=== PATIENT | male | born 1940 | race Caucasian/White ===

== ENCOUNTER 2016-11-08 16:38 | Observation (INO) | payer OTHER ==
[~2016-11-08] VITALS: Ht 157.5 cm; Wt 89.0 kg
[~2016-11-08 16:38] MED LIST: ALBUAER2 INH; ANT25 PO; NVLGI SC; POTA10TA32 PO; SRVDIN60 INH; VST25HP PO; ZOLP5TAB PO
--- NOTE | 2016-11-08 17:10 | DIAGNOSTIC IMAGING REPORT ---
CHEST ONE VIEW PORTABLE CLINICAL HISTORY: Chest Pain dyspnea COMPARISON STUDY: 09/10/2016 FINDINGS: The bones soft tissues and hemidiaphragms are normal. The cardiomediastinal silhouette is normal. The lungs are clear. The pulmonary vasculature is normal. IMPRESSION: Negative chest. Electronically signed by: Hayden Gonzalez M.D. 11/08/2016 5:09 PM Dictated Date/Time: 11/08/2016 5:09 PM
[2016-11-08 17:19] LABS: BASO % 0.7 %; BASO ABS # 0.06 K/uL (0-0.2); COMPLETE YES; EOS % 2.4 %; HEMATOCRIT 40.8 % (42-52); IG% 0.2 %; LYMPH % 19.8 %; MEAN CELL VOLUME 87.7 fL (80-100); MEAN CORPUSCULAR HEMOGLOBIN 30.3 pg (25-34); MEAN CORPUSCULAR HGB CONC 34.6 g/dl (32-36); MEAN PLATELET VOLUME 10.8 fL (7.4-10.4); MONO % 11.9 %; PLATELET COUNT 132 K/uL (130-400); RED BLOOD COUNT 4.65 M/uL (4.7-6.1); WHITE BLOOD COUNT 8.07 K/uL (4.8-10.8)
[2016-11-08] MEDS ORDERED: NVLGIPEN SC (17:22)
[2016-11-08] MEDS ORDERED: PRVHFAIN INH (17:26)
--- NOTE | 2016-11-08 17:27 | EMERGENCY ROOM VISIT NOTE ---
History Report prepared by Pranav: Darya Rahman Under the Supervision of: Dr. Dharmesh Neumann M.D. First contact with patient: 16:39 Stated Complaint: CHEST PAIN History of Present Illness The patient is a 76 year old male who presents to the Emergency Room with complaints of an episode of chest pain occurring [employer]. He was sitting in his chair when his chest pain began. The patient's [id number] called an ambulance. When EMS arrived the patient was hypotensive. He was given 1 nitro, aspirin, and fluids en route to the ED. He states that his pain has improved. The patient states that he has had chest pain intermittently for some time that resolves with nitro. He also reports shortness of breath with exertion that has been going on for a while as well. He has a history of [place] but denies any history of cardiac stents. Source of History: patient, EMS Onset: [employer]TER[employer] Position: chest Timing: other (episode) Modifying Factors (Worsening): exertion Modifying Factors (Relieving): other (nitro) Associated Symptoms: + SOB Review of Systems See HPI for pertinent positives & negatives. A total of 10 systems reviewed and were otherwise negative. 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 (5) Diabetes mellitus type 2 in obese (6) Diverticulosis (7) Dyslipidemia (8) GERD (gastroesophageal reflux disease) (9) GI bleed (10) Hiatal hernia (11) HTN (hypertension) (12) Kidney stone (13) Portal hypertensive gastropathy (14) Transaminitis Surgical Problems: (1) H/O hemorrhoidectomy (2) History of cardiac catheterization (3) History of colonoscopy (4) History of lumbar laminectomy Family History FHx: heart disease FATHER ( from [place] age 65) BROTHER (CABG in his 40s) Social History Smoking Status: Former Smoker Alcohol Use: none Housing Status: lives alone Current/Historical Medications Scheduled Empagliflozin (Jardiance), 10 MG PO DAILY Ferrous Gluconate (Ferrous Gluconate), 1 TAB PO BID Furosemide (Furosemide), 40 MG PO DAILY Insulin Aspart (Novolog Flexpen), 38 SC UD Insulin Glargine (Lantus Solostar), 45 UNITS SC BID Isosorbide Mononitrate Ext Rel (Imdur Ext Rel), 30 MG PO QAM Lactulose (Chronulac), 30 ML PO TID Losartan Potassium (Losartan Potassium), 25 MG PO DAILY Magnesium Oxide (Mag-Ox), 400 MG PO BID Metoprolol Tartrate (Lopressor), 25 MG PO BID Pantoprazole (Pantoprazole Sodium), 40 MG PO BID Potassium Chloride Microencaps (Potassium Chloride Er), 20 MEQ PO DAILY Rifaximin (Xifaxan), 550 MG PO BID Rosuvastatin Calcium (Rosuvastatin Calcium), 40 MG PO DAILY Tamsulosin HCl (Tamsulosin HCl), 0.4 MG PO DAILY Scheduled PRN Albuterol (Ventolin Hfa), 2 PUFFS INH Q4H PRN for Shortness of Breath Hydroxyzine HCl (Hydroxyzine Pamoate), 25 MG PO HS PRN for Anxiety Nitroglycerin (Nitrostat), 0.4 MG UT UD PRN for Chest Pain Zolpidem Tartrate (Ambien), 10 MG PO HS PRN for Sleep Allergies Coded Allergies: PRASHANT Inhibitors (Unverified Allergy, Severe, ANGIOEDEMA from 10/10/11 ED adm , 11/08/16) Simvastatin (Unverified Allergy, Unknown, RASH, SORE ALL OVER. 2013: Uses Crestor, 11/08/16) Physical Exam Vital Signs Date Time Temp Pulse Resp B/P Pulse Ox O2 Delivery O2 Flow Rate FiO2 11/08/16 17:30 64 9 92 11/08/16 17:28 94/52 11/08/16 17:15 61 19 92 11/08/16 17:02 62 11/08/16 17:00 62 15 94 11/08/16 16:58 96/48 11/08/16 16:48 94 Room Air 11/08/16 16:48 94 Room Air 11/08/16 16:48 36.5 65 20 112/52 94 Room Air Physical Exam GENERAL: Patient is well appearing and in no acute distress. HEENT: No acute trauma, normocephalic atraumatic, mucous membranes moist, no nasal congestion, no scleral icterus. NECK: No stridor, no adenopathy, no meningismus, trachea is midline. LUNGS: No dyspnea. Clear to auscultation and equal bilaterally. No wheeze, no rhonchi. HEART: Regular rate and rhythm. No murmurs, rubs, gallops appreciated. ABDOMEN: Soft, nontender, bowel sounds positive, no masses appreciated, no peritonitis. BACK: No midline tenderness, no CVA tenderness EXTREMITIES: Normal motion all extremities, no cyanosis, trace edema bilaterally. NEUROLOGIC: Alert and oriented, no acute motor or sensory deficits, no focal weakness, cranial nerves grossly intact. SKIN: No rash, no jaundice, no diaphoresis. Medical Decision & Procedures ER Provider Diagnostic Interpretation: Radiology results and stated below per my review and radiologist interpretation: CHEST ONE VIEW PORTABLE CLINICAL HISTORY: Chest Pain dyspnea COMPARISON STUDY: 09/10/2016 FINDINGS: The bones soft tissues and hemidiaphragms are normal. The cardiomediastinal silhouette is normal. The lungs are clear. The pulmonary vasculature is normal. IMPRESSION: Negative chest. Electronically signed by: Hayden Gonzalez M.D. 11/08/2016 5:09 PM Dictated Date/Time: 11/08/2016 5:09 PM Laboratory Results 11/08/16 16:14 Red Blood Count 4.65, Mean Corpuscular Volume 87.7, Mean Corpuscular Hemoglobin 30.3, Mean Corpuscular Hemoglobin Concent 34.6, Mean Platelet Volume 10.8, Neutrophils (%) (Auto) 65.0, Lymphocytes (%) (Auto) 19.8, Monocytes (%) (Auto) 11.9, Eosinophils (%) (Auto) 2.4, Basophils (%) (Auto) 0.7, Neutrophils # (Auto ) 5.24, Lymphocytes # (Auto) 1.60, Monocytes # (Auto) 0.96, Eosinophils # (Auto ) 0.19, Basophils # (Auto) 0.06 11/08/16 16:14 Test 11/08/16 16:14 White Blood Count 8.07 K/uL (4.8-10.8) Red Blood Count 4.65 M/uL (4.7-6.1) Hemoglobin 14.1 g/dL (14.0-18.0) Hematocrit 40.8 % (42-52) Mean Corpuscular Volume 87.7 fL (80-100) Mean Corpuscular Hemoglobin 30.3 pg (25-34) Mean Corpuscular Hemoglobin Concent 34.6 g/dl (32-36) Platelet Count 132 K/uL (130-400) Mean Platelet Volume 10.8 fL (7.4-10.4) Neutrophils (%) (Auto) 65.0 % Lymphocytes (%) (Auto) 19.8 % Monocytes (%) (Auto) 11.9 % Eosinophils (%) (Auto) 2.4 % Basophils (%) (Auto) 0.7 % Neutrophils # (Auto) 5.24 K/uL (1.4-6.5) Lymphocytes # (Auto) 1.60 K/uL (1.2-3.4) Monocytes # (Auto) 0.96 K/uL (0.11-0.59) Eosinophils # (Auto) 0.19 K/uL (0-0.5) Basophils # (Auto) 0.06 K/uL (0-0.2) RDW Standard Deviation 54.0 fL (36.4-46.3) RDW Coefficient of Variation 16.9 % (11.5-14.5) Immature Granulocyte % (Auto) 0.2 % Immature Granulocyte # (Auto) 0.02 K/uL (0.00-0.02) Anion Gap 11.0 mmol/L (3-11) Est Creatinine Clear Calc Drug Dose 34.6 ml/min Estimated GFR () 43.8 Estimated GFR (Non- 37.8 BUN/Creatinine Ratio 14.5 (10-20) Calcium Level 9.4 mg/dl (8.5-10.1) Laboratory results as reviewed by me. Medications Administered Medications (Trade) Dose Ordered Sig/Suman Route Start Time Stop Time Status Last Admin Dose Admin Sodium Chloride (Nss 1000ml) 1,000 ml @ 125 mls/hr Q8H STAT IV 11/08/16 17:42 11/08/16 20:43 DC 11/08/16 17:42 125 MLS/HR ECG Indication: chest pain Rate (beats per minute): 62 Rhythm: normal sinus Findings: no acute ischemic change, no ectopy Comparison ECG Date: 09/10/16 Change: no significant change ED Course 1639: The patient was evaluated in room C9. A complete history and physical exam was performed. 1741: NSS 1000 ml @ 125 mls/hr IV 1746: I reassessed the patient 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. He is feeling better and resting comfortably. I discussed the results and treatment plan with the patient. I answered all pertaining questions that he had. He expressed understanding and verbalized agreement. 1757: I spoke with Mariana Noland PA-C. We discussed the patients results and treatment plan. The patient will be evaluated by the [facility] for further management. 1810: I reassessed the patient and he is doing well. Medical Decision Differential: Cardiac Ischemia (STEMI, NSTEMI, Unstable Angina, etc), Aortic Dissection, Arrhythmia, Pulmonary Embolism, Pneumonia, Pneumothorax, MSK, Infectious, Pericarditis/Myocarditis, Esophageal Rupture, Gastrointestinal, amongst other pathologies entertained. 76 yr old male with reported history of CAD notes onset substernal chest pain this afternoon which resolved after SLNTG. Notes shob with exertion over last few days. Reportedly had hypotension on EMS arrival which resolved after NSS bolus, which I suspect was secondary to taking SLNTG prior to EMS arrival. No further symptoms. EKG unchanged from previous. With his age/history and this acute episode he will need to have further cardiac rule out. Stable throughout ED stay. Trop negative as are other labs. No evidence that this is PE, dissection, infectious in nature. Consults Time Called: 1749 Consulting Physician: Mariana Noland PA-C Returned Call: 1757 I spoke with Mariana Noland PA-C. We discussed the patients results and treatment plan. The patient will be evaluated by the [facility] for further management. Impression Primary Impression: Substernal precordial chest pain Scribe Attestation The scribe's documentation has been prepared under my direction and personally reviewed by me in its entirety. I confirm that the note above accurately reflects all work, treatment, procedures, and medical decision making performed by me. Departure Information Dispostion Being Evaluated By Hospitalist Referrals Atiya Baltazar D.O. (PCP)
[2016-11-08 17:36] LABS: BLOOD UREA NITROGEN 25 mg/dl (7-18); BUN/CREATININE RATIO 14.5 (10-20); CALCIUM 9.4 mg/dl (8.5-10.1); CARBON DIOXIDE 24 mmol/L (21-32); CHLORIDE 107 mmol/L (98-107); GLUCOSE 85 mg/dl (70-99); POTASSIUM 4.6 mmol/L (3.5-5.1); SODIUM 142 mmol/L (136-145)
[2016-11-08 17:40] LABS: CKMB/CK RATIO 2.2 (0-3.0)
[2016-11-08] MEDS ORDERED: SODIUM CHLORIDE 0.9% 1000ML 1,000 ML IV STA (17:42)
[2016-11-08] MEDS ORDERED: ONDANSETRON INJ 2 MG/ML 2 ML VIAL IV PRN (18:30)
[2016-11-08] MEDS ORDERED: ACETAMINOPHEN 325 MG TAB PO PRN (18:30)
[2016-11-08] MEDS ORDERED: NITROGLYCERIN 0.4 MG SL PER TAB CHARGE SL PRN (18:30)
[2016-11-08] MEDS ORDERED: GLUCAGON FOR INJ 1 MG VIAL SQ PRN (18:45)
[2016-11-08] MEDS ORDERED: ALBUTEROL HFA 8 GM INHALER INH PRN (18:45)
[2016-11-08] MEDS ORDERED: DEXTROSE 50% 50 ML SYR IV PRN (18:45)
[2016-11-08] MEDS ORDERED: ZOLPIDEM TARTRATE 5 MG TAB PO PRN (18:45)
[2016-11-08] MEDS ORDERED: hydrOXYzine HCL 25 MG TAB PO PRN (18:45)
[2016-11-08] MEDS ORDERED: MoRPHine SULFATE 2 MG/ML CARP IV PRN (18:45)
[2016-11-08] MEDS ORDERED: GLUCOSE 10 TABS/TUBE PO PRN (18:45)
[2016-11-08] MEDS ORDERED: GLUCOSE 40% GEL 15 GM TUBE PO PRN (18:45)
--- NOTE | 2016-11-08 18:58 | History and Physical ---
History & Physical Date & Time of Service: Nov 08, 2016 at 18:40 Chief Complaint: Chest Pain Primary Care Physician: Atiya Baltazar D.O. History of Present Illness Source: patient, family, clinic records, hospital records Patient seen and examined. 76 year old male with PMHx of CAD s/p stent, Severe Aortic Stenosis, HTN, HLD, KLEIN cirrhosis, CKD stage 3, and other problems listed below presents to the ED complaining of chest pain prior to arrival. Patient reports he was sitting relaxing when he developed substernal chest tightness that he rates as a 5/10. It was associated with SOB and diaphoresis. He took a nitro SL which helped alleviate the pain. EMS was called and he received Aspirin. By the time he got to the ED he was pain free. Patient reports he has had episodes like this in the past but they have never been bad enough to take nitro. Patient reports he had a URI last week and was on a Zpak. He reports he is feeling better. He denies fevers, chills, URI symptoms, radiation of chest pain, palpitations, nausea, vomiting ,diarrhea, dysuria, calf pain and edema. Patient had a LHC in 08/04 with mild CAD. Per patient he was told to stop Aspirin and Plavix at that time. When EMS arrived patient's BP was slightly low, it continues to be soft in the ED he is receiving gentle IVF hydration, Ivan are negative x 1, EKG is nonischemic, CXR is negative for acute changes. Patient is resting comfortably. He will be observed for further workup and treatment. 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 (5) Diabetes mellitus type 2 in obese Status: Chronic (6) Diverticulosis Status: Chronic (7) Dyslipidemia Status: Chronic (8) GERD (gastroesophageal reflux disease) Status: Chronic (9) GI bleed Status: Chronic (10) Hiatal hernia Status: Chronic (11) HTN (hypertension) Status: Chronic (12) Kidney stone Status: Resolved (13) Portal hypertensive gastropathy Status: Chronic (14) Transaminitis Status: Chronic Surgical Problems: (1) H/O hemorrhoidectomy Status: Resolved (2) History of cardiac catheterization Status: Resolved (3) History of colonoscopy Status: Resolved (4) History of lumbar laminectomy Status: Resolved Family History FHx: heart disease FATHER ( from [place] age 65) BROTHER (CABG in his 40s) Social History Smoking Status: Former Smoker Alcohol Use: none Housing status: lives alone Occupational Status: retired Immunizations History of Influenza Vaccine: Yes Influenza Vaccine Date: Jun 08, 2016 History of Tetanus Vaccine?: Yes Tetanus Immunization Date: Nov 30, 2007 History of Pneumococcal: Yes Pneumococcal Date: Mar 19, 2015 Allergies Coded Allergies: PRASHANT Inhibitors (Unverified Allergy, Severe, ANGIOEDEMA from 10/10/11 ED adm , 11/08/16) Simvastatin (Unverified Allergy, Unknown, RASH, SORE ALL OVER. 2013: Uses Crestor, 11/08/16) Home Medications Scheduled Empagliflozin (Jardiance), 10 MG PO DAILY Ferrous Gluconate (Ferrous Gluconate), 1 TAB PO BID Furosemide (Furosemide), 40 MG PO DAILY Insulin Aspart (Novolog Flexpen), 38 SC UD Insulin Glargine (Lantus Solostar), 45 UNITS SC BID Isosorbide Mononitrate Ext Rel (Imdur Ext Rel), 30 MG PO QAM Lactulose (Chronulac), 30 ML PO TID Losartan Potassium (Losartan Potassium), 25 MG PO DAILY Magnesium Oxide (Mag-Ox), 400 MG PO BID Metoprolol Tartrate (Lopressor), 25 MG PO BID Pantoprazole (Pantoprazole Sodium), 40 MG PO BID Potassium Chloride Microencaps (Potassium Chloride Er), 20 MEQ PO DAILY Rifaximin (Xifaxan), 550 MG PO BID Rosuvastatin Calcium (Rosuvastatin Calcium), 40 MG PO DAILY Tamsulosin HCl (Tamsulosin HCl), 0.4 MG PO DAILY Scheduled PRN Albuterol (Ventolin Hfa), 2 PUFFS INH Q4H PRN for Shortness of Breath Hydroxyzine HCl (Hydroxyzine Pamoate), 25 MG PO HS PRN for Anxiety Nitroglycerin (Nitrostat), 0.4 MG UT UD PRN for Chest Pain Zolpidem Tartrate (Ambien), 10 MG PO HS PRN for Sleep Review of Systems See above for pertinent positives & negatives. A total of 10 systems reviewed and were otherwise negative. Physical Exam Vital Signs Date Time Temp Pulse Resp B/P Pulse Ox O2 Delivery O2 Flow Rate FiO2 11/08/16 17:30 64 9 92 11/08/16 17:28 94/52 11/08/16 17:15 61 19 92 11/08/16 17:02 62 11/08/16 17:00 62 15 94 11/08/16 16:58 96/48 11/08/16 16:48 94 Room Air 11/08/16 16:48 94 Room Air 11/08/16 16:48 36.5 65 20 112/52 94 Room Air General Appearance: + pertinent finding (WD/WN 76 year old male lying in bed in NAD with family at bedside ) Head: normocephalic, atraumatic Eyes: PERRL, EOMI, sclerae normal ENT: hearing grossly normal, pharynx normal Neck: supple, no JVD Respiratory/Chest: chest non-tender, lungs clear, normal breath sounds, no respiratory distress, no accessory muscle use Cardiovascular: regular rate, rhythm, no edema, no gallop, no JVD, normal peripheral pulses, + systolic murmur (+3) Abdomen/GI: normal bowel sounds, non tender, soft Back: normal inspection, no muscle spasm Extremities/Musculoskelatal: no calf tenderness, normal capillary refill, no pedal edema Neurologic/Psych: alert, oriented x 3, + pertinent finding (no focal deficits noted on gross exam ) Skin: normal color, warm/dry, no rash Lymphatic: no adenopathy Diagnostics Laboratory Results Results Past 24 Hours Test 11/08/16 16:14 Range/Units White Blood Count 8.07 4.8-10.8 K/uL Red Blood Count 4.65 4.7-6.1 M/uL Hemoglobin 14.1 14.0-18.0 g/dL Hematocrit 40.8 42-52 % Mean Corpuscular Volume 87.7 80-100 fL Mean Corpuscular Hemoglobin 30.3 25-34 pg Mean Corpuscular Hemoglobin Concent 34.6 32-36 g/dl Platelet Count 132 130-400 K/uL Mean Platelet Volume 10.8 7.4-10.4 fL Neutrophils (%) (Auto) 65.0 % Lymphocytes (%) (Auto) 19.8 % Monocytes (%) (Auto) 11.9 % Eosinophils (%) (Auto) 2.4 % Basophils (%) (Auto) 0.7 % Neutrophils # (Auto) 5.24 1.4-6.5 K/uL Lymphocytes # (Auto) 1.60 1.2-3.4 K/uL Monocytes # (Auto) 0.96 0.11-0.59 K/uL Eosinophils # (Auto) 0.19 0-0.5 K/uL Basophils # (Auto) 0.06 0-0.2 K/uL RDW Standard Deviation 54.0 36.4-46.3 fL RDW Coefficient of Variation 16.9 11.5-14.5 % Immature Granulocyte % (Auto) 0.2 % Immature Granulocyte # (Auto) 0.02 0.00-0.02 K/uL Sodium Level 142 136-145 mmol/L Potassium Level 4.6 3.5-5.1 mmol/L Chloride Level 107 98-107 mmol/L Carbon Dioxide Level 24 21-32 mmol/L Anion Gap 11.0 3-11 mmol/L Blood Urea Nitrogen 25 7-18 mg/dl Creatinine 1.70 0.60-1.40 mg/dl Est Creatinine Clear Calc Drug Dose 34.6 ml/min Estimated GFR () 43.8 Estimated GFR (Non- 37.8 BUN/Creatinine Ratio 14.5 10-20 Random Glucose 85 70-99 mg/dl Calcium Level 9.4 8.5-10.1 mg/dl Total Creatine Kinase 67 39-308 U/L Creatine Kinase MB 1.5 0.5-3.6 ng/ml Creatine Kinase MB Ratio 2.2 0-3.0 Troponin I < 0.015 0-0.045 ng/ml Diagnostic Radiology CXR Per radiologist read: IMPRESSION: Negative chest. EKG NSR 62 BPM, LAD, QTc 450 Impression Assessment and Plan 76 year old male presents to the ED with chest pain that improved following nitro CHEST PAIN R/O ACS -Observation in tele -First set of CE negative in ED, EKG nonischemic -Risk factors:Known CAD s/p stent, HTN, HLD, h/o tobacco abuse, age -[facility] 08/04 with mild CAD -Serial Ivan and EKGs -Fasting lipid panel in AM -Echo pending to r/o heart wall abnormality -last echo with severe aortic stenosis -continue BB, Statin, Imdur -ASA daily -Nitro, morphine prn chest pain -Cardiology consult for further management input appreciated -AHA diet -CBC, PRP, Mg daily -VSS stable, monitor in tele GLENYS ON CKD STAGE 3 -crea 1.7 baseline 1.3 -BPs also soft ? dehydration -gentle IVF hydration -hold diuretic -repeat PRP in AM SEVERE AORTIC STENOSIS - per echo -lasix on hold for GLENYS -gentle IVF hydration -monitor volume status closely IDDM -BSG 85 -update A1c -SSI coverage -Pharmacy consulted for dosing - may need to decrease outpatient regimen prior to discharge -BSG AC HS -consistent carb diet IRON DEFICIENCY ANEMIA Hx of GI bleeds -hgb stable -continue Iron supplementation -follow H&H HTN -running slightly low secondary to nitro use or dehydration -gentle IVF hydration -hold Lasix, and losartan -continue BB with hold parameters -monitor in tele HLD -check lipid panel -continue Statin KLEIN CIRRHOSIS -continue Rifaximin, and Lactulose GERD -continue PPI BPH -continue Flomax DVT PROPHYLAXIS: Sq heparin CODE STATUS: FULL CODE DISPO:observation pending further workup Patient seen in collaboration with Dr. Prieto Agree with above H and P.[id number] presents with hx of Severe , KLEIN cirrhosis, Hx of anemia and G bleeds presents with chest pain. Patient was sitting and resting when he suddenly had chest pain 5/10 in severity and he took nitro which relived his pain and came to ER. currently chest pain free. Initially BP was on lower side. Denies any sob . Recently treated for URI and his cough is much better now. Afebrile. 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 a/p Chest pain rule out ACS initial workup negative recent cardiac cath mild CAD Hx of cad s/p stent to continue b wesly, Imdur and statin started on aspirin echo cardiology consult Severe Lasix on hold for arf monitor for volume overload VTE Prophylaxis VTE Risk Assessment Done? Y/N: Yes Risk Level: Moderate
[2016-11-08] MEDS ORDERED: PHARMACY GLYCEMIC MGMT CONSULT PRN (19:33)
[2016-11-08] MEDS ORDERED: SODIUM CHLORIDE 0.9% 1000ML 1,000 ML IV ONE (21:00)
[2016-11-08] MEDS: FERROUS GLUCONATE 324 MG TAB PO SCH (21:52)
[2016-11-08] MEDS: METOPROLOL TARTRATE 25 MG TAB PO SCH (21:52)
[2016-11-08] MEDS: LACTULOSE SYRUP 20 GM/30 ML UDC PO SCH (21:52)
[2016-11-08] MEDS: RIFAXIMIN TAB 550 MG TAB PO SCH (21:53)
[2016-11-08] MEDS: PANTOprazole SOD 40 MG TAB PO SCH (21:53)
[2016-11-08] MEDS: MAGNESIUM OXIDE 400 MG TAB PO SCH (21:53)
[2016-11-08] MEDS: INSULIN GLARGINE SOLOSTAR 100 UNITS/ML 3 ML PEN SC SCH (21:59)
[2016-11-08] MEDS: INSULIN ASPART 100 UNITS/ML 3 ML PEN SC SCH (21:59)
[2016-11-08] MEDS ORDERED: IV FLUIDS COMPLETED PRN (22:00)
[2016-11-08 22:05] VITALS: BP 138/56; PULSE 72; O2SAT 93
[2016-11-08 22:13] LABS: CKMB/CK RATIO 2.4 (0-3.0)
[2016-11-08 22:27] LABS: INR 1.1 (0.9-1.1); PARTIAL THROMBOPLASTIN RATIO 1.1; PROTHROMBIN TIME (PATIENT) 12.2 SECONDS (9.0-12.0)
[2016-11-08 22:32] VITALS: BP 138/56; PULSE 72; O2SAT 93; BMI 35.9
[2016-11-09] VITALS (8 sets, daily range): BP systolic 114–151; BP diastolic 61–83; PULSE 66–86; TEMP 36.4–36.9; O2SAT 93–95; Ht 157.5 cm; Wt 89.0 kg
[2016-11-09 04:07] LABS: HEMATOCRIT 38.2 % (42-52); MEAN CELL VOLUME 87.6 fL (80-100); MEAN CORPUSCULAR HEMOGLOBIN 30.3 pg (25-34); MEAN CORPUSCULAR HGB CONC 34.6 g/dl (32-36); RED BLOOD COUNT 4.36 M/uL (4.7-6.1)
[2016-11-09 04:15] LABS: MEAN PLATELET VOLUME 11.1 fL (7.4-10.4); PLATELET COUNT 91 K/uL (130-400)
[2016-11-09 04:24] LABS: BLOOD UREA NITROGEN 25 mg/dl (7-18); BUN/CREATININE RATIO 18.9 (10-20); CALCIUM 8.8 mg/dl (8.5-10.1); CARBON DIOXIDE 23 mmol/L (21-32); CHLORIDE 110 mmol/L (98-107); GLUCOSE 104 mg/dl (70-99); MAGNESIUM 2.3 mg/dl (1.8-2.4); POTASSIUM 4.4 mmol/L (3.5-5.1); SODIUM 143 mmol/L (136-145)
[2016-11-09 04:39] LABS: CHOLESTEROL 142 mg/dl (0-200); CKMB/CK RATIO 2.3 (0-3.0); HDL CHOLESTEROL 48 mg/dl; LDL CHOLESTEROL CALCULATED 67 mg/dl; TRIGLYCERIDES 137 mg/dl (0-150); VERY LOW DENSITY LIPOPROT CALC 27 mg/dl
[2016-11-09] MEDS: HEPARIN SOD 5000 UNIT/0.5 ML CARP SQ SCH ×3 (06:15→21:12)
[2016-11-09 06:26] LABS: ESTIMATED AVERAGE GLUCOSE 203 mg/dl; HA1C FLAG Normal (Normal)
--- NOTE | 2016-11-09 07:53 | Pharmacy Progress Note ---
Glycemic Control Intl Consult Date of Service Nov 09, 2016. Scope Glycemic Pharmacist consulted by MICHAEL Poon on 11/08/16 for glycemic control and to write orders per formerly [facility] inpatient glycemic control protocol Objective Weight (Kilograms): 89.000 Accuchecks BSG (last 24hrs): Test 11/08/16 16:14 11/08/16 21:58 11/09/16 03:57 Random Glucose 85 mg/dl (70-99) 104 mg/dl (70-99) Bedside Glucose 151 mg/dl (70-99) Laboratory Data (last 24hrs) Test 11/08/16 16:14 11/09/16 03:57 Anion Gap 11.0 mmol/L 10.0 mmol/L BUN/Creatinine Ratio 14.5 18.9 Blood Urea Nitrogen 25 mg/dl 25 mg/dl Creatinine 1.70 mg/dl 1.30 mg/dl Potassium Level 4.6 mmol/L 4.4 mmol/L Sodium Level 142 mmol/L 143 mmol/L White Blood Count 8.07 K/uL 6.60 K/uL Red Blood Count 4.65 M/uL Hemoglobin 14.1 g/dL Hematocrit 40.8 % Mean Corpuscular Volume 87.7 fL Mean Corpuscular Hemoglobin 30.3 pg Mean Corpuscular Hemoglobin Concent 34.6 g/dl Platelet Count 132 K/uL Mean Platelet Volume 10.8 fL Neutrophils (%) (Auto) 65.0 % Lymphocytes (%) (Auto) 19.8 % Monocytes (%) (Auto) 11.9 % Eosinophils (%) (Auto) 2.4 % Basophils (%) (Auto) 0.7 % Neutrophils # (Auto) 5.24 K/uL Lymphocytes # (Auto) 1.60 K/uL Monocytes # (Auto) 0.96 K/uL Eosinophils # (Auto) 0.19 K/uL Basophils # (Auto) 0.06 K/uL Hemoglobin A1c 8.7 % HbA1c Test 11/09/16 03:57 Hemoglobin A1c 8.7 % (4.5-5.6) H Recent Pertinent Medications Outpatient Anti-diabetic Regimen: * reported Lantus 45 units bid, Novolog 38 units tidm, Jardiance 10 mg daily * A1c = 8.7% 11/09/16 The patient is currently receiving: * Basal insulin: Lantus bid per protocol if BSG is less than 180, hold Lantus if BSG 181-220, give 8 units if BSG 221 or more, give 15 units * Correctional Insulin: Novolog Correction per scale ACHS Goal Range: Low 140 mg/dL - High 180 mg/dL Correction Factor: 25 mg/dL/unit * Prandial insulin: Per carb ratio of 1 unit per 9 grams CHO consumed * Oral Agents: none Risk Factors for Insulin Resistance: * Steroids: no * Infection: no * Pressors: no * IVF: NS @ 75 ml/hr * Recent Surgery: no * Diet: type 2 diabetic AHA renal * Mechanical Ventilation: no Assessment & Plan ASSESSMENT: * ADA & AACE recommend a goal blood sugar range 140-180 mg/dl for the majority of critically ill & non-critically ill patients. However, more stringent targets may be selected in individual cases. * 76 yo type 2 diabetic known to us from previous admissions. He typically uses much lower doses of insulin in hospital than reported as outpatient, so will start with conservative weight-based dosing and reassess in am. PLAN FOR INPATIENT GLYCEMIC CONTROL Holding outpatient oral diabetes medications * Basal insulin with LANTUS 0-15 units SQ BID per protocol above * Correctional Insulin with NOVOLOG per scale ACHS or Q6hrs while NPO * Goal Range: Low 140 mg/dL - High 180 mg/dL * Correction Factor: 25 mg/dL/unit * Nutritional / Prandial insulin per carb ratio of 1 unit per 9 grams CHO consumed * Please note that the plan above was derived based on current level of insulin resistance and hospital stress. These recommendations are appropriate for inpatient admission only. Plan of care upon discharge will need to be reassessed to avoid potential outpatient hypo/hyperglycemia. Thank you.
[2016-11-09] MEDS: INSULIN GLARGINE SOLOSTAR 100 UNITS/ML 3 ML PEN SC SCH ×2 (08:45→21:12)
[2016-11-09] MEDS: LACTULOSE SYRUP 20 GM/30 ML UDC PO SCH ×3 (08:45→21:00)
[2016-11-09] MEDS: FERROUS GLUCONATE 324 MG TAB PO SCH ×2 (08:45→21:06)
[2016-11-09] MEDS: METOPROLOL TARTRATE 25 MG TAB PO SCH ×2 (08:46→21:08)
[2016-11-09] MEDS: MAGNESIUM OXIDE 400 MG TAB PO SCH ×2 (08:46→21:07)
[2016-11-09] MEDS: PANTOprazole SOD 40 MG TAB PO SCH ×2 (08:46→21:07)
[2016-11-09] MEDS: ISOSORBIDE MONONITRATE 30 MG TABCR PO SCH (08:46)
[2016-11-09] MEDS: ASPIRIN 81 MG ECTAB PO SCH (08:46)
[2016-11-09] MEDS: RIFAXIMIN TAB 550 MG TAB PO SCH ×2 (08:46→21:07)
[2016-11-09] MEDS: ROSUVASTATIN CALCIUM 20 MG TAB PO SCH (08:47)
[2016-11-09] MEDS: TAMSULOSIN HCL 0.4 MG CAP PO SCH (08:47)
[2016-11-09] MEDS: INSULIN ASPART 100 UNITS/ML 3 ML PEN SC SCH ×4 (08:51→21:11)
[2016-11-09] MEDS ORDERED: ROSUVASTATIN CALCIUM 20 MG TAB PO SCH (09:00)
--- NOTE | 2016-11-09 09:41 | ECHOCARDIOGRAM REPORT ---
*NOTICE TO RECEIVING LIBERTARIAN AGENCY This information is strictly Confidential and protected under [place] law. [place] law prohibits you from making any further disclosure of this information unless further disclosure is expressly permitted by the written consent of the person to whom it pertains or is authorized by law. A general authorization for the release of medical or other information is not sufficient for this purpose. Hospital accepts no responsibility if the information is made available to any other person, INCLUDING THE PATIENT. Interpretation Summary * Name: RADHA ENRIQUEZ Study Date: 11/09/2016 07:22 AM BP: 149/83 mmHg * Patient Location: C.EDINP\S\EDINP 1\S\7 HR: 69 * : 1940 (M/d/yyyy) Gender: Male Height: 62 in * Age: 76 yrs Ethnicity: CA Weight: 196 lb * Ordering Physician: Mariana Noland * Referring Physician: Self, Referred * Performed By: Halie Trejo RCS * * Reason For Study: Chest Pain * BSA: 1.9 m2 * -- Conclusions -- * The left ventricular wall motion is normal. * Ejection Fraction = 60-65%. * The aortic valve is severely calcified. * The aortic valve is calcified to a moderate to severe degree. * Borderline severe aortic stenosis is present with peak transvalvular velocities of 3.8-4 m/s. * There is mild mitral regurgitation. * There is mild tricuspid regurgitation. * Mild to moderate pulmonary hypertension is present. * The pulmonary artery systolic pressure is calculated to be 49 mm Hg. Procedure Details * A complete two-dimensional transthoracic echocardiogram was performed (2D, M-mode, Doppler and color flow Doppler). Left Ventricle * The left ventricle is normal in size. * There is normal left ventricular wall thickness. * Left ventricular systolic function is normal. * Ejection Fraction = 60-65%. * The left ventricular wall motion is normal. Right Ventricle * The right ventricle is normal size. * The right ventricular systolic function is normal as assessed by tricuspid annular plane systolic excursion (TAPSE) (normal >1.5 cm). Atria * The left atrial size is normal. * Right atrial size is normal. * There is no evidence of atrial septal defect, but resolution does not allow assessment for a patent foramen ovale. Mitral Valve * The mitral valve is normal. * There is no mitral valve stenosis. * There is mild mitral regurgitation. Tricuspid Valve * The tricuspid valve is normal. * There is no tricuspid stenosis. * There is mild tricuspid regurgitation. Aortic Valve * The aortic valve is severely calcified. The aortic valve is calcified to a moderate to severe degree. * Borderline severe aortic stenosis is present with peak transvalvular velocities of 3.8-4 m/s. * There is no significant aortic regurgitation. Pulmonic Valve * The pulmonary valve is not well seen, but the Doppler examination is normal without significant regurgitation or stenosis. Great Vessels * The aortic root and proximal ascending aorta are normal sized. Pericardium/Pleural * There is no pericardial effusion. Great Vessels * Normal inferior vena cava diameter and respiratory variation suggests normal central venous pressure. Left Ventricular Diastolic Function * Grade I diastolic dysfunction, (abnormal relaxation pattern). MMode 2D Measurements and Calculations IVSd 0.96 cm IVSs 1.2 cm LVIDd 5.0 cm LVIDs 2.9 cm LVPWd 0.89 cm LVPWs 1.2 cm IVS/LVPW 1.1 FS 40.9 % EDV(Teich) 116.7 ml ESV(Teich) 33.3 ml EF(Teich) 71.5 % EDV(cubed) 123.0 ml ESV(cubed) 25.4 ml EF(cubed) 79.4 % % IVS thick 22.7 % % LVPW thick 34.0 % LV mass(C)d 162.6 grams LV mass(C)dI 85.8 grams/m\S\2 LV mass(C)s 104.0 grams LV mass(C)sI 54.9 grams/m\S\2 CO(Teich) 5.3 l/min CI(Teich) 2.8 l/min/m\S\2 SV(Teich) 83.5 ml SI(Teich) 44.1 ml/m\S\2 CO(cubed) 6.2 l/min CI(cubed) 3.3 l/min/m\S\2 SV(cubed) 97.6 ml SI(cubed) 51.5 ml/m\S\2 Ao root diam 3.1 cm Ao root area 7.6 cm\S\2 LA dimension 4.0 cm LA/Ao 1.3 LVOT diam 1.9 cm LVOT area 2.9 cm\S\2 LVAd ap4 35.3 cm\S\2 LVLd ap4 8.5 cm EDV(MOD-sp4) 117.0 ml LVAs ap4 16.8 cm\S\2 LVLs ap4 6.8 cm ESV(MOD-sp4) 34.0 ml EF(MOD-sp4) 70.9 % LVAd ap2 33.5 cm\S\2 LVLd ap2 8.8 cm EDV(MOD-sp2) 107.0 ml LVAs ap2 18.5 cm\S\2 LVLs ap2 7.1 cm ESV(MOD-sp2) 41.0 ml EF(MOD-sp2) 61.7 % CO(MOD-sp4) 5.3 l/min CI(MOD-sp4) 2.8 l/min/m\S\2 SV(MOD-sp4) 83.0 ml SI(MOD-sp4) 43.8 ml/m\S\2 CO(MOD-sp2) 4.2 l/min CI(MOD-sp2) 2.2 l/min/m\S\2 SV(MOD-sp2) 66.0 ml SI(MOD-sp2) 34.8 ml/m\S\2 Doppler Measurements and Calculations MV E max foster 115.7 cm/sec MV A max foster 110.2 cm/sec MV E/A 1.0 MV P1/2t max foster 121.3 cm/sec MV P1/2t 87.3 msec MVA(P1/2t) 2.5 cm\S\2 MV dec slope 406.7 cm/sec\S\2 MV dec time 0.30 sec Ao V2 max 406.4 cm/sec Ao max PG 66.2 mmHg Ao max PG (full) 61.9 mmHg Ao V2 mean 283.7 cm/sec Ao mean PG 36.7 mmHg Ao mean PG (full) 34.3 mmHg Ao V2 VTI 95.8 cm MARLEE(I,A) 0.81 cm\S\2 MARLEE(I,D) 0.81 cm\S\2 MARLEE(V,A) 0.73 cm\S\2 MARLEE(V,D) 0.73 cm\S\2 AI max foster 455.6 cm/sec AI max PG 83.8 mmHg AI dec slope 275.9 cm/sec\S\2 AI P1/2t 483.6 msec LV V1 max PG 4.3 mmHg LV V1 mean PG 2.4 mmHg LV V1 max 103.6 cm/sec LV V1 mean 72.8 cm/sec LV V1 VTI 27.2 cm SV(Ao) 725.5 ml SI(Ao) 382.8 ml/m\S\2 SV(LVOT) 77.6 ml SI(LVOT) 41.0 ml/m\S\2 PA V2 max 124.9 cm/sec PA max PG 6.2 mmHg TR max foster 297.7 cm/sec
--- NOTE | 2016-11-09 18:14 | Progress Note ---
Internal Med Progress Note Date of Service: Nov 09, 2016. Provider Documentation: SUBJECTIVE: The patient was seen and examined Denies any more Chest pain,palpitation,SOB No abdominal pain,nausea and or vomiting OBJECTIVE: Vital Signs-as noted below Exam: General-No distress Eyes-normal ENT-normal Neck-supple Lungs-clear to auscultate bilaterally Heart-Regular,no murmur Abdomen-Benign,no masses,bowel sound present Extremities-Trace edema bilaterally Neuro-AAOx3 Lab data as noted below. ASSESSMENT & PLAN: CHEST PAIN R/O ACS -Risk factors:Known CAD s/p stent, HTN, HLD, h/o tobacco abuse, age -[facility] 08/04 with mild CAD -Serial Ivan and EKGs-negative ,No ACS -Fasting lipid panel-noted -Echo:: * The left ventricular wall motion is normal. * Ejection Fraction = 60-65%. * The aortic valve is severely calcified. * The aortic valve is calcified to a moderate to severe degree. * Borderline severe aortic stenosis is present with peak transvalvular velocities of 3.8-4 m/s. * There is mild mitral regurgitation. * There is mild tricuspid regurgitation. * Mild to moderate pulmonary hypertension is present. * The pulmonary artery systolic pressure is calculated to be 49 mm Hg. -continue BB, Statin, Imdur and Aspirin -Nitro, morphine prn chest pain -Cardiology consult for further management input appreciated SEVERE AORTIC STENOSIS -may be the cause of Chest pain -Lasix on hold for GLENYS -gentle IVF hydration -Repeat ECHO supportive fo -patient remains free of symptoms GLENYS ON CKD STAGE 3 -crea 1.7 baseline 1.3 -gentle IVF hydration -hold diuretic -creatinine at baseline IDDM -update A1c-8.7 High -SSI coverage -Pharmacy consulted for dosing - may need to decrease outpatient regimen prior to discharge IRON DEFICIENCY ANEMIA Hx of GI bleeds Hb Stable Continue Iron HTN -running slightly low secondary to nitro use or dehydration -gentle IVF hydration -hold Lasix, and losartan -continue BB with hold parameters -will restart ACEI from tomorrow HLD -check lipid panel-noted -continue Statin KLEIN CIRRHOSIS -continue Rifaximin, and Lactulose GERD -continue PPI BPH -continue Flomax -no symptoms DVT PROPHYLAXIS: Sq heparin CODE STATUS: FULL CODE DISPO: Likely discharge tomorrow Vital Signs: Date Time Temp Pulse Resp B/P Pulse Ox O2 Delivery O2 Flow Rate FiO2 11/09/16 16:00 94 Room Air 11/09/16 15:43 36.4 73 20 114/67 94 Room Air 11/09/16 12:00 Room Air 11/09/16 10:57 36.7 86 18 114/63 Room Air 11/09/16 08:28 36.6 68 18 151/63 93 Room Air 11/09/16 08:20 Room Air 11/09/16 07:53 68 11/09/16 06:15 64 11/09/16 04:45 36.7 66 20 149/83 94 Room Air 11/09/16 04:45 Room Air 11/08/16 22:32 72 138/56 93 Room Air 11/08/16 22:05 72 138/56 93 Room Air 11/08/16 18:58 65 18 130/61 94 Room Air Lab Results: Results Past 24 Hours Test 11/08/16 21:37 11/08/16 21:58 11/08/16 22:05 11/09/16 03:57 Range/Units Total Creatine Kinase 54 65 39-308 U/L Creatine Kinase MB 1.3 1.5 0.5-3.6 ng/ml Creatine Kinase MB Ratio 2.4 2.3 0-3.0 Troponin I < 0.015 < 0.015 0-0.045 ng/ml Bedside Glucose 151 70-99 mg/dl Prothrombin Time 12.2 9.0-12.0 SECONDS Prothromb Time International Ratio 1.1 0.9-1.1 Activated Partial Thromboplast Time 29.5 21.0-31.0 SECONDS Partial Thromboplastin Ratio 1.1 White Blood Count 6.60 4.8-10.8 K/uL Red Blood Count 4.36 4.7-6.1 M/uL Hemoglobin 13.2 14.0-18.0 g/dL Hematocrit 38.2 42-52 % Mean Corpuscular Volume 87.6 80-100 fL Mean Corpuscular Hemoglobin 30.3 25-34 pg Mean Corpuscular Hemoglobin Concent 34.6 32-36 g/dl RDW Standard Deviation 54.7 36.4-46.3 fL RDW Coefficient of Variation 17.0 11.5-14.5 % Platelet Count 91 130-400 K/uL Mean Platelet Volume 11.1 7.4-10.4 fL Sodium Level 143 136-145 mmol/L Potassium Level 4.4 3.5-5.1 mmol/L Chloride Level 110 98-107 mmol/L Carbon Dioxide Level 23 21-32 mmol/L Anion Gap 10.0 3-11 mmol/L Blood Urea Nitrogen 25 7-18 mg/dl Creatinine 1.30 0.60-1.40 mg/dl Est Creatinine Clear Calc Drug Dose 45.3 ml/min Estimated GFR () 60.6 Estimated GFR (Non- 52.3 BUN/Creatinine Ratio 18.9 10-20 Random Glucose 104 70-99 mg/dl Estimated Average Glucose 203 mg/dl Hemoglobin A1c 8.7 4.5-5.6 % Calcium Level 8.8 8.5-10.1 mg/dl Magnesium Level 2.3 1.8-2.4 mg/dl Triglycerides Level 137 0-150 mg/dl Cholesterol Level 142 0-200 mg/dl HDL Cholesterol 48 mg/dl LDL Cholesterol, Calculated 67 mg/dl VLDL Cholesterol, Calculated 27 mg/dl Cholesterol/HDL Ratio 3.0 Test 11/09/16 08:13 11/09/16 11:05 11/09/16 16:22 Range/Units Bedside Glucose 136 254 171 70-99 mg/dl
--- NOTE | 2016-11-09 21:42 | CARDIOLOGY CONSULTATION ---
DATE OF CONSULTATION: 11/09/2016 HISTORY OF PRESENT ILLNESS: Bryan Quintero is a 76-year-old male seen in cardiology consultation per the request of Mariana Noland PA-C for the evaluation of chest discomfort. The patient is well known to our cardiology practice, having been followed by Dr. Hemphill and Carolin Silver. He is also followed at the valve clinic at [facility] [place] for progressive aortic stenosis. He had undergone cardiac catheterization on 07/20/2016 and was found to have patent coronary arteries with mild nonobstructive disease. Hemodynamic assessment included a calculated aortic valve area of 0.91 and a mean gradient across the aortic valve was 42 in the hoisting laborer at that time. The patient was therefore referred for an evaluation with the valve clinic. After that visit, a repeat echocardiogram was performed on 08/31/2016, and it was recommended by the valve clinic that per Dr. Corley's last note, that a repeat echocardiogram should be performed at a 6-month interval, doing February 2017, for further assessment and that the aortic valve replacement was not necessary at the present time in August. The patient had since been feeling relatively well. On the day of admission yesterday, he was sitting in a recliner and had midline chest discomfort. He took a nitroglycerin with subsequent relief. An EKG performed on arrival to the hospital revealed normal sinus rhythm with possible age undetermined septal infarction pattern, no significant ST changes. Repeat EKG performed this morning was normal. Cardiac enzymes have been normal. A repeat echocardiogram was performed today, revealing borderline severe aortic stenosis with peak valvular velocities of 3.8-4 m/sec, similar to his prior studies. PAST MEDICAL HISTORY: 1. Coronary artery disease with stent to the right coronary artery in 2009 and 2012, in-stent restenosis was noted, for which he underwent repeat drug-eluting stent, most recently had cardiac catheterization 07/20/2016 and revealed patent coronary arteries. 2. Cirrhosis due to nonalcoholic steatohepatitis. 3. Type 2 diabetes mellitus. 4. Diverticulosis. 5. Dyslipidemia. 6. GERD. 7. History of gastrointestinal bleeding, for which he was hospitalized in June 2016 with hemoglobin of 7.1 and required transfusion of 2 units of packed red blood cells. He has a past evidence of portal hypertensive gastropathy. PAST SURGICAL HISTORY: 1. Cardiac catheterization x3 as noted above. 2. Hemorrhoid surgery. 3. Colonoscopy. 4. Lumbar laminectomy. FAMILY HISTORY: Father of an PR at age 65. Brother had CABG in his 40s. SOCIAL HISTORY: The patient is a former smoker, his family helps support him at home. ALLERGIES: PRASHANT INHIBITORS AND SIMVASTATIN. MEDICATIONS: Reviewed and are available in the electronic medical record. COMPREHENSIVE REVIEW OF SYSTEMS: A 10-point review of systems was reviewed and is negative with the exception of that above. PHYSICAL EXAMINATION: VITAL SIGNS: Temperature 36.4, heart rate 73, blood pressure 114/67, pulse oximetry 94% on room air. GENERAL APPEARANCE: Awake, alert and oriented x3, no acute distress. HEENT: Extraocular muscles were intact. Pupils equal and reactive to light. NECK: No bruits or cervical lymphadenopathy. CARDIOVASCULAR: Regular rate. No murmurs, rubs or gallops. ABDOMEN: Positive bowel sounds. Soft, nontender, nondistended. EXTREMITIES: No edema. NEUROLOGIC: No focal deficits. DIAGNOSTIC DATA: Cardiac catheterization performed in July as noted above. Echocardiogram as noted above. Cardiac enzymes negative this admission. FINAL IMPRESSION: A 76-year-old male. 1. Transient chest discomfort, relieved, negative cardiac enzymes x3. 2. Borderline severe to severe aortic stenosis, for which he has been followed closely as an outpatient. RECOMMENDATIONS: Given his negative cardiac enzymes and recent cardiac catheterization results, I am doubtful that this is due to an acute coronary syndrome. His symptoms did occur at rest. I think we should continue to monitor the patient. If he rests well tonight and is able to get up tomorrow and to ambulate without any significant symptoms, I think we could continue close outpatient followup of his valvular heart disease. Based on his echocardiogram, he certainly has aortic valve stenosis and typically the question is whether or not the patient is asymptomatic as symptoms would determine the timing of a valve procedure. He is being considered for transcatheter aortic valve replacement as he has some degree of surgical risk of course because of his underlying comorbidities including his liver disease. Further recommendations will be forthcoming tomorrow. If he feels well, we will likely have him reassessed as an outpatient and will recommend closer outpatient followup with the valve clinic, perhaps prior to the 6-month evaluation that had been planned otherwise. By his invasive hemodynamics, he certainly has severe aortic stenosis. He does have some degree of difficulty expressing himself and therefore to some degree, it is difficult to assess his symptoms. Based on his blood work, he did appear to have some degree of dehydration on admission, which could be something that would provoke worsening bowel symptoms if he was dehydrated. This seems to have improved in the interim. MTDD
[2016-11-10 03:34] VITALS: BP 93/53; PULSE 68; TEMP 37.1; O2SAT 94
[2016-11-10 04:39] VITALS: BP 93/52
[2016-11-10] MEDS: HEPARIN SOD 5000 UNIT/0.5 ML CARP SQ SCH (06:16)
[2016-11-10 07:26] VITALS: BP 135/82; PULSE 82; TEMP 36.3; O2SAT 100
[2016-11-10 07:37] VITALS: BP 112/73; PULSE 67; TEMP 36.9; O2SAT 94
[2016-11-10] MEDS: LACTULOSE SYRUP 20 GM/30 ML UDC PO SCH (07:54)
[2016-11-10] MEDS: ASPIRIN 81 MG ECTAB PO SCH (07:55)
[2016-11-10] MEDS: METOPROLOL TARTRATE 25 MG TAB PO SCH (07:55)
[2016-11-10] MEDS: TAMSULOSIN HCL 0.4 MG CAP PO SCH (07:55)
[2016-11-10] MEDS: PANTOprazole SOD 40 MG TAB PO SCH (07:55)
[2016-11-10] MEDS: ISOSORBIDE MONONITRATE 30 MG TABCR PO SCH (07:55)
[2016-11-10] MEDS: FERROUS GLUCONATE 324 MG TAB PO SCH (07:55)
[2016-11-10] MEDS: ROSUVASTATIN CALCIUM 20 MG TAB PO SCH (07:56)
[2016-11-10] MEDS: RIFAXIMIN TAB 550 MG TAB PO SCH (07:56)
[2016-11-10] MEDS: MAGNESIUM OXIDE 400 MG TAB PO SCH (07:56)
[2016-11-10] MEDS: INSULIN GLARGINE SOLOSTAR 100 UNITS/ML 3 ML PEN SC SCH (07:57)
[2016-11-10] MEDS: INSULIN ASPART 100 UNITS/ML 3 ML PEN SC SCH ×2 (07:57→12:30)
--- NOTE | 2016-11-10 08:36 | Clinical Documentation Query ---
CLINICAL DOCUMENTATION QUERY 76 year old male who presents to the Emergency Room with complaints of an episode of chest pain In your clinical opinion is this patient being managed for: ( + ) Chronic diastolic (preserved EF) CHF monitored with daily weights and I/O's. ( ) Other explanation of clinical findings (Please Explain) ( ) Unable to determine (Please Define) ( ) Need to Discuss ( ) Not Agree The medical record reflects the following clinical findings, treatment, and risk factors. Clinical Indicators: Normally take PO Lasix at home. Echo showed normal EF with severe aortic stensos, pulmonary htn, and mitral and tricuspid regurgitation. Treatment: telemetry, I/O's, daily weights, cardiology consult, Lasix held for GLENYS Risk Factors: Age, HTN, CKD, valvular HD. Please clarify and document your clinical opinion in the progress notes and discharge summary. Terms such as "probable", "suspected", "likely", "questionable", "possible", or "still to be ruled out" are acceptable. IF IN AGREEMENT, YOU MUST DOCUMENT ABOVE DIAGNOSTIC STATEMENT IN DAILY PROGRESS NOTES AND DISCHARGE SUMMARY. This document is not part of the patient's record. Thank You, Feliberto Choudhury, RN [phone]
[2016-11-10 11:27] VITALS: BP 101/62; PULSE 69; TEMP 36.6; O2SAT 95
[2016-11-10 11:31] VITALS: BP 101/62; PULSE 69; TEMP 36.6; O2SAT 95
--- NOTE | 2016-11-10 12:31 | Progress Note ---
Internal Med Progress Note Date of Service: Nov 10, 2016. Provider Documentation: SUBJECTIVE: The patient was seen and examined Denies any more Chest pain,palpitation,SOB No abdominal pain,nausea and or vomiting Remains stable No more CP,no arrhythmia OBJECTIVE: Vital Signs-as noted below Exam: General-No distress Eyes-normal ENT-normal Neck-supple Lungs-clear to auscultate bilaterally Heart-Regular,no murmur Abdomen-Benign,no masses,bowel sound present Extremities-Trace edema bilaterally Neuro-AAOx3 Lab data as noted below. ASSESSMENT & PLAN: CHEST PAIN R/O ACS -Risk factors:Known CAD s/p stent, HTN, HLD, h/o tobacco abuse, age -[facility] 08/04 with mild CAD -Serial Ivan and EKGs-negative ,No ACS -Fasting lipid panel-noted -Echo:: * The left ventricular wall motion is normal. * Ejection Fraction = 60-65%. * The aortic valve is severely calcified. * The aortic valve is calcified to a moderate to severe degree. * Borderline severe aortic stenosis is present with peak transvalvular velocities of 3.8-4 m/s. * There is mild mitral regurgitation. * There is mild tricuspid regurgitation. * Mild to moderate pulmonary hypertension is present. * The pulmonary artery systolic pressure is calculated to be 49 mm Hg. -continue BB, Statin, Imdur and Aspirin -Nitro, morphine prn chest pain -Cardiology consult for further management input appreciated -increase ambulation -if remains asymptomatic-may be discharged Chronic diastolic (preserved EF) CHF monitored with daily weights and I/O's. Will restart Lasix on discharge SEVERE AORTIC STENOSIS -may be the cause of Chest pain -Lasix on hold for GLENYS -gentle IVF hydration -Repeat ECHO supportive fo -patient remains free of symptoms -Frequent OP follow up for Aortic Valve surgery down the line GLENYS ON CKD STAGE 3 -crea 1.7 baseline 1.3 -gentle IVF hydration -hold diuretic -creatinine at baseline IDDM -update A1c-8.7 High -SSI coverage -Pharmacy consulted for dosing - may need to decrease outpatient regimen prior to discharge IRON DEFICIENCY ANEMIA Hx of GI bleeds Hb Stable Continue Iron HTN -running slightly low secondary to nitro use or dehydration -gentle IVF hydration -hold Lasix, and losartan -continue BB with hold parameters -Blood pressure remains lower side -will restart Furosemide and hold Losartan for now HLD -check lipid panel-noted -continue Statin KLEIN CIRRHOSIS -continue Rifaximin, and Lactulose GERD -continue PPI BPH -continue Flomax -no symptoms DVT PROPHYLAXIS: Sq heparin CODE STATUS: FULL CODE DISPO: Likely discharge today if OK with cardiology Vital Signs: Date Time Temp Pulse Resp B/P Pulse Ox O2 Delivery O2 Flow Rate FiO2 11/10/16 12:00 Room Air 11/10/16 11:31 36.6 69 18 95 Room Air 11/10/16 11:27 36.6 69 18 101/62 95 Room Air 11/10/16 08:00 Room Air 11/10/16 07:37 36.9 67 18 112/73 94 Room Air 11/10/16 07:26 36.3 82 18 135/82 100 Room Air 11/10/16 04:39 93/52 11/10/16 04:00 Room Air 11/10/16 03:34 37.1 68 21 93/53 94 Room Air 11/09/16 23:59 Room Air 11/09/16 23:12 36.9 76 20 118/61 93 Room Air 11/09/16 20:13 36.8 67 18 127/65 95 Room Air 11/09/16 20:00 94 Room Air 11/09/16 16:00 94 Room Air 11/09/16 15:43 36.4 73 20 114/67 94 Room Air Lab Results: Results Past 24 Hours Test 11/09/16 16:22 11/09/16 20:53 11/10/16 06:37 11/10/16 11:26 Range/Units Bedside Glucose 171 206 164 250 70-99 mg/dl
--- NOTE | 2016-11-10 14:46 | Cardiology Follow-Up ---
Subjective General Date of Service: Nov 10, 2016. Chief Complaint: follow up chest pain , Pt evaluation today including: conversation w/ patient, physical exam History of Present Illness The patient is a 76 year old male seen in follow up. Patient feels well. No chest pain yesterday , overnight, or today. Telemetry reveals stable SR. Allergies Coded Allergies: PRASHANT Inhibitors (Verified Allergy, Severe, ANGIOEDEMA from 10/10/11 ED adm, 11/09/16) Simvastatin (Verified Allergy, Unknown, RASH, SORE ALL OVER. 2013: Uses Crestor, 11/09/16) Social History Smoking Status: Unknown if Ever Smoked Hx Tobacco Use In Past Year?: No Hx Alcohol Use - Type And Amou: No Hx Substance Use - Type And Am: No Problem List Medical Problems: (1) CHF (congestive heart failure) Status: Acute (2) GI bleed Status: Chronic (3) Hyperammonemia Status: Acute (4) Left sided chest pain Status: Acute (5) Renal insufficiency Status: Acute (6) Substernal precordial chest pain Status: Acute Physical Exam Vital Signs Last Vital Signs Documentation Date Time Temp Pulse Resp B/P Pulse Ox O2 Delivery O2 Flow Rate FiO2 11/10/16 12:00 Room Air 11/10/16 11:31 36.6 69 18 95 11/10/16 11:27 101/62 Physical Exam Constitutional: Level of Distress: NAD Neck: supple Lungs: Auscultation: no wheezing, no rales/crackles, no rhonchi Cardiovascular: Heart Auscultation: RRR, II/ JACK Extremities: no edema Neurologic: Gait & Station: pertinent finding (no focal deficit ) Assessment and Plan Assessment and Plan Impression: 1. Chest pain , at rest, transient, with negative EKG, negative troponin 2. , Severe by cath fall 2015, borderline severe on recent echo as outpt 2015 and again this admission, Perhaps echo Doppler is underestimating severity of the . Pt had been seen [place] [facility], plan was to hold off on TAVR and reassess with echo in 02/2017. Plan: Pt stable at present. I am not certain if the transient symptoms are suggestive of worsening . Pt is a poor historian. Doubt this was due to progressive CAD. Stable for DC today. Pt missed visit with Dr Hemphill yesterday because pt was admitted. I have requested an outpt visit with his primary electromechanical technician, Dr Hemphill , in 1- 2 weeks for close follow up and determine if follow up visit with valve clinic should be moved up for re-consideration of timing of TAVR. Case discussed with pt's daughter in law, Irena , by phone, and with Dr Ragland. Laboratory Results Last 24 Hours Test 11/09/16 16:22 11/09/16 20:53 11/10/16 06:37 11/10/16 11:26 Bedside Glucose 171 mg/dl 206 mg/dl 164 mg/dl 250 mg/dl
--- NOTE | 2016-11-10 14:57 | Discharge Instructions ---
Discharge Instructions Admission Reason for Admission: Substernal Precordial Chest Pain Discharge Discharge Diagnosis / Problem: Chest Pain-No ACS,Aortic Stenosis Discharge Goals Goal(s): Prevent Disease Progression Activity Recommendations Activity Limitations: resume your previous activity (As Tolerated) . Instructions / Follow-Up Instructions / Follow-Up Dr Leiva on 11/15/16 at 10:50 AM,Cardiology will call with appointment Current Hospital Diet Patient's current hospital diet: AHA Diet (Heart Healthy), Diabetes Type 2 Diet , Renal Diet Discharge Diet Recommended Diet: Diabetes Type 2 Diet Pending Studies Studies pending at discharge: no Laboratory Results Hemoglobin A1c Test 11/09/16 03:57 Range/Units Estimated Average Glucose 203 mg/dl Hemoglobin A1c 8.7 H 4.5-5.6 % Lipid Panel Test 11/09/16 03:57 Range/Units Triglycerides Level 137 0-150 mg/dl Cholesterol Level 142 0-200 mg/dl HDL Cholesterol 48 mg/dl Cholesterol/HDL Ratio 3.0 LDL Cholesterol, Calculated 67 mg/dl Medical Emergencies . Who to Call and When: Medical Emergencies: If at any time you feel your situation is an emergency, please call 911 immediately. . Non-Emergent Contact Non-Emergency issues call your: Primary Care Provider . . "Provider Documentation" section prepared by Precious Ragland. VTE Core Measure Inpt VTE Proph given/why not?: Unfractionated heparin SQ
--- NOTE | 2016-11-10 19:01 | Discharge Summary ---
Discharge Summary Date of Service Nov 10, 2016. Discharge Summary Admission Date: Nov 09, 2016 at 09:41 Discharge Date: Nov 10, 2016 Discharge Disposition: Home Principal Diagnosis: Chest Pain-No ACS,Aortic Stenosis Secondary Diagnoses/Problems: Please see H&P Consultations: Cardiology Medication Reconciliation Continued Medications: Albuterol (Ventolin Hfa) 60 Puffs/5400 Mcg Aers 2 PUFFS INH Q4H PRN for Shortness of Breath Empagliflozin (Jardiance) 10 Mg Tab 10 MG PO DAILY Ferrous Gluconate (Ferrous Gluconate) 324 Mg Tab 1 TAB PO BID Furosemide (Furosemide) 40 Mg Tab 40 MG PO DAILY Hydroxyzine HCl (Hydroxyzine Pamoate) 25 Mg Tab 25 MG PO HS PRN for Anxiety Insulin Aspart (Novolog Flexpen) 100 Units/Ml Inj 38 SC UD TAKE 38 UNITS BEFORE BREAKFAST,LUNCH, AND EVENING MEAL OR DIRECTED Insulin Glargine (Lantus Solostar) 100 Unit/Ml Inj 45 UNITS SC BID, #30 Isosorbide Mononitrate Ext Rel (Imdur Ext Rel) 30 Mg Tabcr 30 MG PO QAM Lactulose (Chronulac) 10 Gm/15 Ml Syrp 30 ML PO TID TAKE 30ML BY MOUTH 3 TIMES A DAY. HOLD ADDITIONAL DOSE FOR THAT DAY IF ALREADY HAD 3 BOWEL MOVEMENTS Losartan Potassium (Losartan Potassium) 25 Mg Tab 25 MG PO DAILY Magnesium Oxide (Mag-Ox) 400 Mg Tab 400 MG PO BID, TAB Metoprolol Tartrate (Lopressor) 25 Mg Tab 25 MG PO BID Nitroglycerin (Nitrostat) 0.4 Mg Tab 0.4 MG UT UD PRN for Chest Pain PLACE ONE TABLET UNDER THE TONGUE EVERY 5 MINUTES FOR UP TO 3 DOSES IF NEEDED FOR CHEST PAIN Pantoprazole (Pantoprazole Sodium) 40 Mg Tab 40 MG PO BID Potassium Chloride Microencaps (Potassium Chloride Er) 10 Meq Tab 20 MEQ PO DAILY Rifaximin (Xifaxan) 550 Mg Tab 550 MG PO BID, TAB Rosuvastatin Calcium (Rosuvastatin Calcium) 40 Mg Tab 40 MG PO DAILY Tamsulosin HCl (Tamsulosin HCl) 0.4 Mg Cap 0.4 MG PO DAILY Zolpidem Tartrate (Ambien) 5 Mg Tab 10 MG PO HS PRN for Sleep, TAB Admission Information HPI (per Admitting provider): Patient seen and examined. 76 year old male with PMHx of CAD s/p stent, Severe Aortic Stenosis, HTN, HLD, KLEIN cirrhosis, CKD stage 3, and other problems listed below presents to the ED complaining of chest pain prior to arrival. Patient reports he was sitting relaxing when he developed substernal chest tightness that he rates as a 5/10. It was associated with SOB and diaphoresis. He took a nitro SL which helped alleviate the pain. EMS was called and he received Aspirin. By the time he got to the ED he was pain free. Patient reports he has had episodes like this in the past but they have never been bad enough to take nitro. Patient reports he had a URI last week and was on a Zpak. He reports he is feeling better. He denies fevers, chills, URI symptoms, radiation of chest pain, palpitations, nausea, vomiting ,diarrhea, dysuria, calf pain and edema. Patient had a LHC in 08/04 with mild CAD. Per patient he was told to stop Aspirin and Plavix at that time. When EMS arrived patient's BP was slightly low, it continues to be soft in the ED he is receiving gentle IVF hydration, Ivan are negative x 1, EKG is nonischemic, CXR is negative for acute changes. Patient is resting comfortably. He will be observed for further workup and treatment. 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 (5) Diabetes mellitus type 2 in obese Status: Chronic (6) Diverticulosis Status: Chronic (7) Dyslipidemia Status: Chronic (8) GERD (gastroesophageal reflux disease) Status: Chronic (9) GI bleed Status: Chronic (10) Hiatal hernia Status: Chronic (11) HTN (hypertension) Status: Chronic (12) Kidney stone Status: Resolved (13) Portal hypertensive gastropathy Status: Chronic (14) Transaminitis Status: Chronic Surgical Problems: (1) H/O hemorrhoidectomy Status: Resolved (2) History of cardiac catheterization Status: Resolved (3) History of colonoscopy Status: Resolved (4) History of lumbar laminectomy Status: Resolved Family History FHx: heart disease FATHER ( from [place] age 65) BROTHER ([place] in his 40s) Social History Smoking Status: Former Smoker Alcohol Use: none Housing status: lives alone Occupational Status: retired Immunizations History of Influenza Vaccine: Yes Influenza Vaccine Date: Jun 08, 2016 History of Tetanus Vaccine?: Yes Tetanus Immunization Date: Nov 30, 2007 History of Pneumococcal: Yes Pneumococcal Date: Mar 19, 2015 Allergies Coded Allergies: PRASHANT Inhibitors (Unverified Allergy, Severe, ANGIOEDEMA from 10/10/11 ED adm , 11/08/16) Simvastatin (Unverified Allergy, Unknown, RASH, SORE ALL OVER. 2013: Uses Crestor, 11/08/16) Home Medications Scheduled Empagliflozin (Jardiance), 10 MG PO DAILY Ferrous Gluconate (Ferrous Gluconate), 1 TAB PO BID Furosemide (Furosemide), 40 MG PO DAILY Insulin Aspart (Novolog Flexpen), 38 SC UD Insulin Glargine (Lantus Solostar), 45 UNITS SC BID Isosorbide Mononitrate Ext Rel (Imdur Ext Rel), 30 MG PO QAM Lactulose (Chronulac), 30 ML PO TID Losartan Potassium (Losartan Potassium), 25 MG PO DAILY Magnesium Oxide (Mag-Ox), 400 MG PO BID Metoprolol Tartrate (Lopressor), 25 MG PO BID Pantoprazole (Pantoprazole Sodium), 40 MG PO BID Potassium Chloride Microencaps (Potassium Chloride Er), 20 MEQ PO DAILY Rifaximin (Xifaxan), 550 MG PO BID Rosuvastatin Calcium (Rosuvastatin Calcium), 40 MG PO DAILY Tamsulosin HCl (Tamsulosin HCl), 0.4 MG PO DAILY Scheduled PRN Albuterol (Ventolin Hfa), 2 PUFFS INH Q4H PRN for Shortness of Breath Hydroxyzine HCl (Hydroxyzine Pamoate), 25 MG PO HS PRN for Anxiety Nitroglycerin (Nitrostat), 0.4 MG UT UD PRN for Chest Pain Zolpidem Tartrate (Ambien), 10 MG PO HS PRN for Sleep Review of Systems See above for pertinent positives & negatives. A total of 10 systems reviewed and were otherwise negative. Physical Ex - H&P Physical Exam Vital Signs Date Time Temp Pulse Resp B/P Pulse Ox O2 Delivery O2 Flow Rate FiO2 11/08/16 17:30 64 9 92 11/08/16 17:28 94/52 11/08/16 17:15 61 19 92 11/08/16 17:02 62 11/08/16 17:00 62 15 94 11/08/16 16:58 96/48 11/08/16 16:48 94 Room Air 11/08/16 16:48 94 Room Air 11/08/16 16:48 36.5 65 20 112/52 94 Room Air General Appearance: + pertinent finding (WD/WN 76 year old male lying in bed in NAD with family at bedside ) Head: normocephalic, atraumatic Eyes: PERRL, EOMI, sclerae normal ENT: hearing grossly normal, pharynx normal Neck: supple, no JVD Respiratory/Chest: chest non-tender, lungs clear, normal breath sounds, no respiratory distress, no accessory muscle use Cardiovascular: regular rate, rhythm, no edema, no gallop, no JVD, normal peripheral pulses, + systolic murmur (+3) Abdomen/GI: normal bowel sounds, non tender, soft Back: normal inspection, no muscle spasm Extremities/Musculoskelatal: no calf tenderness, normal capillary refill, no pedal edema Neurologic/Psych: alert, oriented x 3, + pertinent finding (no focal deficits noted on gross exam ) Skin: normal color, warm/dry, no rash Lymphatic: no adenopathy Diagnostics - H&P Diagnostics Laboratory Results Results Past 24 Hours Test 11/08/16 16:14 Range/Units White Blood Count 8.07 4.8-10.8 K/uL Red Blood Count 4.65 4.7-6.1 M/uL Hemoglobin 14.1 14.0-18.0 g/dL Hematocrit 40.8 42-52 % Mean Corpuscular Volume 87.7 80-100 fL Mean Corpuscular Hemoglobin 30.3 25-34 pg Mean Corpuscular Hemoglobin Concent 34.6 32-36 g/dl Platelet Count 132 130-400 K/uL Mean Platelet Volume 10.8 7.4-10.4 fL Neutrophils (%) (Auto) 65.0 % Lymphocytes (%) (Auto) 19.8 % Monocytes (%) (Auto) 11.9 % Eosinophils (%) (Auto) 2.4 % Basophils (%) (Auto) 0.7 % Neutrophils # (Auto) 5.24 1.4-6.5 K/uL Lymphocytes # (Auto) 1.60 1.2-3.4 K/uL Monocytes # (Auto) 0.96 0.11-0.59 K/uL Eosinophils # (Auto) 0.19 0-0.5 K/uL Basophils # (Auto) 0.06 0-0.2 K/uL RDW Standard Deviation 54.0 36.4-46.3 fL RDW Coefficient of Variation 16.9 11.5-14.5 % Immature Granulocyte % (Auto) 0.2 % Immature Granulocyte # (Auto) 0.02 0.00-0.02 K/uL Sodium Level 142 136-145 mmol/L Potassium Level 4.6 3.5-5.1 mmol/L Chloride Level 107 98-107 mmol/L Carbon Dioxide Level 24 21-32 mmol/L Anion Gap 11.0 3-11 mmol/L Blood Urea Nitrogen 25 7-18 mg/dl Creatinine 1.70 0.60-1.40 mg/dl Est Creatinine Clear Calc Drug Dose 34.6 ml/min Estimated GFR () 43.8 Estimated GFR (Non- 37.8 BUN/Creatinine Ratio 14.5 10-20 Random Glucose 85 70-99 mg/dl Calcium Level 9.4 8.5-10.1 mg/dl Total Creatine Kinase 67 39-308 U/L Creatine Kinase MB 1.5 0.5-3.6 ng/ml Creatine Kinase MB Ratio 2.2 0-3.0 Troponin I < 0.015 0-0.045 ng/ml Diagnostic Radiology CXR Per radiologist read: IMPRESSION: Negative chest. EKG NSR 62 BPM, LAD, QTc 450 Impression - H&P Impression Assessment and Plan 76 year old male presents to the ED with chest pain that improved following nitro CHEST PAIN R/O ACS -Observation in tele -First set of CE negative in ED, EKG nonischemic -Risk factors:Known CAD s/p stent, HTN, HLD, h/o tobacco abuse, age -[facility] 08/04 with mild CAD -Serial Iavn and EKGs -Fasting lipid panel in AM -Echo pending to r/o heart wall abnormality -last echo with severe aortic stenosis -continue BB, Statin, Imdur -ASA daily -Nitro, morphine prn chest pain -Cardiology consult for further management input appreciated -AHA diet -CBC, PRP, Mg daily -VSS stable, monitor in tele GLENYS ON CKD STAGE 3 -crea 1.7 baseline 1.3 -BPs also soft ? dehydration -gentle IVF hydration -hold diuretic -repeat PRP in AM SEVERE AORTIC STENOSIS - per echo -lasix on hold for GLENYS -gentle IVF hydration -monitor volume status closely IDDM -BSG 85 -update A1c -SSI coverage -Pharmacy consulted for dosing - may need to decrease outpatient regimen prior to discharge -BSG AC HS -consistent carb diet IRON DEFICIENCY ANEMIA Hx of GI bleeds -hgb stable -continue Iron supplementation -follow H&H HTN -running slightly low secondary to nitro use or dehydration -gentle IVF hydration -hold Lasix, and losartan -continue BB with hold parameters -monitor in tele HLD -check lipid panel -continue Statin KLEIN CIRRHOSIS -continue Rifaximin, and Lactulose GERD -continue PPI BPH -continue Flomax DVT PROPHYLAXIS: Sq heparin CODE STATUS: FULL CODE DISPO:observation pending further workup Patient seen in collaboration with Dr. Prieto Agree with above H and P.[id number] presents with hx of Severe , KLEIN cirrhosis, Hx of anemia and G bleeds presents with chest pain. Patient was sitting and resting when he suddenly had chest pain 5/10 in severity and he took nitro which relived his pain and came to ER. currently chest pain free. Initially BP was on lower side. Denies any sob . Recently treated for URI and his cough is much better now. Afebrile. p/e Ge not in distress Cvs s1 and s2 heard no murmurs Rs cta b/l no wheezing no crackles Abd benign Shrimp Header non focal Ext no erythema. a/p Chest pain rule out ACS initial workup negative recent cardiac cath mild CAD Hx of cad s/p stent to continue b wesly, Imdur and statin started on aspirin echo cardiology consult Severe Lasix on hold for arf monitor for volume overload VTE Prophylaxis VTE Risk Assessment Done? Y/N: Yes Risk Level: Moderate Physical Exam (per Admitting): General Appearance: + pertinent finding (WD/WN 76 year old male lying in bed in NAD with family at bedside ) Head: normocephalic, atraumatic Eyes: PERRL, EOMI, sclerae normal ENT: hearing grossly normal, pharynx normal Neck: supple, no JVD Respiratory/Chest: chest non-tender, lungs clear, normal breath sounds, no respiratory distress, no accessory muscle use Cardiovascular: regular rate, rhythm, no edema, no gallop, no JVD, normal peripheral pulses, + systolic murmur (+3) Abdomen/GI: normal bowel sounds, non tender, soft Back: normal inspection, no muscle spasm Extremities/Musculoskelatal: no calf tenderness, normal capillary refill, no pedal edema Neurologic/Psych: alert, oriented x 3, + pertinent finding (no focal deficits noted on gross exam ) Skin: normal color, warm/dry, no rash Lymphatic: no adenopathy Hospital Course CHEST PAIN R/O ACS -Risk factors:Known CAD s/p stent, HTN, HLD, h/o tobacco abuse, age -[facility] 08/04 with mild CAD -Serial Ivan and EKGs-negative ,No ACS -Fasting lipid panel-noted -Echo:: * The left ventricular wall motion is normal. * Ejection Fraction = 60-65%. * The aortic valve is severely calcified. * The aortic valve is calcified to a moderate to severe degree. * Borderline severe aortic stenosis is present with peak transvalvular velocities of 3.8-4 m/s. * There is mild mitral regurgitation. * There is mild tricuspid regurgitation. * Mild to moderate pulmonary hypertension is present. * The pulmonary artery systolic pressure is calculated to be 49 mm Hg. -continue BB, Statin, Imdur and Aspirin -Nitro, morphine prn chest pain -Cardiology consult for further management input appreciated -increase ambulation -if remains asymptomatic-may be discharged Chronic diastolic (preserved EF) CHF monitored with daily weights and I/O's. Will restart Lasix on discharge SEVERE AORTIC STENOSIS -may be the cause of Chest pain -Lasix on hold for GLENYS -gentle IVF hydration -Repeat ECHO supportive fo -patient remains free of symptoms -Frequent OP follow up for Aortic Valve surgery down the line GLENYS ON CKD STAGE 3 -crea 1.7 baseline 1.3 -gentle IVF hydration -hold diuretic -creatinine at baseline IDDM -update A1c-8.7 High -SSI coverage -Pharmacy consulted for dosing - may need to decrease outpatient regimen prior to discharge IRON DEFICIENCY ANEMIA Hx of GI bleeds Hb Stable Continue Iron HTN -running slightly low secondary to nitro use or dehydration -gentle IVF hydration -hold Lasix, and losartan -continue BB with hold parameters -Blood pressure remains lower side -will restart Furosemide and hold Losartan for now HLD -check lipid panel-noted -continue Statin KLEIN CIRRHOSIS -continue Rifaximin, and Lactulose GERD -continue PPI BPH -continue Flomax -no symptoms DVT PROPHYLAXIS: Sq heparin CODE STATUS: FULL CODE DISPO: Likely discharge today if OK with cardiology Total time spent on discharge = This includes examination of the patient, discharge planning, medication reconciliation, and communication with other providers. Discharge Instructions Admission Reason for Admission: Substernal Precordial Chest Pain Discharge Discharge Diagnosis / Problem: Chest Pain-No ACS,Aortic Stenosis Discharge Goals Goal(s): Prevent Disease Progression Activity Recommendations Activity Limitations: resume your previous activity (As Tolerated) . Instructions / Follow-Up Instructions / Follow-Up Dr Leiva on 11/15/16 at 10:50 AM,Cardiology will call with appointment Current Hospital Diet Patient's current hospital diet: AHA Diet (Heart Healthy), Diabetes Type 2 Diet , Renal Diet Discharge Diet Recommended Diet: Diabetes Type 2 Diet Pending Studies Studies pending at discharge: no Laboratory Results Hemoglobin A1c Test 11/09/16 03:57 Range/Units Estimated Average Glucose 203 mg/dl Hemoglobin A1c 8.7 H 4.5-5.6 % Lipid Panel Test 11/09/16 03:57 Range/Units Triglycerides Level 137 0-150 mg/dl Cholesterol Level 142 0-200 mg/dl HDL Cholesterol 48 mg/dl Cholesterol/HDL Ratio 3.0 LDL Cholesterol, Calculated 67 mg/dl Medical Emergencies . Who to Call and When: Medical Emergencies: If at any time you feel your situation is an emergency, please call 911 immediately. . Non-Emergent Contact Non-Emergency issues call your: Primary Care Provider . . "Provider Documentation" section prepared by Precious Ragland. VTE Core Measure Inpt VTE Proph given/why not?: Unfractionated heparin SQ <Electronically signed by Precious Ragland M.D.> Additional Copies To Atiya Baltazar D.O.
[2016-11-11] MEDS ORDERED: FUROSEMIDE 40 MG TAB PO SCH (09:00)
[2016-11-11] MEDS ORDERED: POTASSIUM CHLORIDE 10 MEQ TABCR PO SCH (09:00)
[2016-11-11] MEDS ORDERED: LOSARTAN POTASSIUM 25 MG TAB PO SCH (09:00)
[2017-03-03] MEDS ORDERED: NTRGSL/4 UT (00:45)
[2017-03-03] MEDS ORDERED: RIFA550T2 PO (14:57)
[2017-03-03] MEDS ORDERED: MAGN400T6 PO (14:57)
[2017-03-03] MEDS ORDERED: EMPA1TAB PO (16:06)
[2017-03-03] MEDS ORDERED: FERR325T18 PO (16:06)
[2017-03-03] MEDS ORDERED: PRT/40 PO (18:58)
[2017-04-28] MEDS ORDERED: LCTL45 PO (15:54)
[2017-06-10] MEDS ORDERED: DXY100 PO (18:01)
[2017-06-10] MEDS ORDERED: DLCS PR (18:01)
[2017-06-10] MEDS ORDERED: ASPEC81 PO (18:01)
[2017-06-10] MEDS ORDERED: SENN8.6T7 PO (18:01)
== END 2016-11-10 15:40 | disposition home or self-care (01) ==
LOC: ENRESERVDT → ENRESERVTM → EDBD 16:38 → C.EDC 16:39 → C.EDINP 18:29 → INTOOBSV 11-09 09:41 → OBSVTOIN 11-09 09:41 → C.2T 11-09 10:46
PROVIDERS: ADMIT Internal Medicine; ATTEND Internal Medicine
DX: R07.9 Chest pain, unspecified (principal); I35.0 Nonrheumatic aortic (valve) stenosis; I25.10 Atherosclerotic heart disease of native coronary artery without angina pectoris; E78.5 Hyperlipidemia, unspecified; N18.3 Chronic kidney disease, stage 3 (moderate); E11.22 Type 2 diabetes mellitus with diabetic chronic kidney disease; I12.9 Hypertensive chronic kidney disease with stage 1 through stage 4 chronic kidney disease, or unspecified chronic kidney disease; K21.9 Gastro-esophageal reflux disease without esophagitis; Z98.890 Other specified postprocedural states; Z79.4 Long term (current) use of insulin; Z87.891 Personal history of nicotine dependence; Z82.49 Family history of ischemic heart disease and other diseases of the circulatory system

== ENCOUNTER 2016-12-30 13:48 | Observation (INO) | payer OTHER ==
[~2016-12-30] VITALS: Ht 157.5 cm; Wt 87.6 kg
[~2016-12-30 13:48] MED LIST changes: -ALBUAER2 INH; -ANT25 PO; -NVLGI SC; +NVLGIPEN SC; +PRVHFAIN INH; -SRVDIN60 INH
[2016-12-30] MEDS ORDERED: LACTULOSE SYRUP 20 GM/30 ML UDC PO STA (14:00)
--- NOTE | 2016-12-30 14:25 | DIAGNOSTIC IMAGING REPORT ---
CHEST ONE VIEW PORTABLE CLINICAL HISTORY: confusion dyspnea COMPARISON STUDY: 11/08/2016 FINDINGS: Mild stable cardiomegaly. Diaphragms are smooth. Lungs are clear. IMPRESSION: No acute process. Mild stable cardiomegaly. Electronically signed by: Hayden Gonzalez M.D. 12/30/2016 2:23 PM Dictated Date/Time: 12/30/2016 2:22 PM
[2016-12-30 14:48] LABS: MEAN CORPUSCULAR HEMOGLOBIN 32.1 pg (25-34); MEAN CORPUSCULAR HGB CONC 34.9 g/dl (32-36); RED BLOOD COUNT 4.24 M/uL (4.7-6.1); WHITE BLOOD COUNT 6.07 K/uL (4.8-10.8)
[2016-12-30 14:53] LABS: BASO % 0.8 %; BASO ABS # 0.05 K/uL (0-0.2); COMPLETE YES; LYMPH % 12.7 %; LYMPH ABS # 0.77 K/uL (1.2-3.4); MEAN PLATELET VOLUME 11.5 fL (7.4-10.4); MONO % 13.3 %; NEUT % 69.2 %; PLATELET COUNT 92 K/uL (130-400)
[2016-12-30 15:41] LABS: AST/SGOT 151 U/L (15-37); POTASSIUM 4.3 mmol/L (3.5-5.1)
[2016-12-30 15:43] LABS: ALKALINE PHOSPHATASE 418 U/L (45-117); ALT/SGPT 109 U/L (12-78); BLOOD UREA NITROGEN 11 mg/dl (7-18); BUN/CREATININE RATIO 8.3 (10-20); CALCIUM 8.8 mg/dl (8.5-10.1); CARBON DIOXIDE 29 mmol/L (21-32); CHLORIDE 104 mmol/L (98-107); GLUCOSE 338 mg/dl (70-99); MAGNESIUM 2.2 mg/dl (1.8-2.4); SODIUM 137 mmol/L (136-145)
[2016-12-30 15:54] LABS: BETA-HYDROXYBUTYRATE 1.48 mg/dL (0.2-2.81)
[2016-12-30] MEDS ORDERED: SODIUM CHLORIDE 0.9% 1000ML 1,000 ML IV STA (16:09)
[2016-12-30] MEDS ORDERED: SODIUM CHLORIDE 0.9% 250ML 250 ML IV STA (16:09)
[2016-12-30] MEDS ORDERED: NovoLIN-R INSULIN PER UNIT CHARGE IV STA (16:09)
[2016-12-30 16:22] LABS: INR 1.1 (0.9-1.1); PARTIAL THROMBOPLASTIN RATIO 1.1; PROTHROMBIN TIME (PATIENT) 11.9 SECONDS (9.0-12.0)
[2016-12-30] MEDS ORDERED: PHARMACY GLYCEMIC MGMT CONSULT SCH (16:43)
[2016-12-30] MEDS ORDERED: GLUCAGON FOR INJ 1 MG VIAL SQ PRN (16:45)
[2016-12-30] MEDS ORDERED: ONDANSETRON INJ 2 MG/ML 2 ML VIAL IV PRN (16:45)
[2016-12-30] MEDS ORDERED: GLUCOSE 40% GEL 15 GM TUBE PO PRN (16:45)
[2016-12-30] MEDS ORDERED: GLUCOSE 10 TABS/TUBE PO PRN (16:45)
[2016-12-30] MEDS ORDERED: ALBUTEROL HFA 8 GM INHALER INH PRN (16:45)
[2016-12-30] MEDS ORDERED: NITROGLYCERIN 0.4 MG SL PER TAB CHARGE UT PRN (16:45)
[2016-12-30] MEDS ORDERED: DEXTROSE 50% 50 ML SYR IV PRN (16:45)
[2016-12-30 16:53] LABS: URINE APPEARANCE CLEAR (CLEAR); URINE BILIRUBIN NEG (NEG); URINE COLOR YELLOW; URINE NITRITE NEG (NEG); URINE SPECIFIC GRAVITY 1.038 (1.000-1.030); UROBILINOGEN NEG (NEG); ZZUR CULT IF INDIC CLEAN CATCH NO
--- NOTE | 2016-12-30 17:11 | EMERGENCY ROOM VISIT NOTE ---
History First contact with patient: 13:55 Chief Complaint: ABNORMAL LABS Stated Complaint: LABWORK ISSUES-DOCTOR SENT TO ER History of Present Illness The patient is a 76 year old male who presents to the Emergency Room with complaints of increasing confusion for the past few days that is brought in by family who was sent over by the family care doctor's office for increasing ammonia. Patient states he's been nauseous and not taking his medicines for the past 3 days. No vomiting. Patient denies chest pain, dyspnea, fever, chills, cough, congestion, abdominal pain, vomiting, diarrhea, lightheadedness or dizziness. 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 Review of Systems See HPI for pertinent positives & negatives. A total of 10 systems reviewed and were otherwise negative. 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 (5) Diabetes mellitus type 2 in obese (6) Diverticulosis (7) Dyslipidemia (8) GERD (gastroesophageal reflux disease) (9) GI bleed (10) Hepatic encephalopathy (11) Hiatal hernia (12) HTN (hypertension) (13) Kidney stone (14) Noncompliance (15) Portal hypertensive gastropathy (16) Transaminitis Surgical Problems: (1) H/O hemorrhoidectomy (2) History of cardiac catheterization (3) History of colonoscopy (4) History of lumbar laminectomy Family History FHx: heart disease FATHER ( from [place] age 65) BROTHER ([place] in his 40s) Social History Smoking Status: Former Smoker Alcohol Use: none Housing Status: lives alone Occupation Status: retired Current/Historical Medications Scheduled Empagliflozin (Jardiance), 10 MG PO DAILY Ferrous Gluconate (Ferrous Gluconate), 1 TAB PO BID Furosemide (Furosemide), 40 MG PO DAILY Insulin Aspart (Novolog Flexpen), 38 SC UD Insulin Glargine (Lantus Solostar), 45 UNITS SC BID Isosorbide Mononitrate Ext Rel (Imdur Ext Rel), 30 MG PO QAM Lactulose (Chronulac), 30 ML PO TID Losartan Potassium (Losartan Potassium), 25 MG PO DAILY Magnesium Oxide (Mag-Ox), 400 MG PO BID Metoprolol Tartrate (Lopressor), 25 MG PO BID Pantoprazole (Pantoprazole Sodium), 40 MG PO BID Potassium Chloride Microencaps (Potassium Chloride Er), 20 MEQ PO DAILY Rifaximin (Xifaxan), 550 MG PO BID Rosuvastatin Calcium (Rosuvastatin Calcium), 40 MG PO DAILY Tamsulosin HCl (Tamsulosin HCl), 0.4 MG PO DAILY Scheduled PRN Albuterol (Ventolin Hfa), 2 PUFFS INH Q4H PRN for Shortness of Breath Hydroxyzine HCl (Hydroxyzine Pamoate), 25 MG PO HS PRN for Anxiety Nitroglycerin (Nitrostat), 0.4 MG UT UD PRN for Chest Pain Zolpidem Tartrate (Ambien), 10 MG PO HS PRN for Sleep Allergies Coded Allergies: PRASHANT Inhibitors (Verified Allergy, Severe, ANGIOEDEMA from 10/10/11 ED adm, 12/30/16) Simvastatin (Verified Allergy, Unknown, RASH, SORE ALL OVER. 2013: Uses Crestor, 12/30/16) Physical Exam Vital Signs Date Time Temp Pulse Resp B/P Pulse Ox O2 Delivery O2 Flow Rate FiO2 12/30/16 15:44 77 18 132/70 92 Room Air 12/30/16 14:53 72 12/30/16 14:05 96 Room Air 12/30/16 13:51 36.8 82 18 160/72 96 Room Air Physical Exam VITALS: Vitals are noted on the nurse's note and reviewed by myself. Vital signs stable. GENERAL: Pleasant male mildly confused, in no acute distress, nondiaphoretic, well-developed well-nourished. SKIN: The skin was without rashes, erythema, edema, or bruising. There is no tenting of the skin. Capillary reflex less than 2 seconds. HEAD: Normocephalic atraumatic. EARS: External auditory canals clear, tympanic membranes pearly olmstead without erythema or effusion bilaterally. EYES: Pupils equal round and reactive to light and accommodation. Conjunctivae without injection, sclerae without icterus. Extraocular movements intact. NOSE: Patent, turbinates without inflammation or discharge. MOUTH: Mucous membranes mildly dry. Pharynx without erythema or exudate. Uvula midline. Airway patent. Tongue does not deviate. NECK: Supple without nuchal rigidity. No lymphadenopathy. No thyromegaly. Cervical spine is nontender. No JVD. HEART: Regular rate and rhythm LUNGS: Clear to auscultation bilaterally without wheezes, rales or rhonchi. No dullness to percussion. No retractions or accessory muscle use. ABDOMEN: Positive bowel sounds x 4. Normal tympanic percussion. Soft, minimally tender to palpation right quadrant, no CVA tenderness, without masses or organomegaly. Powell sign negative. No guarding or rebound tenderness. MUSCULOSKELETAL: No muscle atrophy, erythema, or edema noted. NEURO: Patient was alert and oriented to person place and time. Normal sensation to light and sharp touch. No focal neurological deficits. Medical Decision & Procedures Laboratory Results 12/30/16 14:34 Red Blood Count 4.24, Mean Corpuscular Volume 92.0, Mean Corpuscular Hemoglobin 32.1, Mean Corpuscular Hemoglobin Concent 34.9, Mean Platelet Volume 11.5, Neutrophils (%) (Auto) 69.2, Lymphocytes (%) (Auto) 12.7, Monocytes (%) (Auto) 13.3, Eosinophils (%) (Auto) 4.0, Basophils (%) (Auto) 0.8, Neutrophils # (Auto ) 4.20, Lymphocytes # (Auto) 0.77, Monocytes # (Auto) 0.81, Eosinophils # (Auto ) 0.24, Basophils # (Auto) 0.05 12/30/16 14:34 Test 12/30/16 14:34 12/30/16 14:55 12/30/16 16:35 White Blood Count 6.07 K/uL (4.8-10.8) Red Blood Count 4.24 M/uL (4.7-6.1) Hemoglobin 13.6 g/dL (14.0-18.0) Hematocrit 39.0 % (42-52) Mean Corpuscular Volume 92.0 fL (80-100) Mean Corpuscular Hemoglobin 32.1 pg (25-34) Mean Corpuscular Hemoglobin Concent 34.9 g/dl (32-36) Platelet Count 92 K/uL (130-400) Mean Platelet Volume 11.5 fL (7.4-10.4) Neutrophils (%) (Auto) 69.2 % Lymphocytes (%) (Auto) 12.7 % Monocytes (%) (Auto) 13.3 % Eosinophils (%) (Auto) 4.0 % Basophils (%) (Auto) 0.8 % Neutrophils # (Auto) 4.20 K/uL (1.4-6.5) Lymphocytes # (Auto) 0.77 K/uL (1.2-3.4) Monocytes # (Auto) 0.81 K/uL (0.11-0.59) Eosinophils # (Auto) 0.24 K/uL (0-0.5) Basophils # (Auto) 0.05 K/uL (0-0.2) RDW Standard Deviation 53.5 fL (36.4-46.3) RDW Coefficient of Variation 15.9 % (11.5-14.5) Immature Granulocyte % (Auto) 0.0 % Immature Granulocyte # (Auto) 0.00 K/uL (0.00-0.02) Prothrombin Time 11.9 SECONDS (9.0-12.0) Prothromb Time International Ratio 1.1 (0.9-1.1) Activated Partial Thromboplast Time 28.6 SECONDS (21.0-31.0) Partial Thromboplastin Ratio 1.1 Anion Gap 4.0 mmol/L (3-11) Est Creatinine Clear Calc Drug Dose 44.9 ml/min Estimated GFR () 60.6 Estimated GFR (Non- 52.3 BUN/Creatinine Ratio 8.3 (10-20) Bedside Glucose 355 mg/dl (70-99) Calcium Level 8.8 mg/dl (8.5-10.1) Magnesium Level 2.2 mg/dl (1.8-2.4) Total Bilirubin 1.1 mg/dl (0.2-1) Direct Bilirubin 0.3 mg/dl (0-0.2) Aspartate Amino Transf (AST/SGOT) 151 U/L (15-37) Alanine Aminotransferase (ALT/SGPT) 109 U/L (12-78) Alkaline Phosphatase 418 U/L (45-117) Troponin I < 0.015 ng/ml (0-0.045) Total Protein 7.1 gm/dl (6.4-8.2) Albumin 3.0 gm/dl (3.4-5.0) Lipase 339 U/L (73-393) Beta-Hydroxybutyric Acid 1.48 mg/dL (0.2-2.81) Thyroid Stimulating Hormone (TSH) 3.000 uIu/ml (0.300-4.500) Ammonia 74.0 umol/L (11-32) Medications Administered Medications (Trade) Dose Ordered Sig/Suman Route Start Time Stop Time Status Last Admin Dose Admin Lactulose (Chronulac Syrup) 30 gm NOW STAT PO 12/30/16 14:00 12/30/16 14:05 DC 12/30/16 14:00 30 GM ED Course Prior records/ancillary studies reviewed and summarized above. Nursing notes reviewed. Additional history obtained from family. The patient's history was concerning for increased confusion. Differential diagnosis: Etiologies such as metabolic, infection, hypo/hyperglycemia, electrolyte abnormalities, cardiac sources, intracerebral event, toxicologic, neurologic, as well as others were entertained. Physical examination: As above. ER treatment provided: IV Lock IV fluids, lactulose On reassessment the patient felt better. Diagnostics interpretation by me: ECG: Normal sinus, normal intervals, no acute ST-T wave changes. Impression normal sinus rhythm interpreted by myself The labs revealed elevated LFTs and ammonia level. Normal coags Imaging studies: CHEST ONE VIEW PORTABLE CLINICAL HISTORY: confusion dyspnea COMPARISON STUDY: 11/08/2016 FINDINGS: Mild stable cardiomegaly. Diaphragms are smooth. Lungs are clear. IMPRESSION: No acute process. Mild stable cardiomegaly. Electronically signed by: Hayden Gonzalez M.D. 12/30/2016 2:23 PM Dictated Date/Time: 12/30/2016 2:22 PM Consultation: A consultation was placed with the hospitalist, ANTONIETA Whitley. The case was discussed and diagnostics were reviewed. The patient was evaluated in the ER for further treatment. Exam and history seem consistent with hepatic encephalopathy. Patient has not been able to take his lactulose due to his nausea. Patient lives alone. He will be evaluated by medicine for possible admission. Patient did have elevation in his LFTs and some mild tenderness on clinical exam of his abdomen so ultrasound was ordered. This is pending at time of admission.By the evaluation outlined above emergent etiologies such as infection, cardiac sources, intracerebral event, toxologic, abnormalities blood glucose, metabolic , as well as others were deemed relatively unlikely. The pt informed about the findings as listed above. All questions were answered and pleased with the treatment. Case reviewed with my attending Medical Decision As above Impression Primary Impression: Hepatic encephalopathy Departure Information Dispostion Being Evaluated By Hospitalist Condition FAIR Referrals Atiya Baltazar D.O. (PCP) Patient Instructions My [facility]
--- NOTE | 2016-12-30 17:12 | History and Physical ---
History & Physical Date & Time of Service: Dec 30, 2016 at 16:42 Chief Complaint: Labwork Issues-Doctor Sent To Er Primary Care Physician: Atiya Baltazar D.O. History of Present Illness Source: patient, caregiver, clinic records, hospital records Patient seen and examined. 76 year old male with PMHx of KLEIN cirrhosis, IDDM, CAD s/p stent, CKd stage 3, Severe , BPH, GERD, and CLAUDIO presents to the ED at the request of his PCP for abnormal lab work. Patient has had some nausea for the last several days. He reports when he gets nauseated he does not take any of his medications. He saw his PCP yesterday who thought the patient seemed more confused than normal and moving and speaking slower. She ordered blood work which showed an Ammonia level of 106 and glucose >300. She referred him to the ED for further evaluation. Patient reports currently he feels well. He denies fevers, chills, URI symptoms, chest pain, SOB, nausea, vomiting, diarrhea , dysuria, calf pain and edema. He reports urinary frequency. In the ED VS are stable, Ammonia level is 74, BSG is 355. He received Lactulose and Insulin. He is resting comfortably. He will be admitted for further workup and treatment. 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 (5) Diabetes mellitus type 2 in obese Status: Chronic (6) Diverticulosis Status: Chronic (7) Dyslipidemia Status: Chronic (8) GERD (gastroesophageal reflux disease) Status: Chronic (9) GI bleed Status: Chronic (10) Hiatal hernia Status: Chronic (11) HTN (hypertension) Status: Chronic (12) Kidney stone Status: Resolved (13) Portal hypertensive gastropathy Status: Chronic (14) Transaminitis Status: Chronic Surgical Problems: (1) H/O hemorrhoidectomy Status: Resolved (2) History of cardiac catheterization Status: Resolved (3) History of colonoscopy Status: Resolved (4) History of lumbar laminectomy Status: Resolved Family History FHx: heart disease FATHER ( from [place] age 65) BROTHER (CAB[place] in his 40s) Social History Smoking Status: Former Smoker Alcohol Use: none Housing status: lives alone Occupational Status: retired Immunizations History of Influenza Vaccine: Yes Influenza Vaccine Date: Jun 08, 2016 History of Tetanus Vaccine?: Yes Tetanus Immunization Date: Nov 30, 2007 History of Pneumococcal: Yes Pneumococcal Date: Mar 19, 2015 Allergies Coded Allergies: PRASHANT Inhibitors (Verified Allergy, Severe, ANGIOEDEMA from 10/10/11 ED adm, 12/30/16) Simvastatin (Verified Allergy, Unknown, RASH, SORE ALL OVER. 2013: Uses Crestor, 12/30/16) Home Medications Scheduled Empagliflozin (Jardiance), 10 MG PO DAILY Ferrous Gluconate (Ferrous Gluconate), 1 TAB PO BID Furosemide (Furosemide), 40 MG PO DAILY Insulin Aspart (Novolog Flexpen), 38 SC UD Insulin Glargine (Lantus Solostar), 45 UNITS SC BID Isosorbide Mononitrate Ext Rel (Imdur Ext Rel), 30 MG PO QAM Lactulose (Chronulac), 30 ML PO TID Losartan Potassium (Losartan Potassium), 25 MG PO DAILY Magnesium Oxide (Mag-Ox), 400 MG PO BID Metoprolol Tartrate (Lopressor), 25 MG PO BID Pantoprazole (Pantoprazole Sodium), 40 MG PO BID Potassium Chloride Microencaps (Potassium Chloride Er), 20 MEQ PO DAILY Rifaximin (Xifaxan), 550 MG PO BID Rosuvastatin Calcium (Rosuvastatin Calcium), 40 MG PO DAILY Tamsulosin HCl (Tamsulosin HCl), 0.4 MG PO DAILY Scheduled PRN Albuterol (Ventolin Hfa), 2 PUFFS INH Q4H PRN for Shortness of Breath Hydroxyzine HCl (Hydroxyzine Pamoate), 25 MG PO HS PRN for Anxiety Nitroglycerin (Nitrostat), 0.4 MG UT UD PRN for Chest Pain Zolpidem Tartrate (Ambien), 10 MG PO HS PRN for Sleep Review of Systems See above for pertinent positives & negatives. A total of 10 systems reviewed and were otherwise negative. Physical Exam Vital Signs Date Time Temp Pulse Resp B/P Pulse Ox O2 Delivery O2 Flow Rate FiO2 12/30/16 15:44 77 18 132/70 92 Room Air 12/30/16 14:53 72 12/30/16 14:05 96 Room Air 12/30/16 13:51 36.8 82 18 160/72 96 Room Air General Appearance: + pertinent finding (WD/WN 76 year old male sitting at the edge of bed in NAD with family at bedside) Head: normocephalic, atraumatic Eyes: PERRL, EOMI, sclerae normal ENT: hearing grossly normal, pharynx normal Neck: supple, no JVD Respiratory/Chest: chest non-tender, lungs clear, normal breath sounds, no respiratory distress, no accessory muscle use Cardiovascular: regular rate, rhythm, no edema, no gallop, no JVD, normal peripheral pulses, + systolic murmur Abdomen/GI: normal bowel sounds, non tender, soft, + distended Back: normal inspection, no muscle spasm Extremities/Musculoskelatal: no calf tenderness, normal capillary refill, no pedal edema Neurologic/Psych: alert, oriented x 3, + pertinent finding (speaking slowly otherwise no deficits noted ) Skin: normal color, warm/dry, no rash Lymphatic: no adenopathy Diagnostics Laboratory Results Results Past 24 Hours Test 12/30/16 14:34 12/30/16 14:55 12/30/16 16:35 Range/Units White Blood Count 6.07 4.8-10.8 K/uL Red Blood Count 4.24 4.7-6.1 M/uL Hemoglobin 13.6 14.0-18.0 g/dL Hematocrit 39.0 42-52 % Mean Corpuscular Volume 92.0 80-100 fL Mean Corpuscular Hemoglobin 32.1 25-34 pg Mean Corpuscular Hemoglobin Concent 34.9 32-36 g/dl Platelet Count 92 130-400 K/uL Mean Platelet Volume 11.5 7.4-10.4 fL Neutrophils (%) (Auto) 69.2 % Lymphocytes (%) (Auto) 12.7 % Monocytes (%) (Auto) 13.3 % Eosinophils (%) (Auto) 4.0 % Basophils (%) (Auto) 0.8 % Neutrophils # (Auto) 4.20 1.4-6.5 K/uL Lymphocytes # (Auto) 0.77 1.2-3.4 K/uL Monocytes # (Auto) 0.81 0.11-0.59 K/uL Eosinophils # (Auto) 0.24 0-0.5 K/uL Basophils # (Auto) 0.05 0-0.2 K/uL RDW Standard Deviation 53.5 36.4-46.3 fL RDW Coefficient of Variation 15.9 11.5-14.5 % Immature Granulocyte % (Auto) 0.0 % Immature Granulocyte # (Auto) 0.00 0.00-0.02 K/uL Prothrombin Time 11.9 9.0-12.0 SECONDS Prothromb Time International Ratio 1.1 0.9-1.1 Activated Partial Thromboplast Time 28.6 21.0-31.0 SECONDS Partial Thromboplastin Ratio 1.1 Sodium Level 137 136-145 mmol/L Potassium Level 4.3 3.5-5.1 mmol/L Chloride Level 104 98-107 mmol/L Carbon Dioxide Level 29 21-32 mmol/L Anion Gap 4.0 3-11 mmol/L Blood Urea Nitrogen 11 7-18 mg/dl Creatinine 1.30 0.60-1.40 mg/dl Est Creatinine Clear Calc Drug Dose 44.9 ml/min Estimated GFR () 60.6 Estimated GFR (Non- 52.3 BUN/Creatinine Ratio 8.3 10-20 Bedside Glucose 355 70-99 mg/dl Random Glucose 338 70-99 mg/dl Calcium Level 8.8 8.5-10.1 mg/dl Magnesium Level 2.2 1.8-2.4 mg/dl Total Bilirubin 1.1 0.2-1 mg/dl Direct Bilirubin 0.3 0-0.2 mg/dl Aspartate Amino Transf (AST/SGOT) 151 15-37 U/L Alanine Aminotransferase (ALT/SGPT) 109 12-78 U/L Alkaline Phosphatase 418 45-117 U/L Troponin I < 0.015 0-0.045 ng/ml Total Protein 7.1 6.4-8.2 gm/dl Albumin 3.0 3.4-5.0 gm/dl Lipase 339 73-393 U/L Beta-Hydroxybutyric Acid 1.48 0.2-2.81 mg/dL Thyroid Stimulating Hormone (TSH) 3.000 0.300-4.500 uIu/ml Ammonia 74.0 11-32 umol/L Diagnostic Radiology CXR Per radiologist read: IMPRESSION: No acute process. Mild stable cardiomegaly. EKG NSR 78 BPM, LAD, Qtc 467 Impression Assessment and Plan 76 year old male presents to the ED for abnormal ammonia level. He has been nauseated this week and therefore has not taken any of his medications in several days. States he is no longer nauseated HEPATIC ENCEPHALOPATHY SECONDARY TO MEDICATION NONCOMPLIANCE H/O KLEIN CIRRHOSIS -Admit to med/surg -Ammonia level 106 yesterday, 74 today -Resume lactulose, Rifaximin, Lasix -No signs of SBP, afebrile, no leukocytosis -Mild transaminitis -Repeat LFTs, Ammonia level in AM -Follows with Dr. Garcia as outpatient URINARY FREQUENCY -in setting of BPH -check UA -continue Flomax IDDM WITH HYPERGLYCEMIA -Secondary to noncompliance, BSG 355, no signs of DKA -Received 10 units IV insulin -A1c yesterday 7.5 -Lantus at 35 units BID -SSI coverage -Pharmacy consulted for glycemic control -BSG AC HS -consistent carb diet HLD -continue statin CAD S/P STENT, AORTIC STENOSIS -Stable, no complaints -continue BB, Statin, Imdur, ARB, CLAUDIO -Hgb stable -continue Iron supplementation BPH -continue Flomax GERD -continue PPI CKD STAGE 3 -Crea 1.3 which is baseline -avoid nephrotoxic agents as able DVT PROPHYLAXIS: Sq Lovenox CODE STATUS: FULL CODE DISPO:In my clinical judgment this beneficiary meets acute admission criteria, established by [facility], that includes being hospitalized through two midnights. Patient seen in collaboration with Dr. Xiao ADDENDUM: This is a 76 year old male with PMH of KLEIN cirrhosis, CAD s/p stenting, insulin dependent DM2, severe , CKD stage 3 presents to the ER after being sent by PCP due to elevated ammonia and sugar levels. Patient states that he was feeling sick and nauseous so he stopped taking his medications as outpatient. KLEIN Liver Cirrhosis with Hepatic Encephalopathy plan is to continue lactulose dose at home dose unfortunately, patient has been noncompliant no need to trend ammonia level monitor for BMs continue home medications: Rifaximin, Lasix, Lactulose Low Na diet RUQ U/S pending f/u with GI and PCP as outpatient Uncontrolled blood sugars Insulin Dependent DM2 patient has not been using insulin as prescribed at home due to nausea the past few days His Ha1c = 7.5%, so usually well controlled we'll do Lantus 35 units BID and sliding scale titrate up to his home dose if sugars are still elevated pharmacy glycemic control consult placed VTE Prophylaxis VTE Risk Assessment Done? Y/N: Yes Risk Level: Moderate
[2016-12-30 17:14] LABS: MANUAL MICROSCOPIC REQUIRED? NO; REVIEW REQ? NO
--- NOTE | 2016-12-30 18:04 | EMERGENCY ROOM VISIT NOTE ---
ED Visit Note First contact with patient: 13:55 I have personally evaluated this patient examined her and reviewed the pertinent labs and data. I have discussed the case with Brina Rogers, the physician marketing communications assistant and agree with the plan. Please refer to the PA note This patient was sent over by his primary care doctor after outpatient labs showed elevated ammonia.He does have a history of cirrhosis. He's been having some mild encephalopathic changes. His LFTs are elevated his blood sugars also given elevated. He denies any fall or trauma. On my exam, he is resting comfortably without any complaints. He will be admitted.
[2016-12-30] MEDS ORDERED: IV FLUIDS COMPLETED PRN (19:15)
[2016-12-30 19:17] VITALS: BP 148/90; PULSE 74; TEMP 36.8; Ht 157.5 cm; Wt 87.6 kg
--- NOTE | 2016-12-30 19:46 | Pharmacy Progress Note ---
Glycemic Control Intl Consult Date of Service Dec 30, 2016. Scope Glycemic Pharmacist consulted by JOSEPH Cantu on 12/30/16 for glycemic control and to write orders per [facility] inpatient glycemic control protocol Objective Weight (Kilograms): 87.600 Accuchecks BSG (last 24hrs): Test 12/30/16 14:34 12/30/16 17:59 Bedside Glucose 355 mg/dl (70-99) 269 mg/dl (70-99) Random Glucose 338 mg/dl (70-99) Laboratory Data (last 24hrs) Test 12/30/16 14:34 Anion Gap 4.0 mmol/L BUN/Creatinine Ratio 8.3 Blood Urea Nitrogen 11 mg/dl Creatinine 1.30 mg/dl Potassium Level 4.3 mmol/L Sodium Level 137 mmol/L White Blood Count 6.07 K/uL Red Blood Count 4.24 M/uL Hemoglobin 13.6 g/dL Hematocrit 39.0 % Mean Corpuscular Volume 92.0 fL Mean Corpuscular Hemoglobin 32.1 pg Mean Corpuscular Hemoglobin Concent 34.9 g/dl Platelet Count 92 K/uL Mean Platelet Volume 11.5 fL Neutrophils (%) (Auto) 69.2 % Lymphocytes (%) (Auto) 12.7 % Monocytes (%) (Auto) 13.3 % Eosinophils (%) (Auto) 4.0 % Basophils (%) (Auto) 0.8 % Neutrophils # (Auto) 4.20 K/uL Lymphocytes # (Auto) 0.77 K/uL Monocytes # (Auto) 0.81 K/uL Eosinophils # (Auto) 0.24 K/uL Basophils # (Auto) 0.05 K/uL HbA1c per H&P, HgbA1c on 12/28/16 was 7.5%. Recent Pertinent Medications Outpatient Anti-diabetic Regimen: * Lantus 35 or 40 units bid, Novolog 38 or 40 units ac, Empagliflozin 10 mg po daily- patient is known to be noncompliant at times * A1c = 7.5 % 12/28/16 (per [facility] record) The patient is currently receiving: * Basal insulin: Lantus 35 units every 12 hours * Correctional Insulin: Novolog Correction per scale ACHS Goal Range: Low 140 mg/dL - High 180 mg/dL Correction Factor: 30 mg/dL/unit * Prandial insulin: Per carb ratio of 1 unit per 15 grams CHO consumed * Oral Agents: no Risk Factors for Insulin Resistance: * Steroids: no * Infection: no * Pressors: no * IVF: NS @ 125 ml/hr * Recent Surgery: no * Diet: type 1 diabetic AHA low sodium * Mechanical Ventilation: no Assessment & Plan ASSESSMENT: * ADA & AACE recommend a goal blood sugar range 140-180 mg/dl for the majority of critically ill & non-critically ill patients. However, more stringent targets may be selected in individual cases. * 76 yo type 2 diabetic, known to our service from previous admissions. Now admitted with hyperglycemia, no acidosis. Received regular insulin 10 units IV in the ED and BSG is trending down. He has usually required much less insulin in the hospital than at home, and BSG's run both high and low. We will start with a regimen similar to his last admission, and reassess in am. PLAN FOR INPATIENT GLYCEMIC CONTROL: * Holding outpatient oral diabetes medications * Basal insulin with LANTUS SQ BID per protocol If BSG is over 180 mg/dl, give 20 units If BSG is 111-180, give 10 units If BSG is less than 110, hold dose * Correctional Insulin with NOVOLOG per scale ACHS or Q6hrs while NPO * Goal Range: Low 140 mg/dL - High 180 mg/dL * Correction Factor: 25 mg/dL/unit * Nutritional / Prandial insulin per carb ratio of 1 unit per 9 grams CHO consumed Recommend changing diet to type 2 diabetic (AHA, low sodium) * Please note that the plan above was derived based on current level of insulin resistance and hospital stress. These recommendations are appropriate for inpatient admission only. Plan of care upon discharge will need to be reassessed to avoid potential outpatient hypo/hyperglycemia. Thank you.
[2016-12-30] MEDS: PANTOprazole SOD 40 MG TAB PO SCH (20:00)
[2016-12-30] MEDS: FERROUS GLUCONATE 324 MG TAB PO SCH (20:00)
[2016-12-30] MEDS: LACTULOSE SYRUP 30 GM/45 ML UDP PO SCH (20:00)
[2016-12-30] MEDS: METOPROLOL TARTRATE 25 MG TAB PO SCH (20:00)
[2016-12-30] MEDS: RIFAXIMIN TAB 550 MG TAB PO SCH (20:00)
[2016-12-30] MEDS: MAGNESIUM OXIDE 400 MG TAB PO SCH (20:00)
[2016-12-30] MEDS: INSULIN GLARGINE SOLOSTAR 100 UNITS/ML 3 ML PEN SC SCH (20:10)
--- NOTE | 2016-12-30 20:48 | DIAGNOSTIC IMAGING REPORT ---
ABDOMINAL ULTRASOUND, RIGHT UPPER QUADRANT HISTORY: Right upper quadrant abdominal pain. COMPARISON: Abdominal ultrasound June 01, [address] of the abdomen and pelvis February 13, 2016. FINDINGS: Coarsening of hepatic echotexture and nodularity of the liver surface are indicative of cirrhosis. No hepatic lesions are identified by sonography. There is no biliary ductal dilatation. The pancreas is obscured by overlying bowel gas. Gallstones are noted within the gallbladder. There is no gallbladder wall thickening or pericholecystic fluid. There is no right hydronephrosis. IMPRESSION: 1. Cirrhosis. 2. Cholelithiasis. No gallbladder wall thickening. 3. Partially obscured pancreas. Electronically signed by: Vikash Smith M.D. 12/30/2016 8:46 PM Dictated Date/Time: 12/30/2016 8:45 PM
[2016-12-30] MEDS ORDERED: ENOXAPARIN 40 MG/0.4 ML SYR SQ SCH (21:00)
[2016-12-30] MEDS ORDERED: INSULIN GLARGINE SOLOSTAR 100 UNITS/ML 3 ML PEN SC SCH (21:00)
[2016-12-30] MEDS ORDERED: LACTULOSE SYRUP 20 GM/30 ML UDC PO SCH (21:00)
[2016-12-30] MEDS: INSULIN ASPART 100 UNITS/ML 3 ML PEN SC SCH (21:36)
[2016-12-30 23:24] VITALS: BP 132/54; PULSE 65; TEMP 36.9; O2SAT 94
[2016-12-31] MEDS ORDERED: INSULIN ASPART 100 UNITS/ML 3 ML PEN SC SCH (02:00)
[2016-12-31 05:50] LABS: HEMATOCRIT 39.6 % (42-52); MEAN CORPUSCULAR HEMOGLOBIN 31.7 pg (25-34); MEAN CORPUSCULAR HGB CONC 34.1 g/dl (32-36); RED BLOOD COUNT 4.26 M/uL (4.7-6.1); WHITE BLOOD COUNT 6.34 K/uL (4.8-10.8)
[2016-12-31 05:51] LABS: MEAN PLATELET VOLUME 11.8 fL (7.4-10.4); PLATELET COUNT 94 K/uL (130-400)
[2016-12-31 06:25] LABS: BUN/CREATININE RATIO 10.7 (10-20); CALCIUM 8.8 mg/dl (8.5-10.1); CREATININE 1.2 mg/dl (0.60-1.40); MAGNESIUM 2.2 mg/dl (1.8-2.4); POTASSIUM 4.2 mmol/L (3.5-5.1)
[2016-12-31 06:29] LABS: ALB/GLOB RATIO 0.8 (0.9-2)
[2016-12-31 07:46] VITALS: BP 128/63; PULSE 72; TEMP 36.7; O2SAT 92
[2016-12-31] MEDS: INSULIN ASPART 100 UNITS/ML 3 ML PEN SC SCH ×4 (08:40→20:30)
[2016-12-31] MEDS: INSULIN GLARGINE SOLOSTAR 100 UNITS/ML 3 ML PEN SC SCH ×2 (08:42→20:31)
[2016-12-31] MEDS: LACTULOSE SYRUP 30 GM/45 ML UDP PO SCH ×3 (08:49→20:32)
[2016-12-31] MEDS: LOSARTAN POTASSIUM 25 MG TAB PO SCH (08:50)
[2016-12-31] MEDS: FERROUS GLUCONATE 324 MG TAB PO SCH ×2 (08:51→20:33)
[2016-12-31] MEDS: TAMSULOSIN HCL 0.4 MG CAP PO SCH (08:51)
[2016-12-31] MEDS: ROSUVASTATIN CALCIUM 20 MG TAB PO SCH (08:51)
[2016-12-31] MEDS: ISOSORBIDE MONONITRATE 30 MG TABCR PO SCH (08:53)
[2016-12-31] MEDS: POTASSIUM CHLORIDE 10 MEQ TABCR PO SCH (08:54)
[2016-12-31] MEDS: MAGNESIUM OXIDE 400 MG TAB PO SCH ×2 (08:55→20:32)
[2016-12-31] MEDS: FUROSEMIDE 40 MG TAB PO SCH (08:55)
[2016-12-31] MEDS: METOPROLOL TARTRATE 25 MG TAB PO SCH ×2 (08:55→20:33)
[2016-12-31] MEDS: PANTOprazole SOD 40 MG TAB PO SCH ×2 (08:56→20:34)
[2016-12-31] MEDS: RIFAXIMIN TAB 550 MG TAB PO SCH ×2 (08:56→20:34)
--- NOTE | 2016-12-31 12:54 | Pharmacy Progress Note ---
Glycemic Control: Progress Nt Date of Service Dec 31, 2016. Scope Glycemic Pharmacist consulted by Yanna RUIZ on 12/30/16 for glycemic control and to write orders per [facility] inpatient glycemic control protocol. Objective Accuchecks BSG (last 24hrs): Test 12/30/16 14:34 12/30/16 17:59 12/30/16 19:55 12/31/16 02:05 Bedside Glucose 355 mg/dl (70-99) 269 mg/dl (70-99) 222 mg/dl (70-99) 187 mg/dl (70-99) Random Glucose 338 mg/dl (70-99) Test 12/31/16 05:25 12/31/16 07:56 12/31/16 11:29 Random Glucose 141 mg/dl (70-99) Bedside Glucose 127 mg/dl (70-99) 266 mg/dl (70-99) Laboratory Data (last 24hrs) Test 12/30/16 14:34 12/31/16 05:25 Anion Gap 4.0 mmol/L 5.0 mmol/L BUN/Creatinine Ratio 8.3 10.7 Blood Urea Nitrogen 11 mg/dl 13 mg/dl Creatinine 1.30 mg/dl 1.20 mg/dl Potassium Level 4.3 mmol/L 4.2 mmol/L Sodium Level 137 mmol/L 141 mmol/L White Blood Count 6.07 K/uL 6.34 K/uL Red Blood Count 4.24 M/uL Hemoglobin 13.6 g/dL Hematocrit 39.0 % Mean Corpuscular Volume 92.0 fL Mean Corpuscular Hemoglobin 32.1 pg Mean Corpuscular Hemoglobin Concent 34.9 g/dl Platelet Count 92 K/uL Mean Platelet Volume 11.5 fL Neutrophils (%) (Auto) 69.2 % Lymphocytes (%) (Auto) 12.7 % Monocytes (%) (Auto) 13.3 % Eosinophils (%) (Auto) 4.0 % Basophils (%) (Auto) 0.8 % Neutrophils # (Auto) 4.20 K/uL Lymphocytes # (Auto) 0.77 K/uL Monocytes # (Auto) 0.81 K/uL Eosinophils # (Auto) 0.24 K/uL Basophils # (Auto) 0.05 K/uL Recent Pertinent Medications Outpatient Anti-diabetic Regimen: * Lantus 35 or 40 units bid * Novolog 38 or 40 units ac * Empagliflozin 10 mg po daily * patient is known to be noncompliant at times * [facility] 7[facility]5 [facility] The patient is currently receiving: * Basal insulin: Lantus SQ BID: 0 units if BSG less than 110; 10 units if BSG 110-180; 20 units if BSG above 180 * Correctional Insulin: Novolog Correction per scale ACHS Goal Range: Low 140 mg/dL - High 180 mg/dL Correction Factor: 25 mg/dL/unit * Prandial insulin: Per carb ratio of 1 unit per 9 grams CHO consumed * Oral Agents: None currently Risk Factors for Insulin Resistance: * Steroids: n/a * Infection: n/a * Pressors: n/a * IVF: n/a * Recent Surgery: n/a * Diet: ordered T1DM / AHA / Low Na+ diet; he did tolerate breakfast this AM * Mechanical Ventilation: n/a Assessment & Plan ASSESSMENT: 12/31/16 * Type 2 diabetic known to glycemic service from prior hospitalizations * He was started on a reduced dose basal/bolus regimen last evening based upon prior hospitalization data. He has highly variable insulin requirements, but tends to require 40-90 units/day when tolerating a diet. * This AM his fasting BSG is down to 127 after receiving 20 units of Lantus and 3 units of correctional insulin * The current Lantus scale seems appropriate for another 24 hours, at most he would receive ~50% of his outpt dose. Would ultimately like to covert to a set dose when his insulin requirements this admission are more clear * Post-prandial hyperglycemia observed pre-lunch today, and based upon prior admits he may require a larger prandial dose; will adjust CR and CF * Given uncertainty with this insulin requirements, basal requirement in particular, will add a 0200 BSG check w/ coverage to assist w/ control should the current orders be inadequate PLAN FOR INPATIENT GLYCEMIC CONTROL: * Continuing Lantus BID; 0 units if BSG less than 110; 10 units if BSG 110-180; 20 units if BSG above 180 * Changing correction factor to 20 mg/dl/unit * Changing carb ratio to 1 unit per 6 grams CHO consumed * Changing goal range to Low 120 mg/dL - High 150 mg/dL * Please note that the plan above was derived based on current level of insulin resistance and hospital stress. These recommendations are appropriate for inpatient admission only. Plan of care upon discharge will need to be reassessed to avoid potential outpatient hypo/hyperglycemia. Thank you.
[2016-12-31 15:41] VITALS: BP 100/57; PULSE 71; TEMP 36.5; O2SAT 95
[2016-12-31 16:01] VITALS: BP 80/38
[2016-12-31 17:00] VITALS: BP 97/55; PULSE 67; O2SAT 95
[2016-12-31 18:49] VITALS: BP 142/67; PULSE 72; O2SAT 95
[2016-12-31 23:52] VITALS: BP 122/61; PULSE 64; TEMP 36.6; O2SAT 94
[2017-01-01] VITALS: O2SAT 94
[2017-01-01] MEDS ORDERED: INSULIN ASPART 100 UNITS/ML 3 ML PEN SC ONE (02:00)
--- NOTE | 2017-01-01 07:38 | Progress Note ---
Internal Med Progress Note Date of Service: Dec 31, 2016. Provider Documentation: late entry pt seen on 12/31/16 SUBJECTIVE: continues to feel well , nausea has improved, no abdominal pain was found to be hypotensive earlier SBP in low 80's no symptom to dizzy spell or lightheadedness no confusion ambulating independently no fever or chills OBJECTIVE: Vital Signs-as noted below Exam: General-no sign of distress, Lungs-CTA , no wheeze or rales Heart-regular S1/.S2 Abdomen-soft non tender ,no ascites noted Extremities-no lower ext edema , no calf tenderness Neuro-AAO x3, no confusion , no focal deficit Lab data as noted below. ASSESSMENT & PLAN: H/O KLEIN CIRRHOSIS HEPATIC ENCEPHALOPATHY SECONDARY TO MEDICATION NONCOMPLIANCE -mental status improves to baseline pt admits of skipping dose of Lactulose -Resume lactulose, Rifaximin, Lasix -No signs of SBP, afebrile, no leukocytosis -Mild transaminitis ordered for LFTs, Ammonia level in AM -pt will continue to follow up with [facility] Dr Henderson as out patient HYPOTENSION pt reports of low BP at baseline due to Chronic liver disease worsening of Hypotension possible due to mild dehydration encouraged to take more PO fluid monitor IDDM TYPE 2 WITH HYPERGLYCEMIA presented with hyperglycemia BSG > 355, no signs of DKA -Received 10 units IV insulin -A1c 7.5 ( shows baseline well control ) -Lantus at 35 units BID -SSI coverage -Pharmacy consulted for glycemic control -appreciate input -BSG AC HS HLD -continue statin CAD S/P STENT, AORTIC STENOSIS -Stable, no complaints -continue BB, Statin, Imdur, ARB, CLAUDIO -Hgb stable -continue Iron supplementation BPH -continue Flomax GERD -continue PPI CKD STAGE 3 -Crea 1.3 which is baseline -avoid nephrotoxic agents as able CODE STATUS: FULL CODE DVT PROPHYLAXIS SCD and TEDs no pharmacological anticoagulation due to thrombocytopenia DISPOSITION Discharge home when medically stable Vital Signs: Date Time Temp Pulse Resp B/P Pulse Ox O2 Delivery O2 Flow Rate FiO2 01/01/17 07:52 36.6 58 18 147/94 96 Room Air 01/01/17 00:00 94 Room Air 12/31/16 23:52 36.6 64 18 122/61 94 Room Air 12/31/16 18:49 72 142/67 95 12/31/16 17:00 67 97/55 95 12/31/16 16:01 80/38 12/31/16 15:41 36.5 71 20 100/57 95 Room Air 12/31/16 15:40 Room Air Lab Results: Results Past 24 Hours Test 12/31/16 11:29 12/31/16 16:37 12/31/16 20:13 01/01/17 02:04 Range/Units Bedside Glucose 266 332 382 175 70-99 mg/dl Test 01/01/17 06:16 01/01/17 08:06 Range/Units Total Bilirubin 0.8 0.2-1 mg/dl Direct Bilirubin 0.3 0-0.2 mg/dl Aspartate Amino Transf (AST/SGOT) 141 15-37 U/L Alanine Aminotransferase (ALT/SGPT) 98 12-78 U/L Alkaline Phosphatase 256 45-117 U/L Ammonia 130.0 11-32 umol/L Total Protein 6.4 6.4-8.2 gm/dl Albumin 2.8 3.4-5.0 gm/dl Bedside Glucose 170 70-99 mg/dl
[2017-01-01] MEDS: LACTULOSE SYRUP 30 GM/45 ML UDP PO SCH (07:42)
[2017-01-01] MEDS: LOSARTAN POTASSIUM 25 MG TAB PO SCH (07:42)
[2017-01-01] MEDS: ISOSORBIDE MONONITRATE 30 MG TABCR PO SCH (07:43)
[2017-01-01] MEDS: POTASSIUM CHLORIDE 10 MEQ TABCR PO SCH (07:43)
[2017-01-01] MEDS: ROSUVASTATIN CALCIUM 20 MG TAB PO SCH (07:43)
[2017-01-01] MEDS: TAMSULOSIN HCL 0.4 MG CAP PO SCH (07:43)
[2017-01-01] MEDS: FUROSEMIDE 40 MG TAB PO SCH (07:43)
[2017-01-01] MEDS: METOPROLOL TARTRATE 25 MG TAB PO SCH (07:43)
[2017-01-01] MEDS: FERROUS GLUCONATE 324 MG TAB PO SCH (07:44)
[2017-01-01] MEDS: PANTOprazole SOD 40 MG TAB PO SCH (07:44)
[2017-01-01] MEDS: RIFAXIMIN TAB 550 MG TAB PO SCH (07:44)
[2017-01-01] MEDS: MAGNESIUM OXIDE 400 MG TAB PO SCH (07:44)
[2017-01-01 07:52] VITALS: BP 147/94; PULSE 58; TEMP 36.6; O2SAT 96
[2017-01-01] MEDS: INSULIN ASPART 100 UNITS/ML 3 ML PEN SC SCH (08:53)
[2017-01-01] MEDS: INSULIN GLARGINE SOLOSTAR 100 UNITS/ML 3 ML PEN SC SCH (08:53)
--- NOTE | 2017-01-01 10:23 | Discharge Instructions ---
Discharge Instructions Date of Service Jan 01, 2017. Admission Reason for Admission: Hepatic Encephalopathy, Concompliance Discharge Discharge Diagnosis / Problem: KLEIN CIRRHOSIS /HEPATIC ENCEPHALOPAHTY Discharge Goals Goal(s): Increase independence, Improve disease control, Therapeutic intervention Activity Recommendations Activity Limitations: resume your previous activity . Instructions / Follow-Up Instructions / Follow-Up HOSPITAL FOLLOW UP ON 01/05/2017 @ 11:00 AM WITH Atiya Baltazar DO [facility] CARDIOLOGY FOLLOW UP ON 01/04/2017 @ 1:25 PM [facility] IS VERY IMPORTANT TO TAKE THE MEDICATIONS REGULAR DIRECTED BY PHYSICIAN WITH OUT SKIPPING ANY DOSE Current Hospital Diet Patient's current hospital diet: AHA Diet (Heart Healthy), Diabetes Type 1 Diet , Low Sodium Diet (2gm Na) Discharge Diet Recommended Diet: AHA Diet (Heart Healthy) Pending Studies Studies pending at discharge: no Laboratory Results Hemoglobin A1c Test 11/09/16 03:57 Range/Units Estimated Average Glucose 203 mg/dl Hemoglobin A1c 8.7 H 4.5-5.6 % Lipid Panel Test 11/09/16 03:57 Range/Units Triglycerides Level 137 0-150 mg/dl Cholesterol Level 142 0-200 mg/dl HDL Cholesterol 48 mg/dl Cholesterol/HDL Ratio 3.0 LDL Cholesterol, Calculated 67 mg/dl Medical Emergencies . Who to Call and When: Medical Emergencies: If at any time you feel your situation is an emergency, please call 911 immediately. . Non-Emergent Contact Non-Emergency issues call your: Primary Care Provider . . "Provider Documentation" section prepared by Nida Pham. VTE Core Measure Inpt VTE Proph given/why not?: Cherelle Santiago, SCD's
[2017-01-01 11:09] VITALS: BP 147/94; PULSE 58; TEMP 36.6; O2SAT 96
--- NOTE | 2017-01-01 15:39 | Discharge Summary ---
Discharge Summary Date of Service Jan 01, 2017. Discharge Summary Admission Date: Dec 30, 2016 at 17:09 Discharge Date: Jan 01, 2017 Principal Diagnosis: KLEIN CIRRHOSIS /HEPATIC ENCEPHALOPATHY Procedures: ABDOMINAL ULTRASOUND, RIGHT UPPER QUADRANT HISTORY: Right upper quadrant abdominal pain. COMPARISON: Abdominal ultrasound June 01, [address] of the abdomen and pelvis February 13, 2016. FINDINGS: Coarsening of hepatic echotexture and nodularity of the liver surface are indicative of cirrhosis. No hepatic lesions are identified by sonography. There is no biliary ductal dilatation. The pancreas is obscured by overlying bowel gas. Gallstones are noted within the gallbladder. There is no gallbladder wall thickening or pericholecystic fluid. There is no right hydronephrosis. IMPRESSION: 1. Cirrhosis. 2. Cholelithiasis. No gallbladder wall thickening. 3. Partially obscured pancreas. Pending Studies/Follow-Up: Instructions / Follow-Up HOSPITAL FOLLOW UP ON 01/05/2017 @ 11:00 AM WITH Atiya Baltazar DO [facility] CARDIOLOGY FOLLOW UP ON 01/04/2017 @ 1:25 PM WITH Cooper Hemphill DO Cardiology, [facility] IT IS VERY IMPORTANT TO TAKE THE MEDICATIONS REGULAR DIRECTED BY PHYSICIAN WITH OUT SKIPPING ANY DOSE Medication Reconciliation Continued Medications: Albuterol (Ventolin Hfa) 60 Puffs/5400 Mcg Aers 2 PUFFS INH Q4H PRN for Shortness of Breath Empagliflozin (Jardiance) 10 Mg Tab 10 MG PO DAILY Ferrous Gluconate (Ferrous Gluconate) 324 Mg Tab 1 TAB PO BID Furosemide (Furosemide) 40 Mg Tab 40 MG PO DAILY Hydroxyzine HCl (Hydroxyzine Pamoate) 25 Mg Tab 25 MG PO HS PRN for Anxiety Insulin Aspart (Novolog Flexpen) 100 Units/Ml Inj 38 SC UD TAKE 38 UNITS BEFORE BREAKFAST,LUNCH, AND EVENING MEAL OR DIRECTED Insulin Glargine (Lantus Solostar) 100 Unit/Ml Inj 45 UNITS SC BID, #30 Isosorbide Mononitrate Ext Rel (Imdur Ext Rel) 30 Mg Tabcr 30 MG PO QAM Lactulose (Chronulac) 10 Gm/15 Ml Syrp 30 ML PO TID TAKE 30ML BY MOUTH 3 TIMES A DAY. HOLD ADDITIONAL DOSE FOR THAT DAY IF ALREADY HAD 3 BOWEL MOVEMENTS Losartan Potassium (Losartan Potassium) 25 Mg Tab 25 MG PO DAILY Magnesium Oxide (Mag-Ox) 400 Mg Tab 400 MG PO BID, TAB Metoprolol Tartrate (Lopressor) 25 Mg Tab 25 MG PO BID Nitroglycerin (Nitrostat) 0.4 Mg Tab 0.4 MG UT UD PRN for Chest Pain PLACE ONE TABLET UNDER THE TONGUE EVERY 5 MINUTES FOR UP TO 3 DOSES IF NEEDED FOR CHEST PAIN Pantoprazole (Pantoprazole Sodium) 40 Mg Tab 40 MG PO BID Potassium Chloride Microencaps (Potassium Chloride Er) 10 Meq Tab 20 MEQ PO DAILY Rifaximin (Xifaxan) 550 Mg Tab 550 MG PO BID, TAB Rosuvastatin Calcium (Rosuvastatin Calcium) 40 Mg Tab 40 MG PO DAILY Tamsulosin HCl (Tamsulosin HCl) 0.4 Mg Cap 0.4 MG PO DAILY Zolpidem Tartrate (Ambien) 5 Mg Tab 10 MG PO HS PRN for Sleep, TAB Admission Information HPI (per Admitting provider): Patient seen and examined. 76 year old male with PMHx of KLEIN cirrhosis, IDDM, CAD s/p stent, CKd stage 3, Severe , BPH, GERD, and CLAUDIO presents to the ED at the request of his PCP for abnormal lab work. Patient has had some nausea for the last several days. He reports when he gets nauseated he does not take any of his medications. He saw his PCP yesterday who thought the patient seemed more confused than normal and moving and speaking slower. She ordered blood work which showed an Ammonia level of 106 and glucose >300. She referred him to the ED for further evaluation. Patient reports currently he feels well. He denies fevers, chills, URI symptoms, chest pain, SOB, nausea, vomiting, diarrhea , dysuria, calf pain and edema. He reports urinary frequency. In the ED VS are stable, Ammonia level is 74, BSG is 355. He received Lactulose and Insulin. He is resting comfortably. He will be admitted for further workup and treatment. Physical Exam (per Admitting): General Appearance: + pertinent finding (WD/WN 76 year old male sitting at the edge of bed in NAD with family at bedside) Head: normocephalic, atraumatic Eyes: PERRL, EOMI, sclerae normal ENT: hearing grossly normal, pharynx normal Neck: supple, no JVD Respiratory/Chest: chest non-tender, lungs clear, normal breath sounds, no respiratory distress, no accessory muscle use Cardiovascular: regular rate, rhythm, no edema, no gallop, no JVD, normal peripheral pulses, + systolic murmur Abdomen/GI: normal bowel sounds, non tender, soft, + distended Back: normal inspection, no muscle spasm Extremities/Musculoskelatal: no calf tenderness, normal capillary refill, no pedal edema Neurologic/Psych: alert, oriented x 3, + pertinent finding (speaking slowly otherwise no deficits noted ) Skin: normal color, warm/dry, no rash Lymphatic: no adenopathy Hospital Course H/O KLEIN CIRRHOSIS HEPATIC ENCEPHALOPATHY SECONDARY TO MEDICATION NONCOMPLIANCE -mental status improves to baseline pt admits of skipping dose of Lactulose -Resume lactulose, Rifaximin, Lasix -No signs of SBP, afebrile, no leukocytosis -Mild transaminitis stable to be discharge home -pt will continue to follow up with [facility] Henderson as out patient HYPOTENSION resolved BP at baseline pt reports of low BP at baseline due to Chronic liver disease presented with worsening of Hypotension possible due to mild dehydration encouraged to take more PO fluid IDDM TYPE 2 WITH HYPERGLYCEMIA BSG improved presented with hyperglycemia BSG > 355, no signs of DKA -Received 10 units IV insulin -A1c 7.5 ( shows baseline well control ) -Lantus at 35 units BID -SSI coverage -Pharmacy consulted for glycemic control -appreciate input -BSG AC HS HLD -continue statin CAD S/P STENT, AORTIC STENOSIS -Stable, no complaints -continue BB, Statin, Imdur, ARB, CLAUDIO -Hgb stable -continue Iron supplementation BPH -continue Flomax GERD -continue PPI CKD STAGE 3 -Crea 1.3 which is baseline -avoid nephrotoxic agents as able CODE STATUS: FULL CODE DVT PROPHYLAXIS SCD and TEDs no pharmacological anticoagulation due to thrombocytopenia DISPOSITION Discharge home today Discharge Instructions Discharge Instructions Date of Service Jan 01, 2017. Admission Reason for Admission: Hepatic Encephalopathy, Concompliance Discharge Discharge Diagnosis / Problem: KLEIN CIRRHOSIS /HEPATIC ENCEPHALOPATHY Discharge Goals Goal(s): Increase independence, Improve disease control, Therapeutic intervention Activity Recommendations Activity Limitations: resume your previous activity . Instructions / Follow-Up Instructions / Follow-Up HOSPITAL FOLLOW UP ON 01/05/2017 @ 11:00 AM WITH Atiya Baltazar DO [facility] CARDIOLOGY FOLLOW UP ON 01/04/2017 @ 1:25 PM WITH Cooper Hemphill, DO Cardiology, [facility] IT IS VERY IMPORTANT TO TAKE THE MEDICATIONS REGULAR DIRECTED BY PHYSICIAN WITH OUT SKIPPING ANY DOSE Current Hospital Diet Patient's current hospital diet: AHA Diet (Heart Healthy), Diabetes Type 1 Diet , Low Sodium Diet (2gm Na) Discharge Diet Recommended Diet: AHA Diet (Heart Healthy) Pending Studies Studies pending at discharge: no Laboratory Results Hemoglobin A1c Test 11/09/16 03:57 Range/Units Estimated Average Glucose 203 mg/dl Hemoglobin A1c 8.7 H 4.5-5.6 % Lipid Panel Test 11/09/16 03:57 Range/Units Triglycerides Level 137 0-150 mg/dl Cholesterol Level 142 0-200 mg/dl HDL Cholesterol 48 mg/dl Cholesterol/HDL Ratio 3.0 LDL Cholesterol, Calculated 67 mg/dl Medical Emergencies . Who to Call and When: Medical Emergencies: If at any time you feel your situation is an emergency, please call 911 immediately. . Non-Emergent Contact Non-Emergency issues call your: Primary Care Provider . . "Provider Documentation" section prepared by Nida Pham. VTE Core Measure Inpt VTE Proph given/why not?: Cherelle Santiago, SCD's Additional Copies To Atiya Baltazar D.O., Michael G., DO
[2017-03-03] MEDS ORDERED: NTRGSL/4 UT (00:45)
[2017-03-03] MEDS ORDERED: RIFA550T2 PO (14:57)
[2017-03-03] MEDS ORDERED: MAGN400T6 PO (14:57)
[2017-03-03] MEDS ORDERED: EMPA1TAB PO (16:06)
[2017-03-03] MEDS ORDERED: FERR325T18 PO (16:06)
[2017-04-28] MEDS ORDERED: LCTL45 PO (15:54)
[2017-06-10] MEDS ORDERED: SENN8.6T7 PO (18:01)
[2017-06-10] MEDS ORDERED: DXY100 PO (18:01)
[2017-06-10] MEDS ORDERED: DLCS PR (18:01)
[2017-06-10] MEDS ORDERED: ASPEC81 PO (18:01)
== END 2017-01-01 11:30 | disposition home health service (06) ==
LOC: ENRESERVDT → ENRESERVTM → C.EDB 13:50 → C.MS4W 17:09 → EDBEDREQ 17:17
PROVIDERS: ADMIT Family Medicine; ATTEND Hospitalist
DX: K72.90 Hepatic failure, unspecified without coma (principal); K74.60 Unspecified cirrhosis of liver; I25.10 Atherosclerotic heart disease of native coronary artery without angina pectoris; E78.5 Hyperlipidemia, unspecified; E11.65 Type 2 diabetes mellitus with hyperglycemia; I95.9 Hypotension, unspecified; K21.9 Gastro-esophageal reflux disease without esophagitis; K75.81 Nonalcoholic steatohepatitis (NASH); N40.1 Benign prostatic hyperplasia with lower urinary tract symptoms; N18.3 Chronic kidney disease, stage 3 (moderate); I12.9 Hypertensive chronic kidney disease with stage 1 through stage 4 chronic kidney disease, or unspecified chronic kidney disease; I35.0 Nonrheumatic aortic (valve) stenosis; K31.89 Other diseases of stomach and duodenum; Z87.891 Personal history of nicotine dependence; Z79.899 Other long term (current) drug therapy; Z79.4 Long term (current) use of insulin; Z91.14 Patient's other noncompliance with medication regimen

== ENCOUNTER 2017-03-03 17:52 | Observation (INO) | payer OTHER ==
[~2017-03-03] VITALS: Ht 157.5 cm; Wt 85.8 kg
[~2017-03-03 17:52] MED LIST changes: +EMPA1TAB PO; +FERR325T18 PO; +MAGN400T6 PO; +NTRGSL/4 UT; +RIFA550T2 PO
[2017-03-03 18:39] LABS: HEMATOCRIT 34.9 % (42-52); MEAN CELL VOLUME 90.9 fL (80-100); MEAN CORPUSCULAR HEMOGLOBIN 31.3 pg (25-34); MEAN CORPUSCULAR HGB CONC 34.4 g/dl (32-36); MEAN PLATELET VOLUME 11.6 fL (7.4-10.4); PLATELET COUNT 139 K/uL (130-400); RED BLOOD COUNT 3.84 M/uL (4.7-6.1)
[2017-03-03] MEDS ORDERED: SODIUM CHLORIDE 0.9% 1000ML 1,000 ML IV STA (18:43)
[2017-03-03 18:50] LABS: INR 1.1 (0.9-1.1); PROTHROMBIN TIME (PATIENT) 11.3 SECONDS (9.0-12.0)
[2017-03-03] MEDS ORDERED: ISOS30TA35 PO (18:53)
[2017-03-03] MEDS ORDERED: LPR25 PO (18:53)
[2017-03-03] MEDS ORDERED: ROSU40TA18 PO (18:53)
[2017-03-03] MEDS ORDERED: CZR25 PO (18:53)
[2017-03-03] MEDS ORDERED: LSX40 PO (18:53)
[2017-03-03] MEDS ORDERED: PANT40TA2 PO (18:58)
[2017-03-03] MEDS ORDERED: LACT10SO17 PO (18:58)
[2017-03-03] MEDS ORDERED: FLM4 PO (18:58)
[2017-03-03 19:00] LABS: ALT/SGPT 65 U/L (12-78); BLOOD UREA NITROGEN 22 mg/dl (7-18); BUN/CREATININE RATIO 14.7 (10-20); CALCIUM 9.6 mg/dl (8.5-10.1); CARBON DIOXIDE 25 mmol/L (21-32); CHLORIDE 109 mmol/L (98-107); GLUCOSE 193 mg/dl (70-99); SODIUM 142 mmol/L (136-145)
[2017-03-03 19:01] LABS: ALB/GLOB RATIO 0.8 (0.9-2); ALKALINE PHOSPHATASE 403 U/L (45-117)
--- NOTE | 2017-03-03 19:04 | DIAGNOSTIC IMAGING REPORT ---
CHEST ONE VIEW PORTABLE CLINICAL HISTORY: Chest pain, SOB COMPARISON STUDY: Chest radiograph December 30, 2016. FINDINGS: The lung volumes are normal. There is no pneumothorax or pleural effusion. There is no consolidation to suggest pneumonia. Cardiomediastinal silhouette is stable. Mild interstitial thickening is unchanged. IMPRESSION: No acute cardiopulmonary findings. No change in appearance of the chest. Electronically signed by: Vikash Smith M.D. 03/03/2017 7:03 PM Dictated Date/Time: 03/03/2017 7:02 PM
[2017-03-03 19:20] LABS: POTASSIUM 4.3 mmol/L (3.5-5.1)
[2017-03-03] MEDS ORDERED: INSDGIPEN SC (19:41)
[2017-03-03 20:07] LABS: MAGNESIUM 2.7 mg/dl (1.8-2.4)
[2017-03-03] MEDS ORDERED: POTA-74 PO (21:01)
[2017-03-03] MEDS ORDERED: NVLGI/PEN SC (21:01)
[2017-03-03] MEDS ORDERED: HYDR1CAP85 PO (21:01)
[2017-03-03] MEDS ORDERED: VNTHFA/IN INH (21:04)
--- NOTE | 2017-03-03 21:14 | EMERGENCY ROOM VISIT NOTE ---
History Report prepared by Kateibstephen: Tomas Nowak Under the Supervision of: Dr. Sal Kwok D.O. First contact with patient: 18:37 Chief Complaint: CHEST PAIN Stated Complaint: CHEST PAIN Nursing Triage Summary: Pt was on a walk today when he started to walk up hill and experienced chest pain radiating to his left shoulder. Pt states that he is now chest pain free. PMH: CHF, ID History of Present Illness The patient is a 76 year old male who presents to the Emergency Room with complaints of sharp chest pains that started earlier today. The patient states he was sitting on a bench and then go up to start to walk up a hill when he started to experience chest pain radiating to his left shoulder lasting for 10- 15 minutes. He admits that he went home to sit and it shortly resolved. The patient reports that he has a history of a heart attack and admits the symptoms he is experiencing now is similar to his heart attack symptoms in the past. He reports that he has had a hernia. He does admit to shortness of breath with the chest pain. He did take aspirin prior to arrival. The patient denies jaw pain, arm pain, headache, change in vision, fevers, nausea, vomiting, diarrhea, pain with urination, and melena. Source of History: patient Onset: today Position: chest Timing: resolved Modifying Factors (Worsening): exertion Associated Symptoms: No headache, No SOB, No nausea, No vomiting, No diarrhea, No urinary symptoms Review of Systems See HPI for pertinent positives & negatives. A total of 10 systems reviewed and were otherwise negative. 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 (6) Diabetes mellitus type 2 in obese (7) Diverticulosis (8) Dyslipidemia (9) GERD (gastroesophageal reflux disease) (10) GI bleed (11) Hepatic encephalopathy (12) Hiatal hernia (13) HTN (hypertension) (14) Kidney stone (15) Noncompliance (16) Portal hypertensive gastropathy (17) Transaminitis Surgical Problems: (1) H/O hemorrhoidectomy (2) History of cardiac catheterization (3) History of colonoscopy (4) History of lumbar laminectomy Family History FHx: heart disease FATHER ( from [place] age 65) BROTHER (CABG in his 40s) Social History Smoking Status: Former Smoker Alcohol Use: none Housing Status: lives alone Occupation Status: retired Current/Historical Medications Scheduled Empagliflozin (Jardiance), 10 MG PO QAM Ferrous Gluconate (Ferrous Gluconate), 324 MG PO BID Furosemide (Furosemide), 40 MG PO DAILY Insulin Aspart (Novolog Flexpen), 45 UNITS SC AC Insulin Glargine (Lantus Solostar), 45 UNITS SC AMPM Isosorbide Mononitrate Ext Rel (Imdur Ext Rel), 30 MG PO QAM Lactulose (Chronulac), 30 ML PO TID Losartan Potassium (Losartan Potassium), 25 MG PO DAILY Magnesium Oxide (Mag-Ox), 400 MG PO BID Metoprolol Tartrate (Lopressor), 25 MG PO BID Pantoprazole (Pantoprazole Sodium), 40 MG PO BID Potassium Chloride (Potassium Chloride Er), 20 MEQ PO DAILY Rifaximin (Xifaxan), 550 MG PO BID Rosuvastatin Calcium (Rosuvastatin Calcium), 40 MG PO DAILY Tamsulosin HCl (Tamsulosin HCl), 0.4 MG PO DAILY Scheduled PRN Albuterol Hfa (Ventolin Hfa), 2 PUFFS INH QID PRN for Cough Hydroxyzine Pamoate (Vistaril), 25 MG PO HS PRN for Anxiety Nitroglycerin (Nitrostat), 0.4 MG UT UD PRN for Chest Pain Allergies Coded Allergies: PRASHANT Inhibitors (Verified Allergy, Severe, ANGIOEDEMA from 10/10/11 ED adm, 12/30/16) Lisinopril (Verified Allergy, Severe, Edema - face, lips and tongue, ) Simvastatin (Verified Allergy, Unknown, RASH, SORE ALL OVER. 2013: Uses Crestor, 12/30/16) Physical Exam Vital Signs Date Time Temp Pulse Resp B/P (MAP) Pulse Ox O2 Delivery O2 Flow Rate FiO2 03/03/17 18:56 53 18 105/42 95 Room Air 03/03/17 18:40 58 18 84/56 96 Room Air 03/03/17 18:08 95 Room Air 03/03/17 18:08 36.8 58 18 67/36 95 Room Air 03/03/17 18:04 59 Physical Exam GENERAL: Sitting up in bed, alert, well appearing, well nourished, no distress, non-toxic EYE EXAM: normal conjunctiva, PERRL and EOM's grossly intact OROPHARYNX: no exudate, no erythema, lips, buccal mucosa, and tongue normal and mucous membranes are moist NECK: No JVD, supple, no nuchal rigidity, no adenopathy, non-tender LUNGS: Clear to auscultation. Normal chest wall mechanics HEART: systolic ejection murmur, S1 normal and S2 normal ABDOMEN: abdomen soft, non-tender, normo-active bowel sounds, no masses, no rebound or guarding. BACK: Back is symmetrical on inspection and there is no deformity, no midline tenderness, no CVA tenderness. SKIN: no rashes and no bruising UPPER EXTREMITIES: upper extremities are grossly normal. LOWER EXTREMITIES: pitting edema bilaterally. NEURO EXAM: Normal sensorium, cranial nerves II-XII grossly intact, normal speech, no gross weakness of arms, no gross weakness of legs. Gross sensation intact. Medical Decision & Procedures ER Provider Diagnostic Interpretation: XRAY: A chest view study was reviewed, no fracture was seen. CHEST ONE VIEW PORTABLE CLINICAL HISTORY: Chest pain, SOB COMPARISON STUDY: Chest radiograph December 30, 2016. FINDINGS: The lung volumes are normal. There is no pneumothorax or pleural effusion. There is no consolidation to suggest pneumonia. Cardiomediastinal silhouette is stable. Mild interstitial thickening is unchanged. IMPRESSION: No acute cardiopulmonary findings. No change in appearance of the chest. Electronically signed by: Vikash Smith M.D. 03/03/2017 7:03 PM Dictated Date/Time: 03/03/2017 7:02 PM Laboratory Results 03/03/17 17:30 03/03/17 17:30 Test 03/03/17 17:30 03/03/17 18:20 03/03/17 19:13 03/03/17 19:45 Red Blood Count 3.84 M/uL (4.7-6.1) Mean Corpuscular Volume 90.9 fL (80-100) Mean Corpuscular Hemoglobin 31.3 pg (25-34) Mean Corpuscular Hemoglobin Concent 34.4 g/dl (32-36) RDW Standard Deviation 50.4 fL (36.4-46.3) RDW Coefficient of Variation 15.3 % (11.5-14.5) Mean Platelet Volume 11.6 fL (7.4-10.4) Prothrombin Time 11.3 SECONDS (9.0-12.0) Prothromb Time International Ratio 1.1 (0.9-1.1) Activated Partial Thromboplast Time 24.7 SECONDS (21.0-31.0) Partial Thromboplastin Ratio 1.0 Anion Gap 8.0 mmol/L (3-11) Est Creatinine Clear Calc Drug Dose 39.0 ml/min Estimated GFR () 51.0 Estimated GFR (Non- 44.0 BUN/Creatinine Ratio 14.7 (10-20) Calcium Level 9.6 mg/dl (8.5-10.1) Total Bilirubin 0.8 mg/dl (0.2-1) Aspartate Amino Transf (AST/SGOT) 71 U/L (15-37) Alanine Aminotransferase (ALT/SGPT) 65 U/L (12-78) Alkaline Phosphatase 403 U/L (45-117) Total Creatine Kinase 85 U/L (39-308) Creatine Kinase MB 2.0 ng/ml (0.5-3.6) Creatine Kinase MB Ratio (0-3.0) Total Protein 7.1 gm/dl (6.4-8.2) Albumin 3.2 gm/dl (3.4-5.0) Globulin 3.9 gm/dl (2.5-4.0) Albumin/Globulin Ratio 0.8 (0.9-2) Bedside Troponin I < 0.030 ng/ml (0-0.045) Magnesium Level 2.7 mg/dl (1.8-2.4) Troponin I 0.019 ng/ml (0-0.045) Lipase 390 U/L (73-393) Laboratory results per my review. Medications Administered Medications (Trade) Dose Ordered Sig/Suman Route Start Time Stop Time Status Last Admin Dose Admin Sodium Chloride 1,000 ml @ 999 mls/hr Q1H1M STAT IV 03/03/17 18:43 03/03/17 19:43 DC 03/03/17 18:52 999 MLS/HR ECG Indication: chest pain Rate (beats per minute): 57 Rhythm: sinus bradycardia Findings: nonspecific-ST abn (Inferior), left axis deviation, other (flipped t wave) Comparison ECG Date: 12/30/ Change: ST waves are worsened ED Course ED COURSE: Vital signs were reviewed and showed hypotensive The patients medical record was reviewed The above diagnostic studies were performed and reviewed. ED treatments and interventions as stated above. Medication Reconciliation: I attest that I have personally reviewed the patient' s current medication list. 183: The patient was evaluated in room C07. A complete history and physical examination was performed. 1842: Sodium Chloride 1000 ml @ 999 mls/hr IV. 1943: I reevaluated the patient and he is resting comfortably. 2019: I discussed the patient's case with Dr. Davies, [facility] Hospitalist. He understands the patient's condition on agrees to accept the patient. The patient will be further evaluated. Medical Decision Differential diagnoses includes but is not limited to acute coronary syndrome, myocardial infarction, pericarditis, pulmonary embolus, aortic dissection, pneumonia, pneumothorax, musculoskeletal, shingles, esophageal. Patient is a 76-year-old male who presents the ER for exertional chest pain associated with shortness of breath and shoulder pain. He notes it resolved with rest. Upon evaluation he was found to be hypotensive with systolic pressures in the 80s to 90s. He was given a bolus normal saline. This improved /resolved. I do favor this likely secondary to the nitroglycerin he received prior to arrival. CBC was unremarkable along with BMP. Troponin was negative. EKG was nondiagnostic. He is completely asymptomatic. Patient was admitted to internal medicine. Consults Time Called: 2029 Consulting Physician: Dr. Davies Returned Call: 2029 I discussed the patient's case with Dr. Davies, [facility] Hospitalist. He understands the patient's condition on agrees to accept the patient. The patient will be further evaluated. Impression Primary Impression: Substernal precordial chest pain Additional Impression: Hypotension Scribe Attestation The scribe's documentation has been prepared under my direction and personally reviewed by me in its entirety. I confirm that the note above accurately reflects all work, treatment, procedures, and medical decision making performed by me. Departure Information Dispostion Being Evaluated By Hospitalist (Dr. Davies) Referrals Atiya Baltazar D.O. (PCP) Patient Instructions [facility] Problem Qualifiers Additional Impression: Hypotension Hypotension type: unspecified hypotension type Qualified Codes: I95.9 - Hypotension, unspecified
[2017-03-03] MEDS ORDERED: ASPIRIN 81 MG ECTAB PO STA (21:26)
[2017-03-03] MEDS ORDERED: GLUCOSE 40% GEL 15 GM TUBE PO PRN (21:30)
[2017-03-03] MEDS ORDERED: NITROGLYCERIN 0.4 MG SL PER TAB CHARGE SL PRN (21:30)
[2017-03-03] MEDS ORDERED: GLUCAGON FOR INJ 1 MG VIAL SQ PRN (21:30)
[2017-03-03] MEDS ORDERED: GLUCOSE 10 TABS/TUBE PO PRN (21:30)
[2017-03-03] MEDS ORDERED: ACETAMINOPHEN 325 MG TAB PO PRN (21:30)
[2017-03-03] MEDS ORDERED: DEXTROSE 50% 50 ML SYR IV PRN (21:30)
[2017-03-03] MEDS ORDERED: INSULIN ASPART 100 UNITS/ML 3 ML PEN SC STA (21:51)
[2017-03-03] MEDS ORDERED: LACTULOSE SYRUP 20 GM/30 ML UDC PO STA (21:52)
[2017-03-03] MEDS ORDERED: INSULIN GLARGINE SOLOSTAR 100 UNITS/ML 3 ML PEN SC STA (21:52)
[2017-03-03] MEDS ORDERED: RIFAXIMIN TAB 550 MG TAB PO STA (21:53)
[2017-03-03] MEDS ORDERED: IV FLUIDS COMPLETED PRN (22:00)
[2017-03-03 22:18] VITALS: BP 112/62; PULSE 55; TEMP 36.4; O2SAT 98; Ht 157.5 cm; Wt 85.8 kg
[2017-03-03 22:18] LABS: URINE APPEARANCE CLEAR (CLEAR); URINE BILIRUBIN NEG (NEG); URINE COLOR YELLOW; URINE NITRITE NEG (NEG); URINE SPECIFIC GRAVITY 1.016 (1.000-1.030); UROBILINOGEN NEG (NEG)
[2017-03-03 22:24] LABS: MANUAL MICROSCOPIC REQUIRED? NO; REVIEW REQ? NO
[2017-03-03] MEDS ORDERED: SODIUM CHLORIDE 0.45% 1000ML 1,000 ML IV SCH (22:30)
[2017-03-03 23:30] VITALS: BP 95/52; PULSE 53; TEMP 37; O2SAT 96
[2017-03-04] VITALS (7 sets, daily range): BP systolic 107–144; BP diastolic 54–66; PULSE 52–65; TEMP 36.4–36.8; O2SAT 94–98
--- NOTE | 2017-03-04 04:20 | HISTORY & PHYSICAL EXAMINATION ---
DATE OF ADMISSION: 03/03/2017 PRIMARY CARE DOCTOR: Dr. Baltazar. CHIEF COMPLAINT: Chest pain. History obtained from the patient and records HISTORY OF PRESENT ILLNESS: Medical history is significant for CAD status post stenting, hypertension, DM2, insulin requiring, cirrhosis secondary to nonalcoholic fatty liver disease, hyperlipidemia, history of severe aortic stenosis, chronic anemia (baseline hemoglobin of 12-13). thrombocytopenia Recent confinement in last December 2016 for hepatic encephalopathy. Today, the patient was walking up a hill when he had some achy left-sided chest pain with some shortness of breath, going to his left shoulder similar to heart attack in the past. Spontaneous resolution. No cough sx. MEDICAL HISTORY: As above. A 2D echo from October 2016 showed EF 60-65%, severe calcific aortic valve, mild MR, mild TR, mild to moderate pulmonary hypertension, PASP of 49 mmHg. Patient previously on Plavix a few years ago, discontinued per the patient preference as per records. Cardiac catheterization July 2016 showed patent coronary arteries with mild non-obstructive CAD. [facility] seen [place] [facility] (Dr. Hemphill) in December 2016. SURGERIES: He has had back surgery. HOME MEDICATIONS: As follows: NovoLog, losartan, furosemide, metoprolol, Klor-Con, tamsulosin, hydroxyzine, Lantus, ferrous gluconate, rosuvastatin, Protonix, Nitrostat, Mag-Ox, lactulose. ALLERGIES: LISINOPRIL, SIMVASTATIN. FAMILY HISTORY: Heart disease. PERSONAL AND SOCIAL HISTORY: Past tobacco abuse. 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 REVIEW OF SYSTEMS: As per HPI. All other ROS negative. PHYSICAL EXAMINATION: VITAL SIGNS: Blood pressure was noted to be initially 80/60, later 105/42, pulse rate 57, RR 18, temperature 36.6, sats 95 on room air. GENERAL: Noted to be obese, comfortable, looks younger for stated age. No respiratory distress. SKIN: Pallor. HEENT: Pale palpebral conjunctivae. Dry mucosa. NECK: Short neck. LUNGS: Decreased breath sounds. HEART: Systolic murmur. ABDOMEN: Some distention, nontender, abd hernia noted. EXTREMITIES: No edema. no tenderness NEUROLOGIC: No gross focality. LABORATORY DATA: Hemoglobin was noted to be 12, hematocrit 34, white cells 13.2, platelets noted to be 139. Sodium 140, potassium 4.3, chloride 109, CO2 25, BUN 20, creatinine 1.5, glucose of 193, trop 0.10 Hemoglobin A1c November 2016 was 7.5. IMAGING DATA: Chest x-ray, no acute pathology. EKG as per my interpretation, rate of 55, sinus bradycardia, LVH. TW flattening /inversion in the inferior leads, PRWP. ASSESSMENT: 1. Chest pain possible unstable angina history of coronary artery disease status post stenting 2. hypertension blood pressure on the lower side on arrival at the Emergency Room. 3. hyperlipidemia on statin tx 4. 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 severe aortic stenosis as per records. surgery was going to be risky as per px account 6. DM2, insulin requiring Reasonable control as of recent HgA1c. 7. past tobacco abuse 8. chronic anemia, Hg at baseline 9. ARF Observation PCU. Aspirin for now for secondary CAD prevention for now until ACS is ruled out. Continue home beta wesly, statin meds. Follow troponin. Cardiology consult. RE cp (Patient known to Dr. Hemphill) monitor crea response to IVF, hold ARB until crea normal Basal insulin, ISS BG goal 140-180 DVT prophylaxis, SCDs RE thrombocytopenia Full code. MTDD
[2017-03-04 06:25] LABS: BASO % 0.4 %; BASO ABS # 0.03 K/uL (0-0.2); COMPLETE YES; EOS % 2.4 %; HEMATOCRIT 33.9 % (42-52); IG% 0.2 %; LYMPH % 11.6 %; LYMPH ABS # 0.99 K/uL (1.2-3.4); MEAN CELL VOLUME 90.9 fL (80-100); MEAN CORPUSCULAR HGB CONC 31.9 g/dl (32-36); MEAN PLATELET VOLUME 11.4 fL (7.4-10.4); MONO % 8.7 %; NEUT % 76.7 %; PLATELET COUNT 104 K/uL (130-400); RED BLOOD COUNT 3.73 M/uL (4.7-6.1); WHITE BLOOD COUNT 8.51 K/uL (4.8-10.8)
[2017-03-04 06:55] LABS: BLOOD UREA NITROGEN 25 mg/dl (7-18); BUN/CREATININE RATIO 19.1 (10-20); CALCIUM 8.9 mg/dl (8.5-10.1); CARBON DIOXIDE 24 mmol/L (21-32); CHLORIDE 113 mmol/L (98-107); GLUCOSE 100 mg/dl (70-99); POTASSIUM 3.9 mmol/L (3.5-5.1); SODIUM 146 mmol/L (136-145)
[2017-03-04] MEDS: INSULIN ASPART 100 UNITS/ML 3 ML PEN SC SCH ×4 (07:00→21:26)
[2017-03-04] MEDS: LACTULOSE SYRUP 20 GM/30 ML UDC PO SCH ×3 (08:52→21:22)
[2017-03-04] MEDS: TAMSULOSIN HCL 0.4 MG CAP PO SCH (08:53)
[2017-03-04] MEDS: ASPIRIN 81 MG ECTAB PO SCH (08:53)
[2017-03-04] MEDS: FERROUS GLUCONATE 324 MG TAB PO SCH ×2 (08:53→21:22)
[2017-03-04] MEDS: ROSUVASTATIN CALCIUM 20 MG TAB PO SCH (08:53)
[2017-03-04] MEDS: ISOSORBIDE MONONITRATE 30 MG TABCR PO SCH (08:54)
[2017-03-04] MEDS: PANTOprazole SOD 40 MG TAB PO SCH ×2 (08:55→21:22)
[2017-03-04] MEDS: RIFAXIMIN TAB 550 MG TAB PO SCH ×2 (08:55→21:22)
[2017-03-04] MEDS: INSULIN GLARGINE SOLOSTAR 100 UNITS/ML 3 ML PEN SC SCH ×2 (08:57→21:27)
[2017-03-04] MEDS: METOPROLOL TARTRATE 25 MG TAB PO SCH ×2 (09:00→21:22)
--- NOTE | 2017-03-04 11:12 | Progress Note ---
Internal Med Progress Note Date of Service: Mar 04, 2017. Provider Documentation: SUBJECTIVE: The patient was seen and examined Exertional CP -relieves with rest No more Chest pain since admission OBJECTIVE: Vital Signs-as noted below Exam: General-No distress at rest Eyes-normal ENT-normal Neck-Supple Lungs-clear to ausucltate bilaterally Heart-Regular,no murmur appreciated Abdomen-Benign,no masses,bowel sound present Extremities-Trace edema bilaterally Neuro-AAOx3 Lab data as noted below. ASSESSMENT & PLAN: Chest pain Possible unstable angina History of coronary artery disease status post stenting and h/o aortic stenosis as per records. Aspirin for now for secondary CAD prevention for now until Continue home beta wesly, statin Serial Ivan are negative for any ACS EKG-SB,nonspecific ST-T Changes Cardiology consult. Hypertension Blood pressure on the lower side on arrival at the Emergency Room. Hyperlipidemia on statin tx Cirrhosis secondary to nonalcoholic liver disease No overt decompensation DM2, insulin requiring Reasonable control as of recent HgA1c. Basal insulin, ISS BG goal 140-180 Chronic anemia, Hg at baseline ARF Monitor crea response to IVF, hold ARB until crea normal DVT prophylaxis, SCDs RE thrombocytopenia Full code. DISPOSITION When cleared by Cardiology Vital Signs: Date Time Temp Pulse Resp B/P (MAP) Pulse Ox O2 Delivery O2 Flow Rate FiO2 03/04/17 16:00 Room Air 03/04/17 15:09 36.4 65 21 125/66 (85) 97 Room Air 03/04/17 12:00 Room Air 03/04/17 11:26 36.8 54 18 107/59 (75) 96 03/04/17 08:00 Room Air 03/04/17 07:34 36.5 53 20 129/63 (85) 97 Room Air 03/04/17 04:19 Room Air 03/04/17 03:26 36.5 52 20 110/54 (72) 94 Room Air 03/03/17 23:30 37.0 53 20 95/52 (66) 96 Room Air 03/03/17 22:18 36.4 55 112/62 98 Room Air 03/03/17 21:25 88 18 137/69 96 Room Air 03/03/17 18:56 53 18 105/42 95 Room Air 03/03/17 18:40 58 18 84/56 96 Room Air 03/03/17 18:08 95 Room Air 03/03/17 18:08 36.8 58 18 67/36 95 Room Air Lab Results: Results Past 24 Hours Test 03/03/17 18:20 03/03/17 19:13 03/03/17 21:07 03/03/17 21:40 Range/Units Bedside Troponin I < 0.030 0-0.045 ng/ml Magnesium Level 2.7 1.8-2.4 mg/dl Troponin I 0.019 0-0.045 ng/ml Lipase 390 73-393 U/L Lactic Acid Level 1.3 0.4-2.0 mmol/L Urine Color YELLOW Urine Appearance CLEAR CLEAR Urine pH 5.0 4.5-7.5 Urine Specific [place] 1.016 1.000-1.030 Urine Protein NEG NEG Urine Glucose (UA) 3+ NEG Urine Ketones NEG NEG Urine Occult Blood NEG NEG Urine Nitrite NEG NEG Urine Bilirubin NEG NEG Urine Urobilinogen NEG NEG Urine Leukocyte Esterase NEG NEG Test 03/03/17 22:12 03/04/17 05:41 03/04/17 06:48 03/04/17 11:09 Range/Units Bedside Glucose 311 117 138 70-99 mg/dl White Blood Count 8.51 4.8-10.8 K/uL Red Blood Count 3.73 4.7-6.1 M/uL Hemoglobin 10.8 14.0-18.0 g/dL Hematocrit 33.9 42-52 % Mean Corpuscular Volume 90.9 80-100 fL Mean Corpuscular Hemoglobin 29.0 25-34 pg Mean Corpuscular Hemoglobin Concent 31.9 32-36 g/dl Platelet Count 104 130-400 K/uL Mean Platelet Volume 11.4 7.4-10.4 fL Neutrophils (%) (Auto) 76.7 % Lymphocytes (%) (Auto) 11.6 % Monocytes (%) (Auto) 8.7 % Eosinophils (%) (Auto) 2.4 % Basophils (%) (Auto) 0.4 % Neutrophils # (Auto) 6.53 1.4-6.5 K/uL Lymphocytes # (Auto) 0.99 1.2-3.4 K/uL Monocytes # (Auto) 0.74 0.11-0.59 K/uL Eosinophils # (Auto) 0.20 0-0.5 K/uL Basophils # (Auto) 0.03 0-0.2 K/uL RDW Standard Deviation 50.8 36.4-46.3 fL RDW Coefficient of Variation 15.6 11.5-14.5 % Immature Granulocyte % (Auto) 0.2 % Immature Granulocyte # (Auto) 0.02 0.00-0.02 K/uL Sodium Level 146 136-145 mmol/L Potassium Level 3.9 3.5-5.1 mmol/L Chloride Level 113 98-107 mmol/L Carbon Dioxide Level 24 21-32 mmol/L Anion Gap 9.0 3-11 mmol/L Blood Urea Nitrogen 25 7-18 mg/dl Creatinine 1.30 0.60-1.40 mg/dl Est Creatinine Clear Calc Drug Dose 44.9 ml/min Estimated GFR () 60.6 Estimated GFR (Non- 52.3 BUN/Creatinine Ratio 19.1 10-20 Random Glucose 100 70-99 mg/dl Calcium Level 8.9 8.5-10.1 mg/dl Troponin I < 0.015 0-0.045 ng/ml Test 03/04/17 13:41 03/04/17 16:07 Range/Units Hemoglobin 11.4 14.0-18.0 g/dL Hematocrit 33.2 42-52 % Bedside Glucose 194 70-99 mg/dl Microbiology Results 03/03/17 Blood Culture, Received Pending 03/03/17 Blood Culture, Received Pending
--- NOTE | 2017-03-04 12:17 | Cardiology Consultation ---
Cardiology Consultation Date of Consultation: Mar 04, 2017 Requesting Physician: Keke Attending Belt Conveyor Drier: Song (Hayden Brewer PA-C) History of Present Illness History of Present Illness: Mr. Bryan Quintero is a 76 year old male who is being seen at the request of Dr. Davies. Reason for Cardiology Consultation is chest pain. Primary Belt Conveyor Drier is Dr. Cooper Hemphill. Mr. Quintero notes experiencing a recurrent episode of chest discomfort yesterday. He notes, on questioning, having experienced this feeling in the past, he believes prior to the last cardiac catheterization in July 2016 which revealed nonobstructive coronary artery disease as described below. Mr. Quintero notes developing "upset in the chest" yesterday while sitting on the bench outside the [employer]. He describes a feeling as though "something was on there (substernal area and left lower anterior chest). He attributed the feeling to the heat and humidity so he decided to return home. The discomfort was not aggravated by walking home though he did, as per his norm of late, have to stop multiple times due to dyspnea, "playing out." He notes returning home and sitting on the recliner before the discomfort eased. He eventually presented to the [facility] ER where he was seen by Dr. Kwok. He was noted to be hypotension and received IV fluid resuscitation with improvement. CXR showed no acute findings. EKG and cardiac enzymes have been negative. He has been discomfort free since presentation. (Hayden Brewer PA-C) History Past Medical and Surgical History: Severe aortic valve stenosis Coronary artery disease s/p stent to the RCA in 2009 InStent restenosis status post PCI with a drug eluting stent in 2012 Repeat cath in 07/2016 (see below) revealed patent stents, nonobstructive coronary artery disease. Cirrhosis secondary to nonalcoholic steatohepatitis History of gastrointestinal bleeding for which he was hospitalized in June 2016; hemoglobin 7.1, status post transfusion of 2 units PRBC's. Chronic anemia - recent colonoscopy and EGD x2 in May and June demonstrated no evidence of acute GI bleed. Anemia of chronic disease and iron deficiency anemia. Diaphragmatic hernia Type II diabetes mellitus Stage III chronic kidney disease Hypertension Dyslipidemia Osteoarthritis. Sciatica. Lumbar hemilaminectomy in 2010. External hemorrhoid excision Family History: Father at 60 with an OK. Mother about two years ago, around age 90, cause unknown. One brother postoperatively. One sister with cancer at a young age. Two other siblings remain, without cardiac issues. Social History: Reformed smoker, quit about 20 years ago after smoking 1-2 ppd x 35 years. No smokeless tobacco use. Rare alcohol. No illegal drug use. . Lives alone. One son lives about a block away. One son lives in [place]. 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 (Hayden Brewer PA-C) Review Of Systems General: No fevers, chills, or night sweats Head: No headache. Cardiovascular: See above. No syncope. Pulmonary: No cough. No hemoptysis. Gastrointestinal: No nausea, vomiting, or diarrhea. Skin: No rash. Musculoskeletal: Back pain. Neurological: Denies history of TIA, CVA, or seizure. Extremities: Mild edema. Complete review of systems was somewhat difficult to obtain, otherwise negative or noncontributory. (Hayden Brewer PA-C) Allergies Coded Allergies: PRASHANT Inhibitors (Verified Allergy, Severe, ANGIOEDEMA from 10/10/11 ED adm, 12/30/16) Lisinopril (Verified Allergy, Severe, Edema - face, lips and tongue, ) Simvastatin (Verified Allergy, Unknown, RASH, SORE ALL OVER. 2013: Uses Crestor, 12/30/16) Medications Reported Home Medications Medications Dose Route/Sig Max Daily Dose Days Date Category Dose Instructions Ventolin Hfa (Albuterol) 200 Puffs/51946 Mcg Aers 2 Puffs INH QID PRN 03/03/17 Reported Vistaril (Hydroxyzine Pamoate) 25 Mg Cap 25 Mg PO HS PRN 03/03/17 Reported Potassium Chloride Er (Potassium Chloride) 10 Meq Tab 20 Meq PO DAILY 03/03/17 Reported Novolog Flexpen (Insulin Aspart) 100 Units/Ml Inj 45 Units SC AC 03/03/17 Reported Jardiance (Empagliflozin) 10 Mg Tab 10 Mg PO QAM 07/03/16 Reported Ferrous Gluconate 324 Mg Tab 324 Mg PO BID 07/03/16 Reported Lantus Solostar (Insulin Glargine) 100 Unit/Ml Inj 45 Units SC AMPM 06/21/16 Reported Tamsulosin HCl 0.4 Mg Cap 0.4 Mg PO DAILY 05/30/16 Reported Pantoprazole Sodium (Pantoprazole) 40 Mg Tab 40 Mg PO BID 05/30/16 Reported Chronulac (Lactulose) 10 Gm/15 Ml Syrp 30 Ml PO TID 05/30/16 Reported TAKE 30 ML BY MOUTH 3 TIMES A DAY. HOLD ADDITIONAL DOSE FOR THAT DAY IF ALREADY HAD 3 BOWEL MOVEMENTS Rosuvastatin Calcium 40 Mg Tab 40 Mg PO DAILY 05/30/16 Reported Furosemide 40 Mg Tab 40 Mg PO DAILY 05/30/16 Reported Losartan Potassium 25 Mg Tab 25 Mg PO DAILY 05/30/16 Reported Lopressor (Metoprolol Tartrate) 25 Mg Tab 25 Mg PO BID 05/30/16 Reported Imdur Ext Rel (Isosorbide Mononitrate) 30 Mg Tabcr 30 Mg PO QAM 05/30/16 Reported Xifaxan (Rifaximin) 550 Mg Tab 550 Mg PO BID 01/07/16 Reported Mag-Ox (Magnesium Oxide) 400 Mg Tab 400 Mg PO BID 01/07/16 Reported Nitrostat (Nitroglycerin) 0.4 Mg Tab 0.4 Mg UT UD PRN 10/10/[address] ONE TABLET UNDER THE TONGUE EVERY 5 MINUTES FOR UP TO 3 DOSES IF NEEDED FOR CHEST PAIN (Hayden Brewer PA-C) Physical Exam Vital Signs (Last 8hrs): Last 8 Hrs Date Time Temp Pulse Resp B/P (MAP) Pulse Ox O2 Delivery O2 Flow Rate FiO2 03/04/17 08:00 Room Air 03/04/17 07:34 36.5 53 20 129/63 (85) 97 Room Air 03/04/17 04:19 Room Air 03/04/17 03:26 36.5 52 20 110/54 (72) 94 Room Air General Appearance: Alert and Oriented x3. NAD. HEENT: Normocephalic Atraumatic. PER, EOMI, conjunctiva and sclera clear Neck: Supple. Transmitted systolic murmur to the right carotid. No JVD. Respiratory: Breath sounds clear to auscultation bilaterally. No w/r/r. Cardiovascular: Regular. Bradycardic at 56 bpm. Grade II/IV systolic ejection murmur. Decreased S2. No gallop. PMI is not displaced. Abdomen: +BS. Soft. Nontender. Extremities: Trivial edema. No clubbing. No cyanosis. Distal pulses 3/4 bilaterally. Neuro: No focal deficits. Psychiatric: Normal affect. (Hayden Brewer PA-C) Data Last 24 Hours Test 03/03/17 17:30 03/03/17 18:20 03/03/17 19:13 03/03/17 21:07 White Blood Count 13.20 K/uL Red Blood Count 3.84 M/uL Hemoglobin 12.0 g/dL Hematocrit 34.9 % Mean Corpuscular Volume 90.9 fL Mean Corpuscular Hemoglobin 31.3 pg Mean Corpuscular Hemoglobin Concent 34.4 g/dl RDW Standard Deviation 50.4 fL RDW Coefficient of Variation 15.3 % Platelet Count 139 K/uL Mean Platelet Volume 11.6 fL Prothrombin Time 11.3 SECONDS Prothromb Time International Ratio 1.1 Activated Partial Thromboplast Time 24.7 SECONDS Partial Thromboplastin Ratio 1.0 Sodium Level 142 mmol/L Potassium Level 4.3 mmol/L Chloride Level 109 mmol/L Carbon Dioxide Level 25 mmol/L Anion Gap 8.0 mmol/L Blood Urea Nitrogen 22 mg/dl Creatinine 1.50 mg/dl Est Creatinine Clear Calc Drug Dose 39.0 ml/min Estimated GFR () 51.0 Estimated GFR (Non- 44.0 BUN/Creatinine Ratio 14.7 Random Glucose 193 mg/dl Calcium Level 9.6 mg/dl Total Bilirubin 0.8 mg/dl Aspartate Amino Transf (AST/SGOT) 71 U/L Alanine Aminotransferase (ALT/SGPT) 65 U/L Alkaline Phosphatase 403 U/L Total Creatine Kinase 85 U/L Creatine Kinase MB 2.0 ng/ml Creatine Kinase MB Ratio Total Protein 7.1 gm/dl Albumin 3.2 gm/dl Globulin 3.9 gm/dl Albumin/Globulin Ratio 0.8 Bedside Troponin I < 0.030 ng/ml Magnesium Level 2.7 mg/dl Troponin I 0.019 ng/ml Lipase 390 U/L Lactic Acid Level 1.3 mmol/L Test 03/03/17 21:40 03/03/17 22:12 03/04/17 05:41 03/04/17 06:48 Urine Color YELLOW Urine Appearance CLEAR Urine pH 5.0 Urine Specific [place] 1.016 Urine Protein NEG Urine Glucose (UA) 3+ Urine Ketones NEG Urine Occult Blood NEG Urine Nitrite NEG Urine Bilirubin NEG Urine Urobilinogen NEG Urine Leukocyte Esterase NEG Bedside Glucose 311 mg/dl 117 mg/dl White Blood Count 8.51 K/uL Red Blood Count 3.73 M/uL Hemoglobin 10.8 g/dL Hematocrit 33.9 % Mean Corpuscular Volume 90.9 fL Mean Corpuscular Hemoglobin 29.0 pg Mean Corpuscular Hemoglobin Concent 31.9 g/dl Platelet Count 104 K/uL Mean Platelet Volume 11.4 fL Neutrophils (%) (Auto) 76.7 % Lymphocytes (%) (Auto) 11.6 % Monocytes (%) (Auto) 8.7 % Eosinophils (%) (Auto) 2.4 % Basophils (%) (Auto) 0.4 % Neutrophils # (Auto) 6.53 K/uL Lymphocytes # (Auto) 0.99 K/uL Monocytes # (Auto) 0.74 K/uL Eosinophils # (Auto) 0.20 K/uL Basophils # (Auto) 0.03 K/uL RDW Standard Deviation 50.8 fL RDW Coefficient of Variation 15.6 % Immature Granulocyte % (Auto) 0.2 % Immature Granulocyte # (Auto) 0.02 K/uL Sodium Level 146 mmol/L Potassium Level 3.9 mmol/L Chloride Level 113 mmol/L Carbon Dioxide Level 24 mmol/L Anion Gap 9.0 mmol/L Blood Urea Nitrogen 25 mg/dl Creatinine 1.30 mg/dl Est Creatinine Clear Calc Drug Dose 44.9 ml/min Estimated GFR () 60.6 Estimated GFR (Non- 52.3 BUN/Creatinine Ratio 19.1 Random Glucose 100 mg/dl Calcium Level 8.9 mg/dl Troponin I < 0.015 ng/ml July 20, 2016 [facility] Widely patent left main trunk. There was mild diffuse disease in the LAD. The left circumflex was described as small and nondominant. The was a small first marginal branch with a 50% ostial stenosis. The right coronary artery was dominant, There was diffuse 20% stenosis in the proximal and mid portion of the right coronary artery. The stents in the proximal and mid portion of the right coronary artery were noted to be widely patent. January 26, 2017 [facility] The left ventricular cavity is small. The LV wall thickness is mildly increased ( concentric). Left ventricular wall motion if hyperdynamic. Calculated LV ejection Fraction = 65-70% (biplane method of discs). Severe aortic valve stenosis is present. There is a focal area of calcification on the anterior mitral valve leaflet. The estimated pulmonary artery systolic pressure is 38- 40mm Hg. Compared to previous study dated 04/26/2017, mean aortic valve pressure gradient is now 46 mmHg, with peak aortic valve velocity approximately 4.38 m/sec. . Mild pulmonary hypertension is present. EKG dated and timed 03-MAR-2017 @ 18:08:03: Sinus bradycardia. Moderate voltage criteria for LVH, may be normal variant. Nonspecific ST and T wave abnormality. When compared with ECG of 30-DEC-2016 14:15, no significant change was found. Confirmed by CARMEN ALBA ([id number]) on 03/03/2017 9:42:51 PM EKG dated and timed 04-MAR-2017 @ 06:53:37: Sinus bradycardia. Moderate voltage criteria for LVH, may be normal variant. Nonspecific T wave abnormality. Prolonged QT. Telemetry: Sinus bradycardi at 55 bpm. Three beat PVC run at 23:58:33. Admission CXR (As per Dr. Smith): No acute cardiopulmonary findings. No change in appearance of the chest. (Hayden Brewer PA-C) Assessment & Plan 76 year old male presenting with chest discomfort as detailed above. EKG's are without acute change. Cardiac enzymes negative x 2. Cardiac catheterization on July 20, 2016 with nonobstructive coronary artery disease as detailed above. Resting echocardiography in January 2017 revealed severe aortic valve stenosis. Blood pressures on presentation and predominately throughout hospitalization have been hypotension. Recommend discontinuation of Losartan given hypotension and significant aortic valve disease. If blood pressure continues to be hypotension would discontinue Imdur. Further inpatient recommendations pending evaluation by Dr. Zuleta. Recommend close outpatient follow-up, reconsideration for transcatheter aortic valve replacement. (Hayden Brewer PA-C) Patient seen and examined, agree with assessment as above. No sign of cardiac ischemia by EKG, enzymes. Hypotension on presentation, ? heat with severe .. Plan as above plus history of GI bleed, hgb declining recheck now, Samuel Zuleta MD (Samuel Zuleta M.D.)
[2017-03-04 13:49] LABS: HEMATOCRIT 33.2 % (42-52)
[2017-03-04] MEDS ORDERED: NURSING VERBAL MED ORDER ONE (16:30)
[2017-03-05 03:17] VITALS: BP 134/68; PULSE 61; TEMP 36.9; O2SAT 96
[2017-03-05 05:39] LABS: HEMATOCRIT 33.4 % (42-52); MEAN CELL VOLUME 91.8 fL (80-100); MEAN CORPUSCULAR HEMOGLOBIN 30.5 pg (25-34); MEAN CORPUSCULAR HGB CONC 33.2 g/dl (32-36); RED BLOOD COUNT 3.64 M/uL (4.7-6.1); WHITE BLOOD COUNT 6.59 K/uL (4.8-10.8)
[2017-03-05 05:40] LABS: BASO % 0.5 %; BASO ABS # 0.03 K/uL (0-0.2); COMPLETE YES; EOS % 2.9 %; IG% 0.8 %; LYMPH % 13.8 %; LYMPH ABS # 0.91 K/uL (1.2-3.4); MEAN PLATELET VOLUME 10.8 fL (7.4-10.4); MONO % 9.9 %; NEUT % 72.1 %; PLATELET COUNT 89 K/uL (130-400)
[2017-03-05 06:14] LABS: BUN/CREATININE RATIO 18.7 (10-20); CALCIUM 8.3 mg/dl (8.5-10.1); CREATININE 1.1 mg/dl (0.60-1.40); POTASSIUM 3.9 mmol/L (3.5-5.1)
[2017-03-05 07:52] VITALS: BP 146/65; PULSE 66; TEMP 36.9; O2SAT 96
[2017-03-05] MEDS: INSULIN ASPART 100 UNITS/ML 3 ML PEN SC SCH ×2 (08:24→12:12)
[2017-03-05] MEDS: LACTULOSE SYRUP 20 GM/30 ML UDC PO SCH (08:26)
[2017-03-05] MEDS: INSULIN GLARGINE SOLOSTAR 100 UNITS/ML 3 ML PEN SC SCH (08:26)
[2017-03-05] MEDS: ROSUVASTATIN CALCIUM 20 MG TAB PO SCH (08:26)
[2017-03-05] MEDS: ASPIRIN 81 MG ECTAB PO SCH (08:26)
[2017-03-05] MEDS: ISOSORBIDE MONONITRATE 30 MG TABCR PO SCH (08:27)
[2017-03-05] MEDS: TAMSULOSIN HCL 0.4 MG CAP PO SCH (08:27)
[2017-03-05] MEDS: FERROUS GLUCONATE 324 MG TAB PO SCH (08:27)
[2017-03-05] MEDS: PANTOprazole SOD 40 MG TAB PO SCH (08:28)
[2017-03-05] MEDS: METOPROLOL TARTRATE 25 MG TAB PO SCH (08:28)
[2017-03-05] MEDS: RIFAXIMIN TAB 550 MG TAB PO SCH (08:28)
--- NOTE | 2017-03-05 10:10 | CARDIOLOGY CONSULTATION ---
DATE OF CONSULTATION: 03/05/2017 The patient seen and examined. Chart, medications, telemetry reviewed. SUBJECTIVE: The patient had no complaints overnight. Notes no chest pain, shortness of breath, dizziness, lightheadedness, syncope or near syncope. Notes no arrhythmias on telemetry. OBJECTIVE: VITAL SIGNS: Heart rate 66, blood pressure is 146/65. HEENT: Normocephalic, atraumatic. Nares without discharge. Throat was clear. NECK: Supple without thyromegaly, lymphadenopathy, JVD or bruit. LUNGS: Clear. CARDIOVASCULAR: Regular with harsh grade 3/6 systolic murmur. There is no diastolic murmur. ABDOMEN: Soft, nontender. There is no hepatosplenomegaly. There is no hepatojugular reflux. EXTREMITIES: Without cyanosis or clubbing. There is no peripheral edema. LABORATORY DATA: Sodium is 143, potassium is 3.9, chloride is 111, bicarb is 24, BUN is 21, creatinine is 1.1, hemoglobin is 11.1. IMPRESSION: A 76-year-old male with history of recent chest pain without overt ischemia, symptoms likely in the setting of heat and underlying cardiac issues. The patient has had no further recurrence in the hospital, does have underlying history of severe calcific aortic stenosis and we will need close clinical follow up post-hospital discharge with cardiology. We will make arrangements to be seen in the next 2 weeks' time. Avoid strenuous activity and extremes of heat. All medications continued as previously ordered.
[2017-03-05 11:28] VITALS: BP 113/63; PULSE 58; TEMP 36.5; O2SAT 94
--- NOTE | 2017-03-05 11:29 | Progress Note ---
Internal Med Progress Note Date of Service: Mar 05, 2017. Provider Documentation: SUBJECTIVE: The patient was seen and examined Exertional CP -relieves with rest No more Chest pain since admission NO ACS Ambulating well without any chest pain OBJECTIVE: Vital Signs-as noted below Exam: General-No distress at rest Eyes-normal ENT-normal Neck-Supple Lungs-clear to ausucltate bilaterally Heart-Regular ,2/6 ESM over precordium Abdomen-Benign,no masses,bowel sound present Extremities-Trace edema bilaterally Neuro-AAOx3 Lab data as noted below. ASSESSMENT & PLAN: Chest pain Possible unstable angina History of coronary artery disease status post stenting and h/o aortic stenosis as per records. Aspirin for now for secondary CAD prevention for now until Continue home beta wesly, statin Serial Ivan are negative for any ACS EKG-SB,nonspecific ST-T Changes Recent ECHO::January 26, 2017 TTE Interpretation Summary (Dr. Kanchan Ferreira): The left ventricular cavity is small. The LV wall thickness is mildly increased (concentric). Left ventricular wall motion if hyperdynamic. Calculated LV ejection Fraction = 65-70% (biplane method of discs). Severe aortic valve stenosis is present. There is a focal area of calcification on the anterior mitral valve leaflet. The estimated pulmonary artery systolic pressure is 38-40mm Hg. Compared to previous study dated 04/26/2017, mean aortic valve pressure gradient is now 46 mmHg, with peak aortic valve velocity approximately 4.38 m/sec. . Mild pulmonary hypertension is present. Cardiology consult.-appreciate Input Will need close follow up with cardiology-will make appointment in 2 weeks Hypertension Blood pressure on the lower side on arrival at the Emergency Room. Remains stable Hyperlipidemia on statin tx Cirrhosis secondary to nonalcoholic liver disease No overt decompensation DM2, insulin requiring Reasonable control as of recent HgA1c. Basal insulin, ISS BG goal 140-180 Chronic anemia, Hg at baseline Hb stable ARF Monitor crea response to IVF, hold ARB until crea normal Creatinine -normalized DVT prophylaxis, SCDs RE thrombocytopenia Full code. DISPOSITION Discharge home today Vital Signs: Date Time Temp Pulse Resp B/P (MAP) Pulse Ox O2 Delivery O2 Flow Rate FiO2 03/05/17 08:00 Room Air 03/05/17 07:52 36.9 66 19 146/65 (92) 96 Room Air 03/05/17 04:00 Room Air 03/05/17 03:17 36.9 61 20 134/68 (90) 96 Room Air 03/05/17 00:00 Room Air 03/04/17 23:25 36.6 63 20 125/62 (83) 95 Room Air 03/04/17 20:00 Room Air 03/04/17 19:15 36.7 65 18 144/61 (88) 98 Room Air 03/04/17 16:00 Room Air 03/04/17 15:09 36.4 65 21 125/66 (85) 97 Room Air 03/04/17 12:00 Room Air 03/04/17 11:26 36.8 54 18 107/59 (75) 96 Lab Results: Results Past 24 Hours Test 03/04/17 13:41 03/04/17 16:07 03/04/17 20:16 03/05/17 05:20 Range/Units Hemoglobin 11.4 11.1 14.0-18.0 g/dL Hematocrit 33.2 33.4 42-52 % Bedside Glucose 194 268 70-99 mg/dl White Blood Count 6.59 4.8-10.8 K/uL Red Blood Count 3.64 4.7-6.1 M/uL Mean Corpuscular Volume 91.8 80-100 fL Mean Corpuscular Hemoglobin 30.5 25-34 pg Mean Corpuscular Hemoglobin Concent 33.2 32-36 g/dl Platelet Count 89 130-400 K/uL Mean Platelet Volume 10.8 7.4-10.4 fL Neutrophils (%) (Auto) 72.1 % Lymphocytes (%) (Auto) 13.8 % Monocytes (%) (Auto) 9.9 % Eosinophils (%) (Auto) 2.9 % Basophils (%) (Auto) 0.5 % Neutrophils # (Auto) 4.76 1.4-6.5 K/uL Lymphocytes # (Auto) 0.91 1.2-3.4 K/uL Monocytes # (Auto) 0.65 0.11-0.59 K/uL Eosinophils # (Auto) 0.19 0-0.5 K/uL Basophils # (Auto) 0.03 0-0.2 K/uL RDW Standard Deviation 52.5 36.4-46.3 fL RDW Coefficient of Variation 15.9 11.5-14.5 % Immature Granulocyte % (Auto) 0.8 % Immature Granulocyte # (Auto) 0.05 0.00-0.02 K/uL Sodium Level 143 136-145 mmol/L Potassium Level 3.9 3.5-5.1 mmol/L Chloride Level 111 98-107 mmol/L Carbon Dioxide Level 24 21-32 mmol/L Anion Gap 8.0 3-11 mmol/L Blood Urea Nitrogen 21 7-18 mg/dl Creatinine 1.10 0.60-1.40 mg/dl Est Creatinine Clear Calc Drug Dose 52.5 ml/min Estimated GFR () 74.1 Estimated GFR (Non- 64.0 BUN/Creatinine Ratio 18.7 10-20 Random Glucose 147 70-99 mg/dl Calcium Level 8.3 8.5-10.1 mg/dl Test 03/05/17 06:23 03/05/17 11:05 Range/Units Bedside Glucose 124 232 70-99 mg/dl
--- NOTE | 2017-03-05 11:52 | Discharge Instructions ---
Discharge Instructions Date of Service Mar 05, 2017. Admission Reason for Admission: Chest Pain Discharge Discharge Diagnosis / Problem: Chest Pain-No ACS,Aortic Stenosis Discharge Goals Goal(s): Prevent Disease Progression Activity Recommendations Activity Limitations: resume your previous activity (No strenuous activity) . Instructions / Follow-Up Instructions / Follow-Up Your Doctors office and Cardiology office will call with appointment Current Hospital Diet Patient's current hospital diet: Diabetes Type 2 Diet Discharge Diet Recommended Diet: AHA Diet (Heart Healthy), Diabetes Type 2 Diet Pending Studies Studies pending at discharge: no Medical Emergencies . Who to Call and When: Medical Emergencies: If at any time you feel your situation is an emergency, please call 911 immediately. . Non-Emergent Contact Non-Emergency issues call your: Primary Care Provider . Past History Medical & Surgical History: (1) Chest pain (2) Hiatal hernia (3) GERD (gastroesophageal reflux disease) (4) Diabetes mellitus type 2 in obese (5) HTN (hypertension) (6) CAD (coronary artery disease) (7) Aortic stenosis (8) Cirrhosis of liver not due to alcohol (9) History of colonoscopy (10) History of cardiac catheterization (11) H/O hemorrhoidectomy (12) History of lumbar laminectomy . "Provider Documentation" section prepared by Precious Ragland. . VTE Core Measure Inpt VTE Proph given/why not?: SCD's
[2017-03-05 12:36] VITALS: BP 113/63; PULSE 58; TEMP 36.5; O2SAT 94
--- NOTE | 2017-03-06 07:28 | Discharge Summary ---
Discharge Summary Date of Service Mar 06, 2017. Discharge Summary Admission Date: Mar 03, 2017 at 21:03 Discharge Date: Mar 05, 2017 Discharge Disposition: Home Principal Diagnosis: Chest Pain-No ACS,Aortic Stenosis Secondary Diagnoses/Problems: Please see H&P and Hospital Progress note Consultations: Cardiology Medication Reconciliation Continued Medications: Albuterol Hfa (Ventolin Hfa) 200 Puffs/53895 Mcg Aers 2 PUFFS INH QID PRN for Cough Empagliflozin (Jardiance) 10 Mg Tab 10 MG PO QAM Ferrous Gluconate (Ferrous Gluconate) 324 Mg Tab 324 MG PO BID Furosemide (Furosemide) 40 Mg Tab 40 MG PO DAILY Hydroxyzine Pamoate (Vistaril) 25 Mg Cap 25 MG PO HS PRN for Anxiety Insulin Aspart (Novolog Flexpen) 100 Units/Ml Inj 45 UNITS SC AC Insulin Glargine (Lantus Solostar) 100 Unit/Ml Inj 45 UNITS SC AMPM Isosorbide Mononitrate Ext Rel (Imdur Ext Rel) 30 Mg Tabcr 30 MG PO QAM Lactulose (Chronulac) 10 Gm/15 Ml Syrp 30 ML PO TID TAKE 30 ML BY MOUTH 3 TIMES A DAY. HOLD ADDITIONAL DOSE FOR THAT DAY IF ALREADY HAD 3 BOWEL MOVEMENTS Losartan Potassium (Losartan Potassium) 25 Mg Tab 25 MG PO DAILY Magnesium Oxide (Mag-Ox) 400 Mg Tab 400 MG PO BID, TAB Metoprolol Tartrate (Lopressor) 25 Mg Tab 25 MG PO BID Nitroglycerin (Nitrostat) 0.4 Mg Tab 0.4 MG UT UD PRN for Chest Pain PLACE ONE TABLET UNDER THE TONGUE EVERY 5 MINUTES FOR UP TO 3 DOSES IF NEEDED FOR CHEST PAIN Pantoprazole (Pantoprazole Sodium) 40 Mg Tab 40 MG PO BID Potassium Chloride (Potassium Chloride Er) 10 Meq Tab 20 MEQ PO DAILY Rifaximin (Xifaxan) 550 Mg Tab 550 MG PO BID, TAB Rosuvastatin Calcium (Rosuvastatin Calcium) 40 Mg Tab 40 MG PO DAILY Tamsulosin HCl (Tamsulosin HCl) 0.4 Mg Cap 0.4 MG PO DAILY Admission Information HPI (per Admitting provider): DATE OF ADMISSION: 03/03/2017 PRIMARY CARE DOCTOR: Dr. Baltazar. CHIEF COMPLAINT: Chest pain. History obtained from the patient and records HISTORY OF PRESENT ILLNESS: Medical history is significant for CAD status post stenting, hypertension, DM2, insulin requiring, cirrhosis secondary to nonalcoholic fatty liver disease, hyperlipidemia, history of severe aortic stenosis, chronic anemia (baseline hemoglobin of 12-13). thrombocytopenia Recent confinement in last December 2016 for hepatic encephalopathy. Today, the patient was walking up a hill when he had some achy left-sided chest pain with some shortness of breath, going to his left shoulder similar to heart attack in the past. Spontaneous resolution. No cough sx. MEDICAL HISTORY: As above. A 2D echo from October 2016 showed EF 60-65%, severe calcific aortic valve, mild MR, mild TR, mild to moderate pulmonary hypertension, PASP of 49 mmHg. Patient previously on Plavix a few years ago, discontinued per the patient preference as per records. Cardiac catheterization July 2016 showed patent coronary arteries with mild non-obstructive CAD. Last seen by [facility] (Dr. Hemphill) in December 2016. SURGERIES: He has had back surgery. HOME MEDICATIONS: As follows: NovoLog, losartan, furosemide, metoprolol, Klor-Con, tamsulosin, hydroxyzine, Lantus, ferrous gluconate, rosuvastatin, Protonix, Nitrostat, Mag-Ox, lactulose. ALLERGIES: LISINOPRIL, SIMVASTATIN. FAMILY HISTORY: Heart disease. PERSONAL AND SOCIAL HISTORY: Past tobacco abuse. 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 REVIEW OF SYSTEMS: As per HPI. All other ROS negative. PHYSICAL EXAMINATION: VITAL SIGNS: Blood pressure was noted to be initially 80/60, later 105/42, pulse rate 57, RR 18, temperature 36.6, sats 95 on room air. GENERAL: Noted to be obese, comfortable, looks younger for stated age. No respiratory distress. SKIN: Pallor. HEENT: Pale palpebral conjunctivae. Dry mucosa. NECK: Short neck. LUNGS: Decreased breath sounds. HEART: Systolic murmur. ABDOMEN: Some distention, nontender, abd hernia noted. EXTREMITIES: No edema. no tenderness NEUROLOGIC: No gross focality. LABORATORY DATA: Hemoglobin was noted to be 12, hematocrit 34, white cells 13.2, platelets noted to be 139. Sodium 140, potassium 4.3, chloride 109, CO2 25, BUN 20, creatinine 1.5, glucose of 193, trop 0.10 Hemoglobin A1c November 2016 was 7.5. IMAGING DATA: Chest x-ray, no acute pathology. EKG as per my interpretation, rate of 55, sinus bradycardia, LVH. TW flattening /inversion in the inferior leads, PRWP. ASSESSMENT: 1. Chest pain possible unstable angina history of coronary artery disease status post stenting 2. hypertension blood pressure on the lower side on arrival at the Emergency Room. 3. hyperlipidemia on statin tx 4. 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 severe aortic stenosis as per records. surgery was going to be risky as per px account 6. DM2, insulin requiring Reasonable control as of recent HgA1c. 7. past tobacco abuse 8. chronic anemia, Hg at baseline 9. ARF Observation PCU. Aspirin for now for secondary CAD prevention for now until ACS is ruled out. Continue home beta wesly, statin meds. Follow troponin. Cardiology consult. RE cp (Patient known to Dr. Hemphill) monitor crea response to IVF, hold ARB until crea normal Basal insulin, ISS BG goal 140-180 DVT prophylaxis, SCDs RE thrombocytopenia Full code. Hospital Course Chest pain Possible unstable angina History of coronary artery disease status post stenting and h/o aortic stenosis as per records. Aspirin for now for secondary CAD prevention for now until Continue home beta wesly, statin Serial Ivan are negative for any ACS EKG-SB,nonspecific ST-T Changes Recent ECHO::January 26, 2017 [facility]TE [facility] The left ventricular cavity is small. The LV wall thickness is mildly increased (concentric). Left ventricular wall motion if hyperdynamic. Calculated LV ejection Fraction = 65-70% (biplane method of discs). Severe aortic valve stenosis is present. There is a focal area of calcification on the anterior mitral valve leaflet. The estimated pulmonary artery systolic pressure is 38-40mm Hg. Compared to previous study dated 04/26/2017, mean aortic valve pressure gradient is now 46 mmHg, with peak aortic valve velocity approximately 4.38 m/sec. . Mild pulmonary hypertension is present. Cardiology consult.-appreciate Input Will need close follow up with cardiology-will make appointment in 2 weeks Hypertension Blood pressure on the lower side on arrival at the Emergency Room. Remains stable Hyperlipidemia on statin tx Cirrhosis secondary to nonalcoholic liver disease No overt decompensation DM2, insulin requiring Reasonable control as of recent HgA1c. Basal insulin, ISS BG goal 140-180 Chronic anemia, Hg at baseline Hb stable ARF Monitor crea response to IVF, hold ARB until crea normal Creatinine -normalized DVT prophylaxis, SCDs RE thrombocytopenia Full code. DISPOSITION Discharge home today Total time spent on discharge = 35 minutes This includes examination of the patient, discharge planning, medication reconciliation, and communication with other providers. Discharge Instructions Date of Service Mar 05, 2017. Admission Reason for Admission: Chest Pain Discharge Discharge Diagnosis / Problem: Chest Pain-No ACS,Aortic Stenosis Discharge Goals Goal(s): Prevent Disease Progression Activity Recommendations Activity Limitations: resume your previous activity (No strenuous activity) . Instructions / Follow-Up Instructions / Follow-Up Your Doctors office and Cardiology office will call with appointment Current Hospital Diet Patient's current hospital diet: Diabetes Type 2 Diet Discharge Diet Recommended Diet: AHA Diet (Heart Healthy), Diabetes Type 2 Diet Pending Studies Studies pending at discharge: no Medical Emergencies . Who to Call and When: Medical Emergencies: If at any time you feel your situation is an emergency, please call 911 immediately. . Non-Emergent Contact Non-Emergency issues call your: Primary Care Provider . Past History Medical & Surgical History: (1) Chest pain (2) Hiatal hernia (3) GERD (gastroesophageal reflux disease) (4) Diabetes mellitus type 2 in obese (5) HTN (hypertension) (6) CAD (coronary artery disease) (7) Aortic stenosis (8) Cirrhosis of liver not due to alcohol (9) History of colonoscopy (10) History of cardiac catheterization (11) H/O hemorrhoidectomy (12) History of lumbar laminectomy . "Provider Documentation" section prepared by Precious Ragland. . VTE Core Measure Inpt VTE Proph given/why not?: SCD's <Electronically signed by Precious Ragland M.D.> Signed: 03/05/17 [id number] Additional Copies To Atiya Baltazar D.O.
[2017-04-28] MEDS ORDERED: LCTL45 PO (15:54)
[2017-06-10] MEDS ORDERED: DXY100 PO (18:01)
[2017-06-10] MEDS ORDERED: DLCS PR (18:01)
[2017-06-10] MEDS ORDERED: SENN8.6T7 PO (18:01)
[2017-06-10] MEDS ORDERED: ASPEC81 PO (18:01)
== END 2017-03-05 13:57 | disposition home or self-care (01) ==
LOC: EDBD 17:52 → C.EDC 17:53 → C.2T 21:03 → ENRESERV 21:11
PROVIDERS: ADMIT Internal Medicine; ATTEND Internal Medicine
DX: R07.9 Chest pain, unspecified (principal); I25.10 Atherosclerotic heart disease of native coronary artery without angina pectoris; E78.5 Hyperlipidemia, unspecified; K21.9 Gastro-esophageal reflux disease without esophagitis; K75.81 Nonalcoholic steatohepatitis (NASH); I35.0 Nonrheumatic aortic (valve) stenosis; I10 Essential (primary) hypertension; I95.9 Hypotension, unspecified; D64.9 Anemia, unspecified; D69.6 Thrombocytopenia, unspecified; N17.9 Acute kidney failure, unspecified; D63.8 Anemia in other chronic diseases classified elsewhere; E11.22 Type 2 diabetes mellitus with diabetic chronic kidney disease; Z87.891 Personal history of nicotine dependence; Z79.4 Long term (current) use of insulin; Z91.19 Patient's noncompliance with other medical treatment and regimen; Z79.899 Other long term (current) drug therapy

== ENCOUNTER 2017-03-09 23:26 | Inpatient (IN) | payer OTHER ==
[~2017-03-09] VITALS: Ht 160 cm; Wt 86.2 kg
[~2017-03-09 23:26] MED LIST changes: +CZR25 PO; +FLM4 PO; +HYDR1CAP85 PO; +INSDGIPEN SC; +ISOS30TA35 PO; +LACT10SO17 PO; +LPR25 PO; +LSX40 PO; +NVLGI/PEN SC; -NVLGIPEN SC; +PANT40TA2 PO; +POTA-74 PO; -POTA10TA32 PO; -PRVHFAIN INH; +ROSU40TA18 PO; +VNTHFA/IN INH; -VST25HP PO; -ZOLP5TAB PO
[2017-03-10 00:28] LABS: BASO % 0.4 %; BASO ABS # 0.03 K/uL (0-0.2); COMPLETE YES; EOS % 2.7 %; HEMATOCRIT 34.3 % (42-52); IG% 0.3 %; LYMPH % 19.4 %; LYMPH ABS # 1.43 K/uL (1.2-3.4); MEAN CORPUSCULAR HEMOGLOBIN 31.1 pg (25-34); MEAN CORPUSCULAR HGB CONC 33.8 g/dl (32-36); MEAN PLATELET VOLUME 11.4 fL (7.4-10.4); NEUT % 65.2 %; PLATELET COUNT 113 K/uL (130-400); RED BLOOD COUNT 3.73 M/uL (4.7-6.1); WHITE BLOOD COUNT 7.36 K/uL (4.8-10.8)
[2017-03-10 00:36] LABS: INR 1.1 (0.9-1.1); PARTIAL THROMBOPLASTIN RATIO 1.1; PROTHROMBIN TIME (PATIENT) 11.7 SECONDS (9.0-12.0)
--- NOTE | 2017-03-10 00:39 | EMERGENCY ROOM VISIT NOTE ---
History Report prepared by Pranav: Anna Marie Dumont Under the Supervision of: Dr. Sandie Henson D.O. First contact with patient: 00:17 Chief Complaint: ABNORMAL LABS Stated Complaint: HIGH BLOOD SUGAR, LOW LIVER FUNCTION History of Present Illness The patient is a 76 year old male who presents to the Emergency Room for concerns about abnormal blood work today. The patient had outpatient labs today which showed ammonia level of 120 and elevated liver enzymes. He was referred to the Emergency Room. As per family, the patient has had increased confusion. The patient complains of urinary incontinence. He had some suprapubic abdominal pain which has now resolved. He currently denies any pain. He denies chest pain , shortness of breath, or any other complaints. Source of History: patient, family Onset: today Position: other (global) Symptom Intensity: No pain Quality: other (abnormal blood work) Associated Symptoms: + abdominal pain (resolved), No chest pain, No SOB Review of Systems See HPI for pertinent positives & negatives. A total of 10 systems reviewed and were otherwise negative. 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 (6) Confusion (7) Diabetes mellitus type 2 in obese (8) Diverticulosis (9) Dyslipidemia (10) GERD (gastroesophageal reflux disease) (11) GI bleed (12) Hepatic encephalopathy (13) Hiatal hernia (14) HTN (hypertension) (15) Kidney stone (16) Noncompliance (17) Portal hypertensive gastropathy (18) Transaminitis Surgical Problems: (1) H/O hemorrhoidectomy (2) History of cardiac catheterization (3) History of colonoscopy (4) History of lumbar laminectomy Family History FHx: heart disease FATHER ( from [place] age 65) BROTHER ([place] in his 40s) Social History Smoking Status: Former Smoker Alcohol Use: none Housing Status: lives with family Occupation Status: retired Current/Historical Medications Scheduled Empagliflozin (Jardiance), 10 MG PO QAM Ferrous Gluconate (Ferrous Gluconate), 324 MG PO BID Furosemide (Furosemide), 40 MG PO DAILY Insulin Aspart (Novolog Flexpen), 45 UNITS SC AC Insulin Glargine (Lantus Solostar), 45 UNITS SC AMPM Isosorbide Mononitrate Ext Rel (Imdur Ext Rel), 30 MG PO QAM Lactulose (Chronulac), 30 ML PO TID Losartan Potassium (Losartan Potassium), 25 MG PO DAILY Magnesium Oxide (Mag-Ox), 400 MG PO BID Metoprolol Tartrate (Lopressor), 25 MG PO BID Pantoprazole (Pantoprazole Sodium), 40 MG PO BID Potassium Chloride (Potassium Chloride Er), 20 MEQ PO DAILY Rifaximin (Xifaxan), 550 MG PO BID Rosuvastatin Calcium (Rosuvastatin Calcium), 40 MG PO DAILY Tamsulosin HCl (Tamsulosin HCl), 0.4 MG PO DAILY Scheduled PRN Albuterol Hfa (Ventolin Hfa), 2 PUFFS INH QID PRN for Cough Hydroxyzine Pamoate (Vistaril), 25 MG PO HS PRN for Anxiety Nitroglycerin (Nitrostat), 0.4 MG UT UD PRN for Chest Pain Allergies Coded Allergies: PRASHANT Inhibitors (Verified Allergy, Severe, ANGIOEDEMA from 10/10/11 ED adm, 03/10/17) Lisinopril (Verified Allergy, Severe, Edema - face, lips and tongue, ) Simvastatin (Verified Allergy, Unknown, RASH, SORE ALL OVER. 2013: Uses Crestor, 03/10/17) Physical Exam Vital Signs Date Time Temp Pulse Resp B/P (MAP) Pulse Ox O2 Delivery O2 Flow Rate FiO2 03/10/17 02:32 74 18 131/54 96 Room Air 03/10/17 00:41 70 03/09/17 23:37 36.7 74 16 96/46 95 Room Air Physical Exam General: Confused, easily follows commands. HEENT: Head - normocephalic and atraumatic. Pupils are equal, round, and reactive to light. Extraocular eye muscles are intact and sclera are anicteric. Nose - moist nasal mucosa without discharge. Mouth - moist buccal mucosa. Oropharynx is nonerythematous and there is no tonsillar exudate or edema noted. Neck: Supple; no JVD, nuchal rigidity, cervical lymphadenopathy, or auscultated bruits. Heart: Regular rate and rhythm. There is a normal S1 and S2 with no murmurs, clicks, or gallops appreciated. Lungs: Clear to auscultation bilaterally with no wheezes, rales, or rhonchi. Abdomen: Soft, completely nontender, nondistended, with good bowel sounds. There are no palpable pulsatile masses or hepatosplenomegaly. There is no guarding, rigidity, or rebound noted. Extremities: No evidence of cyanosis, clubbing. There are easily palpable peripheral pulses. 1+ edema on bilateral lower extremities. Neuro:The patient is awake and alert, oriented to person, place, and situation. The patient did not know the date or month. Muscle strength is 5/5 in all 4 extremities. The patient has equal manager utilization strength and equal pedal push and pull. There are no cerebellar signs. Medical Decision & Procedures Laboratory Results 03/09/17 23:50 Red Blood Count 3.73, Mean Corpuscular Volume 92.0, Mean Corpuscular Hemoglobin 31.1, Mean Corpuscular Hemoglobin Concent 33.8, Mean Platelet Volume 11.4, Neutrophils (%) (Auto) 65.2, Lymphocytes (%) (Auto) 19.4, Monocytes (%) (Auto) 12.0, Eosinophils (%) (Auto) 2.7, Basophils (%) (Auto) 0.4, Neutrophils # (Auto ) 4.80, Lymphocytes # (Auto) 1.43, Monocytes # (Auto) 0.88, Eosinophils # (Auto ) 0.20, Basophils # (Auto) 0.03 03/09/17 23:50 Test 03/09/17 23:50 03/10/17 00:07 03/10/17 00:20 03/10/17 00:30 White Blood Count 7.36 K/uL (4.8-10.8) Red Blood Count 3.73 M/uL (4.7-6.1) Hemoglobin 11.6 g/dL (14.0-18.0) Hematocrit 34.3 % (42-52) Mean Corpuscular Volume 92.0 fL (80-100) Mean Corpuscular Hemoglobin 31.1 pg (25-34) Mean Corpuscular Hemoglobin Concent 33.8 g/dl (32-36) Platelet Count 113 K/uL (130-400) Mean Platelet Volume 11.4 fL (7.4-10.4) Neutrophils (%) (Auto) 65.2 % Lymphocytes (%) (Auto) 19.4 % Monocytes (%) (Auto) 12.0 % Eosinophils (%) (Auto) 2.7 % Basophils (%) (Auto) 0.4 % Neutrophils # (Auto) 4.80 K/uL (1.4-6.5) Lymphocytes # (Auto) 1.43 K/uL (1.2-3.4) Monocytes # (Auto) 0.88 K/uL (0.11-0.59) Eosinophils # (Auto) 0.20 K/uL (0-0.5) Basophils # (Auto) 0.03 K/uL (0-0.2) RDW Standard Deviation 55.2 fL (36.4-46.3) RDW Coefficient of Variation 16.9 % (11.5-14.5) Immature Granulocyte % (Auto) 0.3 % Immature Granulocyte # (Auto) 0.02 K/uL (0.00-0.02) Prothrombin Time 11.7 SECONDS (9.0-12.0) Prothromb Time International Ratio 1.1 (0.9-1.1) Activated Partial Thromboplast Time 27.3 SECONDS (21.0-31.0) Partial Thromboplastin Ratio 1.1 Anion Gap 8.0 mmol/L (3-11) Est Creatinine Clear Calc Drug Dose 39.4 ml/min Estimated GFR () 51.0 Estimated GFR (Non- 44.0 BUN/Creatinine Ratio 16.8 (10-20) Calcium Level 9.0 mg/dl (8.5-10.1) Magnesium Level 2.6 mg/dl (1.8-2.4) Total Bilirubin 1.0 mg/dl (0.2-1) Direct Bilirubin 0.3 mg/dl (0-0.2) Aspartate Amino Transf (AST/SGOT) 67 U/L (15-37) Alanine Aminotransferase (ALT/SGPT) 49 U/L (12-78) Alkaline Phosphatase 232 U/L (45-117) Total Protein 6.6 gm/dl (6.4-8.2) Albumin 3.2 gm/dl (3.4-5.0) Lipase 409 U/L (73-393) Bedside Lactic Acid Venous 1.59 mmol/L (0.90-1.70) Urine Color YELLOW Urine Appearance CLEAR (CLEAR) Urine pH 5.0 (4.5-7.5) Urine Specific [place] 1.028 (1.000-1.030) Urine Protein NEG (NEG) Urine Glucose (UA) 3+ (NEG) Urine Ketones NEG (NEG) Urine Occult Blood NEG (NEG) Urine Nitrite NEG (NEG) Urine Bilirubin NEG (NEG) Urine Urobilinogen NEG (NEG) Urine Leukocyte Esterase NEG (NEG) Ammonia 92.0 umol/L (11-32) Laboratory results per my review. ED Course 0017: Past medical records reviewed. The patient was evaluated in room B07. A complete history and physical exam was performed. Laboratory studies were drawn as above. 0159: Upon reevaluation, I discussed findings and results with him. He verbalized agreement of the treatment plan. I spoke with Dr. Jewell of the [facility]. The patient will be evaluated for further management and care. Medical Decision The patient presents to the Emergency Room for concerns about abnormal blood work. Differential diagnosis includes but is not limited to elevated ammonia level, UTI, electrolyte abnormality. His labs showed no leucocytosis, anemia with hemoglobin of 11.6 which is baseline for him, BUN of 25, creatinine 1.5, glucose 103, magnesium 2.6, ammonium 92, lipase 409. I attest that I have personally reviewed the patient's current medication list. Patient was found to have low blood pressure on screening and does not require follow-up. The patient has a history of cirrhosis with recurrent episodes of hepatic encephalopathy. The patient's family has noticed studies become more confused. He had some follow-up blood work obtained earlier today which showed an ammonia level of 120. The patient also has evidence of renal insufficiency 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. [facility] I will discuss the case with them Consults Time Called: 145 Consulting Physician: Dr. Jewell of the [facility] Returned Call: [phone] Jewell of the [facility]. Impression Primary Impression: Hepatic encephalopathy Additional Impressions: Renal insufficiency Hypomagnesemia Scribe Attestation The scribe's documentation has been prepared under my direction and personally reviewed by me in its entirety. I confirm that the note above accurately reflects all work, treatment, procedures, and medical decision making performed by me. Departure Information Dispostion Being Evaluated By Hospitalist Referrals No Doctor, Assigned (PCP) Patient Instructions My [facility] Problem Qualifiers
[2017-03-10 00:40] LABS: URINE APPEARANCE CLEAR (CLEAR); URINE BILIRUBIN NEG (NEG); URINE COLOR YELLOW; URINE NITRITE NEG (NEG); URINE SPECIFIC GRAVITY 1.028 (1.000-1.030); UROBILINOGEN NEG (NEG)
[2017-03-10 00:45] LABS: MANUAL MICROSCOPIC REQUIRED? NO; REVIEW REQ? NO
[2017-03-10 00:51] LABS: BUN/CREATININE RATIO 16.8 (10-20); CREATININE 1.5 mg/dl (0.60-1.40); MAGNESIUM 2.6 mg/dl (1.8-2.4); POTASSIUM 3.8 mmol/L (3.5-5.1)
[2017-03-10] MEDS ORDERED: OXYCODONE HCL IR 5 MG TAB (IMMEDIATE RELEASE) PO STA (01:58)
[2017-03-10] MEDS ORDERED: ONDANSETRON INJ 2 MG/ML 2 ML VIAL IV PRN (03:00)
[2017-03-10] MEDS ORDERED: SODIUM CHLORIDE 0.9% 1000ML 1,000 ML IV SCH (03:30)
[2017-03-10] MEDS ORDERED: hydrOXYzine HCL 25 MG TAB PO PRN (03:30)
[2017-03-10] MEDS ORDERED: NITROGLYCERIN 0.4 MG SL PER TAB CHARGE UT PRN (03:30)
[2017-03-10 03:40] VITALS: Ht 160 cm; Wt 86.2 kg
[2017-03-10] MEDS ORDERED: DEXTROSE 50% 50 ML SYR IV PRN (03:45)
[2017-03-10] MEDS ORDERED: GLUCAGON FOR INJ 1 MG VIAL SQ PRN (03:45)
[2017-03-10] MEDS ORDERED: GLUCOSE 10 TABS/TUBE PO PRN (03:45)
[2017-03-10] MEDS ORDERED: GLUCOSE 40% GEL 15 GM TUBE PO PRN (03:45)
--- NOTE | 2017-03-10 07:41 | History and Physical ---
History & Physical Date & Time of Service: Mar 10, 2017 at 02:58 Chief Complaint: High Blood Sugar, Low Liver Function Primary Care Physician: Atiya Baltazar D.O. History of Present Illness Source: patient, clinic records, hospital records 76 year old male with PMHx of KLEIN cirrhosis, IDDM, CAD s/p stent, CKd stage 3 , Severe , BPH, GERD, and CLAUDIO presents to the ED at the request of his PCP for abnormal lab work. Pt was recently admitted and discharged from [facility] 0n To 03/05. He had a follow up hospital appointment with PCP. He got a phone call around 11PM from Dr. Case tolentino go to the ER because outpatient labs showed ammonia level of 120 and elevated liver enzymes. As per family, the patient seems to be confused and it is getting worst. Also pt has been feeling tired lately with low energy. He also complaints of urinary incontinence. Patient reports currently he feels well. He denies fevers, chills, URI symptoms , chest pain, SOB, nausea, vomiting, diarrhea, dysuria, calf pain and edema. In the ED VS are stable, Ammonia level is 92. He is resting comfortably. 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 (5) Diabetes mellitus type 2 in obese Status: Chronic (6) Diverticulosis Status: Chronic (7) Dyslipidemia Status: Chronic (8) GERD (gastroesophageal reflux disease) Status: Chronic (9) GI bleed Status: Chronic (10) Hiatal hernia Status: Chronic (11) HTN (hypertension) Status: Chronic (12) Kidney stone Status: Resolved (13) Portal hypertensive gastropathy Status: Chronic (14) Transaminitis Status: Chronic Surgical Problems: (1) H/O hemorrhoidectomy Status: Resolved (2) History of cardiac catheterization Status: Resolved (3) History of colonoscopy Status: Resolved (4) History of lumbar laminectomy Status: Resolved Family History FHx: heart disease FATHER ( from [place] age 65) BROTHER ([place]AB[place] in his 40s) Social History Smoking Status: Former Smoker Alcohol Use: none Drug Use: none Housing status: lives alone Occupational Status: retired Immunizations History of Influenza Vaccine: Yes Influenza Vaccine Date: Jun 08, 2016 History of Tetanus Vaccine?: Yes Tetanus Immunization Date: Nov 30, 2007 History of Pneumococcal: Yes Pneumococcal Date: Mar 19, 2015 Allergies Coded Allergies: PRASHANT Inhibitors (Verified Allergy, Severe, ANGIOEDEMA from 10/10/11 ED adm, 03/10/17) Lisinopril (Verified Allergy, Severe, Edema - face, lips and tongue, ) Simvastatin (Verified Allergy, Unknown, RASH, SORE ALL OVER. 2013: Uses Crestor, 03/10/17) Home Medications Scheduled Empagliflozin (Jardiance), 10 MG PO QAM Ferrous Gluconate (Ferrous Gluconate), 324 MG PO BID Furosemide (Furosemide), 40 MG PO DAILY Insulin Aspart (Novolog Flexpen), 45 UNITS SC AC Insulin Glargine (Lantus Solostar), 45 UNITS SC AMPM Isosorbide Mononitrate Ext Rel (Imdur Ext Rel), 30 MG PO QAM Lactulose (Chronulac), 30 ML PO TID Losartan Potassium (Losartan Potassium), 25 MG PO DAILY Magnesium Oxide (Mag-Ox), 400 MG PO BID Metoprolol Tartrate (Lopressor), 25 MG PO BID Pantoprazole (Pantoprazole Sodium), 40 MG PO BID Potassium Chloride (Potassium Chloride Er), 20 MEQ PO DAILY Rifaximin (Xifaxan), 550 MG PO BID Rosuvastatin Calcium (Rosuvastatin Calcium), 40 MG PO DAILY Tamsulosin HCl (Tamsulosin HCl), 0.4 MG PO DAILY Scheduled PRN Albuterol Hfa (Ventolin Hfa), 2 PUFFS INH QID PRN for Cough Hydroxyzine Pamoate (Vistaril), 25 MG PO HS PRN for Anxiety Nitroglycerin (Nitrostat), 0.4 MG UT UD PRN for Chest Pain Review of Systems Constitutional: + fatigue, No fever, No chills Eyes: No worsening of vision, No eye pain ENT: No hearing loss, No nasal symptoms Respiratory: + shortness of breath, No cough, No sputum, No wheezing Cardiovascular: No chest pain, No edema, No claudication, No palpitations Abdomen: No pain, No vomiting, No diarrhea Musculoskeletal: No calf pain Genitourinary - Male: + urinary incontinence, No dysuria Neurologic: No memory loss, No paralysis Psychiatric: No substance abuse Endocrine: + fatigue Hematologic / Lymphatic: No night sweats Integumentary: No rash, No itch Physical Exam Vital Signs Date Time Temp Pulse Resp B/P (MAP) Pulse Ox O2 Delivery O2 Flow Rate FiO2 03/10/17 02:32 74 18 131/54 96 Room Air 03/10/17 00:41 70 03/09/17 23:37 36.7 74 16 96/46 95 Room Air General Appearance: WD/WN, no apparent distress Head: normocephalic, atraumatic Eyes: normal inspection, EOMI ENT: normal ENT inspection, hearing grossly normal Neck: supple, no JVD Respiratory/Chest: normal breath sounds, no respiratory distress, no accessory muscle use Cardiovascular: no JVD, + systolic murmur Abdomen/GI: normal bowel sounds, non tender, + pertinent finding (mild distention) Back: no CVA tenderness Extremities/Musculoskelatal: no calf tenderness, normal range of motion Neurologic/Psych: no motor/sensory deficits, alert, normal mood/affect Skin: warm/dry, no rash Diagnostics Laboratory Results Results Past 24 Hours Test 03/09/17 23:50 03/10/17 00:07 03/10/17 00:20 03/10/17 00:30 Range/Units White Blood Count 7.36 4.8-10.8 K/uL Red Blood Count 3.73 4.7-6.1 M/uL Hemoglobin 11.6 14.0-18.0 g/dL Hematocrit 34.3 42-52 % Mean Corpuscular Volume 92.0 80-100 fL Mean Corpuscular Hemoglobin 31.1 25-34 pg Mean Corpuscular Hemoglobin Concent 33.8 32-36 g/dl Platelet Count 113 130-400 K/uL Mean Platelet Volume 11.4 7.4-10.4 fL Neutrophils (%) (Auto) 65.2 % Lymphocytes (%) (Auto) 19.4 % Monocytes (%) (Auto) 12.0 % Eosinophils (%) (Auto) 2.7 % Basophils (%) (Auto) 0.4 % Neutrophils # (Auto) 4.80 1.4-6.5 K/uL Lymphocytes # (Auto) 1.43 1.2-3.4 K/uL Monocytes # (Auto) 0.88 0.11-0.59 K/uL Eosinophils # (Auto) 0.20 0-0.5 K/uL Basophils # (Auto) 0.03 0-0.2 K/uL RDW Standard Deviation 55.2 36.4-46.3 fL RDW Coefficient of Variation 16.9 11.5-14.5 % Immature Granulocyte % (Auto) 0.3 % Immature Granulocyte # (Auto) 0.02 0.00-0.02 K/uL Prothrombin Time 11.7 9.0-12.0 SECONDS Prothromb Time International Ratio 1.1 0.9-1.1 Activated Partial Thromboplast Time 27.3 21.0-31.0 SECONDS Partial Thromboplastin Ratio 1.1 Sodium Level 144 136-145 mmol/L Potassium Level 3.8 3.5-5.1 mmol/L Chloride Level 110 98-107 mmol/L Carbon Dioxide Level 26 21-32 mmol/L Anion Gap 8.0 3-11 mmol/L Blood Urea Nitrogen 25 7-18 mg/dl Creatinine 1.50 0.60-1.40 mg/dl Est Creatinine Clear Calc Drug Dose 39.4 ml/min Estimated GFR () 51.0 Estimated GFR (Non- 44.0 BUN/Creatinine Ratio 16.8 10-20 Random Glucose 103 70-99 mg/dl Calcium Level 9.0 8.5-10.1 mg/dl Magnesium Level 2.6 1.8-2.4 mg/dl Total Bilirubin 1.0 0.2-1 mg/dl Direct Bilirubin 0.3 0-0.2 mg/dl Aspartate Amino Transf (AST/SGOT) 67 15-37 U/L Alanine Aminotransferase (ALT/SGPT) 49 12-78 U/L Alkaline Phosphatase 232 45-117 U/L Total Protein 6.6 6.4-8.2 gm/dl Albumin 3.2 3.4-5.0 gm/dl Lipase 409 73-393 U/L Bedside Lactic Acid Venous 1.59 0.90-1.70 mmol/L Urine Color YELLOW Urine Appearance CLEAR CLEAR Urine pH 5.0 4.5-7.5 Urine Specific [place] 1.028 1.000-1.030 Urine Protein NEG NEG Urine Glucose (UA) 3+ NEG Urine Ketones NEG NEG Urine Occult Blood NEG NEG Urine Nitrite NEG NEG Urine Bilirubin NEG NEG Urine Urobilinogen NEG NEG Urine Leukocyte Esterase NEG NEG Ammonia 92.0 11-32 umol/L Impression Assessment and Plan 76 year old male presents to the ED for abnormal ammonia level. HEPATIC ENCEPHALOPATHY SECONDARY TO MEDICATION NONCOMPLIANCE H/O KLEIN CIRRHOSIS -Admit to med/surg -Ammonia level 90 on admission -Continue lactulose, Rifaximin, Lasix -No signs of SBP, afebrile, no leukocytosis -Mild elevation of AST -Repeat LFTs, Ammonia level in AM -Follows with Dr. Garcia as outpatient URINARY FREQUENCY -in setting of BPH UA negative -continue Flomax IDDM -A1c 7.5 -Lantus at 45 units BID -Hold PO med -SSI coverage -BSG AC HS -consistent carb diet HLD -continue statin CAD S/P STENT, AORTIC STENOSIS -Stable, no complaints -continue BB, Statin, Imdur, ARB, CLAUDIO -Hgb stable -continue Iron supplementation BPH -continue Flomax GERD -continue PPI Acute GLENYS on CKD STAGE 3 -Creatine on Admission 1.5 -Crea 1.3 baseline -avoid nephrotoxic agents -Will give gentle IVF - Hold lasix for now DVT PROPHYLAXIS: Subq heparin CODE STATUS DNR Level of Care Med/Surg Resuscitation Status DO NOT RESUSCITATE VTE Prophylaxis VTE Risk Assessment Done? Y/N: Yes Risk Level: Moderate
[2017-03-10 07:42] VITALS: BP 102/68; PULSE 72; TEMP 36.9; O2SAT 97
[2017-03-10] MEDS ORDERED: ALBUT/IPRATROP 3MG/0.5MG NEB 3 ML VIAL INH PRN (07:45)
[2017-03-10 07:50] VITALS: O2SAT 97
[2017-03-10] MEDS ORDERED: LACTULOSE SYRUP 20 GM/30 ML UDC PO SCH (09:00)
[2017-03-10] MEDS: ROSUVASTATIN CALCIUM 20 MG TAB PO SCH (10:04)
[2017-03-10] MEDS: TAMSULOSIN HCL 0.4 MG CAP PO SCH (10:05)
[2017-03-10] MEDS: FERROUS GLUCONATE 324 MG TAB PO SCH ×2 (10:05→21:20)
[2017-03-10] MEDS: ISOSORBIDE MONONITRATE 30 MG TABCR PO SCH (10:05)
[2017-03-10] MEDS: METOPROLOL TARTRATE 25 MG TAB PO SCH ×2 (10:05→21:21)
[2017-03-10] MEDS: RIFAXIMIN TAB 550 MG TAB PO SCH ×2 (10:06→21:22)
[2017-03-10] MEDS: PANTOprazole SOD 40 MG TAB PO SCH ×2 (10:06→21:22)
[2017-03-10] MEDS: MAGNESIUM OXIDE 400 MG TAB PO SCH ×2 (10:06→21:22)
[2017-03-10] MEDS: INSULIN ASPART 100 UNITS/ML 3 ML PEN SC SCH ×4 (10:11→22:34)
[2017-03-10] MEDS: INSULIN GLARGINE SOLOSTAR 100 UNITS/ML 3 ML PEN SC SCH ×2 (10:11→21:27)
[2017-03-10] MEDS: HEPARIN SOD 5000 UNIT/0.5 ML CARP SQ SCH ×2 (10:12→21:29)
--- NOTE | 2017-03-10 11:24 | Progress Note ---
Internal Med Progress Note Date of Service: Mar 10, 2017. Provider Documentation: SUBJECTIVE: Seen and examined at bedside. Answers questions appropriately, no confusion Denies abd pain, SOB, che4st pain. Feels tired. Has 2 BMs yesterday, none today. Offers no other complaints OBJECTIVE: Vital Signs-as noted below Physical Exam: General Appearance:Moderately built and nourished, no apparent distress Head: normocephalic, Atraumatic Eyes: normal inspection, EOMI, PERRLA, +Icterus Neck: supple, Trachea midline Respiratory/Chest: Normal breath sounds, CTA Cardiovascular: S1, S2, + systolic murmur Abdomen/GI:Soft, Non tender, Bowel sounds present, Protuberant Extremities/Musculoskelatal:normal inspection, 1+ b/L edema Neurologic/Psych:grossly no focal neurological deficits Skin: normal color, warm Lab data as noted below. ASSESSMENT & PLAN: Patient is a 76 yr old male presents to the ED for abnormal ammonia level. HEPATIC ENCEPHALOPATHY SECONDARY TO MEDICATION NONCOMPLIANCE H/O KLEIN CIRRHOSIS Ammonia level:90 Continue lactulose, Rifaximin Plan to resume Lasix in AM No signs of SBP, afebrile, no leukocytosis, denies abd pain Chronic transaminitis Follows with Dr. Garcia as outpatient URINARY FREQUENCY In setting of BPH UA negative for UTI continue Flomax IDDM A1c: 7.5 Continue Lantus, ISS Hold PO meds BSG AC HS HLD continue statin CAD S/P STENT, AORTIC STENOSIS Stable, no complaints continue BB, Statin, Imdur, ARB, CLAUDIO Hgb stable continue Iron supplementation BPH continue Flomax GERD continue PPI Acute GLENYS on CKD III Creatine on Admission 1.5 Cr: 1.3 baseline avoid nephrotoxic agents Continue IVF Hold lasix for now Monitor renal function DVT PX: SQ heparin CODE STATUS DNR Disposition: PT/OT eval bibliographic services specialist consulted Vital Signs: Date Time Temp Pulse Resp B/P (MAP) Pulse Ox O2 Delivery O2 Flow Rate FiO2 03/10/17 08:00 Room Air 03/10/17 07:50 97 Room Air 03/10/17 07:42 36.9 72 12 102/68 (79) 97 Room Air 03/10/17 03:40 Room Air 03/10/17 03:40 Room Air 03/10/17 03:23 73 16 126/61 97 03/10/17 02:32 74 18 131/54 96 Room Air 03/10/17 00:41 70 03/09/17 23:37 36.7 74 16 96/46 95 Room Air Lab Results: Results Past 24 Hours Test 03/09/17 23:50 03/10/17 00:07 03/10/17 00:20 03/10/17 00:30 Range/Units White Blood Count 7.36 4.8-10.8 K/uL Red Blood Count 3.73 4.7-6.1 M/uL Hemoglobin 11.6 14.0-18.0 g/dL Hematocrit 34.3 42-52 % Mean Corpuscular Volume 92.0 80-100 fL Mean Corpuscular Hemoglobin 31.1 25-34 pg Mean Corpuscular Hemoglobin Concent 33.8 32-36 g/dl Platelet Count 113 130-400 K/uL Mean Platelet Volume 11.4 7.4-10.4 fL Neutrophils (%) (Auto) 65.2 % Lymphocytes (%) (Auto) 19.4 % Monocytes (%) (Auto) 12.0 % Eosinophils (%) (Auto) 2.7 % Basophils (%) (Auto) 0.4 % Neutrophils # (Auto) 4.80 1.4-6.5 K/uL Lymphocytes # (Auto) 1.43 1.2-3.4 K/uL Monocytes # (Auto) 0.88 0.11-0.59 K/uL Eosinophils # (Auto) 0.20 0-0.5 K/uL Basophils # (Auto) 0.03 0-0.2 K/uL RDW Standard Deviation 55.2 36.4-46.3 fL RDW Coefficient of Variation 16.9 11.5-14.5 % Immature Granulocyte % (Auto) 0.3 % Immature Granulocyte # (Auto) 0.02 0.00-0.02 K/uL Prothrombin Time 11.7 9.0-12.0 SECONDS Prothromb Time International Ratio 1.1 0.9-1.1 Activated Partial Thromboplast Time 27.3 21.0-31.0 SECONDS Partial Thromboplastin Ratio 1.1 Sodium Level 144 136-145 mmol/L Potassium Level 3.8 3.5-5.1 mmol/L Chloride Level 110 98-107 mmol/L Carbon Dioxide Level 26 21-32 mmol/L Anion Gap 8.0 3-11 mmol/L Blood Urea Nitrogen 25 7-18 mg/dl Creatinine 1.50 0.60-1.40 mg/dl Est Creatinine Clear Calc Drug Dose 39.4 ml/min Estimated GFR () 51.0 Estimated GFR (Non- 44.0 BUN/Creatinine Ratio 16.8 10-20 Random Glucose 103 70-99 mg/dl Calcium Level 9.0 8.5-10.1 mg/dl Magnesium Level 2.6 1.8-2.4 mg/dl Total Bilirubin 1.0 0.2-1 mg/dl Direct Bilirubin 0.3 0-0.2 mg/dl Aspartate Amino Transf (AST/SGOT) 67 15-37 U/L Alanine Aminotransferase (ALT/SGPT) 49 12-78 U/L Alkaline Phosphatase 232 45-117 U/L Total Protein 6.6 6.4-8.2 gm/dl Albumin 3.2 3.4-5.0 gm/dl Lipase 409 73-393 U/L Bedside Lactic Acid Venous 1.59 0.90-1.70 mmol/L Urine Color YELLOW Urine Appearance CLEAR CLEAR Urine pH 5.0 4.5-7.5 Urine Specific [place] 1.028 1.000-1.030 Urine Protein NEG NEG Urine Glucose (UA) 3+ NEG Urine Ketones NEG NEG Urine Occult Blood NEG NEG Urine Nitrite NEG NEG Urine Bilirubin NEG NEG Urine Urobilinogen NEG NEG Urine Leukocyte Esterase NEG NEG Ammonia 92.0 11-32 umol/L Test 03/10/17 07:59 Range/Units Bedside Glucose 123 70-99 mg/dl
[2017-03-10] MEDS: LACTULOSE SYRUP 30 GM/45 ML UDP PO SCH ×2 (14:04→21:20)
[2017-03-10 15:28] VITALS: BP 104/57; PULSE 67; TEMP 36.9; O2SAT 96
[2017-03-10 21:21] VITALS: BP 112/61; PULSE 66
[2017-03-10 22:28] VITALS: BP 117/65; PULSE 66; TEMP 36.7; O2SAT 96
[2017-03-10] MEDS ORDERED: NURSING VERBAL MED ORDER ONE (22:30)
[2017-03-11 07:24] VITALS: BP 117/48; PULSE 61; TEMP 36.7; O2SAT 96
[2017-03-11 07:53] LABS: BUN/CREATININE RATIO 16.2 (10-20); CALCIUM 8.8 mg/dl (8.5-10.1); CREATININE 1.2 mg/dl (0.60-1.40)
[2017-03-11] MEDS: LACTULOSE SYRUP 30 GM/45 ML UDP PO SCH ×3 (10:07→21:14)
[2017-03-11] MEDS: METOPROLOL TARTRATE 25 MG TAB PO SCH ×2 (10:08→21:00)
[2017-03-11] MEDS: ISOSORBIDE MONONITRATE 30 MG TABCR PO SCH (10:08)
[2017-03-11] MEDS: MAGNESIUM OXIDE 400 MG TAB PO SCH ×2 (10:09→21:14)
[2017-03-11] MEDS: PANTOprazole SOD 40 MG TAB PO SCH ×2 (10:09→21:14)
[2017-03-11] MEDS: FERROUS GLUCONATE 324 MG TAB PO SCH ×2 (10:10→21:14)
[2017-03-11] MEDS: ROSUVASTATIN CALCIUM 20 MG TAB PO SCH (10:10)
[2017-03-11] MEDS: TAMSULOSIN HCL 0.4 MG CAP PO SCH (10:10)
[2017-03-11] MEDS: RIFAXIMIN TAB 550 MG TAB PO SCH ×2 (10:11→21:14)
[2017-03-11] MEDS: HEPARIN SOD 5000 UNIT/0.5 ML CARP SQ SCH ×2 (10:12→21:19)
[2017-03-11] MEDS: INSULIN GLARGINE SOLOSTAR 100 UNITS/ML 3 ML PEN SC SCH ×2 (10:14→21:19)
[2017-03-11] MEDS: INSULIN ASPART 100 UNITS/ML 3 ML PEN SC SCH ×4 (10:15→21:18)
--- NOTE | 2017-03-11 13:13 | Progress Note ---
Internal Med Progress Note Date of Service: Mar 11, 2017. Provider Documentation: SUBJECTIVE: Seen and examined at bedside. More alert, awake, reports intermittent confusion. Denies abd pain, SOB, chest pain. Had 1 BM yesterday, none today. Offers no other complaints OBJECTIVE: Vital Signs-as noted below Physical Exam: General Appearance:Moderately built and nourished, no apparent distress Head: normocephalic, Atraumatic Eyes: normal inspection, EOMI, PERRLA, +Icterus Neck: supple, Trachea midline Respiratory/Chest: Normal breath sounds, CTA Cardiovascular: S1, S2, + systolic murmur Abdomen/GI:Soft, Non tender, Bowel sounds present, Protuberant Extremities/Musculoskelatal:normal inspection, 1+ b/L edema Neurologic/Psych:grossly no focal neurological deficits Skin: normal color, warm Lab data as noted below. ASSESSMENT & PLAN: Patient is a 76 yr old male presents to the ED for abnormal ammonia level. HEPATIC ENCEPHALOPATHY SECONDARY TO MEDICATION NONCOMPLIANCE H/O KLEIN CIRRHOSIS Ammonia level:90 Continue lactulose, Rifaximin, Lasix No signs of SBP, afebrile, no leukocytosis, denies abd pain Chronic transaminitis Follows with Dr. Garcia as outpatient Will give an extra dose of lactulose today URINARY FREQUENCY In setting of BPH UA negative for UTI continue Flomax IDDM A1c: 7.5 Continue Lantus, ISS Hold PO meds BSG AC HS HLD continue statin CAD S/P STENT, AORTIC STENOSIS Stable, no complaints continue BB, Statin, Imdur, ARB, CLAUDIO Hgb stable continue Iron supplementation BPH continue Flomax GERD continue PPI Acute GLENYS on CKD III Cr: 1.3 baseline avoid nephrotoxic agents Cr now at baseline DC IVF Resume lasix Monitor renal function DVT PX: SQ heparin CODE STATUS DNR Disposition: PT/OT eval enterprise services manager consulted Likely discharge home tomorrow if stable Vital Signs: Date Time Temp Pulse Resp B/P (MAP) Pulse Ox O2 Delivery O2 Flow Rate FiO2 03/11/17 08:00 Room Air 03/11/17 07:24 36.7 61 16 117/48 (71) 96 Room Air 03/10/17 23:25 Room Air 03/10/17 22:28 36.7 66 18 117/65 (82) 96 Room Air 03/10/17 21:21 66 112/61 (78) 03/10/17 15:55 Room Air 03/10/17 15:28 36.9 67 18 104/57 (73) 96 Room Air Lab Results: Results Past 24 Hours Test 03/10/17 16:55 03/10/17 20:43 03/11/17 07:15 03/11/17 08:04 Range/Units Bedside Glucose 258 251 148 70-99 mg/dl Sodium Level 143 136-145 mmol/L Potassium Level 4.0 3.5-5.1 mmol/L Chloride Level 111 98-107 mmol/L Carbon Dioxide Level 22 21-32 mmol/L Anion Gap 10.0 3-11 mmol/L Blood Urea Nitrogen 19 7-18 mg/dl Creatinine 1.20 0.60-1.40 mg/dl Est Creatinine Clear Calc Drug Dose 49.2 ml/min Estimated GFR () 66.7 Estimated GFR (Non- 57.6 BUN/Creatinine Ratio 16.2 10-20 Random Glucose 125 70-99 mg/dl Calcium Level 8.8 8.5-10.1 mg/dl Ammonia 140.0 11-32 umol/L
[2017-03-11] MEDS ORDERED: LACTULOSE SYRUP 30 GM/45 ML UDP PO ONE (13:30)
[2017-03-11] MEDS: FUROSEMIDE 40 MG TAB PO SCH (13:57)
[2017-03-11 15:17] VITALS: BP 103/56; PULSE 66; TEMP 36.8; O2SAT 96
[2017-03-11 21:13] VITALS: BP 101/67; PULSE 76
[2017-03-12 00:15] VITALS: BP 94/58; PULSE 69; TEMP 37; O2SAT 95
[2017-03-12 07:04] LABS: BUN/CREATININE RATIO 10.4 (10-20); CALCIUM 8.7 mg/dl (8.5-10.1); CREATININE 1.3 mg/dl (0.60-1.40); POTASSIUM 3.3 mmol/L (3.5-5.1)
[2017-03-12 07:50] VITALS: BP 120/70; PULSE 74; TEMP 36.9; O2SAT 95
[2017-03-12] MEDS: ISOSORBIDE MONONITRATE 30 MG TABCR PO SCH (09:00)
[2017-03-12] MEDS: METOPROLOL TARTRATE 25 MG TAB PO SCH (09:00)
[2017-03-12] MEDS: LACTULOSE SYRUP 30 GM/45 ML UDP PO SCH ×2 (09:00→12:56)
[2017-03-12] MEDS: ROSUVASTATIN CALCIUM 20 MG TAB PO SCH (09:00)
[2017-03-12] MEDS: FERROUS GLUCONATE 324 MG TAB PO SCH (09:00)
[2017-03-12] MEDS: RIFAXIMIN TAB 550 MG TAB PO SCH (09:01)
[2017-03-12] MEDS: FUROSEMIDE 40 MG TAB PO SCH (09:01)
[2017-03-12] MEDS: PANTOprazole SOD 40 MG TAB PO SCH (09:01)
[2017-03-12] MEDS: MAGNESIUM OXIDE 400 MG TAB PO SCH (09:01)
[2017-03-12] MEDS: TAMSULOSIN HCL 0.4 MG CAP PO SCH (09:01)
[2017-03-12] MEDS: INSULIN ASPART 100 UNITS/ML 3 ML PEN SC SCH ×2 (09:05→12:58)
[2017-03-12] MEDS: INSULIN GLARGINE SOLOSTAR 100 UNITS/ML 3 ML PEN SC SCH (09:06)
[2017-03-12] MEDS: HEPARIN SOD 5000 UNIT/0.5 ML CARP SQ SCH (09:06)
--- NOTE | 2017-03-12 12:38 | Progress Note ---
Internal Med Progress Note Date of Service: Mar 12, 2017. Provider Documentation: SUBJECTIVE: Seen and examined at bedside. Doing well today. confusion resolved Denies abd pain, SOB, chest pain. Had 2 BMs today. Offers no other complaints OBJECTIVE: Vital Signs-as noted below Physical Exam: General Appearance:Moderately built and nourished, no apparent distress Head: normocephalic, Atraumatic Eyes: normal inspection, EOMI, PERRLA, +Icterus Neck: supple, Trachea midline Respiratory/Chest: Normal breath sounds, CTA Cardiovascular: S1, S2, + systolic murmur Abdomen/GI:Soft, Non tender, Bowel sounds present, Protuberant Extremities/Musculoskelatal:normal inspection, 1+ b/L edema Neurologic/Psych:grossly no focal neurological deficits Skin: normal color, warm Lab data as noted below. ASSESSMENT & PLAN: Patient is a 76 yr old male presents to the ED for abnormal ammonia level. HEPATIC ENCEPHALOPATHY SECONDARY TO MEDICATION NONCOMPLIANCE H/O KLEIN CIRRHOSIS Ammonia levels improved Clinically no confusion Continue lactulose, Rifaximin, Lasix No signs of SBP, afebrile, no leukocytosis, denies abd pain Chronic transaminitis Follows with Dr. Garcia as outpatient URINARY FREQUENCY In setting of BPH UA negative for UTI continue Flomax IDDM A1c: 7.5 Continue Lantus, ISS Hold PO meds BSG AC HS HLD continue statin CAD S/P STENT, AORTIC STENOSIS Stable, no complaints continue BB, Statin, Imdur, ARB, CLAUDIO Hgb stable continue Iron supplementation BPH continue Flomax GERD continue PPI Acute GLENYS on CKD III Cr: 1.3 baseline avoid nephrotoxic agents Cr now at baseline S/P IVF Resumed lasix Monitor renal function DVT PX: SQ heparin CODE STATUS DNR Disposition: PT/OT eval customer services supervisor consulted Plan to discharge home today Follow up with on 03/15/17 at 12:45pm Follow up with your microchip specialist in 2 weeks as advised Seek immediate medical attention if your symptoms reoccur or worsen Vital Signs: Date Time Temp Pulse Resp B/P (MAP) Pulse Ox O2 Delivery O2 Flow Rate FiO2 03/12/17 07:50 36.9 74 16 120/70 (87) 95 Room Air 03/12/17 07:34 Room Air 03/12/17 00:15 37.0 69 18 94/58 (70) 95 Room Air 03/11/17 23:30 Room Air 03/11/17 21:13 76 101/67 (78) 03/11/17 15:17 36.8 66 18 103/56 (72) 96 Room Air 03/11/17 15:15 Room Air Lab Results: Results Past 24 Hours Test 03/11/17 17:04 03/11/17 21:00 03/12/17 06:05 03/12/17 08:31 Range/Units Bedside Glucose 276 295 170 70-99 mg/dl Sodium Level 141 136-145 mmol/L Potassium Level 3.3 3.5-5.1 mmol/L Chloride Level 106 98-107 mmol/L Carbon Dioxide Level 24 21-32 mmol/L Anion Gap 11.0 3-11 mmol/L Blood Urea Nitrogen 14 7-18 mg/dl Creatinine 1.30 0.60-1.40 mg/dl Est Creatinine Clear Calc Drug Dose 45.4 ml/min Estimated GFR () 60.6 Estimated GFR (Non- 52.3 BUN/Creatinine Ratio 10.4 10-20 Random Glucose 163 70-99 mg/dl Calcium Level 8.7 8.5-10.1 mg/dl Ammonia 109.0 11-32 umol/L Test 03/12/17 12:19 Range/Units Bedside Glucose 267 70-99 mg/dl
--- NOTE | 2017-03-12 13:06 | Discharge Summary ---
Discharge Summary Date of Service Mar 12, 2017. Discharge Summary Admission Date: Mar 10, 2017 at 02:57 Discharge Date: Mar 12, 2017 Discharge Disposition: Home Principal Diagnosis: HEPATIC ENCEPHALOPATHY Procedures: None Consultations: None Pending Studies/Follow-Up: Follow up with on 03/15/17 at 12:45pm Follow up with your soft sugar supervisor in 2 weeks as advised Medication Reconciliation Continued Medications: Albuterol Hfa (Ventolin Hfa) 200 Puffs/55040 Mcg Aers 2 PUFFS INH QID PRN for Cough Empagliflozin (Jardiance) 10 Mg Tab 10 MG PO QAM Ferrous Gluconate (Ferrous Gluconate) 324 Mg Tab 324 MG PO BID Furosemide (Furosemide) 40 Mg Tab 40 MG PO DAILY Hydroxyzine Pamoate (Vistaril) 25 Mg Cap 25 MG PO HS PRN for Anxiety Insulin Aspart (Novolog Flexpen) 100 Units/Ml Inj 45 UNITS SC AC Insulin Glargine (Lantus Solostar) 100 Unit/Ml Inj 45 UNITS SC AMPM Isosorbide Mononitrate Ext Rel (Imdur Ext Rel) 30 Mg Tabcr 30 MG PO QAM Lactulose (Chronulac) 10 Gm/15 Ml Syrp 30 ML PO TID TAKE 30 ML BY MOUTH 3 TIMES A DAY. HOLD ADDITIONAL DOSE FOR THAT DAY IF ALREADY HAD 3 BOWEL MOVEMENTS Losartan Potassium (Losartan Potassium) 25 Mg Tab 25 MG PO DAILY Magnesium Oxide (Mag-Ox) 400 Mg Tab 400 MG PO BID, TAB Metoprolol Tartrate (Lopressor) 25 Mg Tab 25 MG PO BID Nitroglycerin (Nitrostat) 0.4 Mg Tab 0.4 MG UT UD PRN for Chest Pain PLACE ONE TABLET UNDER THE TONGUE EVERY 5 MINUTES FOR UP TO 3 DOSES IF NEEDED FOR CHEST PAIN Pantoprazole (Pantoprazole Sodium) 40 Mg Tab 40 MG PO BID Potassium Chloride (Potassium Chloride Er) 10 Meq Tab 20 MEQ PO DAILY Rifaximin (Xifaxan) 550 Mg Tab 550 MG PO BID, TAB Rosuvastatin Calcium (Rosuvastatin Calcium) 40 Mg Tab 40 MG PO DAILY Tamsulosin HCl (Tamsulosin HCl) 0.4 Mg Cap 0.4 MG PO DAILY Admission Information HPI (per Admitting provider): 76 year old male with PMHx of KLEIN cirrhosis, IDDM, CAD s/p stent, CKd stage 3 , Severe , BPH, GERD, and CLAUDIO presents to the ED at the request of his PCP for abnormal lab work. Pt was recently admitted and discharged from [facility] 0n To 03/05. He had a follow up hospital appointment with PCP. He got a phone call around 11PM from Dr. Case tolentino go to the ER because outpatient labs showed ammonia level of 120 and elevated liver enzymes. As per family, the patient seems to be confused and it is getting worst. Also pt has been feeling tired lately with low energy. He also complaints of urinary incontinence. Patient reports currently he feels well. He denies fevers, chills, URI symptoms , chest pain, SOB, nausea, vomiting, diarrhea, dysuria, calf pain and edema. In the ED VS are stable, Ammonia level is 92. He is resting comfortably. Physical Exam (per Admitting): General Appearance: WD/WN, no apparent distress Head: normocephalic, atraumatic Eyes: normal inspection, EOMI ENT: normal ENT inspection, hearing grossly normal Neck: supple, no JVD Respiratory/Chest: normal breath sounds, no respiratory distress, no accessory muscle use Cardiovascular: no JVD, + systolic murmur Abdomen/GI: normal bowel sounds, non tender, + pertinent finding (mild distention) Back: no CVA tenderness Extremities/Musculoskelatal: no calf tenderness, normal range of motion Neurologic/Psych: no motor/sensory deficits, alert, normal mood/affect Skin: warm/dry, no rash Hospital Course Patient is a 76 yr old male presents to the ED for abnormal ammonia level. HEPATIC ENCEPHALOPATHY SECONDARY TO MEDICATION NONCOMPLIANCE H/O KLEIN CIRRHOSIS Ammonia levels improved Clinically no confusion Continue lactulose, Rifaximin, Lasix No signs of SBP, afebrile, no leukocytosis, denies abd pain Chronic transaminitis Follows with Dr. Garcia as outpatient URINARY FREQUENCY In setting of BPH UA negative for UTI continue Flomax IDDM A1c: 7.5 Continue Lantus, ISS Hold PO meds BSG AC HS HLD continue statin CAD S/P STENT, AORTIC STENOSIS Stable, no complaints continue BB, Statin, Imdur, ARB, CLAUDIO Hgb stable continue Iron supplementation BPH continue Flomax GERD continue PPI Acute GLENYS on CKD III Cr: 1.3 baseline avoid nephrotoxic agents Cr now at baseline S/P IVF Resumed lasix Monitor renal function DVT PX: SQ heparin CODE STATUS DNR Disposition: PT/OT eval check services clerk consulted Plan to discharge home today Follow up with on 03/15/17 at 12:45pm Follow up with your soft sugar supervisor in 2 weeks as advised Seek immediate medical attention if your symptoms reoccur or worsen Total time spent on discharge = 33 minutes This includes examination of the patient, discharge planning, medication reconciliation, and communication with other providers. Discharge Instructions Discharge Instructions Date of Service Mar 12, 2017. Admission Reason for Admission: Confusion Discharge Discharge Diagnosis / Problem: HEPATIC ENCEPHALOPATHY Discharge Goals Goal(s): Decrease discomfort, Improve function Activity Recommendations Activity Limitations: resume your previous activity Exercise/Sports Limitations: as tolerated . Instructions / Follow-Up Instructions / Follow-Up Follow up with on 03/15/17 at 12:45pm Follow up with your soft sugar supervisor in 2 weeks as advised Seek immediate medical attention if your symptoms reoccur or worsen Current Hospital Diet Patient's current hospital diet: Low Sodium Diet (2gm Na), Diabetes Type 2 Diet , AHA Diet (Heart Healthy) Discharge Diet Recommended Diet: AHA Diet (Heart Healthy), Low Sodium Diet (2gm Na), Diabetes Type 2 Diet Pending Studies Studies pending at discharge: no Medical Emergencies . Who to Call and When: Medical Emergencies: If at any time you feel your situation is an emergency, please call 911 immediately. . Non-Emergent Contact Non-Emergency issues call your: Primary Care Provider, Educational Speech Language Clinician Call Non-Emergent contact if: you have a fever, your pain is not controlled, your pain is worsening, your pain is unusual for you, you have any medication questions If your confusion reoccurs or worsens . . "Provider Documentation" section prepared by Julio Cesar Durbin. . VTE Core Measure Inpt VTE Proph given/why not?: Unfractionated heparin SQ
[2017-03-12] MEDS ORDERED: POTASSIUM CHLORIDE 10 MEQ TABCR PO ONE (13:15)
[2017-03-12 13:17] VITALS: BP 120/70; PULSE 74; TEMP 36.9; O2SAT 95
[2017-04-28] MEDS ORDERED: LCTL45 PO (15:54)
[2017-06-10] MEDS ORDERED: ASPEC81 PO (18:01)
[2017-06-10] MEDS ORDERED: DLCS PR (18:01)
[2017-06-10] MEDS ORDERED: SENN8.6T7 PO (18:01)
[2017-06-10] MEDS ORDERED: DXY100 PO (18:01)
== END 2017-03-12 14:06 | disposition home or self-care (01) | DRG 442 ==
LOC: C.EDB 23:28 → C.MSN 03-10 02:57 → ENRESERV 03-10 03:05 → CANRESERV 03-10 03:05 → ENRESERV 03-10 03:18
PROVIDERS: ADMIT Internal Medicine; ATTEND Internal Medicine
DX: K72.90 Hepatic failure, unspecified without coma (principal); N17.9 Acute kidney failure, unspecified; K75.81 Nonalcoholic steatohepatitis (NASH); I25.10 Atherosclerotic heart disease of native coronary artery without angina pectoris; E78.5 Hyperlipidemia, unspecified; K21.9 Gastro-esophageal reflux disease without esophagitis; N18.3 Chronic kidney disease, stage 3 (moderate); E11.22 Type 2 diabetes mellitus with diabetic chronic kidney disease; I12.9 Hypertensive chronic kidney disease with stage 1 through stage 4 chronic kidney disease, or unspecified chronic kidney disease; N40.1 Benign prostatic hyperplasia with lower urinary tract symptoms; R35.0 Frequency of micturition; D50.9 Iron deficiency anemia, unspecified; Z66 Do not resuscitate; Z79.4 Long term (current) use of insulin; Z79.899 Other long term (current) drug therapy; Z91.14 Patient's other noncompliance with medication regimen; Z95.5 Presence of coronary angioplasty implant and graft; Z87.891 Personal history of nicotine dependence

== ENCOUNTER 2017-03-25 16:34 | Inpatient (IN) | payer OTHER ==
[2017-03-25] VITALS (8 sets, daily range): BP systolic 86–135; BP diastolic 45–59; PULSE 62–74; TEMP 36.8; O2SAT 95–100; Ht 157.5 cm; Wt 84.3 kg
[~2017-03-25] VITALS: Ht 157.5 cm; Wt 84.3 kg
[~2017-03-25 16:34] MED LIST changes: -PANT40TA2 PO; +PRT/40 PO
[2017-03-25] MEDS ORDERED: SODIUM CHLORIDE 0.9% 1000ML 1,000 ML IV STA (17:00)
[2017-03-25 17:09] LABS: ISTAT CREATININE 1.5 mg/dl (0.6-1.3); ISTAT HEMOGLOBIN 9.9 g/dl (14.0-18.0); ISTAT IONIZED CALCIUM 1.27 mmol/l (1.12-1.32)
[2017-03-25 17:11] LABS: BASO % 0.5 %; BASO ABS # 0.03 K/uL (0-0.2); COMPLETE YES; EOS % 1.6 %; IG% 0.2 %; MEAN CELL VOLUME 95.4 fL (80-100); MEAN CORPUSCULAR HEMOGLOBIN 31.1 pg (25-34); MEAN CORPUSCULAR HGB CONC 32.6 g/dl (32-36); MEAN PLATELET VOLUME 11.2 fL (7.4-10.4); MONO % 12.3 %; NEUT % 72.4 %; PLATELET COUNT 106 K/uL (130-400); RED BLOOD COUNT 3.25 M/uL (4.7-6.1); WHITE BLOOD COUNT 6.16 K/uL (4.8-10.8)
[2017-03-25] MEDS ORDERED: OPTIRAY 320 IV PRN (17:15)
[2017-03-25 17:20] LABS: INR 1.1 (0.9-1.1); PROTHROMBIN TIME (PATIENT) 12.2 SECONDS (9.0-12.0)
[2017-03-25 17:24] LABS: BUN/CREATININE RATIO 11.7 (10-20); CALCIUM 9.3 mg/dl (8.5-10.1); CREATININE 1.7 mg/dl (0.60-1.40); POTASSIUM 3.8 mmol/L (3.5-5.1)
--- NOTE | 2017-03-25 17:34 | DIAGNOSTIC IMAGING REPORT ---
CT ANGIOGRAM OF THE ABDOMEN AND PELVIS CLINICAL HISTORY: Generalized abdominal pain. Hypotension. COMPARISON STUDY: Abdominal CT dated 02/13/2016 and 10/17/2013. TECHNIQUE: Following the IV administration of 115 cc of Optiray 320, CT angiogram of the abdomen and pelvis was performed from the lung bases the proximal femora. Images are reviewed in the axial, sagittal, and coronal planes. 3-D MIPS images are created and assessed. IV contrast was administered without complication. CT DOSE: 643.45 mGy.cm FINDINGS: Lower chest: The heart is enlarged and without pericardial effusion. The coronary arteries are densely calcified. The lung bases are clear noting dependent atelectasis. There is a small hiatal hernia. Liver: The contrast-enhanced liver is enlarged, measuring 19 cm in length. The liver demonstrates heterogeneous and diffusely diminished attenuation suggesting a component of steatosis. There is nodularity of the hepatic surface contour, with widening of the fissures and hypertrophy of the caudate lobe consistent with cirrhosis. There is no intrahepatic or ductal dilatation. There are large perisplenic varices and a splenorenal shunt. Gallbladder: There are calcified gallstones. The gallbladder is otherwise normal in appearance. Spleen: The spleen is markedly enlarged, measuring 16.8 cm in length. Pancreas: Moderately atrophic and grossly unremarkable. Adrenal glands: Unremarkable. Kidneys: The contrast enhanced kidneys demonstrate cortical atrophy and are without hydronephrosis. The kidneys enhance symmetrically. Abdominal aorta and iliac arteries: There is advanced atherosclerotic calcification and mild ectasia of the abdominal aorta. There is no aneurysm or dissection identified. The abdominal aorta is widely patent. There is atherosclerotic calcification and mild irregularity of the iliac vessels. The iliac arteries are widely patent bilaterally. Major branches of the abdominal aorta: The celiac trunk, superior mesenteric, and inferior mesenteric arteries are widely patent. Hepatic arterial anatomy is conventional. The splenic artery is patent. There is a single right renal artery and 2 left renal arteries. The renal arteries are widely patent bilaterally. Bowel: The small bowel and colon are normal in course and caliber. There is mild colonic diverticulosis without CT evidence of acute diverticulitis. The appendix is well-visualized and normal. Peritoneum: There is no intraperitoneal free air or abdominal ascites. There is a small fat-containing umbilical hernia. Small foci of induration within the ventral abdominal wall are likely related to subcutaneous injections. Lymphadenopathy: None. Pelvic viscera: The prostate gland is enlarged and heterogeneous, measuring 5.3 cm in transverse diameter. There is median lobe hypertrophy. The bladder wall is mildly thickened and trabeculated consistent with chronic outlet obstruction. Skeletal structures: The skeletal structures are osteopenic. There is moderate lumbosacral spondylosis. No lytic or blastic bony lesions are seen. IMPRESSION: 1. There is no aneurysm or dissection seen involving the abdominal aorta. 2. Unremarkable CT angiogram of the major branches of the abdominal aorta. 3. There are no acute infectious or inflammatory findings in abdomen or pelvis. 4. Cirrhotic liver morphology with evidence of portal hypertension including splenomegaly, perisplenic varices, and a splenorenal shunt. 5. Cardiomegaly and small hiatal hernia. 6. Mild colonic diverticulosis without CT evidence of acute diverticulosis. 7. Cholelithiasis. 8. Prostatomegaly with evidence of chronic bladder outlet obstruction. 9. Additional findings as above. Electronically signed by: Jamie Lunsford M.D. 03/25/2017 5:33 PM Dictated Date/Time: 03/25/2017 5:21 PM
--- NOTE | 2017-03-25 18:12 | History and Physical ---
History & Physical Date & Time of Service: Mar 25, 2017 at 18:12 Chief Complaint: Ab Pain, Hypotensive Primary Care Physician: Atiya Baltazar D.O. History of Present Illness Source: patient, family Patient is a 76 yr old male with PMHx of KLEIN cirrhosis, IDDM, CAD s/p stent, CKD III, Severe , BPH, GERD, and CLAUDIO presents to ED stating he was not feeling well " I feel lousy"today. He was found to be hypotensive with SBP in 60s and his ammonia levels is elevated at 153. Patient reported abdominal pain earlier today which resolved after having an episode of vomiting. Also reports dry cough since 2 days. States taking his medications regularly although compliance is questionable as per family. He states having dark colored stools secondary to taking Iron pills and is guaiac positive in ED. He denies any history of chest pain, SOB, fever, chills, diarrhea, headache, dizziness, recent travel, sick contact, change in appetite, urinary symptoms. CT abdomen no acute process. Patient received IVF boluses in ED but still has SBP in 80s. 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 (5) Diabetes mellitus type 2 in obese Status: Chronic (6) Diverticulosis Status: Chronic (7) Dyslipidemia Status: Chronic (8) GERD (gastroesophageal reflux disease) Status: Chronic (9) GI bleed Status: Chronic (10) Hiatal hernia Status: Chronic (11) HTN (hypertension) Status: Chronic (12) Kidney stone Status: Resolved (13) Portal hypertensive gastropathy Status: Chronic (14) Transaminitis Status: Chronic Surgical Problems: (1) H/O hemorrhoidectomy Status: Resolved (2) History of cardiac catheterization Status: Resolved (3) History of colonoscopy Status: Resolved (4) History of lumbar laminectomy Status: Resolved Family History FHx: heart disease FATHER ( from [place] age 65) BROTHER ([place] in his 40s) Reviewed Social History Smoking Status: Former Smoker Alcohol Use: none Drug Use: none Housing status: lives alone Occupational Status: retired Immunizations History of Influenza Vaccine: Yes Influenza Vaccine Date: Jun 08, 2016 History of Tetanus Vaccine?: Yes Tetanus Immunization Date: Nov 30, 2007 History of Pneumococcal: Yes Pneumococcal Date: Mar 19, 2015 Allergies Coded Allergies: PRASHANT Inhibitors (Verified Allergy, Severe, ANGIOEDEMA from 10/10/11 ED adm, 03/25/17) Lisinopril (Verified Allergy, Severe, Edema - face, lips and tongue, ) Simvastatin (Verified Allergy, Unknown, RASH, SORE ALL OVER. 2013: Uses Crestor, 03/25/17) Home Medications Scheduled Empagliflozin (Jardiance), 10 MG PO QAM Ferrous Gluconate (Ferrous Gluconate), 324 MG PO BID Furosemide (Furosemide), 40 MG PO DAILY Insulin Aspart (Novolog Flexpen), 45 UNITS SC AC Insulin Glargine (Lantus Solostar), 45 UNITS SC AMPM Isosorbide Mononitrate Ext Rel (Imdur Ext Rel), 30 MG PO QAM Lactulose (Chronulac), 30 ML PO TID Losartan Potassium (Losartan Potassium), 25 MG PO DAILY Magnesium Oxide (Mag-Ox), 400 MG PO BID Metoprolol Tartrate (Lopressor), 25 MG PO BID Pantoprazole (Pantoprazole Sodium), 40 MG PO BID Potassium Chloride (Potassium Chloride Er), 20 MEQ PO DAILY Rifaximin (Xifaxan), 550 MG PO BID Rosuvastatin Calcium (Rosuvastatin Calcium), 40 MG PO DAILY Tamsulosin HCl (Tamsulosin HCl), 0.4 MG PO DAILY Scheduled PRN Albuterol Hfa (Ventolin Hfa), 2 PUFFS INH QID PRN for Cough Hydroxyzine Pamoate (Vistaril), 25 MG PO HS PRN for Anxiety Nitroglycerin (Nitrostat), 0.4 MG UT UD PRN for Chest Pain Review of Systems See HPI for pertinent positives & negatives. A total of 10 systems reviewed and were otherwise negative. Physical Exam Vital Signs Date Time Temp Pulse Resp B/P (MAP) Pulse Ox O2 Delivery O2 Flow Rate FiO2 03/25/17 18:00 58 15 95/43 95 Room Air 03/25/17 17:45 58 15 95/40 96 Room Air 03/25/17 17:41 63 16 90/43 97 Room Air 03/25/17 17:28 58 15 90/37 97 Room Air 03/25/17 17:21 59 16 88/34 95 Room Air 03/25/17 16:51 99 Nasal Cannula 2.0 03/25/17 16:51 64 20 66/41 97 Room Air 03/25/17 16:46 63 66/33 03/25/17 16:44 64 03/25/17 16:41 36.5 64 19 81/39 95 Room Air General Appearance: WD/WN, no apparent distress Head: normocephalic, atraumatic Eyes: normal inspection, PERRL, EOMI ENT: normal ENT inspection, hearing grossly normal Neck: supple, trachea midline Respiratory/Chest: chest non-tender, lungs clear, normal breath sounds, no accessory muscle use Cardiovascular: regular rate, rhythm, no edema, + systolic murmur Abdomen/GI: normal bowel sounds, non tender, soft Back: normal inspection Extremities/Musculoskelatal: normal inspection, no pedal edema, + pertinent finding (Excoriations on B/L LE ) Neurologic/Psych: photographic lithographer II-XII nml as tested, no motor/sensory deficits, alert, oriented x 3, + pertinent finding (Lethargic) Skin: normal color, warm/dry Diagnostics Laboratory Results Results Past 24 Hours Test 03/25/17 16:45 03/25/17 16:53 03/25/17 16:56 03/25/17 16:57 Range/Units White Blood Count 6.16 4.8-10.8 K/uL Red Blood Count 3.25 4.7-6.1 M/uL Hemoglobin 10.1 14.0-18.0 g/dL Hematocrit 31.0 42-52 % Mean Corpuscular Volume 95.4 80-100 fL Mean Corpuscular Hemoglobin 31.1 25-34 pg Mean Corpuscular Hemoglobin Concent 32.6 32-36 g/dl Platelet Count 106 130-400 K/uL Mean Platelet Volume 11.2 7.4-10.4 fL Neutrophils (%) (Auto) 72.4 % Lymphocytes (%) (Auto) 13.0 % Monocytes (%) (Auto) 12.3 % Eosinophils (%) (Auto) 1.6 % Basophils (%) (Auto) 0.5 % Neutrophils # (Auto) 4.46 1.4-6.5 K/uL Lymphocytes # (Auto) 0.80 1.2-3.4 K/uL Monocytes # (Auto) 0.76 0.11-0.59 K/uL Eosinophils # (Auto) 0.10 0-0.5 K/uL Basophils # (Auto) 0.03 0-0.2 K/uL RDW Standard Deviation 62.3 36.4-46.3 fL RDW Coefficient of Variation 18.0 11.5-14.5 % Immature Granulocyte % (Auto) 0.2 % Immature Granulocyte # (Auto) 0.01 0.00-0.02 K/uL Prothrombin Time 12.2 9.0-12.0 SECONDS Prothromb Time International Ratio 1.1 0.9-1.1 Activated Partial Thromboplast Time 25.3 21.0-31.0 SECONDS Partial Thromboplastin Ratio 1.0 Sodium Level 144 136-145 mmol/L Potassium Level 3.8 3.5-5.1 mmol/L Chloride Level 111 98-107 mmol/L Carbon Dioxide Level 24 21-32 mmol/L Anion Gap 9.0 19.0 16-25 mmol/L Blood Urea Nitrogen 20 7-18 mg/dl Creatinine 1.70 0.60-1.40 mg/dl Est Creatinine Clear Calc Drug Dose 34.0 ml/min Estimated GFR () 43.8 Estimated GFR (Non- 37.8 BUN/Creatinine Ratio 11.7 10-20 Random Glucose 108 70-99 mg/dl Calcium Level 9.3 8.5-10.1 mg/dl Total Bilirubin 0.7 0.2-1 mg/dl Direct Bilirubin 0.2 0-0.2 mg/dl Aspartate Amino Transf (AST/SGOT) 74 15-37 U/L Alanine Aminotransferase (ALT/SGPT) 45 12-78 U/L Alkaline Phosphatase 184 45-117 U/L Total Protein 5.7 6.4-8.2 gm/dl Albumin 2.7 3.4-5.0 gm/dl Lipase 415 73-393 U/L Bedside Lactic Acid Venous 1.36 0.90-1.70 mmol/L Bedside Troponin I < 0.030 0-0.045 ng/ml Bedside Hemoglobin 9.9 14.0-18.0 g/dl Bedside Hematocrit 29 42-52 % Bedside Sodium 142 135-144 mEq/L Bedside Potassium 3.6 3.3-5.0 mEq/L Bedside Chloride 105 101-112 mEq/L Bedside Total CO2 22 24-31 mEq/l Bedside Blood Urea Nitrogen 20 7-18 mg/dl Bedside Creatinine 1.5 0.6-1.3 mg/dl Bedside Glucose (other) 106 70-99 mg/dl Bedside Ionized Calcium ([place]) 1.27 1.12-1.32 mmol/l Test 03/25/17 17:38 03/25/17 17:59 Range/Units Ammonia 153.0 11-32 umol/L Microbiology Results 03/25/17 Blood Culture, Meghan Batch Pending 03/25/17 Blood Culture, Meghan Batch Pending Diagnostic Radiology CTA: 1. There is no aneurysm or dissection seen involving the abdominal aorta. 2. Unremarkable CT angiogram of the major branches of the abdominal aorta. 3. There are no acute infectious or inflammatory findings in abdomen or pelvis. 4. Cirrhotic liver morphology with evidence of portal hypertension including splenomegaly, perisplenic varices, and a splenorenal shunt. 5. Cardiomegaly and small hiatal hernia. 6. Mild colonic diverticulosis without CT evidence of acute diverticulosis. 7. Cholelithiasis. 8. Prostatomegaly with evidence of chronic bladder outlet obstruction. 9. Additional findings as above. CXR: Mild cardiomegaly with stable interstitial thickening. No evidence of lobar consolidation EKG EKG:NSR, Nonspecific ST and T wave changes, Prolonged QT Impression Assessment and Plan HYPOTENSION: Possible multifactorial: ? secondary to dehydration/On HTN meds/Hypoalbuminemia , and Liver disease No obvious source of infections: CXR/UA/CT abd negative. Normal lactate, procalcitonin Aggressive IV fluid IV albumin No active bleeding but guaiac positive Monitor H&H Transfuse PRN Empirically cover with IV antibiotics Check cultures Monitor in ICU overnight for possible need for pressors KLEIN CIRRHOSIS Ammonia levels:153 Continue lactulose, Rifaximin Resume Lasix when BP is controlled No ascites on CT abd, no abd pain on exam Follows with Dr. Garcia as outpatient GI consulted GLENYS on CKD III Cr: 1.2 baseline Start on IV fluids avoid nephrotoxic agents Hold lasix, losartan Monitor renal function IDDM Last A1c: 7.5 Continue Lantus, ISS Will up titrate lantus to 45 BID (his home dose if necessary) Hold PO meds BSG AC HS HLD continue statin CAD S/P STENT, AORTIC STENOSIS Stable, no complaints continue BB, Statin Held Imdur, ARB secondary to hypotension Iron deficiency Anemia Hb:10.1 continue Iron supplementation Guaiac positive in ED Monitor H&H GI consulted BPH Flomax held secondary to hypotension GERD continue PPI DVT PX: SCDs CODE STATUS DNR Disposition: Monitor in ICU overnight for possible need for pressors
--- NOTE | 2017-03-25 18:20 | DIAGNOSTIC IMAGING REPORT ---
CHEST ONE VIEW PORTABLE CLINICAL HISTORY: Respiratory difficulty COMPARISON STUDY: 03/03/2017 FINDINGS: The heart is enlarged. There is mild elevation of the interstitium. There is no focal pulmonary consolidation. There are no pleural effusions.[ IMPRESSION: Mild cardiomegaly with stable interstitial thickening. No evidence of lobar consolidation Electronically signed by: Paulino Kat M.D. 03/25/2017 6:18 PM Dictated Date/Time: 03/25/2017 6:17 PM
[2017-03-25] MEDS ORDERED: SODIUM CHLORIDE 0.9% 1000ML 1,000 ML IV SCH (19:10)
[2017-03-25 19:14] LABS: ISTAT CREATININE 1.4 mg/dl (0.6-1.3); ISTAT HEMOGLOBIN 8.8 g/dl (14.0-18.0); ISTAT IONIZED CALCIUM 1.19 mmol/l (1.12-1.32)
[2017-03-25] MEDS ORDERED: DEXTROSE 50% 50 ML SYR IV PRN (19:30)
[2017-03-25] MEDS ORDERED: hydrOXYzine HCL 25 MG TAB PO PRN (19:30)
[2017-03-25] MEDS ORDERED: GLUCOSE 40% GEL 15 GM TUBE PO PRN (19:30)
[2017-03-25] MEDS ORDERED: GLUCAGON FOR INJ 1 MG VIAL SQ PRN (19:30)
[2017-03-25] MEDS ORDERED: GLUCOSE 10 TABS/TUBE PO PRN (19:30)
[2017-03-25] MEDS ORDERED: ALBUT/IPRATROP 3MG/0.5MG NEB 3 ML VIAL INH PRN (19:30)
[2017-03-25 19:39] LABS: URINE APPEARANCE CLEAR (CLEAR); URINE BILIRUBIN NEG (NEG); URINE COLOR YELLOW; URINE NITRITE NEG (NEG); URINE SPECIFIC GRAVITY 1.026 (1.000-1.030); UROBILINOGEN NEG (NEG)
[2017-03-25] MEDS ORDERED: VASOPRESSIN INJ 50 UNITS in SODIUM CHLORIDE 0.9% 500ML 500 ML IV PRN (19:53)
[2017-03-25 20:04] LABS: MANUAL MICROSCOPIC REQUIRED? NO; REVIEW REQ? NO
[2017-03-25] MEDS: ALBUMIN HUMAN 25% 12.5 GM/50 ML VIAL IV SCH ×8 (20:19→22:05)
[2017-03-25] MEDS ORDERED: NORMOSOL R 1,000 ML IV SCH (20:30)
--- NOTE | 2017-03-25 20:43 | Pharmacy Progress Note ---
Pharmacy Abx Initial Consult Date of Service Mar 25, 2017. Pharmacy Dosing Scope Date of Consult: 03/25/2017 Consultation requested by: Dr. Rachel Pharmacy is consulted to initiate vancomycin IV dosing therapy, order appropriate labs and adjust drug dose/frequency. Subjective The patient is a 76 year old male admitted on Mar 25, 2017 at 19:17. Objective Height (Feet): 5 Height (Inches): 2.00 Weight (Kilograms): 86.000 Vital Signs (Past 12Hrs) Vital Signs Past 12 Hours Date Time Temp Pulse Resp B/P (MAP) Pulse Ox O2 Delivery O2 Flow Rate FiO2 03/25/17 19:41 61 18 95/38 95 Room Air 03/25/17 19:10 83/40 03/25/17 18:58 58 18 86/39 97 Room Air 03/25/17 18:30 60 17 69/37 95 Room Air 03/25/17 18:00 58 15 95/43 95 Room Air 03/25/17 17:45 58 15 95/40 96 Room Air 03/25/17 17:41 63 16 90/43 97 Room Air 03/25/17 17:28 58 15 90/37 97 Room Air 03/25/17 17:21 59 16 88/34 95 Room Air 03/25/17 16:51 99 Nasal Cannula 2.0 03/25/17 16:51 64 20 66/41 97 Room Air 03/25/17 16:46 63 66/33 03/25/17 16:44 64 03/25/17 16:41 36.5 64 19 81/39 95 Room Air Lab Results (24Hrs) Laboratory Tests (24 Hours) Test 03/25/17 16:45 White Blood Count 6.16 K/uL (4.8-10.8) Red Blood Count 3.25 M/uL (4.7-6.1) L Hemoglobin 10.1 g/dL (14.0-18.0) L Hematocrit 31.0 % (42-52) L Mean Corpuscular Volume 95.4 fL (80-100) Mean Corpuscular Hemoglobin 31.1 pg (25-34) Mean Corpuscular Hemoglobin Concent 32.6 g/dl (32-36) Platelet Count 106 K/uL (130-400) L Mean Platelet Volume 11.2 fL (7.4-10.4) H Neutrophils (%) (Auto) 72.4 % Lymphocytes (%) (Auto) 13.0 % Monocytes (%) (Auto) 12.3 % Eosinophils (%) (Auto) 1.6 % Basophils (%) (Auto) 0.5 % Neutrophils # (Auto) 4.46 K/uL (1.4-6.5) Lymphocytes # (Auto) 0.80 K/uL (1.2-3.4) L Monocytes # (Auto) 0.76 K/uL (0.11-0.59) H Eosinophils # (Auto) 0.10 K/uL (0-0.5) Basophils # (Auto) 0.03 K/uL (0-0.2) Procalcitonin 0.32 ng/ml (0-0.5) Micro Results Date/Time Source Procedure Growth Status 03/25/17 18:25 Blood Blood Culture Pending Received 03/25/17 18:23 Blood Blood Culture Pending Received 03/25/17 19:20 Urine,Catheterized Urine Culture Pending Received Risk Factors for Resistance * no information currently available regarding patient Assessment & Plan Assessment 76 year old male admitted with low blood pressure. He has a H of liver disease. Plan vancomycin for treatment of empiric indication Vancomycin IV * Loading dose: 2150 mg (25 mg/kg) * Maintenance dose: 1300 mg IV (15 mg/kg) every 18 hours (population pharmacokinetics suggest a half-life of 17 hours and an elimination constant of 0.04 hr-1). * Goal trough level for empiric : 15 to 20 mcg/mL * Not ordered as empiric indication chosen and patient will receive only 3 doses. Pharmacy will continue to follow and will adjust dose/frequency as necessary. Thank you.
[2017-03-25] MEDS ORDERED: VANCOMYCIN CONSULT ACTIVE PRN (20:45)
[2017-03-25] MEDS ORDERED: METRONIDAZOLE / NSS 500 MG in PREMIXED NSS 100 ML IV SCH (21:00)
[2017-03-25] MEDS ORDERED: CEFTRIAXONE SOD INJ 1 GM in DEXTROSE 5% ADD-VANTAGE 50ML 50 ML IV SCH (21:00)
[2017-03-25] MEDS: INSULIN ASPART 100 UNITS/ML 3 ML PEN SC SCH (21:00)
[2017-03-25] MEDS ORDERED: VANCOMYCIN INJ 2,150 MG in SODIUM CHLORIDE 0.9% 500ML 500 ML IV ONE (21:00)
[2017-03-25] MEDS: INSULIN GLARGINE SOLOSTAR 100 UNITS/ML 3 ML PEN SC SCH (21:13)
[2017-03-25] MEDS: LACTULOSE SYRUP 30 GM/45 ML UDP PO SCH (21:15)
[2017-03-25] MEDS: PANTOprazole SOD 40 MG TAB PO SCH (21:16)
[2017-03-25] MEDS: MAGNESIUM OXIDE 400 MG TAB PO SCH (21:16)
[2017-03-25] MEDS: RIFAXIMIN TAB 550 MG TAB PO SCH (21:17)
[2017-03-25] MEDS: FERROUS GLUCONATE 324 MG TAB PO SCH (21:17)
--- NOTE | 2017-03-25 21:59 | Critical Care Consultation ---
Critical Care Consultation Date of Consultation: Mar 25, 2017. Attending Physician: Lynda Nguyen D.O. Reason for Consultation: Hypotension History of Present Illness Bryan Ariza is a 76-year-old male with known past medical history including KLEIN, Hepatic Encephalopathy, insulin-dependent diabetes type 2, critical aortic valve stenosis, ischemic heart disease with multiple coronary interventions, and stage III kidney disease. He presented to the emergency department this afternoon secondary to complaints of "I'm not feeling good." Patient states that for the last 2 days he's had a slight cough and it is dry. He also states that he's been experiencing abdominal pain that was followed by one episode of emesis which did not relieve the pain but did substantially lowers level. He states that the pain was located in the right upper quadrant and did not radiate to any other location. In the emergency room, the pt was a poor historian about his medical history and family member at bedside was not completely familiar with other diagnoses. Patient underwent fluid resuscitation in the emergency department of 2 L or approximately 23 mL/kg. Patient's blood pressure ranged from mid 60's to high 90's. Upon Dr. Rachel and I's arrival in the ED, pt was consented for CVL and A. Line and shortly there after arrived in the ICU to bed 102. Pt underwent both procedures without difficulty. Upon my most recent examination, the patient is not complaining of any abdominal pain or any pain otherwise. He denies fever/chills, malaise, shortness of breath. He has not experienced nausea, vomiting, or diarrhea since arrival. Pt denies numbness/tingling of extremities. He has had no recent change in bowel or bladder habits. Out-pt information: Pt follows with [facility] for Cardiology, GI, and Family Practice. He was most recently seen for in follow up for hospital admission due to chest pain. There was suspicion of unstable angina; however, troponin was negative and EKG showed ST-T wave changes. ECHO was performed during that hospital stay which demonstrated ejection fraction of 6065% without left ventricular wall motion abnormalities. Monitor severe degree of calcification to the aortic valve. Borderline severe aortic stenosis is present with a peak transvalvular velocity of 3.8 to 4M/S. There is mild mitral and tricuspid regurgitation. Mild to moderate pulmonary hypertension is present with pulmonary artery systolic pressure at 49 mmHg. Pt reported to his provider that he feels like he is often confused and may be missing medication doses at times. He feels he has been taking his insulin, lactulose, and xifaxan correctly. He was last seen by cardiology (01/04/17) who documents are recent hospital stay for hepatic encephalopathy secondary to missed dose of lactulose. Pt last seen by GI (10/25/16) which records recent EGD/Colonscopy with portal hypertensive gastropathy, no varices. Pt underwent Live U/S to rule out HCC. Findings were Liver Cirrhosis without focal hepatic lesions. 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 (6) Confusion (7) Diabetes mellitus type 2 in obese (8) Diverticulosis (9) Dyslipidemia (10) GERD (gastroesophageal reflux disease) (11) GI bleed (12) Hepatic encephalopathy (13) Hiatal hernia (14) HTN (hypertension) (15) Kidney stone (16) Noncompliance (17) Portal hypertensive gastropathy (18) Transaminitis Surgical Problems: (1) H/O hemorrhoidectomy (2) History of cardiac catheterization (3) History of colonoscopy (4) History of lumbar laminectomy Family History FHx: heart disease FATHER ( from [place] age 65) BROTHER ([place] in his 40s) Noncontributory Social History Smoking Status: Former Smoker Smokeless Tobacco Use: No Alcohol Use: none Drug Use: none Housing Status: lives with family Occupation Status: retired Allergies Coded Allergies: PRASHANT Inhibitors (Verified Allergy, Severe, ANGIOEDEMA from 10/10/11 ED adm, 03/25/17) Lisinopril (Verified Allergy, Severe, Edema - face, lips and tongue, ) Simvastatin (Verified Allergy, Unknown, RASH, SORE ALL OVER. 2013: Uses Crestor, 03/25/17) Home Medications Scheduled Empagliflozin (Jardiance), 10 MG PO QAM Ferrous Gluconate (Ferrous Gluconate), 324 MG PO BID Furosemide (Furosemide), 40 MG PO DAILY Insulin Aspart (Novolog Flexpen), 45 UNITS SC AC Insulin Glargine (Lantus Solostar), 45 UNITS SC AMPM Isosorbide Mononitrate Ext Rel (Imdur Ext Rel), 30 MG PO QAM Lactulose (Chronulac), 30 ML PO TID Losartan Potassium (Losartan Potassium), 25 MG PO DAILY Magnesium Oxide (Mag-Ox), 400 MG PO BID Metoprolol Tartrate (Lopressor), 25 MG PO BID Pantoprazole (Pantoprazole Sodium), 40 MG PO BID Potassium Chloride (Potassium Chloride Er), 20 MEQ PO DAILY Rifaximin (Xifaxan), 550 MG PO BID Rosuvastatin Calcium (Rosuvastatin Calcium), 40 MG PO DAILY Tamsulosin HCl (Tamsulosin HCl), 0.4 MG PO DAILY Scheduled PRN Albuterol Hfa (Ventolin Hfa), 2 PUFFS INH QID PRN for Cough Hydroxyzine Pamoate (Vistaril), 25 MG PO HS PRN for Anxiety Nitroglycerin (Nitrostat), 0.4 MG UT UD PRN for Chest Pain Current Inpatient Medications Current Inpatient Medications Medications (Trade) Dose Ordered Sig/Suman Route Start Time Stop Time Status Last Admin Dose Admin Ioversol (Optiray 320) 100 ml UD PRN IV 03/25/17 17:15 03/29/17 17:14 Albumin Human (Albumin 25%) 12.5 gm Q1H IV 03/25/17 19:15 03/26/17 02:16 03/25/17 21:49 12.5 GM Albumin Human (Albumin 25%) 12.5 gm Q30M IV 03/26/17 08:00 03/26/17 11:31 Ferrous Gluconate (Ferrous Gluconate Tab) 324 mg BID PO 03/25/17 21:00 04/24/17 20:59 03/25/17 21:17 324 MG Insulin Glargine (Lantus Solostar Pen) 25 units BID SC 03/25/17 21:00 04/24/17 20:59 03/25/17 21:13 25 UNITS Lactulose (Chronulac Syrup) 30 gm TID PO 03/25/17 21:00 04/24/17 20:59 03/25/17 21:15 30 GM Magnesium Oxide (Mag-Ox Tab) 400 mg BID PO 03/25/17 21:00 04/24/17 20:59 03/25/17 21:16 400 MG Pantoprazole Sodium (Protonix Tab) 40 mg BID PO 03/25/17 21:00 8/6/17 20:59 03/25/17 21:16 40 MG Rifaximin (Xifaxan Tab) 550 mg BID PO 03/25/17 21:00 04/24/17 20:59 03/25/17 21:17 550 MG Hydroxyzine HCl (Vistaril Tab) 25 mg HS PRN PO 03/25/17 19:30 04/24/17 19:29 Potassium Chloride (Klor-Con Tab) 20 meq DAILY PO 03/26/17 09:00 04/25/17 08:59 Rosuvastatin Calcium (Crestor Tab) 40 mg DAILY PO 03/26/17 09:00 04/25/17 08:59 Albuterol/ Ipratropium (Duoneb) 3 ml QIDR PRN INH 03/25/17 19:30 04/24/17 19:29 Insulin Aspart (novoLOG ASPART) SLIDING SCALE If C... ACHS SC 03/25/17 21:00 04/24/17 20:59 Glucose (Glucose 40% Gel) 15-30 GRAMS 15 GRAMS... UD PRN PO 03/25/17 19:30 04/24/17 19:29 Glucose (Glucose Chew Tab) 4-8 Tablets 4 Tabl... UD PRN PO 03/25/17 19:30 04/24/17 19:29 Dextrose (Dextrose 50% 50ML Syringe) 25-50ML OF 50% DW IV FOR... UD PRN IV 03/25/17 19:30 04/24/17 19:29 Glucagon (Glucagon Inj) 1 mg UD PRN SQ 03/25/17 19:30 04/24/17 19:29 Vasopressin 50 units/Sodium Chloride 502.5 ml @ 0 mls/hr Q0M PRN IV 03/25/17 19:53 04/24/17 19:52 03/25/17 20:43 12 MLS/HR Vancomycin HCl 2150 mg/Sodium Chloride 543 ml @ 200 mls/hr NOW ONCE IV 03/25/17 21:00 03/25/17 23:42 03/25/17 21:05 200 MLS/HR Ceftriaxone Sodium 1 gm/ Dextrose 50 ml @ 100 mls/hr Q24H IV 03/25/17 21:00 03/27/17 20:59 03/25/17 20:55 100 MLS/HR Metronidazole 500 mg/Prmx 100 ml @ 100 mls/hr Q8H IV 03/25/17 21:00 03/27/17 19:59 03/25/17 21:29 100 MLS/HR Parenteral Electrolyte Solution 1,000 ml @ 50 mls/hr Q20H IV 03/25/17 20:30 04/24/17 20:29 Future Hold 03/25/17 20:29 50 MLS/HR Vancomycin HCl 1300 mg/Sodium Chloride 276 ml @ 125 mls/hr Q18H IV 03/26/17 15:00 03/27/17 23:59 Vancomycin HCl (Consult) 1 ea UD PRN N/A 03/25/17 20:45 04/24/17 20:44 Albumin Human (Albumin 25%) 12.5 gm Q30M IV 03/27/17 08:00 03/27/17 11:31 Review of Systems 12 systems reviewed and negative other than previously mentioned in the HPI. Physical Exam Date Time Temp Pulse Resp B/P (MAP) Pulse Ox O2 Delivery O2 Flow Rate FiO2 03/25/17 21:30 63 16 120/52 (74) 97 Room Air 03/25/17 21:20 36.8 64 16 98/45 100 Room Air 03/25/17 21:15 65 15 120/51 (74) 97 Room Air 03/25/17 21:00 62 15 118/53 (74) 97 Room Air 03/25/17 20:45 66 16 86/48 (61) 99 Room Air 03/25/17 20:30 65 17 98/45 (62) 99 Room Air 03/25/17 19:41 61 18 95/38 95 Room Air 03/25/17 19:10 83/40 03/25/17 18:58 58 18 86/39 97 Room Air 03/25/17 18:30 60 17 69/37 95 Room Air 03/25/17 18:00 58 15 95/43 95 Room Air 03/25/17 17:45 58 15 95/40 96 Room Air 03/25/17 17:41 63 16 90/43 97 Room Air 03/25/17 17:28 58 15 90/37 97 Room Air 03/25/17 17:21 59 16 88/34 95 Room Air 03/25/17 16:51 99 Nasal Cannula 2.0 03/25/17 16:51 64 20 66/41 97 Room Air 03/25/17 16:46 63 66/33 03/25/17 16:44 64 03/25/17 16:41 36.5 64 19 81/39 95 Room Air Vital Signs - as noted Laboratory Data - as noted Physical Exam: General - NAD, Very pleasant joking in bed Eyes - Pupils are unequal(pt notes normal for him) left pupil is larger than right and slower to respond to light, EOMI No icterus, gaze conjugate ENT - Mucosa moist, without teeth, no lesions or candidiasis Neck - Supple, trachea midline, no masses or lymphadenopathy, no JVD or bruits, Left IJ catheter in place Lungs - No paradoxical chest wall movement, clear to auscultation bilaterally, some expiratory coarseness in the bases with faint end expiratory wheese; no rales, or rhonchi Heart - Reg rate and rhythm, Grade 2 systolic murmur; No rubs, clicks, or gallops appreciated Abdomen - BS present, no bruits noted, tympanic to percussion, soft, nontender, moderately distended, no organomegaly Extremities - No edema, pedal pulses intact Neuro - A&O X 4 Strength extremities equal and appropriate bilaterally Reflexes: normal and equal CN:PERRL, EOMI, no facial asymmetry, uvula/tongue midline Laboratory Results Last 24 Hours Test 03/25/17 16:45 03/25/17 16:53 03/25/17 16:56 03/25/17 16:57 White Blood Count 6.16 K/uL Red Blood Count 3.25 M/uL Hemoglobin 10.1 g/dL Hematocrit 31.0 % Mean Corpuscular Volume 95.4 fL Mean Corpuscular Hemoglobin 31.1 pg Mean Corpuscular Hemoglobin Concent 32.6 g/dl Platelet Count 106 K/uL Mean Platelet Volume 11.2 fL Neutrophils (%) (Auto) 72.4 % Lymphocytes (%) (Auto) 13.0 % Monocytes (%) (Auto) 12.3 % Eosinophils (%) (Auto) 1.6 % Basophils (%) (Auto) 0.5 % Neutrophils # (Auto) 4.46 K/uL Lymphocytes # (Auto) 0.80 K/uL Monocytes # (Auto) 0.76 K/uL Eosinophils # (Auto) 0.10 K/uL Basophils # (Auto) 0.03 K/uL RDW Standard Deviation 62.3 fL RDW Coefficient of Variation 18.0 % Immature Granulocyte % (Auto) 0.2 % Immature Granulocyte # (Auto) 0.01 K/uL Prothrombin Time 12.2 SECONDS Prothromb Time International Ratio 1.1 Activated Partial Thromboplast Time 25.3 SECONDS Partial Thromboplastin Ratio 1.0 Sodium Level 144 mmol/L Potassium Level 3.8 mmol/L Chloride Level 111 mmol/L Carbon Dioxide Level 24 mmol/L Anion Gap 9.0 mmol/L 19.0 mmol/L Blood Urea Nitrogen 20 mg/dl Creatinine 1.70 mg/dl Est Creatinine Clear Calc Drug Dose 34.0 ml/min Estimated GFR () 43.8 Estimated GFR (Non- 37.8 BUN/Creatinine Ratio 11.7 Random Glucose 108 mg/dl Calcium Level 9.3 mg/dl Total Bilirubin 0.7 mg/dl Direct Bilirubin 0.2 mg/dl Aspartate Amino Transf (AST/SGOT) 74 U/L Alanine Aminotransferase (ALT/SGPT) 45 U/L Alkaline Phosphatase 184 U/L Total Protein 5.7 gm/dl Albumin 2.7 gm/dl Lipase 415 U/L Procalcitonin 0.32 ng/ml Random Cortisol 24.36 mcg/dl Bedside Lactic Acid Venous 1.36 mmol/L Bedside Troponin I < 0.030 ng/ml Bedside Hemoglobin 9.9 g/dl Bedside Hematocrit 29 % Bedside Sodium 142 mEq/L Bedside Potassium 3.6 mEq/L Bedside Chloride 105 mEq/L Bedside Total CO2 22 mEq/l Bedside Blood Urea Nitrogen 20 mg/dl Bedside Creatinine 1.5 mg/dl Bedside Glucose (other) 106 mg/dl Bedside Ionized Calcium ([place]) 1.27 mmol/l Test 03/25/17 17:38 03/25/17 18:51 03/25/17 18:57 03/25/17 19:02 Ammonia 153.0 umol/L Bedside Hemoglobin 8.8 g/dl Bedside Hematocrit 26 % Bedside Sodium 142 mEq/L Bedside Potassium 3.8 mEq/L Bedside Chloride 108 mEq/L Bedside Total CO2 22 mEq/l Anion Gap 17.0 mmol/L Bedside Blood Urea Nitrogen 21 mg/dl Bedside Creatinine 1.4 mg/dl Bedside Glucose (other) 66 mg/dl Bedside Ionized Calcium ([place]) 1.19 mmol/l Bedside Lactic Acid Venous 1.27 mmol/L Test 03/25/17 19:20 03/25/17 21:10 Urine Color YELLOW Urine Appearance CLEAR Urine pH 7.0 Urine Specific [place] 1.026 Urine Protein NEG Urine Glucose (UA) 3+ Urine Ketones NEG Urine Occult Blood NEG Urine Nitrite NEG Urine Bilirubin NEG Urine Urobilinogen NEG Urine Leukocyte Esterase NEG Bedside Glucose 95 mg/dl Diagnostic Results CT ANGIOGRAM OF THE ABDOMEN AND PELVIS CLINICAL HISTORY: Generalized abdominal pain. Hypotension. COMPARISON STUDY: Abdominal CT dated 02/13/2016 and 10/17/2013. TECHNIQUE: Following the IV administration of 115 cc of Optiray 320, CT angiogram of the abdomen and pelvis was performed from the lung bases the proximal femora. Images are reviewed in the axial, sagittal, and coronal planes. 3-D MIPS images are created and assessed. IV contrast was administered without complication. CT DOSE: 643.45 mGy.cm FINDINGS: Lower chest: The heart is enlarged and without pericardial effusion. The coronary arteries are densely calcified. The lung bases are clear noting dependent atelectasis. There is a small hiatal hernia. Liver: The contrast-enhanced liver is enlarged, measuring 19 cm in length. The liver demonstrates heterogeneous and diffusely diminished attenuation suggesting a component of steatosis. There is nodularity of the hepatic surface contour, with widening of the fissures and hypertrophy of the caudate lobe consistent with cirrhosis. There is no intrahepatic or ductal dilatation. There are large perisplenic varices and a splenorenal shunt. Gallbladder: There are calcified gallstones. The gallbladder is otherwise normal in appearance. Spleen: The spleen is markedly enlarged, measuring 16.8 cm in length. Pancreas: Moderately atrophic and grossly unremarkable. Adrenal glands: Unremarkable. Kidneys: The contrast enhanced kidneys demonstrate cortical atrophy and are without hydronephrosis. The kidneys enhance symmetrically. Abdominal aorta and iliac arteries: There is advanced atherosclerotic calcification and mild ectasia of the abdominal aorta. There is no aneurysm or dissection identified. The abdominal aorta is widely patent. There is atherosclerotic calcification and mild irregularity of the iliac vessels. The iliac arteries are widely patent bilaterally. Major branches of the abdominal aorta: The celiac trunk, superior mesenteric, and inferior mesenteric arteries are widely patent. Hepatic arterial anatomy is conventional. The splenic artery is patent. There is a single right renal artery and 2 left renal arteries. The renal arteries are widely patent bilaterally. Bowel: The small bowel and colon are normal in course and caliber. There is mild colonic diverticulosis without CT evidence of acute diverticulitis. The appendix is well-visualized and normal. Peritoneum: There is no intraperitoneal free air or abdominal ascites. There is a small fat-containing umbilical hernia. Small foci of induration within the ventral abdominal wall are likely related to subcutaneous injections. Lymphadenopathy: None. Pelvic viscera: The prostate gland is enlarged and heterogeneous, measuring 5.3 cm in transverse diameter. There is median lobe hypertrophy. The bladder wall is mildly thickened and trabeculated consistent with chronic outlet obstruction. Skeletal structures: The skeletal structures are osteopenic. There is moderate lumbosacral spondylosis. No lytic or blastic bony lesions are seen. IMPRESSION: 1. There is no aneurysm or dissection seen involving the abdominal aorta. 2. Unremarkable CT angiogram of the major branches of the abdominal aorta. 3. There are no acute infectious or inflammatory findings in abdomen or pelvis. 4. Cirrhotic liver morphology with evidence of portal hypertension including splenomegaly, perisplenic varices, and a splenorenal shunt. 5. Cardiomegaly and small hiatal hernia. 6. Mild colonic diverticulosis without CT evidence of acute diverticulosis. 7. Cholelithiasis. 8. Prostatomegaly with evidence of chronic bladder outlet obstruction. 9. Additional findings as above. Electronically signed by: Jamie Lunsford M.D. 03/25/2017 5:33 PM Dictated Date/Time: 03/25/2017 5:21 PM SINGLE VIEW CHEST CLINICAL HISTORY: Central venous catheter placement. FINDINGS: An AP, portable, upright chest radiograph is compared to study performed earlier the same day 03/25/2017. Correlation is made with chest CT dated 12/17/2015. The examination is degraded by portable technique and patient rotation. A left internal jugular central venous catheter has been placed. The tip projects over the left innominate vein. The heart is enlarged and there is atherosclerotic calcification of the thoracic aorta. The pulmonary vascular is noncongested. Chronic interstitial thickening is similar to previous. The lungs and pleural spaces are otherwise clear. No pneumothorax is seen. The skeletal structures are osteopenic. The bony thorax is grossly intact. IMPRESSION: 1. A left internal jugular central venous catheter has been placed as detailed above. No pneumothorax is identified post procedure. 2. Cardiomegaly without radiographic evidence of congestive failure. 3. No airspace consolidation or large pleural effusion is seen. Electronically signed by: Jamie Lunsford M.D. 03/25/2017 10:07 PM Dictated Date/Time: 03/25/2017 10:05 PM Assessment & Plan (1) Hypotension SBP in the ED noted to be less than 90 Per recommendation of hepatorenal syndrome treatment * 1 mg/kg of albumin daily x 3days * Vasopressin IV: Goal map greater than 90 * Must avoid hypotension secondary to history of aortic stenosis as well as current acute kidney injury * Secondary to hypertension central access started * Right radial arterial line and left internal jugular central venous line placed 03/25/2017 (2) Hepatic encephalopathy (3) Confusion Trend ammonia levels Likely secondary to hepatic encephalopathy Patient with prior history is well; likely secondary to noncompliance Continue home medications of lactulose and rifaximin as primary treatment (4) Noncompliance Need to consult case management prior to discharge Compliance issues appear to be the result of approximately 9 visits to [facility] in the last 12 months; ammonia levels this time are most severe Concern for patient safety upon discharge (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 Continue home medications rifaximin 550 mg twice a day Treat for hepatorenal syndrome as documented above albumin 100 mg daily 3 days Continue lactulose 30 g 3 times a day (6) Diabetes mellitus type 2 in obese Sliding scale insulin place with NovoLog Lantus reduced ( home dose is 45 units twice a day) will use 25 units twice a day currently Monitor glucose per protocol Notify provider if glucose is greater than 180 (7) CAD (coronary artery disease) Continue statin 40 mg by mouth daily Troponin negative Monitor on telemetry (8) Aortic stenosis ECHO Moderate Aortic Stenosis: Cautious replacement of fluids to avoid pulmonary congestion Avoid reduction and preload Control heart rate and blood pressure to reduce cardiac workload (9) Anemia Monitor daily CBC We'll likely see dilutional anemia secondary to 2 L fluid resuscitation due to hypotension (10) Vomiting (11) Diffuse abdominal pain Resolved Reason Critically Ill: Patient is an 76-year-old male who is transferred to the ICU for confusion 2/2 hepatic encephalopathy and hepatorenal syndrome complicated by hypotension with systolic blood pressures less than 90. Pts labs on admission were significant for Ammonia of 153, creatinine of 1.7; elevated AST at 74 and alkaline phosphatase at 184; lipase 4:15. Resp: * Supplemental oxygen as required * PRN nebulizers ordered * Monitor for fluid overload Fluids/Renal: * Farley in place to gravity * Urinary output adequate * Normosol at 50 mL per hour currently held * Monitor electrolytes and replace as indicated * Closely monitor prescribed medications secondary to a creatinine clearance of 34 and a GFR of 37.8 * Avoid nephrotoxins ID: * No obvious source of infection * Pro calcitonin negative/ lactic acid 1.36-1.27 * Afebrile * WBCs 6.16 * Trend fever curve; no current indication for broad-spectrum antibiotics * Blood and urine cultures pending GI/Nutrition: * Diet ordered: AHA type 2 diabetes diet * C. difficile toxin ordered: Stool currently uncollected; send when possible * Monitor liver and pancreas laboratory values Heme: No history of chronic anemia secondary to stage III chronic kidney disease * DVT prophylaxis: SCDs ordered, will require chemical prophylaxis in the morning Access: [address], left internal jugular central venous line, R Radial Arterial Line CCT: 45 Minutes; This time is exclusive of all separately billable procedures. Thank you for involving us in the care of this patient. Please refer to Dr. River Rachel's addendum for further recommendations. I have personally evaluated and examined this patient. I agree with assessment and plan of Bobbi Martino PA-C. Patient with hepatic insufficiency and hypotension of unclear etiology. Concerns for sepsis versus dehydration versus hepatorenal syndrome. Empiric treatment for hepatorenal syndrome, volume expansion with albumin and augmentation with vasopressin * Vasopressin utilized over norepinephrine given severe aortic stenosis, desire less tachycardia * No evidence of ascites on CT scan Problem Qualifiers (1) Hypotension: Hypotension type: unspecified hypotension type Qualified Codes: I95.9 - Hypotension, unspecified (2) Anemia: Anemia type: unspecified type Qualified Codes: D64.9 - Anemia, unspecified
--- NOTE | 2017-03-25 22:01 | Procedure Note ---
Procedure Note Procedure Date Mar 25, 2017. (Maria Victoria Martino PA-C) I was present and assisted during the entire procedure. (River Rachel, D.O.) Procedure Description Procedure Name: Right Arterial Line Procedure time out: side/site verified, patient ID confirmed, correct procedure Consent obtained: written (Pt Deferred signing consent to his daugther in [facility]) Time of procedure: 21:45 Performed by: physician environmental compliance specialist (Maria Victoria Martino PA-C) Indications: diagnostic, therapeutic Contraindications: none Description: Using sterile technique; the right radial artery was cleaned with a chloro- hexadine scrub after adequate palpation and visualization with the ultrasound, a finder needle with overlaying catheter was then used with approach at a 45* angle until a flash was obtained with direct visualization on ultrasound. Using Seldinger technique, there was initially minor difficulty passing the guide wire, on the second attempt the guide wire was then passed successfully into the artery and the catheter was threaded over the guide wire; which was then removed and noted to be intact. Arterial blood was seen pulsating from catheter tip and a luer lock valve was attached to the catheter. The A-line catheter was then secured with one stat-lock and covered with a sterile surgical dressing. Pt was reassessed and no evidence of hematoma was appreciated. The tubing was placed between the first and second fingers and taped to the forearm.. Pt tolerated the procedure well with no complications. Consent was obtained by Dr. River Rachel Complications: none Patient tolerated procedure: well Post-procedure vital signs: reviewed and stable (Maria Victoria Martino PA-C) Central Line Procedure time out: side/site verified, patient ID confirmed, sterile procedure used Consent obtained: written (Pt Deferred signing consent to his daugther in [facility]) Time of procedure: 20:30 Performed by: physician environmental compliance specialist (Maria Victoria Martino) Indications: central drug admin. Prep: chlorhexadine prep, sterile drape, sterile procedures used Anesthesia: local injection, lidocaine 1% without epi Volume anesthetic (ml's): 5 Central line lumen: triple Central line location: internal jugular (L) Additional details: percutaneous placement, ultrasound guidance, Selinger technique used, line sutured, good blood return CXR: appropriate position, no pneumothorax Complications: none Patient tolerated procedure: well Post-procedure vital signs: reviewed and stable Comments: Critical Care Medicine Point of Care Bedside Ultrasound Procedure: Procedural Ultrasound Procedure Date: 03/25/2017 Indication: CVL Placement Attending: Mao Rachel DO Resident/Physician Purification Supervisor: Maria Victoria Martino PA-C Organs Examined: Left Internal Jugular If for central venous access Artery AND Vein visualized: Y Compressible Vein: Y Guidewire or Short Catheter seen in vein prior to dilation: Y Line confirmed in Vein with ultrasound: Y Lung Sliding on side of attempt (if applicable): n/a If no lung sliding or not obtained has CXR been ordered: y Impression: No Pneumothorax and line in good position Plan: May use line for central drug administration Images obtained are saved for permanent record Procedure: Consent was obtained prior to procedure. Indication, risks, and benefits were explained at length. Procedure was performed under strict sterile field in O.R. fashion. The left neck and chest were cleaned with chloroprep scrub and the pt was draped in sterile fashion. The internal jugular vein was identified using ultrasound. After anesthetizing the area with 5cc of lidocaine, venous blood was withdrawn after accessing the vein under ultrasound guidance. The syringe was removed and a guide wire was advanced into the introducer needle.The dilator was advanced after being exchanged for the introducer needle. After appropriate dilation was obtained dimpling of the skin was noted and the dilator and wire were removed intact together. Pressure was applied to the site until procedure was started again through the same entry site with increased angle of approach. The internal jugular vein was again identified using ultrasound. Pt's venous blood was withdrawn after accessing the vein under ultrasound guidance. The syringe was removed and a guide wire was advanced into the introducer needle. The dilator was advanced after being exchanged for the introducer needle. After appropriate dilation was obtained the dilator was removed and the central catheter was placed over the guide wire using Seldinger technique. The wire was removed and the catheter was sutured at 17cm. A surgical dressing was placed over the catheter with a biofilm shield in place. At the time of the procedure each port was aspirated and then flushed properly. Pt tolerated the procedure well with no complications. Post procedure x-ray was completed, placement was appropriate and no pneumothorax was noted. (Maria Victoria Martino PA-C)
--- NOTE | 2017-03-25 22:08 | DIAGNOSTIC IMAGING REPORT ---
SINGLE VIEW CHEST CLINICAL HISTORY: Central venous catheter placement. FINDINGS: An AP, portable, upright chest radiograph is compared to study performed earlier the same day 03/25/2017. Correlation is made with chest CT dated 12/17/2015. The examination is degraded by portable technique and patient rotation. A left internal jugular central venous catheter has been placed. The tip projects over the left innominate vein. The heart is enlarged and there is atherosclerotic calcification of the thoracic aorta. The pulmonary vascular is noncongested. Chronic interstitial thickening is similar to previous. The lungs and pleural spaces are otherwise clear. No pneumothorax is seen. The skeletal structures are osteopenic. The bony thorax is grossly intact. IMPRESSION: 1. A left internal jugular central venous catheter has been placed as detailed above. No pneumothorax is identified post procedure. 2. Cardiomegaly without radiographic evidence of congestive failure. 3. No airspace consolidation or large pleural effusion is seen. Electronically signed by: Jamie Lunsford M.D. 03/25/2017 10:07 PM Dictated Date/Time: 03/25/2017 10:05 PM
[2017-03-25 23:40] LABS: HEMATOCRIT 24.3 % (42-52)
[2017-03-26] VITALS (17 sets, daily range): BP systolic 111–152; BP diastolic 41–86; PULSE 64–84; TEMP 36.7–37.3; O2SAT 92–96
--- NOTE | 2017-03-26 00:17 | EMERGENCY ROOM VISIT NOTE ---
History Report prepared by Pranav: Aleaxndra Rodriguez Under the Supervision of: Dr. Dustin Tobias M.D. First contact with patient: 16:49 Chief Complaint: HYPOTENSION Stated Complaint: AB PAIN, HYPOTENSIVE History of Present Illness The patient is a 76 year old male who presents to the Emergency Room with complaints of resolved abdominal pain that occurred just prior to arrival. The patient states that he developed an aching pain across his abdomen today. He states that he vomited which helped alleviate his pain. The patient states that he has been having bowel movements, but states that they are dark in color since he is on iron. He denies any hematochezia. The patient denies the pain traveling to his back. The patient denies any current abdominal pain, chest pain, shortness of breath, fever, headache, or lightheadedness. He denies being on any anti-coagulants. Source of History: patient Onset: just prior to arrival Position: abdomen Quality: ache Timing: resolved Modifying Factors (Relieving): other (vomiting) Associated Symptoms: + vomiting, No fevers, No headache, No chest pain, No SOB, No back pain, No hematochezia Review of Systems See HPI for pertinent positives & negatives. A total of 10 systems reviewed and were otherwise negative. 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 (6) Confusion (7) Diabetes mellitus type 2 in obese (8) Diverticulosis (9) Dyslipidemia (10) GERD (gastroesophageal reflux disease) (11) GI bleed (12) Hepatic encephalopathy (13) Hiatal hernia (14) HTN (hypertension) (15) Kidney stone (16) Noncompliance (17) Portal hypertensive gastropathy (18) Transaminitis Surgical Problems: (1) H/O hemorrhoidectomy (2) History of cardiac catheterization (3) History of colonoscopy (4) History of lumbar laminectomy Family History FHx: heart disease FATHER ( from [place] age 65) BROTHER (CABG in his 40s) Social History Smoking Status: Former Smoker Alcohol Use: none Drug Use: none Housing Status: lives with family Occupation Status: retired Current/Historical Medications Scheduled Empagliflozin (Jardiance), 10 MG PO QAM Ferrous Gluconate (Ferrous Gluconate), 324 MG PO BID Furosemide (Furosemide), 40 MG PO DAILY Insulin Aspart (Novolog Flexpen), 45 UNITS SC AC Insulin Glargine (Lantus Solostar), 45 UNITS SC AMPM Isosorbide Mononitrate Ext Rel (Imdur Ext Rel), 30 MG PO QAM Lactulose (Chronulac), 30 ML PO TID Losartan Potassium (Losartan Potassium), 25 MG PO DAILY Magnesium Oxide (Mag-Ox), 400 MG PO BID Metoprolol Tartrate (Lopressor), 25 MG PO BID Pantoprazole (Pantoprazole Sodium), 40 MG PO BID Potassium Chloride (Potassium Chloride Er), 20 MEQ PO DAILY Rifaximin (Xifaxan), 550 MG PO BID Rosuvastatin Calcium (Rosuvastatin Calcium), 40 MG PO DAILY Tamsulosin HCl (Tamsulosin HCl), 0.4 MG PO DAILY Scheduled PRN Albuterol Hfa (Ventolin Hfa), 2 PUFFS INH QID PRN for Cough Hydroxyzine Pamoate (Vistaril), 25 MG PO HS PRN for Anxiety Nitroglycerin (Nitrostat), 0.4 MG UT UD PRN for Chest Pain Allergies Coded Allergies: PRASHANT Inhibitors (Verified Allergy, Severe, ANGIOEDEMA from 10/10/11 ED adm, 03/25/17) Lisinopril (Verified Allergy, Severe, Edema - face, lips and tongue, ) Simvastatin (Verified Allergy, Unknown, RASH, SORE ALL OVER. 2013: Uses Crestor, 03/25/17) Physical Exam Vital Signs Date Time Temp Pulse Resp B/P (MAP) Pulse Ox O2 Delivery O2 Flow Rate FiO2 03/25/17 19:10 83/40 03/25/17 18:58 58 18 86/39 97 Room Air 03/25/17 18:30 60 17 69/37 95 Room Air 03/25/17 18:00 58 15 95/43 95 Room Air 03/25/17 17:45 58 15 95/40 96 Room Air 03/25/17 17:41 63 16 90/43 97 Room Air 03/25/17 17:28 58 15 90/37 97 Room Air 03/25/17 17:21 59 16 88/34 95 Room Air 03/25/17 16:51 99 Nasal Cannula 2.0 7/7/17 16:51 64 20 66/41 97 Room Air 03/25/17 16:46 63 66/33 03/25/17 16:44 64 03/25/17 16:41 36.5 64 19 81/39 95 Room Air Physical Exam Constitutional: Vital signs reviewed. Hypotensive. Eyes: Pupils are equal round reactive to light. Conjunctiva are noninjected. ENT: Pharynx is clear without erythema or exudate. Mucous membranes are moist. Neck supple without meningeal signs. Respiratory: Clear to auscultation bilaterally. Breath sounds are equal bilaterally. Cardiovascular: Regular rate and rhythm. No rubs or gallops. GI: Soft, nondistended and nontender. Bowel sounds are present. Rectal: Guaiac positive brown stool. Musculoskeletal: No peripheral edema. No lower extremity tenderness. Integumentary: No cyanosis. Neurological: The patient is awake and alert. No focal deficits. Psychiatric: Normal affect. Medical Decision & Procedures ER Provider Diagnostic Interpretation: Radiology results as stated below per my review and the radiologist's interpretation: CT ANGIOGRAM OF THE ABDOMEN AND PELVIS CLINICAL HISTORY: Generalized abdominal pain. Hypotension. COMPARISON STUDY: Abdominal CT dated 02/13/2016 and 10/17/2013. TECHNIQUE: Following the IV administration of 115 cc of Optiray 320, CT angiogram of the abdomen and pelvis was performed from the lung bases the proximal femora. Images are reviewed in the axial, sagittal, and coronal planes. 3-D MIPS images are created and assessed. IV contrast was administered without complication. CT DOSE: 643.45 mGy.cm FINDINGS: Lower chest: The heart is enlarged and without pericardial effusion. The coronary arteries are densely calcified. The lung bases are clear noting dependent atelectasis. There is a small hiatal hernia. Liver: The contrast-enhanced liver is enlarged, measuring 19 cm in length. The liver demonstrates heterogeneous and diffusely diminished attenuation suggesting a component of steatosis. There is nodularity of the hepatic surface contour, with widening of the fissures and hypertrophy of the caudate lobe consistent with cirrhosis. There is no intrahepatic or ductal dilatation. There are large perisplenic varices and a splenorenal shunt. Gallbladder: There are calcified gallstones. The gallbladder is otherwise normal in appearance. Spleen: The spleen is markedly enlarged, measuring 16.8 cm in length. Pancreas: Moderately atrophic and grossly unremarkable. Adrenal glands: Unremarkable. Kidneys: The contrast enhanced kidneys demonstrate cortical atrophy and are without hydronephrosis. The kidneys enhance symmetrically. Abdominal aorta and iliac arteries: There is advanced atherosclerotic calcification and mild ectasia of the abdominal aorta. There is no aneurysm or dissection identified. The abdominal aorta is widely patent. There is atherosclerotic calcification and mild irregularity of the iliac vessels. The iliac arteries are widely patent bilaterally. Major branches of the abdominal aorta: The celiac trunk, superior mesenteric, and inferior mesenteric arteries are widely patent. Hepatic arterial anatomy is conventional. The splenic artery is patent. There is a single right renal artery and 2 left renal arteries. The renal arteries are widely patent bilaterally. Bowel: The small bowel and colon are normal in course and caliber. There is mild colonic diverticulosis without CT evidence of acute diverticulitis. The appendix is well-visualized and normal. Peritoneum: There is no intraperitoneal free air or abdominal ascites. There is a small fat-containing umbilical hernia. Small foci of induration within the ventral abdominal wall are likely related to subcutaneous injections. Lymphadenopathy: None. Pelvic viscera: The prostate gland is enlarged and heterogeneous, measuring 5.3 cm in transverse diameter. There is median lobe hypertrophy. The bladder wall is mildly thickened and trabeculated consistent with chronic outlet obstruction. Skeletal structures: The skeletal structures are osteopenic. There is moderate lumbosacral spondylosis. No lytic or blastic bony lesions are seen. IMPRESSION: 1. There is no aneurysm or dissection seen involving the abdominal aorta. 2. Unremarkable CT angiogram of the major branches of the abdominal aorta. 3. There are no acute infectious or inflammatory findings in abdomen or pelvis. 4. Cirrhotic liver morphology with evidence of portal hypertension including splenomegaly, perisplenic varices, and a splenorenal shunt. 5. Cardiomegaly and small hiatal hernia. 6. Mild colonic diverticulosis without CT evidence of acute diverticulosis. 7. Cholelithiasis. 8. Prostatomegaly with evidence of chronic bladder outlet obstruction. 9. Additional findings as above. Electronically signed by: Jamie Lunsford M.D. 03/25/2017 5:33 PM Dictated Date/Time: 03/25/2017 5:21 PM CHEST ONE VIEW PORTABLE CLINICAL HISTORY: Respiratory difficulty COMPARISON STUDY: 03/03/2017 FINDINGS: The heart is enlarged. There is mild elevation of the interstitium. There is no focal pulmonary consolidation. There are no pleural effusions.[ IMPRESSION: Mild cardiomegaly with stable interstitial thickening. No evidence of lobar consolidation Electronically signed by: Paulino Kat M.D. 03/25/2017 6:18 PM Dictated Date/Time: 03/25/2017 6:17 PM Laboratory Results 03/25/17 16:45 Red Blood Count 3.25, Mean Corpuscular Volume 95.4, Mean Corpuscular Hemoglobin 31.1, Mean Corpuscular Hemoglobin Concent 32.6, Mean Platelet Volume 11.2, Neutrophils (%) (Auto) 72.4, Lymphocytes (%) (Auto) 13.0, Monocytes (%) (Auto) 12.3, Eosinophils (%) (Auto) 1.6, Basophils (%) (Auto) 0.5, Neutrophils # (Auto ) 4.46, Lymphocytes # (Auto) 0.80, Monocytes # (Auto) 0.76, Eosinophils # (Auto ) 0.10, Basophils # (Auto) 0.03 03/25/17 16:45 Test 03/25/17 16:45 03/25/17 16:56 03/25/17 17:38 03/25/17 18:57 White Blood Count 6.16 K/uL (4.8-10.8) Red Blood Count 3.25 M/uL (4.7-6.1) Hemoglobin 10.1 g/dL (14.0-18.0) Hematocrit 31.0 % (42-52) Mean Corpuscular Volume 95.4 fL (80-100) Mean Corpuscular Hemoglobin 31.1 pg (25-34) Mean Corpuscular Hemoglobin Concent 32.6 g/dl (32-36) Platelet Count 106 K/uL (130-400) Mean Platelet Volume 11.2 fL (7.4-10.4) Neutrophils (%) (Auto) 72.4 % Lymphocytes (%) (Auto) 13.0 % Monocytes (%) (Auto) 12.3 % Eosinophils (%) (Auto) 1.6 % Basophils (%) (Auto) 0.5 % Neutrophils # (Auto) 4.46 K/uL (1.4-6.5) Lymphocytes # (Auto) 0.80 K/uL (1.2-3.4) Monocytes # (Auto) 0.76 K/uL (0.11-0.59) Eosinophils # (Auto) 0.10 K/uL (0-0.5) Basophils # (Auto) 0.03 K/uL (0-0.2) RDW Standard Deviation 62.3 fL (36.4-46.3) RDW Coefficient of Variation 18.0 % (11.5-14.5) Immature Granulocyte % (Auto) 0.2 % Immature Granulocyte # (Auto) 0.01 K/uL (0.00-0.02) Prothrombin Time 12.2 SECONDS (9.0-12.0) Prothromb Time International Ratio 1.1 (0.9-1.1) Activated Partial Thromboplast Time 25.3 SECONDS (21.0-31.0) Partial Thromboplastin Ratio 1.0 Est Creatinine Clear Calc Drug Dose 34.0 ml/min Estimated GFR () 43.8 Estimated GFR (Non- 37.8 BUN/Creatinine Ratio 11.7 (10-20) Calcium Level 9.3 mg/dl (8.5-10.1) Total Bilirubin 0.7 mg/dl (0.2-1) Direct Bilirubin 0.2 mg/dl (0-0.2) Aspartate Amino Transf (AST/SGOT) 74 U/L (15-37) Alanine Aminotransferase (ALT/SGPT) 45 U/L (12-78) Alkaline Phosphatase 184 U/L (45-117) Total Protein 5.7 gm/dl (6.4-8.2) Albumin 2.7 gm/dl (3.4-5.0) Lipase 415 U/L (73-393) Procalcitonin 0.32 ng/ml (0-0.5) Random Cortisol 24.36 mcg/dl Bedside Troponin I < 0.030 ng/ml (0-0.045) Ammonia 153.0 umol/L (11-32) Bedside Hemoglobin 8.8 g/dl (14.0-18.0) Bedside Hematocrit 26 % (42-52) Bedside Sodium 142 mEq/L (135-144) Bedside Potassium 3.8 mEq/L (3.3-5.0) Bedside Chloride 108 mEq/L (101-112) Bedside Total CO2 22 mEq/l (24-31) Anion Gap 17.0 mmol/L (16-25) Bedside Blood Urea Nitrogen 21 mg/dl (7-18) Bedside Creatinine 1.4 mg/dl (0.6-1.3) Bedside Glucose (other) 66 mg/dl (70-99) Bedside Ionized Calcium ([place]) 1.19 mmol/l (1.12-1.32) Test 03/25/17 19:02 Bedside Lactic Acid Venous 1.27 mmol/L (0.90-1.70) Date/Time Source Procedure Growth Status 03/25/17 00:00 Nasal MRSA DNA Surveillance Screen - Final Specimen Negative for MRSA by DNA Probe Complete Laboratory results as reviewed by me. Medications Administered Medications (Trade) Dose Ordered Sig/Suman Route Start Time Stop Time Status Last Admin Dose Admin Sodium Chloride 1,000 ml @ 999 mls/hr Q1H1M STAT IV 03/25/17 17:00 03/25/17 18:00 DC 03/25/17 17:00 999 MLS/HR Albumin Human (Albumin 25%) 12.5 gm Q1H IV 03/25/17 19:15 03/26/17 02:16 03/25/17 22:05 12.5 GM ECG Indication: abdominal pain Rate (beats per minute): 64 Rhythm: normal sinus Findings: nonspecific-ST abn (V4-V6), no ectopy ED Course 1651: The patient was evaluated in room C6. A complete history and physical exam was performed. 1700: Ordered Sodium Chloride 1000 ml @ 999 mls/hr IV. 1723: Per nursing staff the patient's systolic blood pressure is now up in the 80s. 1732: I reevaluated the patient and his blood pressure is now 94/39 mmHg. He denies any current complaints. The patient agreed to a blood transfusion due to his guaiac positive stool. 1745: I discussed the patients case with Dr. Green, Gastroenterology. He said not to transfuse the patient and do an infectious workup. He states that the patient should be evaluated for further treatment, given fluids, and have close follow-up. 1757: I discussed the patients case with Jhon Mathis. He is going to evaluate the patient for further treatment. 1845: I reevaluated the patient and his blood pressure is dropping into the 60s , but he still has no complaints. He is going to have a repeat H&H. 1847: I reevaluated the patient and his blood pressure is now 80/37. 1914: I reevaluated the patient and his repeat blood pressure was 86/39 mmHg. His repeat hemoglobin was 8.8. I discussed this with the hospitalist and he wants to hold off on transfusion. The patient received 2 liters of normal saline that may have caused hemodilution. The hospitalist states that he will admit the patient to the ICU. His PO lactic is 1.27 but we are still awaiting his urine. Medical Decision This is a 76-year-old male who presents with abdominal pain and hypotension. Differential diagnosis includes abdominal aortic aneurysm, aortic dissection, GI bleed, anemia, diverticulitis, infection. I did perform a limited focused review of portions of the patient's old chart on the electronic medical record. The patient was admitted March 10 for hepatic encephalopathy. In June 2016 , the patient had an EEG that revealed no esophageal varices. Medication Reconciliation: I attest that I have personally reviewed the patient' s current medication list. Blood Pressure Screening: Patient was found to be hypotensive on screening. I did evaluate the patient as noted above. He is presenting with abdominal pain and hypotension. He does state that his abdominal pain is now gone. I did perform a limited bedside ultrasound of his aorta but was unable to visualize the aorta due to bowel gas. IV access was established. The patient was placed on a continuous monitoring engineer. He was given a liter normal saline IV. I did order and personally review the patient's 12-lead EKG and chest x-ray as described above. I did order and review the patient's blood work as noted in the electronic medical record. He has anemia, thrombocytopenia and a creatinine 1.4 on i-STAT labs. I did order a CT angiogram of the abdomen and pelvis. I did review the images myself as well as the radiology report as described above. There is no evidence of abdominal aortic aneurysm. There is no evidence of ascites. The patient's blood pressure did improve with normal saline. But then dropped again. He was given another liter normal saline IV and his systolic blood pressure when in the 90s. He is guaiac positive with anemia and reported black stools. I therefore ordered type and cross transfusion for the patient. I did obtain written and verbal consent from the patient. I did discuss the case with Dr. Green of gastroenterology. He felt that the patient did not necessarily need transfusion. He recommended continued fluid resuscitation and to look for signs of infection. His urine was unremarkable. Chest x-ray does not show pneumonia. He has no ascites to suggest SBP. He has no abdominal pain 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. The patient has no complaints currently. I did reassess him multiple times. I did discuss the case with the hospitalist who spoke to the pt escort. The patient was admitted to the ICU for further evaluation. Should his blood pressure come down again he will require pressors. Consults Time Called: 174 Consulting Physician: Dr. Green, Gastroenterology Returned Call: 174 I discussed the patients case with Dr. Green, Gastroenterology. He said not to transfuse the patient and do an infectious workup. He states that the patient should be evaluated for further treatment, given fluids, and have close follow-up. Additional Consults: Time Called: 175 Consulted Physician: Jhon Mathis Returned Call: 175 Additional Comments: I discussed the patients case with Jhon Mathis. He is going to evaluate the patient for further treatment. Impression Primary Impression: Hypotension Additional Impressions: Rectal bleeding Anemia Diffuse abdominal pain Hyperammonemia Thrombocytopenia Critical Care I have personally spent 40 minutes of critical care time in the direct management of this patient. This includes bedside care, interpretation of diagnostic studies, and testing, discussion with consultants, patient, and family members, and other required patient management activities. This 40 minutes is in excess of all separately billable procedures. Scribe Attestation The scribe's documentation has been prepared under my direct and personally reviewed by me in its entirety. I confirm that the note above accurately reflects all work, treatment, procedures, and medical decision making performed by me. Departure Information Dispostion Being Evaluated By Hospitalist Referrals Atiya Baltazar D.O. (PCP) Problem Qualifiers Primary Impression: Hypotension Hypotension type: unspecified hypotension type Qualified Codes: I95.9 - Hypotension, unspecified Additional Impressions: Anemia Anemia type: unspecified type Qualified Codes: D64.9 - Anemia, unspecified
[2017-03-26 05:30] LABS: HEMATOCRIT 23.9 % (42-52); MEAN CELL VOLUME 95.6 fL (80-100); MEAN CORPUSCULAR HEMOGLOBIN 32.4 pg (25-34); MEAN CORPUSCULAR HGB CONC 33.9 g/dl (32-36); WHITE BLOOD COUNT 3.91 K/uL (4.8-10.8)
[2017-03-26 05:51] LABS: BUN/CREATININE RATIO 13.8 (10-20); CALCIUM 8.9 mg/dl (8.5-10.1); CREATININE 1.3 mg/dl (0.60-1.40); MAGNESIUM 2.3 mg/dl (1.8-2.4); MEAN PLATELET VOLUME 10.5 fL (7.4-10.4); PLATELET COUNT 57 K/uL (130-400); POTASSIUM 3.6 mmol/L (3.5-5.1)
[2017-03-26 05:53] LABS: PHOSPHORUS 2.7 mg/dl (2.5-4.9)
[2017-03-26 06:16] LABS: BASO % 0.8 %; BASO ABS # 0.03 K/uL (0-0.2); COMPLETE YES; EOS % 1.5 %; LARGE PLATELETS 1+; LYMPH % 12.8 %; NEUT % 72.9 %; OVALOCYTES 1+
[2017-03-26] MEDS: ALBUMIN HUMAN 25% 12.5 GM/50 ML VIAL IV SCH ×8 (08:45→10:02)
[2017-03-26] MEDS: INSULIN ASPART 100 UNITS/ML 3 ML PEN SC SCH ×4 (08:49→20:45)
[2017-03-26] MEDS: LACTULOSE SYRUP 30 GM/45 ML UDP PO SCH ×3 (08:49→20:43)
[2017-03-26] MEDS: ROSUVASTATIN CALCIUM 20 MG TAB PO SCH (08:50)
[2017-03-26] MEDS: FERROUS GLUCONATE 324 MG TAB PO SCH ×2 (08:51→20:41)
[2017-03-26] MEDS: RIFAXIMIN TAB 550 MG TAB PO SCH ×2 (08:52→20:47)
[2017-03-26] MEDS: POTASSIUM CHLORIDE 20 MEQ TABCR PO SCH (08:52)
[2017-03-26] MEDS: MAGNESIUM OXIDE 400 MG TAB PO SCH ×2 (08:52→20:43)
[2017-03-26] MEDS: PANTOprazole SOD 40 MG TAB PO SCH ×2 (08:52→20:42)
[2017-03-26] MEDS: INSULIN GLARGINE SOLOSTAR 100 UNITS/ML 3 ML PEN SC SCH ×2 (08:56→20:46)
--- NOTE | 2017-03-26 09:22 | Critical Care Progress Note ---
Critical Care Progress Note Date of Service Mar 26, 2017. ICU Day ICU Day Number: [address] Rachel Objective General - NAD, Very pleasant joking in bed Eyes -pupils equal round reactive to light and accommodation ENT -mucous membranes moist Neck - Supple, trachea midline, no masses or lymphadenopathy, Left IJ catheter in place Lungs -clear to auscultation Heart - Reg rate and rhythm, Grade 2 systolic murmur; No rubs, clicks, or gallops appreciated Abdomen - BS present, Extremities - No edema, pedal pulses intact Neuro - A&O X 4 Strength extremities equal bilaterally Current SOFA Score SOFA Score Response (Comments) Value Platelets (x10) < 100 2 Bilirubin (mg/dL) < 1.2 0 Hermelinda Coma Score 15 0 Level of Hypotension MAP less than 70 1 Creatinine (mg/dL) 1.2 - 1.9 1 Total 4 Assessment & Plan (1) Hypotension SBP in the ED noted to be less than 90 Empiric treatment of possible of hepatorenal syndrome treatment * 1 mg/kg of albumin daily x 3days * Vasopressin IV: Discontinuing * Converting to midodrine and octreotide for 24 hours * Continue 1 g/kg albumin today * Patient responded appropriately, and this should preclude need for tips nor dialysis during this admission (2) Hepatic encephalopathy Elevated ammonia improving, continue lactulose (3) Confusion Improved (4) Noncompliance Need to consult case management prior to discharge Compliance issues appear to be the result of approximately 9 visits to [facility] in the last 12 months; ammonia levels this time are most severe (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 Continue home medications rifaximin 550 mg twice a day Treat for hepatorenal syndrome as documented above albumin 100 mg daily 3 days Continue lactulose 30 g 3 times a day (6) Diabetes mellitus type 2 in obese Sliding scale insulin place with NovoLog Lantus reduced ( home dose is 45 units twice a day) will use 25 units twice a day currently Monitor glucose per protocol Notify provider if glucose is greater than 180 (7) CAD (coronary artery disease) Continue statin 40 mg by mouth daily Troponin negative Monitor on telemetry (8) Aortic stenosis ECHO Moderate Aortic Stenosis: Cautious replacement of fluids to avoid pulmonary congestion Avoid reduction and preload Control heart rate and blood pressure to reduce cardiac workload (9) Anemia Monitor daily CBC We'll likely see dilutional anemia secondary to 2 L fluid resuscitation due to hypotension (10) Vomiting (11) Diffuse abdominal pain Resolved PLAN: Neuro: Encephalopathy improved Resp: Supplemental oxygen as needed CV: Hypotension improved with empiric treatment of hepatorenal syndrome versus dehydration Fluids/Renal: Continue empiric treatment of hepatorenal syndrome for another 24 hours * No maintenance fluid as patient on clear diet and getting albumin volume expansion * Vadito urinalysis more consistent with hepatorenal syndrome versus prerenal azotemia, would anticipate to have seen hyaline casts ID: Doubt sepsis, discontinued all antibiotics GI/Nutrition: Trend H&H through today Heme: Thrombocytopenia, will continue mechanical DVT prophylaxis * Holding chemical prophylaxis for possible gastrointestinal bleeding * Baseline platelets appears to be around 100,000- 90,000 Anemia * Baseline hemoglobin appears to be around 11 Endocrine: Blood glucose within acceptable limits CODE STATUS: DO NOT RESUSCITATE in event of cardiac arrest Vascular access: Would continue left internal jugular vein central venous catheter for additional 24 hours in case vasoactive medications need to be restarted. * Patient unlikely to be candidate for dialysis however would avoid PICC solely for possible future need of dialysis Stable for downgraded to telemetry status Consults & Procedures Consultants: Gastroenterology Procedures: Left internal jugular CVL 03/25/2017 Radial arterial line 03/25/2017 Data Medications: Current Inpatient Medications Medications (Trade) Dose Ordered Sig/Suman Route Start Time Stop Time Status Last Admin Dose Admin Ioversol (Optiray 320) 100 ml UD PRN IV 03/25/17 17:15 03/29/17 17:14 Albumin Human (Albumin 25%) 12.5 gm Q30M IV 03/26/17 08:00 03/26/17 11:31 Ferrous Gluconate (Ferrous Gluconate Tab) 324 mg BID PO 03/25/17 21:00 04/24/17 20:59 03/25/17 21:17 324 MG Insulin Glargine (Lantus Solostar Pen) 25 units BID SC 03/25/17 21:00 04/24/17 20:59 03/25/17 21:13 25 UNITS Lactulose (Chronulac Syrup) 30 gm TID PO 03/25/17 21:00 04/24/17 20:59 03/25/17 21:15 30 GM Magnesium Oxide (Mag-Ox Tab) 400 mg BID PO 03/25/17 21:00 04/24/17 20:59 03/25/17 21:16 400 MG Pantoprazole Sodium (Protonix Tab) 40 mg BID PO 03/25/17 21:00 04/24/17 20:59 03/25/17 21:16 40 MG Rifaximin (Xifaxan Tab) 550 mg BID PO 03/25/17 21:00 04/24/17 20:59 03/25/17 21:17 550 MG Hydroxyzine HCl (Vistaril Tab) 25 mg HS PRN PO 03/25/17 19:30 04/24/17 19:29 Potassium Chloride (Klor-Con Tab) 20 meq DAILY PO 03/26/17 09:00 04/25/17 08:59 Rosuvastatin Calcium (Crestor Tab) 40 mg DAILY PO 03/26/17 09:00 04/25/17 08:59 Albuterol/ Ipratropium (Duoneb) 3 ml QIDR PRN INH 03/25/17 19:30 04/24/17 19:29 Insulin Aspart (novoLOG ASPART) SLIDING SCALE If C... ACHS SC 03/25/17 21:00 04/24/17 20:59 Glucose (Glucose 40% Gel) 15-30 GRAMS 15 GRAMS... UD PRN PO 03/25/17 19:30 04/24/17 19:29 Glucose (Glucose Chew Tab) 4-8 Tablets 4 Tabl... UD PRN PO 03/25/17 19:30 04/24/17 19:29 Dextrose (Dextrose 50% 50ML Syringe) 25-50ML OF 50% DW IV FOR... UD PRN IV 03/25/17 19:30 04/24/17 19:29 Glucagon (Glucagon Inj) 1 mg UD PRN SQ 03/25/17 19:30 04/24/17 19:29 Vasopressin 50 units/Sodium Chloride 502.5 ml @ 0 mls/hr Q0M PRN IV 03/25/17 19:53 04/24/17 19:52 03/25/17 20:43 12 MLS/HR Parenteral Electrolyte Solution 1,000 ml @ 50 mls/hr Q20H IV 03/25/17 20:30 04/24/17 20:29 Future Hold 03/25/17 20:29 50 MLS/HR Albumin Human (Albumin 25%) 12.5 gm Q30M IV 03/27/17 08:00 03/27/17 11:31 Heparin Sodium (Porcine) (Heparin 10 Unit/ ml 5 ml Flush) 5 ml PRN PRN FLUSH 03/26/17 01:30 04/25/17 01:29 Potassium Chloride (Klor-Con Tab) 20 meq ONE ONCE PO 03/26/17 13:00 03/26/17 13:01 Vital Signs: Date Time Temp Pulse Resp B/P (MAP) Pulse Ox O2 Delivery O2 Flow Rate FiO2 03/26/17 06:00 74 20 135/86 (102) 95 Room Air 128/42 (70) 03/26/17 04:00 36.8 71 20 135/49 (77) 96 Room Air 128/43 (71) 03/26/17 04:00 Room Air 03/26/17 02:00 69 17 145/66 (92) 94 152/50 (84) 03/26/17 01:00 71 19 144/48 (80) 96 03/26/17 00:13 96 Room Air 03/26/17 00:00 36.9 64 14 138/66 (90) 96 Room Air 134/47 (76) 03/25/17 23:00 74 21 128/59 (82) 95 Room Air 135/56 (82) 03/25/17 22:00 66 20 112/56 (74) 98 Room Air 119/47 (71) 03/25/17 21:30 63 16 120/52 (74) 97 Room Air 03/25/17 21:20 36.8 64 16 98/45 100 Room Air 03/25/17 21:15 65 15 120/51 (74) 97 Room Air 03/25/17 21:00 62 15 118/53 (74) 97 Room Air 03/25/17 20:45 66 16 86/48 (61) 99 Room Air 03/25/17 20:30 65 17 98/45 (62) 99 Room Air 03/25/17 19:41 61 18 95/38 95 Room Air 03/25/17 19:10 83/40 03/25/17 18:58 58 18 86/39 97 Room Air 03/25/17 18:30 60 17 69/37 95 Room Air 03/25/17 18:00 58 15 95/43 95 Room Air 03/25/17 17:45 58 15 95/40 96 Room Air 03/25/17 17:41 63 16 90/43 97 Room Air 03/25/17 17:28 58 15 90/37 97 Room Air 03/25/17 17:21 59 16 88/34 95 Room Air 03/25/17 16:51 99 Nasal Cannula 2.0 03/25/17 16:51 64 20 66/41 97 Room Air 03/25/17 16:46 63 66/33 03/25/17 16:44 64 03/25/17 16:41 36.5 64 19 81/39 95 Room Air Laboratory Results: Last 24 Hours Test 03/25/17 16:45 03/25/17 16:53 03/25/17 16:56 03/25/17 16:57 White Blood Count 6.16 K/uL Red Blood Count 3.25 M/uL Hemoglobin 10.1 g/dL Hematocrit 31.0 % Mean Corpuscular Volume 95.4 fL Mean Corpuscular Hemoglobin 31.1 pg Mean Corpuscular Hemoglobin Concent 32.6 g/dl Platelet Count 106 K/uL Mean Platelet Volume 11.2 fL Neutrophils (%) (Auto) 72.4 % Lymphocytes (%) (Auto) 13.0 % Monocytes (%) (Auto) 12.3 % Eosinophils (%) (Auto) 1.6 % Basophils (%) (Auto) 0.5 % Neutrophils # (Auto) 4.46 K/uL Lymphocytes # (Auto) 0.80 K/uL Monocytes # (Auto) 0.76 K/uL Eosinophils # (Auto) 0.10 K/uL Basophils # (Auto) 0.03 K/uL RDW Standard Deviation 62.3 fL RDW Coefficient of Variation 18.0 % Immature Granulocyte % (Auto) 0.2 % Immature Granulocyte # (Auto) 0.01 K/uL Prothrombin Time 12.2 SECONDS Prothromb Time International Ratio 1.1 Activated Partial Thromboplast Time 25.3 SECONDS Partial Thromboplastin Ratio 1.0 Sodium Level 144 mmol/L Potassium Level 3.8 mmol/L Chloride Level 111 mmol/L Carbon Dioxide Level 24 mmol/L Anion Gap 9.0 mmol/L 19.0 mmol/L Blood Urea Nitrogen 20 mg/dl Creatinine 1.70 mg/dl Est Creatinine Clear Calc Drug Dose 34.0 ml/min Estimated GFR () 43.8 Estimated GFR (Non- 37.8 BUN/Creatinine Ratio 11.7 Random Glucose 108 mg/dl Calcium Level 9.3 mg/dl Total Bilirubin 0.7 mg/dl Direct Bilirubin 0.2 mg/dl Aspartate Amino Transf (AST/SGOT) 74 U/L Alanine Aminotransferase (ALT/SGPT) 45 U/L Alkaline Phosphatase 184 U/L Total Protein 5.7 gm/dl Albumin 2.7 gm/dl Lipase 415 U/L Procalcitonin 0.32 ng/ml Random Cortisol 24.36 mcg/dl Bedside Lactic Acid Venous 1.36 mmol/L Bedside Troponin I < 0.030 ng/ml Bedside Hemoglobin 9.9 g/dl Bedside Hematocrit 29 % Bedside Sodium 142 mEq/L Bedside Potassium 3.6 mEq/L Bedside Chloride 105 mEq/L Bedside Total CO2 22 mEq/l Bedside Blood Urea Nitrogen 20 mg/dl Bedside Creatinine 1.5 mg/dl Bedside Glucose (other) 106 mg/dl Bedside Ionized Calcium ([place]) 1.27 mmol/l Test 03/25/17 17:38 03/25/17 18:57 03/25/17 19:02 03/25/17 19:20 Ammonia 153.0 umol/L Bedside Hemoglobin 8.8 g/dl Bedside Hematocrit 26 % Bedside Sodium 142 mEq/L Bedside Potassium 3.8 mEq/L Bedside Chloride 108 mEq/L Bedside Total CO2 22 mEq/l Anion Gap 17.0 mmol/L Bedside Blood Urea Nitrogen 21 mg/dl Bedside Creatinine 1.4 mg/dl Bedside Glucose (other) 66 mg/dl Bedside Ionized Calcium ([place]) 1.19 mmol/l Bedside Lactic Acid Venous 1.27 mmol/L Urine Color YELLOW Urine Appearance CLEAR Urine pH 7.0 Urine Specific [place] 1.026 Urine Protein NEG Urine Glucose (UA) 3+ Urine Ketones NEG Urine Occult Blood NEG Urine Nitrite NEG Urine Bilirubin NEG Urine Urobilinogen NEG Urine Leukocyte Esterase NEG Test 03/25/17 21:10 03/25/17 23:34 03/26/17 05:20 03/26/17 06:31 Bedside Glucose 95 mg/dl 82 mg/dl Hemoglobin 8.1 g/dL 8.1 g/dL Hematocrit 24.3 % 23.9 % White Blood Count 3.91 K/uL Red Blood Count 2.50 M/uL Mean Corpuscular Volume 95.6 fL Mean Corpuscular Hemoglobin 32.4 pg Mean Corpuscular Hemoglobin Concent 33.9 g/dl Platelet Count 57 K/uL Mean Platelet Volume 10.5 fL Neutrophils (%) (Auto) 72.9 % Lymphocytes (%) (Auto) 12.8 % Monocytes (%) (Auto) 12.0 % Eosinophils (%) (Auto) 1.5 % Basophils (%) (Auto) 0.8 % Neutrophils # (Auto) 2.85 K/uL Lymphocytes # (Auto) 0.50 K/uL Monocytes # (Auto) 0.47 K/uL Eosinophils # (Auto) 0.06 K/uL Basophils # (Auto) 0.03 K/uL RDW Standard Deviation 62.6 fL RDW Coefficient of Variation 18.0 % Immature Granulocyte % (Auto) 0.0 % Immature Granulocyte # (Auto) 0.00 K/uL Large Platelets 1+ Ovalocytes 1+ Sodium Level 145 mmol/L Potassium Level 3.6 mmol/L Chloride Level 114 mmol/L Carbon Dioxide Level 22 mmol/L Anion Gap 9.0 mmol/L Blood Urea Nitrogen 18 mg/dl Creatinine 1.30 mg/dl Est Creatinine Clear Calc Drug Dose 44.9 ml/min Estimated GFR () 60.6 Estimated GFR (Non- 52.3 BUN/Creatinine Ratio 13.8 Random Glucose 63 mg/dl Calcium Level 8.9 mg/dl Phosphorus Level 2.7 mg/dl Magnesium Level 2.3 mg/dl Total Bilirubin 0.8 mg/dl Direct Bilirubin 0.3 mg/dl Aspartate Amino Transf (AST/SGOT) 58 U/L Alanine Aminotransferase (ALT/SGPT) 37 U/L Alkaline Phosphatase 134 U/L Ammonia 102.0 umol/L Total Protein 6.0 gm/dl Albumin 3.8 gm/dl Problem Qualifiers (1) Hypotension: Hypotension type: unspecified hypotension type Qualified Codes: I95.9 - Hypotension, unspecified (2) Anemia: Anemia type: unspecified type Qualified Codes: D64.9 - Anemia, unspecified
--- NOTE | 2017-03-26 11:28 | Gastrointestinal Consultation ---
Gastrointestinal Consultation Date of Consultation: Mar 26, 2017 History of Present Illness Patient is a 76 year old male who presented to the ER with CC of weakness and transient abdominal pain. He is a known KLEIN Cirrhotic with CAD, CKD, and ascites/HE without known varices (last EGD 06/2016) and c/o one day of weakness and generalized abdominal pain. No infectious complaints or concerns, no cough, chills, no recent sick contacts. He presented and was found to have low sbp in the 60's without mentation change , was given ivf, and had brown stool on rectal examination. He denies any melena , hematemesis, or hematochezia. Cr was elevated with mild ARF, treated with vasopressin, albumin, with improvement overnight. Pancreatic enzymes mildly elevated. CT scan was non revealing of issues acute or chronic. Today has normal BP, off vasopressors, feels well, wants to go home and states he is back to baseline. Sitting in chair without complaints. No signs or concerns of GI bleeding Past Medical/Surgical History Medical Problems: (1) Anemia Status: Chronic (2) CHF (congestive heart failure) Status: Acute (3) Diffuse abdominal pain Status: Acute (4) GI bleed Status: Chronic (5) Hyperammonemia Status: Acute (6) Hyperammonemia Status: Acute (7) Hypomagnesemia Status: Acute (8) Hypotension Status: Acute (9) Hypotension Status: Acute (10) Left sided chest pain Status: Acute (11) Rectal bleeding Status: Acute (12) Renal insufficiency Status: Acute (13) Renal insufficiency Status: Acute (14) Substernal precordial chest pain Status: Acute (15) Substernal precordial chest pain Status: Acute (16) Thrombocytopenia Status: Acute Family History FHx: heart disease FATHER ( from [place] age 65) BROTHER ([place] in his 40s) Social History Smoking Status: Former Smoker Alcohol Use: none Drug Use: none Housing Status: lives with family Occupation Status: retired Allergies Coded Allergies: PRASHANT Inhibitors (Verified Allergy, Severe, ANGIOEDEMA from 10/10/11 ED adm, 03/25/17) Lisinopril (Verified Allergy, Severe, Edema - face, lips and tongue, ) Simvastatin (Verified Allergy, Unknown, RASH, SORE ALL OVER. 2013: Uses Crestor, 03/25/17) Current Medications Home Meds and Scripts Medications Dose Route/Sig Max Daily Dose Days Date Category Dose Instructions Ventolin Hfa (Albuterol) 200 Puffs/57031 Mcg Aers 2 Puffs INH QID PRN 03/03/17 Reported Vistaril (Hydroxyzine Pamoate) 25 Mg Cap 25 Mg PO HS PRN 03/03/17 Reported Potassium Chloride Er (Potassium Chloride) 10 Meq Tab 20 Meq PO DAILY 03/03/17 Reported Novolog Flexpen (Insulin Aspart) 100 Units/Ml Inj 45 Units SC AC 03/03/17 Reported Jardiance (Empagliflozin) 10 Mg Tab 10 Mg PO QAM 07/03/16 Reported Ferrous Gluconate 324 Mg Tab 324 Mg PO BID 07/03/16 Reported Lantus Solostar (Insulin Glargine) 100 Unit/Ml Inj 45 Units SC AMPM 06/21/16 Reported Tamsulosin HCl 0.4 Mg Cap 0.4 Mg PO DAILY 05/30/16 Reported Pantoprazole Sodium (Pantoprazole) 40 Mg Tab 40 Mg PO BID 05/30/16 Reported Chronulac (Lactulose) 10 Gm/15 Ml Syrp 30 Ml PO TID 05/30/16 Reported TAKE 30 ML BY MOUTH 3 TIMES A DAY. HOLD ADDITIONAL DOSE FOR THAT DAY IF ALREADY HAD 3 BOWEL MOVEMENTS Rosuvastatin Calcium 40 Mg Tab 40 Mg PO DAILY 05/30/16 Reported Furosemide 40 Mg Tab 40 Mg PO DAILY 05/30/16 Reported Losartan Potassium 25 Mg Tab 25 Mg PO DAILY 05/30/16 Reported Lopressor (Metoprolol Tartrate) 25 Mg Tab 25 Mg PO BID 05/30/16 Reported Imdur Ext Rel (Isosorbide Mononitrate) 30 Mg Tabcr 30 Mg PO QAM 05/30/16 Reported Xifaxan (Rifaximin) 550 Mg Tab 550 Mg PO BID 01/07/16 Reported Mag-Ox (Magnesium Oxide) 400 Mg Tab 400 Mg PO BID 01/07/16 Reported Nitrostat (Nitroglycerin) 0.4 Mg Tab 0.4 Mg UT UD PRN 10/10/[address] ONE TABLET UNDER THE TONGUE EVERY 5 MINUTES FOR UP TO 3 DOSES IF NEEDED FOR CHEST PAIN Review of Systems Constitutional: No see HPI, No fever, No chills, No sweats, No weight loss, No weakness, No fatigue, No problem reported Eyes: No see HPI, No worsening of vision, No eye pain, No redness, No discharge , No diplopia, No problem reported ENT: No see HPI, No hearing loss, No unusual epistaxis, No nasal symptoms, No sore throat, No tinnitus, No dental problems, No trouble swallowing, No pain on swallowing, No problem reported Respiratory: No see HPI, No cough, No sputum, No wheezing, No shortness of breath, No dyspnea on exertion, No dyspnea at rest, No hemoptysis, No problem reported Cardiac: No see HPI, No chest pain, No orthopnea, No PND, No edema, No claudication, No palpitations, No problem reported Abdomen: No see HPI, No pain, No nausea, No vomiting, No diarrhea, No constipation, No GI bleeding, No dysphagia, No odynophagia, No acolic stools, No jaundice, No dark urine, No problem reported Musculoskeletal: No see HPI, No joint pain, No muscle pain, No swelling, No calf pain, No problem reported Physical Exam Date Time Temp Pulse Resp B/P (MAP) Pulse Ox O2 Delivery O2 Flow Rate FiO2 03/26/17 09:22 76 18 111/42 (65) 95 137/73 (94) 03/26/17 08:15 Room Air 03/26/17 08:01 36.8 74 20 129/48 (75) 93 Room Air 03/26/17 08:00 72 20 126/48 (74) 93 03/26/17 07:01 75 20 128/42 (70) 93 03/26/17 07:00 75 19 122/41 (68) 92 03/26/17 06:00 74 20 135/86 (102) 95 Room Air 128/42 (70) 03/26/17 04:00 36.8 71 20 135/49 (77) 96 Room Air 128/43 (71) 03/26/17 04:00 Room Air 03/26/17 02:00 69 17 145/66 (92) 94 152/50 (84) 03/26/17 01:00 71 19 144/48 (80) 96 03/26/17 00:13 96 Room Air 03/26/17 00:00 36.9 64 14 138/66 (90) 96 Room Air 134/47 (76) 03/25/17 23:00 74 21 128/59 (82) 95 Room Air 135/56 (82) 03/25/17 22:00 66 20 112/56 (74) 98 Room Air 119/47 (71) 03/25/17 21:30 63 16 120/52 (74) 97 Room Air 03/25/17 21:20 36.8 64 16 98/45 100 Room Air 03/25/17 21:15 65 15 120/51 (74) 97 Room Air 03/25/17 21:00 62 15 118/53 (74) 97 Room Air 03/25/17 20:45 66 16 86/48 (61) 99 Room Air 03/25/17 20:30 65 17 98/45 (62) 99 Room Air 03/25/17 19:41 61 18 95/38 95 Room Air 03/25/17 19:10 83/40 03/25/17 18:58 58 18 86/39 97 Room Air 03/25/17 18:30 60 17 69/37 95 Room Air 03/25/17 18:00 58 15 95/43 95 Room Air 03/25/17 17:45 58 15 95/40 96 Room Air 03/25/17 17:41 63 16 90/43 97 Room Air 03/25/17 17:28 58 15 90/37 97 Room Air 03/25/17 17:21 59 16 88/34 95 Room Air 03/25/17 16:51 99 Nasal Cannula 2.0 03/25/17 16:51 64 20 66/41 97 Room Air 03/25/17 16:46 63 66/33 03/25/17 16:44 64 03/25/17 16:41 36.5 64 19 81/39 95 Room Air General Appearance: WD/WN, no apparent distress Eyes: normal inspection ENT: normal ENT inspection Neck: supple, no adenopathy Respiratory/Chest: chest non-tender, lungs clear Cardiovascular: regular rate, rhythm, no edema, no gallop Abdomen: normal bowel sounds, soft, + pertinent finding (protuberant) Extremities: normal range of motion Neurologic/Psych: spanish professor II-XII nml as tested, normal mood/affect, oriented x 3 Laboratory Results Last 24 Hours Test 03/25/17 16:45 03/25/17 16:53 03/25/17 16:56 03/25/17 16:57 White Blood Count 6.16 K/uL Red Blood Count 3.25 M/uL Hemoglobin 10.1 g/dL Hematocrit 31.0 % Mean Corpuscular Volume 95.4 fL Mean Corpuscular Hemoglobin 31.1 pg Mean Corpuscular Hemoglobin Concent 32.6 g/dl Platelet Count 106 K/uL Mean Platelet Volume 11.2 fL Neutrophils (%) (Auto) 72.4 % Lymphocytes (%) (Auto) 13.0 % Monocytes (%) (Auto) 12.3 % Eosinophils (%) (Auto) 1.6 % Basophils (%) (Auto) 0.5 % Neutrophils # (Auto) 4.46 K/uL Lymphocytes # (Auto) 0.80 K/uL Monocytes # (Auto) 0.76 K/uL Eosinophils # (Auto) 0.10 K/uL Basophils # (Auto) 0.03 K/uL RDW Standard Deviation 62.3 fL RDW Coefficient of Variation 18.0 % Immature Granulocyte % (Auto) 0.2 % Immature Granulocyte # (Auto) 0.01 K/uL Prothrombin Time 12.2 SECONDS Prothromb Time International Ratio 1.1 Activated Partial Thromboplast Time 25.3 SECONDS Partial Thromboplastin Ratio 1.0 Sodium Level 144 mmol/L Potassium Level 3.8 mmol/L Chloride Level 111 mmol/L Carbon Dioxide Level 24 mmol/L Anion Gap 9.0 mmol/L 19.0 mmol/L Blood Urea Nitrogen 20 mg/dl Creatinine 1.70 mg/dl Est Creatinine Clear Calc Drug Dose 34.0 ml/min Estimated GFR () 43.8 Estimated GFR (Non- 37.8 BUN/Creatinine Ratio 11.7 Random Glucose 108 mg/dl Calcium Level 9.3 mg/dl Total Bilirubin 0.7 mg/dl Direct Bilirubin 0.2 mg/dl Aspartate Amino Transf (AST/SGOT) 74 U/L Alanine Aminotransferase (ALT/SGPT) 45 U/L Alkaline Phosphatase 184 U/L Total Protein 5.7 gm/dl Albumin 2.7 gm/dl Lipase 415 U/L Procalcitonin 0.32 ng/ml Random Cortisol 24.36 mcg/dl Bedside Lactic Acid Venous 1.36 mmol/L Bedside Troponin I < 0.030 ng/ml Bedside Hemoglobin 9.9 g/dl Bedside Hematocrit 29 % Bedside Sodium 142 mEq/L Bedside Potassium 3.6 mEq/L Bedside Chloride 105 mEq/L Bedside Total CO2 22 mEq/l Bedside Blood Urea Nitrogen 20 mg/dl Bedside Creatinine 1.5 mg/dl Bedside Glucose (other) 106 mg/dl Bedside Ionized Calcium ([place]) 1.27 mmol/l Test 03/25/17 17:38 03/25/17 18:57 03/25/17 19:02 03/25/17 19:20 Ammonia 153.0 umol/L Bedside Hemoglobin 8.8 g/dl Bedside Hematocrit 26 % Bedside Sodium 142 mEq/L Bedside Potassium 3.8 mEq/L Bedside Chloride 108 mEq/L Bedside Total CO2 22 mEq/l Anion Gap 17.0 mmol/L Bedside Blood Urea Nitrogen 21 mg/dl Bedside Creatinine 1.4 mg/dl Bedside Glucose (other) 66 mg/dl Bedside Ionized Calcium ([place]) 1.19 mmol/l Bedside Lactic Acid Venous 1.27 mmol/L Urine Color YELLOW Urine Appearance CLEAR Urine pH 7.0 Urine Specific [place] 1.026 Urine Protein NEG Urine Glucose (UA) 3+ Urine Ketones NEG Urine Occult Blood NEG Urine Nitrite NEG Urine Bilirubin NEG Urine Urobilinogen NEG Urine Leukocyte Esterase NEG Test 03/25/17 21:10 03/25/17 23:34 03/26/17 05:20 03/26/17 06:31 Bedside Glucose 95 mg/dl 82 mg/dl Hemoglobin 8.1 g/dL 8.1 g/dL Hematocrit 24.3 % 23.9 % White Blood Count 3.91 K/uL Red Blood Count 2.50 M/uL Mean Corpuscular Volume 95.6 fL Mean Corpuscular Hemoglobin 32.4 pg Mean Corpuscular Hemoglobin Concent 33.9 g/dl Platelet Count 57 K/uL Mean Platelet Volume 10.5 fL Neutrophils (%) (Auto) 72.9 % Lymphocytes (%) (Auto) 12.8 % Monocytes (%) (Auto) 12.0 % Eosinophils (%) (Auto) 1.5 % Basophils (%) (Auto) 0.8 % Neutrophils # (Auto) 2.85 K/uL Lymphocytes # (Auto) 0.50 K/uL Monocytes # (Auto) 0.47 K/uL Eosinophils # (Auto) 0.06 K/uL Basophils # (Auto) 0.03 K/uL RDW Standard Deviation 62.6 fL RDW Coefficient of Variation 18.0 % Immature Granulocyte % (Auto) 0.0 % Immature Granulocyte # (Auto) 0.00 K/uL Large Platelets 1+ Ovalocytes 1+ Sodium Level 145 mmol/L Potassium Level 3.6 mmol/L Chloride Level 114 mmol/L Carbon Dioxide Level 22 mmol/L Anion Gap 9.0 mmol/L Blood Urea Nitrogen 18 mg/dl Creatinine 1.30 mg/dl Est Creatinine Clear Calc Drug Dose 44.9 ml/min Estimated GFR () 60.6 Estimated GFR (Non- 52.3 BUN/Creatinine Ratio 13.8 Random Glucose 63 mg/dl Calcium Level 8.9 mg/dl Phosphorus Level 2.7 mg/dl Magnesium Level 2.3 mg/dl Total Bilirubin 0.8 mg/dl Direct Bilirubin 0.3 mg/dl Aspartate Amino Transf (AST/SGOT) 58 U/L Alanine Aminotransferase (ALT/SGPT) 37 U/L Alkaline Phosphatase 134 U/L Ammonia 102.0 umol/L Total Protein 6.0 gm/dl Albumin 3.8 gm/dl Test 03/26/17 11:08 Bedside Glucose 175 mg/dl Impression Patient is a 76 year old male admitted with known KLEIN clinical cirrhosis adm with weakness, hypotension. Plan -No evidence of GI bleeding, no evidence of obvious infection, but has broad differential of presentation including overmedication with multiple anti- hypertensives, dehydration/volume depletion with diuretics, infectious etiologies. -Agree with work up and plan thus far, Cr improved, clinically improved -Pancreatitis could also be a cause, no ongoing concern for complications or labs could be up from hypotension -Advance diet as tolerated -Call with questions or clinical change in status
[2017-03-26] MEDS: MIDODRINE 2.5 MG TAB PO SCH ×2 (11:56→17:06)
[2017-03-26 12:31] LABS: HEMATOCRIT 25.7 % (42-52)
[2017-03-26] MEDS ORDERED: POTASSIUM CHLORIDE 20 MEQ TABCR PO ONE (13:00)
[2017-03-26] MEDS: OCTREOTIDE ACETATE 100 MCG/ML VIAL SQ SCH ×2 (14:13→20:46)
[2017-03-26] MEDS ORDERED: VANCOMYCIN INJ 1,300 MG in SODIUM CHLORIDE 0.9% 250ML 250 ML IV SCH (15:00)
--- NOTE | 2017-03-26 18:06 | Progress Note ---
Medicine Progress Note Date & Time of Visit: Mar 26, 2017 at 17:43. Subjective Patient denies any complaints, is anxious to go home. States he felt lousy yesterday and recalls coming to the hospital, but reports feeling much better today. Patient did require pressors overnight, now off. No other overnight events noted. Tolerating PO. Objective Last 8 Hrs Date Time Temp Pulse Resp B/P (MAP) Pulse Ox O2 Delivery O2 Flow Rate FiO2 03/26/17 17:34 81 12 94 Nasal Cannula 2.0 03/26/17 16:00 36.7 79 18 126/73 (90) 94 Nasal Cannula 2.0 03/26/17 16:00 Nasal Cannula 2.0 03/26/17 12:30 36.7 82 24 135/70 (91) 95 Room Air 03/26/17 12:00 Room Air Physical Exam: GENERAL: Patient is in no acute distress. HEENT: No acute trauma, normocephalic, mucous membranes moist, no nasal congestion, no scleral icterus. NECK: No stridor, trachea is midline. LUNGS: Diminished bases bilaterally, no wheeze, no rhonchi, breath sounds equal. HEART: Without murmurs gallops or rubs, regular rate and rhythm. ABDOMEN: Soft, nontender, bowel sounds positive, distended EXTREMITIES: No cyanosis or edema NEUROLOGIC: Oriented x 3, no acute motor or sensory deficits, no focal weakness. SKIN: No rash, no jaundice, no diaphoresis. Laboratory Results: Last 24 Hours Test 03/25/17 18:57 03/25/17 19:02 03/25/17 19:20 03/25/17 21:10 Bedside Hemoglobin 8.8 g/dl Bedside Hematocrit 26 % Bedside Sodium 142 mEq/L Bedside Potassium 3.8 mEq/L Bedside Chloride 108 mEq/L Bedside Total CO2 22 mEq/l Anion Gap 17.0 mmol/L Bedside Blood Urea Nitrogen 21 mg/dl Bedside Creatinine 1.4 mg/dl Bedside Glucose (other) 66 mg/dl Bedside Ionized Calcium ([place]) 1.19 mmol/l Bedside Lactic Acid Venous 1.27 mmol/L Urine Color YELLOW Urine Appearance CLEAR Urine pH 7.0 Urine Specific [place] 1.026 Urine Protein NEG Urine Glucose (UA) 3+ Urine Ketones NEG Urine Occult Blood NEG Urine Nitrite NEG Urine Bilirubin NEG Urine Urobilinogen NEG Urine Leukocyte Esterase NEG Bedside Glucose 95 mg/dl Test 03/25/17 23:34 03/26/17 05:20 03/26/17 06:31 03/26/17 11:08 Hemoglobin 8.1 g/dL 8.1 g/dL Hematocrit 24.3 % 23.9 % White Blood Count 3.91 K/uL Red Blood Count 2.50 M/uL Mean Corpuscular Volume 95.6 fL Mean Corpuscular Hemoglobin 32.4 pg Mean Corpuscular Hemoglobin Concent 33.9 g/dl Platelet Count 57 K/uL Mean Platelet Volume 10.5 fL Neutrophils (%) (Auto) 72.9 % Lymphocytes (%) (Auto) 12.8 % Monocytes (%) (Auto) 12.0 % Eosinophils (%) (Auto) 1.5 % Basophils (%) (Auto) 0.8 % Neutrophils # (Auto) 2.85 K/uL Lymphocytes # (Auto) 0.50 K/uL Monocytes # (Auto) 0.47 K/uL Eosinophils # (Auto) 0.06 K/uL Basophils # (Auto) 0.03 K/uL RDW Standard Deviation 62.6 fL RDW Coefficient of Variation 18.0 % Immature Granulocyte % (Auto) 0.0 % Immature Granulocyte # (Auto) 0.00 K/uL Large Platelets 1+ Ovalocytes 1+ Sodium Level 145 mmol/L Potassium Level 3.6 mmol/L Chloride Level 114 mmol/L Carbon Dioxide Level 22 mmol/L Anion Gap 9.0 mmol/L Blood Urea Nitrogen 18 mg/dl Creatinine 1.30 mg/dl Est Creatinine Clear Calc Drug Dose 44.9 ml/min Estimated GFR () 60.6 Estimated GFR (Non- 52.3 BUN/Creatinine Ratio 13.8 Random Glucose 63 mg/dl Calcium Level 8.9 mg/dl Phosphorus Level 2.7 mg/dl Magnesium Level 2.3 mg/dl Total Bilirubin 0.8 mg/dl Direct Bilirubin 0.3 mg/dl Aspartate Amino Transf (AST/SGOT) 58 U/L Alanine Aminotransferase (ALT/SGPT) 37 U/L Alkaline Phosphatase 134 U/L Ammonia 102.0 umol/L Total Protein 6.0 gm/dl Albumin 3.8 gm/dl Bedside Glucose 82 mg/dl 175 mg/dl Test 03/26/17 11:56 03/26/17 15:54 Hemoglobin 8.2 g/dL Hematocrit 25.7 % Bedside Glucose 174 mg/dl Date/Time Source Procedure Growth Status 03/25/17 18:25 Blood Blood Culture Pending Received 03/25/17 18:23 Blood Blood Culture Pending Received 03/25/17 19:20 Urine,Catheterized Urine Culture - Preliminary NO GROWTH - LESS THAN 1,000 COLONIES/... Resulted Assessment & Plan Hypotension: -being managed as possible hepatorenal syndrome -other possible etiologies includes liver disease, hypovolemia/intravascular depletion from diuretics and low albumin, or less likely infectious source -CXR/UA/CT abd negative. Normal lactate and procalcitonin -was given aggressive IV fluid and was on vasopressors until this AM -had an arterial line central line that were placed in ICU -patient given 2 days of albumin IV -started on midodrine -no active bleeding seen but was guaiac positive -was started on empiric IV antibiotics, now off as no convincing source of infection -cultures: urine negative, MRSA swab negative, blood cultures pending -was in ICU overnight, now transferring to telemetry today Hepatic Encephalopathy: -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 -hyperammonemia:153-->109 -continued on lactulose TID, Rifaximin BID -will resume Lasix when hypotension resolved -no ascites on CT abd, no abd pain on exam although clinically abdomen is protuberant -GI consulted as well GLENYS on CKD Stage III: -baseline Cr is 1.2 -was given some IV fluids, and also treated with albumin infusion x2 days -avoid nephrotoxic agents -continue to hold lasix and losartan for now DM Type II: -insulin dependent -Last HbA1c: 7.5 % -continue Lantus + correction scale insulin -monitor BSG and adjust dose if necessary -hold PO meds -BSG AC HS AORTIC STENOSIS: -moderate to severe on last TTE -caution with fluids HYPERLIPIDEMIA: -continue statin CAD: -s/p stent placement -stable; no related issues presently -continue BB, Statin -Imdur, ARB held secondary to hypotension Acute anemia on Chronic Iron deficiency Anemia: -baseline Hb in 11's -continue Iron supplementation -patient was also started on octreotide -Guaiac positive in ED -monitor H&H closely -GI consulted BPH: -was on Flomax, but held this admission due to hypotension GERD: -continue PPI DVT Prophylaxis: -SCDs Current Inpatient Medications: Current Inpatient Medications Medications (Trade) Dose Ordered Sig/Suman Route Start Time Stop Time Status Last Admin Dose Admin Ioversol (Optiray 320) 100 ml UD PRN IV 03/25/17 17:15 03/29/17 17:14 Ferrous Gluconate (Ferrous Gluconate Tab) 324 mg BID PO 03/25/17 21:00 04/24/17 20:59 03/26/17 08:51 324 MG Insulin Glargine (Lantus Solostar Pen) 25 units BID SC 03/25/17 21:00 04/24/17 20:59 03/26/17 08:56 25 UNITS Lactulose (Chronulac Syrup) 30 gm TID PO 03/25/17 21:00 04/24/17 20:59 03/26/17 14:13 30 GM Magnesium Oxide (Mag-Ox Tab) 400 mg BID PO 03/25/17 21:00 04/24/17 20:59 03/26/17 08:52 400 MG Pantoprazole Sodium (Protonix Tab) 40 mg BID PO 03/25/17 21:00 04/24/17 20:59 03/26/17 08:52 40 MG Rifaximin (Xifaxan Tab) 550 mg BID PO 03/25/17 21:00 04/24/17 20:59 03/26/17 08:52 550 MG Hydroxyzine HCl (Vistaril Tab) 25 mg HS PRN PO 03/25/17 19:30 04/24/17 19:29 Potassium Chloride (Klor-Con Tab) 20 meq DAILY PO 03/26/17 09:00 04/25/17 08:59 03/26/17 08:52 20 MEQ Rosuvastatin Calcium (Crestor Tab) 40 mg DAILY PO 03/26/17 09:00 04/25/17 08:59 03/26/17 08:50 40 MG Albuterol/ Ipratropium (Duoneb) 3 ml QIDR PRN INH 03/25/17 19:30 04/24/17 19:29 03/26/17 17:34 3 ML Insulin Aspart (novoLOG ASPART) SLIDING SCALE If C... ACHS SC 03/25/17 21:00 04/24/17 20:59 03/26/17 17:10 3 UNITS Glucose (Glucose 40% Gel) 15-30 GRAMS 15 GRAMS... UD PRN PO 03/25/17 19:30 04/24/17 19:29 Glucose (Glucose Chew Tab) 4-8 Tablets 4 Tabl... UD PRN PO 03/25/17 19:30 04/24/17 19:29 Dextrose (Dextrose 50% 50ML Syringe) 25-50ML OF 50% DW IV FOR... UD PRN IV 03/25/17 19:30 04/24/17 19:29 Glucagon (Glucagon Inj) 1 mg UD PRN SQ 03/25/17 19:30 04/24/17 19:29 Heparin Sodium (Porcine) (Heparin 10 Unit/ ml 5 ml Flush) 5 ml PRN PRN FLUSH 03/26/17 01:30 04/25/17 01:29 Midodrine (Proamatine Tab) 7.5 mg TID@08,12,17 PO 03/26/17 12:00 03/27/17 08:01 03/26/17 17:06 7.5 MG Octreotide Acetate (Sandostatin Inj) 100 mcg Q8H SQ 03/26/17 12:00 03/27/17 04:01 03/26/17 14:13 100 MCG Albuterol/ Ipratropium (Duoneb) 3 ml QIDR INH 03/26/17 20:00 04/25/17 19:59 UNV
[2017-03-26 18:36] LABS: HEMATOCRIT 25.9 % (42-52)
[2017-03-26] MEDS: ALBUT/IPRATROP 3MG/0.5MG NEB 3 ML VIAL INH SCH (20:14)
--- NOTE | 2017-03-26 20:16 | DIAGNOSTIC IMAGING REPORT ---
CHEST ONE VIEW PORTABLE CLINICAL HISTORY: SOB CONFUSION COMPARISON STUDY: 03/25/2017 FINDINGS: The heart remains mildly enlarged. There is a left internal jugular central venous catheter unchanged in position. There is interstitial thickening similar to the prior study. There is minor blunting of the lateral costophrenic angles. There is no focal pulmonary consolidation.[ IMPRESSION: No significant change from the prior study. Cardiomegaly and stable interstitial thickening. No evidence of focal pulmonary consolidation Electronically signed by: Paulino Kat M.D. 03/26/2017 8:14 PM Dictated Date/Time: 03/26/2017 8:14 PM
[2017-03-27] VITALS (14 sets, daily range): BP systolic 112–157; BP diastolic 60–82; PULSE 72–84; TEMP 36.7–37.2; O2SAT 90–96
[2017-03-27 03:59] LABS: HEMATOCRIT 26.9 % (42-52); MEAN CELL VOLUME 99.6 fL (80-100); MEAN CORPUSCULAR HEMOGLOBIN 31.1 pg (25-34); MEAN CORPUSCULAR HGB CONC 31.2 g/dl (32-36); MEAN PLATELET VOLUME 12.5 fL (7.4-10.4); PLATELET COUNT 65 K/uL (130-400)
[2017-03-27 04:17] LABS: BUN/CREATININE RATIO 13.1 (10-20); CALCIUM 9.3 mg/dl (8.5-10.1); CREATININE 1.7 mg/dl (0.60-1.40); POTASSIUM 4.4 mmol/L (3.5-5.1)
[2017-03-27 04:19] LABS: BASO % 0.4 %; BASO ABS # 0.03 K/uL (0-0.2); COMPLETE YES; IG% 0.3 %; LYMPH % 7.7 %; LYMPH ABS # 0.53 K/uL (1.2-3.4); NEUT % 79.6 %; TEAR DROP CELLS 1+
[2017-03-27] MEDS: INSULIN ASPART 100 UNITS/ML 3 ML PEN SC SCH ×4 (07:00→21:03)
[2017-03-27] MEDS: ALBUT/IPRATROP 3MG/0.5MG NEB 3 ML VIAL INH SCH ×3 (07:00→19:39)
[2017-03-27] MEDS: MIDODRINE 2.5 MG TAB PO SCH ×3 (07:44→16:44)
[2017-03-27] MEDS: POTASSIUM CHLORIDE 20 MEQ TABCR PO SCH (07:45)
[2017-03-27] MEDS: FERROUS GLUCONATE 324 MG TAB PO SCH ×3 (07:45→21:15)
[2017-03-27] MEDS: ROSUVASTATIN CALCIUM 20 MG TAB PO SCH (07:45)
[2017-03-27] MEDS: LACTULOSE SYRUP 30 GM/45 ML UDP PO SCH ×4 (07:45→21:15)
[2017-03-27] MEDS: PANTOprazole SOD 40 MG TAB PO SCH ×3 (07:46→21:15)
[2017-03-27] MEDS: RIFAXIMIN TAB 550 MG TAB PO SCH ×2 (07:46→21:01)
[2017-03-27] MEDS: MAGNESIUM OXIDE 400 MG TAB PO SCH ×3 (07:46→21:15)
[2017-03-27] MEDS ORDERED: ALBUMIN HUMAN 25% 12.5 GM/50 ML VIAL IV SCH (08:00)
[2017-03-27] MEDS: INSULIN GLARGINE SOLOSTAR 100 UNITS/ML 3 ML PEN SC SCH ×2 (08:01→21:04)
[2017-03-27] MEDS: OCTREOTIDE ACETATE 100 MCG/ML VIAL SQ SCH ×2 (09:39→13:14)
--- NOTE | 2017-03-27 12:50 | Gastroenterology Progress Note ---
Progress Note Date of Service: Mar 27, 2017 Subjective Pt evaluation today including: conversation w/ patient, physical exam Mildly confused, more disoriented, only with one BM since adm, Cr worse Medications Current Inpatient Medications Medications (Trade) Dose Ordered Sig/Suman Route Start Time Stop Time Status Last Admin Dose Admin Ioversol (Optiray 320) 100 ml UD PRN IV 03/25/17 17:15 03/29/17 17:14 Ferrous Gluconate (Ferrous Gluconate Tab) 324 mg BID PO 03/25/17 21:00 04/24/17 20:59 03/27/17 07:45 324 MG Insulin Glargine (Lantus Solostar Pen) 25 units BID SC 03/25/17 21:00 04/24/17 20:59 03/27/17 08:01 25 UNITS Lactulose (Chronulac Syrup) 30 gm TID PO 03/25/17 21:00 04/24/17 20:59 03/27/17 07:45 30 GM Magnesium Oxide (Mag-Ox Tab) 400 mg BID PO 03/25/17 21:00 04/24/17 20:59 03/27/17 07:46 400 MG Pantoprazole Sodium (Protonix Tab) 40 mg BID PO 03/25/17 21:00 04/24/17 20:59 03/27/17 07:46 40 MG Rifaximin (Xifaxan Tab) 550 mg BID PO 03/25/17 21:00 04/24/17 20:59 03/27/17 07:46 550 MG Hydroxyzine HCl (Vistaril Tab) 25 mg HS PRN PO 03/25/17 19:30 04/24/17 19:29 Potassium Chloride (Klor-Con Tab) 20 meq DAILY PO 03/26/17 09:00 04/25/17 08:59 03/27/17 07:45 20 MEQ Rosuvastatin Calcium (Crestor Tab) 40 mg DAILY PO 03/26/17 09:00 04/25/17 08:59 03/27/17 07:45 40 MG Albuterol/ Ipratropium (Duoneb) 3 ml QIDR PRN INH 03/25/17 19:30 04/24/17 19:29 03/26/17 17:34 3 ML Insulin Aspart (novoLOG ASPART) SLIDING SCALE If C... ACHS SC 03/25/17 21:00 04/24/17 20:59 03/26/17 20:45 1 UNITS Glucose (Glucose 40% Gel) 15-30 GRAMS 15 GRAMS... UD PRN PO 03/25/17 19:30 04/24/17 19:29 Glucose (Glucose Chew Tab) 4-8 Tablets 4 Tabl... UD PRN PO 03/25/17 19:30 04/24/17 19:29 Dextrose (Dextrose 50% 50ML Syringe) 25-50ML OF 50% DW IV FOR... UD PRN IV 03/25/17 19:30 04/24/17 19:29 Glucagon (Glucagon Inj) 1 mg UD PRN SQ 03/25/17 19:30 04/24/17 19:29 Heparin Sodium (Porcine) (Heparin 10 Unit/ ml 5 ml Flush) 5 ml PRN PRN FLUSH 03/26/17 01:30 04/25/17 01:29 Albuterol/ Ipratropium (Duoneb) 3 ml QIDR INH 03/26/17 20:00 04/25/17 19:59 03/27/17 11:17 3 ML Objective Vital Signs Date Time Temp Pulse Resp B/P (MAP) Pulse Ox O2 Delivery O2 Flow Rate FiO2 03/27/17 12:13 90 Nasal Cannula 3.0 03/27/17 11:38 37.0 80 20 131/82 (98) 93 Nasal Cannula 3.0 03/27/17 11:18 84 20 90 Nasal Cannula 3.0 03/27/17 08:01 90 Nasal Cannula 3.0 03/27/17 07:48 36.9 82 20 146/65 (92) 90 Nasal Cannula 3.0 03/27/17 07:01 74 15 96 Nasal Cannula 3.0 03/27/17 04:00 Nasal Cannula 3.0 03/27/17 03:00 36.7 82 26 157/68 (97) 93 Nasal Cannula 3.0 03/26/17 23:59 Nasal Cannula 2.0 03/26/17 23:35 37.3 84 24 152/72 (98) 92 Nasal Cannula 2.0 03/26/17 20:30 Nasal Cannula 2.0 03/26/17 20:00 81 18 94 Nasal Cannula 2.0 03/26/17 19:26 36.7 81 22 115/64 (81) 95 Nasal Cannula 2.0 03/26/17 17:34 81 12 94 Nasal Cannula 2.0 03/26/17 16:00 36.7 79 18 126/73 (90) 94 Nasal Cannula 2.0 03/26/17 16:00 Nasal Cannula 2.0 Physical Exam General Appearance: WD/WN, + pertinent finding (alert, moaning in sleep, but easily awakened) ENT: normal ENT inspection Neck: supple Respiratory/Chest: chest non-tender, lungs clear Cardiovascular: regular rate, rhythm, no edema Abdomen: normal bowel sounds, non tender, soft Extremities: normal range of motion, non-tender 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 tested, no motor/sensory deficits Skin: normal color, no jaundice Laboratory Results Last 24 Hours Test 03/26/17 15:54 03/26/17 18:26 03/26/17 20:06 03/27/17 03:30 Bedside Glucose 174 mg/dl 228 mg/dl Hemoglobin 8.2 g/dL 8.4 g/dL Hematocrit 25.9 % 26.9 % White Blood Count 6.90 K/uL Red Blood Count 2.70 M/uL Mean Corpuscular Volume 99.6 fL Mean Corpuscular Hemoglobin 31.1 pg Mean Corpuscular Hemoglobin Concent 31.2 g/dl Platelet Count 65 K/uL Mean Platelet Volume 12.5 fL Neutrophils (%) (Auto) 79.6 % Lymphocytes (%) (Auto) 7.7 % Monocytes (%) (Auto) 11.0 % Eosinophils (%) (Auto) 1.0 % Basophils (%) (Auto) 0.4 % Neutrophils # (Auto) 5.49 K/uL Lymphocytes # (Auto) 0.53 K/uL Monocytes # (Auto) 0.76 K/uL Eosinophils # (Auto) 0.07 K/uL Basophils # (Auto) 0.03 K/uL RDW Standard Deviation 67.9 fL RDW Coefficient of Variation 18.8 % Immature Granulocyte % (Auto) 0.3 % Immature Granulocyte # (Auto) 0.02 K/uL Tear Drop Cells 1+ Sodium Level 144 mmol/L Potassium Level 4.4 mmol/L Chloride Level 111 mmol/L Carbon Dioxide Level 24 mmol/L Anion Gap 9.0 mmol/L Blood Urea Nitrogen 22 mg/dl Creatinine 1.70 mg/dl Est Creatinine Clear Calc Drug Dose 34.3 ml/min Estimated GFR () 43.8 Estimated GFR (Non- 37.8 BUN/Creatinine Ratio 13.1 Random Glucose 168 mg/dl Calcium Level 9.3 mg/dl Total Bilirubin 1.0 mg/dl Direct Bilirubin 0.3 mg/dl Aspartate Amino Transf (AST/SGOT) 55 U/L Alanine Aminotransferase (ALT/SGPT) 37 U/L Alkaline Phosphatase 141 U/L Total Protein 6.4 gm/dl Albumin 4.2 gm/dl Test 03/27/17 07:05 03/27/17 11:24 Bedside Glucose 169 mg/dl 200 mg/dl Assessment and Plan 76 yo with hx of KLEIN cirrhosis complicated by ascites, HE, presenting with weakness and ARF -Cr has worsened, urine studies, u/a, monitor fluid status, hold diuretics, obtain Echo -Hb is stable -Ensure has 3-4 BM's today -Continue Rifaximin -Consider re-instituting octreotide and midodrine, IV albumin x1 today
--- NOTE | 2017-03-27 19:00 | Progress Note ---
Medicine Progress Note Date & Time of Visit: Mar 27, 2017 at 19:00. Subjective Patient has been slightly more confused and drowsy today; awakens to verbal and does take meds/PO. Denies any complaints of pain or SOB. No overnight events noted. BP has been stable. No other complaints noted. Had one BM only. Objective Last 8 Hrs Date Time Temp Pulse Resp B/P (MAP) Pulse Ox O2 Delivery O2 Flow Rate FiO2 03/27/17 16:24 90 Nasal Cannula 3.0 03/27/17 15:36 37.0 75 18 145/72 (96) 93 Nasal Cannula 3.0 03/27/17 13:00 73 93 03/27/17 12:13 90 Nasal Cannula 3.0 03/27/17 11:38 37.0 80 20 131/82 (98) 93 Nasal Cannula 3.0 03/27/17 11:18 84 20 90 Nasal Cannula 3.0 Physical Exam: GENERAL: Patient is in no acute distress. HEENT: No acute trauma, normocephalic, mucous membranes moist, no nasal congestion, no scleral icterus. NECK: No stridor, trachea is midline. LUNGS: Diminished bases bilaterally, no wheeze, no rhonchi, breath sounds equal. HEART: Without murmurs gallops or rubs, regular rate and rhythm. ABDOMEN: Soft, nontender, bowel sounds positive, distended EXTREMITIES: No cyanosis or edema NEUROLOGIC: Drowsy, no acute motor or sensory deficits, no focal weakness. SKIN: No rash, no jaundice, no diaphoresis. Laboratory Results: Last 24 Hours Test 03/26/17 20:06 03/27/17 03:30 03/27/17 07:05 03/27/17 11:24 Bedside Glucose 228 mg/dl 169 mg/dl 200 mg/dl White Blood Count 6.90 K/uL Red Blood Count 2.70 M/uL Hemoglobin 8.4 g/dL Hematocrit 26.9 % Mean Corpuscular Volume 99.6 fL Mean Corpuscular Hemoglobin 31.1 pg Mean Corpuscular Hemoglobin Concent 31.2 g/dl Platelet Count 65 K/uL Mean Platelet Volume 12.5 fL Neutrophils (%) (Auto) 79.6 % Lymphocytes (%) (Auto) 7.7 % Monocytes (%) (Auto) 11.0 % Eosinophils (%) (Auto) 1.0 % Basophils (%) (Auto) 0.4 % Neutrophils # (Auto) 5.49 K/uL Lymphocytes # (Auto) 0.53 K/uL Monocytes # (Auto) 0.76 K/uL Eosinophils # (Auto) 0.07 K/uL Basophils # (Auto) 0.03 K/uL RDW Standard Deviation 67.9 fL RDW Coefficient of Variation 18.8 % Immature Granulocyte % (Auto) 0.3 % Immature Granulocyte # (Auto) 0.02 K/uL Tear Drop Cells 1+ Sodium Level 144 mmol/L Potassium Level 4.4 mmol/L Chloride Level 111 mmol/L Carbon Dioxide Level 24 mmol/L Anion Gap 9.0 mmol/L Blood Urea Nitrogen 22 mg/dl Creatinine 1.70 mg/dl Est Creatinine Clear Calc Drug Dose 34.3 ml/min Estimated GFR () 43.8 Estimated GFR (Non- 37.8 BUN/Creatinine Ratio 13.1 Random Glucose 168 mg/dl Calcium Level 9.3 mg/dl Total Bilirubin 1.0 mg/dl Direct Bilirubin 0.3 mg/dl Aspartate Amino Transf (AST/SGOT) 55 U/L Alanine Aminotransferase (ALT/SGPT) 37 U/L Alkaline Phosphatase 141 U/L Total Protein 6.4 gm/dl Albumin 4.2 gm/dl Test 03/27/17 16:02 Bedside Glucose 193 mg/dl Date/Time Source Procedure Growth Status 03/26/17 22:21 Stool C.difficile Toxin B Gene (PCR) - Final No C. difficile toxin B gene detected Complete Assessment & Plan Hypotension: -being managed as possible hepatorenal syndrome -other possible etiologies includes liver disease, hypovolemia/intravascular depletion from diuretics and low albumin, or less likely infectious source -CXR/UA/CT abd negative. Normal lactate and procalcitonin -was given aggressive IV fluid and was on vasopressors until this AM -had an arterial line central line that were placed in ICU -patient given 2 days of albumin IV -started on midodrine -no active bleeding seen but was guaiac positive -was started on empiric IV antibiotics, now off as no convincing source of infection -cultures: urine negative, MRSA swab negative, blood cultures pending -was in ICU, transferred to telemetry -repeat CXR only shows stable cardiomegaly, no evidence of failure or new changes compared to prior Hepatic Encephalopathy: -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 -hyperammonemia:153-->109 -continued on lactulose TID, Rifaximin BID; but has had less bowel movements -will resume Lasix when hypotension resolved -no ascites on CT abd, no abd pain on exam although clinically abdomen is protuberant -GI consulted as well GLENYS on CKD Stage III: -baseline Cr is 1.2 -was given some IV fluids, and also treated with albumin infusion x2 days -avoid nephrotoxic agents -continue to hold lasix and losartan for now -Cr trending back up to 1.7 today DM Type II: -insulin dependent -Last HbA1c: 7.5 % -continue Lantus + correction scale insulin -monitor BSG and adjust dose if necessary -hold PO meds -BSG AC HS AORTIC STENOSIS: -moderate to severe on last TTE -caution with fluids HYPERLIPIDEMIA: -continue statin CAD: -s/p stent placement -stable; no related issues presently -continue BB, Statin -Imdur, ARB held secondary to hypotension Acute anemia on Chronic Iron deficiency Anemia: -baseline Hb in 11's -continue Iron supplementation -patient was also started on octreotide -Guaiac positive in ED -monitor H&H closely, Hb has been 8.3-8.4 -GI consulted BPH: -was on Flomax, but held this admission due to hypotension GERD: -continue PPI DVT Prophylaxis: -SCDs Current Inpatient Medications: Current Inpatient Medications Medications (Trade) Dose Ordered Sig/Suman Route Start Time Stop Time Status Last Admin Dose Admin Ioversol (Optiray 320) 100 ml UD PRN IV 03/25/17 17:15 03/29/17 17:14 Ferrous Gluconate (Ferrous Gluconate Tab) 324 mg BID PO 03/25/17 21:00 04/24/17 20:59 03/27/17 07:45 324 MG Insulin Glargine (Lantus Solostar Pen) 25 units BID SC 03/25/17 21:00 04/24/17 20:59 03/27/17 08:01 25 UNITS Lactulose (Chronulac Syrup) 30 gm TID PO 03/25/17 21:00 04/24/17 20:59 03/27/17 13:08 30 GM Magnesium Oxide (Mag-Ox Tab) 400 mg BID PO 03/25/17 21:00 04/24/17 20:59 03/27/17 07:46 400 MG Pantoprazole Sodium (Protonix Tab) 40 mg BID PO 03/25/17 21:00 04/24/17 20:59 03/27/17 07:46 40 MG Rifaximin (Xifaxan Tab) 550 mg BID PO 03/25/17 21:00 04/24/17 20:59 03/27/17 07:46 550 MG Hydroxyzine HCl (Vistaril Tab) 25 mg HS PRN PO 03/25/17 19:30 04/24/17 19:29 Potassium Chloride (Klor-Con Tab) 20 meq DAILY PO 03/26/17 09:00 04/25/17 08:59 03/27/17 07:45 20 MEQ Rosuvastatin Calcium (Crestor Tab) 40 mg DAILY PO 03/26/17 09:00 04/25/17 08:59 03/27/17 07:45 40 MG Albuterol/ Ipratropium (Duoneb) 3 ml QIDR PRN INH 03/25/17 19:30 04/24/17 19:29 03/26/17 17:34 3 ML Insulin Aspart (novoLOG ASPART) SLIDING SCALE If C... ACHS SC 03/25/17 21:00 04/24/17 20:59 03/27/17 16:50 1 UNITS Glucose (Glucose 40% Gel) 15-30 GRAMS 15 GRAMS... UD PRN PO 03/25/17 19:30 04/24/17 19:29 Glucose (Glucose Chew Tab) 4-8 Tablets 4 Tabl... UD PRN PO 03/25/17 19:30 04/24/17 19:29 Dextrose (Dextrose 50% 50ML Syringe) 25-50ML OF 50% DW IV FOR... UD PRN IV 03/25/17 19:30 04/24/17 19:29 Glucagon (Glucagon Inj) 1 mg UD PRN SQ 03/25/17 19:30 04/24/17 19:29 Heparin Sodium (Porcine) (Heparin 10 Unit/ ml 5 ml Flush) 5 ml PRN PRN FLUSH 03/26/17 01:30 04/25/17 01:29 Albuterol/ Ipratropium (Duoneb) 3 ml QIDR INH 03/26/17 20:00 04/25/17 19:59 03/27/17 11:17 3 ML Midodrine (Proamatine Tab) 5 mg TID@,,17 PO 03/27/17 17:00 04/26/17 16:59 03/27/17 16:44 5 MG Midodrine (Proamatine Tab) 2.5 mg TID@,,17 PO 03/27/17 17:00 04/26/17 16:59 03/27/17 16:44 2.5 MG Octreotide Acetate (Sandostatin Inj) 100 mcg Q8H SQ 03/27/17 14:00 04/26/17 12:59 03/27/17 13:14 100 MCG
--- NOTE | 2017-03-27 21:38 | Progress Note ---
Post ICU Progress Note Date & Time Mar 27, 2017 at 21:32 Vital Signs Vital Signs Past 12 Hours Date Time Temp Pulse Resp B/P (MAP) Pulse Ox O2 Delivery O2 Flow Rate FiO2 03/27/17 19:45 37.2 78 18 138/64 (88) 94 Nasal Cannula 3.0 03/27/17 19:00 80 20 90 Nasal Cannula 3.0 03/27/17 16:24 90 Nasal Cannula 3.0 03/27/17 15:36 37.0 75 18 145/72 (96) 93 Nasal Cannula 3.0 03/27/17 13:00 73 93 03/27/17 12:13 90 Nasal Cannula 3.0 03/27/17 11:38 37.0 80 20 131/82 (98) 93 Nasal Cannula 3.0 03/27/17 11:18 84 20 90 Nasal Cannula 3.0 Notes Mental Status: see Notes (See below) Nausea / Vomiting: adequately controlled Pain: adequately controlled Airway Patency, RR, SpO2: stable & adequate BP & HR: stable & adequate Was in to see pt for follow up ICU evaluation; and found him to be mentally altered from prior visit. He was lethargic and was barely following directions. Mainly saying yes to everything. I alerted his nurse, Willa Roche , who in turn alert primary service. I am awaiting return call to discuss pt. I will defer pt plan to them. I have spoke with my supervising Dr. Rachel and he is agreement. Chart was reviewed. Pt has had no sedatives or narcotics. Blood sugar was checked in my presence as was in the high 180s. VS Stable throughout. Physical Findings: Squeezing pts right finger hurts; stating "ouch", but does not withdraw. He does not look to the right. Pressure on left hand is unrecognized. Motot of lower limbs are intact and move on pedal stimulation. Pt has chronic pupil size differences. This is unchanged from prior visit. Both pupils constrict but are slow. Corneal reflex intact. Pt oriented to self only, this is new since last examination. Resp and Cardiac Exam unchanged Assessment: Altered Mental Status Plan: I have ordered CMP, Ammonia, EKG, and UA 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. Discussed pt history with Dr. Sabiha Xiao and he will order head CT CCT: 0 minutes; Level II inpatient billing; Not including any billable procedures. Thank you for including us in the care of this patient. Please review Dr. River Rachel's addendum for further recommendations. I discussed the treatment plan with Bobbi Martino. Care lead by primary team. Consults & Procedures Consultants: Gastroenterology Procedures: Left internal jugular CVL 03/25/2017 Radial arterial line 03/25/2017
[2017-03-27 21:53] LABS: MANUAL MICROSCOPIC REQUIRED? YES; URINE APPEARANCE SL CLOUDY (CLEAR); URINE BILIRUBIN NEG (NEG); URINE COLOR RED; URINE NITRITE NEG (NEG); URINE PH 7.5 (4.5-7.5); UROBILINOGEN NEG (NEG)
[2017-03-27 21:56] LABS: REVIEW REQ? NO
[2017-03-27 21:57] LABS: SULFASALICYLIC ACID POS (NEG)
[2017-03-27 22:01] LABS: URINE BACTERIA NEG (NEG)
[2017-03-27 22:02] LABS: URINE RBC >30 /hpf (0-4)
[2017-03-27 22:03] LABS: ZZURINE CULT IF INDIC CATH YES
[2017-03-27 22:07] LABS: CREATININE 1.6 mg/dl (0.60-1.40)
[2017-03-27 22:08] LABS: ALB/GLOB RATIO 1.7 (0.9-2); BUN/CREATININE RATIO 13.9 (10-20); CALCIUM 9.4 mg/dl (8.5-10.1); POTASSIUM 4.2 mmol/L (3.5-5.1)
--- NOTE | 2017-03-27 22:47 | DIAGNOSTIC IMAGING REPORT ---
CT SCAN OF THE BRAIN WITHOUT IV CONTRAST CLINICAL HISTORY: Change in mental status. COMPARISON STUDY: CT of the brain dated 09/10/2016. TECHNIQUE: Unenhanced axial CT scan of the brain is performed from the vertex to the skull base. CT DOSE: 537.48 mGy.cm FINDINGS: Brain parenchyma: There are age-related involutional changes noting mild subcortical and periventricular microangiopathic change. There is no hemorrhage, mass effect, or evidence of acute territorial ischemia by CT criteria. Bhatt-white matter is preserved. No extra-axial fluid collection is seen. Ventricles, sulci, cisterns: Prominent secondary to involutional change. Intracranial vasculature: There is atherosclerotic calcification of the cavernous carotid and vertebral arteries. Calvarium: Unremarkable. Sinuses and mastoids: Trace mucosal thickening is seen in the sphenoid sinuses. The remaining visualized paranasal sinuses are clear. The mastoid air cells are well pneumatized. Orbits: The bony orbits are grossly intact. IMPRESSION: There is no hemorrhage, mass effect, or evidence of acute territorial ischemia by CT criteria. Electronically signed by: Jamie Lunsford M.D. 03/27/2017 10:45 PM Dictated Date/Time: 03/27/2017 10:44 PM
[2017-03-27] MEDS ORDERED: MULTI-VITAMIN INFUSION INJ 10 ML, THIAMINE HCL INJ 100 MG, FoLIC ACID INJ 1 MG, MAG SUL... IV ONE ×5 (23:45)
[2017-03-28] VITALS (13 sets, daily range): BP systolic 109–157; BP diastolic 64–74; PULSE 61–73; TEMP 36.5–37.1; O2SAT 90–98
[2017-03-28] MEDS: CEFTRIAXONE SOD INJ 1 GM in DEXTROSE 5% ADD-VANTAGE 50ML 50 ML IV SCH (00:05)
[2017-03-28] MEDS: OCTREOTIDE ACETATE 100 MCG/ML VIAL SQ SCH ×4 (00:05→22:08)
[2017-03-28 04:30] LABS: MEAN CELL VOLUME 100.4 fL (80-100); MEAN CORPUSCULAR HEMOGLOBIN 31.2 pg (25-34); MEAN CORPUSCULAR HGB CONC 31.1 g/dl (32-36); MEAN PLATELET VOLUME 12.1 fL (7.4-10.4); PLATELET COUNT 73 K/uL (130-400); RED BLOOD COUNT 2.79 M/uL (4.7-6.1); WHITE BLOOD COUNT 5.73 K/uL (4.8-10.8)
[2017-03-28 04:47] LABS: ANISOCYTOSIS PRESENT; BASO % 0.5 %; BASO ABS # 0.03 K/uL (0-0.2); COMPLETE YES; EOS % 2.1 %; GIANT PLATELETS 2+; IG% 0.3 %; LYMPH % 10.5 %; MONO % 13.3 %; NEUT % 73.3 %; OVALOCYTES 1+; POLYCHROMASIA 1+; TEAR DROP CELLS OCCASIONAL
[2017-03-28 05:11] LABS: BUN/CREATININE RATIO 15.2 (10-20); CALCIUM 9.3 mg/dl (8.5-10.1); CREATININE 1.5 mg/dl (0.60-1.40); POTASSIUM 4.2 mmol/L (3.5-5.1)
[2017-03-28] MEDS: INSULIN ASPART 100 UNITS/ML 3 ML PEN SC SCH ×2 (07:00→15:35)
[2017-03-28] MEDS: ALBUT/IPRATROP 3MG/0.5MG NEB 3 ML VIAL INH SCH ×4 (08:00→19:41)
[2017-03-28] MEDS: MIDODRINE 2.5 MG TAB PO SCH ×6 (08:00→18:04)
[2017-03-28] MEDS: ROSUVASTATIN CALCIUM 20 MG TAB PO SCH (09:00)
[2017-03-28] MEDS: LACTULOSE SYRUP 30 GM/45 ML UDP PO SCH ×3 (09:00→20:56)
[2017-03-28] MEDS: RIFAXIMIN TAB 550 MG TAB PO SCH ×2 (09:00→20:57)
[2017-03-28] MEDS: POTASSIUM CHLORIDE 20 MEQ TABCR PO SCH (09:00)
[2017-03-28] MEDS: FERROUS GLUCONATE 324 MG TAB PO SCH ×2 (09:00→20:57)
[2017-03-28] MEDS: MAGNESIUM OXIDE 400 MG TAB PO SCH ×2 (09:00→20:58)
[2017-03-28] MEDS ORDERED: LACTULOSE 200GM/700ML WTR ENEMA PR SCH (09:30)
[2017-03-28] MEDS: UNIT DOSE COMPOUND PO SCH ×3 (10:00→20:55)
[2017-03-28] MEDS: SODIUM CHLORIDE 0.9% 1000ML 1,000 ML IV SCH ×2 (10:00→22:09)
[2017-03-28] MEDS: LACTULOSE SYRUP 200 GM, WATER, STERILE IRRIG 700 ML, BARCODE IDENTIFIER 1 EA PR SCH ×6 (10:00→20:55)
--- NOTE | 2017-03-28 11:01 | Clinical Documentation Query ---
CLINICAL DOCUMENTATION QUERY 76 year old male who presents with hypotension requiring vasopressor support. In your clinical opinion is this patient being managed for: (X ) Hypovolemic shock POA in setting of presumed hepatorenal syndrome treated with IVF's and Vasopressin ( ) Other explanation of clinical findings (Please Explain) ( ) Unable to determine (Please Define) ( ) Need to Discuss ( ) Not Agree The medical record reflects the following clinical findings, treatment, and risk factors. Clinical Indicators: Hypotension 66/33, GLENYS, Treatment: IVF boluses, IV Vasopressin gtt, ICU hemodynamic monitoring, Arterial pressure monitoring, I/O's, Farley. Risk Factors: KLEIN, GLENYS, CKD, Aortic stenosis, Please clarify and document your clinical opinion in the progress notes and discharge summary. Terms such as "probable", "suspected", "likely", "questionable", "possible", or "still to be ruled out" are acceptable. IF IN AGREEMENT, YOU MUST DOCUMENT ABOVE DIAGNOSTIC STATEMENT IN DAILY PROGRESS NOTES AND DISCHARGE SUMMARY. This document is not part of the patient's record. Thank You, Feliberto Choudhury, RN [phone]
--- NOTE | 2017-03-28 11:18 | Gastroenterology Progress Note ---
Progress Note Date of Service: Mar 28, 2017 Subjective Pt evaluation today including: conversation w/ patient, physical exam, chart review, lab review, review of studies, review of inpatient medication list Pt stuporous, only able to open eyes and says "yes" when name called and when asked questions, not following commands. Unable to obtain ROS NH3 noted to be 136 this AM. WBC normal, infectious workup negative so far, CT head normal. Na 150, Cr down to 1.5. LFTs stable. Review of Systems Constitutional: + see HPI Medications Current Inpatient Medications Medications (Trade) Dose Ordered Sig/Suman Route Start Time Stop Time Status Last Admin Dose Admin Ioversol (Optiray 320) 100 ml UD PRN IV 03/25/17 17:15 03/29/17 17:14 Ferrous Gluconate (Ferrous Gluconate Tab) 324 mg BID PO 03/25/17 21:00 04/24/17 20:59 03/27/17 07:45 324 MG Insulin Glargine (Lantus Solostar Pen) 25 units BID SC 03/25/17 21:00 04/24/17 20:59 03/27/17 21:04 25 UNITS Lactulose (Chronulac Syrup) 30 gm TID PO 03/25/17 21:00 04/24/17 20:59 03/27/17 13:08 30 GM Magnesium Oxide (Mag-Ox Tab) 400 mg BID PO 03/25/17 21:00 04/24/17 20:59 03/27/17 07:46 400 MG Pantoprazole Sodium (Protonix Tab) 40 mg BID PO 03/25/17 21:00 04/24/17 20:59 03/27/17 07:46 40 MG Rifaximin (Xifaxan Tab) 550 mg BID PO 03/25/17 21:00 04/24/17 20:59 03/27/17 21:01 550 MG Hydroxyzine HCl (Vistaril Tab) 25 mg HS PRN PO 03/25/17 19:30 04/24/17 19:29 Potassium Chloride (Klor-Con Tab) 20 meq DAILY PO 03/26/17 09:00 04/25/17 08:59 03/27/17 07:45 20 MEQ Rosuvastatin Calcium (Crestor Tab) 40 mg DAILY PO 03/26/17 09:00 04/25/17 08:59 03/27/17 07:45 40 MG Albuterol/ Ipratropium (Duoneb) 3 ml QIDR PRN INH 03/25/17 19:30 04/24/17 19:29 03/26/17 17:34 3 ML Insulin Aspart (novoLOG ASPART) SLIDING SCALE If C... ACHS SC 03/25/17 21:00 04/24/17 20:59 03/27/17 21:03 1 UNITS Glucose (Glucose 40% Gel) 15-30 GRAMS 15 GRAMS... UD PRN PO 03/25/17 19:30 04/24/17 19:29 Glucose (Glucose Chew Tab) 4-8 Tablets 4 Tabl... UD PRN PO 03/25/17 19:30 04/24/17 19:29 Dextrose (Dextrose 50% 50ML Syringe) 25-50ML OF 50% DW IV FOR... UD PRN IV 03/25/17 19:30 04/24/17 19:29 Glucagon (Glucagon Inj) 1 mg UD PRN SQ 03/25/17 19:30 04/24/17 19:29 Heparin Sodium (Porcine) (Heparin 10 Unit/ ml 5 ml Flush) 5 ml PRN PRN FLUSH 03/26/17 01:30 04/25/17 01:29 Albuterol/ Ipratropium (Duoneb) 3 ml QIDR INH 03/26/17 20:00 04/25/17 19:59 03/28/17 08:00 3 ML Midodrine (Proamatine Tab) 5 mg TID@,, PO 03/27/17 17:00 04/26/17 16:59 03/27/17 16:44 5 MG Midodrine (Proamatine Tab) 2.5 mg TID@,, PO 03/27/17 17:00 04/26/17 16:59 03/27/17 16:44 2.5 MG Octreotide Acetate (Sandostatin Inj) 100 mcg Q8H SQ 03/27/17 14:00 04/26/17 12:59 03/28/17 05:56 100 MCG Ceftriaxone Sodium 1 gm/ Dextrose 50 ml @ 100 mls/hr Q24H IV 03/28/17 00:00 03/30/17 00:00 03/28/17 00:05 100 MLS/HR Sodium Chloride 1,000 ml @ 80 mls/hr [id number] IV 03/28/17 10:00 04/27/17 09:59 Lactulose/Sterile Water/Barcode Q8 NM 03/28/17 10:00 04/27/17 09:59 Miscellaneous (Unit Dose Compound) 1 ea Q8 PO 03/28/17 10:00 04/27/17 09:59 Objective Vital Signs Date Time Temp Pulse Resp B/P (MAP) Pulse Ox O2 Delivery O2 Flow Rate FiO2 03/28/17 08:58 73 20 98 Nasal Cannula 3.0 03/28/17 08:01 90 Nasal Cannula 3.0 03/28/17 07:24 37.1 70 18 157/74 (101) 96 2.0 03/28/17 04:00 Nasal Cannula 3.0 03/28/17 03:50 37.0 72 18 154/69 (97) 96 Nasal Cannula 2.5 03/27/17 23:59 Nasal Cannula 3.0 03/27/17 23:36 37.0 72 18 145/60 (88) 96 Nasal Cannula 2.5 03/27/17 20:00 Nasal Cannula 3.0 03/27/17 19:45 37.2 78 18 138/64 (88) 94 Nasal Cannula 3.0 03/27/17 19:00 80 20 90 Nasal Cannula 3.0 03/27/17 16:24 90 Nasal Cannula 3.0 03/27/17 15:36 37.0 75 18 145/72 (96) 93 Nasal Cannula 3.0 03/27/17 13:00 73 93 03/27/17 12:13 90 Nasal Cannula 3.0 03/27/17 11:38 37.0 80 20 131/82 (98) 93 Nasal Cannula 3.0 03/27/17 11:18 84 20 90 Nasal Cannula 3.0 Physical Exam General Appearance: + mild distress (confused ), + obese Neck: supple, no JVD, trachea midline Respiratory/Chest: no respiratory distress, no accessory muscle use, + decreased breath sounds Cardiovascular: regular rate, rhythm, no gallop, no murmur Abdomen: non tender, + abnormal bowel sounds (hypoactive), + distended Extremities: normal inspection, no pedal edema, no calf tenderness Neurologic/Psych: + disoriented (stuporous, only able to open eyes, and says "yes" when name called, questioned; not following commands) Skin: normal color, no jaundice, no rash Laboratory Results Last 24 Hours Test 03/27/17 11:24 03/27/17 16:02 03/27/17 20:00 03/27/17 21:00 Bedside Glucose 200 mg/dl 193 mg/dl 188 mg/dl Urine Color RED Urine Appearance SL CLOUDY Urine pH 7.5 Urine Specific [place] 1.010 Urine Protein 1+ Urine Glucose (UA) 3+ Urine Ketones NEG Urine Occult Blood 2+ Urine Nitrite NEG Urine Bilirubin NEG Urine Urobilinogen NEG Urine Leukocyte Esterase NEG Urine RBC >30 /hpf Urine WBC 10-30 /hpf Urine Epithelial Cells 0-5 /lpf Urine Bacteria NEG Test 03/27/17 21:24 03/27/17 21:27 03/28/17 03:53 03/28/17 06:54 Bedside Glucose 183 mg/dl 140 mg/dl Sodium Level 147 mmol/L 150 mmol/L Potassium Level 4.2 mmol/L 4.2 mmol/L Chloride Level 113 mmol/L 117 mmol/L Carbon Dioxide Level 24 mmol/L 25 mmol/L Anion Gap 10.0 mmol/L 8.0 mmol/L Blood Urea Nitrogen 22 mg/dl 23 mg/dl Creatinine 1.60 mg/dl 1.50 mg/dl Est Creatinine Clear Calc Drug Dose 35.4 ml/min 37.7 ml/min Estimated GFR () 47.1 51.0 Estimated GFR (Non- 40.7 44.0 BUN/Creatinine Ratio 13.9 15.2 Random Glucose 175 mg/dl 147 mg/dl Calcium Level 9.4 mg/dl 9.3 mg/dl Total Bilirubin 1.2 mg/dl 1.1 mg/dl Aspartate Amino Transf (AST/SGOT) 54 U/L 60 U/L Alanine Aminotransferase (ALT/SGPT) 35 U/L 35 U/L Alkaline Phosphatase 120 U/L 115 U/L Ammonia 196.0 umol/L Total Protein 6.4 gm/dl 6.3 gm/dl Albumin 4.0 gm/dl 3.9 gm/dl Globulin 2.4 gm/dl Albumin/Globulin Ratio 1.7 White Blood Count 5.73 K/uL Red Blood Count 2.79 M/uL Hemoglobin 8.7 g/dL Hematocrit 28.0 % Mean Corpuscular Volume 100.4 fL Mean Corpuscular Hemoglobin 31.2 pg Mean Corpuscular Hemoglobin Concent 31.1 g/dl Platelet Count 73 K/uL Mean Platelet Volume 12.1 fL Neutrophils (%) (Auto) 73.3 % Lymphocytes (%) (Auto) 10.5 % Monocytes (%) (Auto) 13.3 % Eosinophils (%) (Auto) 2.1 % Basophils (%) (Auto) 0.5 % Neutrophils # (Auto) 4.20 K/uL Lymphocytes # (Auto) 0.60 K/uL Monocytes # (Auto) 0.76 K/uL Eosinophils # (Auto) 0.12 K/uL Basophils # (Auto) 0.03 K/uL RDW Standard Deviation 68.8 fL RDW Coefficient of Variation 18.7 % Immature Granulocyte % (Auto) 0.3 % Immature Granulocyte # (Auto) 0.02 K/uL Giant Platelets 2+ Polychromasia 1+ Anisocytosis PRESENT Tear Drop Cells OCCASIONAL Ovalocytes 1+ Direct Bilirubin 0.3 mg/dl Test 03/28/17 09:49 Ammonia 139.0 umol/L Assessment and Plan 76 y/o with 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 MELD 12. Currently confused, decreased mentation, NH3 136. No BM x 2 days. Na 150, Cr down to 1.5 - Add Lactulose enema q8hr to current regimen of Lactulose PO and Rifaximin PO - Continue Octreotide/Midodrine ; hold diuretics for now. - U/S abd to r/o ascites, noted CTA on 03/25 w/o ascites; already on Ceftriaxone for SBO coverage. - Electrolyte imbalance correction per primary team. late entry: patient was seen and examined the patient with Neda Godinez on . her note reflects our findings and plan.
--- NOTE | 2017-03-28 15:24 | DIAGNOSTIC IMAGING REPORT ---
ULTRASOUND ABDOMEN ASCITES CHECK CLINICAL HISTORY: Cirrhosis. Abdominal distention. COMPARISON STUDY: Abdominal CT dated 03/25/2017. FINDINGS: Real-time grayscale sonography of all 4 quadrants of the abdomen is performed to assess for abdominal ascites. No abdominal ascites is identified. Cirrhotic liver morphology is noted. The spleen is enlarged measuring 16.2 cm in length. IMPRESSION: No abdominal ascites is identified at the time of examination. Electronically signed by: Jamie Lunsford M.D. 03/28/2017 3:23 PM Dictated Date/Time: 03/28/2017 3:22 PM
[2017-03-28] MEDS: INSULIN GLARGINE SOLOSTAR 100 UNITS/ML 3 ML PEN SC SCH (15:35)
--- NOTE | 2017-03-28 19:07 | Progress Note ---
Medicine Progress Note Date & Time of Visit: Mar 28, 2017 at 19:07. Subjective Patient awakens to aversive stimuli with eye opening but otherwise is somnolent. Has not been able to take PO meds. CT head was done overnight due to acute change in mentation and was negative. No complaints from patient overnight , this AM is not verbal. Objective Last 8 Hrs Date Time Temp Pulse Resp B/P (MAP) Pulse Ox O2 Delivery O2 Flow Rate FiO2 03/28/17 19:00 36.9 61 21 152/68 (96) 98 Nasal Cannula 3.0 03/28/17 16:00 96 Nasal Cannula 3.0 03/28/17 15:59 67 18 96 Nasal Cannula 3.0 03/28/17 15:21 36.5 67 24 150/71 (97) 98 Nasal Cannula 3.0 03/28/17 12:38 90 Nasal Cannula 3.0 03/28/17 11:14 36.9 68 18 109/64 (79) 97 Room Air 03/28/17 11:12 68 20 96 Nasal Cannula 3.0 Physical Exam: GENERAL: Patient is in no acute distress. HEENT: No acute trauma, normocephalic, mucous membranes moist, no nasal congestion, no scleral icterus. NECK: No stridor, trachea is midline. LUNGS: Diminished bases bilaterally, no wheeze, no rhonchi, breath sounds equal. HEART: Without murmurs gallops or rubs, regular rate and rhythm. ABDOMEN: Soft, nontender, bowel sounds positive, distended EXTREMITIES: No cyanosis or edema NEUROLOGIC: Drowsy, no acute motor or sensory deficits, no focal weakness. SKIN: No rash, no jaundice, no diaphoresis. Laboratory Results: Last 24 Hours Test 03/27/17 20:00 03/27/17 21:00 03/27/17 21:24 03/27/17 21:27 Bedside Glucose 188 mg/dl 183 mg/dl Urine Color RED Urine Appearance SL CLOUDY Urine pH 7.5 Urine Specific [place] 1.010 Urine Protein 1+ Urine Glucose (UA) 3+ Urine Ketones NEG Urine Occult Blood 2+ Urine Nitrite NEG Urine Bilirubin NEG Urine Urobilinogen NEG Urine Leukocyte Esterase NEG Urine RBC >30 /hpf Urine WBC 10-30 /hpf Urine Epithelial Cells 0-5 /lpf Urine Bacteria NEG Sodium Level 147 mmol/L Potassium Level 4.2 mmol/L Chloride Level 113 mmol/L Carbon Dioxide Level 24 mmol/L Anion Gap 10.0 mmol/L Blood Urea Nitrogen 22 mg/dl Creatinine 1.60 mg/dl Est Creatinine Clear Calc Drug Dose 35.4 ml/min Estimated GFR () 47.1 Estimated GFR (Non- 40.7 BUN/Creatinine Ratio 13.9 Random Glucose 175 mg/dl Calcium Level 9.4 mg/dl Total Bilirubin 1.2 mg/dl Aspartate Amino Transf (AST/SGOT) 54 U/L Alanine Aminotransferase (ALT/SGPT) 35 U/L Alkaline Phosphatase 120 U/L Ammonia 196.0 umol/L Total Protein 6.4 gm/dl Albumin 4.0 gm/dl Globulin 2.4 gm/dl Albumin/Globulin Ratio 1.7 Test 03/28/17 03:53 03/28/17 06:54 03/28/17 09:49 03/28/17 11:19 White Blood Count 5.73 K/uL Red Blood Count 2.79 M/uL Hemoglobin 8.7 g/dL Hematocrit 28.0 % Mean Corpuscular Volume 100.4 fL Mean Corpuscular Hemoglobin 31.2 pg Mean Corpuscular Hemoglobin Concent 31.1 g/dl Platelet Count 73 K/uL Mean Platelet Volume 12.1 fL Neutrophils (%) (Auto) 73.3 % Lymphocytes (%) (Auto) 10.5 % Monocytes (%) (Auto) 13.3 % Eosinophils (%) (Auto) 2.1 % Basophils (%) (Auto) 0.5 % Neutrophils # (Auto) 4.20 K/uL Lymphocytes # (Auto) 0.60 K/uL Monocytes # (Auto) 0.76 K/uL Eosinophils # (Auto) 0.12 K/uL Basophils # (Auto) 0.03 K/uL RDW Standard Deviation 68.8 fL RDW Coefficient of Variation 18.7 % Immature Granulocyte % (Auto) 0.3 % Immature Granulocyte # (Auto) 0.02 K/uL Giant Platelets 2+ Polychromasia 1+ Anisocytosis PRESENT Tear Drop Cells OCCASIONAL Ovalocytes 1+ Sodium Level 150 mmol/L Potassium Level 4.2 mmol/L Chloride Level 117 mmol/L Carbon Dioxide Level 25 mmol/L Anion Gap 8.0 mmol/L Blood Urea Nitrogen 23 mg/dl Creatinine 1.50 mg/dl Est Creatinine Clear Calc Drug Dose 37.7 ml/min Estimated GFR () 51.0 Estimated GFR (Non- 44.0 BUN/Creatinine Ratio 15.2 Random Glucose 147 mg/dl Calcium Level 9.3 mg/dl Total Bilirubin 1.1 mg/dl Direct Bilirubin 0.3 mg/dl Aspartate Amino Transf (AST/SGOT) 60 U/L Alanine Aminotransferase (ALT/SGPT) 35 U/L Alkaline Phosphatase 115 U/L Total Protein 6.3 gm/dl Albumin 3.9 gm/dl Bedside Glucose 140 mg/dl 149 mg/dl Ammonia 139.0 umol/L Test 03/28/17 16:05 Bedside Glucose 204 mg/dl Date/Time Source Procedure Growth Status 03/27/17 21:00 Urine,Catheterized Urine Culture - Preliminary NO GROWTH - LESS THAN 1,000 COLONIES/... Resulted Assessment & Plan Hypotension: -being managed as possible hepatorenal syndrome -other possible etiologies includes liver disease, hypovolemia/intravascular depletion from diuretics and low albumin, or less likely infectious source -CXR/UA/CT abd negative. Normal lactate and procalcitonin -was given aggressive IV fluid and was on vasopressors until this AM -had an arterial line central line that were placed in ICU -patient given 2 days of albumin IV -started on midodrine -no active bleeding seen but was guaiac positive -was started on empiric IV antibiotics, now off as no convincing source of infection -cultures: urine negative, MRSA swab negative, blood cultures pending -was in ICU, transferred to telemetry -repeat CXR only shows stable cardiomegaly, no evidence of failure or new changes compared to prior Hepatic Encephalopathy: -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 -hyperammonemia:153-->109-->190-->130 -continued on lactulose TID, Rifaximin BID; but has had less bowel movements; started on lactulose enemas -resume Lasix when hypotension resolved -no ascites on CT abd, no abd pain on exam although clinically abdomen is protuberant -GI consulted as well -CT head done overnight negative GLENYS on CKD Stage III: -baseline Cr is 1.2 -was given some IV fluids, and also treated with albumin infusion x2 days -avoid nephrotoxic agents -continue to hold lasix and losartan for now -Cr 1.5 DM Type II: -insulin dependent -Last HbA1c: 7.5 % -continue Lantus + correction scale insulin -monitor BSG and adjust dose if necessary -hold PO meds -BSG AC HS AORTIC STENOSIS: -moderate to severe on last TTE -caution with fluids HYPERLIPIDEMIA: -continue statin CAD: -s/p stent placement -stable; no related issues presently -continue BB, Statin -Imdur, ARB held secondary to hypotension Acute anemia on Chronic Iron deficiency Anemia: -baseline Hb in 11's -continue Iron supplementation -patient was also started on octreotide -Guaiac positive in ED -monitor H&H closely, Hb has been 8.3-8.4 -GI consulted BPH: -was on Flomax, but held this admission due to hypotension GERD: -continue PPI DVT Prophylaxis: -SCDs Current Inpatient Medications: Current Inpatient Medications Medications (Trade) Dose Ordered Sig/Suman Route Start Time Stop Time Status Last Admin Dose Admin Ioversol (Optiray 320) 100 ml UD PRN IV 03/25/17 17:15 03/29/17 17:14 Ferrous Gluconate (Ferrous Gluconate Tab) 324 mg BID PO 03/25/17 21:00 04/24/17 20:59 03/28/17 09:00 324 MG Insulin Glargine (Lantus Solostar Pen) 25 units BID SC 03/25/17 21:00 04/24/17 20:59 Future Hold 03/27/17 21:04 25 UNITS Lactulose (Chronulac Syrup) 30 gm TID PO 03/25/17 21:00 04/24/17 20:59 03/28/17 12:25 30 GM Magnesium Oxide (Mag-Ox Tab) 400 mg BID PO 03/25/17 21:00 04/24/17 20:59 03/28/17 09:00 400 MG Rifaximin (Xifaxan Tab) 550 mg BID PO 03/25/17 21:00 04/24/17 20:59 03/28/17 09:00 550 MG Hydroxyzine HCl (Vistaril Tab) 25 mg HS PRN PO 03/25/17 19:30 04/24/17 19:29 Potassium Chloride (Klor-Con Tab) 20 meq DAILY PO 03/26/17 09:00 04/25/17 08:59 03/28/17 09:00 20 MEQ Rosuvastatin Calcium (Crestor Tab) 40 mg DAILY PO 03/26/17 09:00 04/25/17 08:59 03/28/17 09:00 40 MG Albuterol/ Ipratropium (Duoneb) 3 ml QIDR PRN INH 03/25/17 19:30 04/24/17 19:29 03/26/17 17:34 3 ML Insulin Aspart (novoLOG ASPART) SLIDING SCALE If C... ACHS SC 03/25/17 21:00 04/24/17 20:59 Future Hold 03/27/17 21:03 1 UNITS Glucose (Glucose 40% Gel) 15-30 GRAMS 15 GRAMS... UD PRN PO 03/25/17 19:30 04/24/17 19:29 Glucose (Glucose Chew Tab) 4-8 Tablets 4 Tabl... UD PRN PO 03/25/17 19:30 04/24/17 19:29 Dextrose (Dextrose 50% 50ML Syringe) 25-50ML OF 50% DW IV FOR... UD PRN IV 03/25/17 19:30 04/24/17 19:29 Glucagon (Glucagon Inj) 1 mg UD PRN SQ 03/25/17 19:30 04/24/17 19:29 Heparin Sodium (Porcine) (Heparin 10 Unit/ ml 5 ml Flush) 5 ml PRN PRN FLUSH 03/26/17 01:30 04/25/17 01:29 Albuterol/ Ipratropium (Duoneb) 3 ml QIDR INH 03/26/17 20:00 04/25/17 19:59 03/28/17 15:59 3 ML Midodrine (Proamatine Tab) 5 mg TID@08,12,17 PO 03/27/17 17:00 04/26/17 16:59 03/28/17 18:04 5 MG Midodrine (Proamatine Tab) 2.5 mg TID@08,12,17 PO 03/27/17 17:00 04/26/17 16:59 03/28/17 18:04 2.5 MG Octreotide Acetate (Sandostatin Inj) 100 mcg Q8H SQ 03/27/17 14:00 04/26/17 12:59 03/28/17 13:32 100 MCG Ceftriaxone Sodium 1 gm/ Dextrose 50 ml @ 100 mls/hr Q24H IV 03/28/17 00:00 03/30/17 00:00 03/28/17 00:05 100 MLS/HR Sodium Chloride 1,000 ml @ 80 mls/hr [id number] IV 03/28/17 10:00 04/27/17 09:59 03/28/17 10:00 80 MLS/HR Lactulose/Sterile Water/Barcode Q8 AR 03/28/17 10:00 04/27/17 09:59 03/28/17 17:33 10 GM Miscellaneous (Unit Dose Compound) 1 ea Q8 PO 03/28/17 10:00 04/27/17 09:59 03/28/17 16:00 1 EA Pantoprazole Sodium 40 mg/ Syringe 10 ml @ 5 mls/min DAILY@ IV 03/28/17 21:00 04/27/17 20:59
[2017-03-28] MEDS: PANTOprazole INJ 40 MG in SYRINGE 0 ML IV SCH (20:56)
[2017-03-29] VITALS (11 sets, daily range): BP systolic 135–155; BP diastolic 55–87; PULSE 58–64; TEMP 36.6–37.1; O2SAT 90–98
[2017-03-29] MEDS: CEFTRIAXONE SOD INJ 1 GM in DEXTROSE 5% ADD-VANTAGE 50ML 50 ML IV SCH ×2 (00:26→23:56)
[2017-03-29 05:00] LABS: HEMATOCRIT 28.1 % (42-52); MEAN CORPUSCULAR HEMOGLOBIN 29.9 pg (25-34); MEAN CORPUSCULAR HGB CONC 29.9 g/dl (32-36); RED BLOOD COUNT 2.81 M/uL (4.7-6.1); WHITE BLOOD COUNT 4.64 K/uL (4.8-10.8)
[2017-03-29 05:03] LABS: MEAN PLATELET VOLUME 11.1 fL (7.4-10.4); PLATELET COUNT 83 K/uL (130-400)
[2017-03-29 05:21] LABS: BUN/CREATININE RATIO 16.3 (10-20); CREATININE 1.3 mg/dl (0.60-1.40); POTASSIUM 3.9 mmol/L (3.5-5.1)
[2017-03-29 05:25] LABS: BASO % 0.6 %; BASO ABS # 0.03 K/uL (0-0.2); COMPLETE YES; EOS % 5.8 %; IG% 0.2 %; LYMPH % 14.4 %; LYMPH ABS # 0.67 K/uL (1.2-3.4); MONO % 9.9 %; NEUT % 69.1 %; OVALOCYTES 1+; TEAR DROP CELLS OCCASIONAL
[2017-03-29] MEDS: UNIT DOSE COMPOUND PO SCH ×2 (05:35→12:21)
[2017-03-29] MEDS: LACTULOSE SYRUP 200 GM, WATER, STERILE IRRIG 700 ML, BARCODE IDENTIFIER 1 EA PR SCH ×2 (05:35)
[2017-03-29] MEDS: OCTREOTIDE ACETATE 100 MCG/ML VIAL SQ SCH (05:54)
[2017-03-29] MEDS: ALBUT/IPRATROP 3MG/0.5MG NEB 3 ML VIAL INH SCH ×2 (07:32→11:16)
[2017-03-29] MEDS: PANTOprazole INJ 40 MG in SYRINGE 0 ML IV SCH ×2 (08:07→20:30)
[2017-03-29] MEDS: ROSUVASTATIN CALCIUM 20 MG TAB PO SCH (08:07)
[2017-03-29] MEDS: FERROUS GLUCONATE 324 MG TAB PO SCH ×2 (08:07→19:37)
[2017-03-29] MEDS: LACTULOSE SYRUP 30 GM/45 ML UDP PO SCH ×3 (08:07→19:37)
[2017-03-29] MEDS: POTASSIUM CHLORIDE 20 MEQ TABCR PO SCH (08:07)
[2017-03-29] MEDS: MIDODRINE 2.5 MG TAB PO SCH ×2 (08:07)
[2017-03-29] MEDS: MAGNESIUM OXIDE 400 MG TAB PO SCH ×2 (08:08→19:38)
[2017-03-29] MEDS: RIFAXIMIN TAB 550 MG TAB PO SCH ×2 (08:08→19:38)
--- NOTE | 2017-03-29 10:29 | Progress Note ---
Internal Med Progress Note Date of Service: Mar 29, 2017. Provider Documentation: SUBJECTIVE: awake and alert today no evidence of confusion denies of any pain or discomfort wants Farley to be out OBJECTIVE: Vital Signs-as noted below Exam: General-no sign of distress Eyes-sclera non icteric ENT-NAD Neck-no JVD Lungs-CTA Heart-regular s1/s2 Abdomen-soft, non tender Extremities-no edema Neuro-no focal deficit Lab data as noted below. ASSESSMENT & PLAN: Hypotension: presented with hypovolumic shock due to hepatorenal syndrome -has underlying liver disease, hypovolemia/intravascular depletion from diuretics and low albumin, -CXR/UA/CT abd negative. Normal lactate and procalcitonin -was given aggressive IV fluid and was on vasopressors in ICU -had an arterial line central line that were placed in ICU -s/p 2 days of albumin IV -given midodrine -was started on empiric IV antibiotics, now off as no convincing source of infection -cultures: urine negative, MRSA swab negative, blood cultures pending -repeat CXR only shows stable cardiomegaly, no evidence of failure or new changes compared to prior -BP now remains stable will d/c central line d/c Farley OOB as tolerated PT/OT Guaiac positive stool : No active GI bleed monitor Hepatic Encephalopathy: resolved , mental status approx baseline -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 -hyperammonemia:153-->109 -> 48 -continued on lactulose TID, Rifaximin BID; but has had less bowel movements - resume Lasix -no ascites on CT abd, no abd pain on exam although clinically abdomen is protuberant -GI consulted -appreciate input GLENYS on CKD Stage III: -baseline Cr is 1.2 cr at baseline now -was given some IV fluids,s/p albumin infusion x2 days -avoid nephrotoxic agents Hypernatremia : Na 150 changed IVF to 1/2 NSS x1 liter resumed Lasix low Na diet DM Type II: -insulin dependent -Last HbA1c: 7.5 % -continue Lantus + correction scale insulin -monitor BSG and adjust dose if necessary -hold PO meds -BSG AC HS AORTIC STENOSIS: -moderate to severe on last TTE -caution with fluids -1/2 NSS X1 liter only HYPERLIPIDEMIA: -continue statin CAD: -s/p stent placement -stable; no related issues presently -continue BB, Statin -Imdur, ARB held secondary to hypotension Acute anemia on Chronic Iron deficiency Anemia: -baseline Hb in 11's -continue Iron supplementation -patient was also started on octreotide -Guaiac positive in ED -monitor H&H closely, Hb has been 8.3-8.4 -GI consulted BPH: -was on Flomax, but held this admission due to hypotension GERD: -continue PPI DVT Prophylaxis: -SCDs for Guiac positive stool Vital Signs: Date Time Temp Pulse Resp B/P (MAP) Pulse Ox O2 Delivery O2 Flow Rate FiO2 03/29/17 08:01 90 Nasal Cannula 3.0 03/29/17 07:35 37.1 62 18 152/55 (87) 92 2.0 03/29/17 07:32 58 16 97 Nasal Cannula 3.0 03/29/17 04:14 37.0 64 18 149/69 (95) 98 Nasal Cannula 2.0 03/29/17 04:00 Nasal Cannula 3.0 03/29/17 00:04 36.7 60 18 155/69 (97) 97 Nasal Cannula 2.0 03/28/17 23:59 Nasal Cannula 3.0 03/28/17 20:00 95 Nasal Cannula 3.0 03/28/17 19:43 68 16 98 Nasal Cannula 3.0 03/28/17 19:00 36.9 61 21 152/68 (96) 98 Nasal Cannula 3.0 03/28/17 16:00 96 Nasal Cannula 3.0 03/28/17 15:59 67 18 96 Nasal Cannula 3.0 03/28/17 15:21 36.5 67 24 150/71 (97) 98 Nasal Cannula 3.0 03/28/17 12:38 90 Nasal Cannula 3.0 03/28/17 11:14 36.9 68 18 109/64 (79) 97 Room Air 03/28/17 11:12 68 20 96 Nasal Cannula 3.0 Lab Results: Results Past 24 Hours Test 03/28/17 11:19 03/28/17 16:05 03/28/17 20:19 03/29/17 04:41 Range/Units Bedside Glucose 149 204 197 70-99 mg/dl White Blood Count 4.64 4.8-10.8 K/uL Red Blood Count 2.81 4.7-6.1 M/uL Hemoglobin 8.4 14.0-18.0 g/dL Hematocrit 28.1 42-52 % Mean Corpuscular Volume 100.0 80-100 fL Mean Corpuscular Hemoglobin 29.9 25-34 pg Mean Corpuscular Hemoglobin Concent 29.9 32-36 g/dl Platelet Count 83 130-400 K/uL Mean Platelet Volume 11.1 7.4-10.4 fL Neutrophils (%) (Auto) 69.1 % Lymphocytes (%) (Auto) 14.4 % Monocytes (%) (Auto) 9.9 % Eosinophils (%) (Auto) 5.8 % Basophils (%) (Auto) 0.6 % Neutrophils # (Auto) 3.20 1.4-6.5 K/uL Lymphocytes # (Auto) 0.67 1.2-3.4 K/uL Monocytes # (Auto) 0.46 0.11-0.59 K/uL Eosinophils # (Auto) 0.27 0-0.5 K/uL Basophils # (Auto) 0.03 0-0.2 K/uL RDW Standard Deviation 67.2 36.4-46.3 fL RDW Coefficient of Variation 18.4 11.5-14.5 % Immature Granulocyte % (Auto) 0.2 % Immature Granulocyte # (Auto) 0.01 0.00-0.02 K/uL Tear Drop Cells OCCASIONAL Ovalocytes 1+ Sodium Level 150 136-145 mmol/L Potassium Level 3.9 3.5-5.1 mmol/L Chloride Level 119 98-107 mmol/L Carbon Dioxide Level 24 21-32 mmol/L Anion Gap 7.0 3-11 mmol/L Blood Urea Nitrogen 21 7-18 mg/dl Creatinine 1.30 0.60-1.40 mg/dl Est Creatinine Clear Calc Drug Dose 43.2 ml/min Estimated GFR () 60.6 Estimated GFR (Non- 52.3 BUN/Creatinine Ratio 16.3 10-20 Random Glucose 172 70-99 mg/dl Calcium Level 9.0 8.5-10.1 mg/dl Total Bilirubin 1.2 0.2-1 mg/dl Direct Bilirubin 0.4 0-0.2 mg/dl Aspartate Amino Transf (AST/SGOT) 45 15-37 U/L Alanine Aminotransferase (ALT/SGPT) 30 12-78 U/L Alkaline Phosphatase 100 45-117 U/L Total Protein 6.1 6.4-8.2 gm/dl Albumin 3.5 3.4-5.0 gm/dl Test 03/29/17 06:42 03/29/17 07:08 Range/Units Ammonia 48.0 11-32 umol/L Bedside Glucose 143 70-99 mg/dl
[2017-03-29] MEDS ORDERED: ALBUTEROL HFA 8 GM INHALER INH PRN (10:45)
[2017-03-29] MEDS ORDERED: NITROGLYCERIN 0.4 MG SL PER TAB CHARGE UT PRN (10:45)
[2017-03-29] MEDS ORDERED: SODIUM CHLORIDE 0.45% 1000ML 1,000 ML IV SCH (11:00)
[2017-03-29] MEDS: FUROSEMIDE 40 MG TAB PO SCH (11:12)
--- NOTE | 2017-03-29 12:31 | Gastroenterology Progress Note ---
Progress Note Date of Service: Mar 29, 2017 Subjective Pt evaluation today including: conversation w/ patient, physical exam, chart review, lab review, review of inpatient medication list Pt appears alert, oriented to self and place only. He denies any CP, SOB, abd pain, n/v. Tolerating regular consistency breakfast today Review of Systems Constitutional: No fever, No chills Respiratory: No cough, No shortness of breath Cardiac: No chest pain Abdomen: No pain, No nausea, No vomiting Skin: No rash, No itch, No jaundice Medications Current Inpatient Medications Medications (Trade) Dose Ordered Sig/Suman Route Start Time Stop Time Status Last Admin Dose Admin Ioversol (Optiray 320) 100 ml UD PRN IV 03/25/17 17:15 03/29/17 17:14 Ferrous Gluconate (Ferrous Gluconate Tab) 324 mg BID PO 03/25/17 21:00 04/24/17 20:59 03/29/17 08:07 324 MG Insulin Glargine (Lantus Solostar Pen) 25 units BID SC 03/25/17 21:00 04/24/17 20:59 Future Hold 03/27/17 21:04 25 UNITS Lactulose (Chronulac Syrup) 30 gm TID PO 03/25/17 21:00 04/24/17 20:59 03/29/17 12:22 30 GM Magnesium Oxide (Mag-Ox Tab) 400 mg BID PO 03/25/17 21:00 04/24/17 20:59 03/29/17 08:08 400 MG Rifaximin (Xifaxan Tab) 550 mg BID PO 03/25/17 21:00 04/24/17 20:59 03/29/17 08:08 550 MG Hydroxyzine HCl (Vistaril Tab) 25 mg HS PRN PO 03/25/17 19:30 04/24/17 19:29 Potassium Chloride (Klor-Con Tab) 20 meq DAILY PO 03/26/17 09:00 04/25/17 08:59 03/29/17 08:07 20 MEQ Rosuvastatin Calcium (Crestor Tab) 40 mg DAILY PO 03/26/17 09:00 04/25/17 08:59 03/29/17 08:07 40 MG Albuterol/ Ipratropium (Duoneb) 3 ml QIDR PRN INH 03/25/17 19:30 04/24/17 19:29 03/26/17 17:34 3 ML Insulin Aspart (novoLOG ASPART) SLIDING SCALE If C... ACHS SC 03/25/17 21:00 04/24/17 20:59 Future Hold 03/27/17 21:03 1 UNITS Glucose (Glucose 40% Gel) 15-30 GRAMS 15 GRAMS... UD PRN PO 03/25/17 19:30 04/24/17 19:29 Glucose (Glucose Chew Tab) 4-8 Tablets 4 Tabl... UD PRN PO 03/25/17 19:30 04/24/17 19:29 Dextrose (Dextrose 50% 50ML Syringe) 25-50ML OF 50% DW IV FOR... UD PRN IV 03/25/17 19:30 04/24/17 19:29 Glucagon (Glucagon Inj) 1 mg UD PRN SQ 03/25/17 19:30 04/24/17 19:29 Heparin Sodium (Porcine) (Heparin 10 Unit/ ml 5 ml Flush) 5 ml PRN PRN FLUSH 03/26/17 01:30 04/25/17 01:29 Albuterol/ Ipratropium (Duoneb) 3 ml QIDR INH 03/26/17 20:00 04/25/17 19:59 03/29/17 11:16 3 ML Ceftriaxone Sodium 1 gm/ Dextrose 50 ml @ 100 mls/hr Q24H IV 03/28/17 00:00 03/30/17 00:00 03/29/17 00:26 100 MLS/HR Miscellaneous (Unit Dose Compound) 1 ea Q8 PO 03/28/17 10:00 04/27/17 09:59 03/29/17 05:35 1 EA Pantoprazole Sodium 40 mg/ Syringe 10 ml @ 5 mls/min DAILY@21 IV 03/28/17 21:00 04/27/17 20:59 03/29/17 08:07 5 MLS/MIN Sodium Chloride 1,000 ml @ 75 mls/hr [id number] IV 03/29/17 11:00 03/30/17 00:19 03/29/17 11:12 75 MLS/HR Albuterol (Ventolin Hfa Inhaler) 2 puffs QID PRN INH 03/29/17 10:45 04/28/17 10:44 Furosemide (Lasix Tab) 40 mg DAILY PO 03/29/17 11:30 04/28/17 11:29 03/29/17 11:12 40 MG Isosorbide Mononitrate (Imdur Ext Rel Tab) 30 mg QAM PO 03/30/17 09:00 04/29/17 08:59 Losartan Potassium (coZAAR TAB) 25 mg DAILY PO 03/30/17 09:00 04/29/17 08:59 Metoprolol Tartrate (Lopressor Tab) 25 mg BID PO 03/29/17 21:00 04/28/17 20:59 Nitroglycerin (Nitrostat Tab) 0.4 mg UD PRN UT 03/29/17 10:45 04/28/17 10:44 Tamsulosin HCl (Flomax Cap) 0.4 mg DAILY PO 03/30/17 09:00 04/29/17 08:59 Objective Vital Signs Date Time Temp Pulse Resp B/P (MAP) Pulse Ox O2 Delivery O2 Flow Rate FiO2 03/29/17 12:05 90 Nasal Cannula 3.0 03/29/17 11:16 62 16 95 Nasal Cannula 2.0 03/29/17 10:53 36.9 58 18 154/68 (96) 98 2.0 03/29/17 08:01 90 Nasal Cannula 3.0 03/29/17 07:35 37.1 62 18 152/55 (87) 92 2.0 03/29/17 07:32 58 16 97 Nasal Cannula 3.0 03/29/17 04:14 37.0 64 18 149/69 (95) 98 Nasal Cannula 2.0 03/29/17 04:00 Nasal Cannula 3.0 03/29/17 00:04 36.7 60 18 155/69 (97) 97 Nasal Cannula 2.0 03/28/17 23:59 Nasal Cannula 3.0 03/28/17 20:00 95 Nasal Cannula 3.0 03/28/17 19:43 68 16 98 Nasal Cannula 3.0 03/28/17 19:00 36.9 61 21 152/68 (96) 98 Nasal Cannula 3.0 03/28/17 16:00 96 Nasal Cannula 3.0 03/28/17 15:59 67 18 96 Nasal Cannula 3.0 03/28/17 15:21 36.5 67 24 150/71 (97) 98 Nasal Cannula 3.0 03/28/17 12:38 90 Nasal Cannula 3.0 Physical Exam General Appearance: WD/WN, no apparent distress, + obese Eyes: normal inspection, PERRL, EOMI Neck: supple, no JVD, trachea midline Respiratory/Chest: normal breath sounds, no respiratory distress, no accessory muscle use Cardiovascular: regular rate, rhythm, no gallop, no murmur Abdomen: normal bowel sounds, non tender, soft Extremities: normal inspection, no pedal edema, no calf tenderness Neurologic/Psych: alert, normal mood/affect, oriented x 3 Skin: normal color, no jaundice, no rash Laboratory Results Last 24 Hours Test 03/28/17 16:05 03/28/17 20:19 03/29/17 04:41 03/29/17 06:42 Bedside Glucose 204 mg/dl 197 mg/dl White Blood Count 4.64 K/uL Red Blood Count 2.81 M/uL Hemoglobin 8.4 g/dL Hematocrit 28.1 % Mean Corpuscular Volume 100.0 fL Mean Corpuscular Hemoglobin 29.9 pg Mean Corpuscular Hemoglobin Concent 29.9 g/dl Platelet Count 83 K/uL Mean Platelet Volume 11.1 fL Neutrophils (%) (Auto) 69.1 % Lymphocytes (%) (Auto) 14.4 % Monocytes (%) (Auto) 9.9 % Eosinophils (%) (Auto) 5.8 % Basophils (%) (Auto) 0.6 % Neutrophils # (Auto) 3.20 K/uL Lymphocytes # (Auto) 0.67 K/uL Monocytes # (Auto) 0.46 K/uL Eosinophils # (Auto) 0.27 K/uL Basophils # (Auto) 0.03 K/uL RDW Standard Deviation 67.2 fL RDW Coefficient of Variation 18.4 % Immature Granulocyte % (Auto) 0.2 % Immature Granulocyte # (Auto) 0.01 K/uL Tear Drop Cells OCCASIONAL Ovalocytes 1+ Sodium Level 150 mmol/L Potassium Level 3.9 mmol/L Chloride Level 119 mmol/L Carbon Dioxide Level 24 mmol/L Anion Gap 7.0 mmol/L Blood Urea Nitrogen 21 mg/dl Creatinine 1.30 mg/dl Est Creatinine Clear Calc Drug Dose 43.2 ml/min Estimated GFR () 60.6 Estimated GFR (Non- 52.3 BUN/Creatinine Ratio 16.3 Random Glucose 172 mg/dl Calcium Level 9.0 mg/dl Total Bilirubin 1.2 mg/dl Direct Bilirubin 0.4 mg/dl Aspartate Amino Transf (AST/SGOT) 45 U/L Alanine Aminotransferase (ALT/SGPT) 30 U/L Alkaline Phosphatase 100 U/L Total Protein 6.1 gm/dl Albumin 3.5 gm/dl Ammonia 48.0 umol/L Test 03/29/17 07:08 03/29/17 11:06 Bedside Glucose 143 mg/dl 228 mg/dl Assessment and Plan 76 y/o with 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 MELD 12. Currently confused, decreased mentation, NH3 136. No BM x 2 days. Na 150, Cr down to 1.5. Yesterday received Lactulose enemas, and had multiple BMs. NH3 down to 48. Mentation is improved, Cr now normal to 1.3. Infectious workup negative. - DC Lactulose enema; continue Lactulose PO (titrated dose to BM 3-5x a day) and Rifaximin PO - DC Octreotide/Midodrine ; hold diuretics for now but should restart on discharge w f/u labs to monitor renal function and electrolytes - U/S abd to r/o ascites -> no ascites, noted CTA on 03/25 w/o ascites; already on Ceftriaxone for SBO coverage. - Electrolyte imbalance correction per primary team. - Will monitor; should be ok for DC soon. Late entry: Patient was seen and examined with Neda Godinez on 03/29. Her note reflects our findings and plan.
[2017-03-29] MEDS: IPRATROPIUM BROMIDE/ALBUTEROL respimat INH INH SCH ×2 (17:17→19:37)
[2017-03-29] MEDS: INSULIN ASPART 100 UNITS/ML 3 ML PEN SC SCH ×2 (17:47→20:30)
[2017-03-29] MEDS: METOPROLOL TARTRATE 25 MG TAB PO SCH (19:39)
[2017-03-29 19:56] LABS: BUN/CREATININE RATIO 12.4 (10-20); CALCIUM 8.1 mg/dl (8.5-10.1); CREATININE 1.5 mg/dl (0.60-1.40); POTASSIUM 4.1 mmol/L (3.5-5.1)
[2017-03-29] MEDS: INSULIN GLARGINE SOLOSTAR 100 UNITS/ML 3 ML PEN SC SCH (20:29)
[2017-03-29 20:32] LABS: BETA-HYDROXYBUTYRATE 0.79 mg/dL (0.2-2.81)
[2017-03-30] VITALS: BP 111/57; PULSE 55; TEMP 36.6; O2SAT 94
[2017-03-30 07:10] LABS: BASO % 1.2 %; BASO ABS # 0.05 K/uL (0-0.2); COMPLETE YES; EOS % 8.5 %; HEMATOCRIT 28.9 % (42-52); LYMPH % 14.9 %; LYMPH ABS # 0.63 K/uL (1.2-3.4); MEAN CELL VOLUME 96.3 fL (80-100); MEAN CORPUSCULAR HGB CONC 32.2 g/dl (32-36); MEAN PLATELET VOLUME 11.4 fL (7.4-10.4); MONO % 14.2 %; NEUT % 61.2 %; PLATELET COUNT 102 K/uL (130-400); WHITE BLOOD COUNT 4.23 K/uL (4.8-10.8)
[2017-03-30 07:27] LABS: BUN/CREATININE RATIO 11.8 (10-20); CALCIUM 8.8 mg/dl (8.5-10.1); CREATININE 1.3 mg/dl (0.60-1.40); POTASSIUM 3.1 mmol/L (3.5-5.1)
[2017-03-30 07:31] VITALS: BP 143/70; PULSE 56; TEMP 36.8; O2SAT 96
[2017-03-30 07:56] LABS: ANISOCYTOSIS PRESENT; POIKILOCYTOSIS PRESENT
[2017-03-30] MEDS: IPRATROPIUM BROMIDE/ALBUTEROL respimat INH INH SCH ×4 (08:25→19:32)
[2017-03-30] MEDS: PANTOprazole INJ 40 MG in SYRINGE 0 ML IV SCH (08:25)
[2017-03-30] MEDS: RIFAXIMIN TAB 550 MG TAB PO SCH ×2 (08:26→19:30)
[2017-03-30] MEDS: FERROUS GLUCONATE 324 MG TAB PO SCH ×2 (08:26→19:30)
[2017-03-30] MEDS: TAMSULOSIN HCL 0.4 MG CAP PO SCH (08:26)
[2017-03-30] MEDS: METOPROLOL TARTRATE 25 MG TAB PO SCH ×2 (08:26→19:29)
[2017-03-30] MEDS: ISOSORBIDE MONONITRATE 30 MG TABCR PO SCH (08:27)
[2017-03-30] MEDS: MAGNESIUM OXIDE 400 MG TAB PO SCH ×2 (08:27→19:31)
[2017-03-30] MEDS: LOSARTAN POTASSIUM 25 MG TAB PO SCH (08:27)
[2017-03-30] MEDS: FUROSEMIDE 40 MG TAB PO SCH (08:28)
[2017-03-30] MEDS: ROSUVASTATIN CALCIUM 20 MG TAB PO SCH (08:28)
[2017-03-30] MEDS: LACTULOSE SYRUP 30 GM/45 ML UDP PO SCH ×3 (08:28→19:30)
[2017-03-30] MEDS: POTASSIUM CHLORIDE 20 MEQ TABCR PO SCH (08:29)
[2017-03-30] MEDS: INSULIN GLARGINE SOLOSTAR 100 UNITS/ML 3 ML PEN SC SCH ×2 (08:31→20:31)
[2017-03-30] MEDS: INSULIN ASPART 100 UNITS/ML 3 ML PEN SC SCH ×4 (08:31→20:31)
[2017-03-30 08:36] VITALS: PULSE 61
[2017-03-30 11:24] VITALS: BP 135/56; PULSE 55; TEMP 36.6; O2SAT 97
[2017-03-30] MEDS ORDERED: NURSING DECISION MEDICATION ORDER SCH (11:30)
--- NOTE | 2017-03-30 12:24 | Gastroenterology Progress Note ---
Progress Note Date of Service: Mar 30, 2017 Subjective Pt evaluation today including: conversation w/ patient, physical exam, chart review, lab review, review of inpatient medication list Pt doing well, ate breakfast 100%, no n/v, abd pain. Having BMs, mentating well w intermittent confusion but close to baseline. Review of Systems Constitutional: No fever, No chills Respiratory: No cough, No shortness of breath Cardiac: No chest pain Abdomen: No pain, No nausea, No vomiting Medications Current Inpatient Medications Medications (Trade) Dose Ordered Sig/Suman Route Start Time Stop Time Status Last Admin Dose Admin Ferrous Gluconate (Ferrous Gluconate Tab) 324 mg BID PO 03/25/17 21:00 04/24/17 20:59 03/30/17 08:26 324 MG Insulin Glargine (Lantus Solostar Pen) 25 units BID SC 03/25/17 21:00 04/24/17 20:59 Future hold 03/30/17 08:31 25 UNITS Lactulose (Chronulac Syrup) 30 gm TID PO 03/25/17 21:00 04/24/17 20:59 03/30/17 08:28 30 GM Magnesium Oxide (Mag-Ox Tab) 400 mg BID PO 03/25/17 21:00 04/24/17 20:59 03/30/17 08:27 400 MG Rifaximin (Xifaxan Tab) 550 mg BID PO 03/25/17 21:00 04/24/17 20:59 03/30/17 08:26 550 MG Hydroxyzine HCl (Vistaril Tab) 25 mg HS PRN PO 03/25/17 19:30 04/24/17 19:29 Potassium Chloride (Klor-Con Tab) 20 meq DAILY PO 03/26/17 09:00 04/25/17 08:59 03/30/17 08:29 20 MEQ Rosuvastatin Calcium (Crestor Tab) 40 mg DAILY PO 03/26/17 09:00 04/25/17 08:59 03/30/17 08:28 40 MG Insulin Aspart (novoLOG ASPART) SLIDING SCALE If C... ACHS SC 03/25/17 21:00 04/24/17 20:59 Future hold 03/30/17 08:31 3 UNITS Glucose (Glucose 40% Gel) 15-30 GRAMS 15 GRAMS... UD PRN PO 03/25/17 19:30 04/24/17 19:29 Glucose (Glucose Chew Tab) 4-8 Tablets 4 Tabl... UD PRN PO 03/25/17 19:30 04/24/17 19:29 Dextrose (Dextrose 50% 50ML Syringe) 25-50ML OF 50% DW IV FOR... UD PRN IV 03/25/17 19:30 04/24/17 19:29 Glucagon (Glucagon Inj) 1 mg UD PRN SQ 03/25/17 19:30 04/24/17 19:29 Pantoprazole Sodium 40 mg/ Syringe 10 ml @ 5 mls/min DAILY@, IV 03/28/17 21:00 04/27/17 20:59 03/30/17 08:25 5 MLS/MIN Albuterol (Ventolin Hfa Inhaler) 2 puffs QID PRN INH 03/29/17 10:45 04/28/17 10:44 Furosemide (Lasix Tab) 40 mg DAILY PO 03/29/17 11:30 04/28/17 11:29 03/30/17 08:28 40 MG Isosorbide Mononitrate (Imdur Ext Rel Tab) 30 mg QAM PO 03/30/17 08:00 04/29/17 08:59 03/30/17 08:27 30 MG Losartan Potassium (coZAAR TAB) 25 mg DAILY PO 03/30/17 08:00 04/29/17 08:59 03/30/17 08:27 25 MG Metoprolol Tartrate (Lopressor Tab) 25 mg BID PO 03/29/17 20:00 04/28/17 20:59 03/30/17 08:26 25 MG Nitroglycerin (Nitrostat Tab) 0.4 mg UD PRN UT 03/29/17 10:45 04/28/17 10:44 Tamsulosin HCl (Flomax Cap) 0.4 mg DAILY PO 03/30/17 08:00 04/29/17 08:59 03/30/17 08:26 0.4 MG Albuterol/ Ipratropium (Combivent Respimat Inh) 1 puffs QID INH 03/29/17 17:00 04/28/17 16:59 03/30/17 08:25 1 PUFFS Objective Vital Signs Date Time Temp Pulse Resp B/P (MAP) Pulse Ox O2 Delivery O2 Flow Rate FiO2 03/30/17 11:24 36.6 55 18 135/56 (82) 97 Room Air 03/30/17 08:36 61 03/30/17 08:30 Room Air 03/30/17 07:31 36.8 56 20 143/70 (94) 96 Room Air 03/30/17 00:00 36.6 55 20 111/57 (75) 94 Room Air 03/30/17 00:00 Room Air 03/29/17 16:00 Room Air 03/29/17 14:59 135/87 (103) 03/29/17 14:20 36.6 62 18 141/64 (89) 96 Room Air 03/29/17 13:58 36.9 62 16 93 Physical Exam General Appearance: WD/WN, no apparent distress Eyes: normal inspection, PERRL, EOMI Neck: supple, no JVD, trachea midline Respiratory/Chest: normal breath sounds, no respiratory distress, no accessory muscle use Cardiovascular: regular rate, rhythm, no gallop, no murmur Abdomen: normal bowel sounds, non tender, soft Extremities: normal inspection, no pedal edema, no calf tenderness Neurologic/Psych: alert, normal mood/affect, + pertinent finding (oriented mostly to self, place ) Skin: normal color, no jaundice, no rash Laboratory Results Last 24 Hours Test 03/29/17 16:29 03/29/17 18:40 03/29/17 19:52 03/30/17 06:26 Bedside Glucose 299 mg/dl 259 mg/dl Sodium Level 137 mmol/L 141 mmol/L Potassium Level 4.1 mmol/L 3.1 mmol/L Chloride Level 109 mmol/L 110 mmol/L Carbon Dioxide Level 19 mmol/L 21 mmol/L Anion Gap 9.0 mmol/L 10.0 mmol/L Blood Urea Nitrogen 19 mg/dl 15 mg/dl Creatinine 1.50 mg/dl 1.30 mg/dl Est Creatinine Clear Calc Drug Dose 36.8 ml/min 44.2 ml/min Estimated GFR () 51.0 60.6 Estimated GFR (Non- 44.0 52.3 BUN/Creatinine Ratio 12.4 11.8 Random Glucose 301 mg/dl 179 mg/dl Calcium Level 8.1 mg/dl 8.8 mg/dl Beta-Hydroxybutyric Acid 0.79 mg/dL White Blood Count 4.23 K/uL Red Blood Count 3.00 M/uL Hemoglobin 9.3 g/dL Hematocrit 28.9 % Mean Corpuscular Volume 96.3 fL Mean Corpuscular Hemoglobin 31.0 pg Mean Corpuscular Hemoglobin Concent 32.2 g/dl Platelet Count 102 K/uL Mean Platelet Volume 11.4 fL Neutrophils (%) (Auto) 61.2 % Lymphocytes (%) (Auto) 14.9 % Monocytes (%) (Auto) 14.2 % Eosinophils (%) (Auto) 8.5 % Basophils (%) (Auto) 1.2 % Neutrophils # (Auto) 2.59 K/uL Lymphocytes # (Auto) 0.63 K/uL Monocytes # (Auto) 0.60 K/uL Eosinophils # (Auto) 0.36 K/uL Basophils # (Auto) 0.05 K/uL RDW Standard Deviation 61.7 fL RDW Coefficient of Variation 17.6 % Immature Granulocyte % (Auto) 0.0 % Immature Granulocyte # (Auto) 0.00 K/uL Poikilocytosis PRESENT Anisocytosis PRESENT Total Bilirubin 1.3 mg/dl Direct Bilirubin 0.3 mg/dl Aspartate Amino Transf (AST/SGOT) 51 U/L Alanine Aminotransferase (ALT/SGPT) 31 U/L Alkaline Phosphatase 147 U/L Total Protein 6.3 gm/dl Albumin 3.7 gm/dl Test 03/30/17 07:47 03/30/17 11:28 Bedside Glucose 181 mg/dl 225 mg/dl Assessment and Plan 76 y/o with 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 MELD 12. Currently confused, decreased mentation, NH3 136. No BM x 2 days. Na 150, Cr down to 1.5. Had Lactulose enemas, and had multiple BMs. NH3 down to 48. Mentation is improved, Cr now normal to 1.3. Infectious workup negative. - Continue Lactulose PO (titrated dose to BM 3-5x a day) and Rifaximin PO - Lasix restarted at 40mg a day; f/u labs to monitor renal function and electrolytes - U/S abd to r/o ascites -> no ascites, noted CTA on 03/25 w/o ascites; already on Ceftriaxone for SBO coverage. - Electrolyte imbalance correction per primary team. (Low K 3.1 today, repletion ordered) - Will sign off; pls call if new questions/concerns arise. Late entry: Patient was seen and examined with Neda Godinez on 03/30. Her note reflects our findings and plan.
[2017-03-30 15:46] VITALS: BP 106/60; PULSE 62; TEMP 36.8; O2SAT 97
[2017-03-30] MEDS ORDERED: MAGNESIUM HYDROXIDE SUSP 30 ML UDC PO PRN (16:30)
[2017-03-30] MEDS ORDERED: ALUMINUM/MAGNESIUM SUSP 30 ML UDC ONE (16:43)
[2017-03-30] MEDS ORDERED: NURSING VERBAL MED ORDER ONE (16:45)
[2017-03-30] MEDS ORDERED: ALUMINUM/MAGNESIUM SUSP 30 ML UDC PO PRN (17:00)
--- NOTE | 2017-03-30 18:22 | Progress Note ---
Internal Med Progress Note Date of Service: Mar 30, 2017. Provider Documentation: SUBJECTIVE: complained of abdominal pain followed by nausea and vomiting this evening says does not feel well OBJECTIVE: Vital Signs-as noted below Exam: General-no sign of distress Eyes-sclera non icteric ENT-NAD Neck-no JVD Lungs-CTA Heart-regular s1/s2 Abdomen-soft, non tender Extremities-no edema Neuro-no focal deficit Lab data as noted below. ASSESSMENT & PLAN: Nausea /vomiting /abdominal pain ; tolerated breakfast and lunch well developed abdominal pain , nausea this evening followed by episode of emesis ordered for clear liquid diet Xray or abdomen to assess for possible ileus Hypotension: BP has stabilized presented with hypovolumic shock due to hepatorenal syndrome -has underlying liver disease, hypovolemia/intravascular depletion from diuretics and low albumin, -CXR/UA/CT abd negative. Normal lactate and procalcitonin -was given aggressive IV fluid and was on vasopressors in ICU -had an arterial line central line that were placed in ICU -s/p 2 days of albumin IV -given midodrine-D/buddy now -was started on empiric IV antibiotics, now off as no convincing source of infection -cultures: urine negative, MRSA swab negative, blood cultures pending -repeat CXR only shows stable cardiomegaly, no evidence of failure or new changes compared to prior -BP now remains stable OOB as tolerated PT/OT Guaiac positive stool : No active GI bleed monitor Hepatic Encephalopathy: resolved , mental status approx baseline -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 -continued on lactulose TID, Rifaximin BID; - resumed Lasix -no ascites on CT abd, -GI consulted -appreciate input GLENYS on CKD Stage III: resolved -baseline Cr is 1.2 cr at baseline now -was given some IV fluids,s/p albumin infusion x2 days -avoid nephrotoxic agents Hypernatremia : corrected , normal level now given IVF 1/2 NSS x1 liter resumed Lasix low Na diet DM Type II: -insulin dependent -Last HbA1c: 7.5 % -continue Lantus + correction scale insulin -monitor BSG and adjust dose if necessary -hold PO meds -BSG AC HS AORTIC STENOSIS: -moderate to severe on last TTE -caution with fluids -1/2 NSS X1 liter only HYPERLIPIDEMIA: -continue statin CAD: -s/p stent placement -stable; no related issues presently -continue BB, Statin -Imdur, ARB held secondary to hypotension Acute anemia on Chronic Iron deficiency Anemia: -baseline Hb in 11's -continue Iron supplementation -patient was also started on octreotide -Guaiac positive in ED -monitor H&H closely, Hb has been 8.3-8.4 -GI consulted BPH: -was on Flomax, but held this admission due to hypotension GERD: -continue PPI DVT Prophylaxis: -SCDs for Guiac positive stool Vital Signs: Date Time Temp Pulse Resp B/P (MAP) Pulse Ox O2 Delivery O2 Flow Rate FiO2 03/30/17 15:46 36.8 62 20 106/60 (75) 97 Room Air 03/30/17 15:09 Room Air 03/30/17 11:24 36.6 55 18 135/56 (82) 97 Room Air 03/30/17 08:36 61 03/30/17 08:30 Room Air 03/30/17 07:31 36.8 56 20 143/70 (94) 96 Room Air 03/30/17 00:00 36.6 55 20 111/57 (75) 94 Room Air 03/30/17 00:00 Room Air Lab Results: Results Past 24 Hours Test 03/29/17 18:40 03/29/17 19:52 03/30/17 06:26 03/30/17 07:47 Range/Units Sodium Level 137 141 136-145 mmol/L Potassium Level 4.1 3.1 3.5-5.1 mmol/L Chloride Level 109 110 98-107 mmol/L Carbon Dioxide Level 19 21 21-32 mmol/L Anion Gap 9.0 10.0 3-11 mmol/L Blood Urea Nitrogen 19 15 7-18 mg/dl Creatinine 1.50 1.30 0.60-1.40 mg/dl Est Creatinine Clear Calc Drug Dose 36.8 44.2 ml/min Estimated GFR () 51.0 60.6 Estimated GFR (Non- 44.0 52.3 BUN/Creatinine Ratio 12.4 11.8 10-20 Random Glucose 301 179 70-99 mg/dl Calcium Level 8.1 8.8 8.5-10.1 mg/dl Beta-Hydroxybutyric Acid 0.79 0.2-2.81 mg/dL Bedside Glucose 259 181 70-99 mg/dl White Blood Count 4.23 4.8-10.8 K/uL Red Blood Count 3.00 4.7-6.1 M/uL Hemoglobin 9.3 14.0-18.0 g/dL Hematocrit 28.9 42-52 % Mean Corpuscular Volume 96.3 80-100 fL Mean Corpuscular Hemoglobin 31.0 25-34 pg Mean Corpuscular Hemoglobin Concent 32.2 32-36 g/dl Platelet Count 102 130-400 K/uL Mean Platelet Volume 11.4 7.4-10.4 fL Neutrophils (%) (Auto) 61.2 % Lymphocytes (%) (Auto) 14.9 % Monocytes (%) (Auto) 14.2 % Eosinophils (%) (Auto) 8.5 % Basophils (%) (Auto) 1.2 % Neutrophils # (Auto) 2.59 1.4-6.5 K/uL Lymphocytes # (Auto) 0.63 1.2-3.4 K/uL Monocytes # (Auto) 0.60 0.11-0.59 K/uL Eosinophils # (Auto) 0.36 0-0.5 K/uL Basophils # (Auto) 0.05 0-0.2 K/uL RDW Standard Deviation 61.7 36.4-46.3 fL RDW Coefficient of Variation 17.6 11.5-14.5 % Immature Granulocyte % (Auto) 0.0 % Immature Granulocyte # (Auto) 0.00 0.00-0.02 K/uL Poikilocytosis PRESENT Anisocytosis PRESENT Total Bilirubin 1.3 0.2-1 mg/dl Direct Bilirubin 0.3 0-0.2 mg/dl Aspartate Amino Transf (AST/SGOT) 51 15-37 U/L Alanine Aminotransferase (ALT/SGPT) 31 12-78 U/L Alkaline Phosphatase 147 45-117 U/L Total Protein 6.3 6.4-8.2 gm/dl Albumin 3.7 3.4-5.0 gm/dl Test 03/30/17 11:28 03/30/17 16:32 Range/Units Bedside Glucose 225 219 70-99 mg/dl
[2017-03-30] MEDS ORDERED: ONDANSETRON INJ 2 MG/ML 2 ML VIAL IV PRN (18:30)
--- NOTE | 2017-03-30 18:57 | DIAGNOSTIC IMAGING REPORT ---
ABDOMEN 2VIEW W/PA CHEST RTN CLINICAL HISTORY: 76 years-old Male presenting with abdominal pain /nausea /vomiting . TECHNIQUE: PA view of the chest and supine and upright views of the abdomen were obtained. COMPARISON: Chest CT from 03/26/[address] of the abdomen and pelvis from 03/25/2017. FINDINGS: The left internal jugular central venous catheter has been removed. Cardiomediastinal silhouette remarkable for atherosclerosis of the aortic arch. Prominent lung markings in the mid to lower lungs as on prior exam. No focal infiltrate. Trace bilateral pleural effusions likely present. Surgical clips in the left gluteal muscles projects over the left ilium. Additional radiopaque object projecting over the right ilium correlates with a clip on CT. Gallstone noted. Few additional radiodensities projecting over the right mid abdomen may correlate with intraluminal findings on recent CT. No nephrolithiasis. Mild gaseous distention of colon. No convincing evidence of bowel obstruction. Osseous structures normal. IMPRESSION: 1. Trace pleural effusions. 2. No bowel obstruction. Electronically signed by: Sina Donald M.D. 03/30/2017 6:56 PM Dictated Date/Time: 03/30/2017 6:43 PM
[2017-03-30] MEDS: PANTOprazole SOD 40 MG TAB PO SCH (19:31)
[2017-03-30 23:59] VITALS: BP 115/63; PULSE 60; TEMP 36.6; O2SAT 97
[2017-03-31] MEDS: ISOSORBIDE MONONITRATE 30 MG TABCR PO SCH (07:55)
[2017-03-31] MEDS: FERROUS GLUCONATE 324 MG TAB PO SCH (07:55)
[2017-03-31] MEDS: FUROSEMIDE 40 MG TAB PO SCH (07:55)
[2017-03-31] MEDS: METOPROLOL TARTRATE 25 MG TAB PO SCH (07:55)
[2017-03-31] MEDS: RIFAXIMIN TAB 550 MG TAB PO SCH (07:55)
[2017-03-31] MEDS: LOSARTAN POTASSIUM 25 MG TAB PO SCH (07:56)
[2017-03-31] MEDS: ROSUVASTATIN CALCIUM 20 MG TAB PO SCH (07:56)
[2017-03-31] MEDS: TAMSULOSIN HCL 0.4 MG CAP PO SCH (07:56)
[2017-03-31] MEDS: POTASSIUM CHLORIDE 20 MEQ TABCR PO SCH (07:58)
[2017-03-31] MEDS: LACTULOSE SYRUP 30 GM/45 ML UDP PO SCH ×2 (07:58→13:51)
[2017-03-31] MEDS: MAGNESIUM OXIDE 400 MG TAB PO SCH (07:58)
[2017-03-31] MEDS: IPRATROPIUM BROMIDE/ALBUTEROL respimat INH INH SCH ×3 (07:58→17:46)
[2017-03-31 08:09] VITALS: BP 115/54; PULSE 61; TEMP 36.8; O2SAT 97
[2017-03-31] MEDS: INSULIN ASPART 100 UNITS/ML 3 ML PEN SC SCH ×3 (08:09→17:49)
[2017-03-31] MEDS: INSULIN GLARGINE SOLOSTAR 100 UNITS/ML 3 ML PEN SC SCH (08:10)
[2017-03-31] MEDS: PANTOprazole SOD 40 MG TAB PO SCH (08:40)
--- NOTE | 2017-03-31 12:06 | Progress Note ---
Internal Med Progress Note Date of Service: Mar 31, 2017. Provider Documentation: SUBJECTIVE: feels much better today no complain of nausea , no abdominal pain tolerated clears well Xray of abdomen -no evidence of obstruction will advance diet to low Na stable to be transferred to [facility] today OBJECTIVE: Vital Signs-as noted below Exam: General-no sign of distress Eyes-sclera non icteric ENT-NAD Neck-no JVD Lungs-CTA Heart-regular s1/s2 Abdomen-soft, non tender Extremities-no edema Neuro-no focal deficit Lab data as noted below. ASSESSMENT & PLAN: Nausea /vomiting /abdominal pain ; symptom has resolved not sure of the etiology Xray or abdomen : IMPRESSION: 1. Trace pleural effusions. 2. No bowel obstruction. diet advanced to low Na tolerating well Hypotension: resolved BP has stabilized presented with hypovolumic shock due to hepatorenal syndrome -has underlying liver disease, hypovolemia/intravascular depletion from diuretics and low albumin, -CXR/UA/CT abd negative. Normal lactate and procalcitonin -was given aggressive IV fluid and was on vasopressors in ICU -had an arterial line central line that were placed in ICU-D/buddy -s/p 2 days of albumin IV - -was started on empiric IV antibiotics, D/buddy no convincing source of infection -cultures: urine negative, MRSA swab negative, blood cultures -no growth -repeat CXR only shows stable cardiomegaly, no evidence of failure or new changes compared to prior -BP now remains stable OOB as tolerated PT/OT recommend rehab stable to be transferred to today Guaiac positive stool : No active GI bleed HB remained stable Hepatic Encephalopathy: resolved , mental status approx baseline -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 --GI consulted -appreciate input - Continue Lactulose PO (titrated dose to BM 3-5x a day) and Rifaximin PO - Lasix restarted at 40mg a day; - U/S abd to r/o ascites -> no ascites, noted CTA on 03/25 w/o ascites; GLENYS on CKD Stage III: resolved -baseline Cr is 1.2 cr at baseline now -was given some IV fluids,s/p albumin infusion x2 days -avoid nephrotoxic agents Hypernatremia : corrected , normal level now given IVF 1/2 NSS x1 liter resumed Lasix low Na diet DM Type II: -insulin dependent -Last HbA1c: 7.5 % -continue Lantus + correction scale insulin -monitor BSG and adjust dose if necessary -hold PO meds -BSG AC HS AORTIC STENOSIS: -moderate to severe on last TTE -caution with fluids -1/2 NSS X1 liter only HYPERLIPIDEMIA: -continue statin CAD: -s/p stent placement -stable; no related issues presently -continue BB, Statin -Imdur, ARB resumed Acute anemia on Chronic Iron deficiency Anemia: -baseline Hb in 11's -continue Iron supplementation -patient was also started on octreotide -Guaiac positive in ED -monitor H&H closely, Hb has been 8.3-8.4 -GI consulted BPH: -was on Flomax, but held this admission due to hypotension GERD: -continue PPI DVT Prophylaxis: -SCDs for Guiac positive stool DISPOSITION ; pt denied for acute rehab at [facility] approved for skilled Pt refused to go to [facility] for SNF willing to return home with home Health D/w Daughter in law -family in agreement for pt to return to home with home health visiting nurse arrangements with [facility] Discharged home with home health today Vital Signs: Date Time Temp Pulse Resp B/P (MAP) Pulse Ox O2 Delivery O2 Flow Rate FiO2 03/31/17 16:26 36.5 58 16 94/57 (69) 96 Room Air 03/31/17 08:09 36.8 61 18 115/54 (74) 97 Room Air 03/31/17 08:00 Room Air 03/31/17 00:00 Room Air 03/30/17 23:59 36.6 60 18 115/63 (80) 97 Room Air 03/30/17 20:00 Room Air Lab Results: Results Past 24 Hours Test 03/30/17 20:18 03/31/17 07:55 03/31/17 11:49 03/31/17 12:14 Range/Units Bedside Glucose 310 111 233 70-99 mg/dl Sodium Level 138 136-145 mmol/L Potassium Level 3.4 3.5-5.1 mmol/L Chloride Level 107 98-107 mmol/L Carbon Dioxide Level 25 21-32 mmol/L Anion Gap 6.0 3-11 mmol/L Blood Urea Nitrogen 13 7-18 mg/dl Creatinine 1.40 0.60-1.40 mg/dl Est Creatinine Clear Calc Drug Dose 40.9 ml/min Estimated GFR () 55.4 Estimated GFR (Non- 47.8 BUN/Creatinine Ratio 9.4 10-20 Random Glucose 184 70-99 mg/dl Calcium Level 9.0 8.5-10.1 mg/dl Test 03/31/17 16:37 Range/Units Bedside Glucose 257 70-99 mg/dl
--- NOTE | 2017-03-31 12:17 | Discharge Instructions ---
Discharge Instructions Date of Service Mar 31, 2017. Admission Reason for Admission: Confusion Discharge Discharge Diagnosis / Problem: HEPATORENAL SYNDROME /HEPATIC ENCEPHALOPATHY Discharge Goals Goal(s): Decrease discomfort, Improve disease control, Diagnostic testing Activity Recommendations Activity Level: Assistance Required Therapies: Physical Therapy, Occupational Therapy Lifting Limitations: none Exercise/Sports Limitations: none . Additional Information Patient informed of condition: Yes Advance Directives: No DNR: No Level of Care: Acute Rehab Communicable Disease: No Prognosis: Stable Farley Catheter: No Current Hospital Diet Patient's current hospital diet: low Na diet Discharge Diet Recommended Diet: Low Sodium Diet (2gm Na) Pending Studies Studies pending at discharge: no Medical Emergencies . Who to Call and When: Medical Emergencies: If at any time you feel your situation is an emergency, please call 911 immediately. . Non-Emergent Contact Non-Emergency issues call your: Primary Care Provider . . "Provider Documentation" section prepared by Nida Pham. . Core Measure Problem Core Measures: None
[2017-03-31 12:48] LABS: BUN/CREATININE RATIO 9.4 (10-20); CREATININE 1.4 mg/dl (0.60-1.40); POTASSIUM 3.4 mmol/L (3.5-5.1)
[2017-03-31 16:02] VITALS: O2SAT 97
[2017-03-31 16:26] VITALS: BP 94/57; PULSE 58; TEMP 36.5; O2SAT 96
--- NOTE | 2017-03-31 17:03 | Discharge Instructions ---
Discharge Instructions Date of Service Mar 31, 2017. Admission Reason for Admission: Confusion Discharge Discharge Diagnosis / Problem: HEPATORENAL SYNDROME /HEPATIC ENCEPHALOPATHY Discharge Goals Goal(s): Decrease discomfort, Improve disease control, Diagnostic testing Activity Recommendations Activity Limitations: resume your previous activity . Instructions / Follow-Up Instructions / Follow-Up HOSPITAL FOLLOW UP : 04/05/2017 2:[address] River Gilbert MD [facility] CARDIOLOGY FOLLOW UP : 04/04/2017 1:45 PM Cooper Hemphill DO Cardiology, [facility] GI FOLLOW UP : 04/11/2017 2:00 PM MICHAEL Adam Gastroenterology, [facility] Current Hospital Diet Patient's current hospital diet: Low Sodium Diet (2gm Na), Diabetes Type 2 Diet Discharge Diet Recommended Diet: Low Sodium Diet (2gm Na), Diabetes Type 2 Diet Pending Studies Studies pending at discharge: no Medical Emergencies . Who to Call and When: Medical Emergencies: If at any time you feel your situation is an emergency, please call 911 immediately. . Non-Emergent Contact Non-Emergency issues call your: Primary Care Provider . . "Provider Documentation" section prepared by Nida Pham. . VTE Core Measure Inpt VTE Proph given/why not?: Cherelle Santiago, SCD's
--- NOTE | 2017-03-31 17:18 | Discharge Summary ---
Discharge Summary Date of Service Mar 31, 2017. Discharge Summary Admission Date: Mar 25, 2017 at 19:17 Discharge Date: Mar 31, 2017 Discharge Disposition: Home with services Principal Diagnosis: HEPATORENAL SYNDROME /HEPATIC ENCEPHALOPATHY Procedures: CT ANGIOGRAM OF ABDOMEN /PELVIS : IMPRESSION: 1. There is no aneurysm or dissection seen involving the abdominal aorta. 2. Unremarkable CT angiogram of the major branches of the abdominal aorta. 3. There are no acute infectious or inflammatory findings in abdomen or pelvis. 4. Cirrhotic liver morphology with evidence of portal hypertension including splenomegaly, perisplenic varices, and a splenorenal shunt. 5. Cardiomegaly and small hiatal hernia. 6. Mild colonic diverticulosis without CT evidence of acute diverticulosis. 7. Cholelithiasis. 8. Prostatomegaly with evidence of chronic bladder outlet obstruction. 9. Additional findings as above. USG OF ABDOMEN : IMPRESSION: No abdominal ascites is identified at the time of examination. CT HEAD : IMPRESSION: There is no hemorrhage, mass effect, or evidence of acute territorial ischemia by CT criteria. Consultations: [facility] Medication Reconciliation Continued Medications: Albuterol Hfa (Ventolin Hfa) 200 Puffs/61333 Mcg Aers 2 PUFFS INH QID PRN for Cough Empagliflozin (Jardiance) 10 Mg Tab 10 MG PO QAM Ferrous Gluconate (Ferrous Gluconate) 324 Mg Tab 324 MG PO BID Furosemide (Furosemide) 40 Mg Tab 40 MG PO DAILY Hydroxyzine Pamoate (Vistaril) 25 Mg Cap 25 MG PO HS PRN for Anxiety Insulin Aspart (Novolog Flexpen) 100 Units/Ml Inj 45 UNITS SC AC Insulin Glargine (Lantus Solostar) 100 Unit/Ml Inj 45 UNITS SC AMPM Isosorbide Mononitrate Ext Rel (Imdur Ext Rel) 30 Mg Tabcr 30 MG PO QAM Lactulose (Chronulac) 10 Gm/15 Ml Syrp 30 ML PO TID TAKE 30 ML BY MOUTH 3 TIMES A DAY. HOLD ADDITIONAL DOSE FOR THAT DAY IF ALREADY HAD 3 BOWEL MOVEMENTS Losartan Potassium (Losartan Potassium) 25 Mg Tab 25 MG PO DAILY Magnesium Oxide (Mag-Ox) 400 Mg Tab 400 MG PO BID, TAB Metoprolol Tartrate (Lopressor) 25 Mg Tab 25 MG PO BID Nitroglycerin (Nitrostat) 0.4 Mg Tab 0.4 MG UT UD PRN for Chest Pain PLACE ONE TABLET UNDER THE TONGUE EVERY 5 MINUTES FOR UP TO 3 DOSES IF NEEDED FOR CHEST PAIN Pantoprazole (Pantoprazole Sodium) 40 Mg Tab 40 MG PO BID Potassium Chloride (Potassium Chloride Er) 10 Meq Tab 20 MEQ PO DAILY Rifaximin (Xifaxan) 550 Mg Tab 550 MG PO BID, TAB Rosuvastatin Calcium (Rosuvastatin Calcium) 40 Mg Tab 40 MG PO DAILY Tamsulosin HCl (Tamsulosin HCl) 0.4 Mg Cap 0.4 MG PO DAILY Admission Information HPI (per Admitting provider): Patient is a 76 yr old male with PMHx of KLEIN cirrhosis, IDDM, CAD s/p stent, CKD III, Severe , BPH, GERD, and CLAUDIO presents to ED stating he was not feeling well " I feel lousy"today. He was found to be hypotensive with SBP in 60s and his ammonia levels is elevated at 153. Patient reported abdominal pain earlier today which resolved after having an episode of vomiting. Also reports dry cough since 2 days. States taking his medications regularly although compliance is questionable as per family. He states having dark colored stools secondary to taking Iron pills and is guaiac positive in ED. He denies any history of chest pain, SOB, fever, chills, diarrhea, headache, dizziness, recent travel, sick contact, change in appetite, urinary symptoms. CT abdomen no acute process. Patient received IVF boluses in ED but still has SBP in 80s. Physical Exam (per Admitting): General Appearance: WD/WN, no apparent distress Head: normocephalic, atraumatic Eyes: normal inspection, PERRL, EOMI ENT: normal ENT inspection, hearing grossly normal Neck: supple, trachea midline Respiratory/Chest: chest non-tender, lungs clear, normal breath sounds, no accessory muscle use Cardiovascular: regular rate, rhythm, no edema, + systolic murmur Abdomen/GI: normal bowel sounds, non tender, soft Back: normal inspection Extremities/Musculoskelatal: normal inspection, no pedal edema, + pertinent finding (Excoriations on B/L LE ) Neurologic/Psych: tank processor II-XII nml as tested, no motor/sensory deficits, alert , oriented x 3, + pertinent finding (Lethargic) Skin: normal color, warm/dry Hospital Course Nausea /vomiting /abdominal pain ; symptom has resolved not sure of the etiology Xray or abdomen : IMPRESSION: 1. Trace pleural effusions. 2. No bowel obstruction. diet advanced to low Na tolerating well Hypotension: resolved BP has stabilized presented with hypovolumic shock due to hepatorenal syndrome -has underlying liver disease, hypovolemia/intravascular depletion from diuretics and low albumin, -CXR/UA/CT abd negative. Normal lactate and procalcitonin -was given aggressive IV fluid and was on vasopressors in ICU -had an arterial line central line that were placed in ICU-D/buddy -s/p 2 days of albumin IV - -was started on empiric IV antibiotics, D/buddy no convincing source of infection -cultures: urine negative, MRSA swab negative, blood cultures -no growth -repeat CXR only shows stable cardiomegaly, no evidence of failure or new changes compared to prior -BP now remains stable OOB as tolerated PT/OT recommend rehab stable to be transferred to today Guaiac positive stool : No active GI bleed HB remained stable Hepatic Encephalopathy: resolved , mental status approx baseline -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 --GI consulted -appreciate input - Continue Lactulose PO (titrated dose to BM 3-5x a day) and Rifaximin PO - Lasix restarted at 40mg a day; - U/S abd to r/o ascites -> no ascites, noted CTA on 03/25 w/o ascites; GLENYS on CKD Stage III: resolved -baseline Cr is 1.2 cr at baseline now -was given some IV fluids,s/p albumin infusion x2 days -avoid nephrotoxic agents Hypernatremia : corrected , normal level now given IVF 1/2 NSS x1 liter resumed Lasix low Na diet DM Type II: -insulin dependent -Last HbA1c: 7.5 % -continue Lantus + correction scale insulin -monitor BSG and adjust dose if necessary -hold PO meds -BSG [facility] AORTIC STENOSIS: -moderate to severe on last TTE -caution with fluids -1/2 NSS X1 liter only HYPERLIPIDEMIA: -continue statin CAD: -s/p stent placement -stable; no related issues presently -continue BB, Statin -Imdur, ARB resumed Acute anemia on Chronic Iron deficiency Anemia: -baseline Hb in 11's -continue Iron supplementation -patient was also started on octreotide -Guaiac positive in ED -monitor H&H closely, Hb has been 8.3-8.4 -GI consulted BPH: -was on Flomax, but held this admission due to hypotension GERD: -continue PPI DVT Prophylaxis: -SCDs for Guiac positive stool DISPOSITION ; pt denied for acute rehab at [facility] approved for skilled Pt refused to go to [facility] for SNF willing to return home with home Health D/w Daughter in law -family in agreement for pt to return to home with home health visiting nurse arrangements with [facility] Discharged home with home health today Total time spent on discharge = 40 MINS This includes examination of the patient, discharge planning, medication reconciliation, and communication with other providers. Discharge Instructions Discharge Instructions Date of Service Mar 31, 2017. Admission Reason for Admission: Confusion Discharge Discharge Diagnosis / Problem: HEPATORENAL SYNDROME /HEPATIC ENCEPHALOPATHY Discharge Goals Goal(s): Decrease discomfort, Improve disease control, Diagnostic testing Activity Recommendations Activity Limitations: resume your previous activity . Instructions / Follow-Up Instructions / Follow-Up HOSPITAL FOLLOW UP : 04/05/2017 2:[address] River Gilbert MD [facility] CARDIOLOGY FOLLOW UP : 04/04/2017 1:45 PM Cooper Hemphill DO Cardiology, [facility] GI FOLLOW UP : 04/11/2017 2:00 PM MICHAEL Adam Gastroenterology, [facility] Current Hospital Diet Patient's current hospital diet: Low Sodium Diet (2gm Na), Diabetes Type 2 Diet Discharge Diet Recommended Diet: Low Sodium Diet (2gm Na), Diabetes Type 2 Diet Pending Studies Studies pending at discharge: no Medical Emergencies . Who to Call and When: Medical Emergencies: If at any time you feel your situation is an emergency, please call 911 immediately. . Non-Emergent Contact Non-Emergency issues call your: Primary Care Provider . . "Provider Documentation" section prepared by Nida Pham. . VTE Core Measure Inpt VTE Proph given/why not?: Cherelle Santiago, SCD's Additional Copies To Neda Godinez CRNP
[2017-03-31 17:27] VITALS: BP 94/57; PULSE 58; TEMP 36.5; O2SAT 96
== END 2017-03-31 18:30 | disposition home health service (06) | DRG 441 ==
LOC: EDBD 16:34 → C.EDC 16:36 → C.MSICU 19:17 → ENRESERV 19:24 → C.2T 03-26 12:28 → ENRESERV 03-29 13:15 → C.4E 03-29 14:17
PROVIDERS: ADMIT Internal Medicine; ATTEND Hospitalist
PROC: 02HV33Z Insertion of Infusion Device into Superior Vena Cava, Percutaneous Approach (ICD-10-PCS; principal; 2017-03-25)
DX: K76.7 Hepatorenal syndrome (principal); R57.1 Hypovolemic shock; N17.9 Acute kidney failure, unspecified; R18.8 Other ascites; K76.6 Portal hypertension; E87.0 Hyperosmolality and hypernatremia; I95.9 Hypotension, unspecified; E88.09 Other disorders of plasma-protein metabolism, not elsewhere classified; K74.60 Unspecified cirrhosis of liver; N18.3 Chronic kidney disease, stage 3 (moderate); K72.90 Hepatic failure, unspecified without coma; R10.9 Unspecified abdominal pain; R11.2 Nausea with vomiting, unspecified; D50.9 Iron deficiency anemia, unspecified; E78.5 Hyperlipidemia, unspecified; K75.81 Nonalcoholic steatohepatitis (NASH); I25.10 Atherosclerotic heart disease of native coronary artery without angina pectoris; N40.0 Benign prostatic hyperplasia without lower urinary tract symptoms; K21.9 Gastro-esophageal reflux disease without esophagitis; Z66 Do not resuscitate; E11.22 Type 2 diabetes mellitus with diabetic chronic kidney disease; I35.0 Nonrheumatic aortic (valve) stenosis; D69.6 Thrombocytopenia, unspecified; K44.9 Diaphragmatic hernia without obstruction or gangrene; E86.0 Dehydration; E66.9 Obesity, unspecified; K31.89 Other diseases of stomach and duodenum; R19.5 Other fecal abnormalities; Z95.5 Presence of coronary angioplasty implant and graft; Z91.19 Patient's noncompliance with other medical treatment and regimen; Z98.1 Arthrodesis status; Z87.891 Personal history of nicotine dependence; Z79.899 Other long term (current) drug therapy; Z79.4 Long term (current) use of insulin; Z79.84 Long term (current) use of oral hypoglycemic drugs; Z68.34 Body mass index [BMI] 34.0-34.9, adult

== ENCOUNTER 2017-04-23 17:28 | Inpatient (IN) | payer OTHER ==
[~2017-04-23] VITALS: Ht 157.5 cm; Wt 85.3 kg
[2017-04-23] MEDS ORDERED: SODIUM CHLORIDE 0.9% 1000ML 1,000 ML IV STA (17:42)
[2017-04-23] MEDS ORDERED: SODIUM CHLORIDE 0.9% 500ML 500 ML IV STA (17:42)
[2017-04-23 17:56] LABS: HEMATOCRIT 32.6 % (42-52); MEAN CELL VOLUME 99.1 fL (80-100); MEAN CORPUSCULAR HEMOGLOBIN 31.3 pg (25-34); MEAN CORPUSCULAR HGB CONC 31.6 g/dl (32-36); RED BLOOD COUNT 3.29 M/uL (4.7-6.1); WHITE BLOOD COUNT 4.28 K/uL (4.8-10.8)
--- NOTE | 2017-04-23 17:59 | DIAGNOSTIC IMAGING REPORT ---
CHEST ONE VIEW PORTABLE CLINICAL HISTORY: Weakness COMPARISON STUDY: 03/30/2017 FINDINGS: The heart is mildly enlarged. There is no failure. There is no focal pulmonary consolidation. There is suspected trace pleural effusions. IMPRESSION: Suspected trace pleural effusions. No evidence of focal pulmonary consolidation. Electronically signed by: Paulino Kat M.D. 04/23/2017 5:58 PM Dictated Date/Time: 04/23/2017 5:57 PM
[2017-04-23 18:12] LABS: INR 1.1 (0.9-1.1); PARTIAL THROMBOPLASTIN RATIO 1.1; PROTHROMBIN TIME (PATIENT) 12.2 SECONDS (9.0-12.0)
[2017-04-23] MEDS ORDERED: FOLI1TAB7 PO (18:18)
[2017-04-23 18:28] LABS: ALKALINE PHOSPHATASE 292 U/L (45-117); ALT/SGPT 44 U/L (12-78); AST/SGOT 69 U/L (15-37); BLOOD UREA NITROGEN 13 mg/dl (7-18); BUN/CREATININE RATIO 7.3 (10-20); CALCIUM 8.8 mg/dl (8.5-10.1); CARBON DIOXIDE 25 mmol/L (21-32); CHLORIDE 107 mmol/L (98-107); CKMB/CK RATIO 1.6 (0-3.0); MAGNESIUM 2.3 mg/dl (1.8-2.4); POTASSIUM 3.8 mmol/L (3.5-5.1); SODIUM 140 mmol/L (136-145)
[2017-04-23 18:29] LABS: GLUCOSE 368 mg/dl (70-99)
[2017-04-23 18:48] LABS: BETA-HYDROXYBUTYRATE 0.69 mg/dL (0.2-2.81)
--- NOTE | 2017-04-23 18:59 | DIAGNOSTIC IMAGING REPORT ---
CT HEAD WITHOUT CONTRAST (CT) CLINICAL HISTORY: Weakness, lightheadedness. COMPARISON STUDY: 03/27/2017 TECHNIQUE: Axial CT of the brain is performed from the vertex to the skull base. IV contrast was not administered for this examination. A dose lowering technique was utilized adhering to the principles of ALARA. CT DOSE: 601.98 mGy.cm FINDINGS: No intra or extra-axial mass lesions are visualized. There is no CT evidence of acute cortical infarction. There is no evidence of midline shift. There is no acute hemorrhage. No calvarial fractures are visualized. There are minimal white matter hypodensities likely on a small vessel basis. There is no evidence of pathologic ventricular dilatation. There is no evidence of acute sinusitis IMPRESSION: No significant change from the preceding study. No acute intracranial findings. Electronically signed by: Paulino Kat M.D. 04/23/2017 6:58 PM Dictated Date/Time: 04/23/2017 6:56 PM
[2017-04-23 19:03] LABS: PLATELET COUNT 76 K/uL (130-400)
[2017-04-23 19:04] LABS: ANISOCYTOSIS PRESENT; BASO % 0.9 %; BASO ABS # 0.04 K/uL (0-0.2); COMPLETE YES; EOS % 3.7 %; IG% 0.2 %; LYMPH % 20.6 %; LYMPH ABS # 0.88 K/uL (1.2-3.4); MEAN PLATELET VOLUME 10.8 fL (7.4-10.4); MONO % 12.6 %; PLT ESTIMATE DECREASED; POLYCHROMASIA 1+; TEAR DROP CELLS 1+
[2017-04-23] MEDS ORDERED: LACTULOSE SYRUP 20 GM/30 ML UDC PO STA (19:13)
[2017-04-23] MEDS ORDERED: INSULIN GLARGINE SOLOSTAR 100 UNITS/ML 3 ML PEN SC ONE (20:05)
[2017-04-23] MEDS ORDERED: INSULIN ASPART 100 UNITS/ML 3 ML PEN SC ONE (20:08)
[2017-04-23] MEDS ORDERED: DEXTROSE 50% 50 ML SYR IV PRN (20:15)
[2017-04-23] MEDS ORDERED: GLUCAGON FOR INJ 1 MG VIAL SQ PRN (20:15)
[2017-04-23] MEDS ORDERED: GLUCOSE 10 TABS/TUBE PO PRN (20:15)
[2017-04-23] MEDS ORDERED: GLUCOSE 40% GEL 15 GM TUBE PO PRN (20:15)
[2017-04-23 20:25] LABS: URINE APPEARANCE CLOUDY (CLEAR); URINE BILIRUBIN NEG (NEG); URINE COLOR YELLOW; URINE EPITHELIAL CELL AUTO 0-5 /lpf (0-5); URINE NITRITE NEG (NEG); URINE SPECIFIC GRAVITY 1.025 (1.000-1.030); UROBILINOGEN NEG (NEG)
[2017-04-23 20:47] LABS: MANUAL MICROSCOPIC REQUIRED? NO; REVIEW REQ? NO
--- NOTE | 2017-04-23 21:12 | EMERGENCY ROOM VISIT NOTE ---
History Report prepared by Pranav: Alexandra Rodriguez Under the Supervision of: Dr. Jonathan Tinoco M.D. First contact with patient: 17:37 Chief Complaint: ABNORMAL LABS Stated Complaint: ABNORMAL LABS History of Present Illness The patient is a 76 year old male who presents to the Emergency Room with complaints of persistent abnormal labs that were drawn on Tuesday at the [facility]. The patient's states that the patient had ammonia levels and an INR drawn. She states that the patient was called today and told that his labs were abnormal and he should come to the emergency department for further work up. The patient's denies the patient being confused as he has in the past. She does report that the patient's speech has been slurred. The patient's states that the patient's PCP has reported that the patient's liver and kidneys are not in good shape. The patient states that he has been feeling lightheaded and dizzy, stating that he has a history of vertigo. He states that he took two Meclizine. The patient additionally reports that he vomited. Pt denies LOC, headache, fevers, chills, diaphoresis, visual changes, neck pain, chest pain, breathing difficulties, nausea, abdominal pain, back pain, melena, hematochezia, urinary symptoms, numbness, weakness, lymphadenopathy, rash, or other complaints. Per records from [facility], the patient had an ammonia level of 99, he was hypotensive, and anemic with a hemoglobin of 9.4. Source of History: patient, spouse/significant other () Onset: drawn Tuesday Position: other (global) Quality: other (abnormal labs) Timing: other (persistent) Associated Symptoms: + vomiting Note: Associated Symptoms: dizzy lightheaded Review of Systems See HPI for pertinent positives and negatives. A total of ten systems were reviewed and were otherwise negative. 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 (6) Confusion (7) Diabetes mellitus type 2 in obese (8) Diverticulosis (9) Dyslipidemia (10) GERD (gastroesophageal reflux disease) (11) GI bleed (12) Hepatic encephalopathy (13) Hiatal hernia (14) HTN (hypertension) (15) Kidney stone (16) Noncompliance (17) Portal hypertensive gastropathy (18) Transaminitis Surgical Problems: (1) H/O hemorrhoidectomy (2) History of cardiac catheterization (3) History of colonoscopy (4) History of lumbar laminectomy Family History FHx: heart disease FATHER ( from [place] age 65) BROTHER ([place] in his 40s) Social History Smoking Status: Former Smoker Alcohol Use: none Drug Use: none Housing Status: lives with family Occupation Status: retired Current/Historical Medications Scheduled Empagliflozin (Jardiance), 10 MG PO QAM Ferrous Gluconate (Ferrous Gluconate), 324 MG PO BID Folic Acid (Folvite), 1 MG PO DAILY Furosemide (Furosemide), 40 MG PO DAILY Insulin Aspart (Novolog Flexpen), 45 UNITS SC AC Insulin Glargine (Lantus Solostar), 45 UNITS SC AMPM Isosorbide Mononitrate Ext Rel (Imdur Ext Rel), 30 MG PO QAM Lactulose (Chronulac), 30 ML PO TID Losartan Potassium (Losartan Potassium), 25 MG PO DAILY Magnesium Oxide (Mag-Ox), 400 MG PO BID Metoprolol Tartrate (Lopressor), 25 MG PO BID Pantoprazole (Pantoprazole Sodium), 40 MG PO BID Potassium Chloride (Potassium Chloride Er), 20 MEQ PO DAILY Rifaximin (Xifaxan), 550 MG PO BID Rosuvastatin Calcium (Rosuvastatin Calcium), 40 MG PO DAILY Tamsulosin HCl (Tamsulosin HCl), 0.4 MG PO DAILY Scheduled PRN Albuterol Hfa (Ventolin Hfa), 2 PUFFS INH QID PRN for Cough Hydroxyzine Pamoate (Vistaril), 25 MG PO HS PRN for Anxiety Nitroglycerin (Nitrostat), 0.4 MG UT UD PRN for Chest Pain Allergies Coded Allergies: PRASHANT Inhibitors (Verified Allergy, Severe, ANGIOEDEMA from 10/10/11 ED adm, 04/23/17) Lisinopril (Verified Allergy, Severe, Edema - face, lips and tongue, ) Simvastatin (Verified Allergy, Unknown, RASH, SORE ALL OVER. 2013: Uses Crestor, 04/23/17) Physical Exam Vital Signs Date Time Temp Pulse Resp B/P (MAP) Pulse Ox O2 Delivery O2 Flow Rate FiO2 8/5/17 20:33 61 16 120/46 95 Room Air 04/23/17 20:00 62 16 114/89 97 Room Air 04/23/17 19:25 61 04/23/17 19:02 59 16 92/38 95 Room Air 04/23/17 18:27 65 18 94/46 96 Room Air 67 101/52 69 103/72 04/23/17 18:27 98 Room Air 04/23/17 17:30 36.3 65 18 94/46 96 Room Air Physical Exam GENERAL: Awake, alert, well-appearing, in no distress HENT: Normocephalic, atraumatic. Oropharynx unremarkable. EYES: Normal conjunctiva. Sclera non-icteric. NECK: Supple. No nuchal rigidity. FROM. No JVD. RESPIRATORY: Clear to auscultation. CARDIAC: Regular rate, normal rhythm. Extremities warm and well perfused. Pulses equal. ABDOMEN: Soft, non-distended. No tenderness to palpation. No rebound or guarding. No masses. RECTAL: Deferred. MUSCULOSKELETAL: Chest examination reveals no tenderness. The back is symmetrical on inspection without obvious abnormality. There is no CVA tenderness to palpation. No joint edema. LOWER EXTREMITIES: Calves are equal size bilaterally and non-tender. 2 plus lower extremity edema. No discoloration. NEURO: Normal sensorium. speech is a little bit slow. SKIN: No rash or jaundice noted. Medical Decision & Procedures ER Provider Diagnostic Interpretation: Radiology results as stated below per my review and radiologist interpretation: CT HEAD WITHOUT CONTRAST (CT) CLINICAL HISTORY: Weakness, lightheadedness. COMPARISON STUDY: 03/27/2017 TECHNIQUE: Axial CT of the brain is performed from the vertex to the skull base. IV contrast was not administered for this examination. A dose lowering technique was utilized adhering to the principles of ALARA. CT DOSE: 601.98 mGy.cm FINDINGS: No intra or extra-axial mass lesions are visualized. There is no CT evidence of acute cortical infarction. There is no evidence of midline shift. There is no acute hemorrhage. No calvarial fractures are visualized. There are minimal white matter hypodensities likely on a small vessel basis. There is no evidence of pathologic ventricular dilatation. There is no evidence of acute sinusitis IMPRESSION: No significant change from the preceding study. No acute intracranial findings. Electronically signed by: Paulino Kat M.D. 04/23/2017 6:58 PM Dictated Date/Time: 04/23/2017 6:56 PM CHEST ONE VIEW PORTABLE CLINICAL HISTORY: Weakness COMPARISON STUDY: 03/30/2017 FINDINGS: The heart is mildly enlarged. There is no failure. There is no focal pulmonary consolidation. There is suspected trace pleural effusions. IMPRESSION: Suspected trace pleural effusions. No evidence of focal pulmonary consolidation. Electronically signed by: Paulino Kat M.D. 04/23/2017 5:58 PM Dictated Date/Time: 04/23/2017 5:57 PM Laboratory Results 04/23/17 17:45 Red Blood Count 3.29, Mean Corpuscular Volume 99.1, Mean Corpuscular Hemoglobin 31.3, Mean Corpuscular Hemoglobin Concent 31.6, Mean Platelet Volume 10.8, Neutrophils (%) (Auto) 62.0, Lymphocytes (%) (Auto) 20.6, Monocytes (%) (Auto) 12.6, Eosinophils (%) (Auto) 3.7, Basophils (%) (Auto) 0.9, Neutrophils # (Auto ) 2.65, Lymphocytes # (Auto) 0.88, Monocytes # (Auto) 0.54, Eosinophils # (Auto ) 0.16, Basophils # (Auto) 0.04 04/23/17 17:45 Test 04/23/17 17:45 04/23/17 18:37 04/23/17 19:55 04/23/17 20:10 White Blood Count 4.28 K/uL (4.8-10.8) Red Blood Count 3.29 M/uL (4.7-6.1) Hemoglobin 10.3 g/dL (14.0-18.0) Hematocrit 32.6 % (42-52) Mean Corpuscular Volume 99.1 fL (80-100) Mean Corpuscular Hemoglobin 31.3 pg (25-34) Mean Corpuscular Hemoglobin Concent 31.6 g/dl (32-36) Platelet Count 76 K/uL (130-400) Mean Platelet Volume 10.8 fL (7.4-10.4) Neutrophils (%) (Auto) 62.0 % Lymphocytes (%) (Auto) 20.6 % Monocytes (%) (Auto) 12.6 % Eosinophils (%) (Auto) 3.7 % Basophils (%) (Auto) 0.9 % Neutrophils # (Auto) 2.65 K/uL (1.4-6.5) Lymphocytes # (Auto) 0.88 K/uL (1.2-3.4) Monocytes # (Auto) 0.54 K/uL (0.11-0.59) Eosinophils # (Auto) 0.16 K/uL (0-0.5) Basophils # (Auto) 0.04 K/uL (0-0.2) RDW Standard Deviation 62.7 fL (36.4-46.3) RDW Coefficient of Variation 17.5 % (11.5-14.5) Immature Granulocyte % (Auto) 0.2 % Immature Granulocyte # (Auto) 0.01 K/uL (0.00-0.02) Platelet Estimate DECREASED Polychromasia 1+ Anisocytosis PRESENT Tear Drop Cells 1+ Prothrombin Time 12.2 SECONDS (9.0-12.0) Prothromb Time International Ratio 1.1 (0.9-1.1) Activated Partial Thromboplast Time 28.8 SECONDS (21.0-31.0) Partial Thromboplastin Ratio 1.1 Anion Gap 8.0 mmol/L (3-11) Est Creatinine Clear Calc Drug Dose 32.0 ml/min Estimated GFR () 40.9 Estimated GFR (Non- 35.3 BUN/Creatinine Ratio 7.3 (10-20) Calcium Level 8.8 mg/dl (8.5-10.1) Magnesium Level 2.3 mg/dl (1.8-2.4) Total Bilirubin 0.9 mg/dl (0.2-1) Direct Bilirubin 0.3 mg/dl (0-0.2) Aspartate Amino Transf (AST/SGOT) 69 U/L (15-37) Alanine Aminotransferase (ALT/SGPT) 44 U/L (12-78) Alkaline Phosphatase 292 U/L (45-117) Total Creatine Kinase 99 U/L (39-308) Creatine Kinase MB 1.6 ng/ml (0.5-3.6) Creatine Kinase MB Ratio 1.6 (0-3.0) Troponin I < 0.015 ng/ml (0-0.045) Total Protein 6.2 gm/dl (6.4-8.2) Albumin 3.1 gm/dl (3.4-5.0) Lipase 478 U/L (73-393) Beta-Hydroxybutyric Acid 0.69 mg/dL (0.2-2.81) Thyroid Stimulating Hormone (TSH) 3.390 uIu/ml (0.300-4.500) Ammonia 106.0 umol/L (11-32) Urine Color YELLOW Urine Appearance CLOUDY (CLEAR) Urine pH 6.0 (4.5-7.5) Urine Specific [place] 1.025 (1.000-1.030) Urine Protein NEG (NEG) Urine Glucose (UA) 3+ (NEG) Urine Ketones NEG (NEG) Urine Occult Blood NEG (NEG) Urine Nitrite NEG (NEG) Urine Bilirubin NEG (NEG) Urine Urobilinogen NEG (NEG) Urine Leukocyte Esterase NEG (NEG) Urine WBC (Auto) 1-5 /hpf (0-5) Urine RBC (Auto) 0-4 /hpf (0-4) Urine Hyaline Casts (Auto) 0 /lpf (0-5) Urine Epithelial Cells (Auto) 0-5 /lpf (0-5) Urine Bacteria (Auto) NEG (NEG) Test 04/23/17 20:17 Bedside Glucose 384 mg/dl (70-99) Laboratory results reviewed by me Medications Administered Medications (Trade) Dose Ordered Sig/Suman Route Start Time Stop Time Status Last Admin Dose Admin Sodium Chloride 1,000 ml @ 125 mls/hr Q8H STAT IV 04/23/17 17:42 04/24/17 01:41 04/23/17 20:32 125 MLS/HR Sodium Chloride 500 ml @ 999 mls/hr Q31M STAT IV 04/23/17 17:42 04/23/17 18:12 DC 04/23/17 17:42 999 MLS/HR Lactulose (Chronulac Syrup) 30 gm NOW STAT PO 04/23/17 19:13 04/23/17 19:15 DC 04/23/17 19:22 30 GM Insulin Glargine (Lantus Solostar Pen) 30 units 2005 ONCE SC 04/23/17 20:05 04/23/17 20:08 DC 04/23/17 20:23 30 UNITS ECG Indication: other (abnormal labs) Rate (beats per minute): 61 Rhythm: normal sinus Findings: left axis deviation, prolonged QT, other (LVH) ED Course 1740: The patient was evaluated in room C6. A complete history and physical exam was performed. 1741: Ordered Sodium Chloride 500 ml @ 999 mls/hr IV, Sodium Chloride 1000 ml @ 125 mls/hr IV. 1827: I reevaluated the patient and he is resting comfortably. I updated him on his test results thus far. 1912: Ordered lactulose 30 gm PO. 1914: I reevaluated the patient and he is resting comfortably. I discussed the exam findings with him and I discussed the treatment plan. He and his family verbalized complete understanding and agreement. The patient will be evaluated for further treatment. 1925: I discussed the patients case with Jhon Chapa. He is going to evaluate the patient for further treatment. Medical Decision Triage Nursing notes reviewed. The patient's presentation and history were concerning for abnormal patient laboratory studies and lightheadedness with a history of liver failure and hyperammonemia. Outpatient tests were reviewed. The patient has a markedly elevated ammonia level. Etiologies such as hyperammonemia, metabolic, infection, hypo/hyperglycemia, electrolyte abnormalities, cardiac sources, intracerebral event, toxicologic, neurologic, as well as others were entertained. The patient was evaluated. Blood work was obtained. His CBC showed a mild anemia. Chemistry panel revealed a slight elevation of his creatinine of 1.8, hypoglycemia, and minimally elevated LFTs. Troponin, TSH, and lipase were unremarkable. Chest x-ray was unremarkable. CT head as above. The patient's ammonia level was significantly elevated at 106. I suspect that this is contributing to his symptoms. The patient was given lactulose. Records reviewed and when he left the hospital last month his ammonia level was 48. Consultation was made with the [facility] hospitalist. The patient was evaluated in the Emergency Room for further management. Medication Reconcilliation Current Medication List: was personally reviewed by me Blood Pressure Screening Patient's blood pressure: Normal blood pressure Blood pressure disposition: Did not require urgent referral Consults Time Called: 1913 Consulting Physician: Jhon Chapa Returned Call: 1925 I discussed the patients case with Jhon Chapa. He is going to evaluate the patient for further treatment. Impression Primary Impression: Hyperammonemia Additional Impression: Lightheadedness Scribe Attestation The scribe's documentation has been prepared under my direction and personally reviewed by me in its entirety. I confirm that the note above accurately reflects all work, treatment, procedures, and medical decision making performed by me. Departure Information Dispostion Being Evaluated By Hospitalist Referrals No Doctor, Assigned (PCP) Problem Qualifiers
[2017-04-23] MEDS ORDERED: ALBUT/IPRATROP 3MG/0.5MG NEB 3 ML VIAL INH PRN (21:45)
[2017-04-23] MEDS ORDERED: ACETAMINOPHEN 325 MG TAB PO PRN (21:45)
[2017-04-23 21:49] LABS: LARGE PLATELETS 1+
[2017-04-23] MEDS ORDERED: LACTATED RINGER'S 1000ML 1,000 ML IV ONE (22:30)
[2017-04-23 22:51] VITALS: BP 109/61; PULSE 56; TEMP 36.8; O2SAT 93
[2017-04-23] MEDS: RIFAXIMIN TAB 550 MG TAB PO SCH (23:28)
[2017-04-24 02:50] VITALS: BP 109/61; PULSE 56; TEMP 36.8; O2SAT 98
--- NOTE | 2017-04-24 06:11 | HISTORY & PHYSICAL EXAMINATION ---
DATE OF ADMISSION: 04/23/2017 PRIMARY CARE PHYSICIAN: Dr. Baltazar. CHIEF COMPLAINT: Abnormal blood work. HISTORY OF PRESENT ILLNESS: History obtained from the patient and records. Medical history significant for cirrhosis secondary to nonalcoholic fatty liver disease, DM2, insulin requiring, CAD sp stenting, HTN, severe aortic stenosis, chronic renal insufficiency (baseline creatinine of 1.3- 1.7), Chronic anemia, baseline hemoglobin of 8-9, past tobacco abuse. Subsequent confinements in the last 2 months for hepatic encephalopathy. Recent confinement in March of 2017 for hepatic encephalopathy, possible hepatorenal syndrome. Patient was seen at [facility] Hematology office for evaluation and treatment options for anemia in the setting advanced cirrhosis and hepatic encephalopathy. Impression was multifactorial anemia. Blood work checked. Outpatient ammonia noted to be 99, glucose 317. Nursing Home Admissions Director confectionery cooker office told the patient to come to the hospital. Patient claims to be compliant with medications, with a daughter residing nearby assisting him. Denies chest pain, shortness of breath, abdominal pain, distention or bleeding. He just feels everything is going around in circles. He thinks he may be slurring his speech a bit. Appetite okay. Patient given lactulose in the emergency room. MEDICAL HISTORY: As above. SURGERIES: Hemorrhoidectomy, back surgery. HOME MEDICATIONS: Include Ventolin, furosemide, Vistaril, NovoLog, Lantus, Imdur ER, lactulose, losartan, Lopressor, mag oxide, Nitrostat, potassium chloride, Protonix, tamsulosin. ALLERGIES: LISINOPRIL, SIMVASTATIN, PRASHANT INHIBITOR. FAMILY HISTORY: Heart disease. PERSONAL AND SOCIAL HISTORY: Past tobacco abuse. No chronic intake of alcoholic beverages. 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 REVIEW OF SYSTEMS: As per HPI, all other ROS negative. PHYSICAL EXAMINATION: VITAL SIGNS: Blood pressure was noted to be 94/46, later 101/52, pulse rate 65, RR 18, 36.3, sats 98 on room air. GENERAL: Noted to be unkempt. Looks younger for stated age. No respiratory distress. SKIN: Pallor. HEENT: Pale palpebral conjunctivae. Dry mucosa. NECK: Short neck. LUNGS: Decreased breath sounds. HEART: Systolic murmur. ABDOMEN: Some distension, nontender. EXTREMITIES: Minimal LE edema. No tenderness. NEUROLOGIC: No gross focality. LABS: Hemoglobin was noted to be 10.3, hematocrit 32.6, white cell count 4.3, platelets 76. Sodium noted to be 140, potassium 3.8, chloride 107, CO2 25, BUN 30, creatinine 0.8, glucose 368. ammonia level was noted to be 106. CT of the head, no significant change from previous findings. Chest x-ray, suspected trace pleural effusions. UA, WBC 1-5. ASSESSMENT: 1. Dizziness Patient not encephalopathic; oriented during my examination. Multifactorial : hyperammonemia (recurrent admissions for for issue), cirrhosis secondary to NAFLD hyperglycemia, DM2, insulin requiring (recent outpx HgA1c shows good control at 6.5) ARF on CRI, mild clinical dehydration ? compliance issues/functional disability 2. coronary artery disease; status post stenting 3. chronic anemia secondary to CKD, hemoglobin at baseline 4. HTN, stable 5. History severe , patient told previously that he was not a surgical candidate 6. Past tobacco abuse PLAN: GMF Facilitate lactulose, Xifaxan. Follow ammonia. May need GI consult if without improvement, basal insulin, ISS BG goal 140-180, recheck hemoglobin A1c. Monitor creatinine response to IV fluids. Appropriate to hold home diuretics for now. PT, OT eval. DVT prophylaxis, SCDs RE thrombocytopenia. DNR. MTDD
[2017-04-24 06:58] LABS: MEAN CORPUSCULAR HGB CONC 31.6 g/dl (32-36)
[2017-04-24 07:26] LABS: BUN/CREATININE RATIO 9.3 (10-20); CALCIUM 9.4 mg/dl (8.5-10.1); CREATININE 1.2 mg/dl (0.60-1.40); POTASSIUM 3.5 mmol/L (3.5-5.1)
[2017-04-24 07:30] LABS: HEMATOCRIT 33.2 % (42-52); MEAN CELL VOLUME 98.5 fL (80-100); MEAN CORPUSCULAR HEMOGLOBIN 31.2 pg (25-34); RED BLOOD COUNT 3.37 M/uL (4.7-6.1); WHITE BLOOD COUNT 4.22 K/uL (4.8-10.8)
[2017-04-24 07:37] VITALS: BP 130/62; PULSE 57; TEMP 36.6; O2SAT 93
[2017-04-24] MEDS: INSULIN ASPART 100 UNITS/ML 3 ML PEN SC SCH ×4 (07:50→20:28)
[2017-04-24 07:56] LABS: PLATELET COUNT 68 K/uL (130-400)
[2017-04-24 07:57] LABS: BASO % 0.9 %; BASO ABS # 0.04 K/uL (0-0.2); COMPLETE YES; EOS % 5.9 %; LYMPH % 19.4 %; LYMPH ABS # 0.82 K/uL (1.2-3.4); MONO % 13.5 %; NEUT % 60.3 %; OVALOCYTES 1+; PLT ESTIMATE DECREASED
[2017-04-24] MEDS: TAMSULOSIN HCL 0.4 MG CAP PO SCH (08:20)
[2017-04-24] MEDS: RIFAXIMIN TAB 550 MG TAB PO SCH ×2 (08:20→20:27)
[2017-04-24] MEDS: PANTOprazole SOD 40 MG TAB PO SCH ×2 (08:20→20:26)
[2017-04-24] MEDS: ISOSORBIDE MONONITRATE 30 MG TABCR PO SCH (08:21)
[2017-04-24] MEDS: METOPROLOL TARTRATE 25 MG TAB PO SCH ×2 (08:21→20:26)
[2017-04-24] MEDS: FERROUS GLUCONATE 324 MG TAB PO SCH ×2 (08:21→20:26)
[2017-04-24] MEDS: ROSUVASTATIN CALCIUM 20 MG TAB PO SCH (08:21)
[2017-04-24] MEDS: LACTULOSE SYRUP 20 GM/30 ML UDC PO SCH ×3 (08:22→20:26)
[2017-04-24] MEDS: INSULIN GLARGINE SOLOSTAR 100 UNITS/ML 3 ML PEN SC SCH ×2 (08:26→20:32)
--- NOTE | 2017-04-24 11:44 | Progress Note ---
Medicine Progress Note Date & Time of Visit: Apr 24, 2017 at 11:20. Subjective Pt was seen and examined Sitting in chair comfortable with no distress Pt said that he feels fine denies any chest pain, palpitation, dizziness and SOB Objective Last 8 Hrs Date Time Temp Pulse Resp B/P (MAP) Pulse Ox O2 Delivery O2 Flow Rate FiO2 04/24/17 08:15 Room Air 04/24/17 07:37 36.6 57 18 130/62 (84) 93 Physical Exam: General- No acute distress Head- atraumatic Eyes- PERRL, EOMI ENT- oropharynx clear Neck- supple, no JVD Lungs- No wheezing, no crackles Heart- regular rhythm, +murmur Abdomen- normal bowel sounds, nontender, distended Extremities-no calf tenderness, +edema Neuro- alert, oriented x 3; PERRL, EOMI; no facial palsy Skin- warm & dry Laboratory Results: Last 24 Hours Test 04/23/17 17:45 04/23/17 18:37 04/23/17 20:10 04/23/17 20:17 White Blood Count 4.28 K/uL Red Blood Count 3.29 M/uL Hemoglobin 10.3 g/dL Hematocrit 32.6 % Mean Corpuscular Volume 99.1 fL Mean Corpuscular Hemoglobin 31.3 pg Mean Corpuscular Hemoglobin Concent 31.6 g/dl Platelet Count 76 K/uL Mean Platelet Volume 10.8 fL Neutrophils (%) (Auto) 62.0 % Lymphocytes (%) (Auto) 20.6 % Monocytes (%) (Auto) 12.6 % Eosinophils (%) (Auto) 3.7 % Basophils (%) (Auto) 0.9 % Neutrophils # (Auto) 2.65 K/uL Lymphocytes # (Auto) 0.88 K/uL Monocytes # (Auto) 0.54 K/uL Eosinophils # (Auto) 0.16 K/uL Basophils # (Auto) 0.04 K/uL RDW Standard Deviation 62.7 fL RDW Coefficient of Variation 17.5 % Immature Granulocyte % (Auto) 0.2 % Immature Granulocyte # (Auto) 0.01 K/uL Platelet Estimate DECREASED Large Platelets 1+ Polychromasia 1+ Anisocytosis PRESENT Tear Drop Cells 1+ Prothrombin Time 12.2 SECONDS Prothromb Time International Ratio 1.1 Activated Partial Thromboplast Time 28.8 SECONDS Partial Thromboplastin Ratio 1.1 Sodium Level 140 mmol/L Potassium Level 3.8 mmol/L Chloride Level 107 mmol/L Carbon Dioxide Level 25 mmol/L Anion Gap 8.0 mmol/L Blood Urea Nitrogen 13 mg/dl Creatinine 1.80 mg/dl Est Creatinine Clear Calc Drug Dose 32.0 ml/min Estimated GFR () 40.9 Estimated GFR (Non- 35.3 BUN/Creatinine Ratio 7.3 Random Glucose 368 mg/dl Calcium Level 8.8 mg/dl Magnesium Level 2.3 mg/dl Total Bilirubin 0.9 mg/dl Direct Bilirubin 0.3 mg/dl Aspartate Amino Transf (AST/SGOT) 69 U/L Alanine Aminotransferase (ALT/SGPT) 44 U/L Alkaline Phosphatase 292 U/L Total Creatine Kinase 99 U/L Creatine Kinase MB 1.6 ng/ml Creatine Kinase MB Ratio 1.6 Troponin I < 0.015 ng/ml Total Protein 6.2 gm/dl Albumin 3.1 gm/dl Lipase 478 U/L Beta-Hydroxybutyric Acid 0.69 mg/dL Thyroid Stimulating Hormone (TSH) 3.390 uIu/ml Ammonia 106.0 umol/L Urine Color YELLOW Urine Appearance CLOUDY Urine pH 6.0 Urine Specific [place] 1.025 Urine Protein NEG Urine Glucose (UA) 3+ Urine Ketones NEG Urine Occult Blood NEG Urine Nitrite NEG Urine Bilirubin NEG Urine Urobilinogen NEG Urine Leukocyte Esterase NEG Urine WBC (Auto) 1-5 /hpf Urine RBC (Auto) 0-4 /hpf Urine Hyaline Casts (Auto) 0 /lpf Urine Epithelial Cells (Auto) 0-5 /lpf Urine Bacteria (Auto) NEG Bedside Glucose 384 mg/dl Test 04/23/17 21:15 04/23/17 23:05 04/23/17 23:24 04/24/17 06:36 Bedside Glucose 367 mg/dl 254 mg/dl Lactic Acid Level 1.8 mmol/L White Blood Count 4.22 K/uL Red Blood Count 3.37 M/uL Hemoglobin 10.5 g/dL Hematocrit 33.2 % Mean Corpuscular Volume 98.5 fL Mean Corpuscular Hemoglobin 31.2 pg Mean Corpuscular Hemoglobin Concent 31.6 g/dl Platelet Count 68 K/uL Neutrophils (%) (Auto) 60.3 % Lymphocytes (%) (Auto) 19.4 % Monocytes (%) (Auto) 13.5 % Eosinophils (%) (Auto) 5.9 % Basophils (%) (Auto) 0.9 % Neutrophils # (Auto) 2.54 K/uL Lymphocytes # (Auto) 0.82 K/uL Monocytes # (Auto) 0.57 K/uL Eosinophils # (Auto) 0.25 K/uL Basophils # (Auto) 0.04 K/uL RDW Standard Deviation 62.5 fL RDW Coefficient of Variation 17.2 % Immature Granulocyte % (Auto) 0.0 % Immature Granulocyte # (Auto) 0.00 K/uL Platelet Estimate DECREASED Ovalocytes 1+ Sodium Level 144 mmol/L Potassium Level 3.5 mmol/L Chloride Level 111 mmol/L Carbon Dioxide Level 26 mmol/L Anion Gap 7.0 mmol/L Blood Urea Nitrogen 11 mg/dl Creatinine 1.20 mg/dl Est Creatinine Clear Calc Drug Dose 48.0 ml/min Estimated GFR () 66.7 Estimated GFR (Non- 57.6 BUN/Creatinine Ratio 9.3 Random Glucose 133 mg/dl Calcium Level 9.4 mg/dl Ammonia 80.0 umol/L Lipase 390 U/L Test 04/24/17 07:29 04/24/17 11:07 Bedside Glucose 139 mg/dl 216 mg/dl Date/Time Source Procedure Growth Status 04/23/17 20:10 Urine , Clean Catch Urine Culture Pending Received Assessment & Plan 76 yo male with PMH of KLEIN cirrhosis, CKD stage 3, DMII, CAD s/p stent, anemia was sent to the ER after abnormal lab result Elevated Ammonia level Hx of hepatic encephalopathy known KLEIN cirrhosis Ammonia level on admission 106, trending down to 80 today Pt said that he has been taking his lactulose TID. Continue lactulose and Rifaximin PO Lasix on hold due to GLENYS stable GLENYS on CKD Stage III: creatine on admission 1.8 baseline Cr is 1.2 cr at baseline now receive IVF Will D/C IVF avoid nephrotoxic agents Losartan and lasix on hold Continue monitor BMP DIZZINESS Etiology unknown CT head showed no acute abnormality check orthostatic fall precaution PT/OT DM Type II: insulin dependent Last HbA1c: 6.5 on 04/05/17 continue Lantus + correction scale insulin monitor BSG and adjust dose if necessary hold PO meds BSG AC HS AORTIC STENOSIS: moderate to severe on last TTE caution with fluids D/C IVF THROMBOCYTOPENIA Mostly related to KLEIN cirrhosis Platelet 68 No sign of active bleeding continue monitor cbc HYPERLIPIDEMIA: -continue statin CAD: s/p stent placement continue BB, Statin, Imdur, Losartan on hold Asymptomatic Acute anemia on Chronic Iron deficiency Anemia: baseline Hb in 11's continue Iron supplementation Hgb today 10.5 Stable BPH: On Flomax GERD: Continue PPI DVT Prophylaxis: SCDs for Guiac positive stool on last admission CODE STATUS DNR DISPOSITION Will discharge home tomorrow with home health services Current Inpatient Medications: Current Inpatient Medications Medications (Trade) Dose Ordered Sig/Suman Route Start Time Stop Time Status Last Admin Dose Admin Rifaximin (Xifaxan Tab) 550 mg BID PO 04/23/17 21:00 05/23/17 20:59 04/24/17 08:20 550 MG Insulin Glargine (Lantus Solostar Pen) 40 units BID SC 04/24/17 09:00 05/24/17 08:59 04/24/17 08:26 40 UNITS Insulin Aspart (novoLOG ASPART) SLIDING SCALE If C... ACHS SC 04/24/17 06:30 05/24/17 06:59 Glucose (Glucose 40% Gel) 15-30 GRAMS 15 GRAMS... UD PRN PO 04/23/17 20:15 05/23/17 20:14 Glucose (Glucose Chew Tab) 4-8 Tablets 4 Tabl... UD PRN PO 04/23/17 20:15 05/23/17 20:14 Dextrose (Dextrose 50% 50ML Syringe) 25-50ML OF 50% DW IV FOR... UD PRN IV 04/23/17 20:15 05/23/17 20:14 Glucagon (Glucagon Inj) 1 mg UD PRN SQ 04/23/17 20:15 05/23/17 20:14 Lactated Ringer's 1,000 ml @ 75 mls/hr [id number] ONCE IV 04/23/17 22:30 04/24/17 11:49 04/23/17 23:28 75 MLS/HR Acetaminophen (Tylenol Tab) 325 mg Q6H PRN PO 04/23/17 21:45 05/23/17 21:44 Ferrous Gluconate (Ferrous Gluconate Tab) 324 mg BID PO 04/24/17 09:00 05/24/17 08:59 04/24/17 08:21 324 MG Folic Acid (Folvite Tab) 1 mg DAILY PO 04/24/17 09:00 05/24/17 08:59 04/24/17 08:22 1 MG Isosorbide Mononitrate (Imdur Ext Rel Tab) 30 mg QAM PO 04/24/17 09:00 05/24/17 08:59 04/24/17 08:21 30 MG Lactulose (Chronulac Syrup) 20 gm TID PO 04/24/17 09:00 05/24/17 08:59 04/24/17 08:22 20 GM Metoprolol Tartrate (Lopressor Tab) 25 mg BID PO 04/24/17 09:00 05/24/17 08:59 04/24/17 08:21 25 MG Pantoprazole Sodium (Protonix Tab) 40 mg BID PO 04/24/17 09:00 05/24/17 08:59 04/24/17 08:20 40 MG Tamsulosin HCl (Flomax Cap) 0.4 mg DAILY PO 04/24/17 09:00 05/24/17 08:59 04/24/17 08:20 0.4 MG Rosuvastatin Calcium (Crestor Tab) 40 mg DAILY PO 04/24/17 09:00 05/24/17 08:59 04/24/17 08:21 40 MG Albuterol/ Ipratropium (Duoneb) 3 ml Q2H PRN INH 04/23/17 21:45 05/23/17 21:44
[2017-04-24 15:56] VITALS: O2SAT 93
[2017-04-24 16:04] VITALS: BP 106/62; PULSE 60; TEMP 36.7; O2SAT 95
[2017-04-24 20:32] VITALS: BP 134/72; PULSE 62
[2017-04-24 22:37] VITALS: BP 117/67; PULSE 60; TEMP 36.7; O2SAT 95
[2017-04-25 07:43] VITALS: BP 144/65; PULSE 55; TEMP 36.5; O2SAT 96
[2017-04-25 07:46] LABS: BUN/CREATININE RATIO 11.4 (10-20); CALCIUM 8.8 mg/dl (8.5-10.1); CREATININE 1.1 mg/dl (0.60-1.40); POTASSIUM 3.9 mmol/L (3.5-5.1)
[2017-04-25 07:52] LABS: HEMATOCRIT 33.3 % (42-52); MEAN CELL VOLUME 97.4 fL (80-100); MEAN CORPUSCULAR HEMOGLOBIN 31.3 pg (25-34); MEAN CORPUSCULAR HGB CONC 32.1 g/dl (32-36); MEAN PLATELET VOLUME 12.6 fL (7.4-10.4); PLATELET COUNT 79 K/uL (130-400); RED BLOOD COUNT 3.42 M/uL (4.7-6.1); WHITE BLOOD COUNT 4.41 K/uL (4.8-10.8)
[2017-04-25 07:55] LABS: BASO % 0.9 %; BASO ABS # 0.04 K/uL (0-0.2); COMPLETE YES; EOS % 5.7 %; IG% 0.2 %; LYMPH % 20.4 %; MONO % 11.3 %; NEUT % 61.5 %; PLT ESTIMATE DECREASED
[2017-04-25] MEDS: INSULIN ASPART 100 UNITS/ML 3 ML PEN SC SCH ×4 (07:58→21:17)
[2017-04-25] MEDS: LACTULOSE SYRUP 20 GM/30 ML UDC PO SCH ×2 (08:00→13:33)
[2017-04-25] MEDS: ROSUVASTATIN CALCIUM 20 MG TAB PO SCH (08:00)
[2017-04-25] MEDS: TAMSULOSIN HCL 0.4 MG CAP PO SCH (08:01)
[2017-04-25] MEDS: ISOSORBIDE MONONITRATE 30 MG TABCR PO SCH (08:01)
[2017-04-25] MEDS: FERROUS GLUCONATE 324 MG TAB PO SCH ×2 (08:01→21:13)
[2017-04-25] MEDS: PANTOprazole SOD 40 MG TAB PO SCH ×2 (08:02→21:14)
[2017-04-25] MEDS: METOPROLOL TARTRATE 25 MG TAB PO SCH ×2 (08:02→21:13)
[2017-04-25] MEDS: RIFAXIMIN TAB 550 MG TAB PO SCH ×2 (08:03→21:12)
[2017-04-25] MEDS: INSULIN GLARGINE SOLOSTAR 100 UNITS/ML 3 ML PEN SC SCH ×2 (08:05→21:18)
[2017-04-25 08:20] LABS: ESTIMATED AVERAGE GLUCOSE 143 mg/dl; HA1C FLAG Normal (Normal)
[2017-04-25 15:37] VITALS: BP 106/54; PULSE 54; TEMP 36.7; O2SAT 93
[2017-04-25 16:13] VITALS: BMI 34.4
--- NOTE | 2017-04-25 17:04 | Progress Note ---
Medicine Progress Note Date & Time of Visit: Apr 25, 2017 at 16:57. Subjective Pt was seen and examined Sitting in chair comfortable with no distress Pt said that he feels fine denies any chest pain, palpitation, dizziness and SOB Objective Last 8 Hrs Date Time Temp Pulse Resp B/P (MAP) Pulse Ox O2 Delivery O2 Flow Rate FiO2 04/25/17 15:37 36.7 54 20 106/54 (71) 93 Physical Exam: General- No acute distress Head- atraumatic Eyes- PERRL, EOMI ENT- oropharynx clear Neck- supple, no JVD Lungs- No wheezing, no crackles Heart- regular rhythm, +murmur Abdomen- normal bowel sounds, nontender, distended Extremities-no calf tenderness, +edema Neuro- alert, oriented x 3; PERRL, EOMI; no facial palsy Skin- warm & dry Laboratory Results: Last 24 Hours Test 04/24/17 20:07 04/25/17 07:05 04/25/17 07:33 04/25/17 11:22 Bedside Glucose 174 mg/dl 123 mg/dl 244 mg/dl White Blood Count 4.41 K/uL Red Blood Count 3.42 M/uL Hemoglobin 10.7 g/dL Hematocrit 33.3 % Mean Corpuscular Volume 97.4 fL Mean Corpuscular Hemoglobin 31.3 pg Mean Corpuscular Hemoglobin Concent 32.1 g/dl Platelet Count 79 K/uL Mean Platelet Volume 12.6 fL Neutrophils (%) (Auto) 61.5 % Lymphocytes (%) (Auto) 20.4 % Monocytes (%) (Auto) 11.3 % Eosinophils (%) (Auto) 5.7 % Basophils (%) (Auto) 0.9 % Neutrophils # (Auto) 2.71 K/uL Lymphocytes # (Auto) 0.90 K/uL Monocytes # (Auto) 0.50 K/uL Eosinophils # (Auto) 0.25 K/uL Basophils # (Auto) 0.04 K/uL RDW Standard Deviation 60.6 fL RDW Coefficient of Variation 16.8 % Immature Granulocyte % (Auto) 0.2 % Immature Granulocyte # (Auto) 0.01 K/uL Platelet Estimate DECREASED Sodium Level 141 mmol/L Potassium Level 3.9 mmol/L Chloride Level 111 mmol/L Carbon Dioxide Level 23 mmol/L Anion Gap 7.0 mmol/L Blood Urea Nitrogen 13 mg/dl Creatinine 1.10 mg/dl Est Creatinine Clear Calc Drug Dose 52.4 ml/min Estimated GFR () 74.1 Estimated GFR (Non- 64.0 BUN/Creatinine Ratio 11.4 Random Glucose 131 mg/dl Calcium Level 8.8 mg/dl Test 04/25/17 12:11 04/25/17 16:13 Ammonia 169.0 umol/L Bedside Glucose 244 mg/dl Assessment & Plan 76 yo male with PMH of KLEIN cirrhosis, CKD stage 3, DMII, CAD s/p stent, anemia was sent to the ER after abnormal lab result (ammonia) Elevated Ammonia level Hx of hepatic encephalopathy known KLEIN cirrhosis Ammonia level on admission 106, trending down to 80 and increase to 169 today Pt said that he has been taking his lactulose TID. Continue Rifaximin PO Was getting lactulose 20mg TID, will increase to 30mg TID Lasix was on hold due to GLENYS Will resume today Had 1 BM today so far Since level elevated today, will repeat tomorrow and if trending down OK to discharge will advise not to check ammonia level if pt is asymptomatic Clinically stable GLENYS on CKD Stage III: creatine on admission 1.8 baseline Cr is 1.2 cr at baseline now received IVF Resume lasix and losartan avoid nephrotoxic agents Continue monitor BMP DIZZINESS Etiology unknown CT head showed no acute abnormality check orthostatic fall precaution PT/OT DM Type II: insulin dependent Last HbA1c: 6.5 on 04/05/17 continue Lantus + correction scale insulin monitor BSG and adjust dose if necessary hold PO meds BSG AC HS AORTIC STENOSIS: moderate to severe on last TTE caution with fluids D/C IVF THROMBOCYTOPENIA Mostly related to KLEIN cirrhosis Platelet 79 No sign of active bleeding continue monitor cbc HYPERLIPIDEMIA: -continue statin CAD: s/p stent placement continue BB, Statin, Imdur, Losartan on hold Asymptomatic Acute anemia on Chronic Iron deficiency Anemia: baseline Hb in 's continue Iron supplementation Hgb today 10.7 Stable BPH: On Flomax GERD: Continue PPI DVT Prophylaxis: SCDs for Guiac positive stool on last admission CODE STATUS DNR DISPOSITION Will discharge home tomorrow with home health services Current Inpatient Medications: Current Inpatient Medications Medications (Trade) Dose Ordered Sig/Suman Route Start Time Stop Time Status Last Admin Dose Admin Rifaximin (Xifaxan Tab) 550 mg BID PO 04/23/17 21:00 05/23/17 20:59 04/25/17 08:03 550 MG Insulin Glargine (Lantus Solostar Pen) 40 units BID SC 04/24/17 09:00 05/24/17 08:59 04/25/17 08:05 40 UNITS Insulin Aspart (novoLOG ASPART) SLIDING SCALE If C... ACHS SC 04/24/17 06:30 05/24/17 06:59 04/25/17 11:54 3 UNITS Glucose (Glucose 40% Gel) 15-30 GRAMS 15 GRAMS... UD PRN PO 04/23/17 20:15 05/23/17 20:14 Glucose (Glucose Chew Tab) 4-8 Tablets 4 Tabl... UD PRN PO 04/23/17 20:15 05/23/17 20:14 Dextrose (Dextrose 50% 50ML Syringe) 25-50ML OF 50% DW IV FOR... UD PRN IV 04/23/17 20:15 05/23/17 20:14 Glucagon (Glucagon Inj) 1 mg UD PRN SQ 04/23/17 20:15 05/23/17 20:14 Acetaminophen (Tylenol Tab) 325 mg Q6H PRN PO 04/23/17 21:45 05/23/17 21:44 Ferrous Gluconate (Ferrous Gluconate Tab) 324 mg BID PO 04/24/17 09:00 05/24/17 08:59 04/25/17 08:01 324 MG Folic Acid (Folvite Tab) 1 mg DAILY PO 04/24/17 09:00 05/24/17 08:59 04/25/17 08:01 1 MG Isosorbide Mononitrate (Imdur Ext Rel Tab) 30 mg QAM PO 04/24/17 09:00 05/24/17 08:59 04/25/17 08:01 30 MG Lactulose (Chronulac Syrup) 20 gm TID PO 04/24/17 09:00 05/24/17 08:59 04/25/17 13:33 20 GM Metoprolol Tartrate (Lopressor Tab) 25 mg BID PO 04/24/17 09:00 05/24/17 08:59 04/24/17 20:26 25 MG Pantoprazole Sodium (Protonix Tab) 40 mg BID PO 04/24/17 09:00 05/24/17 08:59 04/25/17 08:02 40 MG Tamsulosin HCl (Flomax Cap) 0.4 mg DAILY PO 04/24/17 09:00 05/24/17 08:59 04/25/17 08:01 0.4 MG Rosuvastatin Calcium (Crestor Tab) 40 mg DAILY PO 04/24/17 09:00 05/24/17 08:59 04/25/17 08:00 40 MG Albuterol/ Ipratropium (Duoneb) 3 ml Q2H PRN INH 04/23/17 21:45 05/23/17 21:44
[2017-04-25] MEDS: LACTULOSE SYRUP 30 GM/45 ML UDP PO SCH (21:12)
[2017-04-26] VITALS: BP 120/64; PULSE 67; TEMP 36.8; O2SAT 97
[2017-04-26 07:39] VITALS: BP 145/72; PULSE 58; TEMP 36.8; O2SAT 98
[2017-04-26] MEDS: INSULIN ASPART 100 UNITS/ML 3 ML PEN SC SCH ×4 (07:49→21:03)
[2017-04-26] MEDS: METOPROLOL TARTRATE 25 MG TAB PO SCH ×2 (07:50→21:06)
[2017-04-26 07:51] LABS: HEMATOCRIT 32.4 % (42-52); MEAN CELL VOLUME 96.7 fL (80-100); MEAN CORPUSCULAR HEMOGLOBIN 30.7 pg (25-34); MEAN CORPUSCULAR HGB CONC 31.8 g/dl (32-36); RED BLOOD COUNT 3.35 M/uL (4.7-6.1); WHITE BLOOD COUNT 4.37 K/uL (4.8-10.8)
[2017-04-26] MEDS: LACTULOSE SYRUP 30 GM/45 ML UDP PO SCH ×3 (07:51→21:07)
[2017-04-26] MEDS: RIFAXIMIN TAB 550 MG TAB PO SCH ×2 (07:52→21:04)
[2017-04-26] MEDS: TAMSULOSIN HCL 0.4 MG CAP PO SCH (07:52)
[2017-04-26] MEDS: FERROUS GLUCONATE 324 MG TAB PO SCH ×2 (07:52→21:05)
[2017-04-26] MEDS: PANTOprazole SOD 40 MG TAB PO SCH ×2 (07:52→21:06)
[2017-04-26] MEDS: ISOSORBIDE MONONITRATE 30 MG TABCR PO SCH (07:52)
[2017-04-26] MEDS: ROSUVASTATIN CALCIUM 20 MG TAB PO SCH (07:52)
[2017-04-26] MEDS: INSULIN GLARGINE SOLOSTAR 100 UNITS/ML 3 ML PEN SC SCH ×2 (07:55→21:03)
[2017-04-26 08:00] LABS: MEAN PLATELET VOLUME 11.1 fL (7.4-10.4); PLATELET COUNT 71 K/uL (130-400)
--- NOTE | 2017-04-26 08:08 | Gastrointestinal Consultation ---
Gastrointestinal Consultation Date of Consultation: Apr 26, 2017 Attending Physician: Fanta Consulting Physician: Norma Reason for Consultation: elevated ammonia History of Present Illness Patient is a 76 year old male w/ PMH significant for KLEIN cirrhosis, T2DM, CAD, hyperlipidemia and others listed below who presented through the ED for evaluation of abnormal outpatient labs - GI was consulted for elevated ammonia. Pt last evaluated by MICHAEL Klein in the office without any change in his medications. Pt was seen and evaluated. Dr. Castro at bedside. Pt tells me he is feeling better than he did at discharge. He is denying confusing. No fever, chills, chest pain, SOB, abdominal pain, black/bloody stools. He is only having one BM daily. Decompensations Hepatic Encephalopathy: yes on lactulose and Xifaxan Ascites: none Varices: none Screenings EGD due 07/06 HCC due 06/05 Immunizations: Hep B due 07/05 Past Medical/Surgical History Medical Problems: (1) CHF (congestive heart failure) Status: Acute (2) Diffuse abdominal pain Status: Acute (3) GI bleed Status: Chronic (4) Hyperammonemia Status: Acute (5) Hyperammonemia Status: Acute (6) Hyperammonemia Status: Acute (7) Hypomagnesemia Status: Acute (8) Hypotension Status: Acute (9) Hypotension Status: Acute (10) Left sided chest pain Status: Acute (11) Lightheadedness Status: Acute (12) Rectal bleeding Status: Acute (13) Renal insufficiency Status: Acute (14) Renal insufficiency Status: Acute (15) Substernal precordial chest pain Status: Acute (16) Substernal precordial chest pain Status: Acute (17) Thrombocytopenia Status: Acute Past Medical History: KLEIN cirrhosis, T2DM, CAD, hyperlipidemia, osteoarthritis Past Surgical History: EGD, colonoscopy, lumbar hemilaminectomy, surgical removal of hemorrhoid Family History FHx: heart disease FATHER ( from [place] age 65) BROTHER ([place] in his 40s) Social History Smoking Status: Former Smoker Alcohol Use: none Drug Use: none Housing Status: lives with family Occupation Status: retired Allergies Coded Allergies: PRASHANT Inhibitors (Verified Allergy, Severe, ANGIOEDEMA from 10/10/11 ED adm, 04/23/17) Lisinopril (Verified Allergy, Severe, Edema - face, lips and tongue, ) Simvastatin (Verified Allergy, Unknown, RASH, SORE ALL OVER. 2013: Uses Crestor, 04/23/17) Current Medications Home Meds and Scripts Medications Dose Route/Sig Max Daily Dose Days Date Category Dose Instructions Folvite (Folic Acid) 1 Mg Tab 1 Mg PO DAILY 04/23/17 Reported Ventolin Hfa (Albuterol) 200 Puffs/43065 Mcg Aers 2 Puffs INH QID PRN 03/03/17 Reported Vistaril (Hydroxyzine Pamoate) 25 Mg Cap 25 Mg PO HS PRN 03/03/17 Reported Potassium Chloride Er (Potassium Chloride) 10 Meq Tab 20 Meq PO DAILY 03/03/17 Reported Novolog Flexpen (Insulin Aspart) 100 Units/Ml Inj 45 Units SC AC 03/03/17 Reported Jardiance (Empagliflozin) 10 Mg Tab 10 Mg PO QAM 07/03/16 Reported Ferrous Gluconate 324 Mg Tab 324 Mg PO BID 07/03/16 Reported Lantus Solostar (Insulin Glargine) 100 Unit/Ml Inj 45 Units SC AMPM 06/21/16 Reported Tamsulosin HCl 0.4 Mg Cap 0.4 Mg PO DAILY 05/30/16 Reported Pantoprazole Sodium (Pantoprazole) 40 Mg Tab 40 Mg PO BID 05/30/16 Reported Chronulac (Lactulose) 10 Gm/15 Ml Syrp 30 Ml PO TID 05/30/16 Reported TAKE 30 ML BY MOUTH 3 TIMES A DAY. HOLD ADDITIONAL DOSE FOR THAT DAY IF ALREADY HAD 3 BOWEL MOVEMENTS Rosuvastatin Calcium 40 Mg Tab 40 Mg PO DAILY 05/30/16 Reported Furosemide 40 Mg Tab 40 Mg PO DAILY 05/30/16 Reported Losartan Potassium 25 Mg Tab 25 Mg PO DAILY 05/30/16 Reported Lopressor (Metoprolol Tartrate) 25 Mg Tab 25 Mg PO BID 05/30/16 Reported Imdur Ext Rel (Isosorbide Mononitrate) 30 Mg Tabcr 30 Mg PO QAM 05/30/16 Reported Xifaxan (Rifaximin) 550 Mg Tab 550 Mg PO BID 01/07/16 Reported Mag-Ox (Magnesium Oxide) 400 Mg Tab 400 Mg PO BID 01/07/16 Reported Nitrostat (Nitroglycerin) 0.4 Mg Tab 0.4 Mg UT UD PRN 10/10/[address] ONE TABLET UNDER THE TONGUE EVERY 5 MINUTES FOR UP TO 3 DOSES IF NEEDED FOR CHEST PAIN Review of Systems Constitutional: No fever, No chills Respiratory: No cough, No shortness of breath Cardiac: No chest pain Abdomen: No pain, No nausea, No vomiting, No diarrhea, No constipation, No GI bleeding Physical Exam Date Time Temp Pulse Resp B/P (MAP) Pulse Ox O2 Delivery O2 Flow Rate FiO2 04/26/17 07:39 36.8 58 18 145/72 (96) 98 Room Air 04/26/17 00:15 Room Air 04/26/17 00:00 36.8 67 20 120/64 (82) 97 Room Air 04/25/17 16:30 Room Air 04/25/17 15:37 36.7 54 20 106/54 (71) 93 General Appearance: no apparent distress Eyes: PERRL ENT: hearing grossly normal Neck: supple Respiratory/Chest: lungs clear Cardiovascular: regular rate, rhythm Abdomen: normal bowel sounds, soft Neurologic/Psych: alert, normal mood/affect, + pertinent finding (oriented to person and place) Laboratory Results Last 24 Hours Test 04/25/17 11:22 04/25/17 12:11 04/25/17 16:13 04/25/17 20:40 Bedside Glucose 244 mg/dl 244 mg/dl 229 mg/dl Ammonia 169.0 umol/L Test 04/26/17 07:34 04/26/17 07:42 04/26/17 07:43 Bedside Glucose 88 mg/dl White Blood Count 4.37 K/uL Red Blood Count 3.35 M/uL Hemoglobin 10.3 g/dL Hematocrit 32.4 % Mean Corpuscular Volume 96.7 fL Mean Corpuscular Hemoglobin 30.7 pg Mean Corpuscular Hemoglobin Concent 31.8 g/dl Platelet Count 71 K/uL Mean Platelet Volume 11.1 fL RDW Standard Deviation 58.0 fL RDW Coefficient of Variation 16.4 % Impression Patient is a 76 year old male with KLEIN cirrhosis decompensated by hepatic encephalopathy. He was seen in the ED for abnormal labs and admitted for confusion. Pt ammonia was elevated to 170. He is on lactulose and xifaxan and is moving his bowels once daily. Plan - Increase lactulose to 30 QID - Xifaxan BID - continue present medications - consider additional work up for confusion per primary service I have seen , examined and agree with the plan as outlined by MICHAEL Lewis as above. -Improved mildly -HE work up, continue on Lactulose and Xifaxin, Follow blood cx and Urine cx
[2017-04-26 08:11] LABS: BASO % 0.7 %; BASO ABS # 0.03 K/uL (0-0.2); COMPLETE YES; IG% 0.2 %; LYMPH % 20.4 %; LYMPH ABS # 0.89 K/uL (1.2-3.4); MONO % 11.7 %
[2017-04-26 08:21] LABS: BUN/CREATININE RATIO 12.2 (10-20); CALCIUM 8.7 mg/dl (8.5-10.1); CREATININE 0.94 mg/dl (0.60-1.40); POTASSIUM 3.5 mmol/L (3.5-5.1)
--- NOTE | 2017-04-26 09:53 | Progress Note ---
Medicine Progress Note Date & Time of Visit: Apr 26, 2017 at 09:43. Subjective patient seen resting in bed, comfortable states he feels ok overall denies confusion, lethargy no other symptoms Objective Last 8 Hrs Date Time Temp Pulse Resp B/P (MAP) Pulse Ox O2 Delivery O2 Flow Rate FiO2 04/26/17 08:00 Room Air 04/26/17 07:39 36.8 58 18 145/72 (96) 98 Room Air Physical Exam: General- oriented x 2,not in distress Head- atraumatic Eyes- EOMI, anicteric ENT- oropharynx clear Neck- supple, no JVD, no adenopathy Lungs- clear breath sounds bilaterally, no rales/wheezes Heart- regular rhythm; no murmur, normal rate Abdomen- normal bowel sounds, soft, nontender Extremities- no pretibial edema, no calf tenderness; peripheral pulses intact Neuro- alert, oriented x 2, no other gross deficits Skin- warm & dry Laboratory Results: Last 24 Hours Test 04/25/17 11:22 04/25/17 12:11 04/25/17 16:13 04/25/17 20:40 Bedside Glucose 244 mg/dl 244 mg/dl 229 mg/dl Ammonia 169.0 umol/L Test 04/26/17 07:34 04/26/17 07:42 04/26/17 07:43 Bedside Glucose 88 mg/dl White Blood Count 4.37 K/uL Red Blood Count 3.35 M/uL Hemoglobin 10.3 g/dL Hematocrit 32.4 % Mean Corpuscular Volume 96.7 fL Mean Corpuscular Hemoglobin 30.7 pg Mean Corpuscular Hemoglobin Concent 31.8 g/dl Platelet Count 71 K/uL Mean Platelet Volume 11.1 fL Neutrophils (%) (Auto) 62.0 % Lymphocytes (%) (Auto) 20.4 % Monocytes (%) (Auto) 11.7 % Eosinophils (%) (Auto) 5.0 % Basophils (%) (Auto) 0.7 % Neutrophils # (Auto) 2.71 K/uL Lymphocytes # (Auto) 0.89 K/uL Monocytes # (Auto) 0.51 K/uL Eosinophils # (Auto) 0.22 K/uL Basophils # (Auto) 0.03 K/uL RDW Standard Deviation 58.0 fL RDW Coefficient of Variation 16.4 % Immature Granulocyte % (Auto) 0.2 % Immature Granulocyte # (Auto) 0.01 K/uL Sodium Level 142 mmol/L Potassium Level 3.5 mmol/L Chloride Level 111 mmol/L Carbon Dioxide Level 24 mmol/L Anion Gap 7.0 mmol/L Blood Urea Nitrogen 12 mg/dl Creatinine 0.94 mg/dl Est Creatinine Clear Calc Drug Dose 61.3 ml/min Estimated GFR () 89.6 Estimated GFR (Non- 77.3 BUN/Creatinine Ratio 12.2 Random Glucose 97 mg/dl Calcium Level 8.7 mg/dl Ammonia 86.0 umol/L Assessment & Plan 76 yo male with PMH of KLEIN cirrhosis, CKD stage 3, DMII, CAD s/p stent, anemia was sent to the ER after abnormal lab result (ammonia) Elevated Ammonia level Hx of hepatic encephalopathy known KLEIN cirrhosis Pt said that he has been taking his lactulose TID. -- lactulose increased to QID Rifaximin continued -- monitor ACUTE RENAL FAILURE, ON CKD Stage III: creatine on admission 1.8 baseline Cr is 1.2 cr at baseline now -- resumed Lasix 40mg po daily may need to change to q2d continue Losartan DIZZINESS CT head showed no acute abnormality check orthostatic: negative PT/OT: recommend return home DM Type II: insulin dependent Last HbA1c: 6.5 on 04/05/17 continue Lantus + correction scale insulin monitor BSG and adjust dose if necessary hold PO meds BSG AC HS AORTIC STENOSIS: moderate to severe on last TTE THROMBOCYTOPENIA Mostly related to KLEIN cirrhosis Platelet 79 No sign of active bleeding HYPERLIPIDEMIA: -continue statin CAD: s/p stent placement continue BB, Statin, Imdur, Losartan Asymptomatic Acute anemia on Chronic Iron deficiency Anemia: baseline Hb in 's continue Iron supplementation Hgb today 10.7 Stable BPH: On Flomax GERD: Continue PPI DVT Prophylaxis: SCDs for Guiac positive stool on last admission CODE STATUS DNR DISPOSITION pending anticipate d/c home when medically stable Current Inpatient Medications: Current Inpatient Medications Medications (Trade) Dose Ordered Sig/Suman Route Start Time Stop Time Status Last Admin Dose Admin Rifaximin (Xifaxan Tab) 550 mg BID PO 04/23/17 21:00 05/23/17 20:59 04/26/17 07:52 550 MG Insulin Glargine (Lantus Solostar Pen) 40 units BID SC 04/24/17 09:00 05/24/17 08:59 04/26/17 07:55 40 UNITS Insulin Aspart (novoLOG ASPART) SLIDING SCALE If C... ACHS SC 04/24/17 06:30 05/24/17 06:59 04/25/17 21:17 2 UNITS Glucose (Glucose 40% Gel) 15-30 GRAMS 15 GRAMS... UD PRN PO 04/23/17 20:15 05/23/17 20:14 Glucose (Glucose Chew Tab) 4-8 Tablets 4 Tabl... UD PRN PO 04/23/17 20:15 05/23/17 20:14 Dextrose (Dextrose 50% 50ML Syringe) 25-50ML OF 50% DW IV FOR... UD PRN IV 04/23/17 20:15 05/23/17 20:14 Glucagon (Glucagon Inj) 1 mg UD PRN SQ 04/23/17 20:15 05/23/17 20:14 Acetaminophen (Tylenol Tab) 325 mg Q6H PRN PO 04/23/17 21:45 05/23/17 21:44 Ferrous Gluconate (Ferrous Gluconate Tab) 324 mg BID PO 04/24/17 09:00 05/24/17 08:59 04/26/17 07:52 324 MG Folic Acid (Folvite Tab) 1 mg DAILY PO 04/24/17 09:00 05/24/17 08:59 04/26/17 07:52 1 MG Isosorbide Mononitrate (Imdur Ext Rel Tab) 30 mg QAM PO 04/24/17 09:00 05/24/17 08:59 04/26/17 07:52 30 MG Metoprolol Tartrate (Lopressor Tab) 25 mg BID PO 04/24/17 09:00 05/24/17 08:59 04/25/17 21:13 25 MG Pantoprazole Sodium (Protonix Tab) 40 mg BID PO 04/24/17 09:00 05/24/17 08:59 04/26/17 07:52 40 MG Tamsulosin HCl (Flomax Cap) 0.4 mg DAILY PO 04/24/17 09:00 05/24/17 08:59 04/26/17 07:52 0.4 MG Rosuvastatin Calcium (Crestor Tab) 40 mg DAILY PO 04/24/17 09:00 05/24/17 08:59 04/26/17 07:52 40 MG Albuterol/ Ipratropium (Duoneb) 3 ml Q2H PRN INH 04/23/17 21:45 05/23/17 21:44 Lactulose (Chronulac Syrup) 30 gm TID PO 04/25/17 21:00 05/24/17 08:59 04/26/17 07:51 30 GM
[2017-04-26 15:19] VITALS: BP 106/59; PULSE 60; TEMP 36.8; O2SAT 95
[2017-04-26] MEDS: MAGNESIUM OXIDE 400 MG TAB PO SCH (21:06)
[2017-04-26 23:18] VITALS: BP 149/75; PULSE 65; TEMP 36.8; O2SAT 97
[2017-04-27 07:06] VITALS: BP 115/73; PULSE 59; TEMP 36.9; O2SAT 97
[2017-04-27 08:06] LABS: HEMATOCRIT 34.2 % (42-52); MEAN CELL VOLUME 97.2 fL (80-100); MEAN CORPUSCULAR HEMOGLOBIN 30.1 pg (25-34); RED BLOOD COUNT 3.52 M/uL (4.7-6.1); WHITE BLOOD COUNT 4.37 K/uL (4.8-10.8)
[2017-04-27] MEDS: INSULIN ASPART 100 UNITS/ML 3 ML PEN SC SCH ×4 (08:31→21:00)
[2017-04-27] MEDS: LACTULOSE SYRUP 30 GM/45 ML UDP PO SCH ×4 (08:32→20:52)
[2017-04-27] MEDS: METOPROLOL TARTRATE 25 MG TAB PO SCH ×2 (08:35→20:53)
[2017-04-27] MEDS: LOSARTAN POTASSIUM 25 MG TAB PO SCH (08:37)
[2017-04-27] MEDS: TAMSULOSIN HCL 0.4 MG CAP PO SCH (08:37)
[2017-04-27] MEDS: ROSUVASTATIN CALCIUM 20 MG TAB PO SCH (08:37)
[2017-04-27] MEDS: FERROUS GLUCONATE 324 MG TAB PO SCH ×2 (08:37→20:53)
[2017-04-27] MEDS: ISOSORBIDE MONONITRATE 30 MG TABCR PO SCH (08:38)
[2017-04-27] MEDS: POTASSIUM CHLORIDE 20 MEQ TABCR PO SCH (08:38)
[2017-04-27] MEDS: PANTOprazole SOD 40 MG TAB PO SCH ×2 (08:39→20:53)
[2017-04-27] MEDS: RIFAXIMIN TAB 550 MG TAB PO SCH ×2 (08:39→20:54)
[2017-04-27] MEDS: FUROSEMIDE 40 MG TAB PO SCH (08:39)
[2017-04-27] MEDS: MAGNESIUM OXIDE 400 MG TAB PO SCH ×2 (08:39→20:54)
[2017-04-27 08:40] LABS: BUN/CREATININE RATIO 9.7 (10-20); CALCIUM 8.8 mg/dl (8.5-10.1); POTASSIUM 3.7 mmol/L (3.5-5.1)
[2017-04-27] MEDS: INSULIN GLARGINE SOLOSTAR 100 UNITS/ML 3 ML PEN SC SCH ×2 (08:41→21:01)
[2017-04-27 08:45] LABS: BASO % 0.7 %; BASO ABS # 0.03 K/uL (0-0.2); COMPLETE YES; EOS % 4.1 %; IG% 0.2 %; LYMPH % 19.5 %; LYMPH ABS # 0.85 K/uL (1.2-3.4); MEAN PLATELET VOLUME 11.7 fL (7.4-10.4); MONO % 14.2 %; NEUT % 61.3 %; PLATELET COUNT 81 K/uL (130-400); PLT ESTIMATE DECREASED
--- NOTE | 2017-04-27 10:42 | Gastroenterology Progress Note ---
Progress Note Date of Service: Apr 27, 2017 Subjective Pt evaluation today including: conversation w/ patient, physical exam, chart review, lab review Pt seen and evaluated this AM. No acute events overnight. He feels well. Lactulose increased to QID with Xifaxan BID. He is now having 2-3 BMs daily. No black or bloody stools. Still is not answering questions appropriately. Nursing staff notes that this may be his baseline - unable to determine as this is my first time meeting him. Review of Systems Constitutional: No fever, No chills Respiratory: No cough, No shortness of breath Cardiac: No chest pain Abdomen: No pain, No nausea, No vomiting, No diarrhea, No constipation, No GI bleeding Medications Current Inpatient Medications Medications (Trade) Dose Ordered Sig/Suman Route Start Time Stop Time Status Last Admin Dose Admin Rifaximin (Xifaxan Tab) 550 mg BID PO 04/23/17 21:00 05/23/17 20:59 04/27/17 08:39 550 MG Insulin Glargine (Lantus Solostar Pen) 40 units BID SC 04/24/17 09:00 05/24/17 08:59 04/27/17 08:41 40 UNITS Insulin Aspart (novoLOG ASPART) SLIDING SCALE If C... ACHS SC 04/24/17 06:30 05/24/17 06:59 04/26/17 21:03 2 UNITS Glucose (Glucose 40% Gel) 15-30 GRAMS 15 GRAMS... UD PRN PO 04/23/17 20:15 05/23/17 20:14 Glucose (Glucose Chew Tab) 4-8 Tablets 4 Tabl... UD PRN PO 04/23/17 20:15 05/23/17 20:14 Dextrose (Dextrose 50% 50ML Syringe) 25-50ML OF 50% DW IV FOR... UD PRN IV 04/23/17 20:15 05/23/17 20:14 Glucagon (Glucagon Inj) 1 mg UD PRN SQ 04/23/17 20:15 05/23/17 20:14 Acetaminophen (Tylenol Tab) 325 mg Q6H PRN PO 04/23/17 21:45 05/23/17 21:44 Ferrous Gluconate (Ferrous Gluconate Tab) 324 mg BID PO 04/24/17 09:00 05/24/17 08:59 04/27/17 08:37 324 MG Folic Acid (Folvite Tab) 1 mg DAILY PO 04/24/17 09:00 05/24/17 08:59 04/27/17 08:37 1 MG Isosorbide Mononitrate (Imdur Ext Rel Tab) 30 mg QAM PO 04/24/17 09:00 05/24/17 08:59 04/27/17 08:38 30 MG Metoprolol Tartrate (Lopressor Tab) 25 mg BID PO 04/24/17 09:00 05/24/17 08:59 04/26/17 21:06 25 MG Pantoprazole Sodium (Protonix Tab) 40 mg BID PO 04/24/17 09:00 05/24/17 08:59 04/27/17 08:39 40 MG Tamsulosin HCl (Flomax Cap) 0.4 mg DAILY PO 04/24/17 09:00 05/24/17 08:59 04/27/17 08:37 0.4 MG Rosuvastatin Calcium (Crestor Tab) 40 mg DAILY PO 04/24/17 09:00 05/24/17 08:59 04/27/17 08:37 40 MG Albuterol/ Ipratropium (Duoneb) 3 ml Q2H PRN INH 04/23/17 21:45 05/23/17 21:44 Lactulose (Chronulac Syrup) 30 gm TID PO 04/25/17 21:00 05/24/17 08:59 04/27/17 08:32 30 GM Furosemide (Lasix Tab) 40 mg DAILY PO 04/27/17 09:00 05/27/17 08:59 04/27/17 08:39 40 MG Losartan Potassium (coZAAR TAB) 25 mg DAILY PO 04/27/17 09:00 05/27/17 08:59 04/27/17 08:37 25 MG Magnesium Oxide (Mag-Ox Tab) 400 mg BID PO 04/26/17 21:00 05/26/17 20:59 04/27/17 08:39 400 MG Potassium Chloride (Klor-Con Tab) 20 meq DAILY PO 04/27/17 09:00 05/27/17 08:59 04/27/17 08:38 20 MEQ Objective Vital Signs Date Time Temp Pulse Resp B/P (MAP) Pulse Ox O2 Delivery O2 Flow Rate FiO2 04/27/17 08:00 Room Air 04/27/17 07:06 36.9 59 18 115/73 (87) 97 Room Air 04/27/17 00:56 Room Air 04/26/17 23:18 36.8 65 18 149/75 (99) 97 Room Air 04/26/17 16:10 Room Air 04/26/17 15:19 36.8 60 20 106/59 (75) 95 Physical Exam General Appearance: no apparent distress Eyes: PERRL ENT: hearing grossly normal Neck: supple Respiratory/Chest: lungs clear, normal breath sounds Cardiovascular: regular rate, rhythm Abdomen: normal bowel sounds, non tender, soft, no organomegaly Neurologic/Psych: alert, normal mood/affect, oriented x 3 Skin: normal color Laboratory Results Last 24 Hours Test 04/26/17 11:26 04/26/17 16:40 04/26/17 20:52 04/27/17 07:19 Bedside Glucose 266 mg/dl 213 mg/dl 225 mg/dl 119 mg/dl White Blood Count 4.37 K/uL Red Blood Count 3.52 M/uL Hemoglobin 10.6 g/dL Hematocrit 34.2 % Mean Corpuscular Volume 97.2 fL Mean Corpuscular Hemoglobin 30.1 pg Mean Corpuscular Hemoglobin Concent 31.0 g/dl Platelet Count 81 K/uL Mean Platelet Volume 11.7 fL Neutrophils (%) (Auto) 61.3 % Lymphocytes (%) (Auto) 19.5 % Monocytes (%) (Auto) 14.2 % Eosinophils (%) (Auto) 4.1 % Basophils (%) (Auto) 0.7 % Neutrophils # (Auto) 2.68 K/uL Lymphocytes # (Auto) 0.85 K/uL Monocytes # (Auto) 0.62 K/uL Eosinophils # (Auto) 0.18 K/uL Basophils # (Auto) 0.03 K/uL RDW Standard Deviation 58.4 fL RDW Coefficient of Variation 16.4 % Immature Granulocyte % (Auto) 0.2 % Immature Granulocyte # (Auto) 0.01 K/uL Platelet Estimate DECREASED Red Blood Cell Morphology Unremarkable Sodium Level 142 mmol/L Potassium Level 3.7 mmol/L Chloride Level 111 mmol/L Carbon Dioxide Level 25 mmol/L Anion Gap 6.0 mmol/L Blood Urea Nitrogen 10 mg/dl Creatinine 1.00 mg/dl Est Creatinine Clear Calc Drug Dose 57.6 ml/min Estimated GFR () 83.2 Estimated GFR (Non- 71.8 BUN/Creatinine Ratio 9.7 Random Glucose 114 mg/dl Calcium Level 8.8 mg/dl Assessment and Plan Patient is a 76 year old male with KLEIN cirrhosis decompensated by hepatic encephalopathy. He was seen in the ED for abnormal labs and admitted for confusion. Pt ammonia was elevated to 170. He is on lactulose and xifaxan and is moving his bowels once daily. Dosing increased to lactulose QID and now with 2-3 stools daily. Plan - lactulose to 30 QID - Xifaxan BID - continue present medications - consider additional work up for confusion per primary service (blood cultures , urine cultures) GI to sign off. Please reconsult with any changes. ATTESTATION: I have performed a history and physical examination of this patient and reviewed the electronic record. Specifically, on physical examination abdomen is not tender. I have discussed the case with MICHAEL Renee. The above note reflects my findings, conclusions, and recommendations. Benitez Hankins MD
--- NOTE | 2017-04-27 10:59 | Progress Note ---
Medicine Progress Note Date & Time of Visit: Apr 27, 2017 at 10:55. Subjective seen resting in bed, comfortable oriented x 3 answers questions appropriately had 2-3 BMs last night 1 today denies confusion no other symptoms Objective Last 8 Hrs Date Time Temp Pulse Resp B/P (MAP) Pulse Ox O2 Delivery O2 Flow Rate FiO2 04/27/17 08:00 Room Air 04/27/17 07:06 36.9 59 18 115/73 (87) 97 Room Air Physical Exam: General- oriented x 2,not in distress Eyes- anicteric Neck- no JVD Lungs- clear breath sounds bilaterally Heart- regular rhythm; no murmur, normal rate Abdomen- normal bowel sounds, soft, nontender Extremities- no pretibial edema, no calf tenderness Neuro- alert, oriented x 2, no other gross deficits Skin- warm & dry Laboratory Results: Last 24 Hours Test 04/26/17 11:26 04/26/17 16:40 04/26/17 20:52 04/27/17 07:19 Bedside Glucose 266 mg/dl 213 mg/dl 225 mg/dl 119 mg/dl White Blood Count 4.37 K/uL Red Blood Count 3.52 M/uL Hemoglobin 10.6 g/dL Hematocrit 34.2 % Mean Corpuscular Volume 97.2 fL Mean Corpuscular Hemoglobin 30.1 pg Mean Corpuscular Hemoglobin Concent 31.0 g/dl Platelet Count 81 K/uL Mean Platelet Volume 11.7 fL Neutrophils (%) (Auto) 61.3 % Lymphocytes (%) (Auto) 19.5 % Monocytes (%) (Auto) 14.2 % Eosinophils (%) (Auto) 4.1 % Basophils (%) (Auto) 0.7 % Neutrophils # (Auto) 2.68 K/uL Lymphocytes # (Auto) 0.85 K/uL Monocytes # (Auto) 0.62 K/uL Eosinophils # (Auto) 0.18 K/uL Basophils # (Auto) 0.03 K/uL RDW Standard Deviation 58.4 fL RDW Coefficient of Variation 16.4 % Immature Granulocyte % (Auto) 0.2 % Immature Granulocyte # (Auto) 0.01 K/uL Platelet Estimate DECREASED Red Blood Cell Morphology Unremarkable Sodium Level 142 mmol/L Potassium Level 3.7 mmol/L Chloride Level 111 mmol/L Carbon Dioxide Level 25 mmol/L Anion Gap 6.0 mmol/L Blood Urea Nitrogen 10 mg/dl Creatinine 1.00 mg/dl Est Creatinine Clear Calc Drug Dose 57.6 ml/min Estimated GFR () 83.2 Estimated GFR (Non- 71.8 BUN/Creatinine Ratio 9.7 Random Glucose 114 mg/dl Calcium Level 8.8 mg/dl Assessment & Plan 76 yo male with PMH of KLEIN cirrhosis, CKD stage 3, DMII, CAD s/p stent, anemia was sent to the ER after abnormal lab result (ammonia) Elevated Ammonia level Hx of hepatic encephalopathy known KLEIN cirrhosis Pt said that he has been taking his lactulose TID. -- lactulose increased to QID Rifaximin continued -- mental status continues to improve -- monitor ACUTE RENAL FAILURE, ON CKD Stage III: creatine on admission 1.8 baseline Cr is 1.2 cr at baseline now -- resumed Lasix 40mg po daily may need to change to q2d continue Losartan DIZZINESS CT head showed no acute abnormality check orthostatic: negative PT/OT: recommend return home DM Type II: insulin dependent Last HbA1c: 6.5 on 04/05/17 continue Lantus + correction scale insulin monitor BSG and adjust dose if necessary hold PO meds BSG AC HS AORTIC STENOSIS: moderate to severe on last TTE THROMBOCYTOPENIA Mostly related to KLEIN cirrhosis Platelet stable No sign of active bleeding HYPERLIPIDEMIA: -continue statin CAD: s/p stent placement continue BB, Statin, Imdur, Losartan Asymptomatic Acute anemia on Chronic Iron deficiency Anemia: baseline Hb in 11's continue Iron supplementation Hgb today 10.7 Stable BPH: On Flomax GERD: Continue PPI DVT Prophylaxis: SCDs for Guiac positive stool on last admission CODE STATUS DNR DISPOSITION pending anticipate d/c home when medically stable, anticipate tomorrow Current Inpatient Medications: Current Inpatient Medications Medications (Trade) Dose Ordered Sig/Suman Route Start Time Stop Time Status Last Admin Dose Admin Rifaximin (Xifaxan Tab) 550 mg BID PO 04/23/17 21:00 05/23/17 20:59 04/27/17 08:39 550 MG Insulin Glargine (Lantus Solostar Pen) 40 units BID SC 04/24/17 09:00 05/24/17 08:59 04/27/17 08:41 40 UNITS Insulin Aspart (novoLOG ASPART) SLIDING SCALE If C... ACHS SC 04/24/17 06:30 05/24/17 06:59 04/26/17 21:03 2 UNITS Glucose (Glucose 40% Gel) 15-30 GRAMS 15 GRAMS... UD PRN PO 04/23/17 20:15 05/23/17 20:14 Glucose (Glucose Chew Tab) 4-8 Tablets 4 Tabl... UD PRN PO 04/23/17 20:15 05/23/17 20:14 Dextrose (Dextrose 50% 50ML Syringe) 25-50ML OF 50% DW IV FOR... UD PRN IV 04/23/17 20:15 05/23/17 20:14 Glucagon (Glucagon Inj) 1 mg UD PRN SQ 04/23/17 20:15 05/23/17 20:14 Acetaminophen (Tylenol Tab) 325 mg Q6H PRN PO 04/23/17 21:45 05/23/17 21:44 Ferrous Gluconate (Ferrous Gluconate Tab) 324 mg BID PO 04/24/17 09:00 05/24/17 08:59 04/27/17 08:37 324 MG Folic Acid (Folvite Tab) 1 mg DAILY PO 04/24/17 09:00 05/24/17 08:59 04/27/17 08:37 1 MG Isosorbide Mononitrate (Imdur Ext Rel Tab) 30 mg QAM PO 04/24/17 09:00 05/24/17 08:59 04/27/17 08:38 30 MG Metoprolol Tartrate (Lopressor Tab) 25 mg BID PO 04/24/17 09:00 05/24/17 08:59 04/26/17 21:06 25 MG Pantoprazole Sodium (Protonix Tab) 40 mg BID PO 04/24/17 09:00 05/24/17 08:59 04/27/17 08:39 40 MG Tamsulosin HCl (Flomax Cap) 0.4 mg DAILY PO 04/24/17 09:00 05/24/17 08:59 04/27/17 08:37 0.4 MG Rosuvastatin Calcium (Crestor Tab) 40 mg DAILY PO 04/24/17 09:00 05/24/17 08:59 04/27/17 08:37 40 MG Albuterol/ Ipratropium (Duoneb) 3 ml Q2H PRN INH 04/23/17 21:45 05/23/17 21:44 Lactulose (Chronulac Syrup) 30 gm TID PO 04/25/17 21:00 05/24/17 08:59 04/27/17 08:32 30 GM Furosemide (Lasix Tab) 40 mg DAILY PO 04/27/17 09:00 05/27/17 08:59 04/27/17 08:39 40 MG Losartan Potassium (coZAAR TAB) 25 mg DAILY PO 04/27/17 09:00 05/27/17 08:59 04/27/17 08:37 25 MG Magnesium Oxide (Mag-Ox Tab) 400 mg BID PO 04/26/17 21:00 05/26/17 20:59 04/27/17 08:39 400 MG Potassium Chloride (Klor-Con Tab) 20 meq DAILY PO 04/27/17 09:00 05/27/17 08:59 04/27/17 08:38 20 MEQ
[2017-04-27 15:13] VITALS: BP 113/64; PULSE 64; TEMP 36.6; O2SAT 97
[2017-04-27 22:31] VITALS: BP 138/63; PULSE 69; TEMP 36.7; O2SAT 97
[2017-04-28 07:29] VITALS: BP 124/56; PULSE 58; TEMP 36.5; O2SAT 97
[2017-04-28 08:00] VITALS: O2SAT 97
[2017-04-28 08:02] LABS: HEMATOCRIT 33.1 % (42-52); MEAN CELL VOLUME 97.1 fL (80-100); MEAN CORPUSCULAR HEMOGLOBIN 31.7 pg (25-34); MEAN CORPUSCULAR HGB CONC 32.6 g/dl (32-36); RED BLOOD COUNT 3.41 M/uL (4.7-6.1); WHITE BLOOD COUNT 5.54 K/uL (4.8-10.8)
[2017-04-28 08:14] LABS: BASO % 0.9 %; BASO ABS # 0.05 K/uL (0-0.2); COMPLETE YES; EOS % 4.7 %; IG% 0.4 %; LYMPH ABS # 1.11 K/uL (1.2-3.4); MEAN PLATELET VOLUME 10.6 fL (7.4-10.4); MONO % 10.3 %; NEUT % 63.7 %; PLATELET COUNT 85 K/uL (130-400)
[2017-04-28] MEDS: POTASSIUM CHLORIDE 20 MEQ TABCR PO SCH (08:27)
[2017-04-28] MEDS: RIFAXIMIN TAB 550 MG TAB PO SCH (08:27)
[2017-04-28] MEDS: ISOSORBIDE MONONITRATE 30 MG TABCR PO SCH (08:27)
[2017-04-28] MEDS: ROSUVASTATIN CALCIUM 20 MG TAB PO SCH (08:28)
[2017-04-28] MEDS: FERROUS GLUCONATE 324 MG TAB PO SCH (08:28)
[2017-04-28] MEDS: LOSARTAN POTASSIUM 25 MG TAB PO SCH (08:28)
[2017-04-28] MEDS: MAGNESIUM OXIDE 400 MG TAB PO SCH (08:29)
[2017-04-28] MEDS: FUROSEMIDE 40 MG TAB PO SCH (08:29)
[2017-04-28] MEDS: TAMSULOSIN HCL 0.4 MG CAP PO SCH (08:29)
[2017-04-28] MEDS: PANTOprazole SOD 40 MG TAB PO SCH (08:29)
[2017-04-28 08:30] LABS: BUN/CREATININE RATIO 10.9 (10-20); CREATININE 1.1 mg/dl (0.60-1.40); POTASSIUM 3.7 mmol/L (3.5-5.1)
[2017-04-28] MEDS: INSULIN ASPART 100 UNITS/ML 3 ML PEN SC SCH ×3 (08:30→17:25)
[2017-04-28] MEDS: METOPROLOL TARTRATE 25 MG TAB PO SCH (08:30)
[2017-04-28] MEDS: LACTULOSE SYRUP 30 GM/45 ML UDP PO SCH ×3 (08:31→16:33)
[2017-04-28] MEDS: INSULIN GLARGINE SOLOSTAR 100 UNITS/ML 3 ML PEN SC SCH (08:34)
[2017-04-28 14:54] VITALS: Ht 157.5 cm; Wt 85.3 kg
[2017-04-28 15:27] VITALS: BP 124/61; PULSE 69; TEMP 36.5; O2SAT 95
--- NOTE | 2017-04-28 15:51 | Progress Note ---
Medicine Progress Note Date & Time of Visit: Apr 28, 2017 at 15:32. Subjective patient seen resting in bed, comfortable states he feels fine has had 2 bms so far denies confusion no other symptoms states he is ready for discharge today Objective Last 8 Hrs Date Time Temp Pulse Resp B/P (MAP) Pulse Ox O2 Delivery O2 Flow Rate FiO2 04/28/17 15:27 36.5 69 18 124/61 (82) 95 Room Air 04/28/17 08:00 97 Room Air Physical Exam: General- oriented x 2,not in distress Eyes- anicteric Neck- no JVD Lungs- clear breath sounds bilaterally, no rales/wheezes Heart- regular rhythm; no murmur, normal rate Abdomen- normal bowel sounds, soft, nontender Extremities- no pretibial edema, no calf tenderness Neuro- alert, oriented x 2, no other gross deficits Skin- warm & dry Laboratory Results: Last 24 Hours Test 04/27/17 16:09 04/27/17 18:38 04/27/17 20:19 04/28/17 07:34 Bedside Glucose 318 mg/dl 320 mg/dl 255 mg/dl White Blood Count 5.54 K/uL Red Blood Count 3.41 M/uL Hemoglobin 10.8 g/dL Hematocrit 33.1 % Mean Corpuscular Volume 97.1 fL Mean Corpuscular Hemoglobin 31.7 pg Mean Corpuscular Hemoglobin Concent 32.6 g/dl Platelet Count 85 K/uL Mean Platelet Volume 10.6 fL Neutrophils (%) (Auto) 63.7 % Lymphocytes (%) (Auto) 20.0 % Monocytes (%) (Auto) 10.3 % Eosinophils (%) (Auto) 4.7 % Basophils (%) (Auto) 0.9 % Neutrophils # (Auto) 3.53 K/uL Lymphocytes # (Auto) 1.11 K/uL Monocytes # (Auto) 0.57 K/uL Eosinophils # (Auto) 0.26 K/uL Basophils # (Auto) 0.05 K/uL RDW Standard Deviation 58.5 fL RDW Coefficient of Variation 16.5 % Immature Granulocyte % (Auto) 0.4 % Immature Granulocyte # (Auto) 0.02 K/uL Sodium Level 140 mmol/L Potassium Level 3.7 mmol/L Chloride Level 109 mmol/L Carbon Dioxide Level 25 mmol/L Anion Gap 6.0 mmol/L Blood Urea Nitrogen 12 mg/dl Creatinine 1.10 mg/dl Est Creatinine Clear Calc Drug Dose 52.4 ml/min Estimated GFR () 74.1 Estimated GFR (Non- 64.0 BUN/Creatinine Ratio 10.9 Random Glucose 138 mg/dl Calcium Level 9.0 mg/dl Test 04/28/17 07:36 04/28/17 11:18 Bedside Glucose 132 mg/dl 252 mg/dl Assessment & Plan 76 yo male with PMH of KLEIN cirrhosis, CKD stage 3, DMII, CAD s/p stent, anemia was sent to the ER after abnormal lab result (ammonia) Elevated Ammonia level Hx of hepatic encephalopathy known KLEIN cirrhosis Pt said that he has been taking his lactulose TID. -- lactulose increased to TID Rifaximin continued -- having at least 2 BMs/day per patient -- mental status continues to improve -- discharge on Lactulose TID -- ff up with PCP in 3-5 days ACUTE RENAL FAILURE, ON CKD Stage III: creatine on admission 1.8 baseline Cr is 1.2 held Lasix, Losartan cre back to baseline -- resumed Lasix 40mg po daily continue Losartan -- monitor crea as outpatient DIZZINESS, Resolved CT head showed no acute abnormality check orthostatic: negative PT/OT: recommend return home DM Type II: insulin dependent Last HbA1c: 6.5 on 04/05/17 -- continue usual regimen AORTIC STENOSIS: moderate to severe on last TTE THROMBOCYTOPENIA Mostly related to KLEIN cirrhosis Platelet stable No sign of active bleeding HYPERLIPIDEMIA: -continue statin CAD: s/p stent placement continue BB, Statin, Imdur, Losartan Asymptomatic Acute anemia on Chronic Iron deficiency Anemia: baseline Hb in 11's continue Iron supplementation Hgb stable BPH: On Flomax GERD: Continue PPI DVT Prophylaxis: SCDs for Guiac positive stool on last admission CODE STATUS DNR DISPOSITION d/c home ff up with PCP in 3-5 days Current Inpatient Medications: Current Inpatient Medications Medications (Trade) Dose Ordered Sig/Suman Route Start Time Stop Time Status Last Admin Dose Admin Rifaximin (Xifaxan Tab) 550 mg BID PO 04/23/17 21:00 05/23/17 20:59 04/28/17 08:27 550 MG Insulin Glargine (Lantus Solostar Pen) 40 units BID SC 04/24/17 09:00 05/24/17 08:59 04/28/17 08:34 40 UNITS Insulin Aspart (novoLOG ASPART) SLIDING SCALE If C... ACHS SC 04/24/17 06:30 05/24/17 06:59 04/28/17 12:47 3 UNITS Glucose (Glucose 40% Gel) 15-30 GRAMS 15 GRAMS... UD PRN PO 04/23/17 20:15 05/23/17 20:14 Glucose (Glucose Chew Tab) 4-8 Tablets 4 Tabl... UD PRN PO 04/23/17 20:15 05/23/17 20:14 Dextrose (Dextrose 50% 50ML Syringe) 25-50ML OF 50% DW IV FOR... UD PRN IV 04/23/17 20:15 05/23/17 20:14 Glucagon (Glucagon Inj) 1 mg UD PRN SQ 04/23/17 20:15 05/23/17 20:14 Acetaminophen (Tylenol Tab) 325 mg Q6H PRN PO 04/23/17 21:45 05/23/17 21:44 Ferrous Gluconate (Ferrous Gluconate Tab) 324 mg BID PO 04/24/17 09:00 05/24/17 08:59 04/28/17 08:28 324 MG Folic Acid (Folvite Tab) 1 mg DAILY PO 04/24/17 09:00 05/24/17 08:59 04/28/17 08:28 1 MG Isosorbide Mononitrate (Imdur Ext Rel Tab) 30 mg QAM PO 04/24/17 09:00 05/24/17 08:59 04/28/17 08:27 30 MG Metoprolol Tartrate (Lopressor Tab) 25 mg BID PO 04/24/17 09:00 05/24/17 08:59 04/27/17 20:53 25 MG Pantoprazole Sodium (Protonix Tab) 40 mg BID PO 04/24/17 09:00 05/24/17 08:59 04/28/17 08:29 40 MG Tamsulosin HCl (Flomax Cap) 0.4 mg DAILY PO 04/24/17 09:00 05/24/17 08:59 04/28/17 08:29 0.4 MG Rosuvastatin Calcium (Crestor Tab) 40 mg DAILY PO 04/24/17 09:00 05/24/17 08:59 04/28/17 08:28 40 MG Albuterol/ Ipratropium (Duoneb) 3 ml Q2H PRN INH 04/23/17 21:45 05/23/17 21:44 Furosemide (Lasix Tab) 40 mg DAILY PO 04/27/17 09:00 05/27/17 08:59 04/28/17 08:29 40 MG Losartan Potassium (coZAAR TAB) 25 mg DAILY PO 04/27/17 09:00 05/27/17 08:59 04/28/17 08:28 25 MG Magnesium Oxide (Mag-Ox Tab) 400 mg BID PO 04/26/17 21:00 05/26/17 20:59 04/28/17 08:29 400 MG Potassium Chloride (Klor-Con Tab) 20 meq DAILY PO 04/27/17 09:00 05/27/17 08:59 04/28/17 08:27 20 MEQ Lactulose (Chronulac Syrup) 30 gm QID PO 04/27/17 13:00 05/24/17 08:59 04/28/17 12:44 30 GM
[2017-04-28] MEDS ORDERED: LCTL45 PO (15:54)
--- NOTE | 2017-04-28 16:02 | Discharge Instructions ---
Discharge Instructions Date of Service Apr 28, 2017. Admission Reason for Admission: Hepatic Encephalopathy Discharge Discharge Diagnosis / Problem: HEPATIC ENCEPHALOPATHY Discharge Goals Goal(s): Diagnostic testing, Therapeutic intervention Activity Recommendations Activity Limitations: as noted below (INCREASE ACTIVITY TOLERATED) Exercise/Sports Limitations: until after follow-up appointment Driving or Machine Use: NO DRIVING . Instructions / Follow-Up Instructions / Follow-Up PLEASE REVIEW YOUR NEW MEDICATION LIST AND FOLLOW INSTRUCTIONS CAREFULLY. IF YOU ALREADY HAVE 3 BOWEL MOVEMENTS, HOLD THE NEXT DOSES OF LACTULOSE FOR THAT DAY, AND RESUME THE FOLLOWING DAY. CALL PRIMARY CARE PHYSICIAN OR RETURN TO ER IMMEDIATELY IF WITH RECURRENCE OF SYMPTOMS, DROWSINESS, CONFUSION. PLEASE FOLLOW UP WITH DR. BIRCH ON TUESDAY MAY 02, 2017 AT 2:45PM. FOLLOW UP WITH FURNACE ERECTOR SCHEDULED. Current Hospital Diet Patient's current hospital diet: Diabetes Type 2 Diet, Low Sodium Diet (2gm Na) Discharge Diet Recommended Diet: AHA Diet (Heart Healthy), Diabetes Type 2 Diet Pending Studies Studies pending at discharge: no Laboratory Results Hemoglobin A1c Test 04/23/17 17:45 Range/Units Estimated Average Glucose 143 mg/dl Hemoglobin A1c 6.6 H 4.5-5.6 % Medical Emergencies . Who to Call and When: Medical Emergencies: If at any time you feel your situation is an emergency, please call 911 immediately. . Non-Emergent Contact Non-Emergency issues call your: Primary Care Provider, Reinsurance Claims Analyst Call Non-Emergent contact if: you have a fever, you have any medication questions . . "Provider Documentation" section prepared by Ravinder Castro. . VTE Core Measure Inpt VTE Proph given/why not?: SCD's
--- NOTE | 2017-04-28 16:09 | Discharge Summary ---
Discharge Summary Date of Service Apr 28, 2017. Discharge Summary Admission Date: Apr 23, 2017 at 21:15 Discharge Date: Apr 28, 2017 Discharge Disposition: Home with services Principal Diagnosis: Elevated Ammonia level Secondary Diagnoses/Problems: Please refer to hospital course below. Procedures: CT HEAD WITHOUT CONTRAST (CT) CLINICAL HISTORY: Weakness, lightheadedness. COMPARISON STUDY: 03/27/2017 TECHNIQUE: Axial CT of the brain is performed from the vertex to the skull base. IV contrast was not administered for this examination. A dose lowering technique was utilized adhering to the principles of ALARA. CT DOSE: 601.98 mGy.cm FINDINGS: No intra or extra-axial mass lesions are visualized. There is no CT evidence of acute cortical infarction. There is no evidence of midline shift. There is no acute hemorrhage. No calvarial fractures are visualized. There are minimal white matter hypodensities likely on a small vessel basis. There is no evidence of pathologic ventricular dilatation. There is no evidence of acute sinusitis IMPRESSION: No significant change from the preceding study. No acute intracranial findings. CHEST ONE VIEW PORTABLE CLINICAL HISTORY: Weakness COMPARISON STUDY: 03/30/2017 FINDINGS: The heart is mildly enlarged. There is no failure. There is no focal pulmonary consolidation. There is suspected trace pleural effusions. IMPRESSION: Suspected trace pleural effusions. No evidence of focal pulmonary consolidation. Consultations: Customer Specialist Pending Studies/Follow-Up: Please refer to hospital course below. Medication Reconciliation New Medications: Lactulose (Lactulose) 30 Gm/45 Ml Syrp 30 GM PO QID for 30 Days, #5400 ML 1 Refill hold next dose if already had 2-3 bowel movement/day; resume the following day Continued Medications: Albuterol Hfa (Ventolin Hfa) 200 Puffs/13259 Mcg Aers 2 PUFFS INH QID PRN for Cough Empagliflozin (Jardiance) 10 Mg Tab 10 MG PO QAM Ferrous Gluconate (Ferrous Gluconate) 324 Mg Tab 324 MG PO BID Folic Acid (Folvite) 1 Mg Tab 1 MG PO DAILY Furosemide (Furosemide) 40 Mg Tab 40 MG PO DAILY Insulin Aspart (Novolog Flexpen) 100 Units/Ml Inj 45 UNITS SC AC Insulin Glargine (Lantus Solostar) 100 Unit/Ml Inj 45 UNITS SC AMPM Isosorbide Mononitrate Ext Rel (Imdur Ext Rel) 30 Mg Tabcr 30 MG PO QAM Losartan Potassium (Losartan Potassium) 25 Mg Tab 25 MG PO DAILY Magnesium Oxide (Mag-Ox) 400 Mg Tab 400 MG PO BID Metoprolol Tartrate (Lopressor) 25 Mg Tab 25 MG PO BID Nitroglycerin (Nitrostat) 0.4 Mg Tab 0.4 MG UT UD PRN for Chest Pain PLACE ONE TABLET UNDER THE TONGUE EVERY 5 MINUTES FOR UP TO 3 DOSES IF NEEDED FOR CHEST PAIN Pantoprazole (Pantoprazole Sodium) 40 Mg Tab 40 MG PO BID Potassium Chloride (Potassium Chloride Er) 10 Meq Tab 20 MEQ PO DAILY Rifaximin (Xifaxan) 550 Mg Tab 550 MG PO BID Rosuvastatin Calcium (Rosuvastatin Calcium) 40 Mg Tab 40 MG PO DAILY Tamsulosin HCl (Tamsulosin HCl) 0.4 Mg Cap 0.4 MG PO DAILY Discontinued Medications: Hydroxyzine Pamoate (Vistaril) 25 Mg Cap 25 MG PO HS PRN for Anxiety Lactulose (Chronulac) 10 Gm/15 Ml Syrp 30 ML PO TID TAKE 30 ML BY MOUTH 3 TIMES A DAY. HOLD ADDITIONAL DOSE FOR THAT DAY IF ALREADY HAD 3 BOWEL MOVEMENTS Admission Information HPI (per Admitting provider): CHIEF COMPLAINT: Abnormal blood work. HISTORY OF PRESENT ILLNESS: History obtained from the patient and records. Medical history significant for cirrhosis secondary to nonalcoholic fatty liver disease, DM2, insulin requiring, CAD sp stenting, HTN, severe aortic stenosis, chronic renal insufficiency (baseline creatinine of 1.3- 1.7), Chronic anemia, baseline hemoglobin of 8-9, past tobacco abuse. Subsequent confinements in the last 2 months for hepatic encephalopathy. Recent confinement in March of 2017 for hepatic encephalopathy, possible hepatorenal syndrome. [place] [facility] [place] evaluation and treatment options for anemia in the setting advanced cirrhosis and hepatic encephalopathy. Impression was multifactorial anemia. Blood work checked. Outpatient ammonia noted to be 99, glucose 317. 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 Patient claims to be compliant with medications, with a daughter residing nearby assisting him. Denies chest pain, shortness of breath, abdominal pain, distention or bleeding. He just feels everything is going around in circles. He thinks he may be slurring his speech a bit. Appetite okay. Patient given lactulose in the emergency room. Physical Exam (per Admitting): VITAL SIGNS: Blood pressure was noted to be 94/46, later 101/52, pulse rate 65, RR 18, 36.3, sats 98 on room air. GENERAL: Noted to be unkempt. Looks younger for stated age. No respiratory distress. SKIN: Pallor. HEENT: Pale palpebral conjunctivae. Dry mucosa. NECK: Short neck. LUNGS: Decreased breath sounds. HEART: Systolic murmur. ABDOMEN: Some distension, nontender. EXTREMITIES: Minimal LE edema. No tenderness. NEUROLOGIC: No gross focality. Hospital Course 76 yo male with PMH of KLEIN cirrhosis, CKD stage 3, DMII, CAD s/p stent, anemia was sent to the ER after abnormal lab result (ammonia) Elevated Ammonia level Hx of hepatic encephalopathy known KLEIN cirrhosis Pt said that he has been taking his lactulose TID. -- GI consulted- Dr. Hankins -- lactulose increased to TID Rifaximin continued -- having at least 2 BMs/day per patient ammonia improved from 130s to 80s -- mental status back to baseline -- discharge on Lactulose QID -- ff up with PCP in 1 week ACUTE RENAL FAILURE, ON CKD Stage III: creatine on admission 1.8 baseline Cr is 1.2 held Lasix, Losartan crea back to baseline -- resumed Lasix and Losartan -- monitor crea as outpatient DIZZINESS, Resolved CT head showed no acute abnormality check orthostatic: negative PT/OT: recommend return home DM Type II: insulin dependent Last HbA1c: 6.5 on 04/05/17 -- continue usual regimen AORTIC STENOSIS: moderate to severe on last TTE THROMBOCYTOPENIA Mostly related to KLEIN cirrhosis Platelet stable No sign of active bleeding HYPERLIPIDEMIA: -continue statin CAD: s/p stent placement continue BB, Statin, Imdur, Losartan Asymptomatic Acute anemia on Chronic Iron deficiency Anemia: baseline Hb in 11's continue Iron supplementation Hgb stable BPH: On Flomax GERD: Continue PPI DISPOSITION d/c home ff up with PCP in 1 week ff up with GI as scheduled Total time spent on discharge = 30 minutes This includes examination of the patient, discharge planning, medication reconciliation, and communication with other providers. Discharge Instructions Discharge Instructions Date of Service Apr 28, 2017. Admission Reason for Admission: Hepatic Encephalopathy Discharge Discharge Diagnosis / Problem: HEPATIC ENCEPHALOPATHY Discharge Goals Goal(s): Diagnostic testing, Therapeutic intervention Activity Recommendations Activity Limitations: as noted below (INCREASE ACTIVITY TOLERATED) Exercise/Sports Limitations: until after follow-up appointment Driving or Machine Use: NO DRIVING . Instructions / Follow-Up Instructions / Follow-Up PLEASE REVIEW YOUR NEW MEDICATION LIST AND FOLLOW INSTRUCTIONS CAREFULLY. IF YOU ALREADY HAVE 3 BOWEL MOVEMENTS, HOLD THE NEXT DOSES OF LACTULOSE FOR THAT DAY, AND RESUME THE FOLLOWING DAY. CALL PRIMARY CARE PHYSICIAN OR RETURN TO ER IMMEDIATELY IF WITH RECURRENCE OF SYMPTOMS, DROWSINESS, CONFUSION. PLEASE FOLLOW UP WITH DR. BIRCH ON TUESDAY MAY 02, 2017 AT 2:45PM. FOLLOW UP WITH PC SUPPORT SPECIALIST SCHEDULED. Current Hospital Diet Patient's current hospital diet: Diabetes Type 2 Diet, Low Sodium Diet (2gm Na) Discharge Diet Recommended Diet: AHA Diet (Heart Healthy), Diabetes Type 2 Diet Pending Studies Studies pending at discharge: no Laboratory Results Hemoglobin A1c Test 04/23/17 17:45 Range/Units Estimated Average Glucose 143 mg/dl Hemoglobin A1c 6.6 H 4.5-5.6 % Medical Emergencies . Who to Call and When: Medical Emergencies: If at any time you feel your situation is an emergency, please call 911 immediately. . Non-Emergent Contact Non-Emergency issues call your: Primary Care Provider, Customer Specialist Call Non-Emergent contact if: you have a fever, you have any medication questions . . "Provider Documentation" section prepared by Ravinder Castro. . VTE Core Measure Inpt VTE Proph given/why not?: SCD's
[2017-04-28 16:40] VITALS: BP 124/61; PULSE 69; TEMP 36.5; O2SAT 95
--- NOTE | 2017-04-30 10:23 | EDITING REQUIRED CODING QUERY ---
CODING QUERY To promote full compliance with coding requirements relating to patient care, provider participation is requested in all cases of dry kiln feeder uncertainty. Please assist us with the question(s) below: Coding Question(s): Dr. Castro, Hepatic encephalopathy is documented throughout the patient's chart and on the discharge instructions, but the principal diagnosis is noted to be elevated ammonia level and hepatic encephalopathy is not noted on the discharge summary. Please clarify if hepatic encephalopathy was: ( ) present and treated during this admission ( ) ruled out ( X) other, please explain Patient did not have hepatic encephalopathy based upon the ER Physician notes, Admitting hospitalist notes and Dr Morocho's notes. Thanks. Physician's Response(s): Thank you for your time, KENNY Miller, HEAD GAUGE UNIT OPERATOR
== END 2017-04-28 17:35 | disposition home health service (06) | DRG 642 ==
LOC: C.EDB 17:29 → C.MS2W 21:15 → ENRESERV 21:25
PROVIDERS: ADMIT Hospitalist; ATTEND Internal Medicine
DX: E72.20 Disorder of urea cycle metabolism, unspecified (principal); K76.7 Hepatorenal syndrome; N17.9 Acute kidney failure, unspecified; R42 Dizziness and giddiness; K74.69 Other cirrhosis of liver; K76.0 Fatty (change of) liver, not elsewhere classified; I12.9 Hypertensive chronic kidney disease with stage 1 through stage 4 chronic kidney disease, or unspecified chronic kidney disease; N18.3 Chronic kidney disease, stage 3 (moderate); D50.9 Iron deficiency anemia, unspecified; D63.8 Anemia in other chronic diseases classified elsewhere; D69.59 Other secondary thrombocytopenia; E11.9 Type 2 diabetes mellitus without complications; E78.5 Hyperlipidemia, unspecified; K21.9 Gastro-esophageal reflux disease without esophagitis; N40.0 Benign prostatic hyperplasia without lower urinary tract symptoms; I35.0 Nonrheumatic aortic (valve) stenosis; I25.10 Atherosclerotic heart disease of native coronary artery without angina pectoris; M19.90 Unspecified osteoarthritis, unspecified site; Z66 Do not resuscitate; Z95.5 Presence of coronary angioplasty implant and graft; Z87.891 Personal history of nicotine dependence; Z82.49 Family history of ischemic heart disease and other diseases of the circulatory system; Z79.84 Long term (current) use of oral hypoglycemic drugs; Z79.4 Long term (current) use of insulin

== ENCOUNTER 2017-06-06 14:21 | Inpatient (IN) | payer OTHER ==
[~2017-06-06] VITALS: Ht 157.5 cm; Wt 80.5 kg
[~2017-06-06 14:21] MED LIST changes: +FOLI1TAB7 PO; -HYDR1CAP85 PO; -LACT10SO17 PO; +LCTL45 PO
[2017-06-06] MEDS ORDERED: SODIUM CHLORIDE 0.9% 1000ML 1,000 ML IV STA (14:56)
--- NOTE | 2017-06-06 15:13 | EMERGENCY ROOM VISIT NOTE ---
History Report prepared by Pranav: Tomas Nowak Under the Supervision of: Dr. Sally Mac D.O. First contact with patient: 14:44 Chief Complaint: CONFUSION Stated Complaint: CONFUSED History of Present Illness The patient is a 76 year old male who presents to the Emergency Room with complaints of worsening confusion that started a couple of days ago. The patient is accompanied his son and daughter in law who state that the patient was starting to become confused a couple of days ago when his son went to the post office. His son reports that he returned from the post office and the patient thought that he had stayed somewhere over night, even though the patient 's son was only gone for a couple of hours during the day. The patient's daughter in law states that the patient's confusion worsened yesterday when he was closing his eyes and cursing in his chair. She states that he thought his son was in the room and told him to go away. She states that he also started hallucinating that his son was in the kitchen when he was not actually there. His daughter in law states that he had this episode twice, but was able to " snap out of it" and returned to baseline. The patient's daughter in law admits that she called the patient's girlfriend who states that his confusion and hallucinations have been happening intermittently for a while. His daughter in law states that he woke up this morning and started to hallucinate again, which caused her to report to the ED with him. Per nursing, the patient was not able to recall who the president is and where he currently is. The patient admits to a history of a hiatal hernia, liver disease, heart valve problems, and knee pain. His daughter in law states that he has an appointment in two days to have a stress test done. She also admits that the patient has been in and out of the hospital for his history of increased ammonia levels. The patient admits to intermittent diarrhea, but reports that this is chronic. He also reports that he has been urinating frequently. The patient denies any new pain, change in medications, cough, cold, fevers, change in appetite, nausea, SOB, melena, and hematochezia. Source of History: patient, family Onset: a couple of days ago Position: other (global) Quality: other (hallucinations) Timing: intermittent Associated Symptoms: + urinary symptoms, No fevers, No cough, No neck pain, No chest pain, No SOB, No nausea, No abdominal pain, No back pain, No melena, No hematochezia Review of Systems See HPI for pertinent positives & negatives. A total of 10 systems reviewed and were otherwise negative. 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 (5) CKD (chronic kidney disease), stage III (6) Diabetes mellitus type 2 in obese (7) Diverticulosis (8) Dyslipidemia (9) GERD (gastroesophageal reflux disease) (10) GI bleed (11) Hepatic encephalopathy (12) Hiatal hernia (13) HTN (hypertension) (14) Kidney stone (15) KLEIN (nonalcoholic steatohepatitis) (16) Portal hypertensive gastropathy (17) Transaminitis Surgical Problems: (1) H/O hemorrhoidectomy (2) History of cardiac catheterization (3) History of colonoscopy (4) History of lumbar laminectomy Family History FHx: heart disease FATHER ( from [place] age 65) BROTHER ([place] in his 40s) Social History Smoking Status: Former Smoker Alcohol Use: none Drug Use: none Housing Status: lives with family Occupation Status: retired Current/Historical Medications Scheduled Empagliflozin (Jardiance), 10 MG PO QAM Ferrous Gluconate (Ferrous Gluconate), 324 MG PO BID Folic Acid (Folvite), 1 MG PO DAILY Furosemide (Furosemide), 40 MG PO DAILY Insulin Aspart (Novolog Flexpen), 45 UNITS SC AC Insulin Glargine (Lantus Solostar), 45 UNITS SC AMPM Isosorbide Mononitrate Ext Rel (Imdur Ext Rel), 30 MG PO QAM Lactulose (Lactulose), 30 GM PO QID Losartan Potassium (Losartan Potassium), 25 MG PO DAILY Magnesium Oxide (Mag-Ox), 400 MG PO BID Metoprolol Tartrate (Lopressor), 25 MG PO BID Pantoprazole (Pantoprazole Sodium), 40 MG PO BID Potassium Chloride (Potassium Chloride Er), 20 MEQ PO DAILY Rifaximin (Xifaxan), 550 MG PO BID Rosuvastatin Calcium (Rosuvastatin Calcium), 40 MG PO DAILY Tamsulosin HCl (Tamsulosin HCl), 0.4 MG PO DAILY Scheduled PRN Albuterol Hfa (Ventolin Hfa), 2 PUFFS INH QID PRN for Cough Nitroglycerin (Nitrostat), 0.4 MG UT UD PRN for Chest Pain Allergies Coded Allergies: PRASHANT Inhibitors (Verified Allergy, Severe, ANGIOEDEMA from 10/10/11 ED adm, 06/06/17) Lisinopril (Verified Allergy, Severe, Edema - face, lips and tongue, ) Simvastatin (Verified Allergy, Unknown, RASH, SORE ALL OVER. 2013: Uses Crestor, 06/06/17) Physical Exam Vital Signs Date Time Temp Pulse Resp B/P (MAP) Pulse Ox O2 Delivery O2 Flow Rate FiO2 06/06/17 16:51 63 14 94 06/06/17 16:28 107/47 06/06/17 16:21 63 16 93 06/06/17 15:58 71 16 107/50 94 Room Air 06/06/17 15:56 107/50 06/06/17 15:51 64 21 94 06/06/17 15:44 65 22 95/40 94 Room Air 06/06/17 15:33 95/40 06/06/17 15:05 91/47 06/06/17 14:51 68 24 96/45 92 06/06/17 14:51 68 96/45 06/06/17 14:41 67 06/06/17 14:40 68 93/47 94 06/06/17 14:39 93/47 06/06/17 14:31 37.1 70 18 76/43 93 Room Air Physical Exam GENERAL: alert, well appearing, well nourished, no distress, non-toxic EYE EXAM: normal conjunctiva, PERRL and EOM's grossly intact OROPHARYNX: no exudate, no erythema, lips, buccal mucosa, and tongue normal and mucous membranes are moist NECK: supple, no nuchal rigidity, no adenopathy, non-tender LUNGS: Clear to auscultation. Normal chest wall mechanics HEART: no murmurs, S1 normal and S2 normal ABDOMEN: abdomen soft, non-tender, normo-active bowel sounds, no masses, no rebound or guarding. BACK: Back is symmetrical on inspection and there is no deformity, no midline tenderness, no CVA tenderness. SKIN: no rashes and no bruising UPPER EXTREMITIES: upper extremities are grossly normal. LOWER EXTREMITIES: No pitting edema. NEURO EXAM: Confused, difficulty following commands at times, clear speech, no facial droop or sensory deficits, normal strenght, cranial nerves II-XII grossly intact, no gross weakness of arms, no gross weakness of legs. No drift. Finger to nose intact. Gross sensation intact. No ataxia. Medical Decision & Procedures ER Provider Diagnostic Interpretation: Radiology results have been interpreted by the radiologist and reviewed by me. HEAD WITHOUT CONTRAST (CT) CLINICAL HISTORY: 76 years-old Male presenting with confusion. TECHNIQUE: Multidetector CT imaging of the head was performed without the use of intravenous contrast. IV contrast: None. A dose lowering technique was used consistent with the principles of ALARA (as low as reasonably achievable). COMPARISON: 04/23/2017. CT DOSE (mGy.cm): The estimated cumulative dose is 795.47 mGy.cm. FINDINGS: Flexographic Press Set Up Operator topogram: Unremarkable. Ventricles and sulci normal in size. Brain parenchyma normal in appearance with preserved olmstead-white differentiation. No mass effect or midline shift. No hemorrhage or acute territorial infarct. No extra-axial fluid collection. Paranasal sinuses and mastoid air cells clear. Calvarium intact. IMPRESSION: 1. No acute intracranial pathology. Electronically signed by: Sina Donald M.D. 06/06/2017 3:43 PM Dictated Date/Time: 06/06/2017 3:41 PM CHEST ONE VIEW PORTABLE CLINICAL HISTORY: 76 years-old Male presenting with confusion. TECHNIQUE: Portable upright AP view of the chest was obtained. COMPARISON: 04/23/2017. FINDINGS: Atherosclerosis of aortic arch. Top normal heart size. Minimal hazy bibasilar opacities suggested, right greater than left. No large effusion or pneumothorax. Osseous structures normal. Upper abdomen normal. IMPRESSION: 1. Minimal hazy opacities at the lung bases, likely atelectasis. No other evidence of acute cardiopulmonary disease. Electronically signed by: Sina Donald M.D. 06/06/2017 3:45 PM Dictated Date/Time: 06/06/2017 3:44 PM Laboratory Results Test 06/06/17 15:03 06/06/17 16:00 Prothrombin Time 12.4 SECONDS (9.0-12.0) Prothromb Time International Ratio 1.2 (0.9-1.1) Phosphorus Level 2.9 mg/dl (2.5-4.9) Magnesium Level 2.3 mg/dl (1.8-2.4) Total Bilirubin 0.9 mg/dl (0.2-1) Aspartate Amino Transf (AST/SGOT) 66 U/L (15-37) Alanine Aminotransferase (ALT/SGPT) 37 U/L (12-78) Alkaline Phosphatase 220 U/L (45-117) Troponin I < 0.015 ng/ml (0-0.045) Total Protein 6.4 gm/dl (6.4-8.2) Albumin 2.8 gm/dl (3.4-5.0) Globulin 3.6 gm/dl (2.5-4.0) Albumin/Globulin Ratio 0.8 (0.9-2) Lipase 264 U/L (73-393) Thyroid Stimulating Hormone (TSH) 1.880 uIu/ml (0.300-4.500) Ethyl Alcohol mg/dL < 3.0 mg/dl (0-3) Urine Color YELLOW Urine Appearance CLEAR (CLEAR) Urine pH 6.5 (4.5-7.5) Urine Specific Hunt 1.017 (1.000-1.030) Urine Protein NEG (NEG) Urine Glucose (UA) 3+ (NEG) Urine Ketones NEG (NEG) Urine Occult Blood NEG (NEG) Urine Nitrite NEG (NEG) Urine Bilirubin NEG (NEG) Urine Urobilinogen NEG (NEG) Urine Leukocyte Esterase NEG (NEG) Urine Opiates Screen NEG (NEG) Urine Methadone, Qualitative NEG (NEG) Urine Barbiturates NEG (NEG) Urine Phencyclidine (PCP) Level NEG (NEG) Ur Amphetamine/Methamphetamine NEG (NEG) MDMA (Ecstasy) Screen NEG (NEG) Urine Benzodiazepines Screen NEG (NEG) Urine Cocaine Metabolite NEG (NEG) Urine Marijuana (THC) NEG (NEG) Laboratory results per my review. Medications Administered Medications (Trade) Dose Ordered Sig/Suman Route Start Time Stop Time Status Last Admin Dose Admin Sodium Chloride 1,000 ml @ 125 mls/hr Q8H STAT IV 06/06/17 14:56 06/06/17 19:57 DC 06/06/17 15:36 125 MLS/HR Lactulose (Chronulac Syrup) 30 gm NOW STAT PO 06/06/17 17:38 06/06/17 17:39 DC 06/06/17 17:46 30 GM ECG Indication: altered mental status Rate (beats per minute): 67 Findings: no acute ischemic change, no ectopy, other (Normal axis, Prolonged QT otherwise Normal interval) Comparison ECG Date: 04/23/17 Change: no significant change Change: Previous Prolonged QT. ED Course 1446: The patient was evaluated in room B01. A complete history and physical exam was performed. 1456: Ordered Sodium Chloride 1000 ml @ 125 mls/hr IV. 1628: I reevaluated the patient. He is asleep and his family is gone. 1720: I reevaluated the patient and he wakes up easily but is still confused. I updated his family on results. 1734: I discussed the patients case with MICHAEL Valentine Hospitalist. She understands the patients condition and agrees to accept the patient. The patient will be further evaluated. Medical Decision The differential diagnosis includes etiologies such as metabolic, infection, hypoglycemia, electrolyte abnormalities, cardiac sources, intracerebral event, toxicologic, neurologic, as well as others were entertained. Patient presenting with worsening altered mental status over the last 24-36 hours, likely result of hepatic encephalopathy given elevated ammonia and history of cirrhosis. Despite leukocytosis no evidence of clear infectious etiology. Patient's exam and history not consistent with SBP and did not feel warranted diagnostic paracentesis 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. Patient's head CT otherwise unremarkable, patient with a normal and nonfocal neuro exam, no other findings to suggest CVA/TIA. No evidence of dysrhythmia monitor, doubt acute cardiac etiology. Patient started on lactulose following discussion with medicine. Patient is supposed to be taking both lactulose as well as rifaximin daily, although family suspects he is occasionally noncompliant. Patient afebrile here otherwise had stable vital signs, according to family patient with a history of borderline/mild hypotension. Likely component of dehydration, patient started on gentle IV fluids while here and blood pressure continued to slowly improve. Doubt bacteremia/sepsis, doubt AAA/dissection, doubt occult GI bleed, or other occult trauma contributing to hypotension. Doubt tamponade. Discussed with patient and family need for hospitalist evaluation for additional monitoring and treatment, they verbalized understanding were agreeable with plan. Medication Reconcilliation Current Medication List: was personally reviewed by me Blood Pressure Screening Patient's blood pressure: Normal blood pressure Consults Time Called: 1723 Consulting Physician: MICHAEL Valentine Hospitalist Returned Call: [phone] I discussed the patients case with MICHAEL Valentine Hospitalist. She understands the patients condition and agrees to accept the patient. The patient will be further evaluated Impression Primary Impression: Altered mental status Additional Impressions: Hepatic encephalopathy Leukocytosis KLEIN (nonalcoholic steatohepatitis) Scribe Attestation The scribe's documentation has been prepared under my direction and personally reviewed by me in its entirety. I confirm that the note above accurately reflects all work, treatment, procedures, and medical decision making performed by me. Departure Information Dispostion Being Evaluated By Hospitalist Referrals No Doctor, Assigned (PCP) Patient Instructions [facility] Problem Qualifiers Primary Impression: Altered mental status Altered mental status type: disorientation Qualified Codes: R41.0 - Disorientation, unspecified Additional Impressions: Leukocytosis Leukocytosis type: unspecified Qualified Codes: D72.829 - Elevated white blood cell count, unspecified
[2017-06-06 15:25] LABS: HEMATOCRIT 32.7 % (42-52); MEAN CELL VOLUME 94.8 fL (80-100); MEAN CORPUSCULAR HGB CONC 32.7 g/dl (32-36); MEAN PLATELET VOLUME 10.9 fL (7.4-10.4); PLATELET COUNT 144 K/uL (130-400); RED BLOOD COUNT 3.45 M/uL (4.7-6.1); WHITE BLOOD COUNT 15.09 K/uL (4.8-10.8)
[2017-06-06 15:41] LABS: INR 1.2 (0.9-1.1); PROTHROMBIN TIME (PATIENT) 12.4 SECONDS (9.0-12.0)
--- NOTE | 2017-06-06 15:44 | DIAGNOSTIC IMAGING REPORT ---
HEAD WITHOUT CONTRAST (CT) CLINICAL HISTORY: 76 years-old Male presenting with confusion. TECHNIQUE: Multidetector CT imaging of the head was performed without the use of intravenous contrast. IV contrast: None. A dose lowering technique was used consistent with the principles of ALARA (as low as reasonably achievable). COMPARISON: 04/23/2017. CT DOSE (mGy.cm): The estimated cumulative dose is 795.47 mGy.cm. FINDINGS: Comber Operator topogram: Unremarkable. Ventricles and sulci normal in size. Brain parenchyma normal in appearance with preserved olmstead-white differentiation. No mass effect or midline shift. No hemorrhage or acute territorial infarct. No extra-axial fluid collection. Paranasal sinuses and mastoid air cells clear. Calvarium intact. IMPRESSION: 1. No acute intracranial pathology. Electronically signed by: Sina Donald M.D. 06/06/2017 3:43 PM Dictated Date/Time: 06/06/2017 3:41 PM
--- NOTE | 2017-06-06 15:47 | DIAGNOSTIC IMAGING REPORT ---
CHEST ONE VIEW PORTABLE CLINICAL HISTORY: 76 years-old Male presenting with confusion. TECHNIQUE: Portable upright AP view of the chest was obtained. COMPARISON: 04/23/2017. FINDINGS: Atherosclerosis of aortic arch. Top normal heart size. Minimal hazy bibasilar opacities suggested, right greater than left. No large effusion or pneumothorax. Osseous structures normal. Upper abdomen normal. IMPRESSION: 1. Minimal hazy opacities at the lung bases, likely atelectasis. No other evidence of acute cardiopulmonary disease. Electronically signed by: Sina Donald M.D. 06/06/2017 3:45 PM Dictated Date/Time: 06/06/2017 3:44 PM
[2017-06-06 15:50] LABS: BASO % 0.2 %; BASO ABS # 0.03 K/uL (0-0.2); COMPLETE YES; EOS % 0.7 %; IG% 0.3 %; LYMPH % 6.6 %; LYMPH ABS # 0.99 K/uL (1.2-3.4); MONO % 5.3 %; NEUT % 86.9 %
[2017-06-06 15:58] LABS: ALT/SGPT 37 U/L (12-78); BLOOD UREA NITROGEN 22 mg/dl (7-18); BUN/CREATININE RATIO 15.4 (10-20); CALCIUM 9.6 mg/dl (8.5-10.1); CARBON DIOXIDE 23 mmol/L (21-32); CHLORIDE 109 mmol/L (98-107); GLUCOSE 182 mg/dl (70-99); MAGNESIUM 2.3 mg/dl (1.8-2.4); POTASSIUM 4.5 mmol/L (3.5-5.1); SODIUM 141 mmol/L (136-145)
[2017-06-06 16:09] LABS: ALB/GLOB RATIO 0.8 (0.9-2); ALKALINE PHOSPHATASE 220 U/L (45-117); AST/SGOT 66 U/L (15-37); PHOSPHORUS 2.9 mg/dl (2.5-4.9)
[2017-06-06 17:07] LABS: URINE APPEARANCE CLEAR (CLEAR); URINE BILIRUBIN NEG (NEG); URINE COLOR YELLOW; URINE NITRITE NEG (NEG); URINE PH 6.5 (4.5-7.5); URINE SPECIFIC GRAVITY 1.017 (1.000-1.030); UROBILINOGEN NEG (NEG); ZZUR CULT IF INDIC CLEAN CATCH NO
[2017-06-06 17:09] LABS: MANUAL MICROSCOPIC REQUIRED? NO; REVIEW REQ? NO
[2017-06-06 17:13] LABS: BENZODIAZEPINE, URINE NEG (NEG); COCAINE,URINE NEG (NEG); PHENCYCLIDINE, URINE NEG (NEG)
[2017-06-06] MEDS ORDERED: LACTULOSE SYRUP 20 GM/30 ML UDC PO STA (17:38)
[2017-06-06] MEDS ORDERED: ACETAMINOPHEN 325 MG TAB PO PRN (19:00)
[2017-06-06] MEDS ORDERED: ONDANSETRON INJ 2 MG/ML 2 ML VIAL IV PRN (19:00)
[2017-06-06] MEDS ORDERED: AZITHROMYCIN IV 500 MG in DEXTROSE 5% 250ML 250 ML IV STA (19:13)
[2017-06-06] MEDS ORDERED: CEFTRIAXONE SOD INJ 1 GM ADDVIAL IV STA (19:13)
[2017-06-06] MEDS ORDERED: DEXTROSE 50% 50 ML SYR IV PRN (19:15)
[2017-06-06] MEDS ORDERED: GLUCAGON FOR INJ 1 MG VIAL SQ PRN (19:15)
[2017-06-06] MEDS ORDERED: ALBUTEROL HFA 8 GM INHALER INH PRN (19:15)
[2017-06-06] MEDS ORDERED: GLUCOSE 40% GEL 15 GM TUBE PO PRN (19:15)
[2017-06-06] MEDS ORDERED: GLUCOSE 10 TABS/TUBE PO PRN (19:15)
[2017-06-06] MEDS ORDERED: NITROGLYCERIN 0.4 MG SL PER TAB CHARGE UT PRN (19:15)
[2017-06-06 19:44] VITALS: BP 99/48; PULSE 62; TEMP 36.8; O2SAT 95; BMI 33.5
[2017-06-06] MEDS ORDERED: CEFTRIAXONE SOD INJ 1 GM in DEXTROSE 5% ADD-VANTAGE 50ML 50 ML IV SCH (20:00)
[2017-06-06] MEDS ORDERED: AZITHROMYCIN IV 500 MG in DEXTROSE 5% 250ML 250 ML IV SCH (20:00)
[2017-06-06] MEDS ORDERED: PATIENT'S HEIGHT AND/OR WEIGHT NEEDED SCH (20:15)
[2017-06-06] MEDS ORDERED: SODIUM CHLORIDE 0.9% 500ML 500 ML IV SCH (20:30)
[2017-06-06] MEDS: PANTOprazole SOD 40 MG TAB PO SCH (20:56)
[2017-06-06] MEDS: RIFAXIMIN TAB 550 MG TAB PO SCH (20:56)
[2017-06-06] MEDS: LACTULOSE SYRUP 30 GM/45 ML UDP PO SCH (20:57)
[2017-06-06] MEDS: FERROUS GLUCONATE 324 MG TAB PO SCH (20:57)
[2017-06-06] MEDS: MAGNESIUM OXIDE 400 MG TAB PO SCH (20:57)
[2017-06-06] MEDS: INSULIN ASPART 100 UNITS/ML 3 ML PEN SC SCH (21:00)
[2017-06-06] MEDS: INSULIN GLARGINE SC SCH (21:02)
[2017-06-06] MEDS: ENOXAPARIN 40 MG/0.4 ML SYR SQ SCH (21:05)
--- NOTE | 2017-06-06 22:18 | History and Physical ---
History & Physical Date & Time of Service: Jun 06, 2017 at 19:17 Chief Complaint: Confused Primary Care Physician: Dr. Baltazar History of Present Illness Source: patient, family (daughter and law and son via phone call), clinic records, hospital records This is a 76 year old male with PMH of KLEIN cirrhosis, history of hepatic encephalopathy, DM type 2, CAD s/p stenting, HTN, severe , CKD, chronic anemia , and other problems listed below who presents to the ED with altered mental status. Pt's family reports of confusion and hallucinations for past few days. Family unsure if patient is taking meds for past few days as patient lives alone. Pt reports feeling asymptomatic at present. He is currently oriented to person and place, but disoriented to date. He admits to cough with white sputum x 1 week with associated rhinorrhea. He reports chronic MAN with ambulating which is unchanged. Reports episode of epigastric pain last night attributed to his hiatal hernia which resolved. Has chronic loose BM 2-3x daily. States stool has been black in color for some time. He is on iron supplement. Had frequent urination yesterday which resolved. He denies recent fever, chills, chest pain, N/V, appetite loss, hematochezia, dysuria, rash, wounds, MOSELEY, neck pain, dizziness, vision change, speech difficulty, focal weakness or numbness. Cyndi recent medication change. Past Medical/Surgical History Medical Problems: (1) Anemia Status: Chronic (2) Aortic stenosis Permanent Comment: severe on echo 04/2017 Status: Chronic (3) CAD (coronary artery disease) Permanent Comment: 2009 - RCA stent 2012 - RCA stent restenosis, s/p AMOS to RCA Status: Chronic (4) Cirrhosis of liver not due to alcohol Status: Chronic (5) CKD (chronic kidney disease), stage III Status: Chronic (6) Diabetes mellitus type 2 in obese Status: Chronic (7) Diverticulosis Status: Chronic (8) Dyslipidemia Status: Chronic (9) GERD (gastroesophageal reflux disease) Status: Chronic (10) GI bleed Status: Chronic (11) Hepatic encephalopathy Status: Chronic (12) Hiatal hernia Status: Chronic (13) HTN (hypertension) Status: Chronic (14) Kidney stone Status: Resolved (15) KLEIN (nonalcoholic steatohepatitis) Status: Chronic (16) Portal hypertensive gastropathy Status: Chronic (17) Transaminitis Status: Chronic Surgical Problems: (1) H/O hemorrhoidectomy Status: Resolved (2) History of cardiac catheterization Status: Resolved (3) History of colonoscopy Status: Resolved (4) History of lumbar laminectomy Status: Resolved Family History FHx: heart disease FATHER ( from [place] age 65) BROTHER ([place]AB[place] in his 40s) Social History Smoking Status: Former Smoker (quit 20 years ago) Alcohol Use: none Drug Use: none Housing status: lives alone Occupational Status: retired Immunizations History of Influenza Vaccine: Yes Influenza Vaccine Date: Jun 08, 2016 History of Tetanus Vaccine?: Yes Tetanus Immunization Date: Nov 30, 2007 History of Pneumococcal: Yes Pneumococcal Date: Mar 19, 2015 Allergies Coded Allergies: PRASHANT Inhibitors (Verified Allergy, Severe, ANGIOEDEMA from 10/10/11 ED adm, 06/06/17) Lisinopril (Verified Allergy, Severe, Edema - face, lips and tongue, ) Simvastatin (Verified Allergy, Unknown, RASH, SORE ALL OVER. 2013: Uses Crestor, 06/06/17) Home Medications Scheduled Empagliflozin (Jardiance), 10 MG PO QAM Ferrous Gluconate (Ferrous Gluconate), 324 MG PO BID Folic Acid (Folvite), 1 MG PO DAILY Furosemide (Furosemide), 40 MG PO DAILY Insulin Aspart (Novolog Flexpen), 45 UNITS SC AC Insulin Glargine (Lantus Solostar), 45 UNITS SC AMPM Isosorbide Mononitrate Ext Rel (Imdur Ext Rel), 30 MG PO QAM Lactulose (Lactulose), 30 GM PO QID Losartan Potassium (Losartan Potassium), 25 MG PO DAILY Magnesium Oxide (Mag-Ox), 400 MG PO BID Metoprolol Tartrate (Lopressor), 25 MG PO BID Pantoprazole (Pantoprazole Sodium), 40 MG PO BID Potassium Chloride (Potassium Chloride Er), 20 MEQ PO DAILY Rifaximin (Xifaxan), 550 MG PO BID Rosuvastatin Calcium (Rosuvastatin Calcium), 40 MG PO DAILY Tamsulosin HCl (Tamsulosin HCl), 0.4 MG PO DAILY Scheduled PRN Albuterol Hfa (Ventolin Hfa), 2 PUFFS INH QID PRN for Cough Nitroglycerin (Nitrostat), 0.4 MG UT UD PRN for Chest Pain Review of Systems Ten systems reviewed and negative except as noted in HPI. Physical Exam Vital Signs Date Time Temp Pulse Resp B/P (MAP) Pulse Ox O2 Delivery O2 Flow Rate FiO2 06/06/17 16:51 63 14 94 06/06/17 16:28 107/47 06/06/17 16:21 63 16 93 06/06/17 15:58 71 16 107/50 94 Room Air 06/06/17 15:56 107/50 06/06/17 15:51 64 21 94 06/06/17 15:44 65 22 95/40 94 Room Air 06/06/17 15:33 95/40 06/06/17 15:05 91/47 06/06/17 14:51 68 24 96/45 92 06/06/17 14:51 68 96/45 06/06/17 14:41 67 06/06/17 14:40 68 93/47 94 06/06/17 14:39 93/47 06/06/17 14:31 37.1 70 18 76/43 93 Room Air General Appearance: WD/WN, no apparent distress Head: normocephalic, atraumatic Eyes: normal inspection, EOMI, + pertinent finding (right pupil reactive to light. left pupil mildly abnormal shape, nonreactive to light. ) ENT: hearing grossly normal, pharynx normal Neck: supple, trachea midline Respiratory/Chest: normal breath sounds, no respiratory distress, no accessory muscle use, + rales (right base) Cardiovascular: regular rate, rhythm, no murmur Abdomen/GI: normal bowel sounds, non tender, soft Extremities/Musculoskelatal: no calf tenderness, no pedal edema Neurologic/Psych: alert, normal mood/affect, + pertinent finding (oriented to person and place, disoriented to month/year, unable to correctly name president. speech is clear. facial movements symmetric. no motor or sensory deficit of extremities. ) Skin: normal color, warm/dry Diagnostics Laboratory Results Results Past 24 Hours Test 06/06/17 14:55 06/06/17 15:03 06/06/17 16:00 06/06/17 18:57 Range/Units Bedside Glucose 179 70-99 mg/dl White Blood Count 15.09 4.8-10.8 K/uL Red Blood Count 3.45 4.7-6.1 M/uL Hemoglobin 10.7 14.0-18.0 g/dL Hematocrit 32.7 42-52 % Mean Corpuscular Volume 94.8 80-100 fL Mean Corpuscular Hemoglobin 31.0 25-34 pg Mean Corpuscular Hemoglobin Concent 32.7 32-36 g/dl Platelet Count 144 130-400 K/uL Mean Platelet Volume 10.9 7.4-10.4 fL Neutrophils (%) (Auto) 86.9 % Lymphocytes (%) (Auto) 6.6 % Monocytes (%) (Auto) 5.3 % Eosinophils (%) (Auto) 0.7 % Basophils (%) (Auto) 0.2 % Neutrophils # (Auto) 13.12 1.4-6.5 K/uL Lymphocytes # (Auto) 0.99 1.2-3.4 K/uL Monocytes # (Auto) 0.80 0.11-0.59 K/uL Eosinophils # (Auto) 0.11 0-0.5 K/uL Basophils # (Auto) 0.03 0-0.2 K/uL RDW Standard Deviation 50.5 36.4-46.3 fL RDW Coefficient of Variation 14.8 11.5-14.5 % Immature Granulocyte % (Auto) 0.3 % Immature Granulocyte # (Auto) 0.04 0.00-0.02 K/uL Prothrombin Time 12.4 9.0-12.0 SECONDS Prothromb Time International Ratio 1.2 0.9-1.1 Sodium Level 141 136-145 mmol/L Potassium Level 4.5 3.5-5.1 mmol/L Chloride Level 109 98-107 mmol/L Carbon Dioxide Level 23 21-32 mmol/L Anion Gap 9.0 3-11 mmol/L Blood Urea Nitrogen 22 7-18 mg/dl Creatinine 1.40 0.60-1.40 mg/dl Estimated GFR () 55.4 Estimated GFR (Non- 47.8 BUN/Creatinine Ratio 15.4 10-20 Random Glucose 182 70-99 mg/dl Lactic Acid Level 2.1 0.4-2.0 mmol/L Calcium Level 9.6 8.5-10.1 mg/dl Phosphorus Level 2.9 2.5-4.9 mg/dl Magnesium Level 2.3 1.8-2.4 mg/dl Total Bilirubin 0.9 0.2-1 mg/dl Aspartate Amino Transf (AST/SGOT) 66 15-37 U/L Alanine Aminotransferase (ALT/SGPT) 37 12-78 U/L Alkaline Phosphatase 220 45-117 U/L Ammonia 152.0 11-32 umol/L Troponin I < 0.015 0-0.045 ng/ml Total Protein 6.4 6.4-8.2 gm/dl Albumin 2.8 3.4-5.0 gm/dl Globulin 3.6 2.5-4.0 gm/dl Albumin/Globulin Ratio 0.8 0.9-2 Lipase 264 73-393 U/L Thyroid Stimulating Hormone (TSH) 1.880 0.300-4.500 uIu/ml Ethyl Alcohol mg/dL < 3.0 0-3 mg/dl Urine Color YELLOW Urine Appearance CLEAR CLEAR Urine pH 6.5 4.5-7.5 Urine Specific Lug[place] 1.017 1.000-1.030 Urine Protein NEG NEG Urine Glucose (UA) 3+ NEG Urine Ketones NEG NEG Urine Occult Blood NEG NEG Urine Nitrite NEG NEG Urine Bilirubin NEG NEG Urine Urobilinogen NEG NEG Urine Leukocyte Esterase NEG NEG Urine Opiates Screen NEG NEG Urine Methadone, Qualitative NEG NEG Urine Barbiturates NEG NEG Urine Phencyclidine (PCP) Level NEG NEG Ur Amphetamine/Methamphetamine NEG NEG MDMA (Ecstasy) Screen NEG NEG Urine Benzodiazepines Screen NEG NEG Urine Cocaine Metabolite NEG NEG Urine Marijuana (THC) NEG NEG Microbiology Results 06/06/17 Blood Culture, Ordered Pending 06/06/17 Blood Culture, Ordered Pending Diagnostic Radiology HEAD WITHOUT CONTRAST (CT) CLINICAL HISTORY: 76 years-old Male presenting with confusion. TECHNIQUE: Multidetector CT imaging of the head was performed without the use of intravenous contrast. IV contrast: None. A dose lowering technique was used consistent with the principles of ALARA (as low as reasonably achievable). COMPARISON: 04/23/2017. CT DOSE (mGy.cm): The estimated cumulative dose is 795.47 mGy.cm. FINDINGS: Patient Care Associate topogram: Unremarkable. Ventricles and sulci normal in size. Brain parenchyma normal in appearance with preserved olmstead-white differentiation. No mass effect or midline shift. No hemorrhage or acute territorial infarct. No extra-axial fluid collection. Paranasal sinuses and mastoid air cells clear. Calvarium intact. IMPRESSION: 1. No acute intracranial pathology. CHEST ONE VIEW PORTABLE CLINICAL HISTORY: 76 years-old Male presenting with confusion. TECHNIQUE: Portable upright AP view of the chest was obtained. COMPARISON: 04/23/2017. FINDINGS: Atherosclerosis of aortic arch. Top normal heart size. Minimal hazy bibasilar opacities suggested, right greater than left. No large effusion or pneumothorax. Osseous structures normal. Upper abdomen normal. IMPRESSION: 1. Minimal hazy opacities at the lung bases, likely atelectasis. No other evidence of acute cardiopulmonary disease. EKG NSR, nonspecific T wave abnormality in inferior leads and V6- chronic, no ST changes, prolonged QT (qtc= 494) Impression Assessment and Plan ALTERED MENTAL STATUS 2/2 hepatic encephalopathy (ammonia level 152) due to KLEIN cirrhosis, possible possible non-compliance with meds; ER workup included CT head- no acute findings , urine drug screen- negative Received dose of lactulose in ER Resume lactulose and rifaximin Recheck ammonia level in AM HYPOTENSION- resolved Initial BP 76/43 in ER- > improved to 120s systolic with IVF's in ER, now running 90s systolic- will give another 500 mL IVF's Hold furosemide, metoprolol, losartan for now Isosorbide continued with parameters LEUKOCYTOSIS (WBC 15K) Possibly secondary to HCAP- presents with cough/ white sputum production x 1 week, portable CXR read as minimal hazy opacities at the lung bases, likely atelectasis Afebrile, no tachycardia, no tachypnea Start on empiric abx- ceftriaxone and azithromycin Check blood cultures, sputum culture Consider repeat CXR 2 views Repeat CBC in AM LACTIC ACID ELEVATION Initial lactic acid 2.1 -> repeat ? Due to infection vs. dehydration vs. other Recheck lactic acid at midnight MILD PROLONGED QT Check repeat EKG in am AORTIC STENOSIS Echo 05/19/17 showed LV EF >70%, severe aortic valve stenosis CAD S/P STENT Continue statin and Imdur Beta wesly and losartan on hold for hypotension Not on aspirin- unclear reason, platelet count stable, will start baby ASA tomorrow morning DM TYPE 2 Hold Jardiance Continue Lantus Novolog sliding scale BPH Continue Flomax DVT PROPHYLAXIS Lovenox SQ CODE STATUS Full no mech ventilation as per my discussion with Michael Dongn patient's son and POA ([phone]) DISPOSITION Lives alone, daughter in law Irena Quintero, his main caregiver, lives nearby Consult social work associate for discharge planning Patient seen in collaboration with Dr. Rosales. Please see her addendum. ADDENDUM: I have seen and evaluated the patient and have discussed the case with the provider above . I agree with the assessment and plan as stated. Bobby, DO VTE Prophylaxis VTE Risk Assessment Done? Y/N: Yes Risk Level: Moderate
[2017-06-07] VITALS (10 sets, daily range): BP systolic 96–123; BP diastolic 44–65; PULSE 61–78; TEMP 36.5–37.2; O2SAT 92–98; Ht 157.5 cm; Wt 80.5 kg
[2017-06-07 06:23] LABS: BASO % 0.6 %; BASO ABS # 0.04 K/uL (0-0.2); COMPLETE YES; EOS % 2.2 %; HEMATOCRIT 31.7 % (42-52); IG% 0.3 %; LYMPH % 15.9 %; LYMPH ABS # 1.08 K/uL (1.2-3.4); MEAN CELL VOLUME 94.6 fL (80-100); MEAN CORPUSCULAR HEMOGLOBIN 31.3 pg (25-34); MEAN CORPUSCULAR HGB CONC 33.1 g/dl (32-36); MEAN PLATELET VOLUME 10.9 fL (7.4-10.4); MONO % 8.8 %; NEUT % 72.2 %; PLATELET COUNT 117 K/uL (130-400); RED BLOOD COUNT 3.35 M/uL (4.7-6.1); WHITE BLOOD COUNT 6.81 K/uL (4.8-10.8)
[2017-06-07 06:55] LABS: BUN/CREATININE RATIO 17.5 (10-20); CALCIUM 9.2 mg/dl (8.5-10.1); CREATININE 1.3 mg/dl (0.60-1.40); POTASSIUM 3.6 mmol/L (3.5-5.1)
[2017-06-07] MEDS: ASPIRIN 81 MG ECTAB PO SCH (08:04)
[2017-06-07] MEDS: LACTULOSE SYRUP 30 GM/45 ML UDP PO SCH ×4 (08:04→20:32)
[2017-06-07] MEDS: TAMSULOSIN HCL 0.4 MG CAP PO SCH (08:05)
[2017-06-07] MEDS: FERROUS GLUCONATE 324 MG TAB PO SCH ×2 (08:05→20:33)
[2017-06-07] MEDS: RIFAXIMIN TAB 550 MG TAB PO SCH ×2 (08:05→20:33)
[2017-06-07] MEDS: ROSUVASTATIN CALCIUM 20 MG TAB PO SCH (08:05)
[2017-06-07] MEDS: MAGNESIUM OXIDE 400 MG TAB PO SCH ×2 (08:05→20:32)
[2017-06-07] MEDS: PANTOprazole SOD 40 MG TAB PO SCH ×2 (08:06→20:34)
[2017-06-07] MEDS: INSULIN ASPART 100 UNITS/ML 3 ML PEN SC SCH ×4 (08:12→20:36)
[2017-06-07] MEDS: INSULIN GLARGINE SC SCH ×2 (08:13→20:37)
[2017-06-07] MEDS ORDERED: POTASSIUM CHLORIDE 20 MEQ TABCR PO SCH (09:00)
[2017-06-07] MEDS ORDERED: ISOSORBIDE MONONITRATE 30 MG TABCR PO SCH (09:00)
--- NOTE | 2017-06-07 10:40 | Progress Note ---
Medicine Progress Note Date & Time of Visit: Jun 07, 2017 at 10:33. Subjective patient seen resting in bed, comfortable oriented x 2, answers all questions appropriately denies confusion no abdominal pain, fever/chills denies melena, hematochezia still has cough, producing white sputum, but no dyspnea no other symptoms Objective Last 8 Hrs Date Time Temp Pulse Resp B/P (MAP) Pulse Ox O2 Delivery O2 Flow Rate FiO2 06/07/17 09:50 Room Air 06/07/17 07:46 36.5 61 13 108/65 (79) 92 Room Air 06/07/17 04:11 36.7 68 18 123/64 (83) 94 Room Air 06/07/17 04:00 Room Air Physical Exam: General- oriented x 3, not in distress, speaks in sentences with no effort Head- atraumatic Eyes- EOMI, anicteric ENT- oropharynx clear Neck- supple, no JVD, no adenopathy, no thyromegaly Lungs- clear breath sounds bilaterally, no rales/wheezes Heart- regular rhythm; no murmur, normal rate Abdomen- normal bowel sounds, soft, nontender, no masses Extremities- no pretibial edema, no calf tenderness; peripheral pulses intact Neuro- alert, oriented x 2; no gross focal motor/sensory deficits Skin- warm & dry Laboratory Results: Last 24 Hours Test 06/06/17 14:55 06/06/17 15:03 06/06/17 16:00 06/06/17 18:57 Bedside Glucose 179 mg/dl White Blood Count 15.09 K/uL Red Blood Count 3.45 M/uL Hemoglobin 10.7 g/dL Hematocrit 32.7 % Mean Corpuscular Volume 94.8 fL Mean Corpuscular Hemoglobin 31.0 pg Mean Corpuscular Hemoglobin Concent 32.7 g/dl Platelet Count 144 K/uL Mean Platelet Volume 10.9 fL Neutrophils (%) (Auto) 86.9 % Lymphocytes (%) (Auto) 6.6 % Monocytes (%) (Auto) 5.3 % Eosinophils (%) (Auto) 0.7 % Basophils (%) (Auto) 0.2 % Neutrophils # (Auto) 13.12 K/uL Lymphocytes # (Auto) 0.99 K/uL Monocytes # (Auto) 0.80 K/uL Eosinophils # (Auto) 0.11 K/uL Basophils # (Auto) 0.03 K/uL RDW Standard Deviation 50.5 fL RDW Coefficient of Variation 14.8 % Immature Granulocyte % (Auto) 0.3 % Immature Granulocyte # (Auto) 0.04 K/uL Prothrombin Time 12.4 SECONDS Prothromb Time International Ratio 1.2 Sodium Level 141 mmol/L Potassium Level 4.5 mmol/L Chloride Level 109 mmol/L Carbon Dioxide Level 23 mmol/L Anion Gap 9.0 mmol/L Blood Urea Nitrogen 22 mg/dl Creatinine 1.40 mg/dl Estimated GFR () 55.4 Estimated GFR (Non- 47.8 BUN/Creatinine Ratio 15.4 Random Glucose 182 mg/dl Lactic Acid Level 2.1 mmol/L 2.7 mmol/L Calcium Level 9.6 mg/dl Phosphorus Level 2.9 mg/dl Magnesium Level 2.3 mg/dl Total Bilirubin 0.9 mg/dl Aspartate Amino Transf (AST/SGOT) 66 U/L Alanine Aminotransferase (ALT/SGPT) 37 U/L Alkaline Phosphatase 220 U/L Ammonia 152.0 umol/L Troponin I < 0.015 ng/ml Total Protein 6.4 gm/dl Albumin 2.8 gm/dl Globulin 3.6 gm/dl Albumin/Globulin Ratio 0.8 Lipase 264 U/L Thyroid Stimulating Hormone (TSH) 1.880 uIu/ml Ethyl Alcohol mg/dL < 3.0 mg/dl Urine Color YELLOW Urine Appearance CLEAR Urine pH 6.5 Urine Specific [place]alier 1.017 Urine Protein NEG Urine Glucose (UA) 3+ Urine Ketones NEG Urine Occult Blood NEG Urine Nitrite NEG Urine Bilirubin NEG Urine Urobilinogen NEG Urine Leukocyte Esterase NEG Urine Opiates Screen NEG Urine Methadone, Qualitative NEG Urine Barbiturates NEG Urine Phencyclidine (PCP) Level NEG Ur Amphetamine/Methamphetamine NEG MDMA (Ecstasy) Screen NEG Urine Benzodiazepines Screen NEG Urine Cocaine Metabolite NEG Urine Marijuana (THC) NEG Test 06/06/17 19:46 06/07/17 00:39 06/07/17 06:07 06/07/17 06:49 Bedside Glucose 147 mg/dl 97 mg/dl Lactic Acid Level 1.8 mmol/L White Blood Count 6.81 K/uL Red Blood Count 3.35 M/uL Hemoglobin 10.5 g/dL Hematocrit 31.7 % Mean Corpuscular Volume 94.6 fL Mean Corpuscular Hemoglobin 31.3 pg Mean Corpuscular Hemoglobin Concent 33.1 g/dl Platelet Count 117 K/uL Mean Platelet Volume 10.9 fL Neutrophils (%) (Auto) 72.2 % Lymphocytes (%) (Auto) 15.9 % Monocytes (%) (Auto) 8.8 % Eosinophils (%) (Auto) 2.2 % Basophils (%) (Auto) 0.6 % Neutrophils # (Auto) 4.92 K/uL Lymphocytes # (Auto) 1.08 K/uL Monocytes # (Auto) 0.60 K/uL Eosinophils # (Auto) 0.15 K/uL Basophils # (Auto) 0.04 K/uL RDW Standard Deviation 50.7 fL RDW Coefficient of Variation 14.8 % Immature Granulocyte % (Auto) 0.3 % Immature Granulocyte # (Auto) 0.02 K/uL Sodium Level 145 mmol/L Potassium Level 3.6 mmol/L Chloride Level 112 mmol/L Carbon Dioxide Level 25 mmol/L Anion Gap 8.0 mmol/L Blood Urea Nitrogen 23 mg/dl Creatinine 1.30 mg/dl Est Creatinine Clear Calc Drug Dose 42.8 ml/min Estimated GFR () 60.6 Estimated GFR (Non- 52.3 BUN/Creatinine Ratio 17.5 Random Glucose 93 mg/dl Calcium Level 9.2 mg/dl Ammonia 65.0 umol/L Date/Time Source Procedure Growth Status 06/06/17 20:24 Blood Blood Culture Pending Received 06/06/17 20:15 Blood Blood Culture Pending Received Assessment & Plan ALTERED MENTAL STATUS 2/2 hepatic encephalopathy; -- patient reports to me that he takes his lactulose 3x a day, also Rifaximin -- noted to be confused by family, brought to the ER ER workup included CT head- no acute findings, urine drug screen- negative Ammonia 150s -- Lactulose QID and Rifaximin resumed Ammonia improved to 60s -- no confusion today will consult GI HYPOTENSION- resolved Initial BP 76/43 in ER- > improved to 120s systolic with IVF's in ER, now running 90s systolic- will give another 500 mL IVF's Hold furosemide, metoprolol, losartan, imdur for now -- may need to resume Metoprolol, Lasix when BP improves LEUKOCYTOSIS (WBC 15K) Possibly secondary to possible Pneumonia, Bronchitis - presents with cough/ white sputum production x 1 week, portable CXR read as minimal hazy opacities at the lung bases, likely atelectasis Afebrile, no tachycardia, no tachypnea Start on empiric abx- ceftriaxone and azithromycin Check blood cultures, sputum culture: pending -- WBC resolved change Ceftri + Azithro to Doxycycline -- monitor LACTIC ACID ELEVATION Initial lactic acid 2.1 -> repeat - resolved MILD PROLONGED QT Check repeat EKG in am: 503 - stop Azithro monitor AORTIC STENOSIS Echo 05/19/17 showed LV EF >70%, severe aortic valve stenosis CAD S/P STENT Continue statin and Imdur Beta wesly and losartan on hold for hypotension Not on aspirin- unclear reason, platelet count stable ASA restarted DM TYPE 2 Hold Jardiance Continue Lantus Novolog sliding scale BPH Continue Flomax DVT PROPHYLAXIS Lovenox SQ CODE STATUS Full no mech ventilation as per my discussion with Michael Dongn patient's son and POA ([phone]) DISPOSITION Lives alone, daughter in law Irena Quintero, his main caregiver, lives nearby Consult high school social studies teacher for discharge planning Current Inpatient Medications: Current Inpatient Medications Medications (Trade) Dose Ordered Sig/Suman Route Start Time Stop Time Status Last Admin Dose Admin Acetaminophen (Tylenol Tab) 650 mg Q4H PRN PO 06/06/17 19:00 07/06/17 18:59 Ondansetron HCl (Zofran Inj) 4 mg Q6H PRN IV 06/06/17 19:00 07/06/17 18:59 Albuterol (Ventolin Hfa Inhaler) 2 puffs QID PRN INH 06/06/17 19:15 07/06/17 19:14 Ferrous Gluconate (Ferrous Gluconate Tab) 324 mg BID PO 06/06/17 21:00 07/06/17 20:59 06/07/17 08:05 324 MG Folic Acid (Folvite Tab) 1 mg DAILY PO 06/07/17 09:00 07/07/17 08:59 06/07/17 08:04 1 MG Insulin Glargine (Lantus Vial) 45 units BID SC 06/06/17 21:00 07/06/17 20:59 06/07/17 08:13 45 UNITS Lactulose (Chronulac Syrup) 30 gm QID PO 06/06/17 21:00 07/06/17 20:59 06/07/17 08:04 30 GM Magnesium Oxide (Mag-Ox Tab) 400 mg BID PO 06/06/17 21:00 07/06/17 20:59 06/07/17 08:05 400 MG Nitroglycerin (Nitrostat Tab) 0.4 mg UD PRN UT 06/06/17 19:15 07/06/17 19:14 Pantoprazole Sodium (Protonix Tab) 40 mg BID PO 06/06/17 21:00 07/06/17 20:59 06/07/17 08:06 40 MG Rifaximin (Xifaxan Tab) 550 mg BID PO 06/06/17 21:00 07/06/17 20:59 06/07/17 08:05 550 MG Tamsulosin HCl (Flomax Cap) 0.4 mg DAILY PO 06/07/17 09:00 07/07/17 08:59 06/07/17 08:05 0.4 MG Rosuvastatin Calcium (Crestor Tab) 40 mg DAILY PO 06/07/17 09:00 07/07/17 08:59 06/07/17 08:05 40 MG Insulin Aspart (novoLOG ASPART) SLIDING SCALE If C... ACHS SC 06/06/17 21:00 07/06/17 20:59 06/07/17 08:12 2 UNITS Glucose (Glucose 40% Gel) 15-30 GRAMS 15 GRAMS... UD PRN PO 06/06/17 19:15 07/06/17 19:14 Glucose (Glucose Chew Tab) 4-8 Tablets 4 Tabl... UD PRN PO 06/06/17 19:15 07/06/17 19:14 Dextrose (Dextrose 50% 50ML Syringe) 25-50ML OF 50% DW IV FOR... UD PRN IV 06/06/17 19:15 07/06/17 19:14 Glucagon (Glucagon Inj) 1 mg UD PRN SQ 06/06/17 19:15 07/06/17 19:14 Enoxaparin Sodium (Lovenox Inj) 40 mg HS SQ 06/06/17 21:00 07/06/17 20:59 06/06/17 21:05 40 MG Aspirin (Ecotrin Tab) 81 mg QAM PO 06/07/17 09:00 07/07/17 08:59 06/07/17 08:04 81 MG Doxycycline Hyclate (Vibramycin Cap) 100 mg BID PO 06/07/17 20:00 06/14/17 19:59
[2017-06-07] MEDS: DOXYCYCLINE HYCLATE 100 MG CAP PO SCH (20:33)
[2017-06-07] MEDS: ENOXAPARIN 40 MG/0.4 ML SYR SQ SCH (20:35)
[2017-06-08] VITALS (7 sets, daily range): BP systolic 120–146; BP diastolic 63–76; PULSE 71–87; TEMP 36.6–36.9; O2SAT 92–97
[2017-06-08] MEDS: LACTULOSE SYRUP 30 GM/45 ML UDP PO SCH ×4 (08:18→20:12)
[2017-06-08] MEDS: DOXYCYCLINE HYCLATE 100 MG CAP PO SCH ×2 (08:18→20:12)
[2017-06-08] MEDS: TAMSULOSIN HCL 0.4 MG CAP PO SCH (08:18)
[2017-06-08] MEDS: ASPIRIN 81 MG ECTAB PO SCH (08:18)
[2017-06-08] MEDS: PANTOprazole SOD 40 MG TAB PO SCH ×2 (08:18→20:12)
[2017-06-08] MEDS: FERROUS GLUCONATE 324 MG TAB PO SCH ×2 (08:18→20:12)
[2017-06-08] MEDS: ROSUVASTATIN CALCIUM 20 MG TAB PO SCH (08:19)
[2017-06-08] MEDS: RIFAXIMIN TAB 550 MG TAB PO SCH ×2 (08:19→20:12)
[2017-06-08] MEDS: MAGNESIUM OXIDE 400 MG TAB PO SCH ×2 (08:19→20:12)
[2017-06-08] MEDS: INSULIN ASPART 100 UNITS/ML 3 ML PEN SC SCH ×4 (08:25→20:12)
[2017-06-08] MEDS: INSULIN GLARGINE SC SCH ×2 (08:26→20:17)
--- NOTE | 2017-06-08 08:39 | Gastrointestinal Consultation ---
Gastrointestinal Consultation Date of Consultation: Jun 08, 2017 Attending Physician: Matthew Consulting Physician: Nhi Reason for Consultation: confusion History of Present Illness Patient is a 76 year old male w/ PMH significant for KLEIN cirrhosis, T2DM, CAD, hyperlipidemia and others listed below who presented through the ED for evaluation of confusion x a few days - GI was consulted for elevated ammonia. Pt has been admitted x 2 in the past few months for similar symptoms. Pt tells me over the past few days he began to notice he was feeling more confused - today he tells me he is feeling like his normal. He tells me I can call and ask Irena about which medications he is using, but suggests that he is taking his lactulose but that he is not taking any xifaxan. On this therapy, he is having between 1-2 formed stools daily. Never had any more than two BMs. No BRBPR. No melena. No upper abdominal complaints: denies nausea, vomiting, regurgitation, epigastric pain, RUQ. He tells me he feels well today. Denies fever, chills, CP , SOB. Decompensations Hepatic Encephalopathy: yes on lactulose and Xifaxan Ascites: none Varices: none Screenings EGD due 07/06 HCC due 06/05 Immunizations: Hep B due 07/05 Past Medical/Surgical History Medical Problems: (1) Altered mental status Status: Acute (2) CHF (congestive heart failure) Status: Acute (3) Diffuse abdominal pain Status: Acute (4) GI bleed Status: Chronic (5) Hepatic encephalopathy Status: Chronic (6) Hyperammonemia Status: Acute (7) Hyperammonemia Status: Acute (8) Hyperammonemia Status: Acute (9) Hypomagnesemia Status: Acute (10) Hypotension Status: Acute (11) Hypotension Status: Acute (12) Left sided chest pain Status: Acute (13) Lightheadedness Status: Acute (14) KLEIN (nonalcoholic steatohepatitis) Status: Chronic (15) Rectal bleeding Status: Acute (16) Renal insufficiency Status: Acute (17) Renal insufficiency Status: Acute (18) Substernal precordial chest pain Status: Acute (19) Substernal precordial chest pain Status: Acute (20) Thrombocytopenia Status: Acute Past Medical History: KLEIN cirrhosis, T2DM, CAD, hyperlipidemia, osteoarthritis, CHF Past Surgical History: EGD, colonoscopy, lumbar hemilaminectomy, surgical removal of hemorrhoid Family History FHx: heart disease FATHER ( from [place] age 65) BROTHER ([place] in his 40s) Social History Smoking Status: Former Smoker (quit 20 years ago) Alcohol Use: none Drug Use: none Housing Status: lives with family Occupation Status: retired Allergies Coded Allergies: PRASHANT Inhibitors (Verified Allergy, Severe, ANGIOEDEMA from 10/10/11 ED adm, 06/06/17) Lisinopril (Verified Allergy, Severe, Edema - face, lips and tongue, ) Simvastatin (Verified Allergy, Unknown, RASH, SORE ALL OVER. 2013: Uses Crestor, 06/06/17) Current Medications Home Meds and Scripts Medications Dose Route/Sig Max Daily Dose Days Date Category Dose Instructions Lactulose 30 Gm/45 Ml Syrp 30 Gm PO QID 30 04/28/17 Rx hold next dose if already had 2-3 bowel movement/day; resume the following day Folvite (Folic Acid) 1 Mg Tab 1 Mg PO DAILY 04/23/17 Reported Ventolin Hfa (Albuterol) 200 Puffs/06952 Mcg Aers 2 Puffs INH QID PRN 03/03/17 Reported Potassium Chloride Er (Potassium Chloride) 10 Meq Tab 20 Meq PO DAILY 03/03/17 Reported Novolog Flexpen (Insulin Aspart) 100 Units/Ml Inj 45 Units SC AC 03/03/17 Reported Jardiance (Empagliflozin) 10 Mg Tab 10 Mg PO QAM 07/03/16 Reported Ferrous Gluconate 324 Mg Tab 324 Mg PO BID 07/03/16 Reported Lantus Solostar (Insulin Glargine) 100 Unit/Ml Inj 45 Units SC AMPM 06/21/16 Reported Tamsulosin HCl 0.4 Mg Cap 0.4 Mg PO DAILY 05/30/16 Reported Pantoprazole Sodium (Pantoprazole) 40 Mg Tab 40 Mg PO BID 05/30/16 Reported Rosuvastatin Calcium 40 Mg Tab 40 Mg PO DAILY 05/30/16 Reported Furosemide 40 Mg Tab 40 Mg PO DAILY 05/30/16 Reported Losartan Potassium 25 Mg Tab 25 Mg PO DAILY 05/30/16 Reported Lopressor (Metoprolol Tartrate) 25 Mg Tab 25 Mg PO BID 05/30/16 Reported Imdur Ext Rel (Isosorbide Mononitrate) 30 Mg Tabcr 30 Mg PO QAM 05/30/16 Reported Xifaxan (Rifaximin) 550 Mg Tab 550 Mg PO BID 01/07/16 Reported Mag-Ox (Magnesium Oxide) 400 Mg Tab 400 Mg PO BID 01/07/16 Reported Nitrostat (Nitroglycerin) 0.4 Mg Tab 0.4 Mg UT UD PRN 10/10/[address] ONE TABLET UNDER THE TONGUE EVERY 5 MINUTES FOR UP TO 3 DOSES IF NEEDED FOR CHEST PAIN Review of Systems Constitutional: No fever, No chills Respiratory: No cough, No shortness of breath Cardiac: No chest pain Abdomen: No pain, No nausea, No vomiting, No diarrhea, No constipation, No GI bleeding Physical Exam Date Time Temp Pulse Resp B/P (MAP) Pulse Ox O2 Delivery O2 Flow Rate FiO2 06/08/17 08:03 36.7 74 18 120/63 (82) 93 Room Air 06/08/17 04:00 Room Air 06/08/17 03:30 36.9 71 18 146/72 (96) 97 Room Air 06/08/17 00:00 Room Air 06/07/17 23:05 37.2 78 18 111/65 (80) 94 Room Air 06/07/17 20:25 92 Room Air 06/07/17 20:00 36.9 76 16 96/44 (61) 93 06/07/17 16:14 36.7 76 16 109/65 (80) 92 06/07/17 16:06 Room Air 06/07/17 15:54 98 Room Air 06/07/17 15:50 36.5 76 20 99/60 (73) 98 Room Air 06/07/17 12:00 Room Air 06/07/17 11:15 36.6 66 13 123/64 (83) 95 Room Air 06/07/17 09:50 Room Air General Appearance: no apparent distress Eyes: PERRL ENT: hearing grossly normal Neck: supple Respiratory/Chest: lungs clear, normal breath sounds Cardiovascular: regular rate, rhythm, no edema Abdomen: normal bowel sounds, non tender, soft, no organomegaly Neurologic/Psych: alert, + pertinent finding (oriented to person, place, not time) Skin: normal color, warm/dry, no rash Laboratory Results Last 24 Hours Test 06/07/17 10:46 06/07/17 16:35 06/07/17 20:08 06/08/17 06:28 Bedside Glucose 189 mg/dl 170 mg/dl 185 mg/dl 81 mg/dl Impression Patient is a 76 year old male with KLEIN cirrhosis decompensated by hepatic encephalopathy. There is question of medication compliance - he is not taking xifaxan but is taking lactulose, ammonia was elevated to 152 --> 65. He is now on lactulose and xifaxan and is moving his bowels 2-3 times daily Plan - Titrate Lactulose to 30 QID to 2-4 BMs daily - Xifaxan BID - continue present medications - US abd for ascites - will need diagnostic tap to rule out SBP if fluid is present - consider additional work up for confusion per primary service ATTESTATION: I have performed a history and physical examination of this patient and reviewed the electronic record. Specifically, on physical examination there is no asterixis or confusion. I have discussed the case with MICHAEL Renee. The above note reflects my findings, conclusions, and recommendations. Benitez Hankins MD
--- NOTE | 2017-06-08 11:22 | DIAGNOSTIC IMAGING REPORT ---
ULTRASOUND ASCITES CHECK CLINICAL HISTORY: Cirrhosis. Change in mental status. COMPARISON STUDY: Abdominal CT dated 03/25/2017. FINDINGS: Real-time grayscale sonography of all 4 quadrants of the abdomen was performed to assess for abdominal ascites. No abdominal ascites is identified. Survey images of the liver show evidence of cirrhosis with heterogeneous hepatic echotexture and nodularity of the surface contour. The spleen is mildly enlarged measuring over 13 cm in length. IMPRESSION: 1. No abdominal ascites is identified. 2. Cirrhotic liver morphology and splenomegaly. Electronically signed by: Jamie Lunsford M.D. 06/08/2017 11:20 AM Dictated Date/Time: 06/08/2017 11:19 AM
[2017-06-08 13:54] LABS: BASO % 0.4 %; BASO ABS # 0.03 K/uL (0-0.2); COMPLETE YES; EOS % 1.5 %; HEMATOCRIT 32.1 % (42-52); IG% 0.8 %; LYMPH % 10.5 %; LYMPH ABS # 0.77 K/uL (1.2-3.4); MEAN CELL VOLUME 94.7 fL (80-100); MEAN CORPUSCULAR HEMOGLOBIN 29.8 pg (25-34); MEAN CORPUSCULAR HGB CONC 31.5 g/dl (32-36); MEAN PLATELET VOLUME 11.4 fL (7.4-10.4); MONO % 9.5 %; NEUT % 77.3 %; PLATELET COUNT 127 K/uL (130-400); RED BLOOD COUNT 3.39 M/uL (4.7-6.1)
[2017-06-08 14:18] LABS: BUN/CREATININE RATIO 24.1 (10-20); CALCIUM 9.4 mg/dl (8.5-10.1); CREATININE 1.1 mg/dl (0.60-1.40); POTASSIUM 4.2 mmol/L (3.5-5.1)
[2017-06-08] MEDS: ENOXAPARIN 40 MG/0.4 ML SYR SQ SCH (20:12)
[2017-06-08] MEDS ORDERED: BISACODYL 10 MG SUPP PR ONE (22:30)
[2017-06-08] MEDS ORDERED: BISACODYL 10 MG SUPP ONE (22:31)
--- NOTE | 2017-06-08 22:48 | Progress Note ---
Medicine Progress Note Date & Time of Visit: Jun 08, 2017 at 22:44. Subjective patient seen resting in bed, comfortable oriented x 2 answers questions appropriately, denies confusion no shortness of breath, cough denies other symptoms Objective Last 8 Hrs Date Time Temp Pulse Resp B/P (MAP) Pulse Ox O2 Delivery O2 Flow Rate FiO2 06/08/17 16:00 95 Room Air 06/08/17 15:54 36.8 74 20 125/71 (89) 95 Room Air Physical Exam: General- oriented x 3, not in distress, speaks in sentences with no effort Eyes-anicteric Neck- supple, no JVD Lungs- clear breath sounds bilaterally, no rales/wheezes Heart- regular rhythm; no murmur, normal rate Abdomen- normal bowel sounds, soft, nontender, no masses Extremities- no pretibial edema, no calf tenderness; peripheral pulses intact Neuro- alert, oriented x 2; no gross focal motor/sensory deficits Skin- warm & dry Laboratory Results: Last 24 Hours Test 06/08/17 06:28 06/08/17 11:23 06/08/17 13:48 Bedside Glucose 81 mg/dl 184 mg/dl White Blood Count 7.30 K/uL Red Blood Count 3.39 M/uL Hemoglobin 10.1 g/dL Hematocrit 32.1 % Mean Corpuscular Volume 94.7 fL Mean Corpuscular Hemoglobin 29.8 pg Mean Corpuscular Hemoglobin Concent 31.5 g/dl Platelet Count 127 K/uL Mean Platelet Volume 11.4 fL Neutrophils (%) (Auto) 77.3 % Lymphocytes (%) (Auto) 10.5 % Monocytes (%) (Auto) 9.5 % Eosinophils (%) (Auto) 1.5 % Basophils (%) (Auto) 0.4 % Neutrophils # (Auto) 5.64 K/uL Lymphocytes # (Auto) 0.77 K/uL Monocytes # (Auto) 0.69 K/uL Eosinophils # (Auto) 0.11 K/uL Basophils # (Auto) 0.03 K/uL RDW Standard Deviation 50.9 fL RDW Coefficient of Variation 14.8 % Immature Granulocyte % (Auto) 0.8 % Immature Granulocyte # (Auto) 0.06 K/uL Sodium Level 139 mmol/L Potassium Level 4.2 mmol/L Chloride Level 108 mmol/L Carbon Dioxide Level 23 mmol/L Anion Gap 8.0 mmol/L Blood Urea Nitrogen 27 mg/dl Creatinine 1.10 mg/dl Est Creatinine Clear Calc Drug Dose 50.8 ml/min Estimated GFR () 74.1 Estimated GFR (Non- 64.0 BUN/Creatinine Ratio 24.1 Random Glucose 209 mg/dl Calcium Level 9.4 mg/dl Ammonia 134.0 umol/L Assessment & Plan ALTERED MENTAL STATUS 2/2 hepatic encephalopathy; -- patient reports to me that he takes his lactulose 3x a day, also Rifaximin -- noted to be confused by family, brought to the ER ER workup included CT head- no acute findings, urine drug screen- negative Ammonia 150s -- Lactulose QID and Rifaximin resumed Ammonia improved to 60s -- GI Consulted Abdominal US: no ascites -- mental status continues to improve emphasized regular intake of Lactulose, Rifaximin HYPOTENSION- resolved Initial BP 76/43 in ER- > improved to 120s systolic with IVF's in ER, now running 90s systolic- will give another 500 mL IVF's Hold furosemide, metoprolol, losartan, imdur for now -- resume Metoprolol, Lasix when BP is stable LEUKOCYTOSIS (WBC 15K) Possibly secondary to possible Pneumonia, Bronchitis - presents with cough/ white sputum production x 1 week, portable CXR read as minimal hazy opacities at the lung bases, likely atelectasis Afebrile, no tachycardia, no tachypnea Start on empiric abx- ceftriaxone and azithromycin Check blood cultures, sputum culture: pending -- WBC resolved change Ceftri + Azithro to Doxycycline -- leukocytosis resolved LACTIC ACID ELEVATION Initial lactic acid 2.1 -> repeat - resolved MILD PROLONGED QT Check repeat EKG in am: 503 - stop Azithro improved AORTIC STENOSIS Echo 05/19/17 showed LV EF >70%, severe aortic valve stenosis CAD S/P STENT Continue statin and Imdur Beta wesly and losartan on hold for hypotension Not on aspirin- unclear reason, platelet count stable ASA restarted DM TYPE 2 Hold Jardiance Continue Lantus Novolog sliding scale BPH Continue Flomax DVT PROPHYLAXIS Lovenox SQ CODE STATUS Full no mech ventilation as per my discussion with Michael Quintero patient's son and POA ([phone]) DISPOSITION Lives alone, daughter in law Irena Quintero, his main caregiver, lives nearby Consult home health care social worker for discharge planning Current Inpatient Medications: Current Inpatient Medications Medications (Trade) Dose Ordered Sig/Suman Route Start Time Stop Time Status Last Admin Dose Admin Acetaminophen (Tylenol Tab) 650 mg Q4H PRN PO 06/06/17 19:00 07/06/17 18:59 Ondansetron HCl (Zofran Inj) 4 mg Q6H PRN IV 06/06/17 19:00 07/06/17 18:59 Albuterol (Ventolin Hfa Inhaler) 2 puffs QID PRN INH 06/06/17 19:15 07/06/17 19:14 Ferrous Gluconate (Ferrous Gluconate Tab) 324 mg BID PO 06/06/17 21:00 07/06/17 20:59 06/08/17 20:12 324 MG Folic Acid (Folvite Tab) 1 mg DAILY PO 06/07/17 09:00 07/07/17 08:59 06/08/17 08:18 1 MG Insulin Glargine (Lantus Vial) 45 units BID SC 06/06/17 21:00 07/06/17 20:59 06/08/17 20:17 45 UNITS Lactulose (Chronulac Syrup) 30 gm QID PO 06/06/17 21:00 07/06/17 20:59 06/08/17 20:12 30 GM Magnesium Oxide (Mag-Ox Tab) 400 mg BID PO 06/06/17 21:00 07/06/17 20:59 06/08/17 20:12 400 MG Nitroglycerin (Nitrostat Tab) 0.4 mg UD PRN UT 06/06/17 19:15 07/06/17 19:14 Pantoprazole Sodium (Protonix Tab) 40 mg BID PO 06/06/17 21:00 07/06/17 20:59 06/08/17 20:12 40 MG Rifaximin (Xifaxan Tab) 550 mg BID PO 06/06/17 21:00 07/06/17 20:59 06/08/17 20:12 550 MG Tamsulosin HCl (Flomax Cap) 0.4 mg DAILY PO 06/07/17 09:00 07/07/17 08:59 06/08/17 08:18 0.4 MG Rosuvastatin Calcium (Crestor Tab) 40 mg DAILY PO 06/07/17 09:00 07/07/17 08:59 06/08/17 08:19 40 MG Insulin Aspart (novoLOG ASPART) SLIDING SCALE If C... ACHS SC 06/06/17 21:00 07/06/17 20:59 06/08/17 17:33 4 UNITS Glucose (Glucose 40% Gel) 15-30 GRAMS 15 GRAMS... UD PRN PO 06/06/17 19:15 07/06/17 19:14 Glucose (Glucose Chew Tab) 4-8 Tablets 4 Tabl... UD PRN PO 06/06/17 19:15 07/06/17 19:14 Dextrose (Dextrose 50% 50ML Syringe) 25-50ML OF 50% DW IV FOR... UD PRN IV 06/06/17 19:15 07/06/17 19:14 Glucagon (Glucagon Inj) 1 mg UD PRN SQ 06/06/17 19:15 07/06/17 19:14 Enoxaparin Sodium (Lovenox Inj) 40 mg HS SQ 06/06/17 21:00 07/06/17 20:59 06/08/17 20:12 40 MG Aspirin (Ecotrin Tab) 81 mg QAM PO 06/07/17 09:00 07/07/17 08:59 06/08/17 08:18 81 MG Doxycycline Hyclate (Vibramycin Cap) 100 mg BID PO 06/07/17 20:00 06/14/17 19:59 06/08/17 20:12 100 MG
[2017-06-09 08:00] VITALS: BP 124/64; PULSE 70; TEMP 36.7; O2SAT 95
[2017-06-09] MEDS: FERROUS GLUCONATE 324 MG TAB PO SCH (08:09)
[2017-06-09] MEDS: ASPIRIN 81 MG ECTAB PO SCH (08:09)
[2017-06-09] MEDS: DOXYCYCLINE HYCLATE 100 MG CAP PO SCH ×2 (08:09→20:41)
[2017-06-09] MEDS: MAGNESIUM OXIDE 400 MG TAB PO SCH ×2 (08:09→20:42)
[2017-06-09] MEDS: PANTOprazole SOD 40 MG TAB PO SCH ×2 (08:09→20:41)
[2017-06-09] MEDS: RIFAXIMIN TAB 550 MG TAB PO SCH ×2 (08:09→20:42)
[2017-06-09] MEDS: ROSUVASTATIN CALCIUM 20 MG TAB PO SCH (08:09)
[2017-06-09] MEDS: TAMSULOSIN HCL 0.4 MG CAP PO SCH (08:10)
[2017-06-09] MEDS: LACTULOSE SYRUP 30 GM/45 ML UDP PO SCH ×4 (08:10→20:40)
[2017-06-09] MEDS: INSULIN ASPART 100 UNITS/ML 3 ML PEN SC SCH ×4 (08:14→20:48)
[2017-06-09] MEDS: INSULIN GLARGINE SC SCH ×2 (08:15→20:48)
--- NOTE | 2017-06-09 09:56 | Gastroenterology Progress Note ---
Progress Note Date of Service: Jun 09, 2017 Subjective Pt evaluation today including: conversation w/ patient, physical exam Pt seen and evaluated, chart reviewed. Needed suppository last night for BM. Denies confusion or mental fogging this AM. No complaints wants to go home. No fever, chills, CP, SOB, black or bloody stools. ABD US 06/08/17: No abdominal ascites is identified. Survey images of the liver show evidence of cirrhosis with heterogeneous hepatic echotexture and nodularity of the surface contour. The spleen is mildly enlarged measuring over 13 cm in length. Review of Systems Constitutional: No fever, No chills Respiratory: No cough, No shortness of breath Cardiac: No chest pain Abdomen: + constipation, No pain, No nausea, No vomiting, No diarrhea Medications Current Inpatient Medications Medications (Trade) Dose Ordered Sig/Suman Route Start Time Stop Time Status Last Admin Dose Admin Acetaminophen (Tylenol Tab) 650 mg Q4H PRN PO 06/06/17 19:00 07/06/17 18:59 Ondansetron HCl (Zofran Inj) 4 mg Q6H PRN IV 06/06/17 19:00 07/06/17 18:59 Albuterol (Ventolin Hfa Inhaler) 2 puffs QID PRN INH 06/06/17 19:15 07/06/17 19:14 Ferrous Gluconate (Ferrous Gluconate Tab) 324 mg BID PO 06/06/17 21:00 07/06/17 20:59 06/09/17 08:09 324 MG Folic Acid (Folvite Tab) 1 mg DAILY PO 06/07/17 09:00 07/07/17 08:59 06/09/17 08:09 1 MG Insulin Glargine (Lantus Vial) 45 units BID SC 06/06/17 21:00 07/06/17 20:59 06/09/17 08:15 45 UNITS Lactulose (Chronulac Syrup) 30 gm QID PO 06/06/17 21:00 07/06/17 20:59 06/09/17 08:10 30 GM Magnesium Oxide (Mag-Ox Tab) 400 mg BID PO 06/06/17 21:00 07/06/17 20:59 06/09/17 08:09 400 MG Nitroglycerin (Nitrostat Tab) 0.4 mg UD PRN UT 06/06/17 19:15 07/06/17 19:14 Pantoprazole Sodium (Protonix Tab) 40 mg BID PO 06/06/17 21:00 07/06/17 20:59 06/09/17 08:09 40 MG Rifaximin (Xifaxan Tab) 550 mg BID PO 06/06/17 21:00 07/06/17 20:59 06/09/17 08:09 550 MG Tamsulosin HCl (Flomax Cap) 0.4 mg DAILY PO 06/07/17 09:00 07/07/17 08:59 06/09/17 08:10 0.4 MG Rosuvastatin Calcium (Crestor Tab) 40 mg DAILY PO 06/07/17 09:00 07/07/17 08:59 06/09/17 08:09 40 MG Insulin Aspart (novoLOG ASPART) SLIDING SCALE If C... ACHS SC 06/06/17 21:00 07/06/17 20:59 06/09/17 08:14 2 UNITS Glucose (Glucose 40% Gel) 15-30 GRAMS 15 GRAMS... UD PRN PO 06/06/17 19:15 07/06/17 19:14 Glucose (Glucose Chew Tab) 4-8 Tablets 4 Tabl... UD PRN PO 06/06/17 19:15 07/06/17 19:14 Dextrose (Dextrose 50% 50ML Syringe) 25-50ML OF 50% DW IV FOR... UD PRN IV 06/06/17 19:15 07/06/17 19:14 Glucagon (Glucagon Inj) 1 mg UD PRN SQ 06/06/17 19:15 07/06/17 19:14 Enoxaparin Sodium (Lovenox Inj) 40 mg HS SQ 06/06/17 21:00 07/06/17 20:59 06/08/17 20:12 40 MG Aspirin (Ecotrin Tab) 81 mg QAM PO 06/07/17 09:00 07/07/17 08:59 06/09/17 08:09 81 MG Doxycycline Hyclate (Vibramycin Cap) 100 mg BID PO 06/07/17 20:00 06/14/17 19:59 06/09/17 08:09 100 MG Objective Vital Signs Date Time Temp Pulse Resp B/P (MAP) Pulse Ox O2 Delivery O2 Flow Rate FiO2 06/09/17 08:00 36.7 70 18 124/64 (84) 95 Room Air 06/09/17 08:00 95 Room Air 06/09/17 00:00 Room Air 06/08/17 23:14 36.9 87 20 121/64 (83) 92 Room Air 06/08/17 16:00 95 Room Air 06/08/17 15:54 36.8 74 20 125/71 (89) 95 Room Air 06/08/17 13:18 82 96 06/08/17 12:00 Room Air 06/08/17 11:28 36.6 78 20 122/68 (86) 96 Room Air Physical Exam General Appearance: no apparent distress Eyes: PERRL ENT: hearing grossly normal Neck: supple Respiratory/Chest: lungs clear, normal breath sounds Cardiovascular: regular rate, rhythm Abdomen: normal bowel sounds, non tender, soft Neurologic/Psych: alert, normal mood/affect, oriented x 3 Skin: normal color Laboratory Results Last 24 Hours Test 06/08/17 11:23 06/08/17 13:48 06/09/17 07:10 Bedside Glucose 184 mg/dl 97 mg/dl White Blood Count 7.30 K/uL Red Blood Count 3.39 M/uL Hemoglobin 10.1 g/dL Hematocrit 32.1 % Mean Corpuscular Volume 94.7 fL Mean Corpuscular Hemoglobin 29.8 pg Mean Corpuscular Hemoglobin Concent 31.5 g/dl Platelet Count 127 K/uL Mean Platelet Volume 11.4 fL Neutrophils (%) (Auto) 77.3 % Lymphocytes (%) (Auto) 10.5 % Monocytes (%) (Auto) 9.5 % Eosinophils (%) (Auto) 1.5 % Basophils (%) (Auto) 0.4 % Neutrophils # (Auto) 5.64 K/uL Lymphocytes # (Auto) 0.77 K/uL Monocytes # (Auto) 0.69 K/uL Eosinophils # (Auto) 0.11 K/uL Basophils # (Auto) 0.03 K/uL RDW Standard Deviation 50.9 fL RDW Coefficient of Variation 14.8 % Immature Granulocyte % (Auto) 0.8 % Immature Granulocyte # (Auto) 0.06 K/uL Sodium Level 139 mmol/L Potassium Level 4.2 mmol/L Chloride Level 108 mmol/L Carbon Dioxide Level 23 mmol/L Anion Gap 8.0 mmol/L Blood Urea Nitrogen 27 mg/dl Creatinine 1.10 mg/dl Est Creatinine Clear Calc Drug Dose 50.8 ml/min Estimated GFR () 74.1 Estimated GFR (Non- 64.0 BUN/Creatinine Ratio 24.1 Random Glucose 209 mg/dl Calcium Level 9.4 mg/dl Ammonia 134.0 umol/L Assessment and Plan Patient is a 76 year old male with KLEIN cirrhosis decompensated by hepatic encephalopathy. There is question of medication compliance - he is not taking xifaxan but is taking lactulose, ammonia was elevated to 152 --> 65. He is now on lactulose and xifaxan and is moving his bowels 2-3 times daily Plan - Titrate Lactulose to to 2-4 BMs daily - Xifaxan BID - Miralax 17 gm daily constipation - continue present medications GI to sign off. Please call with questions or concerns. Attg add: I intreviewed and examined pt, reviewed chart and labs. Pt with only small stool output, but o/w feels well. he denies confusion. His abd is mildly distended and tympanic, alhtough KUB does not show sig ileus. Will add stimulant laxatives and miralax to help improve laxation. OK for d/c home once he has a satisfactory BM. Please call with questions.
[2017-06-09] MEDS ORDERED: BISACODYL 10 MG SUPP PR PRN (12:45)
[2017-06-09] MEDS ORDERED: DOCUSATE SODIUM/SENNA 50/8.6MG TAB PO ONE (13:00)
--- NOTE | 2017-06-09 13:34 | DIAGNOSTIC IMAGING REPORT ---
KUB CLINICAL HISTORY: constipation; r/o obstruction, ileus pain COMPARISON STUDY: 03/30/2017 FINDINGS: Nonobstructive bowel pattern. Several calcifications at right abdominal flank unchanged. Linear metallic structure overlying left iliac wing unchanged in the prior exam. IMPRESSION: No acute process. Chronic change. Nonobstructive bowel pattern. The above report was generated using voice recognition software. It may contain grammatical, syntax or spelling errors. Electronically signed by: Hayden Gonzalez M.D. 06/09/2017 1:33 PM Dictated Date/Time: 06/09/2017 1:32 PM
[2017-06-09] MEDS ORDERED: BISACODYL 10 MG SUPP PR ONE (14:45)
[2017-06-09 14:57] VITALS: BP 136/73; PULSE 79; TEMP 36.7; O2SAT 94
[2017-06-09 16:00] VITALS: O2SAT 95
--- NOTE | 2017-06-09 17:54 | DIAGNOSTIC IMAGING REPORT ---
R KNEE 1 OR 2 VIEWS ROUTINE CLINICAL HISTORY: Right knee pain COMPARISON: 04/06/2014 DISCUSSION: No acute fractures are visualized. There are moderate osteoarthritic changes with progressive medial joint compartment narrowing. There is a small dorsal patellar spur. There is a 7 mm lucency involving the middle tibial subarticular surface. This could represent a small osteochondral defect, or degenerative cyst. There is equivocal trace joint effusion IMPRESSION: 1. Significant progression in the osteoarthritic changes with moderate medial joint compartment narrowing 2. 7 mm osteochondral defect versus degenerative cyst at the level of the medial tibial plateau 3. Equivocal trace joint effusion 4. No acute fractures Electronically signed by: Paulino Kat M.D. 06/09/2017 5:53 PM Dictated Date/Time: 06/09/2017 5:51 PM
--- NOTE | 2017-06-09 19:11 | Progress Note ---
Medicine Progress Note Date & Time of Visit: Jun 09, 2017 at 19:02. Subjective patient seen resting in bed, comfortable only had 1 BM today, small amount denies abdominal pain, nausea no confusion no other symptoms Objective Last 8 Hrs Date Time Temp Pulse Resp B/P (MAP) Pulse Ox O2 Delivery O2 Flow Rate FiO2 06/09/17 16:00 95 Room Air 06/09/17 14:57 36.7 79 20 136/73 (94) 94 Room Air Physical Exam: General- oriented x 3, not in distress, speaks in sentences with no effort Eyes-anicteric Neck- no JVD Lungs- clear BS bilaterally, no rales/wheezes Heart- regular rhythm; no murmur, normal rate Abdomen- normal bowel sounds, nondistended, soft, nontender Extremities- no pretibial edema, no calf tenderness Neuro- alert, oriented x 2; no gross focal motor/sensory deficits Skin- warm & dry Laboratory Results: Last 24 Hours Test 06/09/17 07:10 06/09/17 11:10 06/09/17 16:07 Bedside Glucose 97 mg/dl 234 mg/dl 163 mg/dl Date/Time Source Procedure Growth Status 06/09/17 15:30 Sputum Expectorated Sputum Gram Stain Pending Received 06/09/17 15:30 Sputum Expectorated Sputum Sputum Culture Pending Received Assessment & Plan ALTERED MENTAL STATUS 2/2 hepatic encephalopathy; -- patient reports to me that he takes his lactulose 3x a day, also Rifaximin -- noted to be confused by family, brought to the ER ER workup included CT head- no acute findings, urine drug screen- negative Ammonia 150s -- Lactulose QID and Rifaximin resumed Ammonia increasing but MS back to baseline -- GI Consulted Abdominal US: no ascites -- mental status continues to improve but seems to be constipated KUB no obstruction Lactulose increased to 5x a day, added Senokot S and PRN Dulcolax monitor response emphasized regular intake of Lactulose, Rifaximin HYPOTENSION- resolved Initial BP 76/43 in ER- > improved to 120s systolic with IVF's in ER, now running 90s systolic- will give another 500 mL IVF's -- resume Metoprolol, Lasix hold Losartan for now LEUKOCYTOSIS (WBC 15K) Possibly secondary to possible Pneumonia, Bronchitis - presents with cough/ white sputum production x 1 week, portable CXR read as minimal hazy opacities at the lung bases, likely atelectasis Afebrile, no tachycardia, no tachypnea Start on empiric abx- ceftriaxone and azithromycin Check blood cultures, sputum culture: pending -- WBC resolved change Ceftri + Azithro to Doxycycline -- leukocytosis resolved LACTIC ACID ELEVATION Initial lactic acid 2.1 -> repeat - resolved MILD PROLONGED QT Check repeat EKG in am: 503 - stop Azithro improved AORTIC STENOSIS Echo 05/19/17 showed LV EF >70%, severe aortic valve stenosis CAD S/P STENT Continue statin and Imdur Beta wesly and losartan on hold for hypotension Not on aspirin- unclear reason, platelet count stable ASA restarted DM TYPE 2 Hold Jardiance Continue Lantus Novolog sliding scale BPH Continue Flomax DVT PROPHYLAXIS Lovenox SQ CODE STATUS Full no mech ventilation as per my discussion with Michael Quintero patient's son and POA ([phone]) DISPOSITION Lives alone, daughter in law Irena Quintero, his main caregiver, lives nearby Consult social work program coordinator for discharge planning Current Inpatient Medications: Current Inpatient Medications Medications (Trade) Dose Ordered Sig/Suman Route Start Time Stop Time Status Last Admin Dose Admin Acetaminophen (Tylenol Tab) 650 mg Q4H PRN PO 06/06/17 19:00 07/06/17 18:59 Ondansetron HCl (Zofran Inj) 4 mg Q6H PRN IV 06/06/17 19:00 07/06/17 18:59 Albuterol (Ventolin Hfa Inhaler) 2 puffs QID PRN INH 06/06/17 19:15 07/06/17 19:14 Folic Acid (Folvite Tab) 1 mg DAILY PO 06/07/17 09:00 07/07/17 08:59 06/09/17 08:09 1 MG Insulin Glargine (Lantus Vial) 45 units BID SC 06/06/17 21:00 07/06/17 20:59 06/09/17 08:15 45 UNITS Lactulose (Chronulac Syrup) 30 gm QID PO 06/06/17 21:00 07/06/17 20:59 06/09/17 17:03 30 GM Magnesium Oxide (Mag-Ox Tab) 400 mg BID PO 06/06/17 21:00 07/06/17 20:59 06/09/17 08:09 400 MG Nitroglycerin (Nitrostat Tab) 0.4 mg UD PRN [place] 06/06/17 19:15 07/06/17 19:14 Pantoprazole Sodium (Protonix Tab) 40 mg BID PO 06/06/17 21:00 07/06/17 20:59 06/09/17 08:09 40 MG Rifaximin (Xifaxan Tab) 550 mg BID PO 06/06/17 21:00 07/06/17 20:59 06/09/17 08:09 550 MG Tamsulosin HCl (Flomax Cap) 0.4 mg DAILY PO 06/07/17 09:00 07/07/17 08:59 06/09/17 08:10 0.4 MG Rosuvastatin Calcium (Crestor Tab) 40 mg DAILY PO 06/07/17 09:00 07/07/17 08:59 06/09/17 08:09 40 MG Insulin Aspart (novoLOG ASPART) SLIDING SCALE If C... ACHS SC 06/06/17 21:00 07/06/17 20:59 06/09/17 17:05 6 UNITS Glucose (Glucose 40% Gel) 15-30 GRAMS 15 GRAMS... UD PRN PO 06/06/17 19:15 07/06/17 19:14 Glucose (Glucose Chew Tab) 4-8 Tablets 4 Tabl... UD PRN PO 06/06/17 19:15 07/06/17 19:14 Dextrose (Dextrose 50% 50ML Syringe) 25-50ML OF 50% DW IV FOR... UD PRN IV 06/06/17 19:15 07/06/17 19:14 Glucagon (Glucagon Inj) 1 mg UD PRN SQ 06/06/17 19:15 07/06/17 19:14 Enoxaparin Sodium (Lovenox Inj) 40 mg HS SQ 06/06/17 21:00 07/06/17 20:59 06/08/17 20:12 40 MG Aspirin (Ecotrin Tab) 81 mg QAM PO 06/07/17 09:00 07/07/17 08:59 06/09/17 08:09 81 MG Doxycycline Hyclate (Vibramycin Cap) 100 mg BID PO 06/07/17 20:00 06/14/17 19:59 06/09/17 08:09 100 MG Senna/Docusate Sodium (Senokot S Tab) 1 tab QAM PO 06/10/17 09:00 07/10/17 08:59 Bisacodyl (Dulcolax Supp) 10 mg DAILY PRN [place] 06/09/17 12:45 07/09/17 12:44
[2017-06-09 20:31] VITALS: BP 128/67; PULSE 74
[2017-06-09] MEDS: METOPROLOL TARTRATE 25 MG TAB PO SCH (20:41)
[2017-06-09] MEDS: ENOXAPARIN 40 MG/0.4 ML SYR SQ SCH (20:43)
[2017-06-10 00:17] VITALS: BP 145/75; PULSE 70; TEMP 36.3; O2SAT 97
[2017-06-10 08:00] VITALS: O2SAT 97
[2017-06-10 08:09] VITALS: BP 124/64; PULSE 60; TEMP 37; O2SAT 97
[2017-06-10] MEDS: ASPIRIN 81 MG ECTAB PO SCH (08:33)
[2017-06-10] MEDS: RIFAXIMIN TAB 550 MG TAB PO SCH (08:34)
[2017-06-10] MEDS: DOXYCYCLINE HYCLATE 100 MG CAP PO SCH (08:35)
[2017-06-10] MEDS: PANTOprazole SOD 40 MG TAB PO SCH (08:35)
[2017-06-10] MEDS: MAGNESIUM OXIDE 400 MG TAB PO SCH (08:35)
[2017-06-10] MEDS: METOPROLOL TARTRATE 25 MG TAB PO SCH (08:36)
[2017-06-10] MEDS: LACTULOSE SYRUP 30 GM/45 ML UDP PO SCH ×3 (08:36→17:13)
[2017-06-10] MEDS: TAMSULOSIN HCL 0.4 MG CAP PO SCH (08:36)
[2017-06-10] MEDS: ROSUVASTATIN CALCIUM 20 MG TAB PO SCH (08:38)
[2017-06-10] MEDS: INSULIN ASPART 100 UNITS/ML 3 ML PEN SC SCH ×3 (08:42→17:15)
[2017-06-10] MEDS: INSULIN GLARGINE SC SCH (08:42)
[2017-06-10] MEDS ORDERED: FUROSEMIDE 40 MG TAB PO SCH (09:00)
[2017-06-10] MEDS ORDERED: DOCUSATE SODIUM/SENNA 50/8.6MG TAB PO SCH (09:00)
--- NOTE | 2017-06-10 09:59 | Gastroenterology Progress Note ---
Progress Note Date of Service: Jun 10, 2017 Subjective Pt evaluation today including: conversation w/ patient, physical exam, chart review, lab review Pt seen and evaluated chart reviewed. KUB without obstruction but moderate fecal retention. Suppositories and senna added in addition to miralax, lactulose and xifaxan. Had four BMs overnight. Formed and brown. No BM this AM yet. Denies abdominal pain, no black or bloody stools. No report of mental fogging. Review of Systems Constitutional: No fever, No chills Respiratory: No cough, No shortness of breath Cardiac: No chest pain, No edema Abdomen: No pain, No nausea, No vomiting, No diarrhea, No constipation, No GI bleeding Medications Current Inpatient Medications Medications (Trade) Dose Ordered Sig/Suman Route Start Time Stop Time Status Last Admin Dose Admin Acetaminophen (Tylenol Tab) 650 mg Q4H PRN PO 06/06/17 19:00 07/06/17 18:59 Ondansetron HCl (Zofran Inj) 4 mg Q6H PRN IV 06/06/17 19:00 07/06/17 18:59 Albuterol (Ventolin Hfa Inhaler) 2 puffs QID PRN INH 06/06/17 19:15 07/06/17 19:14 Folic Acid (Folvite Tab) 1 mg DAILY PO 06/07/17 09:00 07/07/17 08:59 06/10/17 08:33 1 MG Insulin Glargine (Lantus Vial) 45 units BID SC 06/06/17 21:00 07/06/17 20:59 06/10/17 08:42 45 UNITS Lactulose (Chronulac Syrup) 30 gm QID PO 06/06/17 21:00 07/06/17 20:59 06/10/17 08:36 30 GM Magnesium Oxide (Mag-Ox Tab) 400 mg BID PO 06/06/17 21:00 07/06/17 20:59 06/10/17 08:35 400 MG Nitroglycerin (Nitrostat Tab) 0.4 mg UD PRN [place] 06/06/17 19:15 07/06/17 19:14 Pantoprazole Sodium (Protonix Tab) 40 mg BID PO 06/06/17 21:00 07/06/17 20:59 06/10/17 08:35 40 MG Rifaximin (Xifaxan Tab) 550 mg BID PO 06/06/17 21:00 07/06/17 20:59 06/10/17 08:34 550 MG Tamsulosin HCl (Flomax Cap) 0.4 mg DAILY PO 06/07/17 09:00 07/07/17 08:59 06/10/17 08:36 0.4 MG Rosuvastatin Calcium (Crestor Tab) 40 mg DAILY PO 06/07/17 09:00 07/07/17 08:59 06/10/17 08:38 40 MG Insulin Aspart (novoLOG ASPART) SLIDING SCALE If C... ACHS SC 06/06/17 21:00 07/06/17 20:59 06/10/17 08:42 3 UNITS Glucose (Glucose 40% Gel) 15-30 GRAMS 15 GRAMS... UD PRN PO 06/06/17 19:15 07/06/17 19:14 Glucose (Glucose Chew Tab) 4-8 Tablets 4 Tabl... UD PRN PO 06/06/17 19:15 07/06/17 19:14 Dextrose (Dextrose 50% 50ML Syringe) 25-50ML OF 50% DW IV FOR... UD PRN IV 06/06/17 19:15 07/06/17 19:14 Glucagon (Glucagon Inj) 1 mg UD PRN SQ 06/06/17 19:15 07/06/17 19:14 Enoxaparin Sodium (Lovenox Inj) 40 mg HS SQ 06/06/17 21:00 07/06/17 20:59 06/09/17 20:43 40 MG Aspirin (Ecotrin Tab) 81 mg QAM PO 06/07/17 09:00 07/07/17 08:59 06/10/17 08:33 81 MG Doxycycline Hyclate (Vibramycin Cap) 100 mg BID PO 06/07/17 20:00 06/14/17 19:59 06/10/17 08:35 100 MG Senna/Docusate Sodium (Senokot S Tab) 1 tab QAM PO 06/10/17 09:00 07/10/17 08:59 06/10/17 08:34 1 TAB Bisacodyl (Dulcolax Supp) 10 mg DAILY PRN [place] 06/09/17 12:45 07/09/17 12:44 06/09/17 19:09 10 MG Furosemide (Lasix Tab) 40 mg DAILY PO 06/10/17 09:00 07/10/17 08:59 06/10/17 08:34 40 MG Metoprolol Tartrate (Lopressor Tab) 25 mg BID PO 06/09/17 21:00 07/09/17 20:59 06/10/17 08:36 25 MG Objective Vital Signs Date Time Temp Pulse Resp B/P (MAP) Pulse Ox O2 Delivery O2 Flow Rate FiO2 06/10/17 08:09 37.0 60 18 124/64 (84) 97 Room Air 06/10/17 08:00 97 Room Air 06/10/17 00:17 36.3 70 22 145/75 (98) 97 Room Air 06/10/17 00:00 Room Air 06/09/17 20:31 74 128/67 (87) 06/09/17 16:00 95 Room Air 06/09/17 14:57 36.7 79 20 136/73 (94) 94 Room Air Physical Exam General Appearance: no apparent distress Eyes: PERRL ENT: hearing grossly normal Neck: supple Respiratory/Chest: lungs clear Cardiovascular: regular rate, rhythm Abdomen: normal bowel sounds, non tender, soft Neurologic/Psych: alert, normal mood/affect, oriented x 3 Laboratory Results Last 24 Hours Test 06/09/17 11:10 06/09/17 16:07 06/09/17 20:15 06/10/17 07:35 Bedside Glucose 234 mg/dl 163 mg/dl 188 mg/dl 72 mg/dl Assessment and Plan Patient is a 76 year old male with KLEIN cirrhosis decompensated by hepatic encephalopathy. There is question of medication compliance - he is not taking xifaxan but is taking lactulose, ammonia was elevated to 152 --> 65. He is now on lactulose and xifaxan and is moving his bowels 2-3 times daily. Became constipated with this regimen during admission, KUB with moderate retained stool , miralax, dulcolax PRN and sennas added to bowel regimen Plan - Titrate Lactulose to 30g QID to 2-4 BMs daily - Xifaxan BID - Miralax 17 gm daily constipation - PRN dulcolax - Senokot S PRN - continue other present medications GI to sign off. Please call with questions or concerns. ATTESTATION: I have performed a history and physical examination of this patient and reviewed the electronic record. Specifically, on physical examination abdomen is soft and non tender. I have discussed the case with MICHAEL Renee. The above note reflects my findings, conclusions, and recommendations. Benitez Hankins MD
[2017-06-10 13:55] VITALS: BP 124/64; PULSE 60; TEMP 37; O2SAT 97
[2017-06-10 15:12] VITALS: BP 112/65; PULSE 66; TEMP 36.7; O2SAT 97
--- NOTE | 2017-06-10 17:53 | Progress Note ---
Medicine Progress Note Date & Time of Visit: Jun 10, 2017 at 17:45. Subjective patient seen resting in bed, comfortable states he feels better today had 3 BMs today, moderate amounts denies abdominal pain, nausea/vomiting, confusion no other symptoms Objective Last 8 Hrs Date Time Temp Pulse Resp B/P (MAP) Pulse Ox O2 Delivery O2 Flow Rate FiO2 06/10/17 15:12 36.7 66 20 112/65 (81) 97 Room Air 06/10/17 13:55 37.0 60 18 97 Room Air Physical Exam: General- oriented x 3, not in distress, speaks in sentences with no effort Eyes-anicteric Lungs- clear BS BL , no rales/wheezes Heart- regular rhythm; no murmur, normal rate Abdomen- normal bowel sounds, nondistended, soft, nontender Extremities- no pretibial edema, no calf tenderness Neuro- alert, oriented x 2; no gross focal motor/sensory deficits Skin- warm & dry Laboratory Results: Last 24 Hours Test 06/09/17 20:15 06/10/17 07:35 06/10/17 11:05 06/10/17 16:12 Bedside Glucose 188 mg/dl 72 mg/dl 246 mg/dl 191 mg/dl Assessment & Plan ALTERED MENTAL STATUS SECONDARY TO HEPATIC ENCEPHALOPATHY -- patient reports to me that he takes his lactulose 3x a day, also Rifaximin -- noted to be confused by family, brought to the ER ER workup included CT head- no acute findings, urine drug screen- negative Ammonia 150s -- Lactulose QID and Rifaximin resumed Ammonia increasing but MS back to baseline -- GI Consulted Abdominal US: no ascites -- GI recommends to increase Lactulose to QID, add PRN Senokot S and Dulcolax suppository -- emphasized regular intake of Lactulose, Rifaximin and advised to take Senokot S and Dulcolax PRN advised to call PCP or return to ER immediately if with no BMs x 2 days HYPOTENSION - resolved Initial BP 76/43 in ER- > improved to 120s systolic with IVF's in ER -- resumed Metoprolol, Lasix Losartan and Imdur held -- BP stable monitor as outpatient LEUKOCYTOSIS (WBC 15K) Possibly secondary to possible Pneumonia, Bronchitis - presents with cough/ white sputum production x 1 week, portable CXR read as minimal hazy opacities at the lung bases, likely atelectasis Afebrile, no tachycardia, no tachypnea Started on empiric abx- ceftriaxone and azithromycin blood cultures, sputum culture: negative -- leukocytosis resolved change Ceftri + Azithro to Doxycycline -- symptoms improved continue Doxycycline 100mg BID x 2 more days to complete 7 day antibiotic course LACTIC ACID ELEVATION - Initial lactic acid 2.1 - Resolved MILD PROLONGED QT repeat EKG in am: 503 - stopped Azithro - improved AORTIC STENOSIS Echo 05/19/17 showed LV EF >70%, severe aortic valve stenosis CAD S/P STENT Continue statin and Imdur Not on aspirin- unclear reason, platelet count stable ASA restarted continue Losartan and Metoprolol DM TYPE 2 resume Jardiance Continue Lantus BPH Continue Flomax DVT PROPHYLAXIS Lovenox SQ given CODE STATUS Full no mech ventilation DISPOSITION d/c home with home health services ff up with PCP in 1 week Current Inpatient Medications: Current Inpatient Medications Medications (Trade) Dose Ordered Sig/Suman Route Start Time Stop Time Status Last Admin Dose Admin Acetaminophen (Tylenol Tab) 650 mg Q4H PRN PO 06/06/17 19:00 07/06/17 18:59 Ondansetron HCl (Zofran Inj) 4 mg Q6H PRN IV 06/06/17 19:00 07/06/17 18:59 Albuterol (Ventolin Hfa Inhaler) 2 puffs QID PRN INH 06/06/17 19:15 07/06/17 19:14 Folic Acid (Folvite Tab) 1 mg DAILY PO 06/07/17 09:00 07/07/17 08:59 06/10/17 08:33 1 MG Insulin Glargine (Lantus Vial) 45 units BID SC 06/06/17 21:00 07/06/17 20:59 06/10/17 08:42 45 UNITS Lactulose (Chronulac Syrup) 30 gm QID PO 06/06/17 21:00 07/06/17 20:59 06/10/17 17:13 30 GM Magnesium Oxide (Mag-Ox Tab) 400 mg BID PO 06/06/17 21:00 07/06/17 20:59 06/10/17 08:35 400 MG Nitroglycerin (Nitrostat Tab) 0.4 mg UD PRN [place] 06/06/17 19:15 07/06/17 19:14 Pantoprazole Sodium (Protonix Tab) 40 mg BID PO 06/06/17 21:00 07/06/17 20:59 06/10/17 08:35 40 MG Rifaximin (Xifaxan Tab) 550 mg BID PO 06/06/17 21:00 07/06/17 20:59 06/10/17 08:34 550 MG Tamsulosin HCl (Flomax Cap) 0.4 mg DAILY PO 06/07/17 09:00 07/07/17 08:59 06/10/17 08:36 0.4 MG Rosuvastatin Calcium (Crestor Tab) 40 mg DAILY PO 06/07/17 09:00 07/07/17 08:59 06/10/17 08:38 40 MG Insulin Aspart (novoLOG ASPART) SLIDING SCALE If C... ACHS SC 06/06/17 21:00 07/06/17 20:59 06/10/17 17:15 5 UNITS Glucose (Glucose 40% Gel) 15-30 GRAMS 15 GRAMS... UD PRN PO 06/06/17 19:15 07/06/17 19:14 Glucose (Glucose Chew Tab) 4-8 Tablets 4 Tabl... UD PRN PO 06/06/17 19:15 07/06/17 19:14 Dextrose (Dextrose 50% 50ML Syringe) 25-50ML OF 50% DW IV FOR... UD PRN IV 06/06/17 19:15 07/06/17 19:14 Glucagon (Glucagon Inj) 1 mg UD PRN SQ 06/06/17 19:15 07/06/17 19:14 Enoxaparin Sodium (Lovenox Inj) 40 mg HS SQ 06/06/17 21:00 07/06/17 20:59 06/09/17 20:43 40 MG Aspirin (Ecotrin Tab) 81 mg QAM PO 06/07/17 09:00 07/07/17 08:59 06/10/17 08:33 81 MG Doxycycline Hyclate (Vibramycin Cap) 100 mg BID PO 06/07/17 20:00 06/14/17 19:59 06/10/17 08:35 100 MG Senna/Docusate Sodium (Senokot S Tab) 1 tab QAM PO 06/10/17 09:00 07/10/17 08:59 06/10/17 08:34 1 TAB Bisacodyl (Dulcolax Supp) 10 mg DAILY PRN [place] 06/09/17 12:45 07/09/17 12:44 06/09/17 19:09 10 MG Furosemide (Lasix Tab) 40 mg DAILY PO 06/10/17 09:00 07/10/17 08:59 06/10/17 08:34 40 MG Metoprolol Tartrate (Lopressor Tab) 25 mg BID PO 06/09/17 21:00 07/09/17 20:59 06/10/17 08:36 25 MG
[2017-06-10] MEDS ORDERED: DXY100 PO (18:01)
[2017-06-10] MEDS ORDERED: ASPEC81 PO (18:01)
[2017-06-10] MEDS ORDERED: DLCS PR (18:01)
[2017-06-10] MEDS ORDERED: SENN8.6T7 PO (18:01)
--- NOTE | 2017-06-10 18:07 | Discharge Instructions ---
Discharge Instructions Date of Service Jun 10, 2017. Admission Reason for Admission: Altered Mental Status, Hepatic Encephalopthy Discharge Discharge Diagnosis / Problem: HEPATIC ENCEPHALOPATHY Discharge Goals Goal(s): Diagnostic testing, Therapeutic intervention Activity Recommendations Activity Limitations: as noted below (INCREASE ACTIVITY GRADUALLY TOLERATED) . Instructions / Follow-Up Instructions / Follow-Up PLEASE REVIEW YOUR NEW MEDICATION LIST AND FOLLOW INSTRUCTIONS CAREFULLY. IF CONSTIPATED, MAY TAKE SENOKOT S AND/OR DULCOLAX SUPPOSITORY. IF STILL WITHOUT BOWEL MOVEMENTS, CALL YOUR PRIMARY CARE PHYSICIAN OR RETURN TO ER IMMEDIATELY. CALL PRIMARY CARE PHYSICIAN OR RETURN TO ER IMMEDIATELY IF WITH RECURRENCE OR WORSENING OF SYMPTOMS. FOLLOW UP WITH PRIMARY CARE PHYSICIAN IN 1 WEEK (CLINIC WILL CALL YOU FOR THE APPOINTMENT SCHEDULE). Current Hospital Diet Patient's current hospital diet: AHA Diet (Heart Healthy), Diabetes Type 2 Diet Discharge Diet Recommended Diet: AHA Diet (Heart Healthy), Diabetes Type 2 Diet Procedures Procedures Performed: CT HEAD, ABDOMINAL US, KNEE XRAY Pending Studies Studies pending at discharge: no Laboratory Results Hemoglobin A1c Test 04/23/17 17:45 Range/Units Estimated Average Glucose 143 mg/dl Hemoglobin A1c 6.6 H 4.5-5.6 % Medical Emergencies . Who to Call and When: Medical Emergencies: If at any time you feel your situation is an emergency, please call 911 immediately. . Non-Emergent Contact Non-Emergency issues call your: Primary Care Provider Call Non-Emergent contact if: you have a fever, your pain is not controlled, your pain is worsening, you have any medication questions . . "Provider Documentation" section prepared by Ravinder Castro. . VTE Core Measure Inpt VTE Proph given/why not?: Enoxaparin (Lovenox)SQ
--- NOTE | 2017-06-13 07:18 | Discharge Summary ---
Discharge Summary Date of Service Jun 13, 2017. Discharge Summary Admission Date: Jun 06, 2017 at 18:23 Discharge Date: Jun 10, 2017 Discharge Disposition: Home with services Principal Diagnosis: ALTERED MENTAL STATUS SECONDARY TO HEPATIC ENCEPHALOPATHY Secondary Diagnoses/Problems: Please refer to hospital course below. Procedures: HEAD WITHOUT CONTRAST (CT) CLINICAL HISTORY: 76 years-old Male presenting with confusion. TECHNIQUE: Multidetector CT imaging of the head was performed without the use of intravenous contrast. IV contrast: None. A dose lowering technique was used consistent with the principles of ALARA (as low as reasonably achievable). COMPARISON: 04/23/2017. CT DOSE (mGy.cm): The estimated cumulative dose is 795.47 mGy.cm. FINDINGS: [place] [employer] topogram: Unremarkable. Ventricles and sulci normal in size. Brain parenchyma normal in appearance with preserved olmstead-white differentiation. No mass effect or midline shift. No hemorrhage or acute territorial infarct. No extra-axial fluid collection. Paranasal sinuses and mastoid air cells clear. Calvarium intact. IMPRESSION: 1. No acute intracranial pathology. HEAD WITHOUT CONTRAST (CT) CLINICAL HISTORY: 76 years-old Male presenting with confusion. TECHNIQUE: Multidetector CT imaging of the head was performed without the use of intravenous contrast. IV contrast: None. A dose lowering technique was used consistent with the principles of ALARA (as low as reasonably achievable). COMPARISON: 04/23/2017. CT DOSE (mGy.cm): The estimated cumulative dose is 795.47 mGy.cm. FINDINGS: [place] [employer] topogram: Unremarkable. Ventricles and sulci normal in size. Brain parenchyma normal in appearance with preserved olmstead-white differentiation. No mass effect or midline shift. No hemorrhage or acute territorial infarct. No extra-axial fluid collection. Paranasal sinuses and mastoid air cells clear. Calvarium intact. IMPRESSION: 1. No acute intracranial pathology. Consultations: Gastroenterology Pending Studies/Follow-Up: Please refer to hospital course below. Medication Reconciliation New Medications: Aspirin (Aspirin EC Low Dose) 81 Mg Ectab 81 MG PO QAM for 30 Days, #30 TABS 1 Refill Bisacodyl (Bisac-Evac) 10 Mg Supp 10 MG ND DAILY PRN for Constipation for 30 Days, #15 SUPP 2 Refills Doxycycline Hyclate (Doxycycline Hyclate) 100 Mg Cap 100 MG PO BID for 2 Days, #4 CAP 0 Refills Sennosides-Docusate Sodium (Senokot S) 1 Tab Tab 1 TAB PO DAILY PRN for Constipation for 30 Days, #15 TAB 2 Refills Continued Medications: Albuterol Hfa (Ventolin Hfa) 200 Puffs/84338 Mcg Aers 2 PUFFS INH QID PRN for Cough Empagliflozin (Jardiance) 10 Mg Tab 10 MG PO QAM Ferrous Gluconate (Ferrous Gluconate) 324 Mg Tab 324 MG PO BID Folic Acid (Folvite) 1 Mg Tab 1 MG PO DAILY Furosemide (Furosemide) 40 Mg Tab 40 MG PO DAILY Insulin Aspart (Novolog Flexpen) 100 Units/Ml Inj 45 UNITS SC AC Insulin Glargine (Lantus Solostar) 100 Unit/Ml Inj 45 UNITS SC AMPM Lactulose (Lactulose) 30 Gm/45 Ml Syrp 30 GM PO QID for 30 Days, #5400 ML 1 Refill hold next dose if already had 2-3 bowel movement/day; resume the following day Magnesium Oxide (Mag-Ox) 400 Mg Tab 400 MG PO BID Metoprolol Tartrate (Lopressor) 25 Mg Tab 25 MG PO BID Nitroglycerin (Nitrostat) 0.4 Mg Tab 0.4 MG UT UD PRN for Chest Pain PLACE ONE TABLET UNDER THE TONGUE EVERY 5 MINUTES FOR UP TO 3 DOSES IF NEEDED FOR CHEST PAIN Pantoprazole (Pantoprazole Sodium) 40 Mg Tab 40 MG PO BID Potassium Chloride (Potassium Chloride Er) 10 Meq Tab 20 MEQ PO DAILY Rifaximin (Xifaxan) 550 Mg Tab 550 MG PO BID Rosuvastatin Calcium (Rosuvastatin Calcium) 40 Mg Tab 40 MG PO DAILY Tamsulosin HCl (Tamsulosin HCl) 0.4 Mg Cap 0.4 MG PO DAILY Discontinued Medications: Isosorbide Mononitrate Ext Rel (Imdur Ext Rel) 30 Mg Tabcr 30 MG PO QAM Losartan Potassium (Losartan Potassium) 25 Mg Tab 25 MG PO DAILY Admission Information HPI (per Admitting provider): This is a 76 year old male with PMH of KLEIN cirrhosis, history of hepatic encephalopathy, DM type 2, CAD s/p stenting, HTN, severe , CKD, chronic anemia , and other problems listed below who presents to the ED with altered mental status. Pt's family reports of confusion and hallucinations for past few days. Family unsure if patient is taking meds for past few days as patient lives alone. Pt reports feeling asymptomatic at present. He is currently oriented to person and place, but disoriented to date. He admits to cough with white sputum x 1 week with associated rhinorrhea. He reports chronic MAN with ambulating which is unchanged. Reports episode of epigastric pain last night attributed to his hiatal hernia which resolved. Has chronic loose BM 2-3x daily. States stool has been black in color for some time. He is on iron supplement. Had frequent urination yesterday which resolved. He denies recent fever, chills, chest pain, N/V, appetite loss, hematochezia, dysuria, rash, wounds, [place], neck pain, dizziness, vision change, speech difficulty, focal weakness or numbness. Cyndi recent medication change. Physical Exam (per Admitting): General Appearance: WD/WN, no apparent distress Head: normocephalic, atraumatic Eyes: normal inspection, EOMI, + pertinent finding (right pupil reactive to light. left pupil mildly abnormal shape, nonreactive to light. ) ENT: hearing grossly normal, pharynx normal Neck: supple, trachea midline Respiratory/Chest: normal breath sounds, no respiratory distress, no accessory muscle use, + rales (right base) Cardiovascular: regular rate, rhythm, no murmur Abdomen/GI: normal bowel sounds, non tender, soft Extremities/Musculoskelatal: no calf tenderness, no pedal edema Neurologic/Psych: alert, normal mood/affect, + pertinent finding (oriented to person and place, disoriented to month/year, unable to correctly name president. speech is clear. facial movements symmetric. no motor or sensory deficit of extremities. ) Skin: normal color, warm/dry Hospital Course ALTERED MENTAL STATUS SECONDARY TO HEPATIC ENCEPHALOPATHY -- patient reports that he takes his lactulose 3x a day, also Rifaximin -- noted to be confused by family, brought to the ER ER workup included CT head- no acute findings, urine drug screen- negative Ammonia 150s -- Lactulose QID and Rifaximin resumed Ammonia increasing but MS back to baseline -- GI Consulted ordered Abdominal US: no ascites recommends to increase Lactulose to QID, add PRN Senokot S and Dulcolax suppository -- emphasized regular intake of Lactulose, Rifaximin and advised to take Senokot S and Dulcolax PRN advised to call PCP or return to ER immediately if with no BMs x 2 days HYPOTENSION - resolved Initial BP 76/43 in ER- > improved to 120s systolic with IVF's in ER -- resumed Metoprolol, Lasix Losartan and Imdur held -- BP stable off Losartan and Imdur monitor BP as outpatient LEUKOCYTOSIS (WBC 15K) Possibly secondary to possible Pneumonia, Bronchitis - presents with cough/ white sputum production x 1 week, portable CXR read as minimal hazy opacities at the lung bases, likely atelectasis Afebrile, no tachycardia, no tachypnea Started on empiric abx- ceftriaxone and azithromycin blood cultures, sputum culture: negative -- leukocytosis resolved change Ceftri + Azithro to Doxycycline -- symptoms improved continue Doxycycline 100mg BID x 2 more days to complete 7 day antibiotic course LACTIC ACID ELEVATION - Initial lactic acid 2.1 - Resolved MILD PROLONGED QT repeat EKG in am: 503 - stopped Azithro - improved AORTIC STENOSIS Echo 05/19/17 showed LV EF >70%, severe aortic valve stenosis CAD S/P STENT Continue statin and Imdur Not on aspirin- unclear reason, platelet count stable ASA restarted continue Losartan and Metoprolol DM TYPE 2 resume Jardiance Continue Lantus BPH Continue Flomax DISPOSITION d/c home with home health services ff up with PCP in 1 week Total time spent on discharge = 35 minutes This includes examination of the patient, discharge planning, medication reconciliation, and communication with other providers. Discharge Instructions Discharge Instructions Date of Service Jun 10, 2017. Admission Reason for Admission: Altered Mental Status, Hepatic Encephalopthy Discharge Discharge Diagnosis / Problem: HEPATIC ENCEPHALOPATHY Discharge Goals Goal(s): Diagnostic testing, Therapeutic intervention Activity Recommendations Activity Limitations: as noted below (INCREASE ACTIVITY GRADUALLY TOLERATED) . Instructions / Follow-Up Instructions / Follow-Up PLEASE REVIEW YOUR NEW MEDICATION LIST AND FOLLOW INSTRUCTIONS CAREFULLY. IF CONSTIPATED, MAY TAKE SENOKOT S AND/OR DULCOLAX SUPPOSITORY. IF STILL WITHOUT BOWEL MOVEMENTS, CALL YOUR PRIMARY CARE PHYSICIAN OR RETURN TO ER IMMEDIATELY. CALL PRIMARY CARE PHYSICIAN OR RETURN TO ER IMMEDIATELY IF WITH RECURRENCE OR WORSENING OF SYMPTOMS. FOLLOW UP WITH PRIMARY CARE PHYSICIAN IN 1 WEEK (CLINIC WILL CALL YOU FOR THE APPOINTMENT SCHEDULE). Current Hospital Diet Patient's current hospital diet: AHA Diet (Heart Healthy), Diabetes Type 2 Diet Discharge Diet Recommended Diet: AHA Diet (Heart Healthy), Diabetes Type 2 Diet Procedures Procedures Performed: CT HEAD, ABDOMINAL US, KNEE XRAY Pending Studies Studies pending at discharge: no Laboratory Results Hemoglobin A1c Test 04/23/17 17:45 Range/Units Estimated Average Glucose 143 mg/dl Hemoglobin A1c 6.6 H 4.5-5.6 % Medical Emergencies . Who to Call and When: Medical Emergencies: If at any time you feel your situation is an emergency, please call 911 immediately. . Non-Emergent Contact Non-Emergency issues call your: Primary Care Provider Call Non-Emergent contact if: you have a fever, your pain is not controlled, your pain is worsening, you have any medication questions . . "Provider Documentation" section prepared by Ravinder Castro. . VTE Core Measure Inpt VTE Proph given/why not?: Enoxaparin (Lovenox)SQ
== END 2017-06-10 18:37 | disposition home health service (06) | DRG 441 ==
LOC: C.EDB 14:22 → C.2T 18:23 → ENRESERV 19:03 → C.MS2W 06-08 15:45
PROVIDERS: ADMIT Hospitalist; ATTEND Internal Medicine
DX: K72.90 Hepatic failure, unspecified without coma (principal); J18.9 Pneumonia, unspecified organism; J40 Bronchitis, not specified as acute or chronic; K75.81 Nonalcoholic steatohepatitis (NASH); K74.60 Unspecified cirrhosis of liver; I95.9 Hypotension, unspecified; D72.829 Elevated white blood cell count, unspecified; R74.0 Nonspecific elevation of levels of transaminase and lactic acid dehydrogenase [LDH]; I45.81 Long QT syndrome; I35.0 Nonrheumatic aortic (valve) stenosis; I25.10 Atherosclerotic heart disease of native coronary artery without angina pectoris; E11.22 Type 2 diabetes mellitus with diabetic chronic kidney disease; N40.0 Benign prostatic hyperplasia without lower urinary tract symptoms; D64.9 Anemia, unspecified; I12.9 Hypertensive chronic kidney disease with stage 1 through stage 4 chronic kidney disease, or unspecified chronic kidney disease; N18.9 Chronic kidney disease, unspecified; E78.5 Hyperlipidemia, unspecified; K59.00 Constipation, unspecified; Z91.14 Patient's other noncompliance with medication regimen; Z95.5 Presence of coronary angioplasty implant and graft; Z87.891 Personal history of nicotine dependence; Z79.2 Long term (current) use of antibiotics; Z79.4 Long term (current) use of insulin; Z79.899 Other long term (current) drug therapy; Z88.8 Allergy status to other drugs, medicaments and biological substances; Z82.49 Family history of ischemic heart disease and other diseases of the circulatory system

== ENCOUNTER 2020-01-13 21:50 | Inpatient (IN) ==
[2020-01-13] MEDS ORDERED: SODIUM CHLORIDE 0.9% 500 ML IV ONE (22:03)
--- NOTE | 2020-01-13 22:11 | Emergency Department Note ---
History of Present Illness General Chief complaint: Altered Mental Status Time Seen by Provider: 01/13/20 21:56 Source: patient and EMS Mode of arrival: EMS Limitations: no limitations History of Present Illness This patient was brought in by EMS after his family had not heard from him yesterday and he was apparently found on the floor. His blood sugar was low and they gave him glucose it came up he still seem confused. He is alert to person and place and mostly the date here and answers questions appropriately. He denies any pain anywhere. He denies any headache. He says he was only on the floor for a brief amount of time. Denies focal numbness or weakness. Denies abdominal pain or dysuria. He tells me is been taking his medications as directed. No chest pain or shortness of breath. Denies fever or chills or exposure to COVID patients .denies any COVID symptom Home Medications Home Medications Medication Instructions Recorded Confirmed Type Lantus Solostar U-100 Insulin 45 unit SUBCUT BID 01/14/19 01/13/20 History empagliflozin 25 mg PO DAILY 01/14/19 01/13/20 History ferrous gluconate 324 mg PO BID 01/14/19 01/13/20 History folic acid 1 mg PO DAILY 01/14/19 01/13/20 History insulin aspart U-100 [Novolog 45 unit SUBCUT TIDM 01/14/19 01/13/20 History Flexpen U-100 Insulin] metoprolol tartrate 25 mg PO BID 01/14/19 01/13/20 History pantoprazole 40 mg PO BID 01/14/19 01/13/20 History potassium chloride 20 meq PO DAILY 01/14/19 01/13/20 History rifaximin 550 mg PO BID 01/14/19 01/13/20 History tamsulosin 0.4 mg PO DAILY 01/14/19 01/13/20 History albuterol sulfate [Ventolin HFA] 2 puff INHALATION Q4H PRN 02/20/19 01/13/20 History fluticasone propionate [Flonase 1 spray INTRANASAL DAILY 02/20/19 01/13/20 Hi story Allergy Relief] furosemide [Lasix] 20 mg PO DAILY 02/20/19 01/13/20 History lactulose 45 ml PO QID 02/20/19 01/13/20 History magnesium oxide 400 mg PO BID 02/20/19 01/13/20 History nitroglycerin 0.4 mg SUBLINGUAL UD PRN 02/20/19 01/13/20 History dextromethorphan-guaifenesin 5 ml PO Q4H PRN 01/13/20 01/13/20 History ipratropium-albuterol 3 ml INHALATION QID 01/13/20 01/13/20 History Allergies Allergy/AdvReac Type Severity Reaction Status Date / Time PRASHANT Inhibitors Allergy Severe ANGIOEDEMA Verified 01/13/20 22:22 from 10/10/11 ED adm lisinopril Allergy Severe Edema - Verified 01/13/20 22:22 face, lips and tongue simvastatin Allergy Unknown RASH, SORE Verified 01/13/20 22:22 ALL OVER. 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) CKD (chronic kidney disease), stage III (Chronic) Diabetes mellitus type 2 in obese (Chronic) Diverticulosis (Chronic) Dyslipidemia (Chronic) GERD (gastroesophageal reflux disease) (Chronic) Hepatic encephalopathy (Chronic) Hiatal hernia (Chronic) HTN (hypertension) (Chronic) Osteoarthritis Portal hypertensive gastropathy (Chronic) Transaminitis (Chronic) Surgical History H/O hemorrhoidectomy (Resolved) History of cardiac catheterization (Resolved) NO STENTS History of colonoscopy (Resolved) History of lumbar laminectomy (Resolved) History of tooth extraction Family History Son Family history of diabetes mellitus Family/Other Family hx of colon cancer Social History Preferred Language: [employer] Required: No Beliefs That Will Affect Care: None Current Living Situation: Alone Feels Safe at Home: Yes Smoking Status: Former smoker Tobacco Type: cigarettes ; Second Hand Exposure: Yes ; Hx Alcohol Use: No Hx Substance Use: No Review of Systems A total of 10 systems reviewed and were otherwise negative Physical Exam Vital Signs Vital Signs - 24 hr 01/13/20 22:04 01/13/20 22:14 01/13/20 22:45 Temperature 36.6 C Temperature Source Oral Pulse Rate 76 75 Pulse Rate [Apical] 70 Pulse Rate from SpO2 Sensor 69 Respiratory Rate 18 16 Respiratory Effort / Characteristics Respiratory Depth Blood Pressure 178/70 H 123/57 L Blood Pressure [Right Arm] 123/57 L Blood Pressure Mean 106 75 Blood Pressure Mean [Right Arm] 79 Blood Pressure Position [Right Arm] Pulse Oximetry 97 97 96 Oxygen Delivery Method Room Air Room Air Room Air Sepsis Recent Fever Within 48 Hours No Sepsis New/Unexplained Change in Mental Status No Sepsis Action Taken by Nursing No Action Required 01/13/20 23:00 01/13/20 23:28 01/13/20 23:30 Temperature Temperature Source Pulse Rate 71 69 Pulse Rate [Apical] 67 Pulse Rate from SpO2 Sensor 72 69 Respiratory Rate 14 24 18 Respiratory Effort / Characteristics Non-Labored Respiratory Depth Normal Blood Pressure 127/76 146/61 H Blood Pressure [Right Arm] 146/61 H Blood Pressure Mean 94 90 Blood Pressure Mean [Right Arm] 89 Blood Pressure Position [Right Arm] Sitting Pulse Oximetry 97 97 97 Oxygen Delivery Method Room Air Sepsis Recent Fever Within 48 Hours Sepsis New/Unexplained Change in Mental Status Sepsis Action Taken by Nursing 01/14/20 00:00 01/14/20 00:16 01/14/20 00:45 Temperature Temperature Source Pulse Rate 80 80 73 Pulse Rate [Apical] Pulse Rate from SpO2 Sensor 80 83 Respiratory Rate 20 26 H 17 Respiratory Effort / Characteristics Respiratory Depth Blood Pressure 128/72 147/73 H 125/55 L Blood Pressure [Right Arm] Blood Pressure Mean 81 94 84 Blood Pressure Mean [Right Arm] Blood Pressure Position [Right Arm] Pulse Oximetry 96 95 Oxygen Delivery Method Sepsis Recent Fever Within 48 Hours Sepsis New/Unexplained Change in Mental Status Sepsis Action Taken by Nursing 01/14/20 01:00 01/14/20 01:15 01/14/20 01:24 Temperature Temperature Source Pulse Rate 74 73 Pulse Rate [Apical] Pulse Rate from SpO2 Sensor 73 Respiratory Rate 19 17 Respiratory Effort / Characteristics Respiratory Depth Blood Pressure 125/59 L 124/54 L Blood Pressure [Right Arm] Blood Pressure Mean 98 78 Blood Pressure Mean [Right Arm] Blood Pressure Position [Right Arm] Pulse Oximetry 97 Oxygen Delivery Method Room Air Sepsis Recent Fever Within 48 Hours Sepsis New/Unexplained Change in Mental Status Sepsis Action Taken by Nursing General: Well developed well nourished older male who is alert and oriented x2 with partial date and appears in no acute distress, breathing comfortably on room air. Normal speech HEENT: Normal cephalic atraumatic. Pupils are equal round and reactive to light. Extraocular movements are intact. Oropharynx is pink with moist mucous membranes. No swelling of the mouth lips or tongue. Neck: Supple with a midline trachea. No meningeal signs or stiffness, no JVD or bruits. No Stridor. Chest: Clear to auscultation bilaterally. No wheezes or rhonchi. No increased work of breathing. Heart: Regular rate and rhythm without murmurs or gallops. Abdomen: Soft nontender, nondistended without rebound guarding or rigidity. Extremities: No cyanosis clubbing. Trace to 1+ bilateral lower extremity edema. No calf tenderness or assymetry Spine/Back. Non tender to palpation. No CVA tenderness Skin: Good turgor without rashes. Neurologic exam: Cranial nerves two through 12 are intact. Motor and sensation are intact and symmetrical throughout. He does have some tremor with movement of his arms Course Administered Medications Pantoprazole Sodium 40 mg/ (Dextrose) 100 mls @ 20 mls/hr IV Q5H GOSIA Stop: 02/13/20 00:14 Last Admin: 01/14/20 00:54 Dose: 20 mls/hr Documented by: [id number] Discontinued Medications Sodium Chloride (Nss) 500 mls @ 999 mls/hr IV .Q31M ONE Stop: 01/13/20 22:33 Last Infusion: 01/14/20 00:33 Dose: 0 mls/hr Documented by: [id number] Admin: 01/13/20 23:28 Dose: 999 mls/hr Documented by: [id number] Pantoprazole Sodium 80 mg/ (Dextrose) 120 mls @ 400 mls/hr IV NOW ONE Stop: 01/14/20 00:29 Last Infusion: 01/14/20 00:54 Dose: 0 mls/hr Documented by: [id number] Admin: 01/14/20 00:34 Dose: 400 mls/hr Documented by: [id number] Ceftriaxone Sodium (Rocephin) 1,000 mg in 50 mls @ 100 mls/hr IV NOW STA Stop: 01/14/20 00:42 Last Infusion: 01/14/20 01:04 Dose: 0 mls/hr Documented by: [id number] Admin: 01/14/20 00:33 Dose: 100 mls/hr Documented by: [id number] Lactulose (Chronulac) 30 gm PO NOW STA Stop: 01/14/20 00:13 Last Admin: 01/14/20 00:33 Dose: 30 gm Documented by: [id number] Medical Decision Making Differential Diagnosis Differential diagnosis includes but is not limited to: Hypoglycemia, liver failure, medication side effect, sepsis, neurologic disease, rhabdomyolysis, electrolyte or metabolic abnormality, UTI, cardiac disease or arrhythmia Medical Records Attestation: I reviewed the patient's medical records. Home Medications Current Medication List: was personally reviewed by me Laboratory Data Attestation: I reviewed the patient's lab results. Result diagrams: 01/13/20 22:48 01/13/20 22:48 Lab Results 01/13/20 01/13/20 01/13/20 Range/Units 21:57 22:48 22:48 WBC 4.50 L (4.8-10.8) K/uL RBC 4.42 L (4.7-6.1) M/uL Hgb 13.8 L (14.0-18.0) g/dL Hct 40.3 L (42-52) % MCV 91.2 (80-100) fL MCH 31.2 (25-34) pg MCHC 34.2 (32-36) g/dL RDW Std Deviation 54.0 H (36.4-46.3) fL RDW Coeff of Adrian 16.4 H (11.5-14.5) % Plt Count 64 L (130-400) K/uL MPV 10.7 H (7.4-10.4) fL Immature Gran % (Auto) 0.2 % Neut % (Auto) 67.9 % Lymph % (Auto) 17.6 % Mcmullen % (Auto) 11.8 % Eos % (Auto) 1.8 % Baso % (Auto) 0.7 % Immature Gran # (Auto) 0.01 (0.00-0.02) K/uL Neut # (Auto) 3.06 (1.4-6.5) K/uL Lymph # (Auto) 0.79 L (1.2-3.4) K/uL Mcmullen # (Auto) 0.53 (0.11-0.59) K/uL Eos # (Auto) 0.08 (0-0.5) K/uL Baso # (Auto) 0.03 (0-0.2) K/uL PT 12.2 H (9.0-12.0) Seconds INR 1.2 H (0.9-1.1) APTT 29.6 (21.0-31.0) Seconds PTT Ratio 1.1 Sodium (136-145) mmol/L Potassium (3.5-5.1) mmol/L Chloride (98-107) mmol/L Carbon Dioxide (21-32) mmol/L Anion Gap (3-11) BUN (7-18) mg/dl Creatinine (0.6-1.4) mg/dl Est Cr Clr Drug Dosing ml/min Est GFR ( Amer) Est GFR (Non-Af Amer) BUN/Creatinine Ratio (10-20) Glucose (70-99) mg/dl POC Glucose 175 H (70-99) mg/dl Lactate (0.4-2.0) mmol/L Calcium (8.5-10.1) mg/dl Magnesium (1.8-2.4) mg/dl Total Bilirubin (0.2-1) mg/dl AST (15-37) U/L ALT (12-78) U/L Alkaline Phosphatase (45-117) U/L Ammonia (11-32) umol/L Total Creatine Kinase (39-308) U/L CK-MB (CK-2) (0.5-3.6) ng/ml CK/CKMB % Calc (0-3.0) Total Protein (6.4-8.2) gm/dl Albumin (3.4-5.0) gm/dl Globulin (2.5-4.0) gm/dl Albumin/Globulin Ratio (0.9-2) TSH (0.300-4.500) uIu/ml Urine Color Urine Appearance (Clear) Urine pH (4.5-7.5) Ur Specific [place] (1.000-1.030) Urine Protein (Negative) Urine Glucose (UA) (Negative) Urine Ketones (Negative) Urine Blood (Negative) Urine Nitrite (Negative) Urine Bilirubin (Negative) Urine Urobilinogen (Negative) Ur Leukocyte Esterase (Negative) Urine WBC (Auto) (0-5) /hpf Urine RBC (Auto) (0-4) /hpf U Hyaline Cast (Auto) (0-5) /lpf U Epithel Cells (Auto) (0-5) /lpf Urine Bacteria (Auto) (Negative) 01/13/20 01/13/20 01/13/20 Range/Units 22:48 22:48 22:48 WBC (4.8-10.8) K/uL RBC (4.7-6.1) M/uL Hgb (14.0-18.0) g/dL Hct (42-52) % MCV (80-100) fL MCH (25-34) pg MCHC (32-36) g/dL RDW Std Deviation (36.4-46.3) fL RDW Coeff of Adrian (11.5-14.5) % Plt Count (130-400) K/uL MPV (7.4-10.4) fL Immature Gran % (Auto) % Neut % (Auto) % Lymph % (Auto) % Mcmullen % (Auto) % Eos % (Auto) % Baso % (Auto) % Immature Gran # (Auto) (0.00-0.02) K/uL Neut # (Auto) (1.4-6.5) K/uL Lymph # (Auto) (1.2-3.4) K/uL Mcmullen # (Auto) (0.11-0.59) K/uL Eos # (Auto) (0-0.5) K/uL Baso # (Auto) (0-0.2) K/uL PT (9.0-12.0) Seconds INR (0.9-1.1) APTT (21.0-31.0) Seconds PTT Ratio Sodium 143 (136-145) mmol/L Potassium 4.0 (3.5-5.1) mmol/L Chloride 110 H (98-107) mmol/L Carbon Dioxide 26 (21-32) mmol/L Anion Gap 7.0 (3-11) BUN 17 (7-18) mg/dl Creatinine 1.49 H (0.6-1.4) mg/dl Est Cr Clr Drug Dosing 35.6 ml/min Est GFR ( Amer) 50.3 Est GFR (Non-Af Amer) 43.4 BUN/Creatinine Ratio 11.5 (10-20) Glucose 130 H (70-99) mg/dl POC Glucose (70-99) mg/dl Lactate 2.0 (0.4-2.0) mmol/L Calcium 9.0 (8.5-10.1) mg/dl Magnesium 2.4 (1.8-2.4) mg/dl Total Bilirubin 0.8 (0.2-1) mg/dl AST 131 H (15-37) U/L ALT 61 (12-78) U/L Alkaline Phosphatase 187 H (45-117) U/L Ammonia 60.6 H (11-32) umol/L Total Creatine Kinase 838 H (39-308) U/L CK-MB (CK-2) 5.2 H (0.5-3.6) ng/ml CK/CKMB % Calc 0.6 (0-3.0) Total Protein 6.3 L (6.4-8.2) gm/dl Albumin 3.0 L (3.4-5.0) gm/dl Globulin 3.3 (2.5-4.0) gm/dl Albumin/Globulin Ratio 0.9 (0.9-2) TSH 2.830 (0.300-4.500) uIu/ml Urine Color Urine Appearance (Clear) Urine pH (4.5-7.5) Ur Specific [place] (1.000-1.030) Urine Protein (Negative) Urine Glucose (UA) (Negative) Urine Ketones (Negative) Urine Blood (Negative) Urine Nitrite (Negative) Urine Bilirubin (Negative) Urine Urobilinogen (Negative) Ur Leukocyte Esterase (Negative) Urine WBC (Auto) (0-5) /hpf Urine RBC (Auto) (0-4) /hpf U Hyaline Cast (Auto) (0-5) /lpf U Epithel Cells (Auto) (0-5) /lpf Urine Bacteria (Auto) (Negative) 01/13/20 01/13/20 01/14/20 Range/Units 22:48 23:31 00:26 WBC (4.8-10.8) K/uL RBC (4.7-6.1) M/uL Hgb (14.0-18.0) g/dL Hct (42-52) % MCV (80-100) fL MCH (25-34) pg MCHC (32-36) g/dL RDW Std Deviation (36.4-46.3) fL RDW Coeff of Adrian (11.5-14.5) % Plt Count (130-400) K/uL MPV (7.4-10.4) fL Immature Gran % (Auto) % Neut % (Auto) % Lymph % (Auto) % Mcmullen % (Auto) % Eos % (Auto) % Baso % (Auto) % Immature Gran # (Auto) (0.00-0.02) K/uL Neut # (Auto) (1.4-6.5) K/uL Lymph # (Auto) (1.2-3.4) K/uL Mcmullen # (Auto) (0.11-0.59) K/uL Eos # (Auto) (0-0.5) K/uL Baso # (Auto) (0-0.2) K/uL PT (9.0-12.0) Seconds INR (0.9-1.1) APTT (21.0-31.0) Seconds PTT Ratio Sodium (136-145) mmol/L Potassium (3.5-5.1) mmol/L Chloride (98-107) mmol/L Carbon Dioxide (21-32) mmol/L Anion Gap (3-11) BUN (7-18) mg/dl Creatinine (0.6-1.4) mg/dl Est Cr Clr Drug Dosing ml/min Est GFR ( Amer) Est GFR (Non-Af Amer) BUN/Creatinine Ratio (10-20) Glucose (70-99) mg/dl POC Glucose 115 H 128 H (70-99) mg/dl Lactate (0.4-2.0) mmol/L Calcium (8.5-10.1) mg/dl Magnesium (1.8-2.4) mg/dl Total Bilirubin (0.2-1) mg/dl AST (15-37) U/L ALT (12-78) U/L Alkaline Phosphatase (45-117) U/L Ammonia (11-32) umol/L Total Creatine Kinase (39-308) U/L CK-MB (CK-2) (0.5-3.6) ng/ml CK/CKMB % Calc (0-3.0) Total Protein (6.4-8.2) gm/dl Albumin (3.4-5.0) gm/dl Globulin (2.5-4.0) gm/dl Albumin/Globulin Ratio (0.9-2) TSH (0.300-4.500) uIu/ml Urine Color Yellow Urine Appearance Clear (Clear) Urine pH 5.0 (4.5-7.5) Ur Specific [place] 1.021 (1.000-1.030) Urine Protein Negative (Negative) Urine Glucose (UA) 3+ H (Negative) Urine Ketones Negative (Negative) Urine Blood Negative (Negative) Urine Nitrite Negative (Negative) Urine Bilirubin Negative (Negative) Urine Urobilinogen Negative (Negative) Ur Leukocyte Esterase Trace H (Negative) Urine WBC (Auto) 1-5 (0-5) /hpf Urine RBC (Auto) 0-4 (0-4) /hpf U Hyaline Cast (Auto) 1-5 (0-5) /lpf U Epithel Cells (Auto) 0-5 (0-5) /lpf Urine Bacteria (Auto) Negative (Negative) Imaging Data Attestation: I personally reviewed and interpreted this imaging study as follows: My Impression: Chest x-ray: No acute infiltrate, failure, pneumothorax seen on my interpretation at looking at the x-ray Radiologist's Impression: Chest x-ray: Atelectasis without any acute findings. Please refer to report Head CT: ECG Data Attestation: I personally reviewed and interpreted this ECG as follows: Indication: + syncope Rate (beats per minute): 71 Rhythm: + normal sinus and + other (Poor baseline.) ECG Intervals/blocks: + Normal QRS, + Normal QT and + Normal SC ECG [place]: + Normal ECG Findings: + Poor R wave progression and + Other (Nonspecific T wave abnorma lity. Poor R wave progression); no PACs and no PVCs Comparison ECG Date: from (01/14/19) Change: no significant change Blood Pressure Blood Pressure Findings: Normal blood pressure Blood Pressure Disposition: did not require urgent referral MDM Narrative This patient comes in as described above. He was found on the ground with a low blood sugar. This was corrected and despite this he seemed confused. He has no external signs of trauma or complaints. He does have a history of diabetes as well as liver disease and heart disease as well as valvular heart disease. IV acess was established and he was given a 500 cc IV normal saline bolus multiple blood testing was obtained evaluated from an infectious cardiac and other etiology symptoms this additionally included ammonia level. I did a CAT scan of his head as well and a chest x-ray and EKG. He was reassessed frequently. His blood sugar upon arrival was 175. Chest x-ray was unremarkable. EKG was also unremarkable and shows no ischemic changes or ectopy seen. His CK is up a little bit and he may have some mild rhabdo or could just be from falling. His ammonia is also mildly elevated at 60 and he could have some mild hepatic encephalopathy. He may have fallen or passed out from his aortic stenosis. He was given additional IV hydration as I do think he is mildly dehydrated. He has tolerated this well. CAT scan of his head is unremarkable without any acute findings. I do think he needs to be admitted/observed. We did recheck his blood sugar and it was in the 100s and stable. He was hungry and was given a turkey sandwich as well. I did consult Dr. Day to see him in the emergency department. Continuous cardiac monitoring: An order was placed for continuous equipment monitor phototypesetting and the patient was placed on the monitor. He was noted to be in normal sinus rhythm rate of 65 per my interpretation. He was placed on a monitor given his hypoglycemia and concern for altered mental status Impression & Plan Altered mental state, Diabetes mellitus type 2 in obese, Aortic stenosis, Cirrhosis of liver not due to alcohol, Hypoglycemia, Elevated CK, Acute dehydration Discharge Plan Visit Data Chief Complaint: Altered Mental Status ED Provider: [place] Discharge Problem: Altered mental state, Diabetes mellitus type 2 in obese, Aortic stenosis, Cirrhosis of liver not due to alcohol, Hypoglycemia, Elevated CK, Acute dehydration Patient Disposition: Admitted As Inpatient Discharge Instructions Interventions: ED Discharge Assessment Last Done: 01/14/20 01:24 Forms Stand Alone Forms: My [facility] Prescriptions Prescriptions: No Action potassium chloride 10 mEq Capsule, Extended Release 20 meq PO DAILY RF: 0 tamsulosin 0.4 mg capsule 0.4 mg PO DAILY RF: 0 pantoprazole 40 mg tablet,delayed release (DR/EC) 40 mg PO BID RF: 0 folic acid 1 mg tablet 1 mg PO DAILY RF: 0 insulin aspart U-100 [Novolog Flexpen U-100 Insulin] 100 unit/mL (3 mL) insulin pen 45 unit subcut TIDM RF: 0 metoprolol tartrate 25 mg tablet 25 mg PO BID RF: 0 ferrous gluconate 324 mg (38 mg iron) Tablet 324 mg PO BID RF: 0 Lantus Solostar U-100 Insulin 100 unit/mL (3 mL) insulin pen 45 unit subcut BID RF: 0 rifaximin 550 mg Tablet 550 mg PO BID RF: 0 empagliflozin 25 mg Tablet 25 mg PO DAILY RF: 0 nitroglycerin 0.4 mg Tablet, Sublingual 0.4 mg sublingual UD PRN (Reason: Chest Pain) RF: 0 furosemide [Lasix] 20 mg Tablet 20 mg PO DAILY RF: 0 albuterol sulfate [Ventolin HFA] 90 mcg/actuation Hfa Aerosol Inhaler 2 puff INHALATION Q4H PRN (Reason: SHORT OF BREATH) RF: 0 fluticasone propionate [Flonase Allergy Relief] 50 mcg/actuation Allison,Suspension 1 spray INTRANASAL DAILY RF: 0 lactulose 10 gram/15 mL (15 mL) Solution 45 ml PO QID RF: 0 magnesium oxide 400 mg magnesium Tablet 400 mg PO BID RF: 0 ipratropium-albuterol 0.5 mg-3 mg(2.5 mg base)/3 mL Solution For Nebulization 3 ml INHALATION QID RF: 0 dextromethorphan-guaifenesin 10-100 mg/5 mL Liquid 5 ml PO Q4H PRN (Reason: Cough) RF: 0 Referrals Referrals: Duglas Evans MD [Primary Care Provider] - Discharge Problem: Altered mental state Qualifiers: Altered mental status type: unspecified Qualified Code(s): R41.82 - Altered mental status, unspecified Aortic stenosis Qualifiers: Cardiac valve disease etiology: etiology unspecified Qualified Code(s): I35.0 - Nonrheumatic aortic (valve) stenosis
--- NOTE | 2020-01-13 22:22 | XRay Report ---
XR chest 1V portable CLINICAL HISTORY: SEPSIS dyspnea COMPARISON STUDY: 01/14/2019 FINDINGS: Mild stable cardiomegaly. Improved aeration of the lung bases compared to the prior exam. M inimal residual atelectatic change. Mid and upper lungs are clear. IMPRESSION: Minimal bibasilar atelectasis. Otherwise negative study. ACT 112: Negative or not required by law. The above report was generated using voice recognition software. It may contain grammatical, syntax or spelling errors. Electronically signed by: Hayden Gonzalez M.D. 01/13/2020 10:21 PM
[2020-01-13 23:03] LABS: Appearance Urine Clear (Clear); Bacteria Urine Automated Negative (Negative); Bilirubin Urine Negative (Negative); Blood Urine Negative (Negative); Color Urine Yellow; Epithelial Cell Urine Auto 0-5 /lpf (0-5); Glucose Urine UA 3+ (Negative); Hematocrit (blood only) 40.3 % (42-52); Hemoglobin 13.8 g/dL (14.0-18.0); Ketones Urine Negative (Negative); Leukocyte Esterase Urine Trace (Negative); Mean Corpuscular Hemoglobin 31.2 pg (25-34); Mean Corpuscular Hgb Conc 34.2 g/dL (32-36); Mean Corpuscular Volume 91.2 fL (80-100); Nitrite Urine Negative (Negative); Protein Urine Negative (Negative); RBC Urine Automated 0-4 /hpf (0-4); RDW Coefficient of Variation 16.4 % (11.5-14.5); Red Blood Count 4.42 M/uL (4.7-6.1); Specific Gravity Urine 1.021 (1.000-1.030); Urobilinogen Urine Negative (Negative)
[2020-01-13 23:11] LABS: INR 1.2 (0.9-1.1); Partial Thromboplastin Ratio 1.1; Partial Thromboplastin Time 29.6 Seconds (21.0-31.0); Prothrombin Time 12.2 Seconds (9.0-12.0)
[2020-01-13 23:18] LABS: BUN Creatinine Ratio 11.5 (10-20); Creatinine Clr Calc Pharmacy 35.6 ml/min; Est GFR (African American) 50.3; Est GFR (Non-African American) 43.4; Magnesium 2.4 mg/dl (1.8-2.4)
[2020-01-13 23:23] LABS: Albumin Globulin Ratio 0.9 (0.9-2); Bilirubin,Total 0.8 mg/dl (0.2-1); Creatine Kinase MB 5.2 ng/ml (0.5-3.6); Globulin 3.3 gm/dl (2.5-4.0); Total Protein 6.3 gm/dl (6.4-8.2)
[2020-01-13 23:43] LABS: Basophils # (auto) 0.03 K/uL (0-0.2); Basophils % (auto) 0.7 %; Eosinophils # (auto) 0.08 K/uL (0-0.5); Eosinophils % (auto) 1.8 %; Immature Granulocytes # (auto) 0.01 K/uL (0.00-0.02); Immature Granulocytes % (auto) 0.2 %; Lymphocytes # (auto) 0.79 K/uL (1.2-3.4); Lymphocytes % (auto) 17.6 %; Mean Platelet Volume 10.7 fL (7.4-10.4); Monocytes # (auto) 0.53 K/uL (0.11-0.59); Monocytes % (auto) 11.8 %; Neutrophils # (auto) 3.06 K/uL (1.4-6.5); Neutrophils % (auto) 67.9 %; Platelet Count 64 K/uL (130-400)
[2020-01-14 00:09] LABS: Thyroid Stimulating Hormone 2.83 uIu/ml (0.300-4.500)
[2020-01-14] MEDS ORDERED: PANTOPRAZOLE BOLUS/DRIP 1 EA IV STA (00:12)
[2020-01-14] MEDS ORDERED: PANTOprazole 80 MG in DEXTROSE 5% 100 ML IV ONE (00:12)
[2020-01-14] MEDS ORDERED: LACTULOSE SYRUP 20 GM/30 ML UDC PO STA (00:12)
[2020-01-14] MEDS ORDERED: cefTRIAXone SODIUM 1,000 MG/50 ML BAG IV STA (00:13)
--- NOTE | 2020-01-14 00:13 | History & Physical Report ---
Date of Service January 14, 2020 Assessment & Plan (1) Encephalopathy: Multifactorial : Hepatic encephalopathy possibly precipitated by UGIB, hx NAFLD cirrhosis Hypoglycemic episode at home, DM2 insulin requiring, suboptimal control as of recent outpatient hemoglobin A1c of 8.25 May 2019 ARF on CRI Anemia secondary to UGI B hx CAD sp stenting HTN, stable hx aortic stenosis status post AVR, past tobacco abuse Medical telemetry Facilitate lactulose and rifaximin IV PPI IV ceftriaxone for SBP prophylaxis in a cirrhotic patient with ongoing U GIB GI consult RE hepatic encephalopathy, U GIB Trend H&H, transfuse PRBC if hemoglobin less than 8 and or for symptomatic anemia Hold basal insulin for now, ISS BG goal [id number], update hemoglobin A1c Monitor creatinine sponsor IV fluids, hold home diuretics for now DVT prophylaxis. SCDs RE U GIB PT OT eval DNR as per the patient's prior wishes as per [id number], Ms. Irena Quintero. She requests updates from providers thru [phone]. Text document was generated using [employer] voice recognition software. It may contain grammatical or spelling errors. Kindly contact undersigned for clarification of any documentation item in question. History of Present Illness Chief Complaint: I don't know as per patient Primary Care Provider: Duglas Evans MD History obtained from patient, family, and records. Limited history from patient secondary to disorientation. Medical history significant for cirrhosis secondary to nonalcoholic fatty liver disease, DM2, insulin requiring, CAD sp stenting, HTN, severe aortic stenosis status post AVR, chronic renal insufficiency (baseline creatinine of 1.3), past tobacco abuse. Recent confinement May 2017 for hepatic encephalopathy. Patient found by family members on the floor at his home today. Patient noted to be disoriented. Does not recall falling. Denies chest pain, S OB. Denies abdominal pain, unusual abdominal distention. Black stools for some time now as per patient. BSG noted to be 50s at home. Patient given juice and peanut butter by family. Patient brought to the ER for evaluation. MEDICAL HISTORY: As above. 2018 EGD showed portal hypertensive gastropathy; Colonoscopy showed diverticulosis, polyp, internal hemorrhoids SURGERIES: Hemorrhoidectomy, back surgery. Aortic valve replacement FAMILY HISTORY: Heart disease. Diabetes, stroke PERSONAL AND SOCIAL HISTORY: Past tobacco abuse. No chronic intake of alcoholic beverages. 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 Allergies Allergy/AdvReac Type Severity Reaction Status Date / Time PRASHANT Inhibitors Allergy Severe ANGIOEDEMA Verified 01/13/20 22:22 from 10/10/11 ED adm lisinopril Allergy Severe Edema - Verified 01/13/20 22:22 face, lips and tongue simvastatin Allergy Unknown RASH, SORE Verified 01/13/20 22:22 ALL OVER. 2013: Uses Crestor Home Medications Home Medications Medication Instructions Recorded Confirmed Type Lantus Solostar U-100 Insulin 45 unit SUBCUT BID 01/14/19 01/13/20 History empagliflozin 25 mg PO DAILY 01/14/19 01/13/20 History ferrous gluconate 324 mg PO BID 01/14/19 01/13/20 History folic acid 1 mg PO DAILY 01/14/19 01/13/20 History insulin aspart U-100 [Novolog 45 unit SUBCUT TIDM 01/14/19 01/13/20 History Flexpen U-100 Insulin] metoprolol tartrate 25 mg PO BID 01/14/19 01/13/20 History pantoprazole 40 mg PO BID 01/14/19 01/13/20 History potassium chloride 20 meq PO DAILY 01/14/19 01/13/20 History rifaximin 550 mg PO BID 01/14/19 01/13/20 History tamsulosin 0.4 mg PO DAILY 01/14/19 01/13/20 History albuterol sulfate [Ventolin HFA] 2 puff INHALATION Q4H PRN 02/20/19 01/13/20 History fluticasone propionate [Flonase 1 spray INTRANASAL DAILY 02/20/19 01/13/20 History Allergy Relief] furosemide [Lasix] 20 mg PO DAILY 02/20/19 01/13/20 History lactulose 45 ml PO QID 02/20/19 01/13/20 History magnesium oxide 400 mg PO BID 02/20/19 01/13/20 History nitroglycerin 0.4 mg SUBLINGUAL UD PRN 02/20/19 01/13/20 History dextromethorphan-guaifenesin 5 ml PO Q4H PRN 01/13/20 01/13/20 History ipratropium-albuterol 3 ml INHALATION QID 01/13/20 01/13/20 History Past Med/Surg History Medical History Anemia (Chronic) Anxiety Aortic stenosis (Chronic) "severe on echo 04/2017" On 07/03/16 17:13 Cande Poon wrote "severe on echo 04/2016" CAD (coronary artery disease) (Chronic) "2009 - RCA stent 2012 - RCA stent restenosis, s/p AMOS to RCA" 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) CKD (chronic kidney disease), stage III (Chronic) Diabetes mellitus type 2 in obese (Chronic) Diverticulosis (Chronic) Dyslipidemia (Chronic) GERD (gastroesophageal reflux disease) (Chronic) Hepatic encephalopathy (Chronic) Hiatal hernia (Chronic) HTN (hypertension) (Chronic) Osteoarthritis Portal hypertensive gastropathy (Chronic) Transaminitis (Chronic) Surgical History H/O hemorrhoidectomy (Resolved) History of cardiac catheterization (Resolved) NO STENTS History of colonoscopy (Resolved) History of lumbar laminectomy (Resolved) History of tooth extraction Family History Son Family history of diabetes mellitus Family/Other Family hx of colon cancer Social History Preferred Language: Colombian Communication Ability: Effective Automotive 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 Required: No Beliefs That Will Affect Care: None Current Living Situation: Alone Feels Safe at Home: Yes Smoking Status: Former smoker Tobacco Type: cigarettes ; Smoking End Date: 20- 25 years ago ; Second Hand Exposure: Yes ; Hx Alcohol Use: No Hx Substance Use: No Review of Systems Review of Systems: Could not be reliably obtained Physical Exam Physical Exam: GENERAL: Comfortable, disoriented, slightly hard of hearing, obese, no respiratory distress SKIN: Normal color, warm HEENT: [place] palpebral conjunctivae, no ptosis, dry buccal mucosa NECK : Supple, short neck, no tenderness CHEST : Decreased breath sounds , no tenderness HEART : RRR, no obvious murmurs ABDOMEN: Some distention, nontender RECTAL : Intact sphincter, black stool (FOBT positive ) EXTREMITIES : No LE swelling/tenderness, no other conspicuous deformities noted NEUROLOGIC : Coherent, disoriented, slightly hard of hearing, no other gross focality Results & Data Results & Data ([facility]) Vital Signs (Past 12 Hours) Vital Signs Temp Pulse Pulse Resp BP BP Pulse Ox 01/13/20 23:28 67 24 146/61 H 97 01/13/20 22:45 70 17 123/57 L 97 01/13/20 22:14 97 01/13/20 22:04 36.6 C 76 18 178/70 H 97 Laboratory Results Laboratory Results WBC 4.50 K/uL (4.8-10.8) L 01/13/20 22:48 RBC 4.42 M/uL (4.7-6.1) L 01/13/20 22:48 Hgb 13.8 g/dL (14.0-18.0) L 01/13/20 22:48 Hct 40.3 % (42-52) L 01/13/20 22:48 MCV 91.2 fL (80-100) 01/13/20 22:48 MCH 31.2 pg (25-34) 01/13/20 22:48 MCHC 34.2 g/dL (32-36) 01/13/20 22:48 RDW Std Deviation 54.0 fL (36.4-46.3) H 01/13/20 22:48 RDW Coeff of Adrian 16.4 % (11.5-14.5) H 01/13/20 22:48 Plt Count 64 K/uL (130-400) L 01/13/20 22:48 MPV 10.7 fL (7.4-10.4) H 01/13/20 22:48 Immature Gran % (Auto) 0.2 % 01/13/20 22:48 Neut % (Auto) 67.9 % 01/13/20 22:48 Lymph % (Auto) 17.6 % 01/13/20 22:48 Maries % (Auto) 11.8 % 01/13/20 22:48 Eos % (Auto) 1.8 % 01/13/20 22:48 Baso % (Auto) 0.7 % 01/13/20 22:48 Immature Gran # (Auto) 0.01 K/uL (0.00-0.02) 01/13/20 22:48 Neut # (Auto) 3.06 K/uL (1.4-6.5) 01/13/20 22:48 Lymph # (Auto) 0.79 K/uL (1.2-3.4) L 01/13/20 22:48 Maries # (Auto) 0.53 K/uL (0.11-0.59) 01/13/20 22:48 Eos # (Auto) 0.08 K/uL (0-0.5) 01/13/20 22:48 Baso # (Auto) 0.03 K/uL (0-0.2) 01/13/20 22:48 PT 12.2 Seconds (9.0-12.0) H 01/13/20 22:48 INR 1.2 (0.9-1.1) H 01/13/20 22:48 APTT 29.6 Seconds (21.0-31.0) 01/13/20 22:48 PTT Ratio 1.1 01/13/20 22:48 Sodium 143 mmol/L (136-145) 01/13/20 22:48 Potassium 4.0 mmol/L (3.5-5.1) 01/13/20 22:48 Chloride 110 mmol/L (98-107) H 01/13/20 22:48 Carbon Dioxide 26 mmol/L (21-32) 01/13/20 22:48 Anion Gap 7.0 (3-11) 01/13/20 22:48 BUN 17 mg/dl (7-18) 01/13/20 22:48 Creatinine 1.49 mg/dl (0.6-1.4) H 01/13/20 22:48 Est Cr Clr Drug Dosing 35.6 ml/min 01/13/20 22:48 Est GFR ( Amer) 50.3 01/13/20 22:48 Est GFR (Non-Af Amer) 43.4 01/13/20 22:48 BUN/Creatinine Ratio 11.5 (10-20) 01/13/20 22:48 Glucose 130 mg/dl (70-99) H 01/13/20 22:48 POC Glucose 115 mg/dl (70-99) H 01/13/20 23:31 Lactate 2.0 mmol/L (0.4-2.0) 01/13/20 22:48 Calcium 9.0 mg/dl (8.5-10.1) 01/13/20 22:48 Magnesium 2.4 mg/dl (1.8-2.4) 01/13/20 22:48 Total Bilirubin 0.8 mg/dl (0.2-1) 01/13/20 22:48 AST 131 U/L (15-37) H 01/13/20 22:48 ALT 61 U/L (12-78) 01/13/20 22:48 Alkaline Phosphatase 187 U/L (45-117) H 01/13/20 22:48 Ammonia 60.6 umol/L (11-32) H 01/13/20 22:48 Total Creatine Kinase 838 U/L (39-308) H 01/13/20 22:48 CK-MB (CK-2) 5.2 ng/ml (0.5-3.6) H 01/13/20 22:48 CK/CKMB % Calc 0.6 (0-3.0) 01/13/20 22:48 Total Protein 6.3 gm/dl (6.4-8.2) L 01/13/20 22:48 Albumin 3.0 gm/dl (3.4-5.0) L 01/13/20 22:48 Globulin 3.3 gm/dl (2.5-4.0) 01/13/20 22:48 Albumin/Globulin Ratio 0.9 (0.9-2) 01/13/20 22:48 TSH 2.830 uIu/ml (0.300-4.500) 01/13/20 22:48 Urine Color Yellow 01/13/20 22:48 Urine Appearance Clear (Clear) 01/13/20 22:48 Urine pH 5.0 (4.5-7.5) 01/13/20 22:48 Ur Specific [place] 1.021 (1.000-1.030) 01/13/20 22:48 Urine Protein Negative (Negative) 01/13/20 22:48 Urine Glucose (UA) 3+ (Negative) H 01/13/20 22:48 Urine Ketones Negative (Negative) 01/13/20 22:48 Urine Blood Negative (Negative) 01/13/20 22:48 Urine Nitrite Negative (Negative) 01/13/20 22:48 Urine Bilirubin Negative (Negative) 01/13/20 22:48 Urine Urobilinogen Negative (Negative) 01/13/20 22:48 Ur Leukocyte Esterase Trace (Negative) H 01/13/20 22:48 Urine WBC (Auto) 1-5 /hpf (0-5) 01/13/20 22:48 Urine RBC (Auto) 0-4 /hpf (0-4) 01/13/20 22:48 U Hyaline Cast (Auto) 1-5 /lpf (0-5) 01/13/20 22:48 U Epithel Cells (Auto) 0-5 /lpf (0-5) 01/13/20 22:48 Urine Bacteria (Auto) Negative (Negative) 01/13/20 22:[address] head: No acute intracranial findings Chest x-ray : Minimal bibasilar atelectasis. Otherwise negative study. EKG as per my interpretation : Rate 70, NSR, LAD, LAFB, T wave flattening inferior leads, septal infarct, ME WP
[2020-01-14] MEDS: PANTOprazole 40 MG in DEXTROSE 5% 100 ML IV SCH ×2 (00:54→06:48)
[2020-01-14] MEDS ORDERED: GLUCOSE 10 TABS/TUBE PO PRN (01:47)
[2020-01-14] MEDS ORDERED: GLUCOSE 40% GEL 15 GM TUBE PO PRN (01:47)
[2020-01-14] MEDS ORDERED: PROMETHAZINE HCL 12.5 MG in SODIUM CHLORIDE 0.9% 50 ML IV PRN (01:47)
[2020-01-14] MEDS ORDERED: CARBOHYDRATES FOR HYPOGLYCEMIA PO PRN (01:47)
[2020-01-14] MEDS ORDERED: DEXTROSE 50% 50 ML SYRINGE IV PRN (01:47)
[2020-01-14] MEDS ORDERED: NITROGLYCERIN SL 0.4 MG/TAB TAB SL PRN (01:47)
[2020-01-14] MEDS ORDERED: TRAMADOL HCL 50 MG TABLET PO PRN (01:47)
[2020-01-14] MEDS ORDERED: GLUCAGON FOR INJ 1 MG VIAL SQ PRN (01:47)
[2020-01-14] MEDS: INSULIN ASPART 100 UNITS/ML 3 ML PEN SQ SCH ×6 (02:45→20:18)
[2020-01-14] MEDS: SODIUM CHLORIDE 0.45 % 1,000 ML IV SCH ×2 (02:48→19:11)
[2020-01-14] MEDS: RIFAXIMIN 550 MG TABLET PO SCH ×3 (02:54→20:18)
[2020-01-14 03:51] LABS: Hematocrit (blood only) 39.1 % (42-52); Hemoglobin 13.1 g/dL (14.0-18.0); Mean Corpuscular Hemoglobin 30.2 pg (25-34); Mean Corpuscular Hgb Conc 33.5 g/dL (32-36); Mean Corpuscular Volume 90.1 fL (80-100); RDW Coefficient of Variation 16.5 % (11.5-14.5); RDW Standard Deviation 54.6 fL (36.4-46.3); Red Blood Count 4.34 M/uL (4.7-6.1); White Blood Count 3.75 K/uL (4.8-10.8)
[2020-01-14 04:08] LABS: Albumin Level 2.8 gm/dl (3.4-5.0); BUN Creatinine Ratio 12.2 (10-20); Est GFR (African American) 55.2; Est GFR (Non-African American) 47.6
[2020-01-14 04:10] LABS: Albumin Globulin Ratio 0.9 (0.9-2); Bilirubin,Total 0.8 mg/dl (0.2-1); Total Protein 5.8 gm/dl (6.4-8.2)
[2020-01-14 04:43] LABS: Basophils # (auto) 0.02 K/uL (0-0.2); Basophils % (auto) 0.5 %; Eosinophils # (auto) 0.09 K/uL (0-0.5); Eosinophils % (auto) 2.4 %; Giant Platelets 1+; Lymphocytes # (auto) 0.76 K/uL (1.2-3.4); Lymphocytes % (auto) 20.3 %; Mean Platelet Volume 10.5 fL (7.4-10.4); Neutrophils # (auto) 2.28 K/uL (1.4-6.5); Neutrophils % (auto) 60.8 %; Ovalocytes 1+; Platelet Count 54 K/uL (130-400)
[2020-01-14 06:01] LABS: Estimated Average Glucose 214 mg/dl; Hemoglobin A1C 9.1 % (4.5-5.6)
--- NOTE | 2020-01-14 06:32 | CT Scan Report ---
CT head/brain wo con CLINICAL HISTORY: Head trauma. Confusion. COMPARISON STUDY: November 12, 2018 TECHNIQUE: Axial CT of the brain is performed from the vertex to the skull base. IV contrast was not administered for this examination. A dose lowering technique was utilized adhering to the principles of ALARA. CT DOSE: 614.27 mGy.cm FINDINGS: No intra or extra-axial mass lesions are visualized. There is no CT evidence of acute cortical infarc tion. There is no evidence of midline shift. There is no acute hemorrhage. No calvarial fractures ar e visualized. There are patchy white matter hypodensities likely on a small vessel basis. There is no evidence of pathologic ventricular dilatation. There is no evidence of acute sinusitis IMPRESSION: No acute intracranial findings ACT 112: Negative or not required by law. Electronically signed by: Paulino Kat M.D. 01/14/2020 6:31 AM
[2020-01-14] MEDS: FLUTICASONE PROPIONATE NA SPR 16 GM BTL SCH (07:45)
[2020-01-14] MEDS: FOLIC ACID 1 MG TAB PO SCH (07:46)
[2020-01-14] MEDS: LACTULOSE SYRUP 30 GM/45 ML UDP PO SCH ×4 (07:46→20:16)
[2020-01-14] MEDS: TAMSULOSIN HCL 0.4 MG CAP PO SCH (07:46)
[2020-01-14] MEDS: METOPROLOL TARTRATE 25 MG TAB PO SCH ×2 (07:46→20:17)
[2020-01-14] MEDS: PANTOprazole 40 MG TAB PO SCH ×2 (09:53→20:17)
[2020-01-14 10:07] LABS: Hematocrit (blood only) 38.3 % (42-52); Hemoglobin 12.9 g/dL (14.0-18.0)
--- NOTE | 2020-01-14 10:33 | Electrocardiogram Report ---
Test Reason : Blood Pressure : / mmHG Vent. Rate : 071 BPM Atrial Rate : 071 BPM P-R Int : 144 ms QRS Dur : 080 ms QT Int : 406 ms P-R-T Axes : 012 -19 -17 degrees QTc Int : 441 ms Normal sinus rhythm Left axis deviation Septal infarct (cited on or before 14-JAN-2019) Abnormal ECG When compared with ECG of 14-JAN-2019 11:27, No significant change was found Confirmed by Benitez Galaviz ([id number]) on 01/14/2020 10:33:41 AM Referred By: REFERRED SELF Confirmed By:Benitez Galaviz
--- NOTE | 2020-01-14 11:58 | Gastrointestinal Consultation ---
Date of Consultation January 14, 2020 Assessment & Plan (1) Encephalopathy: Seems to be mildly encephalopathic though confusion likely multifactorial with hypo then hyperglycemia contributing. Gental IV hydration. Would continue OP lactulose 30Gm QID and rifaximin 550mg BID. Hold diuretics until returns to baseline mentation but restart prior to DC. Appreciate primary hospitalists management of hypo/hyperglycemia and HTN. Present on Admission?: Yes (2) Cirrhosis of liver not due to alcohol: His report of black BMs is more likely related to iron supplements that a significant GI bleeding (no significant drop in Hb/Hct, no significant rise in BUN, no drop in BP). He has undergone EGD 9 months ago w/o EV (though gastric portal hypertensive was present). MELD 12 (Na 146, T Bili 0.8, INR 1.2, Cr 1.38) Would hold on repeat EGD unless significant gross GI bleeding and drop in Hb/Hct. Low salt diet. Continue OP GI f/u. Attg aadd: Late entry from yesterday afternoon.I interviewed and examined pt, reviewed chart and labs. Pt found at home confused, with report of low blood sugar at home and subsequently admitted to hospital. We are consulted for GIB due to report of black stool, although pt was hypertensive with normal hgb and normal BUN on admission. On exam, his thought appears mildly slow but lucid, and his speech is normal rate; he has a mild tremor. No evidence of GIB - no need EGD. His enceophalopathy may be scondary to mild dehydration; hold diuretics for now and cont lactulose/xifaxan as prescribe.d Present on Admission?: Yes History of Present Illness Reason for Consultation: UGI bleed Requesting Physician: Wenceslao Attending Physician: Tomas Terry MD History of Present Illness Mr. Bryan Quintero an 79-year-old male patient of Dr. Evans with a history of CAD, DM 2, aortic stenosis, CKD 3, and KLEIN cirrhosis with ascites and prior hepatic encephalopathy (followed by Sapna Godinez NP and maintained furosemide 20 mg daily, lactulose 45 QID, and rifaximin). He presented to the ED late yesterday with report of confusion. He had been found by his family laying on the floor. At that time family checked his blood sugar and found it to be low. On arrival, Hb was 13.8-> 12.9 today. BUN was 13 ->17 today. Glucose was high at 245 and he was hypertensive. He was awake, alert, (continues to be so today on exam, though responses are vague, non specific, somewhat slow word finding) and he reports passing black bowel movements intermittently. Records show that he is on p.o. iron twice daily. He has not had a bowel movement since arrival. Most recent EGD 03/03/19, Dr. Garcia, screening/cirrhosis: - The esophagus was normal. - Portal hypertensive gastropathy was found in the entire examined stomach. - The examined duodenum was normal. Most recent Colonoscopy 03/03/19 Dr. Garcia (screening): - 5mm transverse colon polyp - diverticula - internal hemorrhoids. Allergies Allergy/AdvReac Type Severity Reaction Status Date / Time PRASHANT Inhibitors Allergy Severe ANGIOEDEMA Verified 01/13/20 22:22 from 10/10/11 ED adm lisinopril Allergy Severe Edema - Verified 01/13/20 22:22 face, lips and tongue simvastatin Allergy Unknown RASH, SORE Verified 01/13/20 22:22 ALL OVER. 2013: Uses Crestor Home Medications Home Medications Medication Instructions Recorded Confirmed Type Lantus Solostar U-100 Insulin 45 unit SUBCUT BID 01/14/19 01/13/20 History empagliflozin 25 mg PO DAILY 01/14/19 01/13/20 History ferrous gluconate 324 mg PO BID 01/14/19 01/13/20 History folic acid 1 mg PO DAILY 01/14/19 01/13/20 History insulin aspart U-100 [Novolog 45 unit SUBCUT TIDM 01/14/19 01/13/20 History Flexpen U-100 Insulin] metoprolol tartrate 25 mg PO BID 01/14/19 01/13/20 History pantoprazole 40 mg PO BID 01/14/19 01/13/20 History potassium chloride 20 meq PO DAILY 01/14/19 01/13/20 History rifaximin 550 mg PO BID 01/14/19 01/13/20 History tamsulosin 0.4 mg PO DAILY 01/14/19 01/13/20 History albuterol sulfate [Ventolin HFA] 2 puff INHALATION Q4H PRN 02/20/19 01/13/20 History fluticasone propionate [Flonase 1 spray INTRANASAL DAILY 02/20/19 01/13/20 History Allergy Relief] furosemide [Lasix] 20 mg PO DAILY 02/20/19 01/13/20 History lactulose 45 ml PO QID 02/20/19 01/13/20 History magnesium oxide 400 mg PO BID 02/20/19 01/13/20 History nitroglycerin 0.4 mg SUBLINGUAL UD PRN 02/20/19 01/13/20 History dextromethorphan-guaifenesin 5 ml PO Q4H PRN 01/13/20 01/13/20 History ipratropium-albuterol 3 ml INHALATION QID 01/13/20 01/13/20 History Patient History Medical History Anemia (Chronic) Anxiety Aortic stenosis (Chronic) "severe on echo 04/2017" On 07/03/16 17:13 Cande Poon wrote "severe on echo 04/2016" CAD (coronary artery disease) (Chronic) "2009 - RCA stent 2012 - RCA stent restenosis, s/p AMOS to RCA" 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) CKD (chronic kidney disease), stage III (Chronic) Diabetes mellitus type 2 in obese (Chronic) Diverticulosis (Chronic) Dyslipidemia (Chronic) GERD (gastroesophageal reflux disease) (Chronic) Hepatic encephalopathy (Chronic) Hiatal hernia (Chronic) HTN (hypertension) (Chronic) Osteoarthritis Portal hypertensive gastropathy (Chronic) Transaminitis (Chronic) Surgical History H/O hemorrhoidectomy (Resolved) History of cardiac catheterization (Resolved) NO STENTS History of colonoscopy (Resolved) History of lumbar laminectomy (Resolved) History of tooth extraction Family History Son Family history of diabetes mellitus Family/Other Family hx of colon cancer Social History Preferred Language: Ukrainian Communication Ability: Impaired Transformation Analyst Required: No Beliefs That Will Affect Care: None Current Living Situation: Alone Feels Safe at Home: Yes Smoking Status: Former smoker Tobacco Type: cigarettes ; Smoking End Date: 20- 25 years ago ; Second Hand Exposure: Yes ; Hx Alcohol Use: No Hx Substance Use: No Review of Systems Review of Systems: ROS: Gen: + confusion, Denies weakness, fevers, weight loss Eyes: No eye redness, or pain, no recent vision changes Resp: No SOB, no cough Cardio: No palpitations/irregular beats, no chest pain GI: + black BMs; No abdominal pain, no nausea/vomiting : Denies pain on urination Skin: No jaundice, itching or new rashes Physical Exam Constitutional: WD/WN, vitals as above + general weakness Eyes: PERRL, conjunctivae normal, anicteric sclerae ENMT: external ear and nose normal, oropharynx normal Neck: trachea midline, no thyromegaly Respiratory: normal respiratory effort, lungs clear to auscultation Cardiovascular: RRR, no murmur, no edema Gastrointestinal (Abdomen): normal bowel sounds, soft, nontender, no hepa tosplenomegaly mild to moderate ascites; non taunt Skin: no rashes, warm and dry Neurologic: PERRL, EOMI, accommodation nl, no face palsy, no dysarthria 1+ asterix present Psychiatric: Affect: + flat affect Insight: + limited insight Lymphatic: no cervical or axillary lymphadenopathy Results & Data ([facility]) Vital Signs (Past 12 Hours) Vital Signs Temp Pulse Pulse Resp BP BP Pulse Ox 01/14/20 07:07 36.7 C 68 16 103/65 93 01/14/20 04:26 86 01/14/20 02:23 37.1 C 72 20 159/74 H 97 01/14/20 01:15 73 17 124/54 L 97 01/14/20 01:00 74 19 125/59 L 01/14/20 00:45 73 17 125/55 L 01/14/20 00:16 80 26 H 147/73 H 95 01/14/20 00:00 80 20 128/72 96
[2020-01-14] MEDS ORDERED: PHARMACY GLYCEMIC MGMT CONSULT PRN (13:13)
--- NOTE | 2020-01-14 14:18 | Pharmacy Report ---
Glycemic Control Consultation - Date of Service January 14, 2020 - Scope Scope: Glycemic Pharmacist consulted for glycemic control and to write orders per [facility] inpatient glycemic control protocol. - Objective Weight: 78 kg Accuchecks BSG (last 24hrs): 01/13/20 01/13/20 01/13/20 21:57 22:48 23:31 Glucose 130 H POC Glucose 175 H 115 H 01/14/20 01/14/20 01/14/20 00:26 02:05 03:36 Glucose 175 H POC Glucose 128 H 213 H 01/14/20 01/14/20 06:03 11:51 Glucose POC Glucose 101 H 121 H Laboratory Data (last 24hrs): 01/13/20 01/14/20 22:48 03:36 Potassium 4.0 4.0 Carbon Dioxide 26 24 Anion Gap 7.0 8.0 Creatinine 1.49 H 1.38 Est Cr Clr Drug Dosing 35.6 38.0 HbA1c: Hemoglobin A1c 9.1 % (4.5-5.6) H 01/13/20 22:48 - Recent Pertinent Medications Outpatient Anti-diabetic Regimen: * Lantus 45 units BID * Novolog 45 units TIDM * Jardiance 25 mg PO daily * A1c = 9.1% on 01/13/2020 The patient is currently receiving: * Correctional Insulin: Novolog Correction per scale Q6H Goal Range: Low 140 mg/dL - High 180 mg/dL Correction Factor: 25 mg/dL/unit * Prandial insulin: Per carb ratio of 1 unit per 15 grams CHO consumed Risk Factors for Insulin Resistance: * Infection: Ceftriaxone 2000 mg IV Q24H * IVF: NS + 20 KCl at 80 mL/hr * Diet: Clear liquids - Assessment & Plan Assessment & Plan: ASSESSMENT: * 79 yo M with PMHx of CAD, KLEIN, T2DM, CKD III who was admitted secondary to encephalopathy * Pharmacy consulted secondary to hypoglycemia at home and help with discharge plans * BSG upon admission was 130 mg/dL * Fasting BSG this AM was 175 mg/dL * Basal insulin has been on hold and patient has only received 3 units total of bolus insulin since admission * BSGs today ranging 101-213 mg/dL * Will continue to hold basal insulin and tighten CF/CR PLAN FOR INPATIENT GLYCEMIC CONTROL: * Basal insulin * On hold for time being * Bolus insulin * NovoLog per scale ACHS or Q6hrs while NPO * TIGHTEN - Goal Range: Low 110 mg/dL - High 140 mg/dL * Correction Factor: 25 mg/dL/unit * Nutritional / Prandial insulin per carb ratio of 1 unit per 15 grams CHO consumed * Please note that the plan above was derived based on current level of insulin resistance and hospital stress. These recommendations are appropriate for inpatient admission only. Plan of care upon discharge will need to be reassessed to avoid potential outpatient hypo/hyperglycemia. Thank you.
[2020-01-14] MEDS ORDERED: INSULIN GLARGINE SOLOSTAR 100 UNITS/ML 3 ML PEN SC STA (20:48)
[2020-01-14] MEDS ORDERED: LANTUS PER UNIT CHARGE SQ STA (21:51)
--- NOTE | 2020-01-14 23:48 | Hospitalist Progress Note ---
Date of Service January 14, 2020 Assessment & Plan Admission and Anticipated Discharge Date Admission Date: January 14, 2020 Subjective Pt seen and examined in room 276. Pt lying in bed, in NAD. Somnolent but able to answer most questions appropriately. Ammonia level elevated this AM. Pt received lactulose on admission. GI consulted. No BM this AM. But pt had several BMs later in a day. Lungs sounds clear, Heart sounds regular, abdomen, soft, nontender, obese w/poss. ascites, bowel sounds present. Pt moves extremities spontaneously. Pts' daughter in law called on the phone twice, no answer, will try to reach her again tomorrow. Results & Data Results & Data ([facility]) Vital Signs (Past 12 Hours) Vital Signs Temp Pulse Pulse Resp BP BP Pulse Ox 01/14/20 23:03 37 C 62 18 119/64 97 01/14/20 19:28 36.6 C 67 18 147/74 H 100 01/14/20 15:20 36.8 C 69 15 108/57 L 96 01/14/20 14:19 63 01/14/20 12:36 36.7 C 63 17 127/65 98
[2020-01-15] MEDS: INSULIN ASPART 100 UNITS/ML 3 ML PEN SQ SCH ×7 (00:04→23:43)
[2020-01-15] MEDS: cefTRIAXone SODIUM 2,000 MG in DEXTROSE 5% 50 ML IV SCH ×2 (00:12→23:40)
[2020-01-15 06:13] LABS: Hemoglobin 13.2 g/dL (14.0-18.0); Mean Corpuscular Hemoglobin 30.8 pg (25-34); Mean Corpuscular Hgb Conc 33.8 g/dL (32-36); Mean Corpuscular Volume 90.9 fL (80-100); RDW Coefficient of Variation 16.7 % (11.5-14.5); RDW Standard Deviation 54.2 fL (36.4-46.3); Red Blood Count 4.29 M/uL (4.7-6.1); White Blood Count 4.41 K/uL (4.8-10.8)
[2020-01-15 06:45] LABS: Mean Platelet Volume 11.9 fL (7.4-10.4); Platelet Count 64 K/uL (130-400)
[2020-01-15 06:49] LABS: Albumin Globulin Ratio 0.8 (0.9-2); Albumin Level 2.6 gm/dl (3.4-5.0); BUN Creatinine Ratio 7.9 (10-20); Bilirubin,Total 1.1 mg/dl (0.2-1); Calcium 8.4 mg/dl (8.5-10.1); Creatinine Clr Calc Pharmacy 42.6 ml/min; Est GFR (Non-African American) 55.3; Globulin 3.1 gm/dl (2.5-4.0); Potassium 3.8 mmol/L (3.5-5.1); Total Protein 5.7 gm/dl (6.4-8.2)
[2020-01-15] MEDS: FLUTICASONE PROPIONATE NA SPR 16 GM BTL SCH (07:46)
[2020-01-15] MEDS: FOLIC ACID 1 MG TAB PO SCH (07:46)
[2020-01-15] MEDS: RIFAXIMIN 550 MG TABLET PO SCH ×2 (07:46→20:39)
[2020-01-15] MEDS: METOPROLOL TARTRATE 25 MG TAB PO SCH ×2 (07:46→20:39)
[2020-01-15] MEDS: LACTULOSE SYRUP 30 GM/45 ML UDP PO SCH ×4 (07:46→20:35)
[2020-01-15] MEDS: PANTOprazole 40 MG TAB PO SCH ×2 (07:46→20:39)
[2020-01-15] MEDS: TAMSULOSIN HCL 0.4 MG CAP PO SCH (07:46)
--- NOTE | 2020-01-15 07:47 | Hospitalist Progress Note ---
Date of Service January 15, 2020 Assessment & Plan (1) Encephalopathy: Multifactorial : Hepatic encephalopathy likely precipitated by hypoglycemia episode, and GLENYS, in the setting of NAFLD cirrhosis, less likely upper GI bleed Hypoglycemic episode at home, DM2 insulin requiring, suboptimal control as of recent outpatient hemoglobin A1c of 8.25 May 2019 GLENYS on CKD Initially concern for upper GI bleed, and IV PPI started Also initially concern for possible SBP, and IV ceftriaxone started on admission GI consulted, upper GI bleed seems less likely Recommended lactulose and rifaximin Patient's mental status now much improved after taking lactulose and ammonia level now decreased Ammonia 01/13 AM, 117 Diabetes management per glycemic pharmacist GLENYS also improved after IV fluids and holding diuretics Creatinine down to 1.22, creatinine on admission 1.49 We will stop IV fluids, plan to restart home diuretics tomorrow Anemia and thrombocytopenia, in the setting of chronic liver disease -Continue to monitor for any signs of bleed Hx CAD sp stenting HTN, stable Hx aortic stenosis status post AVR, past tobacco abuse DVT prophylaxis. SCDs Dispo: PT /OT eval -recommend inpatient rehab, as patient is high risk for fall Code status: DNR as per the patient's prior wishes as per [id number], Ms. Irena Quintero. She can be contacted at . Irena was contacted by me and also by case management however not able to reach her, I will try to contact her again. Admission and Anticipated Discharge Date Admission Date: January 14, 2020 Subjective No acute events overnight. Patient sitting in the chair, alert and oriented, mental status much improved from yesterday. Able to answer questions appropriately. Ammonia elevated yesterday at 117, patient received lactulose and had several bowel movements. Ammonia level now down. Patient denies any fevers, chills, chest pain, shortness of breath, abdominal pain. He is inquiring about diet, will advance his diet. GI consulted, no need for endoscopy. Per PT, patient is high risk for falls, inpatient rehab is recommended. Family, Irena, contacted however nobody answered, will try to reach out to her again. Review of Systems Review of Systems: All systems reviewed & are unremarkable except as noted in HPI & below Constitutional: no fever and no chills Respiratory: no cough and no dyspnea Cardiovascular: no chest pain and no palpitations Gastrointestinal: no abdominal pain, no nausea and no vomiting Physical Exam Physical Exam: GENERAL: Elderly obese male, sitting up in a chair, awake and alert, in no acute distress HEENT: NC/AT, PERRL, EOMI NECK : Supple, short neck CHEST : CTAB no wheezing, rhonchi or crackles HEART : RRR, no obvious murmurs ABDOMEN: Positive bowel sounds, some distention, nontender, obese, soft EXTREMITIES : No LE swelling, moves extremities spontaneously SKIN: Warm, dry NEUROLOGIC : Alert and oriented, answers questions appropriately today, no facial asymmetry, moves all extremities spontaneously Results & Data Results & Data ([facility]) Vital Signs (Past 12 Hours) Vital Signs Temp Pulse Pulse Resp BP Pulse Ox 01/15/20 07:15 55 L 01/15/20 05:26 57 L 01/15/20 04:34 36.6 C 57 L 18 131/72 96 01/14/20 23:03 37 C 62 18 119/64 97 Laboratory Results 01/15/20 01/15/20 01/15/20 Range/Units 07:34 06:05 06:01 WBC (4.8-10.8) K/uL RBC (4.7-6.1) M/uL Hgb (14.0-18.0) g/dL Hct (42-52) % MCV (80-100) fL MCH (25-34) pg MCHC (32-36) g/dL RDW Std Deviation (36.4-46.3) fL RDW Coeff of Adrian (11.5-14.5) % Plt Count (130-400) K/uL MPV (7.4-10.4) fL Sodium 142 (136-145) mmol/L Potassium 3.8 (3.5-5.1) mmol/L Chloride 111 H (98-107) mmol/L Carbon Dioxide 25 (21-32) mmol/L Anion Gap 6.0 (3-11) BUN 10 D (7-18) mg/dl Creatinine 1.22 (0.6-1.4) mg/dl Est Cr Clr Drug Dosing 42.6 ml/min Est GFR ( Amer) 64.0 Est GFR (Non-Af Amer) 55.3 BUN/Creatinine Ratio 7.9 L (10-20) Glucose 102 H (70-99) mg/dl POC Glucose 72 (70-99) mg/dl Calcium 8.4 L (8.5-10.1) mg/dl Total Bilirubin 1.1 H (0.2-1) mg/dl AST 103 H (15-37) U/L ALT 53 (12-78) U/L Alkaline Phosphatase 155 H (45-117) U/L Ammonia < 10.0 L (11-32) umol/L Total Protein 5.7 L (6.4-8.2) gm/dl Albumin 2.6 L (3.4-5.0) gm/dl Globulin 3.1 (2.5-4.0) gm/dl Albumin/Globulin Ratio 0.8 L (0.9-2) 01/15/20 01/15/20 01/15/20 Range/Units 06:01 05:24 04:40 WBC 4.41 L (4.8-10.8) K/uL RBC 4.29 L (4.7-6.1) M/uL Hgb 13.2 L (14.0-18.0) g/dL Hct 39.0 L (42-52) % MCV 90.9 (80-100) fL MCH 30.8 (25-34) pg MCHC 33.8 (32-36) g/dL RDW Std Deviation 54.2 H (36.4-46.3) fL RDW Coeff of Adrian 16.7 H (11.5-14.5) % Plt Count 64 L (130-400) K/uL MPV 11.9 H (7.4-10.4) fL Sodium (136-145) mmol/L Potassium (3.5-5.1) mmol/L Chloride (98-107) mmol/L Carbon Dioxide (21-32) mmol/L Anion Gap (3-11) BUN (7-18) mg/dl Creatinine (0.6-1.4) mg/dl Est Cr Clr Drug Dosing ml/min Est GFR ( Amer) Est GFR (Non-Af Amer) BUN/Creatinine Ratio (10-20) Glucose (70-99) mg/dl POC Glucose 97 60 L* (70-99) mg/dl Calcium (8.5-10.1) mg/dl Total Bilirubin (0.2-1) mg/dl AST (15-37) U/L ALT (12-78) U/L Alkaline Phosphatase (45-117) U/L Ammonia (11-32) umol/L Total Protein (6.4-8.2) gm/dl Albumin (3.4-5.0) gm/dl Globulin (2.5-4.0) gm/dl Albumin/Globulin Ratio (0.9-2) 01/15/20 01/15/20 01/15/20 Range/Units 04:38 04:37 00:01 WBC (4.8-10.8) K/uL RBC (4.7-6.1) M/uL Hgb (14.0-18.0) g/dL Hct (42-52) % MCV (80-100) fL MCH (25-34) pg MCHC (32-36) g/dL RDW Std Deviation (36.4-46.3) fL RDW Coeff of Adrian (11.5-14.5) % Plt Count (130-400) K/uL MPV (7.4-10.4) fL Sodium (136-145) mmol/L Potassium (3.5-5.1) mmol/L Chloride (98-107) mmol/L Carbon Dioxide (21-32) mmol/L Anion Gap (3-11) BUN (7-18) mg/dl Creatinine (0.6-1.4) mg/dl Est Cr Clr Drug Dosing ml/min Est GFR ( Amer) Est GFR (Non-Af Amer) BUN/Creatinine Ratio (10-20) Glucose (70-99) mg/dl POC Glucose 67 L* 55 L* 89 (70-99) mg/dl Calcium (8.5-10.1) mg/dl Total Bilirubin (0.2-1) mg/dl AST (15-37) U/L ALT (12-78) U/L Alkaline Phosphatase (45-117) U/L Ammonia (11-32) umol/L Total Protein (6.4-8.2) gm/dl Albumin (3.4-5.0) gm/dl Globulin (2.5-4.0) gm/dl Albumin/Globulin Ratio (0.9-2) 01/14/20 01/14/20 01/14/20 Range/Units 20:11 16:17 11:51 WBC (4.8-10.8) K/uL RBC (4.7-6.1) M/uL Hgb (14.0-18.0) g/dL Hct (42-52) % MCV (80-100) fL MCH (25-34) pg MCHC (32-36) g/dL RDW Std Deviation (36.4-46.3) fL RDW Coeff of Adrian (11.5-14.5) % Plt Count (130-400) K/uL MPV (7.4-10.4) fL Sodium (136-145) mmol/L Potassium (3.5-5.1) mmol/L Chloride (98-107) mmol/L Carbon Dioxide (21-32) mmol/L Anion Gap (3-11) BUN (7-18) mg/dl Creatinine (0.6-1.4) mg/dl Est Cr Clr Drug Dosing ml/min Est GFR ( Amer) Est GFR (Non-Af Amer) BUN/Creatinine Ratio (10-20) Glucose (70-99) mg/dl POC Glucose 252 H 137 H 121 H (70-99) mg/dl Calcium (8.5-10.1) mg/dl Total Bilirubin (0.2-1) mg/dl AST (15-37) U/L ALT (12-78) U/L Alkaline Phosphatase (45-117) U/L Ammonia (11-32) umol/L Total Protein (6.4-8.2) gm/dl Albumin (3.4-5.0) gm/dl Globulin (2.5-4.0) gm/dl Albumin/Globulin Ratio (0.9-2) 01/14/20 Range/Units 09:50 WBC (4.8-10.8) K/uL RBC (4.7-6.1) M/uL Hgb 12.9 L (14.0-18.0) g/dL Hct 38.3 L (42-52) % MCV (80-100) fL MCH (25-34) pg MCHC (32-36) g/dL RDW Std Deviation (36.4-46.3) fL RDW Coeff of Adrian (11.5-14.5) % Plt Count (130-400) K/uL MPV (7.4-10.4) fL Sodium (136-145) mmol/L Potassium (3.5-5.1) mmol/L Chloride (98-107) mmol/L Carbon Dioxide (21-32) mmol/L Anion Gap (3-11) BUN (7-18) mg/dl Creatinine (0.6-1.4) mg/dl Est Cr Clr Drug Dosing ml/min Est GFR ( Amer) Est GFR (Non-Af Amer) BUN/Creatinine Ratio (10-20) Glucose (70-99) mg/dl POC Glucose (70-99) mg/dl Calcium (8.5-10.1) mg/dl Total Bilirubin (0.2-1) mg/dl AST (15-37) U/L ALT (12-78) U/L Alkaline Phosphatase (45-117) U/L Ammonia (11-32) umol/L Total Protein (6.4-8.2) gm/dl Albumin (3.4-5.0) gm/dl Globulin (2.5-4.0) gm/dl Albumin/Globulin Ratio (0.9-2) Medications Administered Current Inpatient Medications Dextrose (Dextrose 50%) 25 - 50 ml IV UD PRN; Protocol PRN Reason: Hypoglycemia Protocol Stop: 02/13/20 01:46 Fluticasone Propionate (Flonase) 1 sprays NA DAILY [facility] Stop: 02/13/20 08:59 Last Admin: 01/14/20 07:45 Dose: 1 sprays Documented by: Folic Acid (Folvite) 1 mg PO DAILY [facility] Stop: 02/13/20 08:59 Last Admin: 01/14/20 07:46 Dose: 1 mg Documented by: Glucagon (Glucagen) 1 mg SQ UD PRN; Protocol PRN Reason: Hypoglycemia Protocol Stop: 02/13/20 01:46 Glucose (Dex4 Glucose) 4 - 8 tabs PO UD PRN; Protocol PRN Reason: Hypoglycemia Protocol Stop: 02/13/20 01:46 Glucose (Glucose 40%) 15 - 30 gm PO UD PRN; Protocol PRN Reason: Hypoglycemia Protocol Stop: 02/13/20 01:46 Ceftriaxone Sodium 2,000 mg/ (Dextrose) 70 mls @ 50 mls/hr IV Q24H [facility]; Protocol Stop: 01/25/20 00:29 Last Infusion: 01/15/20 01:40 Dose: Infused Documented by: Sodium Chloride (1/2 Nss) 1,000 mls @ 60 mls/hr IV .[id number] [facility] Stop: 02/13/20 01:46 Last Admin: 01/14/20 19:11 Dose: 60 mls/hr Documented by: Promethazine HCl 12.5 mg/ (Sodium Chloride) 50.5 mls @ 202 mls/hr IV Q6H PRN PRN Reason: Nausea And Vomiting Stop: 02/13/20 01:46 Insulin Aspart (Novolog Flexpen) 0 units SQ ACHS [facility] Stop: 02/13/20 20:59 Last Admin: 01/14/20 20:18 Dose: 5 units Documented by: Lactulose (Chronulac) 30 gm PO QID [facility] Stop: 02/13/20 16:59 Last Admin: 01/14/20 20:16 Dose: 30 gm Documented by: Metoprolol Tartrate (Lopressor) 25 mg PO BID [facility] Stop: 02/13/20 08:59 Last Admin: 01/14/20 20:17 Dose: 25 mg Documented by: Miscellaneous (Carbohydrates For Hypoglycemia) 15 - 30 gm PO UD PRN PRN Reason: Hypoglycemia Protocol Stop: 02/13/20 01:46 Last Admin: 01/15/20 04:44 Dose: 15 gm Documented by: Miscellaneous Information (Consult Glycemic Management Pharmacy) 1 ea N/A UD PRN PRN Reason: Consult Stop: 02/13/20 13:12 Nitroglycerin (Nitrostat) 0.4 mg SL UD PRN PRN Reason: Chest Pain Stop: 02/13/20 01:46 Pantoprazole Sodium (Protonix) 40 mg PO BID [facility] Stop: 02/13/20 08:59 Last Admin: 01/14/20 20:17 Dose: 40 mg Documented by: Rifaximin (Xifaxan) 550 mg PO BID [facility] Stop: 02/13/20 01:46 Last Admin: 01/14/20 20:18 Dose: 550 mg Documented by: Tamsulosin HCl (Flomax) 0.4 mg PO DAILY [facility] Stop: 02/13/20 08:59 Last Admin: 01/14/20 07:46 Dose: 0.4 mg Documented by: Tramadol HCl (Ultram) 25 mg PO Q4H PRN PRN Reason: Pain Stop: 02/13/20 01:46
[2020-01-15] MEDS ORDERED: INSULIN GLARGINE SOLOSTAR 100 UNITS/ML 3 ML PEN SC SCH (09:00)
--- NOTE | 2020-01-15 10:06 | Gastroenterology Progress Note ---
Date of Service January 15, 2020 Assessment & Plan (1) Encephalopathy: Mentating at baseline. Would continue OP lactulose 30Gm QID and rifaximin 550mg BID. Can restart diuretics at prior OP dosing. Appreciate primary hospitalists management of hypo/hyperglycemia and HTN. (2) Cirrhosis of liver not due to alcohol: Regarding pt reports of black BMs, this does not appear to be a significant GI bleed. Nursing documenting brown BM and Hb/Hct, BUN stable/normal. MELD 12 (Na 146, T Bili 0.8, INR 1.2, Cr 1.38) No indication for endoscopy 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. GI will sign off. Please notify us if new/worrisome GI/liver issues. Pt should continue non urgent OP GI f/u for cirrhosis. Attg add: I interviewed and examined pt, reviewed chart and labs. Pt's hgb remains stable. On exam, he is comfortable and lucid. He does have mild persistent tremor. Cont outpt regimen for HE. Will sign off. Admission and Anticipated Discharge Date Admission Date: January 14, 2020 Subjective Pt seen and examined in room 276. Patient awake alert and oriented today. Compared to yesterday, able to find words faster, provide more detailed history, no asterixis. Past brown bowel movement. Hemoglobin stable at 13.2. BUN normal at 10. Review of Systems Review of Systems: ROS: Gen: No confusion, Denies weakness, fevers, weight loss Eyes: No eye redness, or pain, no recent vision changes Resp: No SOB, no cough Cardio: No palpitations/irregular beats, no chest pain GI: brow BM documented by nursing; No abdominal pain, no nausea/vomiting : Denies pain on urination Skin: No jaundice, itching or new rashes Physical Exam Constitutional: WD/WN, vitals as above Eyes: PERRL, conjunctivae normal, anicteric sclerae ENMT: external ear and nose normal, oropharynx normal Neck: trachea midline, no thyromegaly Respiratory: normal respiratory effort, lungs clear to auscultation Cardiovascular: RRR, no murmur, no edema Gastrointestinal (Abdomen): normal bowel sounds, soft, nontender, no hepatosplenomegaly Skin: no rashes, warm and dry Neurologic: PERRL, EOMI, accommodation nl, no face palsy, no dysarthria Psychiatric: A+Ox3, euthymic affect Lymphatic: no cervical or axillary lymphadenopathy Results & Data ([facility]) Vital Signs (Past 12 Hours) Vital Signs Temp Pulse Pulse Resp BP Pulse Ox 01/15/20 07:45 36.8 C 54 L 16 119/67 97 01/15/20 07:44 56 L 122/67 01/15/20 07:15 55 L 01/15/20 05:26 57 L 01/15/20 04:34 36.6 C 57 L 18 131/72 96 01/14/20 23:03 37 C 62 18 119/64 97
[2020-01-15] MEDS: SODIUM CHLORIDE 0.45 % 1,000 ML IV SCH (10:54)
[2020-01-15] MEDS ORDERED: INSULIN GLARGINE SOLOSTAR 100 UNITS/ML 3 ML PEN SC ONE (12:00)
--- NOTE | 2020-01-15 15:04 | Pharmacy Report ---
Pharmacy Glycemic Short Note 2 - Date of Service January 15, 2020 - Glycemic Short BSG Results (Last 24 hours): 01/14/20 01/14/20 01/15/20 16:17 20:11 00:01 Glucose POC Glucose 137 H 252 H 89 01/15/20 01/15/20 01/15/20 04:37 04:38 04:40 Glucose POC Glucose 55 L* 67 L* 60 L* 01/15/20 01/15/20 01/15/20 05:24 06:01 07:34 Glucose 102 H POC Glucose 97 72 01/15/20 11:30 Glucose POC Glucose 167 H OUTPATIENT ANTIDIABETIC REGIMEN: * Lantus 45 units BID, Jardiance 25 mg qd, Novolog 45 units TIDM ASSESSMENT: * Mr. Quintero received 17 units of insulin yesterday, 5 of basal, 12 of correction/prandial * Hypoglycemic event this morning, up to 167 at lunch, did give another 5 units of basal at lunch, moving toward AM administration * Diet advanced, will continue to monitor for needed changes PLAN FOR INPATIENT GLYCEMIC CONTROL: * Hold outpatient oral diabetes medications * Basal insulin * Lantus 5 units x 1 * Bolus insulin * NovoLog per scale ACHS or Q6hrs while NPO * Goal Range: Low 110 mg/dL - High 140 mg/dL * Correction Factor: 30 mg/dL/unit * Nutritional / Prandial insulin per carb ratio of 1 unit per 15 grams CHO consumed
[2020-01-16] MEDS: INSULIN ASPART 100 UNITS/ML 3 ML PEN SQ SCH ×5 (03:58→20:25)
[2020-01-16 07:41] LABS: Hematocrit (blood only) 37.9 % (42-52); Hemoglobin 12.7 g/dL (14.0-18.0); Mean Corpuscular Hemoglobin 30.2 pg (25-34); Mean Corpuscular Hgb Conc 33.5 g/dL (32-36); Mean Corpuscular Volume 90.2 fL (80-100); Platelet Count 53 K/uL (130-400); RDW Coefficient of Variation 16.5 % (11.5-14.5); RDW Standard Deviation 53.4 fL (36.4-46.3); White Blood Count 4.43 K/uL (4.8-10.8)
[2020-01-16 07:53] LABS: Albumin Globulin Ratio 0.9 (0.9-2); Albumin Level 2.6 gm/dl (3.4-5.0); BUN Creatinine Ratio 8.1 (10-20); Bilirubin,Total 0.8 mg/dl (0.2-1); Calcium 8.5 mg/dl (8.5-10.1); Creatinine Clr Calc Pharmacy 44.4 ml/min; Est GFR (African American) 65.3; Est GFR (Non-African American) 56.4; Globulin 2.8 gm/dl (2.5-4.0); Potassium 3.9 mmol/L (3.5-5.1); Total Protein 5.4 gm/dl (6.4-8.2)
[2020-01-16] MEDS: FLUTICASONE PROPIONATE NA SPR 16 GM BTL SCH (08:57)
[2020-01-16] MEDS: LACTULOSE SYRUP 30 GM/45 ML UDP PO SCH ×4 (08:57→20:26)
[2020-01-16] MEDS: FOLIC ACID 1 MG TAB PO SCH (08:58)
[2020-01-16] MEDS: TAMSULOSIN HCL 0.4 MG CAP PO SCH (08:58)
[2020-01-16] MEDS: METOPROLOL TARTRATE 25 MG TAB PO SCH ×2 (08:58→20:25)
[2020-01-16] MEDS: RIFAXIMIN 550 MG TABLET PO SCH ×2 (08:58→20:26)
[2020-01-16] MEDS: PANTOprazole 40 MG TAB PO SCH ×2 (08:58→20:26)
[2020-01-16] MEDS: FUROSEMIDE 20 MG TAB PO SCH (08:58)
[2020-01-16] MEDS ORDERED: INSULIN GLARGINE SOLOSTAR 100 UNITS/ML 3 ML PEN SC SCH (09:00)
--- NOTE | 2020-01-16 11:54 | Pharmacy Report ---
Pharmacy Glycemic Short Note 2 - Date of Service January 16, 2020 - Glycemic Short BSG Results (Last 24 hours): 01/15/20 01/15/20 01/16/20 16:17 20:16 03:56 Glucose POC Glucose 200 H 158 H 151 H 01/16/20 01/16/20 01/16/20 07:11 07:26 11:33 Glucose 118 H POC Glucose 113 H 203 H OUTPATIENT ANTIDIABETIC REGIMEN: * Lantus 45 units BID, Jardiance 25 mg qd, Novolog 45 units TIDM ASSESSMENT: 01/15: * Patient received total of 18 units yesterday, of which 5 units were basal * Fasting BSG this AM w/in range at 118 mg/dL - continue 5 units basal this AM * Lunch BSG trending up - tighten CR / hesitant to change CF as BSGs tend to drop quickly overnight 01/14: * Mr. Quintero received 17 units of insulin yesterday, 5 of basal, 12 of correction/prandial * Hypoglycemic event this morning, up to 167 at lunch, did give another 5 units of basal at lunch, moving toward AM administration * Diet advanced, will continue to monitor for needed changes PLAN FOR INPATIENT GLYCEMIC CONTROL: * Hold outpatient oral diabetes medications * Basal insulin * Lantus 5 units Qam * Bolus insulin - tighten * NovoLog per scale ACHS or Q6hrs while NPO * Goal Range: Low 110 mg/dL - High 140 mg/dL * Correction Factor: 30 mg/dL/unit * Nutritional / Prandial insulin per carb ratio of 1 unit per 12 grams CHO consumed PLAN FOR DISCHARGE: * Patient requiring significantly less insulin during hospital admission vs. home insulin regimen * Patient with hypoglycemia prior to admission - anticipate decreased insulin regimen on discharge / plan tbd
--- NOTE | 2020-01-16 15:01 | Hospitalist Progress Note ---
Date of Service January 16, 2020 Assessment & Plan (1) Encephalopathy: Hepatic encephalopathy likely precipitated by hypoglycemia episode, and GLENYS, in the setting of NAFLD cirrhosis, less likely upper GI bleed Has been getting lactulose and rifaximin Ammonia level went down to 35 from 117 Remains minimally drowsy but no other acute symptoms Appreciate GI input and recommendation We will get PT and OT evaluation for possible discharge tomorrow Hypoglycemic episode at home complicated by GLENYS on CKD DM2 insulin requiring, suboptimal control as of recent outpatient hemoglobin A1c of 8.25 May 2019 Appreciate glycemic pharmacist input and recommendation GLENYS on CKD GLENYS also improved after IV fluids and holding diuretics Creatinine down to 1.22, creatinine on admission 1.49 We will stop IV fluids, plan to restart home diuretics tomorrow Possible GI bleed has been ruled out Initially concern for upper GI bleed, and IV PPI started Also initially concern for possible SBP, and IV ceftriaxone started on admission GI consulted, upper GI bleed seems less likely Hemoglobin remains stable Anemia and thrombocytopenia, in the setting of chronic liver disease -Continue to monitor for any signs of bleed Hx CAD sp stenting HTN, stable Hx aortic stenosis status post AVR, past tobacco abuse DVT prophylaxis. SCDs Dispo: PT /OT eval -recommend inpatient rehab, as patient is high risk for fall Code status: DNR as per the patient's prior wishes as per [id number], Ms. Irena Quintero. She can be contacted at . Irena was contacted by me and also by case management however not able to reach her, I will try to contact her again. No response even after a few calls. Admission and Anticipated Discharge Date Admission Date: January 14, 2020 Subjective The patient was seen and examined in medical telemetry unit He remains drowsy today but otherwise alert awake and oriented x3 Except some weakness denies any other symptoms Review of Systems Review of Systems: All systems reviewed and are unremarkable except as noted below Neurologic: + generalized weakness Physical Exam Physical Exam: Lying in the bed without any acute symptoms Constitutional: well developed, well nourished and + ill appearing; no acute distress Eyes: PERRL, conjunctivae normal, anicteric sclerae ENMT: external ear and nose normal, oropharynx normal Neck: trachea midline, no thyromegaly Respiratory: normal respiratory effort; no respiratory distress Auscultation: lungs clear to auscultation bilaterally ( With occasional crackles at the bases) Cardiovascular: Rate/Rhythm: regular rate and regular rhythm Heart Sounds: no murmur Gastrointestinal (Abdomen): Inspection/Auscultation: abdomen normal to inspection and normal bowel sounds Percussion/Palpation: abdomen soft; abdomen nontender Musculoskeletal: No acute arthritis in any joints Neurologic: moves all extremities; no focal motor deficits Remains drowsy but otherwise alert, awake and oriented x3 Lymphatic: no cervical or axillary lymphadenopathy Results & Data Results & Data ([facility]) Vital Signs (Past 12 Hours) Vital Signs Temp Pulse Pulse Resp BP BP Pulse Ox 01/16/20 11:14 36.5 C 65 18 98/58 L 97 01/16/20 09:00 60 01/16/20 07:01 36.6 C 68 18 127/74 97 01/16/20 03:55 36.7 C 60 19 144/67 H 96 Laboratory Results Short CBC 01/16/20 Range/Units 07:11 WBC 4.43 L (4.8-10.8) K/uL Hgb 12.7 L (14.0-18.0) g/dL Hct 37.9 L (42-52) % Plt Count 53 L (130-400) K/uL BMP 01/16/20 07:11 Sodium 140 Potassium 3.9 Chloride 110 H Carbon Dioxide 23 BUN 10 Creatinine 1.20 Glucose 118 H Calcium 8.5 Liver Function 01/16/20 Range/Units 07:11 Total Bilirubin 0.8 (0.2-1) mg/dl AST 88 H (15-37) U/L ALT 49 (12-78) U/L Alkaline Phosphatase 173 H (45-117) U/L Albumin 2.6 L (3.4-5.0) gm/dl Medications Administered Current Inpatient Medications Dextrose (Dextrose 50%) 25 - 50 ml IV UD PRN; Protocol PRN Reason: Hypoglycemia Protocol Stop: 02/13/20 01:46 Fluticasone Propionate (Flonase) 1 sprays NA DAILY [facility] Stop: 02/13/20 08:59 Last Admin: 01/16/20 08:57 Dose: 1 sprays Documented by: Folic Acid (Folvite) 1 mg PO DAILY [facility] Stop: 02/13/20 08:59 Last Admin: 01/16/20 08:58 Dose: 1 mg Documented by: Furosemide (Lasix) 20 mg PO DAILY [facility] Stop: 02/15/20 08:59 Last Admin: 01/16/20 08:58 Dose: 20 mg Documented by: Glucagon (Glucagen) 1 mg SQ UD PRN; Protocol PRN Reason: Hypoglycemia Protocol Stop: 02/13/20 01:46 Glucose (Dex4 Glucose) 4 - 8 tabs PO UD PRN; Protocol PRN Reason: Hypoglycemia Protocol Stop: 02/13/20 01:46 Glucose (Glucose 40%) 15 - 30 gm PO UD PRN; Protocol PRN Reason: Hypoglycemia Protocol Stop: 02/13/20 01:46 Ceftriaxone Sodium 2,000 mg/ (Dextrose) 70 mls @ 50 mls/hr IV Q24H [facility]; Protocol Stop: 01/25/20 00:29 Last Infusion: 01/16/20 01:42 Dose: Infused Documented by: Promethazine HCl 12.5 mg/ (Sodium Chloride) 50.5 mls @ 202 mls/hr IV Q6H PRN PRN Reason: Nausea And Vomiting Stop: 02/13/20 01:46 Insulin Aspart (Novolog Flexpen) 0 units SQ ACHS [facility] Stop: 02/13/20 20:59 Last Admin: 01/16/20 12:37 Dose: 8 units Documented by: Insulin Aspart (Novolog Flexpen) 0 units SQ 0000 [facility] Stop: 01/17/20 00:01 Insulin Glargine (Lantus Solostar Pen) 5 units SC DAILY [facility] Stop: 02/15/20 08:59 Last Admin: 01/16/20 08:53 Dose: 5 units Documented by: Lactulose (Chronulac) 30 gm PO QID [facility] Stop: 02/13/20 16:59 Last Admin: 01/16/20 12:38 Dose: 30 gm Documented by: Metoprolol Tartrate (Lopressor) 25 mg PO BID [facility] Stop: 02/13/20 08:59 Last Admin: 01/16/20 08:58 Dose: 25 mg Documented by: Miscellaneous (Carbohydrates For Hypoglycemia) 15 - 30 gm PO UD PRN PRN Reason: Hypoglycemia Protocol Stop: 02/13/20 01:46 Last Admin: 01/15/20 04:44 Dose: 15 gm Documented by: Miscellaneous Information (Consult Glycemic Management Pharmacy) 1 ea N/A UD PRN PRN Reason: Consult Stop: 02/13/20 13:12 Nitroglycerin (Nitrostat) 0.4 mg SL UD PRN PRN Reason: Chest Pain Stop: 02/13/20 01:46 Pantoprazole Sodium (Protonix) 40 mg PO BID [facility] Stop: 02/13/20 08:59 Last Admin: 01/16/20 08:58 Dose: 40 mg Documented by: Rifaximin (Xifaxan) 550 mg PO BID [facility] Stop: 02/13/20 01:46 Last Admin: 01/16/20 08:58 Dose: 550 mg Documented by: Tamsulosin HCl (Flomax) 0.4 mg PO DAILY [facility] Stop: 02/13/20 08:59 Last Admin: 01/16/20 08:58 Dose: 0.4 mg Documented by: Tramadol HCl (Ultram) 25 mg PO Q4H PRN PRN Reason: Pain Stop: 02/13/20 01:46
[2020-01-16] MEDS: cefTRIAXone SODIUM 2,000 MG in DEXTROSE 5% 50 ML IV SCH (23:30)
[2020-01-17] MEDS ORDERED: INSULIN ASPART 100 UNITS/ML 3 ML PEN SQ SCH
[2020-01-17] MEDS: LACTULOSE SYRUP 30 GM/45 ML UDP PO SCH ×4 (08:45→21:25)
[2020-01-17] MEDS: INSULIN ASPART 100 UNITS/ML 3 ML PEN SQ SCH ×4 (08:52→21:46)
[2020-01-17] MEDS: PANTOprazole 40 MG TAB PO SCH ×2 (08:53→21:49)
[2020-01-17] MEDS: FOLIC ACID 1 MG TAB PO SCH (08:53)
[2020-01-17] MEDS: TAMSULOSIN HCL 0.4 MG CAP PO SCH (08:53)
[2020-01-17] MEDS: RIFAXIMIN 550 MG TABLET PO SCH ×2 (08:53→21:49)
[2020-01-17] MEDS: FLUTICASONE PROPIONATE NA SPR 16 GM BTL SCH (08:53)
[2020-01-17] MEDS: FUROSEMIDE 20 MG TAB PO SCH (08:53)
[2020-01-17] MEDS: METOPROLOL TARTRATE 25 MG TAB PO SCH ×2 (08:55→21:45)
[2020-01-17] MEDS ORDERED: INSULIN GLARGINE SOLOSTAR 100 UNITS/ML 3 ML PEN SC SCH ×2 (09:00→21:00)
--- NOTE | 2020-01-17 09:40 | Pharmacy Report ---
Pharmacy Glycemic Short Note 2 - Date of Service January 17, 2020 - Glycemic Short BSG Results (Last 24 hours): 01/16/20 01/16/20 01/16/20 11:33 16:02 19:36 POC Glucose 203 H 214 H 219 H 01/16/20 01/17/20 23:27 07:33 POC Glucose 209 H 174 H OUTPATIENT ANTIDIABETIC REGIMEN: * Lantus 45 units BID, Jardiance 25 mg qd, Novolog 45 units TIDM ASSESSMENT: 01/16: * Patient received total of 31 units of insulin yesterday, of which 5 were basal insulin -po intake improving * Fasting BSG elevated at 174 mg/dL - will increase to 10 units of basal daily and add small scale for Lantus for HS to give only if BSGs >180 * Plan to tighten CR as diet improving 01/15: * Patient received total of 18 units yesterday, of which 5 units were basal * Fasting BSG this AM w/in range at 118 mg/dL - continue 5 units basal this AM * Lunch BSG trending up - tighten CR / hesitant to change CF as BSGs tend to drop quickly overnight 01/14: * Mr. Quintero received 17 units of insulin yesterday, 5 of basal, 12 of correction/prandial * Hypoglycemic event this morning, up to 167 at lunch, did give another 5 units of basal at lunch, moving toward AM administration * Diet advanced, will continue to monitor for needed changes PLAN FOR INPATIENT GLYCEMIC CONTROL: * Hold outpatient oral diabetes medications * Basal insulin - increase * Lantus 10 units Qam * Lantus HS per scale - 5 units if BSG >180 * Bolus insulin - tighten * NovoLog per scale ACHS or Q6hrs while NPO * Goal Range: Low 110 mg/dL - High 140 mg/dL * Correction Factor: 25 mg/dL/unit * Nutritional / Prandial insulin per carb ratio of 1 unit per 9 grams CHO consumed PLAN FOR DISCHARGE: * Patient requiring significantly less insulin during hospital admission vs. home insulin regimen. * Patient with hypoglycemia prior to admission - anticipate decreased insulin regimen on discharge; Plan tbd
--- NOTE | 2020-01-17 10:24 | Hospitalist Progress Note ---
Date of Service January 17, 2020 Assessment & Plan (1) Encephalopathy: Hepatic encephalopathy likely precipitated by hypoglycemia episode, and GLENYS, in the setting of NAFLD cirrhosis, less likely upper GI bleed Has been getting lactulose and rifaximin Ammonia level went down to 35 from 117 Remains minimally drowsy but no other acute symptoms Appreciate GI input and recommendation We will get PT and OT evaluation for possible discharge tomorrow Medically stable to be discharged today Hypoglycemic episode at home complicated by GLENYS on CKD DM2 insulin requiring, suboptimal control as of recent outpatient hemoglobin A1c of 8.25 May 2019 Appreciate glycemic pharmacist input and recommendation GLENYS on CKD GLENYS also improved after IV fluids and holding diuretics Creatinine down to 1.22, creatinine on admission 1.49 We will stop IV fluids, plan to restart home diuretics tomorrow Creatinine normalized as of 01/16/2020 Possible GI bleed has been ruled out Initially concern for upper GI bleed, and IV PPI started Also initially concern for possible SBP, and IV ceftriaxone started on admission GI consulted, upper GI bleed seems less likely Hemoglobin remains stable Anemia and thrombocytopenia, in the setting of chronic liver disease -Continue to monitor for any signs of bleed -Hemoglobin stable at 12.7 on Hx CAD sp stenting HTN, stable Hx aortic stenosis status post AVR, past tobacco abuse DVT prophylaxis. SCDs Dispo: PT /OT eval -recommend inpatient rehab, as patient is high risk for fall Code status: DNR as per the patient's prior wishes as per [id number], Ms. Irena Quintero. She can be contacted at . Irena was contacted by me and also by case management however not able to reach her, I will try to contact her again. No response even after a few calls. Admission and Anticipated Discharge Date Admission Date: January 14, 2020 Subjective The patient was seen and examined in medical telemetry unit He remains drowsy today but otherwise alert awake and oriented x3 Except some weakness denies any other symptoms 01/17/2020 Patient is seen and examined in medical telemetry unit He remains minimally drowsy today but denies any symptoms He is ready to go to short-term rehab as advised Review of Systems Review of Systems: All systems reviewed and are unremarkable except as noted below Neurologic: + generalized weakness Physical Exam Physical Exam: Sitting on a chair without any acute distress Constitutional: well developed, well nourished and + ill appearing; no acute distress Eyes: PERRL, conjunctivae normal, anicteric sclerae ENMT: external ear and nose normal, oropharynx normal Neck: trachea midline, no thyromegaly Respiratory: normal respiratory effort; no respiratory distress Auscultation: lungs clear to auscultation bilaterally ( With occasional crackles at the bases) Cardiovascular: Rate/Rhythm: regular rate and regular rhythm Heart Sounds: no murmur Gastrointestinal (Abdomen): Inspection/Auscultation: abdomen normal to inspection and normal bowel sounds Percussion/Palpation: abdomen soft; abdomen nontender Musculoskeletal: No acute arthritis involving any joints Neurologic: moves all extremities; no focal motor deficits Lymphatic: no cervical or axillary lymphadenopathy Results & Data Results & Data ([facility]) Vital Signs (Past 12 Hours) Vital Signs Temp Pulse Pulse Resp BP BP Pulse Ox 01/17/20 06:46 37.0 C 54 L 18 139/74 93 01/17/20 04:21 36.8 C 60 18 136/63 95 01/16/20 23:00 36.9 C 65 18 151/68 H 94 01/16/20 22:49 66 Medications Administered Current Inpatient Medications Dextrose (Dextrose 50%) 25 - 50 ml IV UD PRN; Protocol PRN Reason: Hypoglycemia Protocol Stop: 02/13/20 01:46 Fluticasone Propionate (Flonase) 1 sprays NA DAILY [facility] Stop: 02/13/20 08:59 Last Admin: 01/17/20 08:53 Dose: 1 sprays Documented by: Folic Acid (Folvite) 1 mg PO DAILY [facility] Stop: 02/13/20 08:59 Last Admin: 01/17/20 08:53 Dose: 1 mg Documented by: Furosemide (Lasix) 20 mg PO DAILY [facility] Stop: 02/15/20 08:59 Last Admin: 01/17/20 08:53 Dose: 20 mg Documented by: Glucagon (Glucagen) 1 mg SQ UD PRN; Protocol PRN Reason: Hypoglycemia Protocol Stop: 02/13/20 01:46 Glucose (Dex4 Glucose) 4 - 8 tabs PO UD PRN; Protocol PRN Reason: Hypoglycemia Protocol Stop: 02/13/20 01:46 Glucose (Glucose 40%) 15 - 30 gm PO UD PRN; Protocol PRN Reason: Hypoglycemia Protocol Stop: 02/13/20 01:46 Ceftriaxone Sodium 2,000 mg/ (Dextrose) 70 mls @ 140 mls/hr IV Q24H [facility]; Protocol Stop: 01/25/20 00:29 Last Infusion: 01/17/20 00:17 Dose: Infused Documented by: Promethazine HCl 12.5 mg/ (Sodium Chloride) 50.5 mls @ 202 mls/hr IV Q6H PRN PRN Reason: Nausea And Vomiting Stop: 02/13/20 01:46 Insulin Aspart (Novolog Flexpen) 0 units SQ ACHS [facility] Stop: 02/13/20 20:59 Last Admin: 01/17/20 08:52 Dose: 9 units Documented by: Insulin Glargine (Lantus Solostar Pen) 10 units SC DAILY [facility] Stop: 02/16/20 08:59 Last Admin: 01/17/20 08:53 Dose: 10 units Documented by: Lactulose (Chronulac) 30 gm PO QID [facility] Stop: 02/13/20 16:59 Last Admin: 01/17/20 08:45 Dose: Not Given Documented by: Metoprolol Tartrate (Lopressor) 25 mg PO BID [facility] Stop: 02/13/20 08:59 Last Admin: 01/17/20 08:55 Dose: 25 mg Documented by: Miscellaneous (Carbohydrates For Hypoglycemia) 15 - 30 gm PO UD PRN PRN Reason: Hypoglycemia Protocol Stop: 02/13/20 01:46 Last Admin: 01/15/20 04:44 Dose: 15 gm Documented by: Miscellaneous Information (Consult Glycemic Management Pharmacy) 1 ea N/A UD PRN PRN Reason: Consult Stop: 02/13/20 13:12 Nitroglycerin (Nitrostat) 0.4 mg UD PRN PRN Reason: Chest Pain Stop: 02/13/20 01:46 Pantoprazole Sodium (Protonix) 40 mg PO BID [facility] Stop: 02/13/20 08:59 Last Admin: 01/17/20 08:53 Dose: 40 mg Documented by: Rifaximin (Xifaxan) 550 mg PO BID [facility] Stop: 02/13/20 01:46 Last Admin: 01/17/20 08:53 Dose: 550 mg Documented by: Tamsulosin HCl (Flomax) 0.4 mg PO DAILY [facility] Stop: 02/13/20 08:59 Last Admin: 01/17/20 08:53 Dose: 0.4 mg Documented by: Tramadol HCl (Ultram) 25 mg PO Q4H PRN PRN Reason: Pain Stop: 02/13/20 01:46
[2020-01-18] MEDS: INSULIN ASPART 100 UNITS/ML 3 ML PEN SQ SCH ×6 (00:16→21:01)
[2020-01-18] MEDS: cefTRIAXone SODIUM 2,000 MG in DEXTROSE 5% 50 ML IV SCH (00:17)
[2020-01-18] MEDS: METOPROLOL TARTRATE 25 MG TAB PO SCH ×2 (07:45→21:03)
[2020-01-18] MEDS: RIFAXIMIN 550 MG TABLET PO SCH ×2 (07:45→21:04)
[2020-01-18] MEDS: LACTULOSE SYRUP 30 GM/45 ML UDP PO SCH ×4 (07:45→21:02)
[2020-01-18] MEDS: PANTOprazole 40 MG TAB PO SCH ×2 (07:45→21:03)
[2020-01-18] MEDS: FUROSEMIDE 20 MG TAB PO SCH (07:46)
[2020-01-18] MEDS: FOLIC ACID 1 MG TAB PO SCH (07:46)
[2020-01-18] MEDS: FLUTICASONE PROPIONATE NA SPR 16 GM BTL SCH (07:46)
[2020-01-18] MEDS: TAMSULOSIN HCL 0.4 MG CAP PO SCH (07:46)
[2020-01-18] MEDS: INSULIN GLARGINE SOLOSTAR 100 UNITS/ML 3 ML PEN SC SCH (08:49)
--- NOTE | 2020-01-18 09:17 | Pharmacy Report ---
Pharmacy Glycemic Short Note 2 - Date of Service January 18, 2020 - Glycemic Short BSG Results (Last 24 hours): 01/17/20 01/17/20 01/17/20 11:31 16:39 20:34 POC Glucose 257 H 197 H 184 H 01/18/20 01/18/20 01/18/20 00:10 03:40 07:32 POC Glucose 204 H 149 H 138 H OUTPATIENT ANTIDIABETIC REGIMEN: * Lantus 45 units BID, Jardiance 25 mg qd, Novolog 45 units TIDM ASSESSMENT: 01/17: * Patient received total of 48 units of insulin yesterday, of which 15 were basal insulin * Fasting BSG this AM 138 mg/dL - will continue with 15 units this AM * BSG at lunch time elevated at 281 mg/dL - no snacking per RN as patient sleeping, AM insulin given on time - unclear for reasoning / BSGs yesterday all elevated >180 will give 10 units of basal now to hopefully help decrease BSGs throughout the day and provide more of a 50/50 split of basal/correctional insulin 01/16: * Patient received total of 31 units of insulin yesterday, of which 5 were basal insulin -po intake improving * Fasting BSG elevated at 174 mg/dL - will increase to 10 units of basal daily and add small scale for Lantus for HS to give only if BSGs >180 * Plan to tighten CR as diet improving 01/15: * Patient received total of 18 units yesterday, of which 5 units were basal * Fasting BSG this AM w/in range at 118 mg/dL - continue 5 units basal this AM * Lunch BSG trending up - tighten CR / hesitant to change CF as BSGs tend to drop quickly overnight 01/14: * Mr. Quintero received 17 units of insulin yesterday, 5 of basal, 12 of correction/prandial * Hypoglycemic event this morning, up to 167 at lunch, did give another 5 units of basal at lunch, moving toward AM administration * Diet advanced, will continue to monitor for needed changes PLAN FOR INPATIENT GLYCEMIC CONTROL: * Hold outpatient oral diabetes medications * Basal insulin - increase * Lantus 25 units this AM, then scale for tomorrow AM * Bolus insulin - tighten * NovoLog per scale ACHS or Q6hrs while NPO * Goal Range: Low 110 mg/dL - High 140 mg/dL * Correction Factor: 25 mg/dL/unit * Nutritional / Prandial insulin per carb ratio of 1 unit per 9 grams CHO consumed PLAN FOR DISCHARGE: * Patient requiring significantly less insulin during hospital admission vs. home insulin regimen. * Patient with hypoglycemia prior to admission - anticipate decreased insulin regimen on discharge * Plan to be determined as requirements inpatient still unknown
[2020-01-18 09:47] LABS: Hematocrit (blood only) 39.9 % (42-52); Hemoglobin 13.9 g/dL (14.0-18.0); Mean Corpuscular Hemoglobin 31.4 pg (25-34); Mean Corpuscular Hgb Conc 34.8 g/dL (32-36); Mean Corpuscular Volume 90.1 fL (80-100); RDW Coefficient of Variation 16.6 % (11.5-14.5); Red Blood Count 4.43 M/uL (4.7-6.1); White Blood Count 5.64 K/uL (4.8-10.8)
[2020-01-18 09:52] LABS: Basophils # (auto) 0.03 K/uL (0-0.2); Basophils % (auto) 0.5 %; Eosinophils # (auto) 0.22 K/uL (0-0.5); Eosinophils % (auto) 3.9 %; Immature Granulocytes # (auto) 0.02 K/uL (0.00-0.02); Immature Granulocytes % (auto) 0.4 %; Lymphocytes # (auto) 0.91 K/uL (1.2-3.4); Lymphocytes % (auto) 16.1 %; Mean Platelet Volume 11.8 fL (7.4-10.4); Monocytes # (auto) 0.72 K/uL (0.11-0.59); Monocytes % (auto) 12.8 %; Neutrophils # (auto) 3.74 K/uL (1.4-6.5); Neutrophils % (auto) 66.3 %; Platelet Count 69 K/uL (130-400)
[2020-01-18 10:03] LABS: BUN Creatinine Ratio 9.9 (10-20); Calcium 8.4 mg/dl (8.5-10.1); Creatinine Clr Calc Pharmacy 42.3 ml/min; Est GFR (African American) 61.6; Est GFR (Non-African American) 53.1; Magnesium 1.8 mg/dl (1.8-2.4); Potassium 3.8 mmol/L (3.5-5.1)
[2020-01-18 10:13] LABS: RBC Morphology Unremarkable
--- NOTE | 2020-01-18 11:41 | Hospitalist Progress Note ---
Date of Service January 18, 2020 Assessment & Plan (1) Encephalopathy: Hepatic encephalopathy likely precipitated by hypoglycemia episode, and GLENYS, in the setting of NAFLD cirrhosis, less likely upper GI bleed Has been getting lactulose and rifaximin Ammonia level went down to 35 from 117 Remains minimally drowsy but no other acute symptoms Appreciate GI input and recommendation We will get PT and OT evaluation for possible discharge tomorrow If patient remains stable without any significant symptoms Will be transferred to SNF on Tuesday when there will be an available bed Hypoglycemic episode at home complicated by GLENYS on CKD DM2 insulin requiring, suboptimal control as of recent outpatient hemoglobin A1c of 8.25 May 2019 Appreciate glycemic pharmacist input and recommendation GLENYS on CKD GLENYS also improved after IV fluids and holding diuretics Creatinine down to 1.22, creatinine on admission 1.49 We will stop IV fluids, plan to restart home diuretics tomorrow Creatinine normalized as of 01/16/2020 Possible GI bleed has been ruled out Initially concern for upper GI bleed, and IV PPI started Also initially concern for possible SBP, and IV ceftriaxone started on admission GI consulted, upper GI bleed seems less likely Hemoglobin remains stable Anemia and thrombocytopenia, in the setting of chronic liver disease -Continue to monitor for any signs of bleed -Hemoglobin stable at 12.7 on Hx CAD sp stenting HTN, stable Hx aortic stenosis status post AVR, past tobacco abuse DVT prophylaxis. SCDs Dispo: PT /OT eval -recommend inpatient rehab, as patient is high risk for fall Code status: DNR as per the patient's prior wishes as per [id number], Ms. Irena Quintero. She can be contacted at . Irena was contacted by me and also by case management however not able to reach her, I will try to contact her again. No response even after a few calls. Admission and Anticipated Discharge Date Admission Date: January 14, 2020 Subjective The patient was seen and examined in medical telemetry unit He remains drowsy today but otherwise alert awake and oriented x3 Except some weakness denies any other symptoms 01/17/2020 Patient is seen and examined in medical telemetry unit He remains minimally drowsy today but denies any symptoms He is ready to go to short-term rehab as advised 01/18/2020 Patient was seen and examined in medical telemetry unit He is much better today with decreasing drowsiness Denies any other symptoms Review of Systems Review of Systems: All systems reviewed and are unremarkable except as noted below Neurologic: + generalized weakness Physical Exam Physical Exam: Lying in bed comfortably Constitutional: well developed, well nourished and + ill appearing; no acute distress Eyes: PERRL, conjunctivae normal, anicteric sclerae ENMT: external ear and nose normal, oropharynx normal Neck: trachea midline, no thyromegaly Respiratory: normal respiratory effort; no respiratory distress Auscultation: lungs clear to auscultation bilaterally ( With occasional crackles at the bases) Cardiovascular: Rate/Rhythm: regular rate and regular rhythm Heart Sounds: no murmur Gastrointestinal (Abdomen): Inspection/Auscultation: abdomen normal to inspection, + abdomen distended and normal bowel sounds Percussion/Palpation: abdomen soft; abdomen nontender Musculoskeletal: No acute arthritis involving any joints Neurologic: moves all extremities; no focal motor deficits Lymphatic: no cervical or axillary lymphadenopathy Results & Data Results & Data ([facility]) Vital Signs (Past 12 Hours) Vital Signs Temp Pulse Pulse Resp BP BP Pulse Ox 01/18/20 11:18 37.1 C 59 L 16 115/55 L 97 01/18/20 07:19 64 01/18/20 07:11 37 C 73 16 109/70 94 01/18/20 03:11 37 C 60 21 116/70 98 Laboratory Results Short CBC 01/18/20 Range/Units 09:37 WBC 5.64 (4.8-10.8) K/uL Hgb 13.9 L (14.0-18.0) g/dL Hct 39.9 L (42-52) % Plt Count 69 L (130-400) K/uL BMP 01/18/20 09:37 Sodium 137 Potassium 3.8 Chloride 106 Carbon Dioxide 24 BUN 12 Creatinine 1.26 Glucose 239 H Calcium 8.4 L Medications Administered Current Inpatient Medications Dextrose (Dextrose 50%) 25 - 50 ml IV UD PRN; Protocol PRN Reason: Hypoglycemia Protocol Stop: 02/13/20 01:46 Fluticasone Propionate (Flonase) 1 sprays NA DAILY [facility] Stop: 02/13/20 08:59 Last Admin: 01/18/20 07:46 Dose: 1 sprays Documented by: Folic Acid (Folvite) 1 mg PO DAILY [facility] Stop: 02/13/20 08:59 Last Admin: 01/18/20 07:46 Dose: 1 mg Documented by: Furosemide (Lasix) 20 mg PO DAILY [facility] Stop: 02/15/20 08:59 Last Admin: 01/18/20 07:46 Dose: 20 mg Documented by: Glucagon (Glucagen) 1 mg SQ UD PRN; Protocol PRN Reason: Hypoglycemia Protocol Stop: 02/13/20 01:46 Glucose (Dex4 Glucose) 4 - 8 tabs PO UD PRN; Protocol PRN Reason: Hypoglycemia Protocol Stop: 02/13/20 01:46 Glucose (Glucose 40%) 15 - 30 gm PO UD PRN; Protocol PRN Reason: Hypoglycemia Protocol Stop: 02/13/20 01:46 Ceftriaxone Sodium 2,000 mg/ (Dextrose) 70 mls @ 140 mls/hr IV Q24H [facility]; Protocol Stop: 01/25/20 00:29 Last Infusion: 01/18/20 00:47 Dose: Infused Documented by: Promethazine HCl 12.5 mg/ (Sodium Chloride) 50.5 mls @ 202 mls/hr IV Q6H PRN PRN Reason: Nausea And Vomiting Stop: 02/13/20 01:46 Insulin Aspart (Novolog Flexpen) 0 units SQ ACHS [facility] Stop: 02/13/20 20:59 Last Admin: 01/18/20 08:47 Dose: 5 units Documented by: Insulin Glargine (Lantus Solostar Pen) 0 units SC HS [facility]; Protocol Stop: 02/16/20 20:59 Last Admin: 01/17/20 21:43 Dose: 5 units Documented by: Insulin Glargine (Lantus Solostar Pen) 0 units SC DAILY [facility]; Protocol Stop: 02/17/20 08:59 Last Admin: 01/18/20 08:49 Dose: 15 units Documented by: Lactulose (Chronulac) 30 gm PO QID [facility] Stop: 02/13/20 16:59 Last Admin: 01/18/20 07:45 Dose: 30 gm Documented by: Metoprolol Tartrate (Lopressor) 25 mg PO BID [facility] Stop: 02/13/20 08:59 Last Admin: 01/18/20 07:45 Dose: 25 mg Documented by: Miscellaneous (Carbohydrates For Hypoglycemia) 15 - 30 gm PO UD PRN PRN Reason: Hypoglycemia Protocol Stop: 02/13/20 01:46 Last Admin: 01/15/20 04:44 Dose: 15 gm Documented by: Miscellaneous Information (Consult Glycemic Management Pharmacy) 1 ea N/A UD PRN PRN Reason: Consult Stop: 02/13/20 13:12 Nitroglycerin (Nitrostat) 0.4 mg UD PRN PRN Reason: Chest Pain Stop: 02/13/20 01:46 Pantoprazole Sodium (Protonix) 40 mg PO BID [facility] Stop: 02/13/20 08:59 Last Admin: 01/18/20 07:45 Dose: 40 mg Documented by: Rifaximin (Xifaxan) 550 mg PO BID [facility] Stop: 02/13/20 01:46 Last Admin: 01/18/20 07:45 Dose: 550 mg Documented by: Tamsulosin HCl (Flomax) 0.4 mg PO DAILY [facility] Stop: 02/13/20 08:59 Last Admin: 01/18/20 07:46 Dose: 0.4 mg Documented by: Tramadol HCl (Ultram) 25 mg PO Q4H PRN PRN Reason: Pain Stop: 02/13/20 01:46
[2020-01-18] MEDS ORDERED: INSULIN GLARGINE SOLOSTAR 100 UNITS/ML 3 ML PEN SC ONE (12:00)
[2020-01-19] MEDS: INSULIN ASPART 100 UNITS/ML 3 ML PEN SQ SCH ×6 (00:11→21:37)
[2020-01-19] MEDS: LACTULOSE SYRUP 30 GM/45 ML UDP PO SCH ×4 (08:01→20:58)
[2020-01-19] MEDS: FUROSEMIDE 20 MG TAB PO SCH (08:02)
[2020-01-19] MEDS: TAMSULOSIN HCL 0.4 MG CAP PO SCH (08:02)
[2020-01-19] MEDS: PANTOprazole 40 MG TAB PO SCH ×2 (08:02→21:02)
[2020-01-19] MEDS: METOPROLOL TARTRATE 25 MG TAB PO SCH ×2 (08:02→21:02)
[2020-01-19] MEDS: RIFAXIMIN 550 MG TABLET PO SCH ×2 (08:03→21:02)
[2020-01-19] MEDS: FOLIC ACID 1 MG TAB PO SCH (08:03)
[2020-01-19] MEDS: FLUTICASONE PROPIONATE NA SPR 16 GM BTL SCH (08:04)
[2020-01-19] MEDS: INSULIN GLARGINE SOLOSTAR 100 UNITS/ML 3 ML PEN SC SCH (08:04)
--- NOTE | 2020-01-19 09:19 | Hospitalist Progress Note ---
Date of Service January 19, 2020 Assessment & Plan (1) Encephalopathy: Hepatic encephalopathy likely precipitated by hypoglycemia episode, and GLENYS, in the setting of NAFLD cirrhosis, less likely upper GI bleed Has been getting lactulose and rifaximin Ammonia level went down to 35 from 117 Remains minimally drowsy but no other acute symptoms Appreciate GI input and recommendation We will get PT and OT evaluation for possible discharge tomorrow If patient remains stable without any significant symptoms Will be transferred to SNF on Tuesday when there will be an available bed Hypoglycemic episode at home complicated by GLENYS on CKD DM2 insulin requiring, suboptimal control as of recent outpatient hemoglobin A1c of 8.25 May 2019 Appreciate glycemic pharmacist input and recommendation No more hypoglycemia GLENYS on CKD GLENYS also improved after IV fluids and holding diuretics Creatinine down to 1.22, creatinine on admission 1.49 We will stop IV fluids, plan to restart home diuretics tomorrow Creatinine normalized as of 01/16/2020 Possible GI bleed has been ruled out Initially concern for upper GI bleed, and IV PPI started Also initially concern for possible SBP, and IV ceftriaxone started on admission GI consulted, upper GI bleed seems less likely Hemoglobin remains stable Anemia and thrombocytopenia, in the setting of chronic liver disease -Continue to monitor for any signs of bleed -Hemoglobin stable at 12.7 on -Platelet count remains low at 69 as of 01/19/2020 Hx CAD sp stenting HTN, stable Hx aortic stenosis status post AVR, past tobacco abuse DVT prophylaxis. SCDs Dispo: PT /OT eval -recommend inpatient rehab, as patient is high risk for fall Code status: DNR as per the patient's prior wishes as per [id number], Ms. Irena Quintero. She can be contacted at . Irena was contacted by me and also by case management however not able to reach her, I will try to contact her again. No response even after a few calls. Admission and Anticipated Discharge Date Admission Date: January 14, 2020 Subjective The patient was seen and examined in medical telemetry unit He remains drowsy today but otherwise alert awake and oriented x3 Except some weakness denies any other symptoms 01/17/2020 Patient is seen and examined in medical telemetry unit He remains minimally drowsy today but denies any symptoms He is ready to go to short-term rehab as advised 01/18/2020 Patient was seen and examined in medical telemetry unit He is much better today with decreasing drowsiness Denies any other symptoms 01/19/2020 Patient is seen and examined in medical telemetry unit He is out of bed on a chair without any acute discomfort Remains minimally drowsy but alert, awake and oriented Review of Systems Review of Systems: All systems reviewed and are unremarkable except as noted below Neurologic: + generalized weakness Physical Exam Physical Exam: Sitting on a chair without any acute distress Constitutional: well developed, well nourished and + ill appearing; no acute distress Eyes: PERRL, conjunctivae normal, anicteric sclerae ENMT: external ear and nose normal, oropharynx normal Neck: trachea midline, no thyromegaly Respiratory: normal respiratory effort; no respiratory distress Auscultation: lungs clear to auscultation bilaterally ( With occasional crackles at the bases) Cardiovascular: Rate/Rhythm: regular rate and regular rhythm Heart Sounds: no murmur Gastrointestinal (Abdomen): Inspection/Auscultation: abdomen normal to inspection, + abdomen distended and normal bowel sounds Percussion/Palpation: abdomen soft; abdomen nontender Neurologic: moves all extremities; no focal motor deficits Remains minimally drowsy but otherwise alert, awake and oriented x3 Lymphatic: no cervical or axillary lymphadenopathy Results & Data Results & Data ([facility]) Vital Signs (Past 12 Hours) Vital Signs Temp Pulse Pulse Resp BP Pulse Ox 01/19/20 07:17 36.4 C L 60 61 16 151/74 H 95 01/19/20 03:37 37 C 61 18 104/53 L 95 01/19/20 00:53 78 01/18/20 23:11 37 C 66 20 92/52 L 95 Laboratory Results Short CBC 01/18/20 Range/Units 09:37 WBC 5.64 (4.8-10.8) K/uL Hgb 13.9 L (14.0-18.0) g/dL Hct 39.9 L (42-52) % Plt Count 69 L (130-400) K/uL BMP 01/18/20 09:37 Sodium 137 Potassium 3.8 Chloride 106 Carbon Dioxide 24 BUN 12 Creatinine 1.26 Glucose 239 H Calcium 8.4 L Medications Administered Current Inpatient Medications Dextrose (Dextrose 50%) 25 - 50 ml IV UD PRN; Protocol PRN Reason: Hypoglycemia Protocol Stop: 02/13/20 01:46 Fluticasone Propionate (Flonase) 1 sprays NA DAILY [facility] Stop: 02/13/20 08:59 Last Admin: 01/19/20 08:04 Dose: 1 sprays Documented by: Folic Acid (Folvite) 1 mg PO DAILY [facility] Stop: 02/13/20 08:59 Last Admin: 01/19/20 08:03 Dose: 1 mg Documented by: Furosemide (Lasix) 20 mg PO DAILY [facility] Stop: 02/15/20 08:59 Last Admin: 01/19/20 08:02 Dose: 20 mg Documented by: Glucagon (Glucagen) 1 mg SQ UD PRN; Protocol PRN Reason: Hypoglycemia Protocol Stop: 02/13/20 01:46 Glucose (Dex4 Glucose) 4 - 8 tabs PO UD PRN; Protocol PRN Reason: Hypoglycemia Protocol Stop: 02/13/20 01:46 Glucose (Glucose 40%) 15 - 30 gm PO UD PRN; Protocol PRN Reason: Hypoglycemia Protocol Stop: 02/13/20 01:46 Promethazine HCl 12.5 mg/ (Sodium Chloride) 50.5 mls @ 202 mls/hr IV Q6H PRN PRN Reason: Nausea And Vomiting Stop: 02/13/20 01:46 Insulin Aspart (Novolog Flexpen) 0 units SQ ACHS [facility] Stop: 02/13/20 20:59 Last Admin: 01/19/20 08:00 Dose: 5 units Documented by: Insulin Glargine (Lantus Solostar Pen) 0 units SC DAILY [facility]; Protocol Stop: 02/17/20 08:59 Last Admin: 01/19/20 08:04 Dose: 25 units Documented by: Lactulose (Chronulac) 30 gm PO QID [facility] Stop: 02/13/20 16:59 Last Admin: 01/19/20 08:01 Dose: 30 gm Documented by: Metoprolol Tartrate (Lopressor) 25 mg PO BID [facility] Stop: 02/13/20 08:59 Last Admin: 01/19/20 08:02 Dose: 25 mg Documented by: Miscellaneous (Carbohydrates For Hypoglycemia) 15 - 30 gm PO UD PRN PRN Reason: Hypoglycemia Protocol Stop: 02/13/20 01:46 Last Admin: 01/15/20 04:44 Dose: 15 gm Documented by: Miscellaneous Information (Consult Glycemic Management Pharmacy) 1 ea N/A UD PRN PRN Reason: Consult Stop: 02/13/20 13:12 Nitroglycerin (Nitrostat) 0.4 mg SL UD PRN PRN Reason: Chest Pain Stop: 02/13/20 01:46 Pantoprazole Sodium (Protonix) 40 mg PO BID [facility] Stop: 02/13/20 08:59 Last Admin: 01/19/20 08:02 Dose: 40 mg Documented by: Rifaximin (Xifaxan) 550 mg PO BID [facility] Stop: 02/13/20 01:46 Last Admin: 01/19/20 08:03 Dose: 550 mg Documented by: Tamsulosin HCl (Flomax) 0.4 mg PO DAILY [facility] Stop: 02/13/20 08:59 Last Admin: 01/19/20 08:02 Dose: 0.4 mg Documented by: Tramadol HCl (Ultram) 25 mg PO Q4H PRN PRN Reason: Pain Stop: 02/13/20 01:46
[2020-01-19] MEDS ORDERED: ondansetron HCL 6 MG in DEXTROSE 5% 50 ML IV PRN (09:40)
[2020-01-19] MEDS ORDERED: ONDANSETRON INJ 2 MG/ML 2 ML VIAL IV PRN (09:46)
--- NOTE | 2020-01-20 08:22 | Pharmacy Report ---
Pharmacy Glycemic Short Note 2 - Date of Service January 20, 2020 - Glycemic Short BSG Results (Last 24 hours): 01/19/20 01/19/20 01/19/20 11:29 16:35 20:01 POC Glucose 177 H 202 H 193 H 01/20/20 07:52 POC Glucose 118 H OUTPATIENT ANTIDIABETIC REGIMEN: * Lantus 45 units BID, Jardiance 25 mg qd, Novolog 45 units TIDM ASSESSMENT: 01/19: * Patient received total of 56 units of insulin yesterday, 25 unit were basal insulin, blood sugars ranging 118mg/dl - 202mg/dl * Fasting BSG this AM 118 mg/dL - continue Lantus order * Blood sugars rising throughout the day, tighten CF/CR * Possible DC to SNF tomorrow 01/17: * Patient received total of 48 units of insulin yesterday, of which 15 were basal insulin * Fasting BSG this AM 138 mg/dL - will continue with 15 units this AM * BSG at lunch time elevated at 281 mg/dL - no snacking per RN as patient sleeping, AM insulin given on time - unclear for reasoning / BSGs yesterday all elevated >180 will give 10 units of basal now to hopefully help decrease BSGs throughout the day and provide more of a 50/50 split of basal/correctional insulin 01/16: * Patient received total of 31 units of insulin yesterday, of which 5 were basal insulin -po intake improving * Fasting BSG elevated at 174 mg/dL - will increase to 10 units of basal daily and add small scale for Lantus for HS to give only if BSGs >180 * Plan to tighten CR as diet improving 01/15: * Patient received total of 18 units yesterday, of which 5 units were basal * Fasting BSG this AM w/in range at 118 mg/dL - continue 5 units basal this AM * Lunch BSG trending up - tighten CR / hesitant to change CF as BSGs tend to drop quickly overnight 01/14: * Mr. Quintero received 17 units of insulin yesterday, 5 of basal, 12 of correction/prandial * Hypoglycemic event this morning, up to 167 at lunch, did give another 5 units of basal at lunch, moving toward AM administration * Diet advanced, will continue to monitor for needed changes PLAN FOR INPATIENT GLYCEMIC CONTROL: * Hold outpatient oral diabetes medications * Basal insulin * Lantus SQ Daily * 25 units for BSG 200mg/dl or less * 30 units for BSG > 200mg/dl * Bolus insulin * NovoLog per scale ACHS or Q6hrs while NPO * Goal Range: Low 110 mg/dL - High 140 mg/dL * TIGHTEN: Correction Factor: 20 mg/dL/unit * TIGHTEN: Nutritional / Prandial insulin per carb ratio of 1 unit per 7 grams CHO consumed PLAN FOR DISCHARGE: * Patient requiring significantly less insulin during hospital admission vs. home insulin regimen. * Patient with hypoglycemia prior to admission - anticipate decreased insulin regimen on discharge * Plan to be determined as requirements inpatient still unknown
[2020-01-20] MEDS: LACTULOSE SYRUP 30 GM/45 ML UDP PO SCH ×4 (08:28→20:25)
[2020-01-20] MEDS: FOLIC ACID 1 MG TAB PO SCH (08:28)
[2020-01-20] MEDS: FLUTICASONE PROPIONATE NA SPR 16 GM BTL SCH (08:28)
[2020-01-20] MEDS: TAMSULOSIN HCL 0.4 MG CAP PO SCH (08:28)
[2020-01-20] MEDS: FUROSEMIDE 20 MG TAB PO SCH (08:29)
[2020-01-20] MEDS: METOPROLOL TARTRATE 25 MG TAB PO SCH ×2 (08:29→20:27)
[2020-01-20] MEDS: INSULIN ASPART 100 UNITS/ML 3 ML PEN SQ SCH ×4 (08:30→20:30)
[2020-01-20] MEDS: RIFAXIMIN 550 MG TABLET PO SCH ×2 (08:30→20:28)
[2020-01-20] MEDS: PANTOprazole 40 MG TAB PO SCH ×2 (08:30→20:27)
[2020-01-20] MEDS: INSULIN GLARGINE SOLOSTAR 100 UNITS/ML 3 ML PEN SC SCH (08:31)
--- NOTE | 2020-01-20 10:41 | Hospitalist Progress Note ---
Date of Service January 20, 2020 Assessment & Plan (1) Encephalopathy: Hepatic encephalopathy likely precipitated by hypoglycemia episode, and GLENYS, in the setting of NAFLD cirrhosis, less likely upper GI bleed Has been getting lactulose and rifaximin Ammonia level went down to 35 from 117 Remains minimally drowsy but no other acute symptoms Appreciate GI input and recommendation We will get PT and OT evaluation for possible discharge tomorrow If patient remains stable without any significant symptoms Awaiting transfer to SNF when a place is available Hypoglycemic episode at home complicated by GLENYS on CKD DM2 insulin requiring, suboptimal control as of recent outpatient hemoglobin A1c of 8.25 May 2019 Appreciate glycemic pharmacist input and recommendation No more hypoglycemia GLENYS on CKD GLENYS also improved after IV fluids and holding diuretics Creatinine down to 1.22, creatinine on admission 1.49 We will stop IV fluids, plan to restart home diuretics tomorrow Creatinine normalized as of 01/16/2020 We will check PRP and electrolytes in a.m. 01/21/2020 Possible GI bleed has been ruled out Initially concern for upper GI bleed, and IV PPI started Also initially concern for possible SBP, and IV ceftriaxone started on admission GI consulted, upper GI bleed seems less likely Hemoglobin remains stable-monitor CBC Anemia and thrombocytopenia, in the setting of chronic liver disease -Continue to monitor for any signs of bleed -Hemoglobin stable at 12.7 on -Platelet count remains low at 69 as of 01/19/2020 Hx CAD sp stenting HTN, stable Hx aortic stenosis status post AVR, past tobacco abuse DVT prophylaxis. SCDs Dispo: PT /OT eval -recommend inpatient rehab, as patient is high risk for fall Code status: DNR as per the patient's prior wishes as per [id number], Ms. Irena Quintero. She can be contacted at . Irena was contacted by me and also by case management however not able to reach her, I will try to contact her again. The contact number for Irena Quintero is not responding Admission and Anticipated Discharge Date Admission Date: January 14, 2020 Subjective The patient was seen and examined in medical telemetry unit He remains drowsy today but otherwise alert awake and oriented x3 Except some weakness denies any other symptoms 01/17/2020 Patient is seen and examined in medical telemetry unit He remains minimally drowsy today but denies any symptoms He is ready to go to short-term rehab as advised 01/18/2020 Patient was seen and examined in medical telemetry unit He is much better today with decreasing drowsiness Denies any other symptoms 01/19/2020 Patient was seen and examined in medical telemetry unit He is out of bed on a chair without any acute discomfort Remains minimally drowsy but alert, awake and oriented 01/20/2020 The patient was seen and examined in medical telemetry unit He remains minimally drowsy but denies any other symptoms He has been moving his bowels regularly Waiting to be transferred to [facility] Review of Systems Review of Systems: All systems reviewed and are unremarkable except as noted below Neurologic: + generalized weakness Physical Exam Physical Exam: Lying on bed without any acute symptoms or distress Constitutional: well developed, well nourished and + ill appearing; no acute distress Eyes: PERRL, conjunctivae normal, anicteric sclerae ENMT: external ear and nose normal, oropharynx normal Neck: trachea midline, no thyromegaly Respiratory: normal respiratory effort; no respiratory distress Auscultation: lungs clear to auscultation bilaterally ( With occasional crackles at the bases) Cardiovascular: Rate/Rhythm: regular rate and regular rhythm Heart Sounds: no murmur Gastrointestinal (Abdomen): Inspection/Auscultation: abdomen normal to inspection, + abdomen distended and normal bowel sounds Percussion/Palpation: abdomen soft; abdomen nontender Musculoskeletal: No acute arthritis involving any joints Neurologic: moves all extremities; no focal motor deficits Remains minimally drowsy but otherwise alert, awake and oriented x3 Lymphatic: no cervical or axillary lymphadenopathy Results & Data Results & Data ([facility]) Vital Signs (Past 12 Hours) Vital Signs Temp Pulse Pulse Pulse Resp BP Pulse Ox 01/20/20 08:00 36.9 C 58 L 16 111/57 L 94 01/20/20 07:30 53 L 01/20/20 03:45 36.9 C 58 L 18 130/70 95 01/20/20 00:03 77 01/19/20 23:09 37.0 C 74 20 110/77 93 Medications Administered Current Inpatient Medications Dextrose (Dextrose 50%) 25 - 50 ml IV UD PRN; Protocol PRN Reason: Hypoglycemia Protocol Stop: 02/13/20 01:46 Fluticasone Propionate (Flonase) 1 sprays NA DAILY [facility] Stop: 02/13/20 08:59 Last Admin: 01/20/20 08:28 Dose: 1 sprays Documented by: Folic Acid (Folvite) 1 mg PO DAILY [facility] Stop: 02/13/20 08:59 Last Admin: 01/20/20 08:28 Dose: 1 mg Documented by: Furosemide (Lasix) 20 mg PO DAILY [facility] Stop: 02/15/20 08:59 Last Admin: 01/20/20 08:29 Dose: 20 mg Documented by: Glucagon (Glucagen) 1 mg SQ UD PRN; Protocol PRN Reason: Hypoglycemia Protocol Stop: 02/13/20 01:46 Glucose (Dex4 Glucose) 4 - 8 tabs PO UD PRN; Protocol PRN Reason: Hypoglycemia Protocol Stop: 02/13/20 01:46 Glucose (Glucose 40%) 15 - 30 gm PO UD PRN; Protocol PRN Reason: Hypoglycemia Protocol Stop: 02/13/20 01:46 Promethazine HCl 12.5 mg/ (Sodium Chloride) 50.5 mls @ 202 mls/hr IV Q6H PRN PRN Reason: Nausea And Vomiting Stop: 02/13/20 01:46 Insulin Aspart (Novolog Flexpen) 0 units SQ ACHS [facility] Stop: 02/13/20 20:59 Last Admin: 01/20/20 08:30 Dose: 6 units Documented by: Insulin Glargine (Lantus Solostar Pen) 0 units SC DAILY [facility]; Protocol Stop: 02/17/20 08:59 Last Admin: 01/20/20 08:31 Dose: 25 units Documented by: Lactulose (Chronulac) 30 gm PO QID [facility] Stop: 02/13/20 16:59 Last Admin: 01/20/20 08:28 Dose: 30 gm Documented by: Metoprolol Tartrate (Lopressor) 25 mg PO BID [facility] Stop: 02/13/20 08:59 Last Admin: 01/20/20 08:29 Dose: Not Given Documented by: Miscellaneous (Carbohydrates For Hypoglycemia) 15 - 30 gm PO UD PRN PRN Reason: Hypoglycemia Protocol Stop: 02/13/20 01:46 Last Admin: 01/15/20 04:44 Dose: 15 gm Documented by: Miscellaneous Information (Consult Glycemic Management Pharmacy) 1 ea N/A UD P RN PRN Reason: Consult Stop: 02/13/20 13:12 Nitroglycerin (Nitrostat) 0.4 mg SL UD PRN PRN Reason: Chest Pain Stop: 02/13/20 01:46 Ondansetron HCl (Zofran) 4 mg IV Q6H PRN PRN Reason: Nausea Stop: 02/18/20 09:45 Last Admin: 01/19/20 10:28 Dose: 4 mg Documented by: Pantoprazole Sodium (Protonix) 40 mg PO BID [facility] Stop: 02/13/20 08:59 Last Admin: 01/20/20 08:30 Dose: 40 mg Documented by: Rifaximin (Xifaxan) 550 mg PO BID [facility] Stop: 02/13/20 01:46 Last Admin: 01/20/20 08:30 Dose: 550 mg Documented by: Tamsulosin HCl (Flomax) 0.4 mg PO DAILY [facility] Stop: 02/13/20 08:59 Last Admin: 01/20/20 08:28 Dose: 0.4 mg Documented by: Tramadol HCl (Ultram) 25 mg PO Q4H PRN PRN Reason: Pain Stop: 02/13/20 01:46
[2020-01-20 19:27] VITALS: O2SAT 95
[2020-01-21 06:11] LABS: Hematocrit (blood only) 38.6 % (42-52); Hemoglobin 13.4 g/dL (14.0-18.0); Mean Corpuscular Hgb Conc 34.7 g/dL (32-36); Mean Corpuscular Volume 89.4 fL (80-100); RDW Coefficient of Variation 16.4 % (11.5-14.5); RDW Standard Deviation 54.4 fL (36.4-46.3); Red Blood Count 4.32 M/uL (4.7-6.1); White Blood Count 6.28 K/uL (4.8-10.8)
[2020-01-21 06:14] LABS: Mean Platelet Volume 11.8 fL (7.4-10.4); Platelet Count 60 K/uL (130-400)
[2020-01-21 06:28] LABS: Basophils # (auto) 0.03 K/uL (0-0.2); Basophils % (auto) 0.5 %; Eosinophils # (auto) 0.31 K/uL (0-0.5); Eosinophils % (auto) 4.9 %; Immature Granulocytes # (auto) 0.01 K/uL (0.00-0.02); Immature Granulocytes % (auto) 0.2 %; Lymphocytes # (auto) 1.04 K/uL (1.2-3.4); Lymphocytes % (auto) 16.6 %; Monocytes # (auto) 0.87 K/uL (0.11-0.59); Monocytes % (auto) 13.9 %; Neutrophils # (auto) 4.02 K/uL (1.4-6.5); Neutrophils % (auto) 63.9 %
[2020-01-21 06:52] LABS: BUN Creatinine Ratio 11.7 (10-20); Calcium 8.4 mg/dl (8.5-10.1); Creatinine Clr Calc Pharmacy 48.9 ml/min; Est GFR (African American) 75.9; Est GFR (Non-African American) 65.5; Magnesium 1.9 mg/dl (1.8-2.4); Phosphorus 2.4 mg/dl (2.5-4.9); Potassium 3.8 mmol/L (3.5-5.1)
[2020-01-21] MEDS: INSULIN ASPART 100 UNITS/ML 3 ML PEN SQ SCH ×2 (08:25→12:31)
[2020-01-21] MEDS: FOLIC ACID 1 MG TAB PO SCH (08:27)
[2020-01-21] MEDS: FLUTICASONE PROPIONATE NA SPR 16 GM BTL SCH (08:27)
[2020-01-21] MEDS: TAMSULOSIN HCL 0.4 MG CAP PO SCH (08:27)
[2020-01-21] MEDS: LACTULOSE SYRUP 30 GM/45 ML UDP PO SCH ×2 (08:27→12:31)
[2020-01-21] MEDS: METOPROLOL TARTRATE 25 MG TAB PO SCH (08:28)
[2020-01-21] MEDS: FUROSEMIDE 20 MG TAB PO SCH (08:28)
[2020-01-21] MEDS: INSULIN GLARGINE SOLOSTAR 100 UNITS/ML 3 ML PEN SC SCH (08:28)
[2020-01-21] MEDS: RIFAXIMIN 550 MG TABLET PO SCH (08:29)
[2020-01-21] MEDS: PANTOprazole 40 MG TAB PO SCH (08:29)
--- NOTE | 2020-01-21 09:34 | Hospitalist Progress Note ---
Date of Service January 21, 2020 Assessment & Plan (1) Encephalopathy: Hepatic encephalopathy likely precipitated by hypoglycemia episode, and GLENYS, in the setting of NAFLD cirrhosis, less likely upper GI bleed Has been getting lactulose and rifaximin Ammonia level went down to 35 from 117 Remains minimally drowsy but no other acute symptoms Appreciate GI input and recommendation We will get PT and OT evaluation for possible discharge Remains stable without any acute symptoms Likely be transferred to SNF when there is a bed Hypoglycemic episode at home complicated by GLENYS on CKD DM2 insulin requiring, suboptimal control as of recent outpatient hemoglobin A1c of 8.25 May 2019 Appreciate glycemic pharmacist input and recommendation No more hypoglycemia GLENYS on CKD GLENYS also improved after IV fluids and holding diuretics Creatinine down to 1.22, creatinine on admission 1.49 We will stop IV fluids, plan to restart home diuretics tomorrow Creatinine normalized as of 01/16/2020 and remains normal Possible GI bleed has been ruled out Initially concern for upper GI bleed, and IV PPI started Also initially concern for possible SBP, and IV ceftriaxone started on admission GI consulted, upper GI bleed seems less likely Hemoglobin 13.4 as of 01/21/2020 Anemia and thrombocytopenia, in the setting of chronic liver disease -Continue to monitor for any signs of bleed -Hemoglobin stable at 12.7 on -Platelet count remains low at 69 as of 01/19/2020 Hx CAD sp stenting HTN, stable Hx aortic stenosis status post AVR, past tobacco abuse DVT prophylaxis. SCDs Dispo: PT /OT eval -recommend inpatient rehab, as patient is high risk for fall Code status: DNR as per the patient's prior wishes as per [id number], Ms. Irena Quintero. She can be contacted at . Irena was contacted by me and also by case management however not able to reach her, I will try to contact her again. The contact number for Irena Quintero is not responding Will be discharged to SNF when approved He was advised to ask his family members to give me a call for an update Admission and Anticipated Discharge Date Admission Date: January 14, 2020 Subjective The patient was seen and examined in medical telemetry unit He remains drowsy today but otherwise alert awake and oriented x3 Except some weakness denies any other symptoms 01/17/2020 Patient is seen and examined in medical telemetry unit He remains minimally drowsy today but denies any symptoms He is ready to go to short-term rehab as advised 01/18/2020 Patient was seen and examined in medical telemetry unit He is much better today with decreasing drowsiness Denies any other symptoms 01/19/2020 Patient was seen and examined in medical telemetry unit He is out of bed on a chair without any acute discomfort Remains minimally drowsy but alert, awake and oriented 01/20/2020 The patient was seen and examined in medical telemetry unit He remains minimally drowsy but denies any other symptoms He has been moving his bowels regularly Waiting to be transferred to SNF 01/21/2020 The patient was seen and examined in medical telemetry unit He remains stable without any symptoms except some nausea last evening which has been resolved Denies any fever and/or chills, any cough and/or shortness of breath Review of Systems Review of Systems: All systems reviewed and are unremarkable except as noted below Neurologic: + generalized weakness Physical Exam Physical Exam: Lying on bed without any acute symptoms or distress Constitutional: well developed, well nourished and + ill appearing; no acute distress Eyes: PERRL, conjunctivae normal, anicteric sclerae ENMT: external ear and nose normal, oropharynx normal Neck: trachea midline, no thyromegaly Respiratory: normal respiratory effort; no respiratory distress Auscultation: lungs clear to auscultation bilaterally ( With occasional crackles at the bases) Cardiovascular: Rate/Rhythm: regular rate and regular rhythm Heart Sounds: no murmur Gastrointestinal (Abdomen): Inspection/Auscultation: abdomen normal to inspection, + abdomen distended and normal bowel sounds Percussion/Palpation: abdomen soft; abdomen nontender Musculoskeletal: No acute arthritis involving any joints Neurologic: moves all extremities; no focal motor deficits Lymphatic: no cervical or axillary lymphadenopathy Results & Data Results & Data ([facility]) Vital Signs (Past 12 Hours) Vital Signs Temp Pulse Pulse Pulse Resp BP BP 01/21/20 07:28 62 01/21/20 07:00 36.7 C 63 18 109/50 L 01/21/20 04:22 36.8 C 58 L 18 114/56 L 01/20/20 22:59 37.4 C 68 18 134/68 Pulse Ox 01/21/20 07:28 01/21/20 07:00 95 01/21/20 04:22 95 01/20/20 22:59 95 Laboratory Results Short CBC 01/21/20 Range/Units 05:42 WBC 6.28 (4.8-10.8) K/uL Hgb 13.4 L (14.0-18.0) g/dL Hct 38.6 L (42-52) % Plt Count 60 L (130-400) K/uL BMP 01/21/20 05:42 Sodium 140 Potassium 3.8 Chloride 109 H Carbon Dioxide 25 BUN 12 Creatinine 1.06 Glucose 184 H Calcium 8.4 L Medications Administered Current Inpatient Medications Dextrose (Dextrose 50%) 25 - 50 ml IV UD PRN; Protocol PRN Reason: Hypoglycemia Protocol Stop: 02/13/20 01:46 Fluticasone Propionate (Flonase) 1 sprays NA DAILY [facility] Stop: 02/13/20 08:59 Last Admin: 01/21/20 08:27 Dose: 1 sprays Documented by: Folic Acid (Folvite) 1 mg PO DAILY [facility] Stop: 02/13/20 08:59 Last Admin: 01/21/20 08:27 Dose: 1 mg Documented by: Furosemide (Lasix) 20 mg PO DAILY [facility] Stop: 02/15/20 08:59 Last Admin: 01/21/20 08:28 Dose: 20 mg Documented by: Glucagon (Glucagen) 1 mg SQ UD PRN; Protocol PRN Reason: Hypoglycemia Protocol Stop: 02/13/20 01:46 Glucose (Dex4 Glucose) 4 - 8 tabs PO UD PRN; Protocol PRN Reason: Hypoglycemia Protocol Stop: 02/13/20 01:46 Glucose (Glucose 40%) 15 - 30 gm PO UD PRN; Protocol PRN Reason: Hypoglycemia Protocol Stop: 02/13/20 01:46 Promethazine HCl 12.5 mg/ (Sodium Chloride) 50.5 mls @ 202 mls/hr IV Q6H PRN PRN Reason: Nausea And Vomiting Stop: 02/13/20 01:46 Insulin Aspart (Novolog Flexpen) 0 units SQ ACHS [facility] Stop: 02/13/20 20:59 Last Admin: 01/21/20 08:25 Dose: 6 units Documented by: Insulin Glargine (Lantus Solostar Pen) 0 units SC DAILY [facility]; Protocol Stop: 02/17/20 08:59 Last Admin: 01/21/20 08:28 Dose: 25 units Documented by: Lactulose (Chronulac) 30 gm PO QID [facility] Stop: 02/13/20 16:59 Last Admin: 01/21/20 08:27 Dose: 30 gm Documented by: Metoprolol Tartrate (Lopressor) 25 mg PO BID [facility] Stop: 02/13/20 08:59 Last Admin: 01/21/20 08:28 Dose: 25 mg Documented by: Miscellaneous (Carbohydrates For Hypoglycemia) 15 - 30 gm PO UD PRN PRN Reason: Hypoglycemia Protocol Stop: 02/13/20 01:46 Last Admin: 01/15/20 04:44 Dose: 15 gm Documented by: Miscellaneous Information (Consult Glycemic Management Pharmacy) 1 ea N/A UD PRN PRN Reason: Consult Stop: 02/13/20 13:12 Nitroglycerin (Nitrostat) 0.4 mg SL UD PRN PRN Reason: Chest Pain Stop: 02/13/20 01:46 Ondansetron HCl (Zofran) 4 mg IV Q6H PRN PRN Reason: Nausea Stop: 02/18/20 09:45 Last Admin: 01/19/20 10:28 Dose: 4 mg Documented by: Pantoprazole Sodium (Protonix) 40 mg PO BID [facility] Stop: 02/13/20 08:59 Last Admin: 01/21/20 08:29 Dose: 40 mg Documented by: Rifaximin (Xifaxan) 550 mg PO BID [facility] Stop: 02/13/20 01:46 Last Admin: 01/21/20 08:29 Dose: 550 mg Documented by: Tamsulosin HCl (Flomax) 0.4 mg PO DAILY [facility] Stop: 02/13/20 08:59 Last Admin: 01/21/20 08:27 Dose: 0.4 mg Documented by: Tramadol HCl (Ultram) 25 mg PO Q4H PRN PRN Reason: Pain Stop: 02/13/20 01:46
[2020-01-21 11:38] VITALS: TEMP 98.2
--- NOTE | 2020-01-21 13:58 | Pharmacy Report ---
Glycemic Control Progress Note - Date of Service January 21, 2020 - Scope Glycemic Pharmacist consulted for glycemic control to write orders per [facility] inpatient glycemic control protocol. - Objective Accuchecks BSG(last 24 hours):: 01/20/20 01/20/20 01/21/20 16:34 20:08 05:42 Glucose 184 H POC Glucose 211 H 148 H 01/21/20 01/21/20 07:21 11:51 Glucose POC Glucose 138 H 257 H HbA1c:: Hemoglobin A1c 9.1 % (4.5-5.6) H 01/13/20 22:48 - Recent Pertinent Medications The patient is currently receiving: * Basal insulin: Lantus 25 units every 24 hours * Correctional Insulin: Novolog Correction per scale ACHS Goal Range: Low 110 mg/dL - High 140 mg/dL Correction Factor: 20 mg/dL/unit * Prandial insulin: Per carb ratio of 1 unit per 7 grams CHO consumed - Outpatient Anti-Diabetic Meds Jardiance 25 mg PO daily Lantus 45 units BID Novolog 45 units TIDM - Assessment & Plan ASSESSMENT: * See progress note from 01/14/20 for more background info, in short: * Pt receiving SQ basal bolus insulin regimen for hyperglycemia secondary to baseline DM (outpatient regimen on hold). * Patient is currently receiving an average of ~55 units of insulin per day * 25 units of basal insulin * 36 units of prandial/correctional insulin * BSGs ranging 118 - 223 mg/dl over the past 24hrs * Changes needed to insulin regimen: * AM Fasting BSG = 138 mg/dl. This is in goal range for patient based on inpatient targets and co-morbidities. Therefore Basal insulin will be continued with a higher dose available. * Post-prandial BSGs trended upwards significantly after lunch. Tightened CF/CR. * Total daily dose = ~60 units. Increased insulin as appropriate. PLAN FOR INPATIENT GLYCEMIC CONTROL: * Continuing Lantus 25 units SQ qAM (30 units if BSG > 180 mg/dL) * TIGHTENING correction factor to 18 mg/dl/unit * TIGHTENING carb ratio to 1 unit per 6 grams CHO consumed * Continuing goal range of Low 110 mg/dL - High 140 mg/dL RECOMMENDATIONS FOR DISCHARGE: * Patient's regimen at home was very insulin intensive --- patient was having low BSGs plus was not checking blood sugars. * Simplify regimen for now and recommend follow-up with [facility]. * Lantus 30 units qAM * Jardiance 25 mg PO daily (no hepatic dose adjustment; do not use if eGFR < 45 mL/min) Thank you.
[2020-01-21 15:17] VITALS: BP 99/59; PULSE 64
--- NOTE | 2020-01-22 08:08 | Discharge Summary ---
Date of Service January 22, 2020 Admission HPI Per Admitting Provider History obtained from patient, family, and records. Limited history from patient secondary to disorientation. Medical history significant for cirrhosis secondary to nonalcoholic fatty liver disease, DM2, insulin requiring, CAD sp stenting, HTN, severe aortic stenosis status post AVR, chronic renal insufficiency (baseline creatinine of 1.3), past tobacco abuse. Recent confinement May 2017 for hepatic encephalopathy. Patient found by family members on the floor at his home today. Patient noted to be disoriented. Does not recall falling. Denies chest pain, S OB. Denies abdominal pain, unusual abdominal distention. Black stools for some time now as per patient. BSG noted to be 50s at home. Patient given juice and peanut butter by family. Patient brought to the ER for evaluation. MEDICAL HISTORY: As above. 2018 EGD showed portal hypertensive gastropathy; Colonoscopy showed diverticulosis, polyp, internal hemorrhoids SURGERIES: Hemorrhoidectomy, back surgery. Aortic valve replacement FAMILY HISTORY: Heart disease. Diabetes, stroke PERSONAL AND SOCIAL HISTORY: Past tobacco abuse. No chronic intake of alcoholic beverages. Retired from [employer] work, [id number] acts as caregiver. Principal Diagnosis Encephalopathy-resolved, cirrhosis, hypoglycemia, GLENYS-resolved Discharge Exam Constitutional well developed, well nourished and + ill appearing; no acute distress Eyes PERRL, conjunctivae normal, anicteric sclerae ENMT external ear and nose normal, oropharynx normal Neck trachea midline, no thyromegaly Respiratory normal respiratory effort; no respiratory distress Auscultation: lungs clear to auscultation bilaterally ( With occasional crackles at the bases) Cardiovascular Rate/Rhythm: regular rate and regular rhythm Heart Sounds: no murmur Gastrointestinal (Abdomen) Inspection/Auscultation: abdomen normal to inspection, + abdomen distended and normal bowel sounds Percussion/Palpation: abdomen soft; abdomen nontender Neurologic moves all extremities; no focal motor deficits Lymphatic no cervical or axillary lymphadenopathy Discharge Data Allergies Allergy/AdvReac Type Severity Reaction Status Date / Time PRASHANT Inhibitors Allergy Severe ANGIOEDEMA Verified 01/13/20 22:22 from 10/10/11 ED adm lisinopril Allergy Severe Edema - Verified 01/13/20 22:22 face, lips and tongue simvastatin Allergy Unknown RASH, SORE Verified 01/13/20 22:22 ALL OVER. 2013: Uses Crestor Consultations 01/13/20 23:44 ED Decision to Admit Stat 01/14/20 01:47 Consult Case Management - Discharge Planning Routine Consult Gastroenterology Routine Ordered Studies 01/13/20 22:04 CT head/brain wo con Urgent Hospital Course (1) Encephalopathy: Hepatic encephalopathy likely precipitated by hypoglycemia episode, and GLENYS, in the setting of NAFLD cirrhosis, less likely upper GI bleed Has been getting lactulose and rifaximin Ammonia level went down to 35 from 117 Remains minimally drowsy but no other acute symptoms Appreciate GI input and recommendation We will get PT and OT evaluation for possible discharge Remains stable without any acute symptoms Likely be transferred to SNF when there is a bed Hypoglycemic episode at home complicated by GLENYS on CKD DM2 insulin requiring, suboptimal control as of recent outpatient hemoglobin A1c of 8.25 May 2019 Appreciate glycemic pharmacist input and recommendation No more hypoglycemia GLENYS on CKD GLENYS also improved after IV fluids and holding diuretics Creatinine down to 1.22, creatinine on admission 1.49 We will stop IV fluids, plan to restart home diuretics tomorrow Creatinine normalized as of 01/16/2020 and remains normal Possible GI bleed has been ruled out Initially concern for upper GI bleed, and IV PPI started Also initially concern for possible SBP, and IV ceftriaxone started on admission GI consulted, upper GI bleed seems less likely Hemoglobin 13.4 as of 01/21/2020 Anemia and thrombocytopenia, in the setting of chronic liver disease -Continue to monitor for any signs of bleed -Hemoglobin stable at 12.7 on -Platelet count remains low at 69 as of 01/19/2020 Hx CAD sp stenting HTN, stable Hx aortic stenosis status post AVR, past tobacco abuse DVT prophylaxis. SCDs Dispo: PT /OT eval -recommend inpatient rehab, as patient is high risk for fall Code status: DNR as per the patient's prior wishes as per [id number], Ms. Irena Quintero. She can be contacted at . Irena was contacted by me and also by case management however not able to reach her, I will try to contact her again. The contact number for Irena Quintero is not responding Will be discharged to SNF when approved He was advised to ask his family members to give me a call for an update Total Time Total Time Spent Total Time Spent (In Minutes): 40 minutes Total Time Includes: Examination of the Patient, Discharge Planning, Medication Reconciliation and Communication With Other Providers Discharge Plan Discharge Items Patient Disposition: Home - Home Health Services Reason For Visit: ENCEPHALOPATHY, UGIB Discharge Diagnosis: Encephalopathy-resolved, cirrhosis, hypoglycemia, GLENYS-resolved Condition on Discharge: Fair Activity: Resume your previous activity Non-emergency contact: Primary Care Provider Call non-emergency contact if: you have any medication questions Follow-up/Referrals: Duglas Evans MD [Primary Care Provider] - 01/25/20 11:20 am (Your appointment is at [facility]) Diet: Carb Consistent or DM2 Addtl Attending Provider Instructions: Please take precaution to avoid fall-this is very important for you Make sure you have regular bowel movement You can adjust your doses of lactulose accordingly Pending Studies at Discharge: No Stand-Alone Forms: My [employer], Smoking Cessation Medications and DC Order Prescriptions: Continued potassium chloride 10 mEq Capsule, Extended Release 20 meq PO DAILY RF: 0 tamsulosin 0.4 mg capsule 0.4 mg PO DAILY RF: 0 pantoprazole 40 mg tablet,delayed release (DR/EC) 40 mg PO BID RF: 0 folic acid 1 mg tablet 1 mg PO DAILY RF: 0 metoprolol tartrate 25 mg tablet 25 mg PO BID RF: 0 ferrous gluconate 324 mg (38 mg iron) Tablet 324 mg PO BID RF: 0 rifaximin 550 mg Tablet 550 mg PO BID RF: 0 empagliflozin 25 mg Tablet 25 mg PO DAILY RF: 0 nitroglycerin 0.4 mg Tablet, Sublingual 0.4 mg sublingual UD PRN (Reason: Chest Pain) RF: 0 furosemide [Lasix] 20 mg Tablet 20 mg PO DAILY RF: 0 albuterol sulfate [Ventolin HFA] 90 mcg/actuation Hfa Aerosol Inhaler 2 puff INHALATION Q4H PRN (Reason: SHORT OF BREATH) RF: 0 fluticasone propionate [Flonase Allergy Relief] 50 mcg/actuation [place],Suspension 1 spray INTRANASAL DAILY RF: 0 lactulose 10 gram/15 mL (15 mL) Solution 45 ml PO QID RF: 0 magnesium oxide 400 mg magnesium Tablet 400 mg PO BID RF: 0 ipratropium-albuterol 0.5 mg-3 mg(2.5 mg base)/3 mL Solution For Nebulization 3 ml INHALATION QID RF: 0 dextromethorphan-guaifenesin 10-100 mg/5 mL Liquid 5 ml PO Q4H PRN (Reason: Cough) RF: 0 Changed Lantus Solostar U-100 Insulin 100 unit/mL (3 mL) insulin pen 30 unit subcut BID Qty: 0 RF: 0 Discontinued insulin aspart U-100 [Novolog Flexpen U-100 Insulin] 100 unit/mL (3 mL) insulin pen 45 unit subcut TIDM RF: 0 Discharge Orders: Discharge Order (Routine); Ordered 01/21/20 Ordered By: Precious Mcwilliams/Other Patient Handouts: Hyperglycemia, Hypoglycemia, Insulin Glargine injection Admission Data Admit Date/Time: 01/14/20 00:16 Attending Provider: Precious Ragland Admit Provider: Bj Davies Primary Care Provider: Duglas Evans Other Providers: Bj Davies ; Madeline Chan ; Sara Holly ; Agus Fritz ; Bia Flores ; Armando Green ; Zoraida Cleaning ; Kiran Russell ; Adriana Pritchett ; Benitez Hankins ; José Christy ; Mariah Mcdaniel ; Rocio Garcia ; Neda Godinez ; Malissa Hartley ; Bernabe Salomon ; Tomas Terry ; [place] ; [facility] Other Interventions: Discharge Summary Assessment (RN) Last Done: 01/21/20 15:29 DC Date/Time DO NOT enter until pt leaves facility: 01/21/20 16:35
== END 2020-01-21 16:35 | disposition home health service (06) | DRG 442 ==
LOC: ED 21:50 → SUATTDRO 01-14 00:16 → 2N 01-14 00:16

== ENCOUNTER 2020-05-08 14:21 | Inpatient (IN) ==
[2020-05-08] MEDS ORDERED: SODIUM CHLORIDE 0.9% 500 ML IV ONE (14:40)
[2020-05-08 15:04] LABS: Hemoglobin 15.2 g/dL (14.0-18.0); Mean Corpuscular Hemoglobin 31.4 pg (25-34); Mean Corpuscular Hgb Conc 33.8 g/dL (32-36); RDW Coefficient of Variation 14.7 % (11.5-14.5); Red Blood Count 4.84 M/uL (4.7-6.1); White Blood Count 5.74 K/uL (4.8-10.8)
[2020-05-08 15:16] LABS: INR 1.1 (0.9-1.1); Partial Thromboplastin Ratio 1.1; Partial Thromboplastin Time 29.6 Seconds (21.0-31.0); Prothrombin Time 11.4 Seconds (9.0-12.0)
--- NOTE | 2020-05-08 15:27 | CT Scan Report ---
CT head/brain wo con CLINICAL HISTORY: 79 years-old Male with fall, confusion. Acutely altered mental status with fall TECHNIQUE: Multiple axial CT images of the head were obtained without contrast. A dose lowering tech nique was utilized adhering to the principles of ALARA. CT DOSE: 720.95 mGycm COMPARISON: Head CT 03/16/2020. FINDINGS: No acute intracranial hemorrhage, midline shift, intracranial mass, hydrocephalus, territorial ischem ia or abnormal extra-axial collection. Age-related involutional changes. Mild patchy white matter hyp odensities suggest chronic microvascular ischemic disease. 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 Cerebral vascular calcifications. The calvarium is intact. The paranasal sinuses, mastoid air cells, and middle ear cavities are clear . IMPRESSION: No acute intracranial abnormality or calvarial fracture. ACT 112: Negative or not required by law. The above report was generated using voice recognition software. It may contain grammatical, syntax o r spelling errors. Electronically signed by: David Abad M.D. 05/08/2020 3:26 PM
[2020-05-08 15:32] LABS: Mean Platelet Volume 10.7 fL (7.4-10.4); Platelet Count 73 K/uL (130-400)
[2020-05-08 15:39] LABS: Basophils # (auto) 0.04 K/uL (0-0.2); Basophils % (auto) 0.7 %; Eosinophils # (auto) 0.24 K/uL (0-0.5); Eosinophils % (auto) 4.2 %; Immature Granulocytes # (auto) 0.01 K/uL (0.00-0.02); Immature Granulocytes % (auto) 0.2 %; Lymphocytes # (auto) 0.84 K/uL (1.2-3.4); Lymphocytes % (auto) 14.6 %; Monocytes # (auto) 0.62 K/uL (0.11-0.59); Monocytes % (auto) 10.8 %; Neutrophils # (auto) 3.99 K/uL (1.4-6.5); Neutrophils % (auto) 69.5 %
[2020-05-08 15:46] LABS: Appearance Urine Clear (Clear); Bilirubin Urine Negative (Negative); Blood Urine Negative (Negative); Color Urine Yellow; Glucose Urine UA 3+ (Negative); Ketones Urine Negative (Negative); Leukocyte Esterase Urine Negative (Negative); Nitrite Urine Negative (Negative); Protein Urine Negative (Negative); Specific Gravity Urine 1.036 (1.000-1.030); Urobilinogen Urine Negative (Negative)
[2020-05-08 15:48] LABS: Alanine Aminotransferase 49 U/L (12-78); Albumin Level 2.9 gm/dl (3.4-5.0); Aspartate Aminotransferase 71 U/L (15-37); Bilirubin Direct 0.3 mg/dl (0-0.2); Bilirubin,Total 1.4 mg/dl (0.2-1); Blood Urea Nitrogen 19 mg/dl (7-18); Calcium 9.2 mg/dl (8.5-10.1); Carbon Dioxide 27 mmol/L (21-32); Chloride 104 mmol/L (98-107); Est GFR (African American) 64.7; Est GFR (Non-African American) 55.8; Glucose 305 mg/dl (70-99); Magnesium 2.5 mg/dl (1.8-2.4); Phosphorus 2.5 mg/dl (2.5-4.9); Potassium 4.5 mmol/L (3.5-5.1); Sodium 135 mmol/L (136-145); Total Protein 6.4 gm/dl (6.4-8.2); Troponin I < 0.015 ng/ml (0-0.045)
[2020-05-08 15:49] LABS: Albumin Globulin Ratio 0.8 (0.9-2); Alkaline Phosphatase 325 U/L (45-117); BUN Creatinine Ratio 15.3 (10-20); Globulin 3.5 gm/dl (2.5-4.0); Lipase 284 U/L (73-393)
[2020-05-08] MEDS ORDERED: LACTULOSE SYRUP 30 GM/45 ML UDP PO STA (16:00)
--- NOTE | 2020-05-08 16:06 | XRay Report ---
XR chest 1V portable HISTORY: 79 years-old Male Chest Pain acute atypical chest pain COMPARISON: Chest radiograph 03/16/2020 TECHNIQUE: Portable AP view of the chest FINDINGS: Cardiomediastinal and hilar silhouettes are within normal limits. Calcified plaque of the thoracic ao rtic arch. Chronic interstitial coarsening. There is no pneumothorax, pleural effusion or overt pulmo nary edema. Degenerative changes of the shoulders and spine. IMPRESSION: No acute process. ACT 112: Negative or not required by law. The above report was generated using voice recognition software. It may contain grammatical, syntax o r spelling errors. Electronically signed by: David Abad M.D. 05/08/2020 4:05 PM
--- NOTE | 2020-05-08 16:20 | Communication Note ---
Date of Service: May 08, 2020 Pt sent to ED, recommendation of GI provider given concern for increasing falls at home, confusion, ?medication compliance and safety at home. Discussed with ED provider. Recommend workup for falls and HE to include infectious panel, chest XR, head CT. He did have OP head CT, however, report is not currently available to me. Would recommend admission for observation. Consider getting case management involved.
[2020-05-08 16:26] LABS: Beta-Hydroxybutyrate 0.84 mg/dl (0.2-2.81)
--- NOTE | 2020-05-08 16:48 | History & Physical Report ---
Date of Service May 08, 2020 Assessment & Plan (1) Hepatic encephalopathy: This is an 79yo M with a PMH of HEBERT cirrhosis, insulin-dependent type II diabetes, hypertension, h/o TAVR, chronic ischemic heart disease, CKD III and other medical problems listed below who was directed to ED per GI for evaluation of hepatic encephalopathy and frequent falls. -Likely noncompliance with full lactulose dose, having 2 BMs daily instead of the goal of 3-4 -Ammonia significantly elevated to 209 in clinic setting, 77.6 here. Tbili 1.4, AST 71 ALT 49 alk phos 325 plt 73 -CT head without acute abnormality, no evidence of infection in urine or chest x-ray. Blood cultures pending. Afebrile, normal white count -Given additional lactulose dose in ED. Lactulose 40g BID, titrate for goal BM 3-5x a day, continue Xifaxan 550mg BID, ;ow sodium diet -Routine GI consult (2) Frequent falls: PT/OT evaluation. Case management consulted for possible SNF placement (3) Insulin dependent diabetes mellitus: Initial BSG 305 -Hold home agents -Basal/bolus insulin per protocol, consider glycemic consult if needed -BSG AC HS (4) CAD (coronary artery disease): No chest pain or EKG changes. Continue beta wesly (5) CKD (chronic kidney disease), stage III: Kidney function at baseline. Continue to monitor with daily BMP DVT Ppx: SCDs in setting of thrombocytopenia Code status: DNR per discussion with patient, advanced directives PCP: Cristina Dispo: Admitted to [facility]. Discharge planning ordered. Patient seen in collaboration with Dr. Pham. Please see addendum. History of Present Illness Chief Complaint: Confusion, falls at home Primary Care Provider: Duglas Evans MD This is an 79yo M with a PMH of HEBERT cirrhosis, insulin-dependent type II diabetes, hypertension, h/o TAVR, chronic ischemic heart disease, CKD 3 and other medical problems listed below who was directed to ED per GI for evaluation of confusion and frequent falls. Ooatyyrf-kw-boy at bedside, who helped with history due to patient's encephalopathic state. Over the past few days, patient has been notably more confused. Normally [id number], Irena, comes over to fill pillboxes. Has noticed that patient has not been taking as much lactulose as normal, with approximately 2 bowel movements daily (with the goal being 3-4). Currently only oriented to self and place, not to time or situation. Has had a few falls over the past few days due to "tripping over things". Ambulates with a cane. Denies any loss of consciousness or head trauma. Evaluated in outpatient setting by GI, and found to have elevated ammonia over 200. Sent in for further evaluation for hepatic encephalopathy as well as likely SNF placement due to ambulatory dysfunction and falls. Denies any pain. No fever, chills, lightheadedness, chest pain, abdominal pain or lower extremity swelling. Remaining ROS difficult to obtain due to confused state. Allergies Allergy/AdvReac Type Severity Reaction Status Date / Time PRASHANT Inhibitors Allergy Severe ANGIOEDEMA Verified 05/08/20 15:28 from 10/10/11 ED adm lisinopril Allergy Severe Edema - Verified 05/08/20 15:28 face, lips and tongue simvastatin Allergy Unknown RASH, SORE Verified 05/08/20 15:28 ALL OVER. 2013: Uses Crestor Home Medications Home Medications Medication Instructions Recorded Confirmed Type empagliflozin 25 mg PO DAILY 01/14/19 05/08/20 History ferrous gluconate 324 mg PO BID 01/14/19 05/08/20 History folic acid 1 mg PO DAILY 01/14/19 05/08/20 History metoprolol tartrate 25 mg PO BID 01/14/19 05/08/20 History potassium chloride 20 meq PO DAILY 01/14/19 05/08/20 History rifaximin 550 mg PO BID 01/14/19 05/08/20 History tamsulosin 0.4 mg PO DAILY 01/14/19 05/08/20 History albuterol sulfate [Ventolin HFA] 2 puff INHALATION Q4H PRN 02/20/19 05/08/20 History fluticasone propionate [Flonase 1 spray INTRANASAL DAILY 02/20/19 05/08/20 History Allergy Relief] furosemide [Lasix] 20 mg PO DAILY 02/20/19 05/08/20 History lactulose 40 g PO BID 02/20/19 05/08/20 History magnesium oxide 400 mg PO BID 02/20/19 05/08/20 History nitroglycerin 0.4 mg SUBLINGUAL UD PRN 02/20/19 05/08/20 History ipratropium-albuterol 3 ml INHALATION QID 01/13/20 05/08/20 History Lantus Solostar U-100 Insulin 60 unit SUBCUT DAILY 03/16/20 05/08/20 History escitalopram oxalate 5 mg PO DAILY 05/08/20 05/08/20 History pantoprazole 40 mg PO BID 05/08/20 05/08/20 History Past Med/Surg History Medical History Anemia Anxiety Aortic stenosis "severe on echo 04/2017" On 07/03/16 17:13 Cande Poon wrote "severe on echo 04/2016" CAD (coronary artery disease) "2009 - RCA stent 2012 - RCA stent restenosis, s/p AMOS to RCA" Cirrhosis of liver not due to alcohol CKD (chronic kidney disease), stage III Diverticulosis Dyslipidemia GERD (gastroesophageal reflux disease) Hepatic encephalopathy Hiatal hernia HTN (hypertension) Insulin dependent diabetes mellitus Osteoarthritis Portal hypertensive gastropathy Transaminitis Surgical History H/O hemorrhoidectomy History of cardiac catheterization NO STENTS History of colonoscopy History of lumbar laminectomy History of tooth extraction Family History Son Family history of diabetes mellitus Family/Other Family hx of colon cancer Social History Smoking Status: Former smoker Second Hand Exposure: Yes; Do You Dip or Chew Tobacco: No; Hx Alcohol Use: No (former) Hx Substance Use: No Preferred Language: Barbadian Communication Ability: Effective Marketing Development Specialist Required: No Beliefs That Will Affect Care: None marital status: / Current Living Situation: Alone How many Children do You have: 3 Feels Safe at Home: Yes Review of Systems Review of Systems: At least ten systems reviewed and negative except as noted in the HPI. Physical Exam Physical Exam: General Appearance: WD/WN, vitals as above, NAD, sitting up in bed Head: normocephalic, atraumatic Eyes: normal inspection, PERRL, conjunctivae normal, anicteric sclerae ENT: external ear and nose normal, oropharynx normal Neck: normal visual inspection, trachea midline, no thyromegaly Respiratory: normal respiratory effort, lungs clear to auscultation, no wheeze, rales, rhonchi. No accessory muscle use Cardiovascular: regular rate, rhythm, no murmur, normal peripheral pulses, no BLE edema. Vessels: no JVD Chest: normal inspection of chest Abdomen/GI: normal bowel sounds, slightly distended but nontender, no hepatosplenomegaly Extremities/Musculoskeletal: no cyanosis or clubbing, extremities motor strength 5/5 Neurologic: PERRL, EOMI, accommodation nl, no face palsy, no dysarthria, CN's II-XI intact bilaterally and moves all extremities Psychiatric: A+O to person and place, pleasantly confused Skin: no rashes, normal color, warm/dry Results & Data Results & Data ([facility]) Vital Signs (Past 12 Hours) Vital Signs Temp Pulse Resp BP Pulse Ox 05/08/20 16:30 57 L 18 130/59 L 96 05/08/20 16:00 59 L 19 129/56 L 96 05/08/20 15:30 69 22 05/08/20 15:00 61 21 05/08/20 14:57 98 05/08/20 14:41 61 20 95 05/08/20 14:37 61 19 133/64 95 05/08/20 14:27 36.9 C 63 20 115/57 L 95 Laboratory Results Short CBC 05/08/20 Range/Units 14:47 WBC 5.74 (4.8-10.8) K/uL Hgb 15.2 (14.0-18.0) g/dL Hct 45.0 (42-52) % Plt Count 73 L (130-400) K/uL BMP 05/08/20 14:47 Sodium 135 L Potassium 4.5 Chloride 104 Carbon Dioxide 27 BUN 19 H Creatinine 1.21 Glucose 305 H* Calcium 9.2 Cardiac Enzymes 05/08/20 Range/Units 14:47 Troponin I < 0.015 (0-0.045) ng/ml Liver Function 05/08/20 Range/Units 14:47 Total Bilirubin 1.4 H (0.2-1) mg/dl Direct Bilirubin 0.3 H (0-0.2) mg/dl AST 71 H (15-37) U/L ALT 49 (12-78) U/L Alkaline Phosphatase 325 H (45-117) U/L Albumin 2.9 L (3.4-5.0) gm/dl Urine 05/08/20 Range/Units Unknown Urine Color Yellow Urine Appearance Clear (Clear) Urine pH 6.0 (4.5-7.5) Ur Specific Purchase 1.036 H (1.000-1.030) Urine Protein Negative (Negative) Urine Glucose (UA) 3+ H (Negative) Diagnostic Findings CT head: IMPRESSION: No acute intracranial abnormality or calvarial fracture. CXR: IMPRESSION: No acute process. Supervising Physician Co-Signing Physician Notes Attending addendum: Patient seen and examined, care coordinated with Enid Rushing PA-C This is a 79-year-old male with past medical history of Hebert cirrhosis insulin- dependent type 2 diabetes hypertension Presented to the ER with symptoms of confusion ambulatory dysfunction fall Patient has not been taking lactulose for the past few days, noted to have ammonia elevation 209 GI recommend inpatient admission with continued lactulose No evidence of infection or GI bleed noted Physical exam: Please refer to exam done by Enid Rushing PA-C Hepatic encephalopathy, and history of Hebert cirrhosis noncompliant with lactulose Admit to telemetry, continue lactulose dose as directed by GI Ruled out other cause of precipitation of encephalopathy: UTI/infection/GI bleed Please refer to further documentation by Enid Rushing PA-C for discussion of other medical issues Nida Pham MD
[2020-05-08] MEDS ORDERED: CARBOHYDRATES FOR HYPOGLYCEMIA PO PRN (20:29)
[2020-05-08] MEDS ORDERED: GLUCOSE 40% GEL 15 GM TUBE PO PRN (20:29)
[2020-05-08] MEDS ORDERED: ALBUTEROL HFA 8 GM INHALER INH PRN (20:29)
[2020-05-08] MEDS ORDERED: DEXTROSE 50% 50 ML SYRINGE IV PRN (20:29)
[2020-05-08] MEDS ORDERED: GLUCAGON FOR INJ 1 MG VIAL SQ PRN (20:29)
[2020-05-08] MEDS ORDERED: NITROGLYCERIN SL 0.4 MG/TAB TAB SL PRN (20:29)
[2020-05-08] MEDS ORDERED: ONDANSETRON INJ 2 MG/ML 2 ML VIAL IV PRN (20:29)
[2020-05-08] MEDS ORDERED: GLUCOSE 10 TABS/TUBE PO PRN (20:29)
[2020-05-08] MEDS: ALBUT/IPRATROP 3MG/0.5MG NEB 3 ML VIAL INH SCH (21:36)
[2020-05-08] MEDS: LACTULOSE SYRUP 20 GM/30 ML UDC PO SCH (21:56)
[2020-05-08] MEDS: FERROUS GLUCONATE 324 MG TAB PO SCH (21:56)
[2020-05-08] MEDS: RIFAXIMIN 550 MG TABLET PO SCH (21:57)
[2020-05-08] MEDS: MAGNESIUM OXIDE 400 MG TAB PO SCH (21:57)
[2020-05-08] MEDS: PANTOprazole 40 MG TAB PO SCH (21:58)
[2020-05-08] MEDS: METOPROLOL TARTRATE 25 MG TAB PO SCH (22:05)
[2020-05-08] MEDS: INSULIN GLARGINE SOLOSTAR 100 UNITS/ML 3 ML PEN SC SCH (22:14)
[2020-05-08] MEDS: INSULIN ASPART 100 UNITS/ML 3 ML PEN SC SCH (23:11)
--- NOTE | 2020-05-08 23:31 | Emergency Department Note ---
Impression & Plan Hepatic encephalopathy, Cirrhosis of liver not due to alcohol, Insulin dependent diabetes mellitus, Recurrent falls, Generalized weakness ED Provider Note NAME: RADHA ENRIQUEZ AGE: 79 SEX: M ARRIVES VIA: Walk-In INFORMANT: Patient, ED PROVIDER(S): Perfecto Quinteros MD CHIEF COMPLAINT: Confusion, weakness, Elevated ammonia PLAN: Disposition: Admit MEDICAL DECISION MAKING: The patient is a pleasant 79-year-old gentleman with a past medical history of Ehbert cirrhosis, IDDM 2, hypertension, CAD, history of TAVR, CKD who presents emergency department for generalized weakness and confusion after being seen by GI yesterday with blood work that showed acutely elevated ammonia in the 200s in the setting of having recurrent falls. The patient and at the bedside deny any recent fevers, cough, congestion, nausea, vomiting. They report he is ta sukhwinder his lactulose and is having 2-3 bowel movements a day. Does not feel he is significantly confused per se but she does acknowledge that he is more weak than usual. On arrival the patient is in no acute distress, afebrile with stable vital signs. The patient does appear clinically dry. He has subtle asterixis of bilateral upper extremities. Abdomen is soft and not distended. I did discuss the case with [facility] and they confirmed recommendations for admission and observation given the patient's recently elevated ammonia and worsening functional status at home. EKG without overt acute ischemia. Chest x-ray negative for acute process. WBC, H/H within normal limits. Platelets 73 K, 2 prior range of values in setting of the patient cirrhosis. INR within normal limits. Glucose 305 however chemistry without acidosis. BUN elevated at 19 consistent with the patient's clinically dry appearance. Lactate within normal limits. Total bilirubin 1.4 similar to prior value. AST 71 also similar to prior value. Ammonia 77 which is improved from yesterday's [facility] value of 200. UA without convincing evidence of infection. CT the head was negative in the setting of having repeat fall yesterday. She was ordered for dose of lactulose. Patient and at bedside are agreeable with plan for admission as initially planned. Case was discussed with Enid Rushing, [facility] PAC, with Dr. Pham, [facility] hospitalist, who will evaluate the patient for admission. Triage Nursing notes reviewed and agree them. Additional history obtained from [facility] records Prior medical records reviewed Vital Signs: reviewed and remarkable for no significant abnormalities Differential diagnosis: Infection, dehydration, metabolic abnormality, hypo/hyperglycemia, electrolyte disturbance, anemia, hypoxia, cardiac sources, intracerebral event, toxicologic, neurologic, as well as other pathologies. ER treatment provided: See below. Diagnostics interpreted by me: ECG: Normal sinus rhythm, 60 bpm, no ectopy, no overt ST elevation or depression, QTC 446, QRS 82. Cardiac Monitoring: An order for continuous cardiac monitoring was placed and demonstrated sinus rhythm, 60 bpm, no ectopy. Laboratory studies: See below Imaging studies: XR chest 1V portable HISTORY: 79 years-old Male Chest Pain acute atypical chest pain COMPARISON: Chest radiograph 03/16/2020 TECHNIQUE: Portable AP view of the chest FINDINGS: Cardiomediastinal and hilar silhouettes are within normal limits. Calcified plaque of the thoracic aortic arch. Chronic interstitial coarsening. There is no pneumothorax, pleural effusion or overt pulmonary edema. Degenerative changes of the shoulders and spine. CT head/brain wo con CLINICAL HISTORY: 79 years-old Male with fall, confusion. Acutely altered mental status with fall TECHNIQUE: Multiple axial CT images of the head were obtained without contrast. A dose lowering technique was utilized adhering to the principles of ALARA. CT DOSE: 720.95 mGycm COMPARISON: Head CT 03/16/2020. FINDINGS: No acute intracranial hemorrhage, midline shift, intracranial mass, hydrocephalus, territorial ischemia or abnormal extra-axial collection. Age- related involutional changes. Mild patchy white matter hypodensities suggest chronic microvascular ischemic disease. 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 Cerebral vascular calcifications. The calvarium is intact. The paranasal sinuses, mastoid air cells, and middle ear cavities are clear. IMPRESSION: No acute intracranial abnormality or calvarial fracture. Consultation(s): Case was discussed with Enid Rushing [facility] PAC, with Dr. Pham, [facility] hospitalist, who will evaluate the patient for admission. HPI: The patient is a pleasant 79-year-old gentleman with a past medical history of Hebert cirrhosis, IDDM 2, hypertension, CAD, history of TAVR, CKD who presents emergency department for generalized weakness and confusion after being seen by GI yesterday with blood work that showed acutely elevated ammonia in the 200s in the setting of having recurrent falls. The patient and at the bedside deny any recent fevers, cough, congestion, nausea, vomiting. They report he is taking his lactulose and is having 2-3 bowel movements a day. Does not feel he is significantly confused per se but she does acknowledge that he is more weak than usual. ROS: See above HPI for pertinent positives & negatives. A total of 10 systems reviewed and were otherwise negative. PAST MEDICAL HISTORY:See Below PAST SURGICAL HISTORY:See Below FAMILY HISTORY:See Below SOCIAL HISTORY:See Below HOME MEDICATIONS:See Below ALLERGIES:See Below VITALS:See Below PHYSICAL EXAMINATION: GENERAL: Awake, alert, fatigued-appearing, in no distress HENT: Normocephalic, atraumatic. Oropharynx with dry mucous membranes and otherwise unremarkable. EYES: Normal conjunctiva. Sclera non-icteric. NECK: Supple. No nuchal rigidity. FROM. No JVD. RESPIRATORY: Clear to auscultation. CARDIAC: Regular rate, normal rhythm. 3/6 systolic murmur. Extremities warm and well perfused. Pulses equal. ABDOMEN: Soft, non-distended. No tenderness to palpation. No rebound or guarding. No masses. RECTAL: Deferred. MUSCULOSKELETAL: Chest examination reveals no tenderness. The back is symmetrical on inspection without obvious abnormality. There is no CVA tenderness to palpation. No joint edema. LOWER EXTREMITIES: Calves are equal size bilaterally and non-tender. No edema. No discoloration. NEURO: Normal sensorium. No sensory or motor deficits noted. Subtle asterixis of bilateral upper extremities. SKIN: No rash or jaundice noted. Perfecto Quinteros MD Past Med/Surg History Medical History Anemia Anxiety Aortic stenosis "severe on echo 04/2017" On 07/03/16 17:13 Cande Poon wrote "severe on echo 04/2016" CAD (coronary artery disease) "2009 - RCA stent 2012 - RCA stent restenosis, s/p AMOS to RCA" Cirrhosis of liver not due to alcohol CKD (chronic kidney disease), stage III Diverticulosis Dyslipidemia GERD (gastroesophageal reflux disease) Hepatic encephalopathy Hiatal hernia HTN (hypertension) Insulin dependent diabetes mellitus Osteoarthritis Portal hypertensive gastropathy Transaminitis Surgical History H/O hemorrhoidectomy History of cardiac catheterization NO STENTS History of colonoscopy History of lumbar laminectomy History of tooth extraction Family History Son Family history of diabetes mellitus Family/Other Family hx of colon cancer Social History Smoking Status: Former smoker Second Hand Exposure: Yes; Do You Dip or Chew Tobacco: No; Hx Alcohol Use: No (former) Hx Substance Use: No Preferred Language: Sinhala Communication Ability: Effective 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 2013: Uses Mobile Safe Case Meds Home Medications Medication Instructions Recorded Confirmed empagliflozin 25 mg PO DAILY 01/14/19 05/08/20 ferrous gluconate 324 mg PO BID 01/14/19 05/08/20 folic acid 1 mg PO DAILY 01/14/19 05/08/20 metoprolol tartrate 25 mg PO BID 01/14/19 05/08/20 potassium chloride 20 meq PO DAILY 01/14/19 05/08/20 rifaximin 550 mg PO BID 01/14/19 05/08/20 tamsulosin 0.4 mg PO DAILY 01/14/19 05/08/20 albuterol sulfate [Ventolin HFA] 2 puff INHALATION Q4H PRN 02/20/19 05/08/20 fluticasone propionate [Flonase 1 spray INTRANASAL DAILY 02/20/19 05/08/20 Allergy Relief] furosemide [Lasix] 20 mg PO DAILY 02/20/19 05/08/20 lactulose 40 g PO BID 02/20/19 05/08/20 magnesium oxide 400 mg PO BID 02/20/19 05/08/20 nitroglycerin 0.4 mg SUBLINGUAL UD PRN 02/20/19 05/08/20 ipratropium-albuterol 3 ml INHALATION QID 01/13/20 05/08/20 Alondra Arcosar U-100 Insulin 60 unit SUBCUT DAILY 03/16/20 05/08/20 escitalopram oxalate 5 mg PO DAILY 05/08/20 05/08/20 pantoprazole 40 mg PO BID 05/08/20 05/08/20 Results & Data (ED) Vital Signs Vital Signs - 24 hr 05/08/20 14:27 05/08/20 14:37 05/08/20 14:41 Temperature 36.9 C Temperature Source Oral Pulse Rate 63 61 61 Pulse Rate from SpO2 Sensor 61 61 Respiratory Rate 20 19 20 Blood Pressure 115/57 L 133/64 Blood Pressure Mean 76 83 Pulse Oximetry 95 95 95 Oxygen Delivery Method Room Air Sepsis Recent Fever Within 48 Hours No Sepsis New/Unexplained Change in Mental Status No Sepsis Action Taken by Nursing No Action Required 05/08/20 14:57 05/08/20 15:00 05/08/20 15:30 Temperature Temperature Source Pulse Rate 61 69 Pulse Rate from SpO2 Sensor Respiratory Rate 21 22 Blood Pressure Blood Pressure Mean Pulse Oximetry 98 Oxygen Delivery Method Room Air Sepsis Recent Fever Within 48 Hours Sepsis New/Unexplained Change in Mental Status Sepsis Action Taken by Nursing 05/08/20 16:00 05/08/20 16:30 Temperature Temperature Source Pulse Rate 59 L 57 L Pulse Rate from SpO2 Sensor 60 57 L Respiratory Rate 19 18 Blood Pressure 129/56 L 130/59 L Blood Pressure Mean 79 79 Pulse Oximetry 96 96 Oxygen Delivery Method Sepsis Recent Fever Within 48 Hours Sepsis New/Unexplained Change in Mental Status Sepsis Action Taken by Nursing Laboratory Data Attestation: I reviewed the patient's lab results. Result diagrams: 05/08/20 14:47 05/08/20 14:47 Lab Results 05/08/20 05/08/20 05/08/20 Range/Units 14:47 14:47 14:47 WBC 5.74 (4.8-10.8) K/uL RBC 4.84 (4.7-6.1) M/uL Hgb 15.2 (14.0-18.0) g/dL Hct 45.0 (42-52) % MCV 93.0 (80-100) fL MCH 31.4 (25-34) pg MCHC 33.8 (32-36) g/dL RDW Std Deviation 50.0 H (36.4-46.3) fL RDW Coeff of Adrian 14.7 H (11.5-14.5) % Plt Count 73 L (130-400) K/uL MPV 10.7 H (7.4-10.4) fL Immature Gran % (Auto) 0.2 % Neut % (Auto) 69.5 % Lymph % (Auto) 14.6 % [place] % (Auto) 10.8 % Eos % (Auto) 4.2 % Baso % (Auto) 0.7 % Neut # (Auto) 3.99 (1.4-6.5) K/uL Lymph # (Auto) 0.84 L (1.2-3.4) K/uL [place] # (Auto) 0.62 H (0.11-0.59) K/uL Eos # (Auto) 0.24 (0-0.5) K/uL Baso # (Auto) 0.04 (0-0.2) K/uL Immature Gran # (Auto) 0.01 (0.00-0.02) K/uL PT 11.4 (9.0-12.0) Seconds INR 1.1 (0.9-1.1) APTT 29.6 (21.0-31.0) Seconds PTT Ratio 1.1 Sodium 135 L (136-145) mmol/L Potassium 4.5 (3.5-5.1) mmol/L Chloride 104 (98-107) mmol/L Carbon Dioxide 27 (21-32) mmol/L Anion Gap 5.0 (3-11) BUN 19 H (7-18) mg/dl Creatinine 1.21 (0.6-1.4) mg/dl Est Cr Clr Drug Dosing Not Reportable Est GFR ( Amer) 64.7 Est GFR (Non-Af Amer) 55.8 BUN/Creatinine Ratio 15.3 (10-20) Glucose 305 H* (70-99) mg/dl Lactate (0.4-2.0) mmol/L Calcium 9.2 (8.5-10.1) mg/dl Phosphorus 2.5 (2.5-4.9) mg/dl Magnesium 2.5 H (1.8-2.4) mg/dl Total Bilirubin 1.4 H (0.2-1) mg/dl Direct Bilirubin 0.3 H (0-0.2) mg/dl AST 71 H (15-37) U/L ALT 49 (12-78) U/L Alkaline Phosphatase 325 H (45-117) U/L Ammonia (11-32) umol/L Troponin I < 0.015 (0-0.045) ng/ml Total Protein 6.4 (6.4-8.2) gm/dl Albumin 2.9 L (3.4-5.0) gm/dl Globulin 3.5 (2.5-4.0) gm/dl Albumin/Globulin Ratio 0.8 L (0.9-2) Lipase 284 (73-393) U/L Beta-Hydroxybutyric Acd 0.84 (0.2-2.81) mg/dl TSH 3.130 (0.300-4.500) uIu/ml 05/08/20 05/08/20 Range/Units 14:47 15:02 WBC (4.8-10.8) K/uL RBC (4.7-6.1) M/uL Hgb (14.0-18.0) g/dL Hct (42-52) % MCV (80-100) fL MCH (25-34) pg MCHC (32-36) g/dL RDW Std Deviation (36.4-46.3) fL RDW Coeff of Adrian (11.5-14.5) % Plt Count (130-400) K/uL MPV (7.4-10.4) fL Immature Gran % (Auto) % Neut % (Auto) % Lymph % (Auto) % [place] % (Auto) % Eos % (Auto) % Baso % (Auto) % Neut # (Auto) (1.4-6.5) K/uL Lymph # (Auto) (1.2-3.4) K/uL [place] # (Auto) (0.11-0.59) K/uL Eos # (Auto) (0-0.5) K/uL Baso # (Auto) (0-0.2) K/uL Immature Gran # (Auto) (0.00-0.02) K/uL PT (9.0-12.0) Seconds INR (0.9-1.1) APTT (21.0-31.0) Seconds PTT Ratio Sodium (136-145) mmol/L Potassium (3.5-5.1) mmol/L Chloride (98-107) mmol/L Carbon Dioxide (21-32) mmol/L Anion Gap (3-11) BUN (7-18) mg/dl Creatinine (0.6-1.4) mg/dl Est Cr Clr Drug Dosing Est GFR ( Amer) Est GFR (Non-Af Amer) BUN/Creatinine Ratio (10-20) Glucose (70-99) mg/dl Lactate 1.5 (0.4-2.0) mmol/L Calcium (8.5-10.1) mg/dl Phosphorus (2.5-4.9) mg/dl Magnesium (1.8-2.4) mg/dl Total Bilirubin (0.2-1) mg/dl Direct Bilirubin (0-0.2) mg/dl AST (15-37) U/L ALT (12-78) U/L Alkaline Phosphatase (45-117) U/L Ammonia 77.6 H (11-32) umol/L Troponin I (0-0.045) ng/ml Total Protein (6.4-8.2) gm/dl Albumin (3.4-5.0) gm/dl Globulin (2.5-4.0) gm/dl Albumin/Globulin Ratio (0.9-2) Lipase (73-393) U/L Beta-Hydroxybutyric Acd (0.2-2.81) mg/dl TSH (0.300-4.500) uIu/ml Administered Medications Albuterol (Albut/Ipratrop 3mg/0.5mg Neb 3 Ml Vial) 3 ml INH QIDR GOSIA Stop: 06/07/20 20:59 Last Admin: 05/08/20 21:36 Dose: 3 ml Documented by: [id number] Ferrous Gluconate (Ferrous Gluconate 324 Mg Tab) 324 mg PO BID GOSIA Stop: 06/07/20 20:59 Last Admin: 05/08/20 21:56 Dose: 324 mg Documented by: [id number] Insulin Aspart (Insulin Aspart 100 Units/Ml 3 Ml Pen) 0 units SC ACHS GOSIA Stop: 06/07/20 20:59 Last Admin: 05/08/20 23:11 Dose: Not Given Documented by: [id number] Cosigned by: [id number] Insulin Glargine (Insulin Glargine Solostar 100 Units/Ml 3 Ml Pen) 0 - 30 units SC BID GOSIA Stop: 06/07/20 20:59 Last Admin: 05/08/20 22:14 Dose: 25 units Documented by: [id number] Cosigned by: [id number] Lactulose (Lactulose Syrup 20 Gm/30 Ml Udc) 40 gm PO BID GOSIA Stop: 06/07/20 20:59 Last Admin: 05/08/20 21:56 Dose: 40 gm Documented by: [id number] Magnesium Oxide (Magnesium Oxide 400 Mg Tab) 400 mg PO BID GOSIA Stop: 06/07/20 20:59 Last Admin: 05/08/20 21:57 Dose: 400 mg Documented by: [id number] Metoprolol Tartrate (Metoprolol Tartrate 25 Mg Tab) 25 mg PO BID GOSIA Stop: 06/07/20 20:59 Last Admin: 05/08/20 22:05 Dose: 25 mg Documented by: [id number] Miscellaneous (Empagliflozin 25 Mg: Order Awaiting Action) 1 ea N/A QS GOSIA Stop: 06/08/20 00:00 Last Admin: 05/08/20 23:11 Dose: Not Given Documented by: [id number] Pantoprazole Sodium (Pantoprazole 40 Mg Tab) 40 mg PO BID GOSIA Stop: 06/07/20 20:59 Last Admin: 05/08/20 21:58 Dose: 40 mg Documented by: [id number] Rifaximin (Rifaximin 550 Mg Tablet) 550 mg PO BID GOSIA Stop: 06/07/20 20:59 Last Admin: 05/08/20 21:57 Dose: 550 mg Documented by: [id number] Discontinued Medications Sodium Chloride (Nss) 500 mls @ 999 mls/hr IV .Q31M ONE Stop: 05/08/20 15:10 Last Infusion: 05/08/20 15:37 Dose: 0 mls/hr Documented by: [id number] Admin: 05/08/20 15:00 Dose: 999 mls/hr Documented by: [id number] Lactulose (Lactulose Syrup 30 Gm/45 Ml Udp) 30 gm PO NOW STA Stop: 05/08/20 16:01 Last Admin: 05/08/20 16:57 Dose: 30 gm Documented by: [id number] Blood Pressure Blood Pressure Findings: Elevated blood pressure Blood Pressure Disposition: further management by hospitalist Discharge Plan Visit Data Chief Complaint: Confusion Stated Complaint: ELEVATED PNEUMNOIA LEVEL/CONFUSION ED Provider: Perfecto Quinteros Discharge Problem: Hepatic encephalopathy, Cirrhosis of liver not due to alcohol, Insulin dependent diabetes mellitus, Recurrent falls, Generalized weakness Patient Disposition: Admitted As Inpatient Discharge Instructions Interventions: ED Discharge Assessment Last Done: 05/08/20 19:47
--- NOTE | 2020-05-09 05:56 | Electrocardiogram Report ---
Test Reason : Blood Pressure : / mmHG Vent. Rate : 060 BPM Atrial Rate : 060 BPM P-R Int : 156 ms QRS Dur : 082 ms QT Int : 446 ms P-R-T Axes : 025 -12 017 degrees QTc Int : 446 ms Normal sinus rhythm Septal infarct (cited on or before 14-JAN-2019) Abnormal ECG When compared with ECG of 16-MAR-2020 19:30, No significant change was found Confirmed by Luis Anthony ([id number]) on 05/09/2020 5:55:44 AM Referred By: REFERRED SELF Confirmed By:Luis Anthony
[2020-05-09] MEDS: ALBUT/IPRATROP 3MG/0.5MG NEB 3 ML VIAL INH SCH ×4 (07:09→19:35)
[2020-05-09] MEDS: RIFAXIMIN 550 MG TABLET PO SCH ×2 (08:00→21:33)
[2020-05-09] MEDS: MAGNESIUM OXIDE 400 MG TAB PO SCH ×2 (08:00→21:34)
[2020-05-09] MEDS: ESCITALOPRAM OXALATE 10 MG TAB PO SCH (08:00)
[2020-05-09] MEDS: PANTOprazole 40 MG TAB PO SCH ×2 (08:01→21:33)
[2020-05-09] MEDS: FUROSEMIDE 20 MG TAB PO SCH (08:01)
[2020-05-09] MEDS: TAMSULOSIN HCL 0.4 MG CAP PO SCH (08:01)
[2020-05-09] MEDS: METOPROLOL TARTRATE 25 MG TAB PO SCH ×2 (08:01→21:32)
[2020-05-09] MEDS: POTASSIUM CHLORIDE 20 MEQ TABCR PO SCH (08:02)
[2020-05-09] MEDS: FERROUS GLUCONATE 324 MG TAB PO SCH ×2 (08:04→21:35)
[2020-05-09] MEDS: FOLIC ACID 1 MG TAB PO SCH (08:04)
[2020-05-09] MEDS: LACTULOSE SYRUP 20 GM/30 ML UDC PO SCH (08:04)
[2020-05-09] MEDS: INSULIN GLARGINE SOLOSTAR 100 UNITS/ML 3 ML PEN SC SCH ×2 (08:05→21:31)
[2020-05-09] MEDS: FLUTICASONE PROPIONATE NA SPR 16 GM BTL NAE SCH (08:05)
[2020-05-09] MEDS: INSULIN ASPART 100 UNITS/ML 3 ML PEN SC SCH ×4 (08:07→21:34)
--- NOTE | 2020-05-09 08:32 | Gastrointestinal Consultation ---
Date of Consultation May 09, 2020 Assessment & Plan (1) Recurrent falls: 79 year old male w/ CAD, DM 2, aortic stenosis, CKD 3, and KLEIN cirrhosis with ascites admitted w/ question of HE, falls at home, concern for safety at home. Recommend case management evaluation Consider rehabilitation at time of discharge Xifaxan 550 BID Lactulose QID titrate to BMs, 2-3 times daily No other change in outpatient GI medications Low NA diet Less than 2G tylenol if using No ETOH Will sign off. Thank you for allowing us to participate in the care of this patient. Please call with any acute changes, questions or concerns. Please see addendum below with additional recommendation from my supervising physician. Supervising Physician Co-Signing Physician Notes I performed a history and physical examination of the patient today, including specifically on physical exam - soft abdomen. I have discussed the patient's management with the advanced practitioner. Please refer to the nurse practitioner's note for the documented findings and plan of care. Continue Lactulose and Xifaxan Follow up as OP in GI clinic. Recall GI if needed. History of Present Illness Reason for Consultation: HE Requesting Physician: Ankit Attending Physician: Nida Pham MD History of Present Illness 79-year-old male patient of Dr. Evans with a history of CAD, DM 2, aortic stenosis, CKD 3, and KLEIN cirrhosis with ascites and prior hepatic encephalopathy (followed by Sapna Godinez NP and maintained furosemide 20 mg daily, lactulose QID, and rifaximin) admitted through the ED for evaluation of increasing confusion, falls at home and concern for safety at home - GI asked to evaluate. Clinically feeling well. No abd pain. Tolerating PO. No nausea/vomiting. No diarrhea/constipation. No black or bloody stools. He notes to me compliance of lactulose, only moves bowels once daily. Chest XR negative Head CT negative Infectious work up pending Ammonia > 70 Most recent EGD 03/03/19, Dr. Garcia, screening/cirrhosis: - The esophagus was normal. - Portal hypertensive gastropathy was found in the entire examined stomach. - The examined duodenum was normal. Most recent Colonoscopy 03/03/19 Dr. Garcia (screening): - 5mm transverse colon polyp - diverticula - internal hemorrhoids. Allergies Allergy/AdvReac Type Severity Reaction Status Date / Time PRASHANT Inhibitors Allergy Severe ANGIOEDEMA Verified 05/08/20 15:28 from 10/10/11 ED adm lisinopril Allergy Severe Edema - Verified 05/08/20 15:28 face, lips and tongue simvastatin Allergy Unknown RASH, SORE Verified 05/08/20 15:28 ALL OVER. 2013: Uses Crestor Home Medications Home Medications Medication Instructions Recorded Confirmed Type empagliflozin 25 mg PO DAILY 01/14/19 05/08/20 History ferrous gluconate 324 mg PO BID 01/14/19 05/08/20 History folic acid 1 mg PO DAILY 01/14/19 05/08/20 History metoprolol tartrate 25 mg PO BID 01/14/19 05/08/20 History potassium chloride 20 meq PO DAILY 01/14/19 05/08/20 History rifaximin 550 mg PO BID 01/14/19 05/08/20 History tamsulosin 0.4 mg PO DAILY 01/14/19 05/08/20 History albuterol sulfate [Ventolin HFA] 2 puff INHALATION Q4H PRN 02/20/19 05/08/20 History fluticasone propionate [Flonase 1 spray INTRANASAL DAILY 02/20/19 05/08/20 History Allergy Relief] furosemide [Lasix] 20 mg PO DAILY 02/20/19 05/08/20 History lactulose 40 g PO BID 02/20/19 05/08/20 History magnesium oxide 400 mg PO BID 02/20/19 05/08/20 History nitroglycerin 0.4 mg SUBLINGUAL UD PRN 02/20/19 05/08/20 History ipratropium-albuterol 3 ml INHALATION QID 01/13/20 05/08/20 History Lantus Solostar U-100 Insulin 60 unit SUBCUT DAILY 03/16/20 05/08/20 History escitalopram oxalate 5 mg PO DAILY 05/08/20 05/08/20 History pantoprazole 40 mg PO BID 05/08/20 05/08/20 History Patient History Medical History Anemia Anxiety Aortic stenosis "severe on echo 04/2017" On 07/03/16 17:13 Cande Poon wrote "severe on echo 04/2016" CAD (coronary artery disease) "2009 - RCA stent 2013 - RCA stent restenosis, s/p AMOS to RCA" Cirrhosis of liver not due to alcohol CKD (chronic kidney disease), stage III Diverticulosis Dyslipidemia GERD (gastroesophageal reflux disease) Hepatic encephalopathy Hiatal hernia HTN (hypertension) Insulin dependent diabetes mellitus Osteoarthritis Portal hypertensive gastropathy Transaminitis Surgical History H/O hemorrhoidectomy History of cardiac catheterization NO STENTS History of colonoscopy History of lumbar laminectomy History of tooth extraction Family History Son Family history of diabetes mellitus Family/Other Family hx of colon cancer Social History Smoking Status: Former smoker Second Hand Exposure: Yes; Do You Dip or Chew Tobacco: No; Hx Alcohol Use: No (former) Hx Substance Use: No Preferred Language: Belarusian Communication Ability: Effective Corporate Accountant Required: No Beliefs That Will Affect Care: None marital status: / Current Living Situation: Alone How many Children do You have: 3 Feels Safe at Home: Yes Review of Systems Constitutional: no fever, no chills and no fatigue Respiratory: no cough and no dyspnea Cardiovascular: no chest pain and no dyspnea Gastrointestinal: no abdominal pain, no nausea, no coffee ground emesis, no hematemesis, no blood in stools and no melena Physical Exam Constitutional: well developed and well nourished; no acute distress Respiratory: normal respiratory effort, lungs clear to auscultation Cardiovascular: RRR, no murmur, no edema Gastrointestinal (Abdomen): normal bowel sounds, soft, nontender, no hepatosplenomegaly Results & Data ([facility]) Vital Signs (Past 12 Hours) Vital Signs Temp Pulse Pulse Resp BP Pulse Ox Pulse Ox 05/09/20 08:09 36.4 C L 53 L 17 121/77 93 05/09/20 07:09 60 16 96 05/09/20 03:35 36.8 C 58 L 19 138/76 94 05/08/20 23:12 36.5 C 62 18 166/81 H 97 05/08/20 22:20 66 05/08/20 22:04 60 145/76 H 05/08/20 21:38 61 18 97 05/08/20 20:31 63 05/08/20 20:29 36.8 C 64 133/71 94 94 Laboratory Results 05/09/20 05/08/20 05/08/20 Range/Units 07:52 Unknown 22:14 WBC (4.8-10.8) K/uL RBC (4.7-6.1) M/uL Hgb (14.0-18.0) g/dL Hct (42-52) % MCV (80-100) fL MCH (25-34) pg MCHC (32-36) g/dL RDW Std Deviation (36.4-46.3) fL RDW Coeff of Adrian (11.5-14.5) % Plt Count (130-400) K/uL MPV (7.4-10.4) fL Immature Gran % (Auto) % Neut % (Auto) % Lymph % (Auto) % [place] % (Auto) % Eos % (Auto) % Baso % (Auto) % Neut # (Auto) (1.4-6.5) K/uL Lymph # (Auto) (1.2-3.4) K/uL [place] # (Auto) (0.11-0.59) K/uL Eos # (Auto) (0-0.5) K/uL Baso # (Auto) (0-0.2) K/uL Immature Gran # (Auto) (0.00-0.02) K/uL PT (9.0-12.0) Seconds INR (0.9-1.1) APTT (21.0-31.0) Seconds PTT Ratio Sodium (136-145) mmol/L Potassium (3.5-5.1) mmol/L Chloride (98-107) mmol/L Carbon Dioxide (21-32) mmol/L Anion Gap (3-11) BUN (7-18) mg/dl Creatinine (0.6-1.4) mg/dl Est Cr Clr Drug Dosing Est GFR ( Amer) Est GFR (Non-Af Amer) BUN/Creatinine Ratio (10-20) Glucose (70-99) mg/dl POC Glucose 105 H 142 H (70-99) mg/dl Lactate (0.4-2.0) mmol/L Calcium (8.5-10.1) mg/dl Phosphorus (2.5-4.9) mg/dl Magnesium (1.8-2.4) mg/dl Total Bilirubin (0.2-1) mg/dl Direct Bilirubin (0-0.2) mg/dl AST (15-37) U/L ALT (12-78) U/L Alkaline Phosphatase (45-117) U/L Ammonia (11-32) umol/L Troponin I (0-0.045) ng/ml Total Protein (6.4-8.2) gm/dl Albumin (3.4-5.0) gm/dl Globulin (2.5-4.0) gm/dl Albumin/Globulin Ratio (0.9-2) Lipase (73-393) U/L Beta-Hydroxybutyric Acd (0.2-2.81) mg/dl TSH (0.300-4.500) uIu/ml Urine Color Yellow Urine Appearance Clear (Clear) Urine pH 6.0 (4.5-7.5) Ur Specific [place] 1.036 H (1.000-1.030) Urine Protein Negative (Negative) Urine Glucose (UA) 3+ H (Negative) Urine Ketones Negative (Negative) Urine Blood Negative (Negative) Urine Nitrite Negative (Negative) Urine Bilirubin Negative (Negative) Urine Urobilinogen Negative (Negative) Ur Leukocyte Esterase Negative (Negative) 05/08/20 05/08/20 05/08/20 Range/Units 20:29 15:02 14:47 WBC (4.8-10.8) K/uL RBC (4.7-6.1) M/uL Hgb (14.0-18.0) g/dL Hct (42-52) % MCV (80-100) fL MCH (25-34) pg MCHC (32-36) g/dL RDW Std Deviation (36.4-46.3) fL RDW Coeff of Adrian (11.5-14.5) % Plt Count (130-400) K/uL MPV (7.4-10.4) fL Immature Gran % (Auto) % Neut % (Auto) % Lymph % (Auto) % [place] % (Auto) % Eos % (Auto) % Baso % (Auto) % Neut # (Auto) (1.4-6.5) K/uL Lymph # (Auto) (1.2-3.4) K/uL [place] # (Auto) (0.11-0.59) K/uL Eos # (Auto) (0-0.5) K/uL Baso # (Auto) (0-0.2) K/uL Immature Gran # (Auto) (0.00-0.02) K/uL PT (9.0-12.0) Seconds INR (0.9-1.1) APTT (21.0-31.0) Seconds PTT Ratio Sodium (136-145) mmol/L Potassium (3.5-5.1) mmol/L Chloride (98-107) mmol/L Carbon Dioxide (21-32) mmol/L Anion Gap (3-11) BUN (7-18) mg/dl Creatinine (0.6-1.4) mg/dl Est Cr Clr Drug Dosing Est GFR ( Amer) Est GFR (Non-Af Amer) BUN/Creatinine Ratio (10-20) Glucose (70-99) mg/dl POC Glucose 164 H (70-99) mg/dl Lactate 1.5 (0.4-2.0) mmol/L Calcium (8.5-10.1) mg/dl Phosphorus (2.5-4.9) mg/dl Magnesium (1.8-2.4) mg/dl Total Bilirubin (0.2-1) mg/dl Direct Bilirubin (0-0.2) mg/dl AST (15-37) U/L ALT (12-78) U/L Alkaline Phosphatase (45-117) U/L Ammonia 77.6 H (11-32) umol/L Troponin I (0-0.045) ng/ml Total Protein (6.4-8.2) gm/dl Albumin (3.4-5.0) gm/dl Globulin (2.5-4.0) gm/dl Albumin/Globulin Ratio (0.9-2) Lipase (73-393) U/L Beta-Hydroxybutyric Acd (0.2-2.81) mg/dl TSH (0.300-4.500) uIu/ml Urine Color Urine Appearance (Clear) Urine pH (4.5-7.5) Ur Specific [place] (1.000-1.030) Urine Protein (Negative) Urine Glucose (UA) (Negative) Urine Ketones (Negative) Urine Blood (Negative) Urine Nitrite (Negative) Urine Bilirubin (Negative) Urine Urobilinogen (Negative) Ur Leukocyte Esterase (Negative) 05/08/20 05/08/20 05/08/20 Range/Units 14:47 14:47 14:47 WBC 5.74 (4.8-10.8) K/uL RBC 4.84 (4.7-6.1) M/uL Hgb 15.2 (14.0-18.0) g/dL Hct 45.0 (42-52) % MCV 93.0 (80-100) fL MCH 31.4 (25-34) pg MCHC 33.8 (32-36) g/dL RDW Std Deviation 50.0 H (36.4-46.3) fL RDW Coeff of Adrian 14.7 H (11.5-14.5) % Plt Count 73 L (130-400) K/uL MPV 10.7 H (7.4-10.4) fL Immature Gran % (Auto) 0.2 % Neut % (Auto) 69.5 % Lymph % (Auto) 14.6 % [place] % (Auto) 10.8 % Eos % (Auto) 4.2 % Baso % (Auto) 0.7 % Neut # (Auto) 3.99 (1.4-6.5) K/uL Lymph # (Auto) 0.84 L (1.2-3.4) K/uL [place] # (Auto) 0.62 H (0.11-0.59) K/uL Eos # (Auto) 0.24 (0-0.5) K/uL Baso # (Auto) 0.04 (0-0.2) K/uL Immature Gran # (Auto) 0.01 (0.00-0.02) K/uL PT 11.4 (9.0-12.0) Seconds INR 1.1 (0.9-1.1) APTT 29.6 (21.0-31.0) Seconds PTT Ratio 1.1 Sodium 135 L (136-145) mmol/L Potassium 4.5 (3.5-5.1) mmol/L Chloride 104 (98-107) mmol/L Carbon Dioxide 27 (21-32) mmol/L Anion Gap 5.0 (3-11) BUN 19 H (7-18) mg/dl Creatinine 1.21 (0.6-1.4) mg/dl Est Cr Clr Drug Dosing Not Reportable Est GFR ( Amer) 64.7 Est GFR (Non-Af Amer) 55.8 BUN/Creatinine Ratio 15.3 (10-20) Glucose 305 H* (70-99) mg/dl POC Glucose (70-99) mg/dl Lactate (0.4-2.0) mmol/L Calcium 9.2 (8.5-10.1) mg/dl Phosphorus 2.5 (2.5-4.9) mg/dl Magnesium 2.5 H (1.8-2.4) mg/dl Total Bilirubin 1.4 H (0.2-1) mg/dl Direct Bilirubin 0.3 H (0-0.2) mg/dl AST 71 H (15-37) U/L ALT 49 (12-78) U/L Alkaline Phosphatase 325 H (45-117) U/L Ammonia (11-32) umol/L Troponin I < 0.015 (0-0.045) ng/ml Total Protein 6.4 (6.4-8.2) gm/dl Albumin 2.9 L (3.4-5.0) gm/dl Globulin 3.5 (2.5-4.0) gm/dl Albumin/Globulin Ratio 0.8 L (0.9-2) Lipase 284 (73-393) U/L Beta-Hydroxybutyric Acd 0.84 (0.2-2.81) mg/dl TSH 3.130 (0.300-4.500) uIu/ml Urine Color Urine Appearance (Clear) Urine pH (4.5-7.5) Ur Specific [place] (1.000-1.030) Urine Protein (Negative) Urine Glucose (UA) (Negative) Urine Ketones (Negative) Urine Blood (Negative) Urine Nitrite (Negative) Urine Bilirubin (Negative) Urine Urobilinogen (Negative) Ur Leukocyte Esterase (Negative)
[2020-05-09] MEDS ORDERED: NON-FORMULARY MEDICATION (Empagliflozin 25 MG) PO SCH (09:00)
[2020-05-09 09:16] LABS: Hematocrit (blood only) 46.2 % (42-52); Mean Corpuscular Hemoglobin 31.6 pg (25-34); Mean Corpuscular Hgb Conc 34.6 g/dL (32-36); Mean Corpuscular Volume 91.3 fL (80-100); RDW Coefficient of Variation 14.8 % (11.5-14.5); RDW Standard Deviation 49.9 fL (36.4-46.3); Red Blood Count 5.06 M/uL (4.7-6.1); White Blood Count 6.11 K/uL (4.8-10.8)
[2020-05-09 09:48] LABS: Albumin Level 3.1 gm/dl (3.4-5.0); BUN Creatinine Ratio 14.2 (10-20); Calcium 9.4 mg/dl (8.5-10.1); Creatinine Clr Calc Pharmacy 47.7 ml/min; Est GFR (African American) 74.2; Mean Platelet Volume 10.7 fL (7.4-10.4); Platelet Count 71 K/uL (130-400)
[2020-05-09 09:51] LABS: Albumin Globulin Ratio 0.8 (0.9-2); Bilirubin,Total 1.5 mg/dl (0.2-1); Globulin 3.7 gm/dl (2.5-4.0); Total Protein 6.8 gm/dl (6.4-8.2)
--- NOTE | 2020-05-09 17:53 | Hospitalist Progress Note ---
Date of Service May 09, 2020 Assessment & Plan (1) Hepatic encephalopathy: This is an 79yo M with a PMH of KELIN cirrhosis, insulin-dependent type II diabetes, hypertension, h/o TAVR, chronic ischemic heart disease, CKD III and other medical problems listed below who was directed to ED per GI for evaluation of hepatic encephalopathy and frequent falls. -Likely noncompliance with lactulose dose, -lactulose dose increased to Lactulose 40g TID, titrate for goal BM 3-5x a day, continue Xifaxan 550mg BID, ;low sodium diet -CT head without acute abnormality, no evidence of infection in urine or chest x-ray. -Gi consult appreciated -mental status gradually improving (2) Frequent falls: due to above PT/OT evaluation. Case management consulted for possible SNF placement (3) Insulin dependent diabetes mellitus: -Basal/bolus insulin per protocol, -BSG AC HS (4) CAD (coronary artery disease): No chest pain or EKG changes. Continue beta wesly (5) CKD (chronic kidney disease), stage III: Kidney function at baseline. DVT Ppx: SCDs in setting of thrombocytopenia Code status: DNR per discussion with patient, advanced directives PCP: [place] Dispo: PT/OT evaluation. Case management consulted for possible SNF placement Admission and Anticipated Discharge Date Admission Date: May 08, 2020 Subjective more awake and alert today denies of any abdominal pain no nausea no fever or chills Physical Exam Constitutional: + ill appearing; no acute distress Eyes: + anicteric sclerae Neck: trachea midline, no thyromegaly Cardiovascular: Rate/Rhythm: regular rate and regular rhythm Extremities: + pedal edema Gastrointestinal (Abdomen): Inspection/Auscultation: + abdomen distended Percussion/Palpation: + ascites Neurologic: PERRL, EOMI, accommodation nl, no face palsy, no dysarthria Psychiatric: Orientation: alert oriented to place and person Results & Data Results & Data ([facility]) Vital Signs (Past 12 Hours) Vital Signs Temp Pulse Pulse Resp BP Pulse Ox 05/09/20 16:09 36.7 C 71 17 136/51 L 94 05/09/20 16:00 67 05/09/20 15:23 67 18 92 05/09/20 12:21 37.1 C 64 17 124/69 93 05/09/20 10:55 60 18 95 05/09/20 08:09 36.4 C L 53 L 17 121/77 93 05/09/20 08:00 56 L 05/09/20 07:09 60 16 96
[2020-05-09] MEDS ORDERED: LACTULOSE SYRUP 20 GM/30 ML UDC PO SCH (21:00)
[2020-05-10] MEDS: ALBUT/IPRATROP 3MG/0.5MG NEB 3 ML VIAL INH SCH ×4 (07:12→19:13)
[2020-05-10 08:26] LABS: Albumin Level 2.7 gm/dl (3.4-5.0); BUN Creatinine Ratio 13.8 (10-20); Creatinine Clr Calc Pharmacy 49.1 ml/min; Est GFR (African American) 76.8; Est GFR (Non-African American) 66.3
[2020-05-10 08:29] LABS: Albumin Globulin Ratio 0.9 (0.9-2); Bilirubin,Total 1.3 mg/dl (0.2-1); Globulin 3.2 gm/dl (2.5-4.0); Total Protein 5.9 gm/dl (6.4-8.2)
[2020-05-10] MEDS: PANTOprazole 40 MG TAB PO SCH ×2 (08:46→20:48)
[2020-05-10] MEDS: FERROUS GLUCONATE 324 MG TAB PO SCH ×2 (08:46→20:47)
[2020-05-10] MEDS: TAMSULOSIN HCL 0.4 MG CAP PO SCH (08:47)
[2020-05-10] MEDS: ESCITALOPRAM OXALATE 10 MG TAB PO SCH (08:47)
[2020-05-10] MEDS: METOPROLOL TARTRATE 25 MG TAB PO SCH ×2 (08:47→20:47)
[2020-05-10] MEDS: RIFAXIMIN 550 MG TABLET PO SCH ×2 (08:47→20:48)
[2020-05-10] MEDS: FOLIC ACID 1 MG TAB PO SCH (08:48)
[2020-05-10] MEDS: FLUTICASONE PROPIONATE NA SPR 16 GM BTL NAE SCH (08:49)
[2020-05-10] MEDS: POTASSIUM CHLORIDE 20 MEQ TABCR PO SCH (08:49)
[2020-05-10] MEDS: LACTULOSE SYRUP 20 GM/30 ML UDC PO SCH ×4 (08:49→20:46)
[2020-05-10] MEDS: MAGNESIUM OXIDE 400 MG TAB PO SCH ×2 (08:50→20:47)
[2020-05-10] MEDS: INSULIN GLARGINE SOLOSTAR 100 UNITS/ML 3 ML PEN SC SCH ×2 (08:50→20:48)
[2020-05-10] MEDS: FUROSEMIDE 20 MG TAB PO SCH (08:51)
[2020-05-10] MEDS: INSULIN ASPART 100 UNITS/ML 3 ML PEN SC SCH ×4 (08:52→20:49)
--- NOTE | 2020-05-10 16:39 | Hospitalist Progress Note ---
Date of Service May 10, 2020 Assessment & Plan (1) Hepatic encephalopathy: This is an 79yo M with a PMH of KLEIN cirrhosis, insulin-dependent type II diabetes, hypertension, h/o TAVR, chronic ischemic heart disease, CKD III and other medical problems listed below who was directed to ED per GI for evaluation of hepatic encephalopathy and frequent falls. -Likely noncompliance with lactulose dose, -lactulose dose increased to Lactulose 40g TID, titrate for goal BM 3-5x a day, continue Xifaxan 550mg BID, ;low sodium diet .Status gradually improved to baseline -CT head without acute abnormality, no evidence of infection in urine or chest x-ray. -Gi consult appreciated -Recommends to continue lactulose, Xifaxan, low-salt diet PT OT evaluation She may need skilled rehab for frequent fall ambulatory dysfunction (2) Frequent falls: due to above PT/OT evaluation. Case management consulted for possible SNF placement (3) Insulin dependent diabetes mellitus: -Basal/bolus insulin per protocol, -BSG AC HS (4) CAD (coronary artery disease): No chest pain or EKG changes. Continue beta wesly (5) CKD (chronic kidney disease), stage III: Kidney function at baseline. DVT Ppx: SCDs in setting of thrombocytopenia Code status: DNR per discussion with patient, advanced directives PCP: Cristina Dispo: PT/OT evaluation. Case management consulted for possible SNF placement Admission and Anticipated Discharge Date Admission Date: May 08, 2020 Subjective Offers no new complain, Able to answer questions appropriately, Knows that he is in the hospital [facility] does not recall the events pt did not realize he was taking lactulose less then better prescribed dose Fever or chills, no diarrhea or loose stool, no abdominal pain Review of Systems Review of Systems: All systems reviewed & are unremarkable except as noted in HPI & below Physical Exam Constitutional: + ill appearing; no acute distress Eyes: + anicteric sclerae Neck: trachea midline, no thyromegaly Cardiovascular: Rate/Rhythm: regular rate and regular rhythm Extremities: + pedal edema Gastrointestinal (Abdomen): Inspection/Auscultation: + abdomen distended Percussion/Palpation: + ascites Neurologic: PERRL, EOMI, accommodation nl, no face palsy, no dysarthria Psychiatric: Orientation: alert Results & Data Results & Data ([facility]) Vital Signs (Past 12 Hours) Vital Signs Temp Pulse Resp BP Pulse Ox 05/10/20 15:14 66 18 95 05/10/20 11:23 83 18 95 05/10/20 07:30 36.5 C 59 L 17 148/77 H 94 05/10/20 07:20 97 H 18 94
--- NOTE | 2020-05-10 18:13 | Communication Note ---
Date of Service: May 10, 2020 Update given to patient's [id number] over phone, family is willing for patient to go to short-term rehab will update case management in a.m. Nida Pham MD
[2020-05-11] MEDS: ALBUT/IPRATROP 3MG/0.5MG NEB 3 ML VIAL INH SCH ×4 (07:06→19:10)
--- NOTE | 2020-05-11 08:26 | Hospitalist Progress Note ---
Date of Service May 11, 2020 Assessment & Plan (1) Hepatic encephalopathy: This is an 79yo M with a PMH of KLEIN cirrhosis, insulin-dependent type II diabetes, hypertension, h/o TAVR, chronic ischemic heart disease, CKD III and other medical problems listed below who was directed to ED per GI for evaluation of hepatic encephalopathy and frequent falls. -CT head without acute abnormality, no evidence of infection in urine or chest x-ray. -Hepatic encephalopathy: Likely noncompliance with lactulose dose, -lactulose dose increased to Lactulose 40g TID, titrate for goal BM 3-5x a day, continue Xifaxan 550mg BID, ;low sodium diet Symptom resolved, patient's alert awake oriented x3 Mental status improved to baseline We will reduce lactulose dose to twice daily with a titrate to goal BM 35 times a day -Gi consult appreciated -Recommends to continue lactulose, Xifaxan, low-salt diet PT OT evaluation appreciated recommends inpatient rehab Will benefit skilled rehab for frequent fall ambulatory dysfunction (2) Frequent falls: due to above Will need inpatient rehab as per PT OT evaluation Case management consulted for discharge planning issue Patient is agreeable for short-term inpatient rehab Spoke with patient's/[id number] Irena, in agreement with skilled rehab placement (3) Insulin dependent diabetes mellitus: -Basal/bolus insulin per protocol, -BSG AC HS (4) CAD (coronary artery disease): No chest pain or EKG changes. Continue beta wesly (5) CKD (chronic kidney disease), stage III: Kidney function at baseline. DVT Ppx: SCDs in setting of thrombocytopenia Code status: DNR per discussion with patient, advanced directives PCP: Cristina Dispo: Will benefit with inpatient short-term rehab, Not safe to return home secondary to high fall risk, deconditioning Social service consulted to address discharge planning issues Admission and Anticipated Discharge Date Admission Date: May 08, 2020 Subjective Patient sitting up on chair, comfortable, awake alert oriented x3 Mental status improved to baseline No confusion, no delirium noted Per nursing patient was able to be out of bed walk to the bathroom with 1 person assist with help of rolling walker No fever or chills, denies of any headache, no abdominal pain, no nausea vomiting Stable vitals Review of Systems Review of Systems: All systems reviewed & are unremarkable except as noted in HPI & below Physical Exam Constitutional: + ill appearing; no acute distress Eyes: + anicteric sclerae ENMT: external ear and nose normal, oropharynx normal Neck: trachea midline, no thyromegaly Respiratory: normal respiratory effort, lungs clear to auscultation Cardiovascular: Rate/Rhythm: regular rate and regular rhythm Extremities: + pedal edema Gastrointestinal (Abdomen): Inspection/Auscultation: + abdomen distended Percussion/Palpation: + ascites Musculoskeletal: no cyanosis or clubbing, extremities motor strength 5/5 Neurologic: PERRL, EOMI, accommodation nl, no face palsy, no dysarthria Psychiatric: A+Ox3, euthymic affect Results & Data Results & Data ([facility]) Vital Signs (Past 12 Hours) Vital Signs Temp Pulse Resp BP Pulse Ox 05/11/20 07:35 36.7 C 60 17 127/63 94 05/11/20 07:06 63 18 97 05/10/20 22:26 36.7 C 71 18 111/61 95
[2020-05-11] MEDS: LACTULOSE SYRUP 20 GM/30 ML UDC PO SCH ×2 (09:35→20:38)
[2020-05-11] MEDS: FUROSEMIDE 20 MG TAB PO SCH (09:36)
[2020-05-11] MEDS: FOLIC ACID 1 MG TAB PO SCH (09:36)
[2020-05-11] MEDS: TAMSULOSIN HCL 0.4 MG CAP PO SCH (09:36)
[2020-05-11] MEDS: POTASSIUM CHLORIDE 20 MEQ TABCR PO SCH (09:36)
[2020-05-11] MEDS: ESCITALOPRAM OXALATE 10 MG TAB PO SCH (09:36)
[2020-05-11] MEDS: PANTOprazole 40 MG TAB PO SCH ×2 (09:37→20:39)
[2020-05-11] MEDS: RIFAXIMIN 550 MG TABLET PO SCH ×2 (09:37→20:39)
[2020-05-11] MEDS: FERROUS GLUCONATE 324 MG TAB PO SCH ×2 (09:37→20:39)
[2020-05-11] MEDS: METOPROLOL TARTRATE 25 MG TAB PO SCH ×2 (09:37→20:39)
[2020-05-11] MEDS: MAGNESIUM OXIDE 400 MG TAB PO SCH ×2 (09:37→20:39)
[2020-05-11] MEDS: INSULIN GLARGINE SOLOSTAR 100 UNITS/ML 3 ML PEN SC SCH ×2 (09:38→20:40)
[2020-05-11] MEDS: FLUTICASONE PROPIONATE NA SPR 16 GM BTL NAE SCH (09:38)
[2020-05-11] MEDS: INSULIN ASPART 100 UNITS/ML 3 ML PEN SC SCH ×4 (09:39→20:40)
[2020-05-12] MEDS: ALBUT/IPRATROP 3MG/0.5MG NEB 3 ML VIAL INH SCH ×3 (07:20→14:32)
[2020-05-12] MEDS: INSULIN ASPART 100 UNITS/ML 3 ML PEN SC SCH ×4 (08:59→20:50)
[2020-05-12] MEDS: INSULIN GLARGINE SOLOSTAR 100 UNITS/ML 3 ML PEN SC SCH ×2 (09:00→20:49)
[2020-05-12] MEDS: LACTULOSE SYRUP 20 GM/30 ML UDC PO SCH ×2 (09:01→20:47)
[2020-05-12] MEDS: POTASSIUM CHLORIDE 20 MEQ TABCR PO SCH (09:02)
[2020-05-12] MEDS: FOLIC ACID 1 MG TAB PO SCH (09:02)
[2020-05-12] MEDS: FERROUS GLUCONATE 324 MG TAB PO SCH ×2 (09:02→20:50)
[2020-05-12] MEDS: RIFAXIMIN 550 MG TABLET PO SCH ×2 (09:02→20:49)
[2020-05-12] MEDS: ESCITALOPRAM OXALATE 10 MG TAB PO SCH (09:02)
[2020-05-12] MEDS: PANTOprazole 40 MG TAB PO SCH ×2 (09:02→20:49)
[2020-05-12] MEDS: METOPROLOL TARTRATE 25 MG TAB PO SCH ×2 (09:03→20:49)
[2020-05-12] MEDS: MAGNESIUM OXIDE 400 MG TAB PO SCH ×2 (09:03→20:50)
[2020-05-12] MEDS: FUROSEMIDE 20 MG TAB PO SCH (09:03)
[2020-05-12] MEDS: FLUTICASONE PROPIONATE NA SPR 16 GM BTL NAE SCH (09:03)
[2020-05-12] MEDS: TAMSULOSIN HCL 0.4 MG CAP PO SCH (09:03)
--- NOTE | 2020-05-12 18:13 | Hospitalist Progress Note ---
Date of Service May 12, 2020 Assessment & Plan (1) Hepatic encephalopathy: This is an 79yo M with a PMH of KLEIN cirrhosis, insulin-dependent type II diabetes, hypertension, h/o TAVR, chronic ischemic heart disease, CKD III and other medical problems listed below who was directed to ED per GI for evaluation of hepatic encephalopathy and frequent falls. Due to his completely resolved -CT head without acute abnormality, no evidence of infection in urine or chest x-ray. -Hepatic encephalopathy: Likely noncompliance with lactulose dose, -lactulose dose reduced to prior dose to Lactulose 40g BID, titrate for goal BM 3-5x a day, continue Xifaxan 550mg BID, ;low sodium diet Symptom resolved, patient's alert awake oriented x3 Mental status improved to baseline -Gi consult appreciated -Recommends to continue lactulose, Xifaxan, low-salt diet PT OT evaluation appreciated recommends inpatient rehab Will benefit skilled rehab for frequent fall ambulatory dysfunction (2) Frequent falls: due to above Will need inpatient rehab as per PT OT evaluation Case management consulted for discharge planning issue Patient is agreeable for short-term inpatient rehab Spoke with patient's/[id number]-tc-[id number] Irena, in agreement with skilled rehab placement (3) Insulin dependent diabetes mellitus: -Basal/bolus insulin per protocol, -BSG AC HS (4) CAD (coronary artery disease): No chest pain or EKG changes. Continue beta wesly (5) CKD (chronic kidney disease), stage III: Kidney function at baseline. DVT Ppx: SCDs in setting of thrombocytopenia Code status: DNR per discussion with patient, advanced directives PCP: [facility] Dispo: Will benefit with inpatient short-term rehab, Social service consulted to address discharge planning issues Medically stable to be transferred to rehab when insurance authorization available Admission and Anticipated Discharge Date Admission Date: May 08, 2020 Subjective Doing well, no complaint of confusion no headache no chills or fever No complaint abdominal pain, No nausea vomiting, Waiting for rehab placement Physical Exam Constitutional: no acute distress Eyes: + anicteric sclerae ENMT: external ear and nose normal, oropharynx normal Neck: trachea midline, no thyromegaly Respiratory: normal respiratory effort, lungs clear to auscultation Cardiovascular: Rate/Rhythm: regular rate and regular rhythm Extremities: + pedal edema Gastrointestinal (Abdomen): Inspection/Auscultation: + abdomen distended Percussion/Palpation: + ascites Musculoskeletal: no cyanosis or clubbing, extremities motor strength 5/5 Neurologic: PERRL, EOMI, accommodation nl, no face palsy, no dysarthria Psychiatric: A+Ox3, euthymic affect Orientation: alert Results & Data Results & Data ([facility]) Vital Signs (Past 12 Hours) Vital Signs Temp Pulse Resp BP Pulse Ox 05/12/20 15:56 36.7 C 65 17 103/59 L 96 05/12/20 14:32 66 16 97 05/12/20 11:15 62 16 97 05/12/20 08:55 68 05/12/20 07:21 59 L 16 98 05/12/20 07:13 36.7 C 59 L 18 121/68 94
[2020-05-12] MEDS ORDERED: ALBUT/IPRATROP 3MG/0.5MG NEB 3 ML VIAL INH PRN (18:14)
[2020-05-13] MEDS: FERROUS GLUCONATE 324 MG TAB PO SCH (07:58)
[2020-05-13] MEDS: FOLIC ACID 1 MG TAB PO SCH (07:58)
[2020-05-13] MEDS: RIFAXIMIN 550 MG TABLET PO SCH (08:00)
[2020-05-13] MEDS: FUROSEMIDE 20 MG TAB PO SCH (08:00)
[2020-05-13] MEDS: FLUTICASONE PROPIONATE NA SPR 16 GM BTL NAE SCH (08:01)
[2020-05-13] MEDS: MAGNESIUM OXIDE 400 MG TAB PO SCH (08:01)
[2020-05-13] MEDS: POTASSIUM CHLORIDE 20 MEQ TABCR PO SCH (08:01)
[2020-05-13] MEDS: ESCITALOPRAM OXALATE 10 MG TAB PO SCH (08:01)
[2020-05-13] MEDS: TAMSULOSIN HCL 0.4 MG CAP PO SCH (08:01)
[2020-05-13] MEDS: PANTOprazole 40 MG TAB PO SCH (08:02)
[2020-05-13] MEDS: METOPROLOL TARTRATE 25 MG TAB PO SCH (08:02)
[2020-05-13] MEDS: LACTULOSE SYRUP 20 GM/30 ML UDC PO SCH (08:02)
[2020-05-13] MEDS: INSULIN GLARGINE SOLOSTAR 100 UNITS/ML 3 ML PEN SC SCH (08:03)
[2020-05-13] MEDS: INSULIN ASPART 100 UNITS/ML 3 ML PEN SC SCH ×2 (08:04→12:07)
--- NOTE | 2020-05-13 13:45 | Communication Note ---
Date of Service: May 13, 2020 Patient has insurance approval for rehab Repeat COVID-19 test ordered Patient is medically stable to be transferred to rehab today [id number] will provide transport Case management updated Nida Pham MD
--- NOTE | 2020-05-13 14:02 | Hospitalist Progress Note ---
Date of Service May 13, 2020 Assessment & Plan (1) Hepatic encephalopathy: Interim has completely resolved, and alert and awake oriented x3 This is an 79yo M with a PMH of KLEIN cirrhosis, insulin-dependent type II diabetes, hypertension, h/o TAVR, chronic ischemic heart disease, CKD III and other medical problems listed below who was directed to ED per GI for evaluation of hepatic encephalopathy and frequent falls. -CT head without acute abnormality, no evidence of infection in urine or chest x-ray. -Hepatic encephalopathy: Likely noncompliance with lactulose dose, -lactulose dose reduced to prior dose to Lactulose 40g BID, titrate for goal BM 3-5x a day, continue Xifaxan 550mg BID, ;low sodium diet Symptom resolved, patient's alert awake oriented x3 Mental status improved to baseline -Gi consult appreciated -Patient is continued with lactulose, Xifaxan, low-salt diet PT OT evaluation appreciated recommends inpatient rehab Accepted at [facility] rehab, medically stable to be transferred today COVID-19 test ordered. Transfer to skilled rehab (2) Frequent falls: due to above Will need inpatient rehab as per PT OT evaluation Case management consulted for discharge planning issue She is medically stable to be transferred to skilled rehab at [facility] today (3) Insulin dependent diabetes mellitus: -Basal/bolus insulin per protocol, -BSG AC HS (4) CAD (coronary artery disease): No chest pain or EKG changes. Continue beta wesly (5) CKD (chronic kidney disease), stage III: Kidney function at baseline. DVT Ppx: SCDs in setting of thrombocytopenia Code status: DNR per discussion with patient, advanced directives PCP: Cristina Dispo: Patient is transferred to skilled rehab [facility] today Admission and Anticipated Discharge Date Admission Date: May 08, 2020 Subjective Offers no complaint, no confusion, no fever chills No abdominal pain, stable to be transferred to rehab today Physical Exam Constitutional: no acute distress Eyes: + anicteric sclerae ENMT: external ear and nose normal, oropharynx normal Neck: trachea midline, no thyromegaly Respiratory: normal respiratory effort, lungs clear to auscultation Cardiovascular: Rate/Rhythm: regular rate and regular rhythm Extremities: + pedal edema Gastrointestinal (Abdomen): Inspection/Auscultation: + abdomen distended Percussion/Palpation: + ascites Musculoskeletal: no cyanosis or clubbing, extremities motor strength 5/5 Neurologic: PERRL, EOMI, accommodation nl, no face palsy, no dysarthria Psychiatric: A+Ox3, euthymic affect Orientation: alert Results & Data Results & Data ([facility]) Vital Signs (Past 12 Hours) Vital Signs Temp Pulse Resp BP BP Pulse Ox 05/13/20 13:54 36.7 C 62 19 148/77 H 132/80 95 05/13/20 08:00 62 05/13/20 07:05 36.7 C 59 L 19 132/80 95
--- NOTE | 2020-05-13 14:05 | Discharge Summary ---
Date of Service May 13, 2020 Admission HPI Per Admitting Provider This is an 79yo M with a PMH of HEBERT cirrhosis, insulin-dependent type II diabetes, hypertension, h/o TAVR, chronic ischemic heart disease, CKD 3 and other medical problems listed below who was directed to ED per GI for evaluation of confusion and frequent falls. [id number] at bedside, who helped with history due to patient's encephalopathic state. Over the past few days, patient has been notably more confused. Normally [id number], Irena, comes over to fill pillboxes. Has noticed that patient has not been taking as much lactulose as normal, with approximately 2 bowel movements daily (with the goal being 3-4). Currently only oriented to self and place, not to time or situation. Has had a few falls over the past few days due to "tripping over things". Ambulates with a cane. Denies any loss of consciousness or head trauma. Evaluated in outpatient setting by GI, and found to have elevated ammonia over 200. Sent in for further evaluation for hepatic encephalopathy as well as likely SNF p lacement due to ambulatory dysfunction and falls. Denies any pain. No fever, chills, lightheadedness, chest pain, abdominal pain or lower extremity swelling. Remaining ROS difficult to obtain due to confused state. Principal Diagnosis Confusion: Metabolic encephalopathy Hepatic encephalopathy, Hebert cirrhosis Ambulatory dysfunction, frequent falls Discharge Exam Constitutional no acute distress Eyes + anicteric sclerae ENMT external ear and nose normal, oropharynx normal Neck trachea midline, no thyromegaly Respiratory normal respiratory effort, lungs clear to auscultation Cardiovascular Rate/Rhythm: regular rate and regular rhythm Extremities: + pedal edema Gastrointestinal (Abdomen) Inspection/Auscultation: + abdomen distended Percussion/Palpation: + ascites Musculoskeletal no cyanosis or clubbing, extremities motor strength 5/5 Neurologic PERRL, EOMI, accommodation nl, no face palsy, no dysarthria Psychiatric A+Ox3, euthymic affect Orientation: alert Discharge Data Allergies Allergy/AdvReac Type Severity Reaction Status Date / Time PRASHANT Inhibitors Allergy Severe ANGIOEDEMA Verified 05/08/20 15:28 from 10/10/11 ED adm lisinopril Allergy Severe Edema - Verified 05/08/20 15:28 face, lips and tongue simvastatin Allergy Unknown RASH, SORE Verified 05/08/20 15:28 ALL OVER. 2013: Uses Crestor Consultations 05/08/20 16:30 ED Decision to Admit Stat 05/08/20 20:29 Consult Case Management - Discharge Planning Routine 05/09/20 08:00 Consult Gastroenterology Routine Ordered Studies 05/08/20 14:51 CT head/brain wo con Stat Hospital Course (1) Hepatic encephalopathy: Interim has completely resolved, and alert and awake oriented x3 This is an 79yo M with a PMH of HEBERT cirrhosis, insulin-dependent type II diabetes, hypertension, h/o TAVR, chronic ischemic heart disease, CKD III and other medical problems listed below who was directed to ED per GI for evaluation of hepatic encephalopathy and frequent falls. -CT head without acute abnormality, no evidence of infection in urine or chest x-ray. -Hepatic encephalopathy: Likely noncompliance with lactulose dose, -lactulose dose reduced to prior dose to Lactulose 40g BID, titrate for goal BM 3-5x a day, continue Xifaxan 550mg BID, ;low sodium diet Symptom resolved, patient's alert awake oriented x3 Mental status improved to baseline -Gi consult appreciated -Patient is continued with lactulose, Xifaxan, low-salt diet PT OT evaluation appreciated recommends inpatient rehab Accepted at skilled rehab, medically stable to be transferred today COVID-19 test ordered. Transfer to skilled rehab (2) Frequent falls: due to above Will need inpatient rehab as per PT OT evaluation Case management consulted for discharge planning issue She is medically stable to be transferred to skilled rehab at [facility] today (3) Insulin dependent diabetes mellitus: -Basal/bolus insulin per protocol, -BSG AC HS (4) CAD (coronary artery disease): No chest pain or EKG changes. Continue beta wesly (5) CKD (chronic kidney disease), stage III: Kidney function at baseline. DVT Ppx: SCDs in setting of thrombocytopenia Code status: DNR per discussion with patient, advanced directives PCP: Cristina Dispo: Patient is transferred to skilled rehab [facility] today Total Time Total Time Spent Total Time Spent (In Minutes): 30 mins Total Time Includes: Discharge Planning and Medication Reconciliation Discharge Plan Discharge Items Patient Disposition: Transfer [facility] Reason For Visit: HEPATIC ENCEPHALOPATHY, FREQUENT FALLS Discharge Diagnosis: Confusion: Metabolic encephalopathy Hepatic encephalopathy, Hebert cirrhosis Ambulatory dysfunction, frequent falls Activity: As commented below Activity Comment: Continue physical therapy occupational therapy at rehab Non-emergency contact: Primary Care Provider Call non-emergency contact if: you have any medication questions Follow-up/Referrals: Duglas Evans MD [Primary Care Provider] - Diet: Carb Consistent or DM2, Heart Healthy and Low Sodium (2gm) Addtl Attending Provider Instructions: Follow-up with family physician after discharge from rehab Follow-up with GI as per schedule Is very important to take your medications as instructed/prescribed Pending Studies at Discharge: No Stand-Alone Forms: My [facility] Skilled Items Patient informed of condition?: Yes DNR: Yes Discharge Level of Care: Skilled Communicable Disease: No Discharge Prognosis: Stable Lines: None Urinary Catheter: No Medications and DC Order Prescriptions: Continued pantoprazole 40 mg tablet,delayed release (DR/EC) 40 mg PO BID RF: 0 escitalopram oxalate 5 mg tablet 5 mg PO DAILY RF: 0 potassium chloride 10 mEq Capsule, Extended Release 20 meq PO DAILY RF: 0 tamsulosin 0.4 mg capsule 0.4 mg PO DAILY RF: 0 folic acid 1 mg tablet 1 mg PO DAILY RF: 0 metoprolol tartrate 25 mg tablet 25 mg PO BID RF: 0 ferrous gluconate 324 mg (38 mg iron) Tablet 324 mg PO BID RF: 0 rifaximin 550 mg Tablet 550 mg PO BID RF: 0 empagliflozin 25 mg Tablet 25 mg PO DAILY RF: 0 nitroglycerin 0.4 mg Tablet, Sublingual 0.4 mg sublingual UD PRN (Reason: Chest Pain) RF: 0 furosemide [Lasix] 20 mg Tablet 20 mg PO DAILY RF: 0 albuterol sulfate [Ventolin HFA] 90 mcg/actuation Hfa Aerosol Inhaler 2 puff INHALATION Q4H PRN (Reason: SHORT OF BREATH) RF: 0 fluticasone propionate [Flonase Allergy Relief] 50 mcg/actuation [place],Suspension 1 spray INTRANASAL DAILY RF: 0 lactulose 10 gram/15 mL (15 mL) Solution 40 g PO BID RF: 0 magnesium oxide 400 mg magnesium Tablet 400 mg PO BID RF: 0 ipratropium-albuterol 0.5 mg-3 mg(2.5 mg base)/3 mL Solution For Nebulization 3 ml INHALATION QID RF: 0 Lantus Solostar U-100 Insulin 100 unit/mL (3 mL) insulin pen 60 unit subcut DAILY RF: 0 Discharge Orders: Discharge Order (Routine); Ordered 05/13/20 Ordered By: Nida Pham Admission Data Admit Date/Time: 05/08/20 16:47 Attending Provider: Nida Pham Admit Provider: Nida Pham Primary Care Provider: Duglas Evans Other Providers: Nida Pham ; Bernabe Salomon ; [facility] ; [facility] Other Interventions: Discharge Summary Assessment (RN) Last Done: 05/13/20 13:54
--- NOTE | 2020-05-16 13:03 | Coding Query ---
PRESENT ON ADMISSION QUERY To promote full compliance with coding requirements relating to pateint care, physician participation is requested in all cases of advertising editor uncertainty. Please assist us with the question(s) below: Please place an X within the parenthesis (x). The following diagnosis(es) listed in this patient's medical record require physician assistance to determine if they were present on admission (POA) or not. Please advise for each diagnosis whether it was present on admission, not present on admission, or if it was clinically undetermined. 1. METABOLIC ENCEPHALOPATHY (documented on Discharge Summary) ( x) Present On Admission ( ) Not Present On Admission ( ) Clinically Undetermined Thank you Dina Bo *Definition of the present on admission (POA)-Present on admission is defined as present at the time the order for inpatient admission occurs. Conditions that develop during an outpatient encounter prior to a written order for inpatient admission (including emergency department, observation, or outpatient surgery) are considered present on admission. MTDD
== END 2020-05-13 15:07 | DRG 441 ==
LOC: ED 14:21 → 2W 16:47

== ENCOUNTER 2020-06-19 14:33 | Inpatient (IN) ==
[2020-06-19] MEDS ORDERED: SODIUM CHLORIDE 0.9% 500 ML IV ONE (14:53)
--- NOTE | 2020-06-19 15:28 | XRay Report ---
SINGLE VIEW CHEST CLINICAL HISTORY: Atypical chest pain. FINDINGS: An AP, portable, upright chest radiograph is compared to study dated 05/08/2020. Correlation is made with chest CT dated 12/17/2015. The examination is degraded by portable technique and apical lordotic positioning. The heart is enlarged noting atherosclerotic calcification of the thoracic aort a. The pulmonary vasculature is noncongested. Chronic interstitial thickening is similar to previous. Parenchymal scarring is again seen in the right midlung at both lung bases. There is mild chronic el evation of the right hemidiaphragm. No airspace consolidation or large pleural effusion is identified . No pneumothorax is seen. The skeletal structures are osteopenic. The bony thorax is grossly intact. IMPRESSION: 1. Cardiomegaly with no acute cardiopulmonary abnormality. 2. Parenchymal scarring is again seen in the right midlung. This is slightly more conspicuous as comp ared to prior studies. Follow-up in 2-3 weeks with a dedicated PA and lateral examination is recommen ded for reassessment. ACT 112: Negative or not required by law. Electronically signed by: Jamie Lunsford M.D. 06/19/2020 3:26 PM
--- NOTE | 2020-06-19 15:29 | XRay Report ---
KUB CLINICAL HISTORY: Abdominal pain. Constipation. COMPARISON STUDY: CT of the abdomen and pelvis report 2018. FINDINGS: Gallstones within the gallbladder measure up to 7 mm. There is no evidence for a bowel obst ruction. A linear density projects over the left iliac bone. This was shown to be within the left glu teal musculature on prior CT. This is unchanged. Moderate amount of stool within the colon and rectum is noted. IMPRESSION: 1. Moderate amount stool within the colon and rectum. 2. No evidence for a bowel obstruction. ACT 112: Negative or not required by law. Electronically signed by: Vikash Smith M.D. 06/19/2020 3:27 PM
[2020-06-19 15:50] LABS: Hematocrit (blood only) 40.8 % (42-52); Mean Corpuscular Hgb Conc 34.3 g/dL (32-36); Mean Corpuscular Volume 96.2 fL (80-100); RDW Coefficient of Variation 17.1 % (11.5-14.5); RDW Standard Deviation 59.8 fL (36.4-46.3); Red Blood Count 4.24 M/uL (4.7-6.1); White Blood Count 4.34 K/uL (4.8-10.8)
[2020-06-19 16:08] LABS: INR 1.1 (0.9-1.1); Partial Thromboplastin Ratio 1.1; Partial Thromboplastin Time 29.5 Seconds (21.0-31.0)
[2020-06-19 16:10] LABS: Mean Platelet Volume 11.4 fL (7.4-10.4); Platelet Count 67 K/uL (130-400)
[2020-06-19] MEDS ORDERED: LACTULOSE SYRUP 30 GM/45 ML UDP PO STA (16:18)
[2020-06-19 16:21] LABS: Alanine Aminotransferase 32 U/L (12-78); Albumin Level 2.9 gm/dl (3.4-5.0); Alkaline Phosphatase 286 U/L (45-117); Aspartate Aminotransferase 62 U/L (15-37); BUN Creatinine Ratio 12.6 (10-20); Blood Urea Nitrogen 15 mg/dl (7-18); Carbon Dioxide 23 mmol/L (21-32); Chloride 111 mmol/L (98-107); Creatinine Clr Calc Pharmacy 45.4 ml/min; Est GFR (African American) 66.7; Est GFR (Non-African American) 57.5; Globulin 2.9 gm/dl (2.5-4.0); Glucose 225 mg/dl (70-99); Lipase 210 U/L (73-393); Magnesium 2.7 mg/dl (1.8-2.4); Potassium 4.2 mmol/L (3.5-5.1); Sodium 141 mmol/L (136-145); Total Protein 5.8 gm/dl (6.4-8.2); Troponin I < 0.015 ng/ml (0-0.045)
[2020-06-19 17:05] LABS: Basophils # (auto) 0.02 K/uL (0-0.2); Basophils % (auto) 0.5 %; Eosinophils # (auto) 0.19 K/uL (0-0.5); Eosinophils % (auto) 4.4 %; Immature Granulocytes # (auto) 0.02 K/uL (0.00-0.02); Immature Granulocytes % (auto) 0.5 %; Lymphocytes # (auto) 0.74 K/uL (1.2-3.4); Lymphocytes % (auto) 17.1 %; Monocytes # (auto) 0.43 K/uL (0.11-0.59); Monocytes % (auto) 9.9 %; Neutrophils # (auto) 2.94 K/uL (1.4-6.5); Neutrophils % (auto) 67.6 %; Tear Drop Cells 1+
--- NOTE | 2020-06-19 17:16 | Emergency Department Note ---
Impression & Plan Hepatic encephalopathy, Cirrhosis of liver not due to alcohol, Hyperammonemia ED Provider Note NAME: RADHA ENRIQUEZ AGE: 79 SEX: M ARRIVES VIA: Ambulance INFORMANT: Patient, ED PROVIDER(S): Perfecto Quinteros MD CHIEF COMPLAINT: Weakness, confusion PLAN: Disposition: Admit MEDICAL DECISION MAKING: The patient is an 79-year-old gentleman with a past medical history of Hebert cirrhosis, insulin-dependent type 2 diabetes, hypertension, history of TAVR, CAD, CKD who presents emergency department from [facility], for worsening confusion and concern for recurrence of elevated ammonia is for which he has been admitted before. On arrival patient is alert to self and place but mildly confused. He denies any chest pain, shortness of breath, nausea or vomiting. He is a poor historian on the frequency of his bowel movements in setting of being on lactulose for his history of hyperammonemia. He is afebrile stable vital signs. He does have mild asterixis. EKG without overt acute ischemia. Chest x-ray without acute process. KUB does show moderate amount of stool within the colon and rectum. Otherwise nonobstructive. WBC 4.3 similar to prior. Hemoglobin within normal limits. Platelets 67K, similar to prior. Chemistry without acidosis. Glucose 200. AST 62 and alk phos 286 in the setting of the patient cirrhosis. Ammonia is elevated at 134 similar to prior admission. Troponin negative/undetectable. CT head was negative. Given the patient's worsening hyperammonemia in the setting of being at [facility] living reasonable to admit the patient for further management including likely more aggressive lactulose administration. Case was discussed with Dr. Shin, [facility] hospitalist, who will evaluate the patient for admission. Triage Nursing notes reviewed and agree them. Prior medical records reviewed Vital Signs: reviewed and remarkable for no significant abnormalities Differential diagnosis: Infection, dehydration, metabolic abnormality, hypo/hyperglycemia, electrolyte disturbance, anemia, hypoxia, cardiac sources, intracerebral event, toxicologic, neurologic, as well as other pathologies. ER treatment provided: See below. Diagnostics interpreted by me: ECG: Normal sinus rhythm, 63 bpm, no ectopy, no overt ST elevation or depression, QTC 464, QRS 76. Cardiac Monitoring: An order for continuous cardiac monitoring was placed and demonstrated Normal sinus rhythm, 63 bpm, no ectopy, Laboratory studies: See below Imaging studies: SINGLE VIEW CHEST CLINICAL HISTORY: Atypical chest pain. FINDINGS: An AP, portable, upright chest radiograph is compared to study dated 05/08/2020. Correlation is made with chest CT dated 12/17/2015. The examination is degraded by portable technique and apical lordotic positioning. The heart is enlarged noting atherosclerotic calcification of the thoracic aorta. The pulmonary vasculature is noncongested. Chronic interstitial thickening is similar to previous. Parenchymal scarring is again seen in the right midlung at both lung bases. There is mild chronic elevation of the right hemidiaphragm. No airspace consolidation or large pleural effusion is identified. No pneumothorax is seen. The skeletal structures are osteopenic. The bony thorax is grossly intact. IMPRESSION: 1. Cardiomegaly with no acute cardiopulmonary abnormality. 2. Parenchymal scarring is again seen in the right midlung. This is slightly more conspicuous as compared to prior studies. Follow-up in 2-3 weeks with a dedicated PA and lateral examination is recommended for reassessment. -- KUB CLINICAL HISTORY: Abdominal pain. Constipation. COMPARISON STUDY: CT of the abdomen and pelvis report 2018. FINDINGS: Gallstones within the gallbladder measure up to 7 mm. There is no evidence for a bowel obstruction. A linear density projects over the left iliac bone. This was shown to be within the left gluteal musculature on prior CT. This is unchanged. Moderate amount of stool within the colon and rectum is noted. IMPRESSION: 1. Moderate amount stool within the colon and rectum. 2. No evidence for a bowel obstruction. HEAD CT NONCONTRAST CT DOSE: 537.48 mGy.cm HISTORY: CONFUSION TECHNIQUE: Multiaxial CT images of the head were performed without the use of intravenous contrast. Automated exposure control was utilized for this study. A dose lowering technique was utilized adhering to the principles of ALARA. Comparison: Head CT 05/08/2020. Findings: The paranasal sinuses and mastoid air cells are clear. The calvarium and skull base are intact. There is no mass, hematoma, midline shift, acute infarct. White matter hypodensity is nonspecific but suggestive of microvascular ischemic change. The ventricles and sulci demonstrate mild age-related involutional changes. Impression: No significant change compared to the prior study. No acute intracranial abnormality. Consultation(s): Case was discussed with Dr. Shin, [facility] Hospitalist, who will evaluate the patient for admission. HPI: The patient is an 79-year-old gentleman with a past medical history of Hebert cirrhosis, insulin-dependent type 2 diabetes, hypertension, history of TAVR, CAD, CKD who presents emergency department from [facility], for worsening confusion and concern for recurrence of elevated ammonia is for which he has been admitted before. ROS: HPI/ROS was limited 2/2 patient's confusion. See above HPI for pertinent positives & negatives. A total of 10 systems reviewed and were otherwise negative. PAST MEDICAL HISTORY:See Below PAST SURGICAL HISTORY:See Below FAMILY HISTORY:See Below SOCIAL HISTORY:See Below HOME MEDICATIONS:See Below ALLERGIES:See Below VITALS:See Below PHYSICAL EXAMINATION: GENERAL: Awake, alert, fatigued-appearing, in no distress HENT: Normocephalic, atraumatic. Oropharynx with dry mucous membranes and otherwise unremarkable. EYES: Normal conjunctiva. Sclera non-icteric. NECK: Supple. No nuchal rigidity. FROM. No JVD. RESPIRATORY: Clear to auscultation. CARDIAC: Regular rate, normal rhythm. Extremities warm and well perfused. Pulses equal. ABDOMEN: Mild distension but soft. No tenderness to palpation. No rebound or guarding. No masses. RECTAL: Deferred. MUSCULOSKELETAL: Chest examination reveals no tenderness. The back is symmetrical on inspection without obvious abnormality. There is no CVA tenderness to palpation. No joint edema. LOWER EXTREMITIES: Calves are equal size bilaterally and non-tender. No edema. No discoloration. NEURO: Normal sensorium. No focal sensory or motor deficits noted. Mild BUE asterixis. Mild confusion/confabulation. SKIN: No rash or jaundice noted. Perfecto Quinteros MD Past Med/Surg History Medical History (Updated 06/20/20 @ 00:42 by Perfecto Quinteros MD) Anemia Anxiety Aortic stenosis "severe on echo 04/2017" On 07/03/16 17:13 Cande Poon wrote "severe on echo 04/2016" CAD (coronary artery disease) "2009 - RCA stent 2012 - RCA stent restenosis, s/p AMOS to RCA" Cirrhosis of liver not due to alcohol CKD (chronic kidney disease), stage III Diverticulosis Dyslipidemia GERD (gastroesophageal reflux disease) Hepatic encephalopathy Hiatal hernia HTN (hypertension) Insulin dependent diabetes mellitus Osteoarthritis Portal hypertensive gastropathy Transaminitis Surgical History H/O hemorrhoidectomy History of cardiac catheterization NO STENTS History of colonoscopy History of lumbar laminectomy History of tooth extraction Family History Son Family history of diabetes mellitus Family/Other Family hx of colon cancer Social History Smoking Status: Former smoker Second Hand Exposure: Yes; Do You Dip or Chew Tobacco: No; Hx Alcohol Use: No Hx Substance Use: No Preferred Language: Georgian Communication Ability: Effective 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 2013: Uses [facility] Meds Home Medications Medication Instructions Recorded Confirmed empagliflozin 25 mg PO DAILY 01/14/19 06/19/20 ferrous gluconate 324 mg PO BID 01/14/19 06/19/20 folic acid 1 mg PO DAILY 01/14/19 06/19/20 metoprolol tartrate 25 mg PO BID 01/14/19 06/19/20 potassium chloride 20 meq PO DAILY 01/14/19 06/19/20 rifaximin 550 mg PO BID 01/14/19 06/19/20 tamsulosin 0.4 mg PO DAILY 01/14/19 06/19/20 albuterol sulfate [Ventolin HFA] 2 puff INHALATION Q4H PRN 02/20/19 06/19/20 fluticasone propionate [Flonase 1 spray INTRANASAL DAILY 02/20/19 06/19/20 Allergy Relief] furosemide [Lasix] 20 mg PO DAILY 02/20/19 06/19/20 lactulose 40 g PO TID 02/20/19 06/19/20 magnesium oxide 400 mg PO BID 02/20/19 06/19/20 nitroglycerin 0.4 mg SUBLINGUAL UD PRN 02/20/19 06/19/20 ipratropium-albuterol 3 ml INHALATION QID 01/13/20 06/19/20 Lantus Solostar U-100 Insulin 28 unit SUBCUT BID 03/16/20 06/19/20 escitalopram oxalate 5 mg PO DAILY 05/08/20 06/19/20 pantoprazole 40 mg PO BID 05/08/20 06/19/20 acetaminophen [Tylenol] 650 mg PO Q4 PRN 06/19/20 06/19/20 insulin aspart U-100 [Novolog 0 unit SUBCUT TID 06/19/20 06/19/20 Flexpen U-100 Insulin] Results & Data (ED) Vital Signs Vital Signs - 24 hr 06/19/20 14:33 06/19/20 14:39 06/19/20 14:52 Temperature 37 C Temperature Source Oral Pulse Rate 67 65 Pulse Rate from SpO2 Sensor 65 Pulse Rhythm Regular Pulse Strength Normal Respiratory Rate 12 20 Respiratory Effort / Characteristics Non-Labored Respiratory Depth Normal Respiratory Pattern Regular Blood Pressure 127/62 127/62 Blood Pressure Mean 83 93 Blood Pressure Position Lying Pulse Oximetry 95 94 95 Oxygen Delivery Method Room Air Room Air Sepsis Recent Fever Within 48 Hours No Sepsis New/Unexplained Change in Mental Status No Sepsis Action Taken by Nursing No Action Required 06/19/20 15:00 06/19/20 15:33 06/19/20 16:00 Temperature Temperature Source Pulse Rate 64 66 Pulse Rate from SpO2 Sensor 64 65 Pulse Rhythm Pulse Strength Respiratory Rate 20 18 Respiratory Effort / Characteristics Respiratory Depth Respiratory Pattern Blood Pressure 121/58 L 119/52 L 130/64 Blood Pressure Mean 98 83 99 Blood Pressure Position Pulse Oximetry 95 96 Oxygen Delivery Method Sepsis Recent Fever Within 48 Hours Sepsis New/Unexplained Change in Mental Status Sepsis Action Taken by Nursing 06/19/20 16:30 06/19/20 17:00 06/19/20 17:30 Temperature Temperature Source Pulse Rate 66 67 62 Pulse Rate from SpO2 Sensor 67 66 62 Pulse Rhythm Pulse Strength Respiratory Rate 16 18 17 Respiratory Effort / Characteristics Respiratory Depth Respiratory Pattern Blood Pressure 134/62 125/66 111/52 L Blood Pressure Mean 90 100 70 Blood Pressure Position Pulse Oximetry 96 94 95 Oxygen Delivery Method Sepsis Recent Fever Within 48 Hours Sepsis New/Unexplained Change in Mental Status Sepsis Action Taken by Nursing 06/19/20 18:00 Temperature Temperature Source Pulse Rate 62 Pulse Rate from SpO2 Sensor 62 Pulse Rhythm Pulse Strength Respiratory Rate 16 Respiratory Effort / Characteristics Respiratory Depth Respiratory Pattern Blood Pressure 121/53 L Blood Pressure Mean 79 Blood Pressure Position Pulse Oximetry 95 Oxygen Delivery Method Sepsis Recent Fever Within 48 Hours Sepsis New/Unexplained Change in Mental Status Sepsis Action Taken by Nursing Laboratory Data Attestation: I reviewed the patient's lab results. Result diagrams: 06/19/20 15:25 06/19/20 15:25 Lab Results 06/19/20 06/19/20 06/19/20 Range/Units 15:25 15:25 15:25 WBC 4.34 L (4.8-10.8) K/uL RBC 4.24 L (4.7-6.1) M/uL Hgb 14.0 (14.0-18.0) g/dL Hct 40.8 L (42-52) % MCV 96.2 (80-100) fL MCH 33.0 (25-34) pg MCHC 34.3 (32-36) g/dL RDW Std Deviation 59.8 H (36.4-46.3) fL RDW Coeff of Adrian 17.1 H (11.5-14.5) % Plt Count 67 L (130-400) K/uL MPV 11.4 H (7.4-10.4) fL Immature Gran % (Auto) 0.5 % Neut % (Auto) 67.6 % Lymph % (Auto) 17.1 % Rabun % (Auto) 9.9 % Eos % (Auto) 4.4 % Baso % (Auto) 0.5 % Neut # (Auto) 2.94 (1.4-6.5) K/uL Lymph # (Auto) 0.74 L (1.2-3.4) K/uL Rabun # (Auto) 0.43 (0.11-0.59) K/uL Eos # (Auto) 0.19 (0-0.5) K/uL Baso # (Auto) 0.02 (0-0.2) K/uL Immature Gran # (Auto) 0.02 (0.00-0.02) K/uL Tear Drop Cells 1+ ESR (0-14) mm/hr PT 12.0 (9.0-12.0) Seconds INR 1.1 (0.9-1.1) APTT 29.5 (21.0-31.0) Seconds PTT Ratio 1.1 Sodium 141 (136-145) mmol/L Potassium 4.2 (3.5-5.1) mmol/L Chloride 111 H (98-107) mmol/L Carbon Dioxide 23 (21-32) mmol/L Anion Gap 7.0 (3-11) BUN 15 (7-18) mg/dl Creatinine 1.18 (0.6-1.4) mg/dl Est Cr Clr Drug Dosing 45.4 ml/min Est GFR ( Amer) 66.7 Est GFR (Non-Af Amer) 57.5 BUN/Creatinine Ratio 12.6 (10-20) Glucose 225 H (70-99) mg/dl Calcium 9.0 (8.5-10.1) mg/dl Phosphorus 2.0 L (2.5-4.9) mg/dl Magnesium 2.7 H (1.8-2.4) mg/dl Total Bilirubin 1.0 (0.2-1) mg/dl Direct Bilirubin TNP AST 62 H (15-37) U/L ALT 32 (12-78) U/L Alkaline Phosphatase 286 H (45-117) U/L Ammonia (11-32) umol/L Troponin I < 0.015 (0-0.045) ng/ml C-Reactive Protein (0-0.29) mg/dl Total Protein 5.8 L (6.4-8.2) gm/dl Albumin 2.9 L (3.4-5.0) gm/dl Globulin 2.9 (2.5-4.0) gm/dl Albumin/Globulin Ratio 1.0 (0.9-2) Lipase 210 (73-393) U/L Specimen Hemolysis 06/19/20 06/19/20 06/19/20 Range/Units 15:25 15:25 15:25 WBC (4.8-10.8) K/uL RBC (4.7-6.1) M/uL Hgb (14.0-18.0) g/dL Hct (42-52) % MCV (80-100) fL MCH (25-34) pg MCHC (32-36) g/dL RDW Std Deviation (36.4-46.3) fL RDW Coeff of Adrian (11.5-14.5) % Plt Count (130-400) K/uL MPV (7.4-10.4) fL Immature Gran % (Auto) % Neut % (Auto) % Lymph % (Auto) % Rabun % (Auto) % Eos % (Auto) % Baso % (Auto) % Neut # (Auto) (1.4-6.5) K/uL Lymph # (Auto) (1.2-3.4) K/uL Rabun # (Auto) (0.11-0.59) K/uL Eos # (Auto) (0-0.5) K/uL Baso # (Auto) (0-0.2) K/uL Immature Gran # (Auto) (0.00-0.02) K/uL Tear Drop Cells ESR 3 (0-14) mm/hr PT (9.0-12.0) Seconds INR (0.9-1.1) APTT (21.0-31.0) Seconds PTT Ratio Sodium (136-145) mmol/L Potassium (3.5-5.1) mmol/L Chloride (98-107) mmol/L Carbon Dioxide (21-32) mmol/L Anion Gap (3-11) BUN (7-18) mg/dl Creatinine (0.6-1.4) mg/dl Est Cr Clr Drug Dosing ml/min Est GFR ( Amer) Est GFR (Non-Af Amer) BUN/Creatinine Ratio (10-20) Glucose (70-99) mg/dl Calcium (8.5-10.1) mg/dl Phosphorus (2.5-4.9) mg/dl Magnesium (1.8-2.4) mg/dl Total Bilirubin (0.2-1) mg/dl Direct Bilirubin AST (15-37) U/L ALT (12-78) U/L Alkaline Phosphatase (45-117) U/L Ammonia 134.0 H (11-32) umol/L Troponin I (0-0.045) ng/ml C-Reactive Protein 1.01 H (0-0.29) mg/dl Total Protein (6.4-8.2) gm/dl Albumin (3.4-5.0) gm/dl Globulin (2.5-4.0) gm/dl Albumin/Globulin Ratio (0.9-2) Lipase (73-393) U/L Specimen Hemolysis Administered Medications Ferrous Gluconate (Ferrous Gluconate 324 Mg Tab) 324 mg PO BID GOSIA Stop: 07/19/20 20:59 Last Admin: 06/19/20 21:31 Dose: 324 mg Documented by: [id number] Folic Acid (Folic Acid 400 Mcg Tab) 400 mcg PO QAM GOSIA Stop: 07/19/20 18:14 Last Admin: 06/19/20 21:31 Dose: 400 mcg Documented by: [id number] Insulin Aspart (Insulin Aspart 100 Units/Ml 3 Ml Pen) 0 units SC ACHS GOSIA Stop: 07/19/20 20:59 Last Admin: 06/19/20 21:35 Dose: 1 units Documented by: [id number] Cosigned by: [id number] Insulin Glargine (Insulin Glargine Solostar 100 Units/Ml 3 Ml Pen) 20 units SC BID GOSIA Stop: 07/19/20 20:59 Last Admin: 06/19/20 21:34 Dose: 20 units Documented by: [id number] Cosigned by: [id number] Lactulose (Lactulose Syrup 20 Gm/30 Ml Udc) 40 gm PO TID GOSIA Stop: 07/19/20 20:59 Last Admin: 06/19/20 22:27 Dose: 40 gm Documented by: [id number] Metoprolol Tartrate (Metoprolol Tartrate 25 Mg Tab) 25 mg PO BID GOSIA Stop: 07/19/20 20:59 Last Admin: 06/19/20 21:32 Dose: 25 mg Documented by: [id number] Pantoprazole Sodium (Pantoprazole 40 Mg Tab) 40 mg PO BID GOSIA Stop: 07/19/20 20:59 Last Admin: 06/19/20 21:32 Dose: 40 mg Documented by: [id number] Potassium Phosphate (Pot Phosphate Monobasic W/ Sod Tab) 1 tab PO QID GOSIA Stop: 07/19/20 20:59 Last Admin: 06/19/20 21:31 Dose: 1 tab Documented by: [id number] Rifaximin (Rifaximin 550 Mg Tablet) 550 mg PO BID GOSIA Stop: 07/19/20 20:59 Last Admin: 10/01/20 21:33 Dose: 550 mg Documented by: [id number] Discontinued Medications Sodium Chloride (Nss) 500 mls @ 999 mls/hr IV .Q31M ONE Stop: 06/19/20 15:23 Last Infusion: 06/19/20 16:03 Dose: 0 mls/hr Documented by: [id number] Admin: 06/19/20 15:29 Dose: 999 mls/hr Documented by: [id number] Multivitamins 10 ml/ Thiamine HCl 100 mg/ Folic Acid 1 mg/Sodium Chloride 1,011.2 mls @ 1,011.2 mls/hr IV .Q1H ONE Stop: 06/19/20 19:29 Last Infusion: 06/19/20 20:26 Dose: 0 mls/hr Documented by: [id number] Admin: 06/19/20 19:26 Dose: 1,011.2 mls/hr Documented by: [id number] Sodium Phosphate 24 mmol/ (Sodium Chloride) 508 mls @ 127 mls/hr IV 1830 ONE Stop: 06/19/20 22:29 Last Infusion: 06/20/20 00:02 Dose: 0 mls/hr Documented by: [id number] Admin: 06/19/20 20:02 Dose: 127 mls/hr Documented by: [id number] Ceftriaxone Sodium (Rocephin) 2,000 mg in 70 mls @ 140 mls/hr IV NOW STA Stop: 06/19/20 18:47 Last Infusion: 06/19/20 19:55 Dose: 0 mls/hr Documented by: [id number] Admin: 06/19/20 19:25 Dose: 140 mls/hr Documented by: [id number] Lactulose (Lactulose Syrup 30 Gm/45 Ml Udp) 30 gm PO NOW STA Stop: 06/19/20 16:19 Last Admin: 06/19/20 16:56 Dose: 30 gm Documented by: [id number] Discharge Plan Visit Data Chief Complaint: Lethargic Stated Complaint: lethagic/ [place] ED Provider: Perfecto Quinteros Discharge Problem: Hepatic encephalopathy, Cirrhosis of liver not due to alcohol, Hyperammonemia Patient Disposition: Admitted As Inpatient Discharge Instructions Interventions: ED Discharge Assessment Last Done: 06/19/20 19:46
--- NOTE | 2020-06-19 17:23 | CT Scan Report ---
HEAD CT NONCONTRAST CT DOSE: 537.48 mGy.cm HISTORY: CONFUSION TECHNIQUE: Multiaxial CT images of the head were performed without the use of intravenous contrast. A utomated exposure control was utilized for this study. A dose lowering technique was utilized adheri ng to the principles of ALARA. Comparison: Head CT 05/08/2020. Findings: The paranasal sinuses and mastoid air cells are clear. The calvarium and skull base are int act. There is no mass, hematoma, midline shift, acute infarct. White matter hypodensity is nonspecifi c but suggestive of microvascular ischemic change. The ventricles and sulci demonstrate mild age-rela lilo involutional changes. Impression: No significant change compared to the prior study. No acute intracranial abnormality. ACT 112: Negative or not required by law. Electronically signed by: Freedom Regan M.D. 06/19/2020 5:22 PM
--- NOTE | 2020-06-19 18:07 | History & Physical Report ---
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 The notes on arrival also concerned of abdominal discomforts. But as per ED assessment and hospitalist assessment, patient's confusion appears to be mild to moderate. Patient is a poor historian but he is able to follow directions. He does not know the year or the month. His daughter in law Irena on the telephone ([phone], ) reports that patient's Code Status is DNR/DNI. Patient reports he uses cane with ambulation at home and this is supported by accompanied documentation from assisted living facility. Patient does not appear to have any abdominal pain and denies of having pain anywhere to the body. He has a hernia to the left of the umbilicus but does not appear to have gross ascites. Patient breathing on room air. He is not short of breath. Patient was able to take the lactulose by mouth as ordered by the ED provider -continue Lactulose as home dose 40 mg TID with home dose rifaximin 550 mg BID, trend the serum ammonia levels, check blood culture and urine analysis, no signs of Spontaneous bacterial peritonitis (SBP) 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 but given decompensation of cirrhosis with the elevated ammonia levels and concerns of mental status not at baseline the ceftriaxone 2 grams IV daily to be started, follow the blood cultures and inflammatory markers, ,gastroenterology consult -continue home dose Lasix -aspiration precautions, dysphagia screening/speech and swallow evaluation Hypophosphatemia -serum phosphorous of 2. ordered IV phosphorous in the ED and oral phosphorous -serum magnesium is 2.7 and serum potassium at goal so will hold off scheduled home dose magnesium and potassium supplements for now -give banana bag, daily folic acid, daily thiamine -fittings tightener consult Type 2 Diabetes Mellitus with assisted current use of insulin -check hemoglobin A1c -hold home dose empagliflozin -reducing home dose Lantus of 28 units BID for now and use Lantus 20 units BID 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, titrate insulin as needed -sliding scale insulin as needed Iron Deficiency anemia Thrombocytopenia (likely related to cirrhosis) -continue home dose supplementary iron supplements, monitor the CBC and platelets chronic kidney disease stage III -monitor the renal function GERD -continue pantoprazole Diaphragmatic hernia -chronic other cardiac pulmonary history as per records: -coronary artery disease, chronic ischemic heart disease, s/p angioplasty with stent, aortic valve stenosis, s/p TAVR, interstitial pulmonary disease, hypertension, right pulmonary nodule -continue home dose metoprolol tartrate 25 mg BID -nebulizers as needed PT/OT evaluations case management consult daughter in law Osborn ([phone], ) reports that patient's Code Status is DNR/DNI via telephone with admiting physician trevon Rodriguez ([phone], ) My colleague Dr. 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 The notes on arrival also concerned of abdominal discomforts. But as per ED assessment and hospitalist assessment, patient's confusion appears to be mild to moderate. Patient is a poor historian but he is able to follow directions. He does not know the year or the month. His daughter in law Osborn on the telephone ([phone], ) reports that patient's Code Status is DNR/DNI. Patient reports he uses cane with ambulation at home and this is supported by accompanied documentation from [facility]. Patient does not appear to have any abdominal pain and denies of having pain anywhere to the body. He has a hernia to the left of the umbilicus but does not appear to have gross ascites. Patient breathing on room air. He is not short of breath. Patient was able to take the lactulose by mouth as ordered by the ED provider Allergies in the records are list as angioedema from PRASHANT inhibitors, and muscle pain from simvastatin Primary Care Provider: Duglas Evans MD Allergies Allergy/AdvReac Type Severity Reaction Status Date / Time PRASHANT Inhibitors Allergy Severe ANGIOEDEMA Verified 06/19/20 17:57 from 10/10/11 ED adm lisinopril Allergy Severe Edema - Verified 06/19/20 17:57 face, lips and tongue simvastatin Allergy Unknown RASH, SORE Verified 06/19/20 17:57 ALL OVER. 2013: Uses Crestor Home Medications Home Medications Medication Instructions Recorded Confirmed Type empagliflozin 25 mg PO DAILY 01/14/19 06/19/20 History ferrous gluconate 324 mg PO BID 01/14/19 06/19/20 History folic acid 1 mg PO DAILY 01/14/19 06/19/20 History metoprolol tartrate 25 mg PO BID 01/14/19 06/19/20 History potassium chloride 20 meq PO DAILY 01/14/19 06/19/20 History rifaximin 550 mg PO BID 01/14/19 06/19/20 History tamsulosin 0.4 mg PO DAILY 01/14/19 06/19/20 History albuterol sulfate [Ventolin HFA] 2 puff INHALATION Q4H PRN 02/20/19 06/19/20 History fluticasone propionate [Flonase 1 spray INTRANASAL DAILY 02/20/19 06/19/20 History Allergy Relief] furosemide [Lasix] 20 mg PO DAILY 02/20/19 06/19/20 History lactulose 40 g PO TID 02/20/19 06/19/20 History magnesium oxide 400 mg PO BID 02/20/19 06/19/20 History nitroglycerin 0.4 mg SUBLINGUAL UD PRN 02/20/19 06/19/20 History ipratropium-albuterol 3 ml INHALATION QID 01/13/20 06/19/20 History Lantus Solostar U-100 Insulin 28 unit SUBCUT BID 03/16/20 06/19/20 History escitalopram oxalate 5 mg PO DAILY 05/08/20 06/19/20 History pantoprazole 40 mg PO BID 05/08/20 06/19/20 History acetaminophen [Tylenol] 650 mg PO Q4 PRN 06/19/20 06/19/20 History insulin aspart U-100 [Novolog 0 unit SUBCUT TID 06/19/20 06/19/20 History Flexpen U-100 Insulin] Past Med/Surg History Medical History Anemia Anxiety Aortic stenosis "severe on echo 04/2017" On 07/03/16 17:13 Cande Poon wrote "severe on echo 04/2016" CAD (coronary artery disease) "2009 - RCA stent 2012 - RCA stent restenosis, s/p AMOS to RCA" Cirrhosis of liver not due to alcohol CKD (chronic kidney disease), stage III Diverticulosis Dyslipidemia GERD (gastroesophageal reflux disease) Hepatic encephalopathy Hiatal hernia HTN (hypertension) Insulin dependent diabetes mellitus Osteoarthritis Portal hypertensive gastropathy Transaminitis Surgical History H/O hemorrhoidectomy History of cardiac catheterization NO STENTS History of colonoscopy History of lumbar laminectomy History of tooth extraction Family History Son Family history of diabetes mellitus Family/Other Family hx of colon cancer Social History Smoking Status: Former smoker Second Hand Exposure: Yes; Hx Alcohol Use: No (former) Hx Substance Use: No Preferred Language: Italian Communication Ability: Effective Squad Leader Required: No Beliefs That Will Affect Care: None marital status: / Current Living Situation: Alone How many Children do You have: 3 Feels Safe at Home: Yes Assistive Devices: Cane, Glasses and Walker Review of Systems Review of Systems: All systems reviewed & are unremarkable except as noted in Subjective Physical Exam Constitutional: + frail appearing and cooperative Eyes: PERRL, conjunctivae normal, anicteric sclerae EOM intact bilaterally ENMT: external ear and nose normal, oropharynx normal Neck: normal visual inspection Respiratory: normal respiratory effort, lungs clear to auscultation Cardiovascular: Rate/Rhythm: + bradycardic Gastrointestinal (Abdomen): Percussion/Palpation: abdomen soft (abdominal hernia) Musculoskeletal: Head/Neck/Chest: normocephalic and head atraumatic Neurologic: PERRL, EOMI, accommodation nl, no face palsy, no dysarthria moves all extremities Psychiatric: Orientation: alert and cooperative Results & Data Results & Data ([facility]) Vital Signs (Past 12 Hours) Vital Signs Temp Pulse Resp BP Pulse Ox 06/19/20 17:30 62 17 111/52 L 95 06/19/20 17:00 67 18 125/66 94 06/19/20 16:30 66 16 134/62 96 06/19/20 16:00 66 18 130/64 96 06/19/20 15:33 64 20 119/52 L 95 06/19/20 15:00 121/58 L 06/19/20 14:52 95 06/19/20 14:39 65 20 127/62 94 06/19/20 14:33 37 C 67 12 127/62 95
[2020-06-19] MEDS ORDERED: SODIUM PHOSPHATE 3 MMOL/1 ML INFUSION IV STA (18:09)
[2020-06-19] MEDS ORDERED: NITROGLYCERIN SL 0.4 MG/TAB TAB SL PRN (18:11)
[2020-06-19] MEDS ORDERED: cefTRIAXone SODIUM 2,000 MG/70 ML BAG IV STA (18:18)
[2020-06-19] MEDS ORDERED: GLUCOSE 10 TABS/TUBE PO PRN (18:19)
[2020-06-19] MEDS ORDERED: CARBOHYDRATES FOR HYPOGLYCEMIA PO PRN (18:19)
[2020-06-19] MEDS ORDERED: DEXTROSE 50% 50 ML SYRINGE IV PRN (18:19)
[2020-06-19] MEDS ORDERED: GLUCAGON FOR INJ 1 MG VIAL SQ PRN (18:19)
[2020-06-19] MEDS ORDERED: GLUCOSE 40% GEL 15 GM TUBE PO PRN (18:19)
[2020-06-19] MEDS ORDERED: MULTI-VITAMIN INFUSION 10 ML, THIAMINE HCL 100 MG, FOLIC ACID 1 MG in SODIUM CHLORIDE 0... IV ONE (18:30)
[2020-06-19] MEDS ORDERED: SODIUM PHOSPHATE 24 MMOL in SODIUM CHLORIDE 0.9% 500 ML IV ONE (18:30)
[2020-06-19] MEDS ORDERED: LACTULOSE SYRUP 10 GM/15 ML BTL 960 ML PO SCH (21:00)
[2020-06-19] MEDS: FOLIC ACID 400 MCG TAB PO SCH (21:31)
[2020-06-19] MEDS: POT PHOSPHATE MONOBASIC W/ SOD TAB PO SCH (21:31)
[2020-06-19] MEDS: FERROUS GLUCONATE 324 MG TAB PO SCH (21:31)
[2020-06-19] MEDS: METOPROLOL TARTRATE 25 MG TAB PO SCH (21:32)
[2020-06-19] MEDS: PANTOprazole 40 MG TAB PO SCH (21:32)
[2020-06-19] MEDS: RIFAXIMIN 550 MG TABLET PO SCH (21:33)
[2020-06-19] MEDS: INSULIN GLARGINE SOLOSTAR 100 UNITS/ML 3 ML PEN SC SCH (21:34)
[2020-06-19] MEDS: INSULIN ASPART 100 UNITS/ML 3 ML PEN SC SCH (21:35)
[2020-06-19] MEDS: LACTULOSE SYRUP 20 GM/30 ML UDC PO SCH (22:27)
[2020-06-20 06:51] LABS: Hemoglobin 13.5 g/dL (14.0-18.0); Mean Corpuscular Hemoglobin 33.3 pg (25-34); Mean Corpuscular Hgb Conc 34.6 g/dL (32-36); Mean Corpuscular Volume 96.1 fL (80-100); RDW Coefficient of Variation 17.1 % (11.5-14.5); RDW Standard Deviation 60.4 fL (36.4-46.3); Red Blood Count 4.06 M/uL (4.7-6.1); White Blood Count 4.35 K/uL (4.8-10.8)
[2020-06-20 07:01] LABS: INR 1.2 (0.9-1.1); Partial Thromboplastin Ratio 1.1; Partial Thromboplastin Time 29.6 Seconds (21.0-31.0); Prothrombin Time 12.4 Seconds (9.0-12.0)
[2020-06-20 07:25] LABS: Albumin Level 2.6 gm/dl (3.4-5.0); Calcium 8.7 mg/dl (8.5-10.1); Creatinine Clr Calc Pharmacy 58.4 ml/min; Est GFR (African American) 92.9; Est GFR (Non-African American) 80.2; Magnesium 2.3 mg/dl (1.8-2.4); Potassium 3.6 mmol/L (3.5-5.1)
[2020-06-20 07:31] LABS: Mean Platelet Volume 10.8 fL (7.4-10.4); Platelet Count 60 K/uL (130-400)
[2020-06-20 07:32] LABS: Basophils # (auto) 0.05 K/uL (0-0.2); Basophils % (auto) 1.1 %; Eosinophils # (auto) 0.41 K/uL (0-0.5); Eosinophils % (auto) 9.4 %; Immature Granulocytes # (auto) 0.01 K/uL (0.00-0.02); Immature Granulocytes % (auto) 0.2 %; Lymphocytes # (auto) 0.85 K/uL (1.2-3.4); Lymphocytes % (auto) 19.5 %; Monocytes % (auto) 11.5 %; Neutrophils # (auto) 2.53 K/uL (1.4-6.5); Neutrophils % (auto) 58.3 %; Platelet Estimate Decreased (Normal)
[2020-06-20 07:35] LABS: Albumin Globulin Ratio 0.9 (0.9-2); Bilirubin,Total 1.1 mg/dl (0.2-1); Globulin 2.8 gm/dl (2.5-4.0); Phosphorus 3.5 mg/dl (2.5-4.9); Total Protein 5.4 gm/dl (6.4-8.2)
[2020-06-20 08:12] LABS: Estimated Average Glucose 140 mg/dl; Hemoglobin A1C 6.5 % (4.5-5.6)
--- NOTE | 2020-06-20 10:34 | Ultrasound Report ---
US abdomen ltd ascites CLINICAL HISTORY: hepatic encephalopathy, r/o SBP COMPARISON STUDY: CT of the abdomen and pelvis November 12, 2018. KUB June 19, 2020. FINDINGS: The patient presented today for paracentesis. No fluid was identified within the 4 quadrant s. Therefore, no paracentesis was performed. IMPRESSION: No ascites. ACT 112: Negative or not required by law. Electronically signed by: Vikash Smith M.D. 06/20/2020 10:33 AM
[2020-06-20] MEDS: RIFAXIMIN 550 MG TABLET PO SCH ×2 (10:47→21:43)
[2020-06-20] MEDS: FERROUS GLUCONATE 324 MG TAB PO SCH ×2 (10:48→21:40)
[2020-06-20] MEDS: PANTOprazole 40 MG TAB PO SCH ×2 (10:49→21:42)
[2020-06-20] MEDS: FOLIC ACID 400 MCG TAB PO SCH (10:49)
[2020-06-20] MEDS: FUROSEMIDE 20 MG TAB PO SCH (10:50)
[2020-06-20] MEDS: METOPROLOL TARTRATE 25 MG TAB PO SCH ×3 (10:50→21:41)
[2020-06-20] MEDS: INSULIN ASPART 100 UNITS/ML 3 ML PEN SC SCH ×4 (10:51→21:17)
[2020-06-20] MEDS: LACTULOSE SYRUP 20 GM/30 ML UDC PO SCH ×3 (10:51→21:39)
[2020-06-20] MEDS: THIAMINE HCL 100 MG in SYRINGE 9 ML IV SCH (10:52)
[2020-06-20] MEDS: POT PHOSPHATE MONOBASIC W/ SOD TAB PO SCH ×4 (10:52→21:41)
[2020-06-20] MEDS: ESCITALOPRAM OXALATE 10 MG TAB PO SCH (10:53)
[2020-06-20] MEDS: INSULIN GLARGINE SOLOSTAR 100 UNITS/ML 3 ML PEN SC SCH ×2 (10:55→21:40)
[2020-06-20] MEDS: TAMSULOSIN HCL 0.4 MG CAP PO SCH (10:57)
--- NOTE | 2020-06-20 12:59 | Gastrointestinal Consultation ---
Date of Consultation June 20, 2020 Assessment & Plan (1) Hepatic encephalopathy: 1. Will watch for results of blood cultures. 2. Lactulose QID - on DC, titrate to pass 2-3 loose BMs/day. 3. Continue rifaximin. 4. Two gram sodium diet with aspiration precautions. Present on Admission?: Yes (2) Cirrhosis of liver not due to alcohol: Supervising Physician Co-Signing Physician Notes Attending attestation I have seen, examined this patient, and agree with the findings and above by our mid-level provider MICHAEL Ruth, with the following additions: Patient admitted with a questionable history if had been adherent with medications, clearly has mild encephalopathy but able to converse and is oriented to person and place not time. Mild asterixis. Continue lactulose as well as rifaximin. Follow cultures as well as urine culture to be added to ensure no other evidence of causality of encephalopathy. History of Present Illness Reason for Consultation: Hepatic Encephalopathy Requesting Physician: Dr. Shin Attending Physician: Precious Ragland MD History of Present Illness Mr. Bryan Quintero is an 79 yr old male pt of Dr. Evans with a hx of DM-2, CKD-3 GERD, Aortic Valve Replacement and KLEIN cirrhosis complicated by PHG and prior hepatic encephalopathy. He is maintained on rifaximin and at his most r ecent appt was instructed to titrate lactulose up to 4x/day to affect 2-3 loose stools/day. Do to general weakness and low functional capcity, he was recently placed at [facility] and was brought to the ED for confusion yesterday. On arrival, pt was confused and ammonia elevated to 134. He did not show any obvious signs of infection: (UA clean, CXR w/o acute abnormalities though Paren chymal scarring was worsened compared to prior). CT head w/o acute changes. He was afebrile and w/o leukocytosis. Blood cultures were drawn and were (-) thus far. There was no report of any GI bleeding. Today, he is able to tell me his full name and that he is "in the hospital...in [place]," but unable to tell me the day, month, year or why he is here. Most recent EGD in February 2020 with PHG, no varices. Most recent colonoscopy in February 2020 with one 5mm polyps and internal hemorrhoids. Due for liver imaging for screening for HCC: most recent 2018. Allergies Allergy/AdvReac Type Severity Reaction Status Date / Time PRASHANT Inhibitors Allergy Severe ANGIOEDEMA Verified 06/19/20 17:57 from 10/10/11 ED adm lisinopril Allergy Severe Edema - Verified 06/19/20 17:57 face, lips and tongue simvastatin Allergy Unknown RASH, SORE Verified 06/19/20 17:57 ALL OVER. 2013: Uses Crestor Home Medications Home Medications Medication Instructions Recorded Confirmed Type empagliflozin 25 mg PO DAILY 01/14/19 06/19/20 History ferrous gluconate 324 mg PO BID 01/14/19 06/19/20 History folic acid 1 mg PO DAILY 01/14/19 06/19/20 History metoprolol tartrate 25 mg PO BID 01/14/19 06/19/20 History potassium chloride 20 meq PO DAILY 01/14/19 06/19/20 History rifaximin 550 mg PO BID 01/14/19 06/19/20 History tamsulosin 0.4 mg PO DAILY 01/14/19 06/19/20 History albuterol sulfate [Ventolin HFA] 2 puff INHALATION Q4H PRN 02/20/19 06/19/20 History fluticasone propionate [Flonase 1 spray INTRANASAL DAILY 02/20/19 06/19/20 History Allergy Relief] furosemide [Lasix] 20 mg PO DAILY 02/20/19 06/19/20 History lactulose 40 g PO TID 02/20/19 06/19/20 History magnesium oxide 400 mg PO BID 02/20/19 06/19/20 History nitroglycerin 0.4 mg SUBLINGUAL UD PRN 02/20/19 06/19/20 History ipratropium-albuterol 3 ml INHALATION QID 01/13/20 06/19/20 History Lantus Solostar U-100 Insulin 28 unit SUBCUT BID 03/16/20 06/19/20 History escitalopram oxalate 5 mg PO DAILY 05/08/20 06/19/20 History pantoprazole 40 mg PO BID 05/08/20 06/19/20 History acetaminophen [Tylenol] 650 mg PO Q4 PRN 06/19/20 06/19/20 History insulin aspart U-100 [Novolog 0 unit SUBCUT TID 06/19/20 06/19/20 History Flexpen U-100 Insulin] Patient History Medical History (Updated 06/20/20 @ 00:42 by Perfecto Quinteros MD) Anemia Anxiety Aortic stenosis "severe on echo 04/2017" On 07/03/16 17:13 Cande Poon wrote "severe on echo 04/2016" CAD (coronary artery disease) "2009 - RCA stent 2012 - RCA stent restenosis, s/p AMOS to RCA" Cirrhosis of liver not due to alcohol CKD (chronic kidney disease), stage III Diverticulosis Dyslipidemia GERD (gastroesophageal reflux disease) Hepatic encephalopathy Hiatal hernia HTN (hypertension) Insulin dependent diabetes mellitus Osteoarthritis Portal hypertensive gastropathy Transaminitis Surgical History H/O hemorrhoidectomy History of cardiac catheterization NO STENTS History of colonoscopy History of lumbar laminectomy History of tooth extraction Family History Son Family history of diabetes mellitus Family/Other Family hx of colon cancer Social History Smoking Status: Former smoker Second Hand Exposure: Yes; Do You Dip or Chew Tobacco: No; Hx Alcohol Use: No Hx Substance Use: No Preferred Language: Sierra Leonean Communication Ability: Effective 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 Eyes: No eye redness, or pain, no recent vision changes Resp: No SOB, no cough Cardio: No palpitations/irregular beats, no chest pain GI: No abdominal pain, no nausea/vomiting : Denies pain on urination Skin: No jaundice, itching or new rashes Eyes: No eye redness, no impaired vision or double vision Physical Exam Constitutional: WD/WN, vitals as above + altered mental status (confusion, cooperative) Eyes: PERRL, conjunctivae normal, anicteric sclerae ENMT: external ear and nose normal, oropharynx normal Neck: trachea midline, no thyromegaly Respiratory: normal respiratory effort Auscultation: + wheezes; no crackles Cardiovascular: Rate/Rhythm: regular rate and regular rhythm 2/6 systolic murmur Gastrointestinal (Abdomen): normal bowel sounds, soft, nontender, no hepatosplenomegaly Percussion/Palpation: abdomen soft; no ascites obese Skin: no rashes, warm and dry no jaundice Neurologic: PERRL, EOMI, accommodation nl, no face palsy, no dysarthria 1 beat of asterix present, mild tremor bilat Psychiatric: Affect: + flat affect Insight: + poor insight Judgement: + limited judgement Lymphatic: no cervical or axillary lymphadenopathy Results & Data ([facility]) Vital Signs (Past 12 Hours) Vital Signs Temp Pulse Pulse Resp BP Pulse Ox 06/20/20 11:02 36.7 C 56 L 16 123/64 95 06/20/20 07:46 36.8 C 57 L 20 116/70 95 06/20/20 07:00 58 L 06/20/20 03:26 36.8 C 60 16 128/61 95 Laboratory Results WBC4.35, Hb 13, Hct 39, Platelet 6, PT 12.4, INR 1.2, Na 148, K 36, BUN 11, Cr 0.8, T Bili1.1, AST 51, ALT 28, Alk Phos 230 Diagnostic Findings Abd US w/o ascites
--- NOTE | 2020-06-20 15:13 | Hospitalist Progress Note ---
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 ordered IV phosphorous in the ED and oral phosphorous -serum magnesium is 2.7 and serum potassium at goal so will hold off scheduled home dose magnesium and potassium supplements for now -give banana bag, daily folic acid, daily thiamine -donor services coordinator consult -Hospital level has been normalized Type 2 Diabetes Mellitus with jail current use of insulin -check hemoglobin A1c-6.5 -hold home dose empagliflozin -reducing home dose Lantus of 28 units BID for now and use Lantus 20 units BID 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, titrate insulin as needed -sliding scale insulin as needed Iron Deficiency anemia Thrombocytopenia (likely related to cirrhosis) -continue home dose supplementary iron supplements, monitor the CBC and platelets chronic kidney disease stage III -monitor the renal function --Creatinine remains stable GERD -continue pantoprazole Diaphragmatic hernia -chronic other cardiac pulmonary history as per records: -coronary artery disease, chronic ischemic heart disease, s/p angioplasty with stent, aortic valve stenosis, s/p TAVR, interstitial pulmonary disease, hypertension, right pulmonary nodule -continue home dose metoprolol tartrate 25 mg BID -nebulizers as needed PT/OT evaluations Daughter in law Osborn ([phone], ) reports that patient's Code Status is DNR/DNI via telephone with admiting physician Luan Rodriguez ([phone], ) Admission and Anticipated Discharge Date Admission Date: June 19, 2020 Subjective 06/20/2020 The patient was seen and examined in medical telemetry unit He was admitted with hepatic encephalopathy with known history of cirrhosis Remains generally weak and lethargic and encephalopathy seems to be improving Has had small amount of bowel movement and denies any other symptoms Review of Systems Review of Systems: All systems reviewed and are unremarkable except as noted below Gastrointestinal: Presence of hepatic flap Neurologic: + generalized weakness and + confusion (Pleasantly confused) Physical Exam Physical Exam: Lying in bed comfortably Constitutional: well developed, well nourished and + ill appearing; no acute distress Eyes: PERRL, conjunctivae normal, anicteric sclerae ENMT: external ear and nose normal, oropharynx normal Neck: trachea midline, no thyromegaly Respiratory: normal respiratory effort; no respiratory distress Auscultation: lungs clear to auscultation bilaterally Cardiovascular: Rate/Rhythm: regular rate and regular rhythm Heart Sounds: no murmur Gastrointestinal (Abdomen): Inspection/Auscultation: abdomen normal to inspection and normal bowel sounds; abdomen not distended Percussion/Palpation: abdomen soft; abdomen nontender and no ascites Musculoskeletal: No acute arthritis involving any joints Neurologic: moves all extremities; no focal motor deficits Alert and awake. Pleasantly confused. Presence of hepatic flap Psychiatric: Insight: + poor insight Lymphatic: no cervical or axillary lymphadenopathy Results & Data Results & Data ([facility]) Vital Signs (Past 12 Hours) Vital Signs Temp Pulse Pulse Resp BP Pulse Ox 06/20/20 11:02 36.7 C 56 L 16 123/64 95 06/20/20 07:46 36.8 C 57 L 20 116/70 95 06/20/20 07:00 58 L 06/20/20 03:26 36.8 C 60 16 128/61 95 Laboratory Results Short CBC 06/19/20 06/20/20 Range/Units 15:25 06:26 WBC 4.34 L 4.35 L (4.8-10.8) K/uL Hgb 14.0 13.5 L (14.0-18.0) g/dL Hct 40.8 L 39.0 L (42-52) % Plt Count 67 L 60 L (130-400) K/uL BMP 06/19/20 06/20/20 15:25 06:26 Sodium 141 148 H Potassium 4.2 3.6 Chloride 111 H 118 H Carbon Dioxide 23 25 BUN 15 11 Creatinine 1.18 0.89 Glucose 225 H 84 Calcium 9.0 8.7 Cardiac Enzymes 06/19/20 Range/Units 15:25 Troponin I < 0.015 (0-0.045) ng/ml Liver Function 06/19/20 06/20/20 Range/Units 15:25 06:26 Total Bilirubin 1.0 1.1 H (0.2-1) mg/dl Direct Bilirubin TNP AST 62 H 51 H (15-37) U/L ALT 32 28 (12-78) U/L Alkaline Phosphatase 286 H 237 H (45-117) U/L Albumin 2.9 L 2.6 L (3.4-5.0) gm/dl Medications Administered Current Inpatient Medications Dextrose (Dextrose 50% 50 Ml Syringe) 25 - 50 ml IV UD PRN; Protocol PRN Reason: Hypoglycemia Protocol Stop: 07/19/20 18:18 Escitalopram Oxalate (Escitalopram Oxalate 10 Mg Tab) 5 mg PO DAILY GOSIA Stop: 07/20/20 08:59 Last Admin: 06/20/20 10:53 Dose: 5 mg Documented by: Ferrous Gluconate (Ferrous Gluconate 324 Mg Tab) 324 mg PO BID GOSIA Stop: 07/19/20 20:59 Last Admin: 06/20/20 10:48 Dose: 324 mg Documented by: Folic Acid (Folic Acid 400 Mcg Tab) 400 mcg PO QAM GOSIA Stop: 07/19/20 18:14 Last Admin: 06/20/20 10:49 Dose: 400 mcg Documented by: Furosemide (Furosemide 20 Mg Tab) 20 mg PO DAILY GOSIA Stop: 07/20/20 08:59 Last Admin: 06/20/20 10:50 Dose: 20 mg Documented by: Glucagon (Glucagon For Inj 1 Mg Vial) 1 mg SQ UD PRN; Protocol PRN Reason: Hypoglycemia Protocol Stop: 07/19/20 18:18 Glucose (Glucose 10 Tabs/Tube) 4 - 8 tabs PO UD PRN; Protocol PRN Reason: Hypoglycemia Protocol Stop: 07/19/20 18:18 Glucose (Glucose 40% Gel 15 Gm Tube) 15 - 30 gm PO UD PRN; Protocol PRN Reason: Hypoglycemia Protocol Stop: 07/19/20 18:18 Thiamine HCl 100 mg/ Syringe 10 mls @ 2 mls/min IV QAM GOSIA Stop: 07/20/20 08:59 Last Admin: 06/20/20 10:52 Dose: 2 mls/min Documented by: Ceftriaxone Sodium 2,000 mg/ (Dextrose) 50 mls @ 100 mls/hr IV Q24H GOSIA; Protoc ol Stop: 06/22/20 18:29 Insulin Aspart (Insulin Aspart 100 Units/Ml 3 Ml Pen) 0 units SC ACHS GOSIA Stop: 07/19/20 20:59 Last Admin: 06/20/20 12:43 Dose: Not Given Documented by: Insulin Glargine (Insulin Glargine Solostar 100 Units/Ml 3 Ml Pen) 20 units SC BID GOSIA Stop: 07/19/20 20:59 Last Admin: 06/20/20 10:55 Dose: 20 units Documented by: Lactulose (Lactulose Syrup 20 Gm/30 Ml Udc) 40 gm PO TID GOSIA Stop: 07/19/20 20:59 Last Admin: 06/20/20 13:49 Dose: 40 gm Documented by: Metoprolol Tartrate (Metoprolol Tartrate 25 Mg Tab) 25 mg PO BID GOSIA Stop: 07/19/20 20:59 Last Admin: 06/20/20 11:02 Dose: Not Given Documented by: Miscellaneous (Carbohydrates For Hypoglycemia ) 15 - 30 gm PO UD PRN PRN Reason: Hypoglycemia Protocol Stop: 07/19/20 18:18 Nitroglycerin (Nitroglycerin Sl 0.4 Mg/Tab Tab) 0.4 mg SL UD PRN PRN Reason: Chest Pain Stop: 07/19/20 18:10 Pantoprazole Sodium (Pantoprazole 40 Mg Tab) 40 mg PO BID GOSIA Stop: 07/19/20 20:59 Last Admin: 06/20/20 10:49 Dose: 40 mg Documented by: Potassium Phosphate (Pot Phosphate Monobasic W/ Sod Tab) 1 tab PO QID GOSIA Stop: 07/19/20 20:59 Last Admin: 06/20/20 12:43 Dose: 1 tab Documented by: Rifaximin (Rifaximin 550 Mg Tablet) 550 mg PO BID GOSIA Stop: 07/19/20 20:59 Last Admin: 06/20/20 10:47 Dose: 550 mg Documented by: Tamsulosin HCl (Tamsulosin Hcl 0.4 Mg Cap) 0.4 mg PO DAILY [facility] Stop: 07/20/20 08:59 Last Admin: 06/20/20 10:57 Dose: 0.4 mg Documented by:
[2020-06-20] MEDS ORDERED: cefTRIAXone SODIUM 2,000 MG in DEXTROSE 5% 50 ML IV SCH (18:30)
--- NOTE | 2020-06-20 21:59 | Electrocardiogram Report ---
Test Reason : Blood Pressure : / mmHG Vent. 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
[2020-06-21 06:57] LABS: Hematocrit (blood only) 38.9 % (42-52); Hemoglobin 13.2 g/dL (14.0-18.0); Mean Corpuscular Hemoglobin 32.7 pg (25-34); Mean Corpuscular Hgb Conc 33.9 g/dL (32-36); Mean Corpuscular Volume 96.3 fL (80-100); RDW Coefficient of Variation 17.1 % (11.5-14.5); RDW Standard Deviation 60.3 fL (36.4-46.3); Red Blood Count 4.04 M/uL (4.7-6.1); White Blood Count 4.32 K/uL (4.8-10.8)
[2020-06-21 07:01] LABS: Mean Platelet Volume 10.6 fL (7.4-10.4); Platelet Count 56 K/uL (130-400)
[2020-06-21 07:20] LABS: Basophils # (auto) 0.02 K/uL (0-0.2); Basophils % (auto) 0.5 %; Eosinophils # (auto) 0.34 K/uL (0-0.5); Eosinophils % (auto) 7.9 %; Lymphocytes # (auto) 0.78 K/uL (1.2-3.4); Lymphocytes % (auto) 18.1 %; Monocytes # (auto) 0.58 K/uL (0.11-0.59); Monocytes % (auto) 13.4 %; Neutrophils % (auto) 60.1 %
[2020-06-21 07:27] LABS: Albumin Level 2.4 gm/dl (3.4-5.0); BUN Creatinine Ratio 10.2 (10-20); Calcium 8.5 mg/dl (8.5-10.1); Creatinine Clr Calc Pharmacy 50.2 ml/min; Est GFR (African American) 81.4; Est GFR (Non-African American) 70.3; Magnesium 2.2 mg/dl (1.8-2.4); Potassium 3.2 mmol/L (3.5-5.1)
[2020-06-21 07:37] LABS: Albumin Globulin Ratio 0.8 (0.9-2); Bilirubin,Total 0.9 mg/dl (0.2-1); Phosphorus 4.2 mg/dl (2.5-4.9); Total Protein 5.4 gm/dl (6.4-8.2)
[2020-06-21] MEDS: LACTULOSE SYRUP 20 GM/30 ML UDC PO SCH ×3 (07:58→20:37)
[2020-06-21] MEDS: THIAMINE HCL 100 MG in SYRINGE 9 ML IV SCH (07:58)
[2020-06-21] MEDS: TAMSULOSIN HCL 0.4 MG CAP PO SCH (07:59)
[2020-06-21] MEDS: FOLIC ACID 400 MCG TAB PO SCH (07:59)
[2020-06-21] MEDS: ESCITALOPRAM OXALATE 10 MG TAB PO SCH (07:59)
[2020-06-21] MEDS: FUROSEMIDE 20 MG TAB PO SCH (07:59)
[2020-06-21] MEDS: RIFAXIMIN 550 MG TABLET PO SCH ×2 (07:59→20:41)
[2020-06-21] MEDS: PANTOprazole 40 MG TAB PO SCH ×2 (08:00→20:41)
[2020-06-21] MEDS: POT PHOSPHATE MONOBASIC W/ SOD TAB PO SCH ×4 (08:00→20:41)
[2020-06-21] MEDS: FERROUS GLUCONATE 324 MG TAB PO SCH ×2 (08:01→20:37)
[2020-06-21] MEDS: METOPROLOL TARTRATE 25 MG TAB PO SCH ×2 (08:01→20:39)
[2020-06-21] MEDS: INSULIN GLARGINE SOLOSTAR 100 UNITS/ML 3 ML PEN SC SCH ×2 (08:02→20:38)
[2020-06-21] MEDS: INSULIN ASPART 100 UNITS/ML 3 ML PEN SC SCH ×4 (08:03→20:40)
[2020-06-21] MEDS ORDERED: POTASSIUM CHLORIDE 20 MEQ TABCR PO STA (08:26)
[2020-06-21 10:45] LABS: Appearance Urine Clear (Clear); Bilirubin Urine Negative (Negative); Blood Urine Negative (Negative); Color Urine Yellow; Glucose Urine UA 3+ (Negative); Ketones Urine Negative (Negative); Leukocyte Esterase Urine Negative (Negative); Nitrite Urine Negative (Negative); Protein Urine Negative (Negative); Specific Gravity Urine 1.036 (1.000-1.030); Urobilinogen Urine Negative (Negative)
--- NOTE | 2020-06-21 14:05 | Hospitalist Progress Note ---
Date of Service June 21, 2020 Assessment & Plan (1) Hepatic encephalopathy: He comes from [facility] at 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 ordered IV phosphorous in the ED and oral phosphorous -serum magnesium is 2.7 and serum potassium at goal so will hold off scheduled home dose magnesium and potassium supplements for now -give banana bag, daily folic acid, daily thiamine -shaker flatwork consult -Hospital level has been normalized Type 2 Diabetes Mellitus with intermediate manager current use of insulin -check hemoglobin A1c-6.5 -hold home dose empagliflozin -reducing home dose Lantus of 28 units BID for now and use Lantus 20 units BID 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, titrate insulin as needed -sliding scale insulin as needed Iron Deficiency anemia Thrombocytopenia (likely related to cirrhosis) -continue home dose supplementary iron supplements, monitor the CBC and platelets chronic kidney disease stage III -monitor the renal function --Creatinine remains stable GERD -continue pantoprazole Diaphragmatic hernia -chronic other cardiac pulmonary history as per records: -coronary artery disease, chronic ischemic heart disease, s/p angioplasty with stent, aortic valve stenosis, s/p TAVR, interstitial pulmonary disease, hypertension, right pulmonary nodule -continue home dose metoprolol tartrate 25 mg BID -nebulizers as needed PT/OT evaluations Daughter in law Irena ([phone], ) reports that patient's Code Status is DNR/DNI via telephone with admiting physician Luan Rodriguez ([phone], ) Remains stable and seems to be improving Admission and Anticipated Discharge Date Admission Date: June 19, 2020 Subjective 06/20/2020 The patient was seen and examined in medical telemetry unit He was admitted with hepatic encephalopathy with known history of cirrhosis Remains generally weak and lethargic and encephalopathy seems to be improving Has had small amount of bowel movement and denies any other symptoms 06/21/2020 The patient was seen and examined in medical telemetry unit He has been feeling a lot better today Remains generally weak and lethargic but no more confusion His bowel has not moved today Review of Systems Review of Systems: All systems reviewed and are unremarkable except as noted below Gastrointestinal: Presence of hepatic flap Neurologic: + generalized weakness and + confusion (Pleasantly confused) Physical Exam Physical Exam: Lying in bed comfortably Constitutional: well developed, well nourished and + ill appearing; no acute distress Eyes: PERRL, conjunctivae normal, anicteric sclerae ENMT: external ear and nose normal, oropharynx normal Neck: trachea midline, no thyromegaly Respiratory: normal respiratory effort; no respiratory distress Auscultation: lungs clear to auscultation bilaterally Cardiovascular: Rate/Rhythm: regular rate and regular rhythm Heart Sounds: no murmur Extremities: + edema (1+ bilateral leg edema) Gastrointestinal (Abdomen): Inspection/Auscultation: abdomen normal to inspection and normal bowel sounds; abdomen not distended Percussion/Palpation: abdomen soft; abdomen nontender and no ascites Musculoskeletal: Acute arthritis involving any joints Neurologic: moves all extremities; no focal motor deficits No more confusion still has hepatic flap Psychiatric: Insight: + poor insight Lymphatic: no cervical or axillary lymphadenopathy Results & Data Results & Data ([facility]) Vital Signs (Past 12 Hours) Vital Signs Temp Pulse Resp BP BP Pulse Ox 06/21/20 11:31 36.9 C 54 L 16 112/62 95 06/21/20 07:31 36.7 C 95 H 16 123/62 93 06/21/20 03:20 36.6 C 59 L 18 122/68 95 Laboratory Results Short CBC 06/21/20 Range/Units 06:43 WBC 4.32 L (4.8-10.8) K/uL Hgb 13.2 L (14.0-18.0) g/dL Hct 38.9 L (42-52) % Plt Count 56 L (130-400) K/uL BMP 06/21/20 06:43 Sodium 146 H Potassium 3.2 L Chloride 114 H Carbon Dioxide 27 BUN 10 Creatinine 1.00 Glucose 113 H Calcium 8.5 Liver Function 06/21/20 Range/Units 06:43 Total Bilirubin 0.9 (0.2-1) mg/dl AST 47 H (15-37) U/L ALT 27 (12-78) U/L Alkaline Phosphatase 187 H (45-117) U/L Albumin 2.4 L (3.4-5.0) gm/dl Urine 06/21/20 Range/Units 10:20 Urine Color Yellow Urine Appearance Clear (Clear) Urine pH 5.0 (4.5-7.5) Ur Specific [place] 1.036 H (1.000-1.030) Urine Protein Negative (Negative) Urine Glucose (UA) 3+ H (Negative) Medications Administered Current Inpatient Medications Dextrose (Dextrose 50% 50 Ml Syringe) 25 - 50 ml IV UD PRN; Protocol PRN Reason: Hypoglycemia Protocol Stop: 07/19/20 18:18 Escitalopram Oxalate (Escitalopram Oxalate 10 Mg Tab) 5 mg PO DAILY [facility] Stop: 07/20/20 08:59 Last Admin: 06/21/20 07:59 Dose: 5 mg Documented by: Ferrous Gluconate (Ferrous Gluconate 324 Mg Tab) 324 mg PO BID [facility] Stop: 07/19/20 20:59 Last Admin: 06/21/20 08:01 Dose: 324 mg Documented by: Folic Acid (Folic Acid 400 Mcg Tab) 400 mcg PO QAM [facility] Stop: 07/19/20 18:14 Last Admin: 06/21/20 07:59 Dose: 400 mcg Documented by: Furosemide (Furosemide 20 Mg Tab) 20 mg PO DAILY [facility] Stop: 07/20/20 08:59 Last Admin: 06/21/20 07:59 Dose: 20 mg Documented by: Glucagon (Glucagon For Inj 1 Mg Vial) 1 mg SQ UD PRN; Protocol PRN Reason: Hypoglycemia Protocol Stop: 07/19/20 18:18 Glucose (Glucose 10 Tabs/Tube) 4 - 8 tabs PO UD PRN; Protocol PRN Reason: Hypoglycemia Protocol Stop: 07/19/20 18:18 Glucose (Glucose 40% Gel 15 Gm Tube) 15 - 30 gm PO UD PRN; Protocol PRN Reason: Hypoglycemia Protocol Stop: 07/19/20 18:18 Thiamine HCl 100 mg/ Syringe 10 mls @ 2 mls/min IV QAM [facility] Stop: 07/20/20 08:59 Last Admin: 06/21/20 07:58 Dose: 2 mls/min Documented by: Ceftriaxone Sodium 2,000 mg/ (Dextrose) 50 mls @ 100 mls/hr IV Q24H [facility]; Protocol Stop: 06/22/20 18:29 Last Infusion: 06/20/20 20:00 Dose: Infused Documented by: Insulin Aspart (Insulin Aspart 100 Units/Ml 3 Ml Pen) 0 units SC ACHS [facility] Stop: 07/19/20 20:59 Last Admin: 06/21/20 12:14 Dose: 2 units Documented by: Insulin Glargine (Insulin Glargine Solostar 100 Units/Ml 3 Ml Pen) 20 units SC BID [facility] Stop: 07/19/20 20:59 Last Admin: 06/21/20 08:02 Dose: 20 units Documented by: Lactulose (Lactulose Syrup 20 Gm/30 Ml Udc) 40 gm PO TID [facility] Stop: 07/19/20 20:59 Last Admin: 06/21/20 13:09 Dose: 40 gm Documented by: Metoprolol Tartrate (Metoprolol Tartrate 25 Mg Tab) 25 mg PO BID [facility] Stop: 07/19/20 20:59 Last Admin: 06/21/20 08:01 Dose: 25 mg Documented by: Miscellaneous (Carbohydrates For Hypoglycemia ) 15 - 30 gm PO UD PRN PRN Reason: Hypoglycemia Protocol Stop: 07/19/20 18:18 Nitroglycerin (Nitroglycerin Sl 0.4 Mg/Tab Tab) 0.4 mg SL UD PRN PRN Reason: Chest Pain Stop: 07/19/20 18:10 Pantoprazole Sodium (Pantoprazole 40 Mg Tab) 40 mg PO BID [facility] Stop: 07/19/20 20:59 Last Admin: 06/21/20 08:00 Dose: 40 mg Documented by: Potassium Phosphate (Pot Phosphate Monobasic W/ Sod Tab) 1 tab PO QID [facility] Stop: 07/19/20 20:59 Last Admin: 06/21/20 12:14 Dose: 1 tab Documented by: Rifaximin (Rifaximin 550 Mg Tablet) 550 mg PO BID [facility] Stop: 07/19/20 20:59 Last Admin: 06/21/20 07:59 Dose: 550 mg Documented by: Tamsulosin HCl (Tamsulosin Hcl 0.4 Mg Cap) 0.4 mg PO DAILY [facility] Stop: 07/20/20 08:59 Last Admin: 06/21/20 07:59 Dose: 0.4 mg Documented by:
[2020-06-22 06:46] LABS: Hematocrit (blood only) 38.6 % (42-52); Hemoglobin 13.2 g/dL (14.0-18.0); Mean Corpuscular Hemoglobin 32.8 pg (25-34); Mean Corpuscular Hgb Conc 34.2 g/dL (32-36); RDW Coefficient of Variation 16.9 % (11.5-14.5); RDW Standard Deviation 59.6 fL (36.4-46.3); Red Blood Count 4.02 M/uL (4.7-6.1); White Blood Count 4.73 K/uL (4.8-10.8)
[2020-06-22 06:47] LABS: Mean Platelet Volume 10.2 fL (7.4-10.4); Platelet Count 49 K/uL (130-400)
[2020-06-22 07:09] LABS: Basophils # (auto) 0.02 K/uL (0-0.2); Basophils % (auto) 0.4 %; Eosinophils # (auto) 0.38 K/uL (0-0.5); Lymphocytes # (auto) 0.75 K/uL (1.2-3.4); Lymphocytes % (auto) 15.9 %; Monocytes # (auto) 0.58 K/uL (0.11-0.59); Monocytes % (auto) 12.3 %; Neutrophils % (auto) 63.4 %
[2020-06-22 07:25] LABS: BUN Creatinine Ratio 10.5 (10-20); Calcium 8.3 mg/dl (8.5-10.1); Creatinine Clr Calc Pharmacy 55.2 ml/min; Est GFR (African American) 90.1; Est GFR (Non-African American) 77.7; Potassium 3.4 mmol/L (3.5-5.1)
[2020-06-22] MEDS: TAMSULOSIN HCL 0.4 MG CAP PO SCH (07:54)
[2020-06-22] MEDS: THIAMINE HCL 100 MG in SYRINGE 9 ML IV SCH (07:54)
[2020-06-22] MEDS: FOLIC ACID 400 MCG TAB PO SCH (07:56)
[2020-06-22] MEDS: METOPROLOL TARTRATE 25 MG TAB PO SCH ×3 (07:57→21:05)
[2020-06-22] MEDS: FUROSEMIDE 20 MG TAB PO SCH (07:57)
[2020-06-22] MEDS: PANTOprazole 40 MG TAB PO SCH ×2 (07:58→21:07)
[2020-06-22] MEDS: ESCITALOPRAM OXALATE 10 MG TAB PO SCH (07:58)
[2020-06-22] MEDS: INSULIN GLARGINE SOLOSTAR 100 UNITS/ML 3 ML PEN SC SCH ×2 (07:59→21:05)
[2020-06-22] MEDS: POT PHOSPHATE MONOBASIC W/ SOD TAB PO SCH ×4 (07:59→21:07)
[2020-06-22] MEDS: INSULIN ASPART 100 UNITS/ML 3 ML PEN SC SCH ×4 (08:00→21:06)
[2020-06-22] MEDS: LACTULOSE SYRUP 20 GM/30 ML UDC PO SCH ×4 (08:00→21:04)
[2020-06-22] MEDS: FERROUS GLUCONATE 324 MG TAB PO SCH ×2 (08:01→21:05)
[2020-06-22] MEDS: RIFAXIMIN 550 MG TABLET PO SCH ×2 (08:02→21:08)
[2020-06-22] MEDS ORDERED: POTASSIUM CHLORIDE 20 MEQ TABCR PO STA (08:54)
[2020-06-22] MEDS ORDERED: LACTULOSE SYRUP 10 GM/15 ML BTL 960 ML PO SCH (13:00)
--- NOTE | 2020-06-22 13:00 | Hospitalist Progress Note ---
Date of Service June 22, 2020 Assessment & Plan (1) Hepatic encephalopathy: He comes from [facility], for worsening confusion Noted to have pleasantly confused with presence of hepatic flap Has not been moving his bowel regularly Clinically much better this morning Clinically no source of infection found out and ultrasound of the abdomen did not show any ascites Appreciate GI input and recommendation Lactulose restarted and Xifaxan continued Confusion seems to be improved Bowel has not been moving We will try lactulose enema and increase lactulose to 4 times daily No evidence of infection Ultrasound did not show any ascites Will discontinue ceftriaxone Hyperammonemia 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 ordered IV phosphorous in the ED and oral phosphorous -serum magnesium is 2.7 and serum potassium at goal so will hold off scheduled home dose magnesium and potassium supplements for now -give banana bag, daily folic acid, daily thiamine -supervisor drying and winding consult -Hospital level has been normalized -Monitor electrolytes Type 2 Diabetes Mellitus with rn licensed practical current use of insulin -check hemoglobin A1c-6.5 -hold home dose empagliflozin -reducing home dose Lantus of 28 units BID for now and use Lantus 20 units BID 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, titrate insulin as needed -sliding scale insulin as needed Iron Deficiency anemia Thrombocytopenia (likely related to cirrhosis) -continue home dose supplementary iron supplements, monitor the CBC and platelets chronic kidney disease stage III -monitor the renal function --Creatinine remains stable --Monitor PRP GERD -continue pantoprazole Diaphragmatic hernia -chronic other cardiac pulmonary history as per records: -coronary artery disease, chronic ischemic heart disease, s/p angioplasty with stent, aortic valve stenosis, s/p TAVR, interstitial pulmonary disease, hypertension, right pulmonary nodule -continue home dose metoprolol tartrate 25 mg BID -nebulizers as needed PT/OT evaluations Daughter in law Irena ([phone], ) reports that patient's Code Status is DNR/DNI via telephone with admiting physician Luan Rodriguez ([phone], ) Remains stable and seems to be improving Admission and Anticipated Discharge Date Admission Date: June 19, 2020 Subjective 06/20/2020 The patient was seen and examined in medical telemetry unit He was admitted with hepatic encephalopathy with known history of cirrhosis Remains generally weak and lethargic and encephalopathy seems to be improving Has had small amount of bowel movement and denies any other symptoms 06/21/2020 The patient was seen and examined in medical telemetry unit He has been feeling a lot better today Remains generally weak and lethargic but no more confusion His bowel has not moved today 06/22/2020 The patient was seen and examined in medical telemetry unit His bowel has not been moving even with lactulose 40 g 3 times daily Remains stable and generally weak and lethargic Review of Systems Review of Systems: All systems reviewed and are unremarkable except as noted below Gastrointestinal: Presence of hepatic flap Neurologic: + generalized weakness and + confusion (Pleasantly confused) Physical Exam Physical Exam: Lying in bed comfortably Constitutional: well developed, well nourished and + ill appearing; no acute distress Eyes: PERRL, conjunctivae normal, anicteric sclerae ENMT: external ear and nose normal, oropharynx normal Neck: trachea midline, no thyromegaly Respiratory: normal respiratory effort; no respiratory distress Auscultation: lungs clear to auscultation bilaterally Cardiovascular: Rate/Rhythm: regular rate and regular rhythm Heart Sounds: no murmur Extremities: + edema (1+ bilateral leg edema) Gastrointestinal (Abdomen): Inspection/Auscultation: abdomen normal to inspection, + abdomen distended (Minimally distended) and normal bowel sounds Percussion/Palpation: abdomen soft; abdomen nontender and no ascites Musculoskeletal: No acute arthritis in any joints Neurologic: moves all extremities; no focal motor deficits Motor/Sensory: + tremor (Still has hepatic flap) Pleasantly confused Psychiatric: Insight: + poor insight Lymphatic: no cervical or axillary lymphadenopathy Results & Data Results & Data ([facility]) Vital Signs (Past 12 Hours) Vital Signs Temp Pulse Resp BP BP Pulse Ox 06/22/20 11:24 36.9 C 92 H 16 113/66 96 06/22/20 06:25 36.9 C 56 L 18 109/60 93 06/22/20 03:00 36.7 C 58 L 18 94/56 L 92 Laboratory Results Short CBC 06/22/20 Range/Units 06:36 WBC 4.73 L (4.8-10.8) K/uL Hgb 13.2 L (14.0-18.0) g/dL Hct 38.6 L (42-52) % Plt Count 49 L (130-400) K/uL BMP 06/22/20 06:36 Sodium 141 Potassium 3.4 L Chloride 109 H Carbon Dioxide 29 BUN 10 Creatinine 0.92 Glucose 102 H Calcium 8.3 L Medications Administered Current Inpatient Medications Lactulose 200 gm/ Sterile Water 700 ml/ BARCODE IDENTIFIER 1 ea 0 gm MT ONE ONE Stop: 06/22/20 13:03 Dextrose (Dextrose 50% 50 Ml Syringe) 25 - 50 ml IV UD PRN; Protocol PRN Reason: Hypoglycemia Protocol Stop: 07/19/20 18:18 Escitalopram Oxalate (Escitalopram Oxalate 10 Mg Tab) 5 mg PO DAILY [facility] Stop: 07/20/20 08:59 Last Admin: 06/22/20 07:58 Dose: 5 mg Documented by: Ferrous Gluconate (Ferrous Gluconate 324 Mg Tab) 324 mg PO BID [facility] Stop: 07/19/20 20:59 Last Admin: 06/22/20 08:01 Dose: 324 mg Documented by: Folic Acid (Folic Acid 400 Mcg Tab) 400 mcg PO QAM [facility] Stop: 07/19/20 18:14 Last Admin: 06/22/20 07:56 Dose: 400 mcg Documented by: Furosemide (Furosemide 20 Mg Tab) 20 mg PO DAILY [facility] Stop: 07/20/20 08:59 Last Admin: 06/22/20 07:57 Dose: 20 mg Documented by: Glucagon (Glucagon For Inj 1 Mg Vial) 1 mg SQ UD PRN; Protocol PRN Reason: Hypoglycemia Protocol Stop: 07/19/20 18:18 Glucose (Glucose 10 Tabs/Tube) 4 - 8 tabs PO UD PRN; Protocol PRN Reason: Hypoglycemia Protocol Stop: 07/19/20 18:18 Glucose (Glucose 40% Gel 15 Gm Tube) 15 - 30 gm PO UD PRN; Protocol PRN Reason: Hypoglycemia Protocol Stop: 07/19/20 18:18 Thiamine HCl 100 mg/ Syringe 10 mls @ 2 mls/min IV QAM [facility] Stop: 07/20/20 08:59 Last Admin: 06/22/20 07:54 Dose: 2 mls/min Documented by: Insulin Aspart (Insulin Aspart 100 Units/Ml 3 Ml Pen) 0 units SC ACHS [facility] Stop: 10/31/20 20:59 Last Admin: 06/22/20 12:12 Dose: 5 units Documented by: Insulin Glargine (Insulin Glargine Solostar 100 Units/Ml 3 Ml Pen) 20 units SC BID [facility] Stop: 07/19/20 20:59 Last Admin: 06/22/20 07:59 Dose: 20 units Documented by: Lactulose (Lactulose Syrup 20 Gm/30 Ml Udc) 40 gm PO QID [facility] Stop: 07/22/20 12:59 Metoprolol Tartrate (Metoprolol Tartrate 25 Mg Tab) 25 mg PO BID [facility] Stop: 07/19/20 20:59 Last Admin: 06/22/20 07:59 Dose: Not Given Documented by: Miscellaneous (Carbohydrates For Hypoglycemia ) 15 - 30 gm PO UD PRN PRN Reason: Hypoglycemia Protocol Stop: 07/19/20 18:18 Nitroglycerin (Nitroglycerin Sl 0.4 Mg/Tab Tab) 0.4 mg SL UD PRN PRN Reason: Chest Pain Stop: 07/19/20 18:10 Pantoprazole Sodium (Pantoprazole 40 Mg Tab) 40 mg PO BID [facility] Stop: 07/19/20 20:59 Last Admin: 06/22/20 07:58 Dose: 40 mg Documented by: Potassium Phosphate (Pot Phosphate Monobasic W/ Sod Tab) 1 tab PO QID [facility] Stop: 07/19/20 20:59 Last Admin: 06/22/20 12:12 Dose: 1 tab Documented by: Rifaximin (Rifaximin 550 Mg Tablet) 550 mg PO BID [facility] Stop: 07/19/20 20:59 Last Admin: 06/22/20 08:02 Dose: 550 mg Documented by: Tamsulosin HCl (Tamsulosin Hcl 0.4 Mg Cap) 0.4 mg PO DAILY [facility] Stop: 07/20/20 08:59 Last Admin: 06/22/20 07:54 Dose: 0.4 mg Documented by:
[2020-06-22] MEDS ORDERED: LACTULOSE 200 GM, WATER, STERILE IRRIG 700 ML, BARCODE IDENTIFIER 1 EA PR ONE (13:30)
[2020-06-23 05:41] LABS: Hematocrit (blood only) 38.9 % (42-52); Hemoglobin 13.2 g/dL (14.0-18.0); Mean Corpuscular Hemoglobin 32.1 pg (25-34); Mean Corpuscular Hgb Conc 33.9 g/dL (32-36); Mean Corpuscular Volume 94.6 fL (80-100); RDW Coefficient of Variation 16.5 % (11.5-14.5); RDW Standard Deviation 56.9 fL (36.4-46.3); Red Blood Count 4.11 M/uL (4.7-6.1); White Blood Count 3.88 K/uL (4.8-10.8)
[2020-06-23 05:45] LABS: Mean Platelet Volume 11.9 fL (7.4-10.4); Platelet Count 52 K/uL (130-400)
[2020-06-23 06:04] LABS: Basophils # (auto) 0.03 K/uL (0-0.2); Basophils % (auto) 0.8 %; Eosinophils # (auto) 0.22 K/uL (0-0.5); Eosinophils % (auto) 5.7 %; Immature Granulocytes # (auto) 0.01 K/uL (0.00-0.02); Immature Granulocytes % (auto) 0.3 %; Monocytes # (auto) 0.46 K/uL (0.11-0.59); Monocytes % (auto) 11.9 %; Neutrophils # (auto) 2.46 K/uL (1.4-6.5); Neutrophils % (auto) 63.3 %; RBC Morphology Unremarkable
[2020-06-23 06:07] LABS: Albumin Level 2.5 gm/dl (3.4-5.0); BUN Creatinine Ratio 9.6 (10-20); Calcium 8.5 mg/dl (8.5-10.1); Creatinine Clr Calc Pharmacy 55.8 ml/min; Est GFR (African American) 91.3; Est GFR (Non-African American) 78.8; Potassium 3.6 mmol/L (3.5-5.1)
[2020-06-23 06:15] LABS: Albumin Globulin Ratio 0.9 (0.9-2); Bilirubin,Total 1.1 mg/dl (0.2-1); Globulin 2.8 gm/dl (2.5-4.0); Total Protein 5.3 gm/dl (6.4-8.2)
[2020-06-23] MEDS: POT PHOSPHATE MONOBASIC W/ SOD TAB PO SCH ×4 (08:31→20:40)
[2020-06-23] MEDS: TAMSULOSIN HCL 0.4 MG CAP PO SCH (08:31)
[2020-06-23] MEDS: THIAMINE HCL 100 MG in SYRINGE 9 ML IV SCH (08:31)
[2020-06-23] MEDS: PANTOprazole 40 MG TAB PO SCH ×2 (08:31→20:40)
[2020-06-23] MEDS: RIFAXIMIN 550 MG TABLET PO SCH ×2 (08:32→20:41)
[2020-06-23] MEDS: ESCITALOPRAM OXALATE 10 MG TAB PO SCH (08:33)
[2020-06-23] MEDS: FOLIC ACID 400 MCG TAB PO SCH (08:33)
[2020-06-23] MEDS: FERROUS GLUCONATE 324 MG TAB PO SCH ×2 (08:33→20:35)
[2020-06-23] MEDS: FUROSEMIDE 20 MG TAB PO SCH (08:33)
[2020-06-23] MEDS: METOPROLOL TARTRATE 25 MG TAB PO SCH ×2 (08:33→20:37)
[2020-06-23] MEDS: INSULIN GLARGINE SOLOSTAR 100 UNITS/ML 3 ML PEN SC SCH ×2 (08:34→20:35)
[2020-06-23] MEDS: LACTULOSE SYRUP 20 GM/30 ML UDC PO SCH ×2 (08:35→12:42)
[2020-06-23] MEDS: INSULIN ASPART 100 UNITS/ML 3 ML PEN SC SCH ×4 (08:35→20:39)
--- NOTE | 2020-06-23 11:10 | Hospitalist Progress Note ---
Date of Service June 23, 2020 Assessment & Plan (1) Hepatic encephalopathy: He comes from [facility] at [facility] living [facility], for worsening confusion Noted to have pleasantly confused with presence of hepatic flap Has not been moving his bowel regularly Clinically much better this morning Clinically no source of infection found out and ultrasound of the abdomen did not show any ascites Appreciate GI input and recommendation Lactulose restarted and Xifaxan continued Confusion seems to be improved Bowel has not been moving We will try lactulose enema and increase lactulose to 4 times daily Bowel has been moving regularly Denies any more confusion Get PT and OT evaluation before discharge No evidence of infection Ultrasound did not show any ascites Will discontinue ceftriaxone Hyperammonemia 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 ordered IV phosphorous in the ED and oral phosphorous -serum magnesium is 2.7 and serum potassium at goal so will hold off scheduled home dose magnesium and potassium supplements for now -give banana bag, daily folic acid, daily thiamine -lifeguard consult -Phosphate level has been normalized Type 2 Diabetes Mellitus with shelter current use of insulin -check hemoglobin A1c-6.5 -hold home dose empagliflozin -reducing home dose Lantus of 28 units BID for now and use Lantus 20 units BID 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, titrate insulin as needed -sliding scale insulin as needed Iron Deficiency anemia Thrombocytopenia (likely related to cirrhosis) -continue home dose supplementary iron supplements, monitor the CBC and plate lets chronic kidney disease stage III -monitor the renal function --Creatinine remains stable --Monitor PRP GERD -continue pantoprazole Diaphragmatic hernia -chronic other cardiac pulmonary history as per records: -coronary artery disease, chronic ischemic heart disease, s/p angioplasty with stent, aortic valve stenosis, s/p TAVR, interstitial pulmonary disease, hypertension, right pulmonary nodule -continue home dose metoprolol tartrate 25 mg BID -nebulizers as needed PT/OT evaluations Daughter in law Osborn ([phone], ) reports that patient's Code Status is DNR/DNI via telephone with admiting physician Luan Rodriguez ([phone], ) We will get PT and OT evaluation before discharge Admission and Anticipated Discharge Date Admission Date: June 19, 2020 Subjective 06/20/2020 The patient was seen and examined in medical telemetry unit He was admitted with hepatic encephalopathy with known history of cirrhosis Remains generally weak and lethargic and encephalopathy seems to be improving Has had small amount of bowel movement and denies any other symptoms 06/21/2020 The patient was seen and examined in medical telemetry unit He has been feeling a lot better today Remains generally weak and lethargic but no more confusion His bowel has not moved today 06/22/2020 The patient was seen and examined in medical telemetry unit His bowel has not been moving even with lactulose 40 g 3 times daily Remains stable and generally weak and lethargic 06/23/2020 The patient was seen and examined in medical telemetry unit He has been feeling a lot better and has been moving his bowels regularly Remains weak but confusion seems to be improved Review of Systems Review of Systems: All systems reviewed and are unremarkable except as noted below Gastrointestinal: Presence of hepatic flap Neurologic: + generalized weakness and + confusion (Pleasantly confused) Physical Exam Physical Exam: Lying in bed comfortably Constitutional: well developed, well nourished and + ill appearing; no acute distress Eyes: PERRL, conjunctivae normal, anicteric sclerae ENMT: external ear and nose normal, oropharynx normal Neck: trachea midline, no thyromegaly Respiratory: normal respiratory effort; no respiratory distress Auscult ation: lungs clear to auscultation bilaterally Cardiovascular: Rate/Rhythm: regular rate and regular rhythm Heart Sounds: no murmur Extremities: + edema (1+ bilateral leg edema) Gastrointestinal (Abdomen): Inspection/Auscultation: abdomen normal to inspection and normal bowel sounds Percussion/Palpation: abdomen soft; abdomen nontender and no ascites Musculoskeletal: No acute arthritis in any joint Neurologic: moves all extremities; no focal motor deficits Motor/Sensory: + tremor (Still has hepatic flap) Psychiatric: Insight: + poor insight Lymphatic: no cervical or axillary lymphadenopathy Results & Data Results & Data ([facility]) Vital Signs (Past 12 Hours) Vital Signs Temp Pulse Pulse Resp BP Pulse Ox 06/23/20 07:19 36.8 C 66 62 17 114/57 L 96 06/23/20 03:00 37.3 C 67 16 108/57 L 94 06/23/20 00:24 67 06/22/20 23:23 37.0 C 65 16 114/60 95 Laboratory Results Short CBC 06/23/20 Range/Units 05:29 WBC 3.88 L (4.8-10.8) K/uL Hgb 13.2 L (14.0-18.0) g/dL Hct 38.9 L (42-52) % Plt Count 52 L (130-400) K/uL BMP 06/23/20 05:29 Sodium 142 Potassium 3.6 Chloride 110 H Carbon Dioxide 27 BUN 9 Creatinine 0.91 Glucose 152 H Calcium 8.5 Liver Function 06/23/20 Range/Units 05:29 Total Bilirubin 1.1 H (0.2-1) mg/dl AST 57 H (15-37) U/L ALT 31 (12-78) U/L Alkaline Phosphatase 229 H (45-117) U/L Albumin 2.5 L (3.4-5.0) gm/dl Medications Administered Current Inpatient Medications Dextrose (Dextrose 50% 50 Ml Syringe) 25 - 50 ml IV UD PRN; Protocol PRN Reason: Hypoglycemia Protocol Stop: 07/19/20 18:18 Escitalopram Oxalate (Escitalopram Oxalate 10 Mg Tab) 5 mg PO DAILY [facility] Stop: 07/20/20 08:59 Last Admin: 06/23/20 08:33 Dose: 5 mg Documented by: Ferrous Gluconate (Ferrous Gluconate 324 Mg Tab) 324 mg PO BID [facility] Stop: 07/19/20 20:59 Last Admin: 06/23/20 08:33 Dose: 324 mg Documented by: Folic Acid (Folic Acid 400 Mcg Tab) 400 mcg PO QAM [facility] Stop: 07/19/20 18:14 Last Admin: 06/23/20 08:33 Dose: 400 mcg Documented by: Furosemide (Furosemide 20 Mg Tab) 20 mg PO DAILY GOS[facility] Stop: 07/20/20 08:59 Last Admin: 06/23/20 08:33 Dose: 20 mg Documented by: Glucagon (Glucagon For Inj 1 Mg Vial) 1 mg SQ UD PRN; Protocol PRN Reason: Hypoglycemia Protocol Stop: 07/19/20 18:18 Glucose (Glucose 10 Tabs/Tube) 4 - 8 tabs PO UD PRN; Protocol PRN Reason: Hypoglycemia Protocol Stop: 07/19/20 18:18 Glucose (Glucose 40% Gel 15 Gm Tube) 15 - 30 gm PO UD PRN; Protocol PRN Reason: Hypoglycemia Protocol Stop: 07/19/20 18:18 Thiamine HCl 100 mg/ Syringe 10 mls @ 2 mls/min IV QAM [facility] Stop: 07/20/20 08:59 Last Admin: 06/23/20 08:31 Dose: 2 mls/min Documented by: Insulin Aspart (Insulin Aspart 100 Units/Ml 3 Ml Pen) 0 units SC ACHS [facility] Stop: 07/19/20 20:59 Last Admin: 06/23/20 08:35 Dose: Not Given Documented by: Insulin Glargine (Insulin Glargine Solostar 100 Units/Ml 3 Ml Pen) 20 units SC BID [facility] Stop: 07/19/20 20:59 Last Admin: 06/23/20 08:34 Dose: 20 units Documented by: Lactulose (Lactulose Syrup 20 Gm/30 Ml Udc) 40 gm PO QID [facility]OS[facility] Stop: 07/22/20 13:29 Last Admin: 06/23/20 08:35 Dose: 40 gm Documented by: Metoprolol Tartrate (Metoprolol Tartrate 25 Mg Tab) 25 mg PO BID [facility] Stop: 07/19/20 20:59 Last Admin: 06/23/20 08:33 Dose: 25 mg Documented by: Miscellaneous (Carbohydrates For Hypoglycemia ) 15 - 30 gm PO UD PRN PRN Reason: Hypoglycemia Protocol Stop: 07/19/20 18:18 Nitroglycerin (Nitroglycerin Sl 0.4 Mg/Tab Tab) 0.4 mg SL UD PRN PRN Reason: Chest Pain Stop: 07/19/20 18:10 Pantoprazole Sodium (Pantoprazole 40 Mg Tab) 40 mg PO BID [facility]OS[facility] Stop: 07/19/20 20:59 Last Admin: 06/23/20 08:31 Dose: 40 mg Documented by: Potassium Phosphate (Pot Phosphate Monobasic W/ Sod Tab) 1 tab PO QID [facility] Stop: 07/19/20 20:59 Last Admin: 06/23/20 08:31 Dose: 1 tab Documented by: Rifaximin (Rifaximin 550 Mg Tablet) 550 mg PO BID [facility] Stop: 07/19/20 20:59 Last Admin: 06/23/20 08:32 Dose: 550 mg Documented by: Tamsulosin HCl (Tamsulosin Hcl 0.4 Mg Cap) 0.4 mg PO DAILY [facility] Stop: 07/20/20 08:59 Last Admin: 06/23/20 08:31 Dose: 0.4 mg Documented by:
[2020-06-23] MEDS: LACTULOSE SYRUP 10 GM/15 ML BTL 960 ML PO SCH ×2 (17:00→20:34)
[2020-06-24] MEDS: INSULIN ASPART 100 UNITS/ML 3 ML PEN SC SCH ×2 (08:15→12:29)
[2020-06-24] MEDS: INSULIN GLARGINE SOLOSTAR 100 UNITS/ML 3 ML PEN SC SCH (08:38)
[2020-06-24] MEDS: THIAMINE HCL 100 MG in SYRINGE 9 ML IV SCH ×2 (08:41→10:40)
[2020-06-24] MEDS: PANTOprazole 40 MG TAB PO SCH (08:42)
[2020-06-24] MEDS: POT PHOSPHATE MONOBASIC W/ SOD TAB PO SCH ×2 (08:42→12:28)
[2020-06-24] MEDS: ESCITALOPRAM OXALATE 10 MG TAB PO SCH (08:43)
[2020-06-24] MEDS: TAMSULOSIN HCL 0.4 MG CAP PO SCH (08:43)
[2020-06-24] MEDS: METOPROLOL TARTRATE 25 MG TAB PO SCH (08:44)
[2020-06-24] MEDS: FOLIC ACID 400 MCG TAB PO SCH (08:44)
[2020-06-24] MEDS: FUROSEMIDE 20 MG TAB PO SCH (08:44)
[2020-06-24] MEDS: LACTULOSE SYRUP 10 GM/15 ML BTL 960 ML PO SCH ×2 (08:45→12:28)
[2020-06-24] MEDS: FERROUS GLUCONATE 324 MG TAB PO SCH (08:45)
[2020-06-24] MEDS: RIFAXIMIN 550 MG TABLET PO SCH (08:46)
--- NOTE | 2020-06-24 12:59 | Hospitalist Progress Note ---
Date of Service June 24, 2020 Assessment & Plan (1) Hepatic encephalopathy: He comes from [facility] at [facility] living [facility], for worsening confusion Noted to have pleasantly confused with presence of hepatic flap Has not been moving his bowel regularly Clinically much better this morning Clinically no source of infection found out and ultrasound of the abdomen did not show any ascites Appreciate GI input and recommendation Lactulose restarted and Xifaxan continued Confusion seems to be improved Bowel has not been moving We will try lactulose enema and increase lactulose to 4 times daily Bowel has been moving regularly Denies any more confusion Get PT and OT evaluation before discharge Confusion resolved and has been moving bowels regularly Denies any other symptoms except weakness He will be back to his personal usp with continued PT and OT No evidence of infection Ultrasound did not show any ascites Will discontinue ceftriaxone Hyperammonemia 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 ordered IV phosphorous in the ED and oral phosphorous -serum magnesium is 2.7 and serum potassium at goal so will hold off scheduled home dose magnesium and potassium supplements for now -give banana bag, daily folic acid, daily thiamine -conveyor man consult -Phosphate and other electrolytes have been normalized Type 2 Diabetes Mellitus with intermediate current use of insulin -check hemoglobin A1c-6.5 -hold home dose empagliflozin -reducing home dose Lantus of 28 units BID for now and use Lantus 20 units BID 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, titrate insulin as needed -sliding scale insulin as needed Iron Deficiency anemia Thrombocytopenia (likely related to cirrhosis) -continue home dose supplementary iron supplements, monitor the CBC and platelets chronic kidney disease stage III -monitor the renal function --Creatinine remains stable --Monitor PRP GERD -continue pantoprazole Diaphragmatic hernia -chronic other cardiac pulmonary history as per records: -coronary artery disease, chronic ischemic heart disease, s/p angioplasty with stent, aortic valve stenosis, s/p TAVR, interstitial pulmonary disease, hypertension, right pulmonary nodule -continue home dose metoprolol tartrate 25 mg BID -nebulizers as needed PT/OT evaluations Daughter in law Osborn ([phone], ) reports that patient's Code Status is DNR/DNI via telephone with admiting physician Luan Rodriguez ([phone], ) We will get PT and OT evaluation before discharge He will be discharged to [facility] this afternoon Admission and Anticipated Discharge Date Admission Date: June 19, 2020 Subjective 06/20/2020 The patient was seen and examined in medical telemetry unit He was admitted with hepatic encephalopathy with known history of cirrhosis Remains generally weak and lethargic and encephalopathy seems to be improving Has had small amount of bowel movement and denies any other symptoms 06/21/2020 The patient was seen and examined in medical telemetry unit He has been feeling a lot better today Remains generally weak and lethargic but no more confusion His bowel has not moved today 06/22/2020 The patient was seen and examined in medical telemetry unit His bowel has not been moving even with lactulose 40 g 3 times daily Remains stable and generally weak and lethargic 06/23/2020 The patient was seen and examined in medical telemetry unit He has been feeling a lot better and has been moving his bowels regularly Remains weak but confusion seems to be improved 06/24/2020 Patient was seen and examined in medical telemetry unit Out of bed on a chair and has been feeling a lot better Has been moving his bowels regularly No more confusion He will be discharge to personal usp this afternoon Review of Systems Review of Systems: All systems reviewed and are unremarkable except as noted below Gastrointestinal: Presence of hepatic flap Neurologic: + generalized weakness and + confusion (Pleasantly confused) Physical Exam Physical Exam: Sitting in a chair without any acute distress Constitutional: well developed, well nourished and + ill appearing; no acute distress Eyes: PERRL, conjunctivae normal, anicteric sclerae ENMT: external ear and nose normal, oropharynx normal Neck: trachea midline, no thyromegaly Respiratory: normal respiratory effort; no respiratory distress Auscultation: lungs clear to auscultation bilaterally Cardiovascular: Rate/Rhythm: regular rate and regular rhythm Heart Sounds: no murmur Extremities: + edema (1+ bilateral leg edema) Gastrointestinal (Abdomen): Inspection/Auscultation: abdomen normal to inspection and normal bowel sounds Percussion/Palpation: abdomen soft; abdomen nontender and no ascites Musculoskeletal: No acute arthritis in any joints Neurologic: moves all extremities; no focal motor deficits Motor/Sensory: no tremor (Still has hepatic flap) No hepatic flap. Patient is resolved Psychiatric: Insight: + poor insight Lymphatic: no cervical or axillary lymphadenopathy Results & Data Results & Data ([facility]) Vital Signs (Past 12 Hours) Vital Signs Temp Pulse Resp BP BP Pulse Ox 06/24/20 11:37 36.7 C 65 20 128/63 93 06/24/20 07:28 37.0 C 56 L 18 95/56 L 94 06/24/20 03:12 36.9 C 60 16 102/54 L 93 Medications Administered Current Inpatient Medications Dextrose (Dextrose 50% 50 Ml Syringe) 25 - 50 ml IV UD PRN; Protocol PRN Reason: Hypoglycemia Protocol Stop: 07/19/20 18:18 Escitalopram Oxalate (Escitalopram Oxalate 10 Mg Tab) 5 mg PO DAILY GOSIA Stop: 07/20/20 08:59 Last Admin: 06/24/20 08:43 Dose: 5 mg Documented by: Ferrous Gluconate (Ferrous Gluconate 324 Mg Tab) 324 mg PO BID [facility]OS[facility] Stop: 07/19/20 20:59 Last Admin: 06/24/20 08:45 Dose: 324 mg Documented by: Folic Acid (Folic Acid 400 Mcg Tab) 400 mcg PO QAM GOS[facility] Stop: 07/19/20 18:14 Last Admin: 06/24/20 08:44 Dose: 400 mcg Documented by: Furosemide (Furosemide 20 Mg Tab) 20 mg PO DAILY GOSIA Stop: 07/20/20 08:59 Last Admin: 06/24/20 08:44 Dose: 20 mg Documented by: Glucagon (Glucagon For Inj 1 Mg Vial) 1 mg SQ UD PRN; Protocol PRN Reason: Hypoglycemia Protocol Stop: 07/19/20 18:18 Glucose (Glucose 10 Tabs/Tube) 4 - 8 tabs PO UD PRN; Protocol PRN Reason: Hypoglycemia Protocol Stop: 07/19/20 18:18 Glucose (Glucose 40% Gel 15 Gm Tube) 15 - 30 gm PO UD PRN; Protocol PRN Reason: Hypoglycemia Protocol Stop: 07/19/20 18:18 Thiamine HCl 100 mg/ Syringe 10 mls @ 2 mls/min IV QAM GOSIA Stop: 07/20/20 08:59 Last Admin: 06/24/20 10:40 Dose: Not Given Documented by: Insulin Aspart (Insulin Aspart 100 Units/Ml 3 Ml Pen) 0 units SC ACHS GOS[facility] Stop: 07/19/20 20:59 Last Admin: 10/06/20 12:29 Dose: 5 units Documented by: Insulin Glargine (Insulin Glargine Solostar 100 Units/Ml 3 Ml Pen) 20 units SC BID [facility]OS[facility] Stop: 07/19/20 20:59 Last Admin: 06/24/20 08:38 Dose: 20 units Documented by: Lactulose (Lactulose Syrup 10 Gm/15 Ml Btl 960 Ml) 40 gm PO QID GOSIA Stop: 07/23/20 16:59 Last Admin: 06/24/20 12:28 Dose: 40 gm Documented by: Metoprolol Tartrate (Metoprolol Tartrate 25 Mg Tab) 25 mg PO BID GOSIA Stop: 07/19/20 20:59 Last Admin: 06/24/20 08:44 Dose: Not Given Documented by: Miscellaneous (Carbohydrates For Hypoglycemia ) 15 - 30 gm PO UD PRN PRN Reason: Hypoglycemia Protocol Stop: 07/19/20 18:18 Nitroglycerin (Nitroglycerin Sl 0.4 Mg/Tab Tab) 0.4 mg SL UD PRN PRN Reason: Chest Pain Stop: 07/19/20 18:10 Pantoprazole Sodium (Pantoprazole 40 Mg Tab) 40 mg PO BID [facility] Stop: 07/19/20 20:59 Last Admin: 06/24/20 08:42 Dose: 40 mg Documented by: Potassium Phosphate (Pot Phosphate Monobasic W/ Sod Tab) 1 tab PO QID [facility] Stop: 07/19/20 20:59 Last Admin: 06/24/20 12:28 Dose: 1 tab Documented by: Rifaximin (Rifaximin 550 Mg Tablet) 550 mg PO BID [facility] Stop: 07/19/20 20:59 Last Admin: 06/24/20 08:46 Dose: 550 mg Documented by: Tamsulosin HCl (Tamsulosin Hcl 0.4 Mg Cap) 0.4 mg PO DAILY [facility] Stop: 07/20/20 08:59 Last Admin: 06/24/20 08:43 Dose: 0.4 mg Documented by:
--- NOTE | 2020-06-25 10:44 | Discharge Summary ---
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, [place], for worsening confusion and concern for recurrence of elevated ammonia is for which he has been admitted before. The notes on arrival also concerned of abdominal discomforts. But as per ED assessment and hospitalist assessment, patient's confusion appears to be mild to moderate. Patient is a poor historian but he is able to follow directions. He does not know the year or the month. His daughter in law Irena on the telephone ([phone], ) reports that patient's Code Status is DNR/DNI. Patient reports he uses cane with ambulation at home and this is supported by accompanied documentation from [facility] living facility. Patient does not appear to have any abdominal pain and denies of having pain anywhere to the body. He has a hernia to the left of the umbilicus but does not appear to have gross ascites. Patient breathing on room air. He is not short of breath. Patient was able to take the lactulose by mouth as ordered by the ED provider Allergies in the records are list as angioedema from PRASHANT inhibitors, and muscle pain from simvastatin Primary Care Provider: Duglas Evans MD Admission Exam Per Admitting Provider Constitutional: + frail appearing and cooperative Eyes: PERRL, conjunctivae normal, anicteric sclerae EOM intact bilaterally ENMT: external ear and nose normal, oropharynx normal Neck: normal visual inspection Respiratory: normal respiratory effort, lungs clear to auscultation Cardiovascular: Rate/Rhythm: + bradycardic Gastrointestinal (Abdomen): Percussion/Palpation: abdomen soft (abdominal hernia) Musculoskeletal: Head/Neck/Chest: normocephalic and head atraumatic Neurologic: PERRL, EOMI, accommodation nl, no face palsy, no dysarthria moves all extremities Psychiatric: Orientation: alert and cooperative Principal Diagnosis Hepatic encephalopathy-resolved, cirrhosis of liver secondary to Hebert, type 2 diabetes, CKD stage III, CAD Discharge Exam Constitutional well developed, well nourished and + ill appearing; no acute distress Eyes PERRL, conjunctivae normal, anicteric sclerae ENMT external ear and nose normal, oropharynx normal Neck trachea midline, no thyromegaly Respiratory normal respiratory effort; no respiratory distress Auscultation: lungs clear to auscultation bilaterally Cardiovascular Rate/Rhythm: regular rate and regular rhythm Heart Sounds: no murmur Extremities: + edema (1+ bilateral leg edema) Gastrointestinal (Abdomen) Inspection/Auscultation: abdomen normal to inspection and normal bowel sounds Percussion/Palpation: abdomen soft; abdomen nontender and no ascites Neurologic moves all extremities; no focal motor deficits Motor/Sensory: no tremor (Still has hepatic flap) Psychiatric Insight: + poor insight Lymphatic no cervical or axillary lymphadenopathy Discharge Data Allergies Allergy/AdvReac Type Severity Reaction Status Date / Time PRASHANT Inhibitors Allergy Severe ANGIOEDEMA Verified 06/19/20 17:57 from 10/10/11 ED adm lisinopril Allergy Severe Edema - Verified 06/19/20 17:57 face, lips and tongue simvastatin Allergy Unknown RASH, SORE Verified 06/19/20 17:57 ALL OVER. 2013: Uses Crestor Consultations 06/19/20 17:16 ED Decision to Admit Stat 06/19/20 18:14 Consult Case Management - Discharge Planning Routine 06/20/20 07:55 Consult Gastroenterology Routine Ordered Studies 06/19/20 16:18 CT head/brain wo con Stat 06/20/20 11:00 US abdomen ltd ascites Routine Hospital Course (1) Hepatic encephalopathy: He comes from [facility], for worsening confusion Noted to have pleasantly confused with presence of hepatic flap Has not been moving his bowel regularly Clinically much better this morning Clinically no source of infection found out and ultrasound of the abdomen did not show any ascites Appreciate GI input and recommendation Lactulose restarted and Xifaxan continued Confusion seems to be improved Bowel has not been moving We will try lactulose enema and increase lactulose to 4 times daily Bowel has been moving regularly Denies any more confusion Get PT and OT evaluation before discharge Confusion resolved and has been moving bowels regularly Denies any other symptoms except weakness He will be back to his personal correction with continued PT and OT No evidence of infection Ultrasound did not show any ascites Will discontinue ceftriaxone Hyperammonemia 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 ordered IV phosphorous in the ED and oral phosphorous -serum magnesium is 2.7 and serum potassium at goal so will hold off scheduled home dose magnesium and potassium supplements for now -give banana bag, daily folic acid, daily thiamine -hydrodynamics teacher consult -Phosphate and other electrolytes have been normalized Type 2 Diabetes Mellitus with intermediate teacher current use of insulin -check hemoglobin A1c-6.5 -hold home dose empagliflozin -reducing home dose Lantus of 28 units BID for now and use Lantus 20 units BID 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, titrate insulin as needed -sliding scale insulin as needed Iron Deficiency anemia Thrombocytopenia (likely related to cirrhosis) -continue home dose supplementary iron supplements, monitor the CBC and platelets chronic kidney disease stage III -monitor the renal function --Creatinine remains stable --Monitor PRP GERD -continue pantoprazole Diaphragmatic hernia -chronic other cardiac pulmonary history as per records: -coronary artery disease, chronic ischemic heart disease, s/p angioplasty with stent, aortic valve stenosis, s/p TAVR, interstitial pulmonary disease, hypertension, right pulmonary nodule -continue home dose metoprolol tartrate 25 mg BID -nebulizers as needed PT/OT evaluations Daughter in law Osborn ([phone], ) reports that patient's Code Status is DNR/DNI via telephone with admiting physician Luan Rodriguez ([phone], ) We will get PT and OT evaluation before discharge He will be discharged to [facility] this afternoon Total Time Total Time Spent Total Time Spent (In Minutes): 40 minutes Total Time Includes: Examination of the Patient, Discharge Planning, Medication Reconciliation and Communication With Other Providers Discharge Plan Discharge Items Patient Disposition: Personal Half-Way Reason For Visit: CIRROHOSIS,LETHARGY, ELEVATED AMMONIA LEVELS Discharge Diagnosis: Hepatic encephalopathy-resolved, cirrhosis of liver secondary to Hebert, type 2 diabetes, CKD stage III, CAD Condition on Discharge: Fair Activity: As commented below Activity Comment: Continue PT and OT at the facility Non-emergency contact: Primary Care Provider Call non-emergency contact if: you have any medication questions and your symptoms worsen Follow-up/Referrals: Duglas Evans MD [Primary Care Provider] - (Please make an appointment with your primary care provider within 7 days following discharge from the facility) Diet: Carb Consistent or DM2 and Low Sodium (2gm) Fluids: 1500ml (6 cups) Addtl Attending Provider Instructions: Please take precaution to avoid falls Continue lactulose to have 2 bowel movements a day You may need to increase your lactulose doses to have 2 bowel movements daily Pending Studies at Discharge: No Stand-Alone Forms: My AWID, Smoking Cessation Skilled Items Patient informed of condition?: Yes DNR: Yes Discharge Level of Care: Other Communicable Disease: No Discharge Prognosis: Stable Lines: None Urinary Catheter: No Medications and DC Order Prescriptions: Continued pantoprazole 40 mg tablet,delayed release (DR/EC) 40 mg PO BID RF: 0 escitalopram oxalate 5 mg tablet 5 mg PO DAILY RF: 0 potassium chloride 10 mEq Capsule, Extended Release 20 meq PO DAILY RF: 0 tamsulosin 0.4 mg capsule 0.4 mg PO DAILY RF: 0 folic acid 1 mg tablet 1 mg PO DAILY RF: 0 metoprolol tartrate 25 mg tablet 25 mg PO BID RF: 0 ferrous gluconate 324 mg (38 mg iron) Tablet 324 mg PO BID RF: 0 rifaximin 550 mg Tablet 550 mg PO BID RF: 0 empagliflozin 25 mg Tablet 25 mg PO DAILY RF: 0 nitroglycerin 0.4 mg Tablet, Sublingual 0.4 mg sublingual UD PRN (Reason: Chest Pain) RF: 0 furosemide [Lasix] 20 mg Tablet 20 mg PO DAILY RF: 0 albuterol sulfate [Ventolin HFA] 90 mcg/actuation Hfa Aerosol Inhaler 2 puff INHALATION Q4H PRN (Reason: SHORT OF BREATH) RF: 0 fluticasone propionate [Flonase Allergy Relief] 50 mcg/actuation [place],Suspension 1 spray INTRANASAL DAILY RF: 0 lactulose 10 gram/15 mL (15 mL) Solution 40 g PO TID RF: 0 magnesium oxide 400 mg magnesium Tablet 400 mg PO BID RF: 0 ipratropium-albuterol 0.5 mg-3 mg(2.5 mg base)/3 mL Solution For Nebulization 3 ml INHALATION QID RF: 0 Lantus Solostar U-100 Insulin 100 unit/mL (3 mL) insulin pen 28 unit subcut BID RF: 0 insulin aspart U-100 [Novolog Flexpen U-100 Insulin] 100 unit/mL (3 mL) insulin pen 0 unit SUBCUT TID RF: 0 acetaminophen [Tylenol] 325 mg Tablet 650 mg PO Q4 PRN (Reason: Fever Or Pain) RF: 0 Discharge Orders: Discharge Order (Routine); Ordered 06/24/20 Ordered By: Precious Mcwilliams/Other Patient Handouts: Managing Type 2 Diabetes Admission Data Admit Date/Time: 06/19/20 18:20 Attending Provider: Precious Ragland Admit Provider: Saji Shin Primary Care Provider: Duglas Evans Other Providers: Saji Shin ; Armando Green Other Interventions: Discharge Summary Assessment (RN) Last Done: 06/24/20 14:02
== END 2020-06-24 14:55 | disposition home or self-care (01) | DRG 442 ==
LOC: ED 14:33 → 2N 18:20 → SUATTDRO 18:20 → 2N 19:46

== ENCOUNTER 2020-07-05 12:15 | Inpatient (IN) ==
--- NOTE | 2020-07-05 12:20 | Emergency Department Note ---
Impression & Plan Acute hepatic encephalopathy, Hyperammonemia, Thrombocytopenia ED Provider Note NAME: RADHA ENRIQUEZ AGE: 79 SEX: M : 1940 ARRIVES VIA: Ambulance INFORMANT: Patient, ED PROVIDER(S): Jermaine Robb MD Chief Complaint: Confusion, slow to respond HPI: Did receive report from nursing the patient does present from [facility] with increasing confusion and has been more slow to respond. Patient does have a known history of hepatic encephalopathy and there was concern about elevation in ammonia. No reported fevers, rigors, cough, chest pains, shortness of breath abdominal pain or nausea vomiting. The patient states that he has been taking his medications. Patient does state that he has been full of gas. No reported falls. The patient symptoms reportedly gotten progressively worse over the last 2 to 3 days. Patient reportedly has been taking his medications and tolerating by mouth. ROS: See HPI for pertinent positives and negatives. A total of 10 systems were reviewed and otherwise negative. Past medical history: See below Surgical history: See below Social history: See below Physical Exam: GENERAL: Wearing a mask. NAD, non-toxic. EYE EXAM: Normal conjunctiva. PERRL, no anisocoria and EOM's grossly intact w/o pain. NECK: Supple, no nuchal rigidity, no adenopathy, non-tender. No signs of meningismus. LUNGS: Clear to auscultation. Normal chest wall mechanics. HEART: NSR, no MRG. ABDOMEN: Abdomen soft, non-tender, normo-active bowel sounds, no masses, no rebound or guarding. BACK: No CVA TTP. SKIN: No rashes and no bruising. UPPER EXTREMITIES: Upper extremities are grossly normal. LOWER EXTREMITIES: Grossly normal, no edema. NEURO EXAM: Awake alert and oriented to person and date of , follows basic commands, moves all 4 extremities, slow to respond, normal speech. Differential diagnoses: Infection, dehydration, metabolic abnormality, hypo/hyperglycemia, electrolyte disturbance, anemia, hypoxia, cardiac sources, intracerebral event, toxicologic, neurologic, as well as other pathologies. Course: Patient was seen and evaluated the bedside. Full history physical exam was performed. EKG: Indication: Confusion Sinus bradycardia, rate of 57, normal intervals, right axis deviation, no ST changes. Imaging Studies: Radiology results as stated below per my review in the radiologist's interpretation: XR chest 1V portable CLINICAL HISTORY: weakness COMPARISON STUDY: 06/19/2020 FINDINGS: The heart is at the upper limits of normal in size. There is aortic valve prosthesis. There is no failure. There is no focal pulmonary consolidation. There are no pleural effusions. There is stable chronic interstitial thickening.[There is stable right midlung zone nodularity, likely representing parenchymal scarring. IMPRESSION: No active disease in the chest. ACT 112: Negative or not required by law. Electronically signed by: Paulino Kat M.D. 07/05/2020 1:08 PM Dictated: 07/05/201306 Transcribed: 07/05/201306 CT head/brain wo con CLINICAL HISTORY: confusion COMPARISON STUDY: 06/19/2020 TECHNIQUE: Axial CT of the brain is performed from the vertex to the skull base. IV contrast was not administered for this examination. A dose lowering technique was utilized adhering to the principles of ALARA. CT DOSE: 537.48 mGy.cm FINDINGS: No intra or extra-axial mass lesions are visualized. There is no CT evidence of acute cortical infarction. There is no evidence of midline shift. There is no acute hemorrhage. No calvarial fractures are visualized. There are minor white matter hypodensities likely on a small vessel basis. There is no evidence of pathologic ventricular dilatation. There is no evidence of acute sinusitis IMPRESSION: No acute intracranial findings ACT 112: Negative or not required by law. Electronically signed by: Paulino Kat M.D. 07/05/2020 1:07 PM Dictated: 07/05/201305 Transcribed: 07/05/201305 Cardiac monitoring: An order was placed for continuous cardiac monitoring. The monitor shows a rate of 62 with sinus rhythm. MDM: Patient does present with confusion. Blood work was obtained along with an EKG troponin chest x-ray CT of the head. Patient has very mild leukopenia and thrombocytopenia. Appears chronic. Patient has normal kidney function. Glucose is normal albeit slightly elevated. AST and bilirubin slightly elevated along with alk phos. Troponin is not detectable. TSH normal. Chest x-ray is clear CT of the head does not show any acute changes. The patient's ammonia is elevated at 86. Given the patient's chronic liver disease as well as decreased bowel movements believe the patient likely needs to be titrated to the point where he has improvement in his overall mental status, lowered ammonia to where he would be suitable in the outpatient setting at his [facility]. I did speak with the on-call hospitalist Dr. Dayna DO the patient was subsequently admitted to the medicine service. Past Med/Surg History Medical History Anemia Anxiety Aortic stenosis "severe on echo 04/2017" On 07/03/16 17:13 Cande Poon wrote "severe on echo 04/2016" CAD (coronary artery disease) "2009 - RCA stent 2012 - RCA stent restenosis, s/p AMOS to RCA" Cirrhosis of liver not due to alcohol CKD (chronic kidney disease), stage III Diverticulosis Dyslipidemia GERD (gastroesophageal reflux disease) Hepatic encephalopathy Hiatal hernia HTN (hypertension) Insulin dependent diabetes mellitus Osteoarthritis Portal hypertensive gastropathy Transaminitis Surgical History H/O hemorrhoidectomy History of cardiac catheterization NO STENTS History of colonoscopy History of lumbar laminectomy History of tooth extraction Family History Son Family history of diabetes mellitus Family/Other Family hx of colon cancer Social History Smoking Status: Former smoker Second Hand Exposure: Yes; Hx Alcohol Use: No Hx Substance Use: No Preferred Language: Syrian Communication Ability: Effective Hand Pattern Marker Required: No Beliefs That Will Affect Care: None marital status: / Current Living Situation: Personal Care Facility Current Living Situation Comment: [facility] How many Children do You have: 3 Feels Safe at Home: Yes Assistive Devices: Walker Allergies Allergies Allergy/AdvReac Type Severity Reaction Status Date / Time PRASHANT Inhibitors Allergy Severe ANGIOEDEMA Verified 07/05/20 12:46 from 10/10/11 ED adm lisinopril Allergy Severe Edema - Verified 07/05/20 12:46 face, lips and tongue simvastatin Allergy Unknown RASH, SORE Verified 07/05/20 12:46 ALL OVER. 2013: Uses C[employer] Home Meds Home Medications Medication Instructions Recorded Confirmed empagliflozin 25 mg PO DAILY 01/14/19 07/05/20 ferrous gluconate 324 mg PO BID 01/14/19 07/05/20 folic acid 1 mg PO DAILY 01/14/19 07/05/20 metoprolol tartrate 25 mg PO BID 01/14/19 07/05/20 potassium chloride 20 meq PO DAILY 01/14/19 07/05/20 rifaximin 550 mg PO BID 01/14/19 07/05/20 tamsulosin 0.4 mg PO DAILY 01/14/19 07/05/20 albuterol sulfate [Ventolin HFA] 2 puff INHALATION Q4H PRN 02/20/19 07/05/20 fluticasone propionate [Flonase 1 spray INTRANASAL DAILY 02/20/19 07/05/20 Allergy Relief] furosemide [Lasix] 20 mg PO DAILY 02/20/19 07/05/20 lactulose 40 g PO TID 02/20/19 07/05/20 magnesium oxide 400 mg PO BID 02/20/19 07/05/20 nitroglycerin 0.4 mg SUBLINGUAL UD PRN 02/20/19 07/05/20 ipratropium-albuterol 3 ml INHALATION QID 01/13/20 07/05/20 Lantus Solostar U-100 Insulin 28 unit SUBCUT BID 03/16/20 07/05/20 escitalopram oxalate 5 mg PO DAILY 05/08/20 07/05/20 pantoprazole 40 mg PO BID 05/08/20 07/05/20 acetaminophen [Tylenol] 650 mg PO Q4 PRN 06/19/20 07/05/20 insulin aspart U-100 [Novolog 0 unit SUBCUT TID 06/19/20 07/05/20 Flexpen U-100 Insulin] Results & Data (ED) Vital Signs Vital Signs - 24 hr 07/05/20 12:20 07/05/20 12:22 07/05/20 12:23 Temperature 36.9 C Temperature Source Oral Pulse Rate 57 L 60 57 L Pulse Rate from SpO2 Sensor 61 57 L Respiratory Rate 18 15 19 Blood Pressure 120/55 L 120/55 L Blood Pressure Mean 76 65 Pulse Oximetry 97 95 95 Oxygen Delivery Method Room Air Sepsis Recent Fever Within 48 Hours No Sepsis New/Unexplained Change in Mental Status N/A Sepsis Action Taken by Nursing No Action Required 07/05/20 12:30 07/05/20 12:40 07/05/20 12:50 Temperature Temperature Source Pulse Rate 58 L 57 L 57 L Pulse Rate from SpO2 Sensor 58 L 57 L 57 L Respiratory Rate 19 18 17 Blood Pressure 125/53 L Blood Pressure Mean 83 Pulse Oximetry 96 95 95 Oxygen Delivery Method Sepsis Recent Fever Within 48 Hours Sepsis New/Unexplained Change in Mental Status Sepsis Action Taken by Nursing 07/05/20 13:06 07/05/20 13:10 07/05/20 13:20 Temperature Temperature Source Pulse Rate 60 55 L 56 L Pulse Rate from SpO2 Sensor 54 L 56 L 56 L Respiratory Rate 15 15 Blood Pressure Blood Pressure Mean Pulse Oximetry 94 94 93 Oxygen Delivery Method Sepsis Recent Fever Within 48 Hours Sepsis New/Unexplained Change in Mental Status Sepsis Action Taken by Nursing 07/05/20 13:30 07/05/20 13:40 07/05/20 13:50 Temperature Temperature Source Pulse Rate 55 L 56 L 55 L Pulse Rate from SpO2 Sensor 55 L 55 L 55 L Respiratory Rate 14 15 14 Blood Pressure 92/46 L Blood Pressure Mean 61 Pulse Oximetry 93 94 94 Oxygen Delivery Method Sepsis Recent Fever Within 48 Hours Sepsis New/Unexplained Change in Mental Status Sepsis Action Taken by Nursing 07/05/20 14:00 07/05/20 14:10 07/05/20 14:20 Temperature Temperature Source Pulse Rate 54 L 54 L 53 L Pulse Rate from SpO2 Sensor 54 L 54 L 53 L Respiratory Rate 14 14 14 Blood Pressure 94/47 L Blood Pressure Mean 65 Pulse Oximetry 95 94 94 Oxygen Delivery Method Sepsis Recent Fever Within 48 Hours Sepsis New/Unexplained Change in Mental Status Sepsis Action Taken by Nursing 07/05/20 14:30 07/05/20 14:40 Temperature Temperature Source Pulse Rate 59 L 54 L Pulse Rate from SpO2 Sensor 59 L 54 L Respiratory Rate Blood Pressure 124/53 L Blood Pressure Mean 87 Pulse Oximetry 93 94 Oxygen Delivery Method Sepsis Recent Fever Within 48 Hours Sepsis New/Unexplained Change in Mental Status Sepsis Action Taken by Long-Term Medications Current Medication List: was personally reviewed by me Laboratory Data Attestation: I reviewed the patient's lab results. Result diagrams: 07/05/20 12:35 07/05/20 12:35 Lab Results 07/05/20 07/05/20 07/05/20 Range/Units 12:35 12:35 12:35 WBC 4.16 L (4.8-10.8) K/uL RBC 4.49 L (4.7-6.1) M/uL Hgb 15.0 (14.0-18.0) g/dL Hct 43.8 (42-52) % MCV 97.6 (80-100) fL MCH 33.4 (25-34) pg MCHC 34.2 (32-36) g/dL RDW Std Deviation 59.5 H (36.4-46.3) fL RDW Coeff of Adrian 16.7 H (11.5-14.5) % Plt Count 59 L (130-400) K/uL MPV 12.2 H (7.4-10.4) fL Neutrophils % (Manual) 66.9 % Lymphocytes % (Manual) 6.1 % Reactive Lymphs % (Man) 12.2 % Monocytes % (Manual) 9.6 % Eosinophils % (Manual) 5.2 % Neutrophils # (Manual) 2.78 (1.4-6.5) K/uL Total Absolute Neuts 2.78 (1.4-6.5) K/uL Lymphocytes # (Manual) 0.25 L (1.2-3.4) K/uL Reactive Lymphs # 0.51 K/uL Total Abs Lymphocytes 0.76 L (1.2-3.4) K/uL Monocytes # (Manual) 0.40 (0.11-0.59) K/uL Eosinophils # (Manual) 0.22 (0-0.5) K/uL RBC Morphology Unremarkable PT 11.8 (9.0-12.0) Seconds INR 1.1 (0.9-1.1) Sodium 142 (136-145) mmol/L Potassium 4.2 (3.5-5.1) mmol/L Chloride 110 H (98-107) mmol/L Carbon Dioxide 26 (21-32) mmol/L Anion Gap 6.0 (3-11) BUN 9 (7-18) mg/dl Creatinine 1.05 (0.6-1.4) mg/dl Est Cr Clr Drug Dosing 49.9 ml/min Est GFR ( Amer) 76.8 Est GFR (Non-Af Amer) 66.3 BUN/Creatinine Ratio 8.2 L (10-20) Glucose 166 H (70-99) mg/dl POC Glucose (70-99) mg/dl Calcium 9.1 (8.5-10.1) mg/dl Magnesium 2.4 (1.8-2.4) mg/dl Total Bilirubin 1.4 H (0.2-1) mg/dl AST 68 H (15-37) U/L ALT 34 (12-78) U/L Alkaline Phosphatase 305 H (45-117) U/L Ammonia (11-32) umol/L Troponin I < 0.015 (0-0.045) ng/ml Total Protein 6.4 (6.4-8.2) gm/dl Albumin 2.9 L (3.4-5.0) gm/dl Globulin 3.5 (2.5-4.0) gm/dl Albumin/Globulin Ratio 0.8 L (0.9-2) TSH 3.950 (0.300-4.500) uIu/ml Specimen Hemolysis 07/05/20 07/05/20 07/05/20 Range/Units 12:35 12:42 13:39 WBC (4.8-10.8) K/uL RBC (4.7-6.1) M/uL Hgb (14.0-18.0) g/dL Hct (42-52) % MCV (80-100) fL MCH (25-34) pg MCHC (32-36) g/dL RDW Std Deviation (36.4-46.3) fL RDW Coeff of Adrian (11.5-14.5) % Plt Count (130-400) K/uL MPV (7.4-10.4) fL Neutrophils % (Manual) % Lymphocytes % (Manual) % Reactive Lymphs % (Man) % Monocytes % (Manual) % Eosinophils % (Manual) % Neutrophils # (Manual) (1.4-6.5) K/uL Total Absolute Neuts (1.4-6.5) K/uL Lymphocytes # (Manual) (1.2-3.4) K/uL Reactive Lymphs # K/uL Total Abs Lymphocytes (1.2-3.4) K/uL Monocytes # (Manual) (0.11-0.59) K/uL Eosinophils # (Manual) (0-0.5) K/uL RBC Morphology PT (9.0-12.0) Seconds INR (0.9-1.1) Sodium (136-145) mmol/L Potassium (3.5-5.1) mmol/L Chloride (98-107) mmol/L Carbon Dioxide (21-32) mmol/L Anion Gap (3-11) BUN (7-18) mg/dl Creatinine (0.6-1.4) mg/dl Est Cr Clr Drug Dosing ml/min Est GFR ( Amer) Est GFR (Non-Af Amer) BUN/Creatinine Ratio (10-20) Glucose (70-99) mg/dl POC Glucose 151 H (70-99) mg/dl Calcium (8.5-10.1) mg/dl Magnesium (1.8-2.4) mg/dl Total Bilirubin (0.2-1) mg/dl AST (15-37) U/L ALT (12-78) U/L Alkaline Phosphatase (45-117) U/L Ammonia 86.0 H (11-32) umol/L Troponin I (0-0.045) ng/ml Total Protein (6.4-8.2) gm/dl Albumin (3.4-5.0) gm/dl Globulin (2.5-4.0) gm/dl Albumin/Globulin Ratio (0.9-2) TSH (0.300-4.500) uIu/ml Specimen Hemolysis Administered Medications Discontinued Medications Sodium Chloride (Nss) 500 mls @ 999 mls/hr IV .Q31M ONE Stop: 07/05/20 15:12 Last Infusion: 07/05/20 15:16 Dose: 0 mls/hr Documented by: [id number] Admin: 07/05/20 14:45 Dose: 999 mls/hr Documented by: [id number] Lactulose (Lactulose Syrup 20 Gm/30 Ml Udc) 40 gm PO NOW STA Stop: 07/05/20 14:19 Last Admin: 07/05/20 14:23 Dose: 40 gm Documented by: [id number] Discharge Plan Visit Data Chief Complaint: Illness Stated Complaint: Lethargic/slow to respond poss elevated ammonia ED Provider: Jermaine Robb Discharge Problem: Acute hepatic encephalopathy, Hyperammonemia, Thrombocytopenia Patient Disposition: Admitted As Inpatient Discharge Instructions Interventions: ED Discharge Assessment Last Done: 07/05/20 15:24
[2020-07-05 13:01] LABS: INR 1.1 (0.9-1.1); Prothrombin Time 11.8 Seconds (9.0-12.0)
--- NOTE | 2020-07-05 13:09 | CT Scan Report ---
CT head/brain wo con CLINICAL HISTORY: confusion COMPARISON STUDY: 06/19/2020 TECHNIQUE: Axial CT of the brain is performed from the vertex to the skull base. IV contrast was not administered for this examination. A dose lowering technique was utilized adhering to the principles of ALARA. CT DOSE: 537.48 mGy.cm FINDINGS: No intra or extra-axial mass lesions are visualized. There is no CT evidence of acute cortical infarc tion. There is no evidence of midline shift. There is no acute hemorrhage. No calvarial fractures ar e visualized. There are minor white matter hypodensities likely on a small vessel basis. There is no evidence of pathologic ventricular dilatation. There is no evidence of acute sinusitis IMPRESSION: No acute intracranial findings ACT 112: Negative or not required by law. Electronically signed by: Paulino Kat M.D. 07/05/2020 1:07 PM
--- NOTE | 2020-07-05 13:10 | XRay Report ---
XR chest 1V portable CLINICAL HISTORY: weakness COMPARISON STUDY: 06/19/2020 FINDINGS: The heart is at the upper limits of normal in size. There is aortic valve prosthesis. There is no failure. There is no focal pulmonary consolidation. There are no pleural effusions. There is s table chronic interstitial thickening.[There is stable right midlung zone nodularity, likely represen ting parenchymal scarring. IMPRESSION: No active disease in the chest. ACT 112: Negative or not required by law. Electronically signed by: Paulino Kat M.D. 07/05/2020 1:08 PM
[2020-07-05 13:14] LABS: ALC (manual) 0.76 K/uL (1.2-3.4); ANC (manual) 2.78 K/uL (1.4-6.5); Eosinophils # (manual) 0.22 K/uL (0-0.5); Eosinophils % (manual) 5.2 %; Hematocrit (blood only) 43.8 % (42-52); Lymphocytes # (manual) 0.25 K/uL (1.2-3.4); Lymphocytes % (manual) 6.1 %; Mean Corpuscular Hemoglobin 33.4 pg (25-34); Mean Corpuscular Hgb Conc 34.2 g/dL (32-36); Mean Corpuscular Volume 97.6 fL (80-100); Mean Platelet Volume 12.2 fL (7.4-10.4); Monocytes % (manual) 9.6 %; Neutrophils # (manual) 2.78 K/uL (1.4-6.5); Neutrophils % (manual) 66.9 %; Platelet Count 59 K/uL (130-400); RBC Morphology Unremarkable; RDW Coefficient of Variation 16.7 % (11.5-14.5); RDW Standard Deviation 59.5 fL (36.4-46.3); Reactive Lymphocytes # (manual) 0.51 K/uL; Reactive Lymphocytes % (manual) 12.2 %; Red Blood Count 4.49 M/uL (4.7-6.1); White Blood Count 4.16 K/uL (4.8-10.8)
[2020-07-05 13:24] LABS: Alanine Aminotransferase 34 U/L (12-78); Albumin Globulin Ratio 0.8 (0.9-2); Albumin Level 2.9 gm/dl (3.4-5.0); Alkaline Phosphatase 305 U/L (45-117); Aspartate Aminotransferase 68 U/L (15-37); BUN Creatinine Ratio 8.2 (10-20); Bilirubin,Total 1.4 mg/dl (0.2-1); Blood Urea Nitrogen 9 mg/dl (7-18); Calcium 9.1 mg/dl (8.5-10.1); Carbon Dioxide 26 mmol/L (21-32); Chloride 110 mmol/L (98-107); Creatinine Clr Calc Pharmacy 49.9 ml/min; Est GFR (African American) 76.8; Est GFR (Non-African American) 66.3; Globulin 3.5 gm/dl (2.5-4.0); Glucose 166 mg/dl (70-99); Magnesium 2.4 mg/dl (1.8-2.4); Potassium 4.2 mmol/L (3.5-5.1); Sodium 142 mmol/L (136-145); Total Protein 6.4 gm/dl (6.4-8.2); Troponin I < 0.015 ng/ml (0-0.045)
[2020-07-05] MEDS ORDERED: LACTULOSE SYRUP 20 GM/30 ML UDC PO STA (14:18)
--- NOTE | 2020-07-05 14:40 | History & Physical Report ---
Date of Service July 05, 2020 Assessment & Plan (1) Hepatic encephalopathy: (2) Hyperammonemia: (3) Cirrhosis of liver not due to alcohol: (4) Generalized weakness: (5) Insulin dependent diabetes mellitus: (6) GERD (gastroesophageal reflux disease): (7) HTN (hypertension): (8) CAD (coronary artery disease): (9) Dyslipidemia: (10) Aortic stenosis: (11) CKD (chronic kidney disease), stage III: Patient will be on lactulose, monitor daily labs, he has been placed under observation, low-sodium diet. ROS-unreliable review of systems Physical Exam Gen-AAO x 1, NAD, Afebrile, pleasant and confused Head-NCAT, EOMI, PERRLA, Anicteric Sclera, No Posterior Pharyngeal Erythema Neck-Supple, No JVD, No Thyromegaly, No Masses, No LAD, No Bruits Lungs-Clear to Auscultation Bilaterally, No Rales, No Rhonchi, No Wheezing, No Crepitus Chest-No S4, +S1, +S2, No S3, No Murmurs, No Rubs, No Gallops, No Ectopy Abdomen-Soft, Bowel Sounds Present, Non Tender, Non Distended, No Hepatomegaly, No Splenomegaly, No Palpable Masses, No Rebound, No Rigidity, No Guarding Musculoskeletal-Full Range of Motion Bilaterally, No CVAT Extremities-No Cyanosis, No Clubbing, No Edema Nuero-Cranial Nerves II-XII grossly intact, Motor WNL, DTRs WNL, Strength WNL, Non Focal Psych-Normal Mood History of Present Illness Chief Complaint: Confusion Primary Care Provider: Duglas Evans MD 79-year-old male with a past medical history of anemia, nonalcoholic cirrhosis, anxiety, coronary artery disease, CKD stage III, diverticulosis, dyslipidemia, GERD, hepatic encephalopathy, hiatal hernia, hypertension, insulin-dependent diabetes, osteoarthritis, portal hypertension, and elevated LFTs who presents today with an ammonia level of 86 and confusion. He has not had many bowel movements in the last 24 to 48 hours. We will be placing him under observation, giving him lactulose and monitoring his ammonia level. Likely will get him home tomorrow. Allergies Allergy/AdvReac Type Severity Reaction Status Date / Time PRASHANT Inhibitors Allergy Severe ANGIOEDEMA Verified 07/05/20 12:46 from 10/10/11 ED adm lisinopril Allergy Severe Edema - Verified 07/05/20 12:46 face, lips and tongue simvastatin Allergy Unknown RASH, SORE Verified 07/05/20 12:46 ALL OVER. 2012: Uses Crestor Home Medications Home Medications Medication Instructions Recorded Confirmed Type empagliflozin 25 mg PO DAILY 01/14/19 07/05/20 History ferrous gluconate 324 mg PO BID 01/14/19 07/05/20 History folic acid 1 mg PO DAILY 01/14/19 07/05/20 History metoprolol tartrate 25 mg PO BID 01/14/19 07/05/20 History potassium chloride 20 meq PO DAILY 01/14/19 07/05/20 History rifaximin 550 mg PO BID 01/14/19 07/05/20 History tamsulosin 0.4 mg PO DAILY 01/14/19 07/05/20 History albuterol sulfate [Ventolin HFA] 2 puff INHALATION Q4H PRN 02/20/19 07/05/20 History fluticasone propionate [Flonase 1 spray INTRANASAL DAILY 02/20/19 07/05/20 History Allergy Relief] furosemide [Lasix] 20 mg PO DAILY 02/20/19 07/05/20 History lactulose 40 g PO TID 02/20/19 07/05/20 History magnesium oxide 400 mg PO BID 02/20/19 07/05/20 History nitroglycerin 0.4 mg SUBLINGUAL UD PRN 02/20/19 07/05/20 History ipratropium-albuterol 3 ml INHALATION QID 01/13/20 07/05/20 History Lantus Solostar U-100 Insulin 28 unit SUBCUT BID 03/16/20 07/05/20 History escitalopram oxalate 5 mg PO DAILY 05/08/20 07/05/20 History pantoprazole 40 mg PO BID 05/08/20 07/05/20 History acetaminophen [Tylenol] 650 mg PO Q4 PRN 06/19/20 07/05/20 History insulin aspart U-100 [Novolog 0 unit SUBCUT TID 06/19/20 07/05/20 History Flexpen U-100 Insulin] Past Med/Surg History Medical History Anemia Anxiety Aortic stenosis "severe on echo 04/2017" On 07/03/16 17:13 Cande Poon wrote "severe on echo 04/2016" CAD (coronary artery disease) "2009 - RCA stent 2012 - RCA stent restenosis, s/p AMOS to RCA" Cirrhosis of liver not due to alcohol CKD (chronic kidney disease), stage III Diverticulosis Dyslipidemia GERD (gastroesophageal reflux disease) Hepatic encephalopathy Hiatal hernia HTN (hypertension) Insulin dependent diabetes mellitus Osteoarthritis Portal hypertensive gastropathy Transaminitis Surgical History H/O hemorrhoidectomy History of cardiac catheterization NO STENTS History of colonoscopy History of lumbar laminectomy History of tooth extraction Family History Son Family history of diabetes mellitus Family/Other Family hx of colon cancer Social History Smoking Status: Former smoker Second Hand Exposure: Yes; Hx Alcohol Use: No Hx Substance Use: No Preferred Language: Czech Communication Ability: Effective 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: No Beliefs That Will Affect Care: None marital status: / Current Living Situation: Personal Care Facility Current Living Situation Comment: elisa How many Children do You have: 3 Feels Safe at Home: Yes Assistive Devices: Walker Results & Data Results & Data ([facility]) Vital Signs (Past 12 Hours) Vital Signs Temp Pulse Resp BP Pulse Ox 07/05/20 14:20 53 L 14 94 07/05/20 14:10 54 L 14 94 07/05/20 14:00 54 L 14 94/47 L 95 07/05/20 13:50 55 L 14 94 07/05/20 13:40 56 L 15 94 07/05/20 13:30 55 L 14 92/46 L 93 07/05/20 13:20 56 L 15 93 07/05/20 13:10 55 L 15 94 07/05/20 13:06 60 94 07/05/20 12:50 57 L 17 95 07/05/20 12:40 57 L 18 95 07/05/20 12:30 58 L 19 125/53 L 96 07/05/20 12:23 57 L 19 120/55 L 95 07/05/20 12:22 60 15 95 07/05/20 12:20 36.9 C 57 L 18 120/55 L 97 Allergies PRASHANT Inhibitors Allergy (Severe, Verified 07/05/20 12:46) ANGIOEDEMA from 10/10/11 ED adm lisinopril Allergy (Severe, Verified 07/05/20 12:46) Edema - face, lips and tongue simvastatin Allergy (Unknown, Verified 07/05/20 12:46) RASH, SORE ALL OVER. 2013: Uses Crestor Height/Weight/Isolation Height 5 ft 2 in Weight 78.1 kg CBC 07/05/20 07/05/20 07/05/20 12:35 12:35 12:35 WBC 4.16 L RBC 4.49 L Hgb 15.0 Hct 43.8 MCV 97.6 MCH 33.4 MCHC 34.2 RDW Std Deviation 59.5 H RDW Coeff of Adrian 16.7 H Plt Count 59 L MPV 12.2 H Neutrophils % (Manual) 66.9 Lymphocytes % (Manual) 6.1 Reactive Lymphs % (Man) 12.2 Monocytes % (Manual) 9.6 Eosinophils % (Manual) 5.2 Neutrophils # (Manual) 2.78 Total Absolute Neuts 2.78 Lymphocytes # (Manual) 0.25 L Reactive Lymphs # 0.51 Total Abs Lymphocytes 0.76 L Monocytes # (Manual) 0.40 Eosinophils # (Manual) 0.22 RBC Morphology Unremarkable PT 11.8 INR 1.1 Sodium 142 Potassium 4.2 Chloride 110 H Carbon Dioxide 26 Anion Gap 6.0 BUN 9 Creatinine 1.05 Est Cr Clr Drug Dosing 49.9 Est GFR ( Amer) 76.8 Est GFR (Non-Af Amer) 66.3 BUN/Creatinine Ratio 8.2 L Glucose 166 H POC Glucose Calcium 9.1 Magnesium 2.4 Total Bilirubin 1.4 H AST 68 H ALT 34 Alkaline Phosphatase 305 H Ammonia Troponin I < 0.015 Total Protein 6.4 Albumin 2.9 L Globulin 3.5 Albumin/Globulin Ratio 0.8 L TSH 3.950 Specimen Hemolysis 07/05/20 07/05/20 07/05/20 12:35 12:42 13:39 WBC RBC Hgb Hct MCV MCH MCHC RDW Std Deviation RDW Coeff of Adrian Plt Count MPV Neutrophils % (Manual) Lymphocytes % (Manual) Reactive Lymphs % (Man) Monocytes % (Manual) Eosinophils % (Manual) Neutrophils # (Manual) Total Absolute Neuts Lymphocytes # (Manual) Reactive Lymphs # Total Abs Lymphocytes Monocytes # (Manual) Eosinophils # (Manual) RBC Morphology PT INR Sodium Potassium Chloride Carbon Dioxide Anion Gap BUN Creatinine Est Cr Clr Drug Dosing Est GFR ( Amer) Est GFR (Non-Af Amer) BUN/Creatinine Ratio Glucose POC Glucose 151 H Calcium Magnesium Total Bilirubin AST ALT Alkaline Phosphatase Ammonia 86.0 H Troponin I Total Protein Albumin Globulin Albumin/Globulin Ratio TSH Specimen Hemolysis Chemistry 07/05/20 12:35 Sodium 142 Potassium 4.2 Chloride 110 H Carbon Dioxide 26 Anion Gap 6.0 BUN 9 Creatinine 1.05 Glucose 166 H (1) HTN (hypertension) Hypertension type: unspecified Qualified Code(s): I10 - Essential (primary) hypertension (2) Aortic stenosis Cardiac valve disease etiology: etiology unspecified Qualified Code(s): I35.0 - Nonrheumatic aortic (valve) stenosis
[2020-07-05] MEDS ORDERED: SODIUM CHLORIDE 0.9% 500 ML IV ONE (14:42)
[2020-07-05] MEDS ORDERED: GLUCOSE 10 TABS/TUBE PO PRN (15:53)
[2020-07-05] MEDS ORDERED: GLUCOSE 40% GEL 15 GM TUBE PO PRN (15:53)
[2020-07-05] MEDS ORDERED: ACETAMINOPHEN 325 MG TAB PO PRN (15:53)
[2020-07-05] MEDS ORDERED: ONDANSETRON INJ 2 MG/ML 2 ML VIAL IV PRN (15:53)
[2020-07-05] MEDS ORDERED: NITROGLYCERIN SL 0.4 MG/TAB TAB SL PRN (15:53)
[2020-07-05] MEDS ORDERED: DEXTROSE 50% 50 ML SYRINGE IV PRN (15:53)
[2020-07-05] MEDS ORDERED: CARBOHYDRATES FOR HYPOGLYCEMIA PO PRN (15:53)
[2020-07-05] MEDS ORDERED: ALBUTEROL HFA 8 GM INHALER INH PRN (15:53)
[2020-07-05] MEDS ORDERED: GLUCAGON FOR INJ 1 MG VIAL SQ PRN (15:53)
[2020-07-05] MEDS ORDERED: PHARMACY GLYCEMIC MGMT CONSULT PRN (16:04)
[2020-07-05] MEDS: INSULIN ASPART 100 UNITS/ML 3 ML PEN SC SCH ×2 (18:48→22:06)
[2020-07-05] MEDS: ALBUT/IPRATROP 3MG/0.5MG NEB 3 ML VIAL INH SCH (19:42)
[2020-07-05] MEDS: LACTULOSE SYRUP 20 GM/30 ML UDC PO SCH (20:30)
[2020-07-05] MEDS: FERROUS GLUCONATE 324 MG TAB PO SCH (20:32)
[2020-07-05] MEDS: HEPARIN SOD 5,000 UNIT/0.5 ML VIAL SQ SCH (20:33)
[2020-07-05] MEDS: METOPROLOL TARTRATE 25 MG TAB PO SCH (20:34)
[2020-07-05] MEDS: MAGNESIUM OXIDE 400 MG TAB PO SCH (20:35)
[2020-07-05] MEDS: PANTOprazole 40 MG TAB PO SCH (20:35)
[2020-07-05] MEDS: rifAXIMin 550 MG TABLET PO SCH (20:36)
[2020-07-05] MEDS ORDERED: INSULIN GLARGINE SOLOSTAR 100 UNITS/ML 3 ML PEN SQ SCH (21:00)
[2020-07-06 06:57] LABS: Hematocrit (blood only) 40.8 % (42-52); Hemoglobin 13.7 g/dL (14.0-18.0); Mean Corpuscular Hemoglobin 32.7 pg (25-34); Mean Corpuscular Hgb Conc 33.6 g/dL (32-36); Mean Corpuscular Volume 97.4 fL (80-100); RDW Coefficient of Variation 16.9 % (11.5-14.5); RDW Standard Deviation 59.9 fL (36.4-46.3); Red Blood Count 4.19 M/uL (4.7-6.1); White Blood Count 4.28 K/uL (4.8-10.8)
[2020-07-06 07:03] LABS: Mean Platelet Volume 11.6 fL (7.4-10.4); Platelet Count 54 K/uL (130-400)
[2020-07-06 07:13] LABS: INR 1.2 (0.9-1.1); Prothrombin Time 12.4 Seconds (9.0-12.0)
[2020-07-06 07:29] LABS: Albumin Level 2.5 gm/dl (3.4-5.0); BUN Creatinine Ratio 9.5 (10-20); Calcium 8.9 mg/dl (8.5-10.1); Creatinine Clr Calc Pharmacy 55.8 ml/min; Est GFR (African American) 87.8; Est GFR (Non-African American) 75.7; Potassium 3.7 mmol/L (3.5-5.1)
[2020-07-06] MEDS: ALBUT/IPRATROP 3MG/0.5MG NEB 3 ML VIAL INH SCH (07:29)
[2020-07-06 07:32] LABS: Albumin Globulin Ratio 0.8 (0.9-2); Bilirubin,Total 1.2 mg/dl (0.2-1); Globulin 3.1 gm/dl (2.5-4.0); Total Protein 5.6 gm/dl (6.4-8.2)
[2020-07-06] MEDS ORDERED: ALBUT/IPRATROP 3MG/0.5MG NEB 3 ML VIAL INH PRN (08:58)
[2020-07-06] MEDS ORDERED: NON-FORMULARY MEDICATION (Empagliflozin 25 MG) PO SCH (09:00)
[2020-07-06] MEDS: LACTULOSE SYRUP 20 GM/30 ML UDC PO SCH ×3 (09:52→21:12)
[2020-07-06] MEDS: FOLIC ACID 1 MG TAB PO SCH (09:53)
[2020-07-06] MEDS: TAMSULOSIN HCL 0.4 MG CAP PO SCH (09:53)
[2020-07-06] MEDS: rifAXIMin 550 MG TABLET PO SCH ×2 (09:53→21:13)
[2020-07-06] MEDS: POTASSIUM CHLORIDE 20 MEQ TABCR PO SCH (09:53)
[2020-07-06] MEDS: FUROSEMIDE 20 MG TAB PO SCH (09:53)
[2020-07-06] MEDS: MAGNESIUM OXIDE 400 MG TAB PO SCH ×2 (09:54→21:12)
[2020-07-06] MEDS: METOPROLOL TARTRATE 25 MG TAB PO SCH ×2 (09:54→21:12)
[2020-07-06] MEDS: PANTOprazole 40 MG TAB PO SCH ×2 (09:54→21:13)
[2020-07-06] MEDS: ESCITALOPRAM OXALATE ORAL SOLN 5 MG/5 ML UDP PO SCH (09:54)
[2020-07-06] MEDS: FLUTICASONE PROPIONATE NA SPR 16 GM BTL SCH (09:55)
[2020-07-06] MEDS: HEPARIN SOD 5,000 UNIT/0.5 ML VIAL SQ SCH ×2 (09:55→21:13)
[2020-07-06] MEDS: FERROUS GLUCONATE 324 MG TAB PO SCH ×2 (09:56→21:13)
[2020-07-06] MEDS: INSULIN ASPART 100 UNITS/ML 3 ML PEN SC SCH ×4 (09:56→21:14)
--- NOTE | 2020-07-06 10:10 | Electrocardiogram Report ---
Test Reason : Blood Pressure : / mmHG Vent. Rate : 057 BPM Atrial Rate : 057 BPM P-R Int : 158 ms QRS Dur : 080 ms QT Int : 480 ms P-R-T Axes : 025 081 075 degrees QTc Int : 467 ms Sinus bradycardia Anteroseptal infarct (cited on or before 14-JAN-2019) Abnormal ECG When compared with ECG of 19-JUN-2020 15:27, Change in QRS axis Confirmed by Rosendo Cline ([id number]) on 07/06/2020 10:10:18 AM Referred By: Damion Regan [place] Confirmed By:Rosendo Cline
--- NOTE | 2020-07-06 13:02 | Hospitalist Progress Note ---
Date of Service July 06, 2020 Assessment & Plan (1) Hepatic encephalopathy: History of nonalcoholic cirrhosis with recurrent admissions for hepatic encephalopathy Recently discharged from the hospital following an attack of acute confusion Noted to have minimal or no bowel movement for the last 24 to 48 hours Admitted yesterday with acute confusion secondary to hepatic encephalopathy Ammonia level of 86 on admission and remains more than 100 as of today but clinically he has been feeling a lot better Lactulose has been increased to 60 mg 3 times daily to have 2-3 bowel movement daily Continue rifaximin Likely be discharged tomorrow (2) Hyperammonemia: (3) Cirrhosis of liver not due to alcohol: (4) Generalized weakness: (5) Insulin dependent diabetes mellitus: (6) GERD (gastroesophageal reflux disease): (7) HTN (hypertension): (8) CAD (coronary artery disease): (9) Dyslipidemia: (10) Aortic stenosis: (11) CKD (chronic kidney disease), stage III: Monitor PRP All of his other comorbid conditions remain stable Monitor his hemoglobin and liver and kidney function We will get PT and OT evaluation Possible discharge tomorrow or day after Admission and Anticipated Discharge Date Admission Date: July 05, 2020 Subjective 07/06/2020 The patient was seen and examined in medical floor He was admitted with hepatic encephalopathy with history of cirrhosis and recurrent encephalopathy Noted to have less on no bowel movement for the last 24 to 48 hours Has been feeling a lot better since admission the bowel is moving Review of Systems Review of Systems: All systems reviewed and are unremarkable except as noted below Neurologic: + confusion (Seems to have no confusion) Generally weak Physical Exam Physical Exam: Sitting on a chair without any acute distress Constitutional: well developed, well nourished and + obese; no acute distress and not ill appearing Eyes: PERRL, conjunctivae normal, anicteric sclerae ENMT: external ear and nose normal, oropharynx normal Neck: trachea midline, no thyromegaly Respiratory: normal respiratory effort; no respiratory distress Auscultation: lungs clear to auscultation bilaterally Cardiovascular: Rate/Rhythm: regular rate and regular rhythm Heart Sounds: no murmur Gastrointestinal (Abdomen): Inspection/Auscultation: abdomen normal to inspection, + abdomen distended (Minimal distention without any tenderness and/or evidence of ascites) and normal bowel sounds Percussion/Palpation: abdomen soft; abdomen nontender Musculoskeletal: No acute arthritis involving any joint Neurologic: moves all extremities; no focal motor deficits Motor/Sensory: no tremor Presence of hepatic flap Psychiatric: Orientation: alert Insight: + limited insight Judgement: + limited judgement Lymphatic: no cervical or axillary lymphadenopathy Results & Data Results & Data ([facility]) Vital Signs (Past 12 Hours) Vital Signs Temp Pulse Resp BP Pulse Ox 07/06/20 07:36 36.5 C 53 L 18 152/64 H 100 07/06/20 07:29 52 L 16 97 Laboratory Results Short CBC 07/05/20 07/06/20 Range/Units 12:35 06:45 WBC 4.16 L 4.28 L (4.8-10.8) K/uL Hgb 15.0 13.7 L (14.0-18.0) g/dL Hct 43.8 40.8 L (42-52) % Plt Count 59 L 54 L (130-400) K/uL BMP 07/05/20 07/06/20 12:35 06:45 Sodium 142 142 Potassium 4.2 3.7 Chloride 110 H 111 H Carbon Dioxide 26 25 BUN 9 9 Creatinine 1.05 0.94 Glucose 166 H 93 Calcium 9.1 8.9 Cardiac Enzymes 07/05/20 Range/Units 12:35 Troponin I < 0.015 (0-0.045) ng/ml Liver Function 07/05/20 07/06/20 Range/Units 12:35 06:45 Total Bilirubin 1.4 H 1.2 H (0.2-1) mg/dl AST 68 H 49 H (15-37) U/L ALT 34 29 (12-78) U/L Alkaline Phosphatase 305 H 226 H (45-117) U/L Albumin 2.9 L 2.5 L (3.4-5.0) gm/dl Medications Administered Current Inpatient Medications Acetaminophen (Acetaminophen 325 Mg Tab) 650 mg PO Q4 PRN PRN Reason: Fever Or Pain Stop: 08/04/20 15:52 Albuterol (Albuterol Hfa 8 Gm Inhaler) 2 puffs INH Q4H PRN PRN Reason: SHORT OF BREATH Stop: 08/04/20 15:52 Albuterol (Albut/Ipratrop 3mg/0.5mg Neb 3 Ml Vial) 3 ml INH QIDR PRN PRN Reason: Shortness Of Breath Or Wheezing Stop: 08/04/20 18:59 Dextrose (Dextrose 50% 50 Ml Syringe) 25 - 50 ml IV UD PRN; Protocol PRN Reason: Hypoglycemia Protocol Stop: 08/04/20 15:52 Escitalopram Oxalate (Escitalopram Oxalate Oral Soln 5 Mg/5 Ml Udp) 5 mg PO DAILY GOSIA Stop: 08/05/20 08:59 Last Admin: 07/06/20 09:54 Dose: 5 mg Documented by: Ferrous Gluconate (Ferrous Gluconate 324 Mg Tab) 324 mg PO BID GOSIA Stop: 08/04/20 20:59 Last Admin: 07/06/20 09:56 Dose: 324 mg Documented by: Fluticasone Propionate (Fluticasone Propionate Na Spr 16 Gm Btl) 1 sprays NA DAILY GOSIA Stop: 08/05/20 08:59 Last Admin: 07/06/20 09:55 Dose: 1 sprays Documented by: Folic Acid (Folic Acid 1 Mg Tab) 1 mg PO DAILY GOSIA Stop: 08/05/20 08:59 Last Admin: 07/06/20 09:53 Dose: 1 mg Documented by: Furosemide (Furosemide 20 Mg Tab) 20 mg PO DAILY GOSIA Stop: 08/05/20 08:59 Last Admin: 07/06/20 09:53 Dose: 20 mg Documented by: Glucagon (Glucagon For Inj 1 Mg Vial) 1 mg SQ UD PRN; Protocol PRN Reason: Hypoglycemia Protocol Stop: 08/04/20 15:52 Glucose (Glucose 10 Tabs/Tube) 4 - 8 tabs PO UD PRN; Protocol PRN Reason: Hypoglycemia Protocol Stop: 08/04/20 15:52 Glucose (Glucose 40% Gel 15 Gm Tube) 15 - 30 gm PO UD PRN; Protocol PRN Reason: Hypoglycemia Protocol Stop: 08/04/20 15:52 Heparin Sodium (Porcine) (Heparin Sod 5,000 Unit/0.5 Ml Vial) 5,000 units SQ Q12 GOSIA Stop: 08/04/20 20:59 Last Admin: 07/06/20 09:55 Dose: 5,000 units Documented by: Insulin Aspart (Insulin Aspart 100 Units/Ml 3 Ml Pen) 0 units SC ACHS [facility]; Protocol Stop: 08/04/20 16:29 Last Admin: 07/06/20 09:56 Dose: 2 units Documented by: Insulin Glargine (Insulin Glargine Solostar 100 Units/Ml 3 Ml Pen) 15 units SQ BID [facility]; Protocol Stop: 08/05/20 12:29 Lactulose (Lactulose Syrup 20 Gm/30 Ml Udc) 60 gm PO TID [facility] Stop: 08/04/20 20:59 Last Admin: 07/06/20 09:52 Dose: 60 gm Documented by: Magnesium Oxide (Magnesium Oxide 400 Mg Tab) 400 mg PO BID [facility] Stop: 08/04/20 20:59 Last Admin: 07/06/20 09:54 Dose: 400 mg Documented by: Metoprolol Tartrate (Metoprolol Tartrate 25 Mg Tab) 25 mg PO BID GOSIA Stop: 08/04/20 20:59 Last Admin: 07/06/20 09:54 Dose: 25 mg Documented by: Miscellaneous (Carbohydrates For Hypoglycemia ) 15 - 30 gm PO UD PRN PRN Reason: Hypoglycemia Protocol Stop: 08/04/20 15:52 Miscellaneous Information (Pharmacy Glycemic Mgmt Consult) 1 ea N/A UD PRN; Protocol PRN Reason: Consult Stop: 08/04/20 16:03 Nitroglycerin (Nitroglycerin Sl 0.4 Mg/Tab Tab) 0.4 mg SL UD PRN PRN Reason: Chest Pain Stop: 08/04/20 15:52 Ondansetron HCl (Ondansetron Inj 2 Mg/Ml 2 Ml Vial) 4 mg IV Q6H PRN PRN Reason: Nausea Stop: 08/04/20 15:52 Pantoprazole Sodium (Pantoprazole 40 Mg Tab) 40 mg PO BID [facility] Stop: 08/04/20 20:59 Last Admin: 07/06/20 09:54 Dose: 40 mg Documented by: Potassium Chloride (Potassium Chloride 20 Meq Tabcr) 20 meq PO DAILY [facility] Stop: 08/05/20 08:59 Last Admin: 07/06/20 09:53 Dose: 20 meq Documented by: Rifaximin (Rifaximin 550 Mg Tablet) 550 mg PO BID [facility] Stop: 08/04/20 20:59 Last Admin: 07/06/20 09:53 Dose: 550 mg Documented by: Tamsulosin HCl (Tamsulosin Hcl 0.4 Mg Cap) 0.4 mg PO DAILY [facility] Stop: 08/05/20 08:59 Last Admin: 07/06/20 09:53 Dose: 0.4 mg Documented by: (1) HTN (hypertension) Hypertension type: unspecified Qualified Code(s): I10 - Essential (primary) hypertension (2) Aortic stenosis Cardiac valve disease etiology: etiology unspecified Qualified Code(s): I35.0 - Nonrheumatic aortic (valve) stenosis
[2020-07-06] MEDS: INSULIN GLARGINE SOLOSTAR 100 UNITS/ML 3 ML PEN SQ SCH ×2 (13:13→21:14)
--- NOTE | 2020-07-06 13:44 | Pharmacy Report ---
Glycemic Control Consultation - Date of Service July 06, 2020 - Scope Scope: Glycemic Pharmacist consulted for glycemic control and to write orders per [facility] inpatient glycemic control protocol. - Objective Weight: 78.1 kg Accuchecks BSG (last 24hrs): 07/05/20 07/05/20 07/06/20 18:04 21:33 06:45 Glucose 93 POC Glucose 121 H 199 H 07/06/20 07/06/20 08:17 12:07 Glucose POC Glucose 96 217 H Laboratory Data (last 24hrs): 07/06/20 06:45 Potassium 3.7 Carbon Dioxide 25 Anion Gap 6.0 Creatinine 0.94 Est Cr Clr Drug Dosing 55.8 - Recent Pertinent Medications Outpatient Anti-diabetic Regimen: * Lantus 28 units BID * Novolog sliding scale * Jardiance 25mg QD * A1c = 6.5 % 06/20/20 Risk Factors for Insulin Resistance: * Diet: Type 2 DM - Assessment & Plan Assessment & Plan: ASSESSMENT: * 79 year old with recurrent admission for hepatic encephalopathy (nonalcoholic cirrhosis). Type 2 diabetic on orals and insulin at home. * Will begin with reduced home dose of Lantus, patient usually does not require as much insulin as inpatient, and CF/CR similar to previous admissions. * Likely discharge tomorrow. PLAN FOR INPATIENT GLYCEMIC CONTROL: * Holding outpatient oral diabetes medications * Basal insulin * Lantus 15 units SQ BID * Bolus insulin * NovoLog per scale ACHS or Q6hrs while NPO * Goal Range: Low 110 mg/dL - High 140 mg/dL * Correction Factor: 25 mg/dL/unit * Nutritional / Prandial insulin per carb ratio of 1 unit per 9 grams CHO consumed * Please note that the plan above was derived based on current level of insulin resistance and hospital stress. These recommendations are appropriate for inpatient admission only. Plan of care upon discharge will need to be reassessed to avoid potential outpatient hypo/hyperglycemia. Thank you.
[2020-07-07 07:06] LABS: Hemoglobin 13.9 g/dL (14.0-18.0); Mean Corpuscular Hemoglobin 32.9 pg (25-34); Mean Corpuscular Hgb Conc 33.9 g/dL (32-36); Mean Corpuscular Volume 97.2 fL (80-100); RDW Coefficient of Variation 16.7 % (11.5-14.5); RDW Standard Deviation 58.9 fL (36.4-46.3); Red Blood Count 4.22 M/uL (4.7-6.1); White Blood Count 4.44 K/uL (4.8-10.8)
[2020-07-07 07:08] LABS: Mean Platelet Volume 11.4 fL (7.4-10.4); Platelet Count 55 K/uL (130-400)
[2020-07-07 07:28] LABS: Basophils # (auto) 0.03 K/uL (0-0.2); Basophils % (auto) 0.7 %; Eosinophils # (auto) 0.38 K/uL (0-0.5); Eosinophils % (auto) 8.6 %; Immature Granulocytes # (auto) 0.01 K/uL (0.00-0.02); Immature Granulocytes % (auto) 0.2 %; Lymphocytes # (auto) 0.84 K/uL (1.2-3.4); Lymphocytes % (auto) 18.9 %; Monocytes # (auto) 0.71 K/uL (0.11-0.59); Neutrophils # (auto) 2.47 K/uL (1.4-6.5); Neutrophils % (auto) 55.6 %
[2020-07-07 07:31] LABS: Albumin Level 2.5 gm/dl (3.4-5.0); BUN Creatinine Ratio 9.1 (10-20); Calcium 9.1 mg/dl (8.5-10.1); Creatinine Clr Calc Pharmacy 44.8 ml/min; Est GFR (African American) 67.4; Est GFR (Non-African American) 58.1; Potassium 3.7 mmol/L (3.5-5.1)
[2020-07-07 07:34] LABS: Albumin Globulin Ratio 0.8 (0.9-2); Bilirubin,Total 1.2 mg/dl (0.2-1); Total Protein 5.5 gm/dl (6.4-8.2)
[2020-07-07] MEDS: MAGNESIUM OXIDE 400 MG TAB PO SCH ×2 (08:20→21:42)
[2020-07-07] MEDS: METOPROLOL TARTRATE 25 MG TAB PO SCH ×2 (08:20→21:42)
[2020-07-07] MEDS: rifAXIMin 550 MG TABLET PO SCH ×2 (08:21→21:42)
[2020-07-07] MEDS: PANTOprazole 40 MG TAB PO SCH ×2 (08:21→21:42)
[2020-07-07] MEDS: FUROSEMIDE 20 MG TAB PO SCH (08:21)
[2020-07-07] MEDS: ESCITALOPRAM OXALATE ORAL SOLN 5 MG/5 ML UDP PO SCH (08:22)
[2020-07-07] MEDS: POTASSIUM CHLORIDE 20 MEQ TABCR PO SCH (08:22)
[2020-07-07] MEDS: FERROUS GLUCONATE 324 MG TAB PO SCH ×2 (08:22→21:42)
[2020-07-07] MEDS: FOLIC ACID 1 MG TAB PO SCH (08:22)
[2020-07-07] MEDS: TAMSULOSIN HCL 0.4 MG CAP PO SCH (08:23)
[2020-07-07] MEDS: FLUTICASONE PROPIONATE NA SPR 16 GM BTL SCH (08:24)
[2020-07-07] MEDS: LACTULOSE SYRUP 20 GM/30 ML UDC PO SCH ×3 (08:24→21:38)
[2020-07-07] MEDS: INSULIN GLARGINE SOLOSTAR 100 UNITS/ML 3 ML PEN SQ SCH ×2 (08:54→21:46)
[2020-07-07] MEDS: HEPARIN SOD 5,000 UNIT/0.5 ML VIAL SQ SCH ×2 (08:57→21:46)
[2020-07-07] MEDS: INSULIN ASPART 100 UNITS/ML 3 ML PEN SC SCH ×4 (08:58→21:46)
--- NOTE | 2020-07-07 15:44 | Hospitalist Progress Note ---
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 Recently discharged from the hospital following an attack of acute confusion Noted to have minimal or no bowel movement for the last 24 to 48 hours Admitted yesterday with acute confusion secondary to hepatic encephalopathy Ammonia level of 86 on admission and remains more than 100 as of today but clinically he has been feeling a lot better Lactulose has been increased to 60 mg 3 times daily to have 2-3 bowel movement daily Continue rifaximin Clinically a lot better without any acute confusion and the ammonia level has b een almost normalized We will get PT and OT evaluation and possible discharge tomorrow (2) Hyperammonemia: Ammonia level has improved a lot (3) Cirrhosis of liver not due to alcohol: (4) Generalized weakness: We will get PT and OT evaluation (5) Insulin dependent diabetes mellitus: (6) GERD (gastroesophageal reflux disease): (7) HTN (hypertension): (8) CAD (coronary artery disease): (9) Dyslipidemia: (10) Aortic stenosis: (11) CKD (chronic kidney disease), stage III: Monitor PRP All of his other comorbid conditions remain stable Monitor his hemoglobin and liver and kidney function We will get PT and OT evaluation Possible discharge tomorrow Admission and Anticipated Discharge Date Admission Date: July 07, 2020 Subjective 07/06/2020 The patient was seen and examined in medical floor He was admitted with hepatic encephalopathy with history of cirrhosis and recurrent encephalopathy Noted to have less on no bowel movement for the last 24 to 48 hours Has been feeling a lot better since admission the bowel is moving 07/07/2020 The patient was seen and examined in medical floor He has been much better today and he is at his baseline No more increasing confusion Denies any fever and/or chills His bowel has been moving at least 2 times a day Review of Systems Review of Systems: All systems reviewed and are unremarkable except as noted below Neurologic: + confusion (Seems to have no confusion) Generally weak Physical Exam Physical Exam: Sitting on a chair without any acute distress Constitutional: well developed, well nourished and + obese; no acute distress and not ill appearing Eyes: PERRL, conjunctivae normal, anicteric sclerae ENMT: external ear and nose normal, oropharynx normal Neck: trachea midline, no thyromegaly Respiratory: normal respiratory effort; no respiratory distress Auscultation: lungs clear to auscultation bilaterally Cardiovascular: Rate/Rhythm: regular rate and regular rhythm Heart Sounds: no murmur Gastrointestinal (Abdomen): Inspection/Auscultation: abdomen normal to inspection, + abdomen distended (Minimal distention without any tenderness and/or evidence of ascites) and normal bowel sounds Percussion/Palpation: abdomen soft; abdomen nontender Neurologic: moves all extremities; no focal motor deficits Motor/Sensory: no tremor Psychiatric: Orientation: alert Insight: + limited insight Judgement: + limited judgement Lymphatic: no cervical or axillary lymphadenopathy Results & Data Results & Data ([facility]) Vital Signs (Past 12 Hours) Vital Signs Temp Pulse Resp BP BP Pulse Ox 07/07/20 15:14 36.3 C L 59 L 16 100/61 95 07/07/20 07:37 36.5 C 83 20 173/99 H 97 07/07/20 07:33 36.7 C 53 L 16 117/66 92 Laboratory Results Short CBC 07/07/20 Range/Units 06:57 WBC 4.44 L (4.8-10.8) K/uL Hgb 13.9 L (14.0-18.0) g/dL Hct 41.0 L (42-52) % Plt Count 55 L (130-400) K/uL BMP 07/07/20 06:57 Sodium 142 Potassium 3.7 Chloride 111 H Carbon Dioxide 26 BUN 11 Creatinine 1.17 Glucose 117 H Calcium 9.1 Liver Function 07/07/20 Range/Units 06:57 Total Bilirubin 1.2 H (0.2-1) mg/dl AST 47 H (15-37) U/L ALT 30 (12-78) U/L Alkaline Phosphatase 197 H (45-117) U/L Albumin 2.5 L (3.4-5.0) gm/dl Medications Administered Current Inpatient Medications Acetaminophen (Acetaminophen 325 Mg Tab) 650 mg PO Q4 PRN PRN Reason: Fever Or Pain Stop: 08/04/20 15:52 Albuterol (Albuterol Hfa 8 Gm Inhaler) 2 puffs INH Q4H PRN PRN Reason: SHORT OF BREATH Stop: 08/04/20 15:52 Albuterol (Albut/Ipratrop 3mg/0.5mg Neb 3 Ml Vial) 3 ml INH QIDR PRN PRN Reason: Shortness Of Breath Or Wheezing Stop: 08/04/20 18:59 Dextrose (Dextrose 50% 50 Ml Syringe) 25 - 50 ml IV UD PRN; Protocol PRN Reason: Hypoglycemia Protocol Stop: 08/04/20 15:52 Escitalopram Oxalate (Escitalopram Oxalate Oral Soln 5 Mg/5 Ml Udp) 5 mg PO DAILY [facility] Stop: 08/05/20 08:59 Last Admin: 07/07/20 08:22 Dose: 5 mg Documented by: Ferrous Gluconate (Ferrous Gluconate 324 Mg Tab) 324 mg PO BID [facility] Stop: 08/04/20 20:59 Last Admin: 07/07/20 08:22 Dose: 324 mg Documented by: Fluticasone Propionate (Fluticasone Propionate Na Spr 16 Gm Btl) 1 sprays NA DAILY [facility] Stop: 08/05/20 08:59 Last Admin: 07/07/20 08:24 Dose: 1 sprays Documented by: Folic Acid (Folic Acid 1 Mg Tab) 1 mg PO DAILY [facility] Stop: 08/05/20 08:59 Last Admin: 07/07/20 08:22 Dose: 1 mg Documented by: Furosemide (Furosemide 20 Mg Tab) 20 mg PO DAILY [facility] Stop: 08/05/20 08:59 Last Admin: 07/07/20 08:21 Dose: 20 mg Documented by: Glucagon (Glucagon For Inj 1 Mg Vial) 1 mg SQ UD PRN; Protocol PRN Reason: Hypoglycemia Protocol Stop: 08/04/20 15:52 Glucose (Glucose 10 Tabs/Tube) 4 - 8 tabs PO UD PRN; Protocol PRN Reason: Hypoglycemia Protocol Stop: 08/04/20 15:52 Glucose (Glucose 40% Gel 15 Gm Tube) 15 - 30 gm PO UD PRN; Protocol PRN Reason: Hypoglycemia Protocol Stop: 08/04/20 15:52 Heparin Sodium (Porcine) (Heparin Sod 5,000 Unit/0.5 Ml Vial) 5,000 units SQ Q12 [facility] Stop: 08/04/20 20:59 Last Admin: 07/07/20 08:57 Dose: 5,000 units Documented by: Insulin Aspart (Insulin Aspart 100 Units/Ml 3 Ml Pen) 0 units SC ACHS [facility]; Protocol Stop: 08/04/20 16:29 Last Admin: 07/07/20 12:47 Dose: 9 units Documented by: Insulin Glargine (Insulin Glargine Solostar 100 Units/Ml 3 Ml Pen) 15 units SQ BID [facility]; Protocol Stop: 08/05/20 12:29 Last Admin: 07/07/20 08:54 Dose: 15 units Documented by: Lactulose (Lactulose Syrup 20 Gm/30 Ml Udc) 60 gm PO TID [facility] Stop: 08/04/20 20:59 Last Admin: 07/07/20 14:18 Dose: 60 gm Documented by: Magnesium Oxide (Magnesium Oxide 400 Mg Tab) 400 mg PO BID [facility] Stop: 08/04/20 20:59 Last Admin: 07/07/20 08:20 Dose: 400 mg Documented by: Metoprolol Tartrate (Metoprolol Tartrate 25 Mg Tab) 25 mg PO BID [facility] Stop: 08/04/20 20:59 Last Admin: 07/07/20 08:20 Dose: 25 mg Documented by: Miscellaneous (Carbohydrates For Hypoglycemia ) 15 - 30 gm PO UD PRN PRN Reason: Hypoglycemia Protocol Stop: 08/04/20 15:52 Miscellaneous Information (Pharmacy Glycemic Mgmt Consult) 1 ea N/A UD PRN; Protocol PRN Reason: Consult Stop: 08/04/20 16:03 Nitroglycerin (Nitroglycerin Sl 0.4 Mg/Tab Tab) 0.4 mg SL UD PRN PRN Reason: Chest Pain Stop: 08/04/20 15:52 Ondansetron HCl (Ondansetron Inj 2 Mg/Ml 2 Ml Vial) 4 mg IV Q6H PRN PRN Reason: Nausea Stop: 08/04/20 15:52 Pantoprazole Sodium (Pantoprazole 40 Mg Tab) 40 mg PO BID [facility] Stop: 08/04/20 20:59 Last Admin: 07/07/20 08:21 Dose: 40 mg Documented by: Potassium Chloride (Potassium Chloride 20 Meq Tabcr) 20 meq PO DAILY [facility] Stop: 08/05/20 08:59 Last Admin: 07/07/20 08:22 Dose: 20 meq Documented by: Rifaximin (Rifaximin 550 Mg Tablet) 550 mg PO BID [facility] Stop: 08/04/20 20:59 Last Admin: 07/07/20 08:21 Dose: 550 mg Documented by: Tamsulosin HCl (Tamsulosin Hcl 0.4 Mg Cap) 0.4 mg PO DAILY [facility] Stop: 08/05/20 08:59 Last Admin: 07/07/20 08:23 Dose: 0.4 mg Documented by: (1) HTN (hypertension) Hypertension type: unspecified Qualified Code(s): I10 - Essential (primary) hypertension (2) Aortic stenosis Cardiac valve disease etiology: etiology unspecified Qualified Code(s): I35.0 - Nonrheumatic aortic (valve) stenosis
[2020-07-07 15:58] LABS: Appearance Urine Clear (Clear); Bilirubin Urine Negative (Negative); Blood Urine Negative (Negative); Color Urine Yellow; Glucose Urine UA 3+ (Negative); Ketones Urine Negative (Negative); Leukocyte Esterase Urine Negative (Negative); Nitrite Urine Negative (Negative); Protein Urine Negative (Negative); Specific Gravity Urine 1.029 (1.000-1.030); Urobilinogen Urine Negative (Negative)
[2020-07-08 06:22] LABS: Hematocrit (blood only) 38.8 % (42-52); Hemoglobin 13.1 g/dL (14.0-18.0); Mean Corpuscular Hemoglobin 32.6 pg (25-34); Mean Corpuscular Hgb Conc 33.8 g/dL (32-36); Mean Corpuscular Volume 96.5 fL (80-100); RDW Coefficient of Variation 16.1 % (11.5-14.5); RDW Standard Deviation 56.5 fL (36.4-46.3); Red Blood Count 4.02 M/uL (4.7-6.1)
[2020-07-08 06:25] LABS: Mean Platelet Volume 11.1 fL (7.4-10.4); Platelet Count 52 K/uL (130-400)
[2020-07-08] MEDS: INSULIN ASPART 100 UNITS/ML 3 ML PEN SC SCH ×2 (09:32→13:26)
[2020-07-08] MEDS: INSULIN GLARGINE SOLOSTAR 100 UNITS/ML 3 ML PEN SQ SCH (09:33)
[2020-07-08] MEDS: HEPARIN SOD 5,000 UNIT/0.5 ML VIAL SQ SCH (09:34)
[2020-07-08] MEDS: MAGNESIUM OXIDE 400 MG TAB PO SCH (09:34)
[2020-07-08] MEDS: PANTOprazole 40 MG TAB PO SCH (09:34)
[2020-07-08] MEDS: FLUTICASONE PROPIONATE NA SPR 16 GM BTL SCH (09:34)
[2020-07-08] MEDS: METOPROLOL TARTRATE 25 MG TAB PO SCH (09:35)
[2020-07-08] MEDS: POTASSIUM CHLORIDE 20 MEQ TABCR PO SCH (09:35)
[2020-07-08] MEDS: rifAXIMin 550 MG TABLET PO SCH (09:35)
[2020-07-08] MEDS: FERROUS GLUCONATE 324 MG TAB PO SCH (09:35)
[2020-07-08] MEDS: FUROSEMIDE 20 MG TAB PO SCH (09:35)
[2020-07-08] MEDS: TAMSULOSIN HCL 0.4 MG CAP PO SCH (09:36)
[2020-07-08] MEDS: FOLIC ACID 1 MG TAB PO SCH (09:36)
[2020-07-08] MEDS: LACTULOSE SYRUP 20 GM/30 ML UDC PO SCH (09:36)
[2020-07-08] MEDS: ESCITALOPRAM OXALATE ORAL SOLN 5 MG/5 ML UDP PO SCH (09:36)
[2020-07-08] MEDS ORDERED: LACTULOSE 200 GM, WATER, STERILE IRRIG 700 ML, BARCODE IDENTIFIER 1 EA PR ONE (12:30)
--- NOTE | 2020-07-08 12:57 | Hospitalist Progress Note ---
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 Recently discharged from the hospital following an attack of acute confusion Noted to have minimal or no bowel movement for the last 24 to 48 hours Admitted yesterday with acute confusion secondary to hepatic encephalopathy Ammonia level of 86 on admission and remains more than 100 as of today but clinically he has been feeling a lot better Lactulose has been increased to 60 mg 3 times daily to have 2-3 bowel movement daily Continue rifaximin Clinically a lot better without any acute confusion and the ammonia level has b een almost normalized Appreciate PT and OT input and recommendation Clinically much better without any hepatic flap and the ammonia level has been normalized Bowel has been moving about 2 times a day He will be discharged to [facility] today Strongly advised to have at least 2 bowel movements a day (2) Hyperammonemia: Ammonia level has improved a lot (3) Cirrhosis of liver not due to alcohol: (4) Generalized weakness: We will get PT and OT evaluation Recommended back to personal residential (5) Insulin dependent diabetes mellitus: (6) GERD (gastroesophageal reflux disease): (7) HTN (hypertension): (8) CAD (coronary artery disease): (9) Dyslipidemia: (10) Aortic stenosis: (11) CKD (chronic kidney disease), stage III: Monitor PRP All of his other comorbid conditions remain stable Monitor his hemoglobin and liver and kidney function We will get PT and OT evaluation Will be discharged this afternoon Admission and Anticipated Discharge Date Admission Date: July 07, 2020 Subjective 07/06/2020 The patient was seen and examined in medical floor He was admitted with hepatic encephalopathy with history of cirrhosis and recurrent encephalopathy Noted to have less on no bowel movement for the last 24 to 48 hours Has been feeling a lot better since admission the bowel is moving 07/07/2020 The patient was seen and examined in medical floor He has been much better today and he is at his baseline No more increasing confusion Denies any fever and/or chills His bowel has been moving at least 2 times a day 07/08/2020 The patient was seen and examined in medical floor He remains stable as of today and denies any significant symptoms Remains generally weak Review of Systems Review of Systems: All systems reviewed and are unremarkable except as noted below Neurologic: + confusion (Seems to have no confusion) Generally weak Physical Exam Physical Exam: Sitting on a chair without any acute distress Constitutional: well developed, well nourished and + obese; no acute distress and not ill appearing Eyes: PERRL, conjunctivae normal, anicteric sclerae ENMT: external ear and nose normal, oropharynx normal Neck: trachea midline, no thyromegaly Respiratory: normal respiratory effort; no respiratory distress Auscultation: lungs clear to auscultation bilaterally Cardiovascular: Rate/Rhythm: regular rate and regular rhythm Heart Sounds: no murmur Gastrointestinal (Abdomen): Inspection/Auscultation: abdomen normal to inspection, + abdomen distended (Minimal distention without any tenderness and/or evidence of ascites) and normal bowel sounds Percussion/Palpation: abdomen soft; abdomen nontender Musculoskeletal: No acute arthritis in any joint Neurologic: moves all extremities; no focal motor deficits Motor/Sensory: no tremor Alert and awake. Pleasantly confused. No hepatic flap Psychiatric: Orientation: alert Insight: + limited insight Judgement: + limited judgement Lymphatic: no cervical or axillary lymphadenopathy Results & Data Results & Data ([facility]) Vital Signs (Past 12 Hours) Vital Signs Temp Pulse Resp BP Pulse Ox 07/08/20 09:30 60 134/68 07/08/20 07:12 36.6 C 52 L 16 118/67 93 Laboratory Results Short CBC 07/08/20 Range/Units 05:36 WBC 4.60 L (4.8-10.8) K/uL Hgb 13.1 L (14.0-18.0) g/dL Hct 38.8 L (42-52) % Plt Count 52 L (130-400) K/uL Urine 07/07/20 Range/Units 15:45 Urine Color Yellow Urine Appearance Clear (Clear) Urine pH 5.0 (4.5-7.5) Ur Specific [place] 1.029 (1.000-1.030) Urine Protein Negative (Negative) Urine Glucose (UA) 3+ H (Negative) Medications Administered Current Inpatient Medications Acetaminophen (Acetaminophen 325 Mg Tab) 650 mg PO Q4 PRN PRN Reason: Fever Or Pain Stop: 08/04/20 15:52 Albuterol (Albuterol Hfa 8 Gm Inhaler) 2 puffs INH Q4H PRN PRN Reason: SHORT OF BREATH Stop: 08/04/20 15:52 Albuterol (Albut/Ipratrop 3mg/0.5mg Neb 3 Ml Vial) 3 ml INH QIDR PRN PRN Reason: Shortness Of Breath Or Wheezing Stop: 08/04/20 18:59 Dextrose (Dextrose 50% 50 Ml Syringe) 25 - 50 ml IV UD PRN; Protocol PRN Reason: Hypoglycemia Protocol Stop: 08/04/20 15:52 Escitalopram Oxalate (Escitalopram Oxalate Oral Soln 5 Mg/5 Ml Udp) 5 mg PO DAILY [facility] Stop: 08/05/20 08:59 Last Admin: 07/08/20 09:36 Dose: 5 mg Documented by: Ferrous Gluconate (Ferrous Gluconate 324 Mg Tab) 324 mg PO BID [facility] Stop: 08/04/20 20:59 Last Admin: 07/08/20 09:35 Dose: 324 mg Documented by: Fluticasone Propionate (Fluticasone Propionate Na Spr 16 Gm Btl) 1 sprays NA DAILY [facility] Stop: 08/05/20 08:59 Last Admin: 07/08/20 09:34 Dose: 1 sprays Documented by: Folic Acid (Folic Acid 1 Mg Tab) 1 mg PO DAILY [facility] Stop: 08/05/20 08:59 Last Admin: 07/08/20 09:36 Dose: 1 mg Documented by: Furosemide (Furosemide 20 Mg Tab) 20 mg PO DAILY [facility] Stop: 08/05/20 08:59 Last Admin: 07/08/20 09:35 Dose: 20 mg Documented by: Glucagon (Glucagon For Inj 1 Mg Vial) 1 mg SQ UD PRN; Protocol PRN Reason: Hypoglycemia Protocol Stop: 08/04/20 15:52 Glucose (Glucose 10 Tabs/Tube) 4 - 8 tabs PO UD PRN; Protocol PRN Reason: Hypoglycemia Protocol Stop: 08/04/20 15:52 Glucose (Glucose 40% Gel 15 Gm Tube) 15 - 30 gm PO UD PRN; Protocol PRN Reason: Hypoglycemia Protocol Stop: 08/04/20 15:52 Heparin Sodium (Porcine) (Heparin Sod 5,000 Unit/0.5 Ml Vial) 5,000 units SQ Q12 [facility] Stop: 08/04/20 20:59 Last Admin: 07/08/20 09:34 Dose: 5,000 units Documented by: Insulin Aspart (Insulin Aspart 100 Units/Ml 3 Ml Pen) 0 units SC ACHS [facility]; Protocol Stop: 08/04/20 16:29 Last Admin: 07/08/20 09:32 Dose: 5 units Documented by: Insulin Glargine (Insulin Glargine Solostar 100 Units/Ml 3 Ml Pen) 15 units SQ BID [facility]; Protocol Stop: 08/05/20 12:29 Last Admin: 07/08/20 09:33 Dose: 15 units Documented by: Lactulose (Lactulose Syrup 20 Gm/30 Ml Udc) 60 gm PO TID [facility] Stop: 08/04/20 20:59 Last Admin: 07/08/20 09:36 Dose: 60 gm Documented by: Magnesium Oxide (Magnesium Oxide 400 Mg Tab) 400 mg PO BID [facility] Stop: 08/04/20 20:59 Last Admin: 07/08/20 09:34 Dose: 400 mg Documented by: Metoprolol Tartrate (Metoprolol Tartrate 25 Mg Tab) 25 mg PO BID [facility] Stop: 08/04/20 20:59 Last Admin: 07/08/20 09:35 Dose: 25 mg Documented by: Miscellaneous (Carbohydrates For Hypoglycemia ) 15 - 30 gm PO UD PRN PRN Reason: Hypoglycemia Protocol Stop: 08/04/20 15:52 Miscellaneous Information (Pharmacy Glycemic Mgmt Consult) 1 ea N/A UD PRN; Protocol PRN Reason: Consult Stop: 08/04/20 16:03 Nitroglycerin (Nitroglycerin Sl 0.4 Mg/Tab Tab) 0.4 mg SL UD PRN PRN Reason: Chest Pain Stop: 08/04/20 15:52 Ondansetron HCl (Ondansetron Inj 2 Mg/Ml 2 Ml Vial) 4 mg IV Q6H PRN PRN Reason: Nausea Stop: 08/04/20 15:52 Pantoprazole Sodium (Pantoprazole 40 Mg Tab) 40 mg PO BID [facility] Stop: 08/04/20 20:59 Last Admin: 07/08/20 09:34 Dose: 40 mg Documented by: Potassium Chloride (Potassium Chloride 20 Meq Tabcr) 20 meq PO DAILY [facility] Stop: 08/05/20 08:59 Last Admin: 07/08/20 09:35 Dose: 20 meq Documented by: Rifaximin (Rifaximin 550 Mg Tablet) 550 mg PO BID [facility] Stop: 08/04/20 20:59 Last Admin: 07/08/20 09:35 Dose: 550 mg Documented by: Tamsulosin HCl (Tamsulosin Hcl 0.4 Mg Cap) 0.4 mg PO DAILY [facility] Stop: 08/05/20 08:59 Last Admin: 07/08/20 09:36 Dose: 0.4 mg Documented by: (1) HTN (hypertension) Hypertension type: unspecified Qualified Code(s): I10 - Essential (primary) hypertension (2) Aortic stenosis Cardiac valve disease etiology: etiology unspecified Qualified Code(s): I35.0 - Nonrheumatic aortic (valve) stenosis
--- NOTE | 2020-07-08 18:43 | Discharge Summary ---
Date of Service July 08, 2020 Admission HPI Per Admitting Provider 79-year-old male with a past medical history of anemia, nonalcoholic cirrhosis, anxiety, coronary artery disease, CKD stage III, diverticulosis, dyslipidemia, GERD, hepatic encephalopathy, hiatal hernia, hypertension, insulin-dependent diabetes, osteoarthritis, portal hypertension, and elevated LFTs who presents today with an ammonia level of 86 and confusion. He has not had many bowel movements in the last 24 to 48 hours. We will be placing him under observation, giving him lactulose and monitoring his ammonia level. Likely will get him home tomorrow. Admission Exam Per Admitting Provider Gen-AAO x 1, NAD, Afebrile, pleasant and confused Head-NCAT, EOMI, PERRLA, Anicteric Sclera, No Posterior Pharyngeal Erythema Neck-Supple, No JVD, No Thyromegaly, No Masses, No LAD, No Bruits Lungs-Clear to Auscultation Bilaterally, No Rales, No Rhonchi, No Wheezing, No Crepitus Chest-No S4, +S1, +S2, No S3, No Murmurs, No Rubs, No Gallops, No Ectopy Abdomen-Soft, Bowel Sounds Present, Non Tender, Non Distended, No Hepatomegaly, No Splenomegaly, No Palpable Masses, No Rebound, No Rigidity, No Guarding Musculoskeletal-Full Range of Motion Bilaterally, No CVAT Extremities-No Cyanosis, No Clubbing, No Edema Nuero-Cranial Nerves II-XII grossly intact, Motor WNL, DTRs WNL, Strength WNL, Non Focal Psych-Normal Mood Principal Diagnosis Hepatic encephalopathy-resolved, Hebert cirrhosis, CAD, CKD, aortic stenosis, diabetes on insulin Discharge Exam Constitutional well developed, well nourished and + obese; no acute distress and not ill appearing Eyes PERRL, conjunctivae normal, anicteric sclerae ENMT external ear and nose normal, oropharynx normal Neck trachea midline, no thyromegaly Respiratory normal respiratory effort; no respiratory distress Auscultation: lungs clear to auscultation bilaterally Cardiovascular Rate/Rhythm: regular rate and regular rhythm Heart Sounds: no murmur Gastrointestinal (Abdomen) Inspection/Auscultation: abdomen normal to inspection, + abdomen distended (Minimal distention without any tenderness and/or evidence of ascites) and normal bowel sounds Percussion/Palpation: abdomen soft; abdomen nontender Neurologic moves all extremities; no focal motor deficits Motor/Sensory: no tremor Psychiatric Orientation: alert Insight: + limited insight Judgement: + limited judgement Lymphatic no cervical or axillary lymphadenopathy Discharge Data Allergies Allergy/AdvReac Type Severity Reaction Status Date / Time PRASHANT Inhibitors Allergy Severe ANGIOEDEMA Verified 07/05/20 12:46 from 10/10/11 ED adm lisinopril Allergy Severe Edema - Verified 07/05/20 12:46 face, lips and tongue simvastatin Allergy Unknown RASH, SORE Verified 07/05/20 12:46 ALL OVER. 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 Recently discharged from the hospital following an attack of acute confusion Noted to have minimal or no bowel movement for the last 24 to 48 hours Admitted yesterday with acute confusion secondary to hepatic encephalopathy Ammonia level of 86 on admission and remains more than 100 as of today but clinically he has been feeling a lot better Lactulose has been increased to 60 mg 3 times daily to have 2-3 bowel movement daily Continue rifaximin Clinically a lot better without any acute confusion and the ammonia level has been almost normalized Appreciate PT and OT input and recommendation Clinically much better without any hepatic flap and the ammonia level has been normalized Bowel has been moving about 2 times a day He will be discharged to [facility] today Strongly advised to have at least 2 bowel movements a day (2) Hyperammonemia: Ammonia level has improved a lot (3) Cirrhosis of liver not due to alcohol: (4) Generalized weakness: We will get PT and OT evaluation Recommended back to personal fci (5) Insulin dependent diabetes mellitus: (6) GERD (gastroesophageal reflux disease): (7) HTN (hypertension): (8) CAD (coronary artery disease): (9) Dyslipidemia: (10) Aortic stenosis: (11) CKD (chronic kidney disease), stage III: Monitor PRP All of his other comorbid conditions remain stable Monitor his hemoglobin and liver and kidney function We will get PT and OT evaluation Will be discharged this afternoon Total Time Total Time Spent Total Time Spent (In Minutes): 35 minutes Total Time Includes: Examination of the Patient, Discharge Planning, Medication Reconciliation and Communication With Other Providers Discharge Plan Discharge Items Patient Disposition: Personal Assisted Reason For Visit: HEPATIC ENCEPHALOPATHY Discharge Diagnosis: Hepatic encephalopathy-resolved, Hebert cirrhosis, CAD, CKD, aortic stenosis, diabetes on insulin Condition on Discharge: Fair Activity: Resume your previous activity Activity Comment: Continue PT and OT Non-emergency contact: Primary Care Provider Call non-emergency contact if: you have any medication questions and your symptoms worsen Follow-up/Referrals: Duglas Evans MD [Primary Care Provider] - (Date & Time 07/11/2020 11:00 AM Provider Atiya Baltazar, Department [facility] ) Diet: Carb Consistent or DM2 Fluids: 1500ml (6 cups) Addtl Attending Provider Instructions: Please take precaution to avoid falls He has at least 2 bowel movements a day by adjusting the dose of lactulose Pending Studies at Discharge: No Stand-Alone Forms: My [employer], Smoking Cessation Skilled Items Patient informed of condition?: Yes DNR: No Discharge Level of Care: Other Communicable Disease: No Discharge Prognosis: Stable Lines: None Urinary Catheter: No Medications and DC Order Prescriptions: Continued pantoprazole 40 mg tablet,delayed release (DR/EC) 40 mg PO BID RF: 0 escitalopram oxalate 5 mg tablet 5 mg PO DAILY RF: 0 potassium chloride 10 mEq Capsule, Extended Release 20 meq PO DAILY RF: 0 tamsulosin 0.4 mg capsule 0.4 mg PO DAILY RF: 0 folic acid 1 mg tablet 1 mg PO DAILY RF: 0 metoprolol tartrate 25 mg tablet 25 mg PO BID RF: 0 ferrous gluconate 324 mg (38 mg iron) Tablet 324 mg PO BID RF: 0 rifaximin 550 mg Tablet 550 mg PO BID RF: 0 empagliflozin 25 mg Tablet 25 mg PO DAILY RF: 0 nitroglycerin 0.4 mg Tablet, Sublingual 0.4 mg sublingual UD PRN (Reason: Chest Pain) RF: 0 furosemide [Lasix] 20 mg Tablet 20 mg PO DAILY RF: 0 albuterol sulfate [Ventolin HFA] 90 mcg/actuation Hfa Aerosol Inhaler 2 puff INHALATION Q4H PRN (Reason: SHORT OF BREATH) RF: 0 fluticasone propionate [Flonase Allergy Relief] 50 mcg/actuation [place],Suspension 1 spray INTRANASAL DAILY RF: 0 magnesium oxide 400 mg magnesium Tablet 400 mg PO BID RF: 0 ipratropium-albuterol 0.5 mg-3 mg(2.5 mg base)/3 mL Solution For Nebulization 3 ml INHALATION QID RF: 0 Lantus Solostar U-100 Insulin 100 unit/mL (3 mL) insulin pen 28 unit subcut BID RF: 0 insulin aspart U-100 [Novolog Flexpen U-100 Insulin] 100 unit/mL (3 mL) insulin pen 0 unit SUBCUT TID RF: 0 acetaminophen [Tylenol] 325 mg Tablet 650 mg PO Q4 PRN (Reason: Fever Or Pain) RF: 0 Changed lactulose 10 gram/15 mL (15 mL) Solution 60 g PO TID Qty: 0 RF: 0 Discharge Orders: Discharge Order (Routine); Ordered 07/08/20 Ordered By: Precious Ragland Admission Data Admit Date/Time: 07/07/20 13:33 Attending Provider: Precious Ragland Admit Provider: Saji Mcintosh Primary Care Provider: Duglas Evans Other Providers: Saji Mcintosh ; [facility] Fax Other Interventions: Discharge Summary Assessment (RN) Last Done: 07/08/20 14:11
== END 2020-07-08 14:26 | disposition home or self-care (01) | DRG 442 ==
LOC: ED 12:15 → 3N 12:15 → SUATTDRO 14:45 → 3N 15:24

== ENCOUNTER 2020-07-14 20:34 | Inpatient (IN) ==
[2020-07-14 21:11] LABS: Hematocrit (blood only) 45.5 % (42-52); Hemoglobin 15.4 g/dL (14.0-18.0); Mean Corpuscular Hemoglobin 33.3 pg (25-34); Mean Corpuscular Hgb Conc 33.8 g/dL (32-36); Mean Corpuscular Volume 98.5 fL (80-100); RDW Coefficient of Variation 16.2 % (11.5-14.5); RDW Standard Deviation 58.3 fL (36.4-46.3); Red Blood Count 4.62 M/uL (4.7-6.1); White Blood Count 4.57 K/uL (4.8-10.8)
[2020-07-14 21:26] LABS: Alanine Aminotransferase 37 U/L (12-78); Alkaline Phosphatase 305 U/L (45-117); BUN Creatinine Ratio 8.1 (10-20); Bilirubin,Total 0.8 mg/dl (0.2-1); Blood Urea Nitrogen 11 mg/dl (7-18); Calcium 8.8 mg/dl (8.5-10.1); Carbon Dioxide 26 mmol/L (21-32); Chloride 109 mmol/L (98-107); Est GFR (African American) 56.2; Est GFR (Non-African American) 48.5; Glucose 216 mg/dl (70-99); Lipase 154 U/L (73-393); Sodium 140 mmol/L (136-145); Total Protein 6.4 gm/dl (6.4-8.2)
[2020-07-14 21:29] LABS: INR 1.2 (0.9-1.1); Partial Thromboplastin Ratio 1.1; Partial Thromboplastin Time 29.3 Seconds (21.0-31.0); Prothrombin Time 12.1 Seconds (9.0-12.0)
[2020-07-14 22:06] LABS: Mean Platelet Volume 11.5 fL (7.4-10.4); Platelet Count 58 K/uL (130-400)
[2020-07-14 22:08] LABS: Basophils # (auto) 0.04 K/uL (0-0.2); Basophils % (auto) 0.9 %; Eosinophils # (auto) 0.22 K/uL (0-0.5); Eosinophils % (auto) 4.8 %; Immature Granulocytes # (auto) 0.01 K/uL (0.00-0.02); Immature Granulocytes % (auto) 0.2 %; Lymphocytes # (auto) 1.02 K/uL (1.2-3.4); Lymphocytes % (auto) 22.3 %; Monocytes # (auto) 0.52 K/uL (0.11-0.59); Monocytes % (auto) 11.4 %; Neutrophils # (auto) 2.76 K/uL (1.4-6.5); Neutrophils % (auto) 60.4 %
[2020-07-14] MEDS ORDERED: LACTULOSE SYRUP 20 GM/30 ML UDC PO ONE (22:18)
[2020-07-14 22:25] LABS: Potassium 4.3 mmol/L (3.5-5.1)
--- NOTE | 2020-07-15 00:05 | Emergency Department Note ---
History of Present Illness General Chief complaint: Altered Mental Status Stated complaint: ALTERED MENTAL STATUS Time Seen by Provider: 07/14/20 20:56 Source: EMS Mode of arrival: EMS History of Present Illness Provider complaint: Altered mental status Location: head 79-year-old male presents emergency department for altered mental status. Patient is from [facility]. Per the staff he has been increasingly confused. He has a history of hepatic encephalopathy. They also state he fell today. Home Medications Home Medications Medication Instructions Recorded Confirmed Type empagliflozin [Jardiance] 25 mg PO DAILY@0800 01/14/19 07/14/20 History ferrous gluconate 324 mg PO BID 01/14/19 07/14/20 History folic acid 1 mg PO DAILY@0800 01/14/19 07/14/20 History metoprolol tartrate 25 mg PO BID 01/14/19 07/14/20 History rifaximin 550 mg PO BID 01/14/19 07/14/20 History tamsulosin 0.4 mg PO DAILY@0800 01/14/19 07/14/20 History albuterol sulfate [Ventolin HFA] 2 puff INHALATION Q4H PRN 02/20/19 07/14/20 History fluticasone propionate [Flonase 1 spray INTRANASAL DAILY 02/20/19 07/14/20 History Allergy Relief] furosemide [Lasix] 20 mg PO DAILY@0800 02/20/19 07/14/20 History magnesium oxide 400 mg PO BID 02/20/19 07/14/20 History nitroglycerin 0.4 mg SUBLINGUAL UD PRN 02/20/19 07/14/20 History ipratropium-albuterol 3 ml INHALATION QID 01/13/20 07/14/20 History Lantus Solostar U-100 Insulin 28 unit SUBCUT BID 03/16/20 07/14/20 History escitalopram oxalate 5 mg PO DAILY@0800 05/08/20 07/14/20 History pantoprazole 40 mg PO BID 05/08/20 07/14/20 History acetaminophen [Tylenol] 650 mg PO Q4 PRN 06/19/20 07/14/20 History insulin aspart U-100 [Novolog 0 unit SUBCUT TID 06/19/20 07/14/20 History Flexpen U-100 Insulin] lactulose 60 g PO TID #0 ml 07/08/20 07/14/20 Rx potassium chloride 20 meq PO DAILY@0800 07/14/20 07/14/20 History Allergies Allergy/AdvReac Type Severity Reaction Status Date / Time PRASHANT Inhibitors Allergy Severe ANGIOEDEMA Verified 07/14/20 21:35 from 10/10/11 ED adm lisinopril Allergy Severe Edema - Verified 07/14/20 21:35 face, lips and tongue simvastatin Allergy Unknown RASH, SORE Verified 07/14/20 21:35 ALL OVER. 2013: Uses Crestor Past Med/Surg History Medical History Anemia Anxiety Aortic stenosis "severe on echo 04/2017" On 07/03/16 17:13 Cande Poon wrote "severe on echo 04/2016" CAD (coronary artery disease) "2009 - RCA stent 2012 - RCA stent restenosis, s/p AMOS to RCA" Cirrhosis of liver not due to alcohol CKD (chronic kidney disease), stage III Diverticulosis Dyslipidemia GERD (gastroesophageal reflux disease) Hepatic encephalopathy Hiatal hernia HTN (hypertension) Hyperammonemia Insulin dependent diabetes mellitus Osteoarthritis Portal hypertensive gastropathy Transaminitis Surgical History H/O hemorrhoidectomy History of cardiac catheterization NO STENTS History of colonoscopy History of lumbar laminectomy History of tooth extraction Family History Son Family history of diabetes mellitus Family/Other Family hx of colon cancer Social History Smoking Status: Never smoker Second Hand Exposure: No; Hx Alcohol Use: No Hx Substance Use: No Preferred Language: Icelandic Communication Ability: Effective 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 Beliefs That Will Affect Care: None marital status: / Current Living Situation: [facility] Current Living Situation Comment: elisa How many Children do You have: 3 Feels Safe at Home: Yes Assistive Devices: Walker Review of Systems Unobtainable due to cognitive status Physical Exam Vital Signs Vital Signs - 24 hr 07/14/20 20:39 07/14/20 20:44 07/14/20 20:45 Temperature 36.9 C Temperature Source Oral Pulse Rate 62 61 62 Pulse Rate from SpO2 Sensor 62 63 Respiratory Rate 17 Respiratory Effort / Characteristics Non-Labored Spontaneous Respiratory Pattern Regular Blood Pressure 145/64 H 145/64 H Blood Pressure Mean 91 91 Pulse Oximetry 97 98 97 Oxygen Delivery Method Room Air Sepsis Recent Fever Within 48 Hours No Sepsis New/Unexplained Change in Mental Status Yes Sepsis Action Taken by Nursing No Action Required 07/14/20 21:00 07/14/20 21:30 07/14/20 22:00 Temperature Temperature Source Pulse Rate 60 60 58 L Pulse Rate from SpO2 Sensor 60 61 57 L Respiratory Rate 15 Respiratory Effort / Characteristics Respiratory Pattern Blood Pressure Blood Pressure Mean Pulse Oximetry 97 95 96 Oxygen Delivery Method Sepsis Recent Fever Within 48 Hours Sepsis New/Unexplained Change in Mental Status Sepsis Action Taken by Nursing 07/14/20 22:14 07/14/20 22:30 07/14/20 22:52 Temperature Temperature Source Pulse Rate 56 L 58 L 55 L Pulse Rate from SpO2 Sensor 56 L 58 L 55 L Respiratory Rate 15 15 15 Respiratory Effort / Characteristics Respiratory Pattern Blood Pressure 142/58 H 124/56 L 124/56 L Blood Pressure Mean 82 80 80 Pulse Oximetry 95 93 95 Oxygen Delivery Method Sepsis Recent Fever Within 48 Hours Sepsis New/Unexplained Change in Mental Status Sepsis Action Taken by Nursing 07/14/20 23:00 Temperature Temperature Source Pulse Rate 56 L Pulse Rate from SpO2 Sensor 55 L Respiratory Rate 16 Respiratory Effort / Characteristics Respiratory Pattern Blood Pressure 148/63 H Blood Pressure Mean 104 Pulse Oximetry 93 Oxygen Delivery Method Room Air Sepsis Recent Fever Within 48 Hours Sepsis New/Unexplained Change in Mental Status Sepsis Action Taken by Nursing Physical Exam HENT: Exam performed. - Head: Normocephalic and atraumatic. - Right Ear: External ear normal. No mastoid tenderness. - Left Ear: External ear normal. No mastoid tenderness. - Mouth/Throat: The oropharynx is clear and moist. No trismus in the jaw. No dental abscesses or uvula swelling. No oropharyngeal exudate or tonsillar abscesses. EYES: Conjunctivae and EOM are normal. Pupils are equal, round, and reactive to light. Right eye exhibits no discharge. Left eye exhibits no discharge. scleral icterus present bilaterally NECK: Normal range of motion. Neck supple. No JVD present. No spinous process tenderness present. No carotid bruit present. No rigidity. No tracheal deviation and normal range of motion present. No Brudzinski's sign and no Kernig's sign noted. CV: Normal rate, regular rhythm, normal heart sounds and intact distal pulses. There is no peripheral edema. Palpable radial pulses bue. PULM/CHEST: Effort normal and breath sounds normal. No respiratory distress. No stridor. He has no wheezes. He has no rales. - Chest Wall: He exhibits no tenderness. ABD: The abdomen is soft. Bowel sounds are normal. He has no distension. No mass is present. There is no tenderness. There is no rebound, no guarding, no Powell's sign and no tenderness at McBurney's point. Rovsig negative. MUSC/SKEL: Normal range of motion. There is no peripheral edema, tenderness or deformity. LYMPH: No cervical adenopathy. NEURO: He is alert and not oriented to person, place, or time. Motor and sensation grossly intact. Asterixis present. SKIN: Jaundiced Course Course 2055: The patient was evaluated in room B2. A complete history and physical exam was performed. EMR reviewed. Patient has multiple admissions for hepatic encephalopathy and elevated ammonia levels. Patient had a COVID-19 swab done on July 08, 2020 which was negative. 2224: Vital signs stable. Platelets at baseline. Ammonia is 145.5. CT of the head within normal limits. Patient given lactulose will be admitted to the [facility] service. Dr. Bowser notified. Medical Decision Making Laboratory Data Result diagrams: 07/14/20 20:50 07/14/20 21:55 Lab Results 07/14/20 07/14/20 07/14/20 Range/Units 20:45 20:50 20:50 WBC 4.57 L (4.8-10.8) K/uL RBC 4.62 L (4.7-6.1) M/uL Hgb 15.4 (14.0-18.0) g/dL Hct 45.5 (42-52) % MCV 98.5 (80-100) fL MCH 33.3 (25-34) pg MCHC 33.8 (32-36) g/dL RDW Std Deviation 58.3 H (36.4-46.3) fL RDW Coeff of Adrian 16.2 H (11.5-14.5) % Plt Count 58 L (130-400) K/uL MPV 11.5 H (7.4-10.4) fL Immature Gran % (Auto) 0.2 % Neut % (Auto) 60.4 % Lymph % (Auto) 22.3 % [place] % (Auto) 11.4 % Eos % (Auto) 4.8 % Baso % (Auto) 0.9 % Neut # (Auto) 2.76 (1.4-6.5) K/uL Lymph # (Auto) 1.02 L (1.2-3.4) K/uL [place] # (Auto) 0.52 (0.11-0.59) K/uL Eos # (Auto) 0.22 (0-0.5) K/uL Baso # (Auto) 0.04 (0-0.2) K/uL Immature Gran # (Auto) 0.01 (0.00-0.02) K/uL PT 12.1 H (9.0-12.0) Seconds INR 1.2 H (0.9-1.1) APTT 29.3 (21.0-31.0) Seconds PTT Ratio 1.1 Sodium (136-145) mmol/L Potassium (3.5-5.1) mmol/L Chloride (98-107) mmol/L Carbon Dioxide (21-32) mmol/L Anion Gap (3-11) BUN (7-18) mg/dl Creatinine (0.6-1.4) mg/dl Est Cr Clr Drug Dosing Est GFR ( Amer) Est GFR (Non-Af Amer) BUN/Creatinine Ratio (10-20) Glucose (70-99) mg/dl POC Glucose 192 H (70-99) mg/dl Calcium (8.5-10.1) mg/dl Total Bilirubin (0.2-1) mg/dl Direct Bilirubin (0-0.2) mg/dl AST (15-37) U/L ALT (12-78) U/L Alkaline Phosphatase (45-117) U/L Ammonia (11-32) umol/L Total Protein (6.4-8.2) gm/dl Albumin (3.4-5.0) gm/dl Lipase (73-393) U/L Specimen Hemolysis 07/14/20 07/14/20 07/14/20 Range/Units 20:50 21:27 21:55 WBC (4.8-10.8) K/uL RBC (4.7-6.1) M/uL Hgb (14.0-18.0) g/dL Hct (42-52) % MCV (80-100) fL MCH (25-34) pg MCHC (32-36) g/dL RDW Std Deviation (36.4-46.3) fL RDW Coeff of Adrian (11.5-14.5) % Plt Count (130-400) K/uL MPV (7.4-10.4) fL Immature Gran % (Auto) % Neut % (Auto) % Lymph % (Auto) % [place] % (Auto) % Eos % (Auto) % Baso % (Auto) % Neut # (Auto) (1.4-6.5) K/uL Lymph # (Auto) (1.2-3.4) K/uL [place] # (Auto) (0.11-0.59) K/uL Eos # (Auto) (0-0.5) K/uL Baso # (Auto) (0-0.2) K/uL Immature Gran # (Auto) (0.00-0.02) K/uL PT (9.0-12.0) Seconds INR (0.9-1.1) APTT (21.0-31.0) Seconds PTT Ratio Sodium 140 (136-145) mmol/L Potassium 4.3 (3.5-5.1) mmol/L Chloride 109 H (98-107) mmol/L Carbon Dioxide 26 (21-32) mmol/L Anion Gap 6.0 (3-11) BUN 11 (7-18) mg/dl Creatinine 1.36 (0.6-1.4) mg/dl Est Cr Clr Drug Dosing Not Reportable Est GFR ( Amer) 56.2 Est GFR (Non-Af Amer) 48.5 BUN/Creatinine Ratio 8.1 L (10-20) Glucose 216 H (70-99) mg/dl POC Glucose (70-99) mg/dl Calcium 8.8 (8.5-10.1) mg/dl Total Bilirubin 0.8 (0.2-1) mg/dl Direct Bilirubin (0-0.2) mg/dl AST 54 H (15-37) U/L ALT 37 (12-78) U/L Alkaline Phosphatase 305 H (45-117) U/L Ammonia 145.5 H (11-32) umol/L Total Protein 6.4 (6.4-8.2) gm/dl Albumin 3.0 L (3.4-5.0) gm/dl Lipase 154 (73-393) U/L Specimen Hemolysis Imaging Data Radiologist's Impression: PreliminaryFindingsOnly See Final Report For Complete Findings CT HEAD: Comparison:CT head 06/19/20. Involutional and chronic small vessel ischemic changes. No ICH, mass effect, or edema. No skull fracture. Sinuses and mastoid air cells are clear. Radiologist: Alla Hamilton M.D. Study ready at 21:55 and initial results transmitted at 22:05 MDM Narrative 2055: The patient was evaluated in room B2. A complete history and physical exam was performed. EMR reviewed. Patient has multiple admissions for hepatic encephalopathy and elevated ammonia levels. Patient had a COVID-19 swab done on July 08, 2020 which was negative. 2224: Vital signs stable. Platelets at baseline. Ammonia is 145.5. CT of the head within normal limits. [facility]. Impression & Plan Hepatic encephalopathy Discharge Plan Visit Data Chief Complaint: Altered Mental Status Stated Complaint: ALTERED MENTAL STATUS ED Provider: Romeo Shukla Discharge Problem: Hepatic encephalopathy Patient Disposition: Admitted As Inpatient Forms Stand Alone Forms: [facility] Prescriptions Prescriptions: No Action pantoprazole 40 mg tablet,delayed release (DR/EC) 40 mg PO BID RF: 0 escitalopram oxalate 5 mg tablet 5 mg PO DAILY@0800 RF: 0 lactulose 10 gram/15 mL (15 mL) Solution 60 g PO TID Qty: 0 RF: 0 tamsulosin 0.4 mg capsule 0.4 mg PO DAILY@0800 RF: 0 folic acid 1 mg tablet 1 mg PO DAILY@0800 RF: 0 metoprolol tartrate 25 mg tablet 25 mg PO BID RF: 0 ferrous gluconate 324 mg (38 mg iron) Tablet 324 mg PO BID RF: 0 rifaximin 550 mg Tablet 550 mg PO BID RF: 0 Jardiance 25 mg Tablet 25 mg PO DAILY@0800 RF: 0 nitroglycerin 0.4 mg Tablet, Sublingual 0.4 mg sublingual UD PRN (Reason: Chest Pain) RF: 0 furosemide [Lasix] 20 mg Tablet 20 mg PO DAILY@0800 RF: 0 albuterol sulfate [Ventolin HFA] 90 mcg/actuation Hfa Aerosol Inhaler 2 puff INHALATION Q4H PRN (Reason: SHORT OF BREATH) RF: 0 fluticasone propionate [Flonase Allergy Relief] 50 mcg/actuation [place]ader,Suspension 1 spray INTRANASAL DAILY RF: 0 magnesium oxide 400 mg magnesium Tablet 400 mg PO BID RF: 0 ipratropium-albuterol 0.5 mg-3 mg(2.5 mg base)/3 mL Solution For Nebulization 3 ml INHALATION QID RF: 0 Lantus Solostar U-100 Insulin 100 unit/mL (3 mL) insulin pen 28 unit subcut BID RF: 0 insulin aspart U-100 [Novolog Flexpen U-100 Insulin] 100 unit/mL (3 mL) insulin pen 0 unit SUBCUT TID RF: 0 acetaminophen [Tylenol] 325 mg Tablet 650 mg PO Q4 PRN (Reason: Fever Or Pain) RF: 0 potassium chloride 20 mEq Tablet Extended Release 20 meq PO DAILY@0800 RF: 0 Referrals Referrals: Duglas Evans MD [Primary Care Provider] -
[2020-07-15] MEDS ORDERED: SODIUM CHLORIDE 0.9% 500 ML IV STA (00:07)
[2020-07-15] MEDS ORDERED: LACTULOSE SYRUP 20 GM/30 ML UDC ONE (00:41)
[2020-07-15] MEDS ORDERED: LACTULOSE SYRUP 30 GM/45 ML UDP PO STA (01:07)
[2020-07-15] MEDS ORDERED: rifAXIMin 550 MG TABLET PO STA (01:07)
--- NOTE | 2020-07-15 02:13 | History & Physical Report ---
Date of Service July 15, 2020 Assessment & Plan (1) Hepatic encephalopathy: hx NAFLD cirrhosis recurrent admissions Rule out UTI as precipitant hx CAD sp stenting HTN, stable hx aortic stenosis status post AVR, DM2 insulin requiring, well-controlled as of recent hemoglobin A1c of 6.5 Jun lexi 2019 past tobacco abuse Medical telemetry Facilitate lactulose (30 mg p.o. 4 times daily for now) and rifaximin. Check UA Gi consult RE recurrent hepatic encephalopathy Basal insulin adjusted for clear liquid diet for now until patient more awake, ISS BG goal [id number], carb count coverage Resume home diuretics when volume status improved DVT prophylaxis. SCDs thrombocytopenia DNR as per the patient's prior wishes as per [id number], Ms. Irena Quintero. She requests updates from providers thru [phone]. Text document was generated using [employer] voice recognition software. It may contain grammatical or spelling errors. Kindly contact undersigned for clarification of any documentation item in question. History of Present Illness Chief Complaint: Confusion as per records Primary Care Provider: Duglas Evans MD History obtained from patient, family, and records. Limited history from patient secondary to disorientation. Medical history significant for cirrhosis secondary to nonalcoholic fatty liver disease, DM2, insulin requiring, CAD sp stenting, HTN, severe aortic stenosis status post AVR, chronic renal insufficiency (baseline creatinine of 1.3), past tobacco abuse. Recent confinement last week for hepatic encephalopathy. Patient lactulose dose increased to 60 mg p.o. 3 times daily on discharge. Yesterday patient noted to be increasingly confused [facility]. Possible fall as per documentation. Compliant with medications. Dose decrease due to increase diarrhea and concern for dehydration as per outpatient documentation. Patient denies chest pain, S OB, cough, abdominal pain, black/bloody stools. Patient given Lactulose at the ER. MEDICAL HISTORY: As above. 2018 EGD showed portal hypertensive gastropathy; Colonoscopy showed diverticulosis, polyp, internal hemorrhoids SURGERIES: Hemorrhoidectomy, back surgery. Aortic valve replacement FAMILY HISTORY: Heart disease. Diabetes, stroke PERSONAL AND SOCIAL HISTORY: Past tobacco abuse. No chronic intake of alcoholic beverages. 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 2013: Uses Crestor Home Medications Home Medications Medication Instructions Recorded Confirmed Type empagliflozin [Jardiance] 25 mg PO DAILY@0800 01/14/19 07/14/20 History ferrous gluconate 324 mg PO BID 01/14/19 07/14/20 History folic acid 1 mg PO DAILY@0800 01/14/19 07/14/20 History metoprolol tartrate 25 mg PO BID 01/14/19 07/14/20 History rifaximin 550 mg PO BID 01/14/19 07/14/20 History tamsulosin 0.4 mg PO DAILY@0800 01/14/19 07/14/20 History albuterol sulfate [Ventolin HFA] 2 puff INHALATION Q4H PRN 02/20/19 07/14/20 History fluticasone propionate [Flonase 1 spray INTRANASAL DAILY 02/20/19 07/14/20 History Allergy Relief] furosemide [Lasix] 20 mg PO DAILY@0800 02/20/19 07/14/20 History magnesium oxide 400 mg PO BID 02/20/19 07/14/20 History nitroglycerin 0.4 mg SUBLINGUAL UD PRN 02/20/19 07/14/20 History ipratropium-albuterol 3 ml INHALATION QID 01/13/20 07/14/20 History Lantus Solostar U-100 Insulin 28 unit SUBCUT BID 03/16/20 07/14/20 History escitalopram oxalate 5 mg PO DAILY@0800 05/08/20 07/14/20 History pantoprazole 40 mg PO BID 05/08/20 07/14/20 History acetaminophen [Tylenol] 650 mg PO Q4 PRN 06/19/20 07/14/20 History insulin aspart U-100 [Novolog 0 unit SUBCUT TID 06/19/20 07/14/20 History Flexpen U-100 Insulin] lactulose 60 g PO TID #0 ml 07/08/20 07/14/20 Rx potassium chloride 20 meq PO DAILY@0800 07/14/20 07/14/20 History Past Med/Surg History Medical History Anemia Anxiety Aortic stenosis "severe on echo 04/2017" On 07/03/16 17:13 Cande Ayah wrote "severe on echo 04/2016" CAD (coronary artery disease) "2009 - RCA stent 2012 - RCA stent restenosis, s/p AMOS to RCA" Cirrhosis of liver not due to alcohol CKD (chronic kidney disease), stage III Diverticulosis Dyslipidemia GERD (gastroesophageal reflux disease) Hepatic encephalopathy Hiatal hernia HTN (hypertension) Hyperammonemia Insulin dependent diabetes mellitus Osteoarthritis Portal hypertensive gastropathy Transaminitis Surgical History H/O hemorrhoidectomy History of cardiac catheterization NO STENTS History of colonoscopy History of lumbar laminectomy History of tooth extraction Family History Son Family history of diabetes mellitus Family/Other Family hx of colon cancer Social History Smoking Status: Former smoker Smoking End Date: 20 years ago; Second Hand Exposure: No; Do You Dip or Chew Tobacco: No; Tobacco Cessation Education Requested by Patient: No Hx Alcohol Use: No Hx Substance Use: No Preferred Language: Spanish Communication Ability: Effective Seo Expert Required: No Beliefs That Will Affect Care: None marital status: / Current Living Situation: Retirement Current Living Situation Comment: elisa How many Children do You have: 3 Other Information That Helps Us Care for You: No Feels Safe at Home: Yes Safety Concerns: Feels Safe At This Time Assistive Devices: Glasses Review of Systems Review of Systems: Could not be reliably obtained Physical Exam Physical Exam: GENERAL: Comfortable, no disoriented, no respiratory distress SKIN: Normal color, warm HEENT: [place] palpebral conjunctivae, no ptosis, dry buccal mucosa NECK : Supple, no tenderness CHEST : Decreased breath sounds, occasional expiratory wheezes, no tenderness HEART : Bradycardic, no obvious murmurs ABDOMEN: Some distention, nontender EXTREMITIES : No LE swelling/tenderness, no other conspicuous deformities noted NEUROLOGIC : Disoriented, no facial asymmetry, no other gross focality Results & Data Results & Data ([facility]) Vital Signs (Past 12 Hours) Vital Signs Temp Pulse Resp BP Pulse Ox 10/27/20 01:01 56 L 15 143/57 H 95 07/15/20 01:00 58 L 17 07/15/20 00:31 60 18 159/93 H 07/15/20 00:30 59 L 20 07/15/20 00:01 59 L 17 158/72 H 92 07/15/20 00:00 58 L 15 07/14/20 23:31 57 L 16 94 07/14/20 23:30 56 L 16 160/66 H 94 07/14/20 23:00 56 L 16 148/63 H 93 07/14/20 22:52 55 L 15 124/56 L 95 07/14/20 22:30 58 L 15 124/56 L 93 07/14/20 22:14 56 L 15 142/58 H 95 07/14/20 22:00 58 L 15 96 07/14/20 21:30 60 95 07/14/20 21:00 60 97 07/14/20 20:45 62 97 07/14/20 20:44 36.9 C 61 17 145/64 H 98 07/14/20 20:39 62 145/64 H 97 Laboratory Results Laboratory Results WBC 4.57 K/uL (4.8-10.8) L 07/14/20 20:50 RBC 4.62 M/uL (4.7-6.1) L 07/14/20 20:50 Hgb 15.4 g/dL (14.0-18.0) 07/14/20 20:50 Hct 45.5 % (42-52) 07/14/20 20:50 MCV 98.5 fL (80-100) 07/14/20 20:50 MCH 33.3 pg (25-34) 07/14/20 20:50 MCHC 33.8 g/dL (32-36) 07/14/20 20:50 RDW Std Deviation 58.3 fL (36.4-46.3) H 07/14/20 20:50 RDW Coeff of Adrian 16.2 % (11.5-14.5) H 07/14/20 20:50 Plt Count 58 K/uL (130-400) L 07/14/20 20:50 MPV 11.5 fL (7.4-10.4) H 07/14/20 20:50 Immature Gran % (Auto) 0.2 % 07/14/20 20:50 Neut % (Auto) 60.4 % 07/14/20 20:50 Lymph % (Auto) 22.3 % 07/14/20 20:50 [place] % (Auto) 11.4 % 07/14/20 20:50 Eos % (Auto) 4.8 % 07/14/20 20:50 Baso % (Auto) 0.9 % 07/14/20 20:50 Neut # (Auto) 2.76 K/uL (1.4-6.5) 07/14/20 20:50 Lymph # (Auto) 1.02 K/uL (1.2-3.4) L 07/14/20 20:50 [place] # (Auto) 0.52 K/uL (0.11-0.59) 07/14/20 20:50 Eos # (Auto) 0.22 K/uL (0-0.5) 07/14/20 20:50 Baso # (Auto) 0.04 K/uL (0-0.2) 07/14/20 20:50 Immature Gran # (Auto) 0.01 K/uL (0.00-0.02) 07/14/20 20:50 PT 12.1 Seconds (9.0-12.0) H 07/14/20 20:50 INR 1.2 (0.9-1.1) H 07/14/20 20:50 APTT 29.3 Seconds (21.0-31.0) 07/14/20 20:50 PTT Ratio 1.1 07/14/20 20:50 Sodium 140 mmol/L (136-145) 07/14/20 20:50 Potassium 4.3 mmol/L (3.5-5.1) 07/14/20 21:55 Chloride 109 mmol/L (98-107) H 07/14/20 20:50 Carbon Dioxide 26 mmol/L (21-32) 07/14/20 20:50 Anion Gap 6.0 (3-11) 07/14/20 20:50 BUN 11 mg/dl (7-18) 07/14/20 20:50 Creatinine 1.36 mg/dl (0.6-1.4) 07/14/20 20:50 Est Cr Clr Drug Dosing Not Reportable 07/14/20 20:50 Est GFR ( Amer) 56.2 07/14/20 20:50 Est GFR (Non-Af Amer) 48.5 07/14/20 20:50 BUN/Creatinine Ratio 8.1 (10-20) L 07/14/20 20:50 Glucose 216 mg/dl (70-99) H 07/14/20 20:50 POC Glucose 192 mg/dl (70-99) H 07/14/20 20:45 Calcium 8.8 mg/dl (8.5-10.1) 07/14/20 20:50 Total Bilirubin 0.8 mg/dl (0.2-1) 07/14/20 20:50 Direct Bilirubin mg/dl (0-0.2) 07/14/20 21:55 AST 54 U/L (15-37) H 07/14/20 21:55 ALT 37 U/L (12-78) 07/14/20 20:50 Alkaline Phosphatase 305 U/L (45-117) H 07/14/20 20:50 Ammonia 145.5 umol/L (11-32) H 07/14/20 21:27 Total Protein 6.4 gm/dl (6.4-8.2) 07/14/20 20:50 Albumin 3.0 gm/dl (3.4-5.0) L 07/14/20 20:50 Lipase 154 U/L (73-393) 07/14/20 20:50 Specimen Hemolysis 07/14/20 21:55 COVID-19 Eval Order Covid19 [facility] 07/15/20 01:04 SARS-CoV-2, RNA, NAAT NEGATIVE (NEGATIVE) 07/15/20 01:[address] head initial read: Involutional and chronic small vessel ischemic changes. Chest x-ray as per my interpretation atelectasis, possible infiltrate left
[2020-07-15 02:43] LABS: Magnesium 2.7 mg/dl (1.8-2.4)
[2020-07-15] MEDS ORDERED: GLUCOSE 10 TABS/TUBE PO PRN (03:38)
[2020-07-15] MEDS ORDERED: GLUCOSE 40% GEL 15 GM TUBE PO PRN (03:38)
[2020-07-15] MEDS ORDERED: GLUCAGON FOR INJ 1 MG VIAL SQ PRN (03:38)
[2020-07-15] MEDS ORDERED: CARBOHYDRATES FOR HYPOGLYCEMIA PO PRN (03:38)
[2020-07-15] MEDS ORDERED: DEXTROSE 50% 50 ML SYRINGE IV PRN (03:38)
[2020-07-15] MEDS ORDERED: ACETAMINOPHEN 325 MG TAB PO PRN (03:38)
[2020-07-15] MEDS ORDERED: PROMETHAZINE HCL 6.25 MG in SODIUM CHLORIDE 0.9% 50 ML IV PRN (03:38)
[2020-07-15] MEDS ORDERED: INSULIN GLARGINE SOLOSTAR 100 UNITS/ML 3 ML PEN SC STA (03:38)
[2020-07-15 05:07] LABS: Appearance Urine Clear (Clear); Bilirubin Urine Negative (Negative); Blood Urine Negative (Negative); Color Urine Yellow; Glucose Urine UA 3+ (Negative); Ketones Urine Trace (Negative); Leukocyte Esterase Urine Negative (Negative); Nitrite Urine Negative (Negative); Protein Urine Negative (Negative); Specific Gravity Urine 1.035 (1.000-1.030); Urobilinogen Urine Negative (Negative)
[2020-07-15] MEDS: INSULIN ASPART 100 UNITS/ML 3 ML PEN SC SCH ×5 (05:10→21:31)
--- NOTE | 2020-07-15 07:26 | CT Scan Report ---
CT OF THE HEAD WITHOUT CONTRAST CLINICAL HISTORY: Fall. Altered mental status. COMPARISON STUDY: Head CT July 05, 2020. CT DOSE: 537.48 mGy.cm TECHNIQUE: Helical axial images of the head were obtained without IV contrast. Automated exposure con trol was utilized for the study. A dose lowering technique was utilized adhering to the principles o f ALARA. FINDINGS: No acute intracranial hemorrhage, midline shift or mass effect is present. White matter hyp odensities are unchanged and suggest small vessel disease. The ventricular system is unremarkable. Th e basal cisterns are patent. No extra-axial collections are present. There are no findings to suggest acute dural sinus thrombosis or acute territorial infarct. No significant calvarial abnormalities ar e present. Visualized portions of the sinuses and mastoid air cells are clear. IMPRESSION: 1. No acute intracranial findings. 2. No calvarial fracture. ACT 112: Negative or not required by law. Electronically signed by: Vikash Smith M.D. 07/15/2020 7:25 AM
[2020-07-15 07:37] LABS: Hematocrit (blood only) 41.4 % (42-52); Hemoglobin 13.9 g/dL (14.0-18.0); Mean Corpuscular Hemoglobin 32.9 pg (25-34); Mean Corpuscular Hgb Conc 33.6 g/dL (32-36); Mean Corpuscular Volume 98.1 fL (80-100); RDW Standard Deviation 57.5 fL (36.4-46.3); Red Blood Count 4.22 M/uL (4.7-6.1); White Blood Count 3.61 K/uL (4.8-10.8)
--- NOTE | 2020-07-15 08:03 | XRay Report ---
XR chest 1V portable HISTORY: wheeze COMPARISON: Chest 07/05/2020. FINDINGS: No pneumothorax. No pleural effusions. The heart remains mildly enlarged. There are small p atchy and reticulonodular density seen within the lung bases. This has slightly progressed. The upper lung zones remain clear. No evidence for pulmonary edema. Small hiatus hernia is again noted. There is an aortic valve stent present. No evidence for pulmonary edema. Mild chronic interstitial thickeni ng persists. IMPRESSION: Slight progression of the small patchy and reticulonodular densities within the lung bases. This coul d represent a developing pneumonitis. ACT 112: Negative or not required by law. Electronically signed by: Freedom Regan M.D. 07/15/2020 8:02 AM
[2020-07-15 08:04] LABS: Platelet Count 45 K/uL (130-400)
[2020-07-15 08:05] LABS: Basophils # (auto) 0.03 K/uL (0-0.2); Basophils % (auto) 0.8 %; Eosinophils # (auto) 0.22 K/uL (0-0.5); Eosinophils % (auto) 6.1 %; Lymphocytes # (auto) 0.87 K/uL (1.2-3.4); Lymphocytes % (auto) 24.1 %; Monocytes # (auto) 0.44 K/uL (0.11-0.59); Monocytes % (auto) 12.2 %; Neutrophils # (auto) 2.05 K/uL (1.4-6.5); Neutrophils % (auto) 56.8 %
[2020-07-15 08:09] LABS: Albumin Level 2.5 gm/dl (3.4-5.0); BUN Creatinine Ratio 11.2 (10-20); Calcium 8.6 mg/dl (8.5-10.1); Creatinine Clr Calc Pharmacy 56.2 ml/min; Est GFR (African American) 83.5; Magnesium 2.3 mg/dl (1.8-2.4); Potassium 3.8 mmol/L (3.5-5.1)
[2020-07-15 08:12] LABS: Albumin Globulin Ratio 0.8 (0.9-2); Bilirubin,Total 1.1 mg/dl (0.2-1); Globulin 3.1 gm/dl (2.5-4.0); Phosphorus 2.8 mg/dl (2.5-4.9); Total Protein 5.6 gm/dl (6.4-8.2)
[2020-07-15] MEDS: FLUTICASONE PROPIONATE NA SPR 16 GM BTL SCH (08:24)
[2020-07-15] MEDS: PANTOprazole 40 MG TAB PO SCH ×2 (08:26→21:33)
[2020-07-15] MEDS: ESCITALOPRAM OXALATE 10 MG TAB PO SCH (08:26)
[2020-07-15] MEDS: FERROUS GLUCONATE 324 MG TAB PO SCH ×2 (08:27→21:33)
[2020-07-15] MEDS: FOLIC ACID 1 MG TAB PO SCH (08:27)
[2020-07-15] MEDS: METOPROLOL TARTRATE 25 MG TAB PO SCH ×2 (08:27→21:37)
[2020-07-15] MEDS: TAMSULOSIN HCL 0.4 MG CAP PO SCH (08:27)
[2020-07-15] MEDS: rifAXIMin 550 MG TABLET PO SCH ×2 (08:27→21:33)
[2020-07-15] MEDS: POTASSIUM CHLORIDE 20 MEQ TABCR PO SCH (08:27)
[2020-07-15] MEDS: LACTULOSE SYRUP 30 GM/45 ML UDP PO SCH ×4 (08:32→21:30)
[2020-07-15] MEDS ORDERED: INSULIN GLARGINE SOLOSTAR 100 UNITS/ML 3 ML PEN SC SCH (09:00)
[2020-07-15] MEDS ORDERED: LACTULOSE SYRUP 20 GM/30 ML UDC PO SCH (09:00)
--- NOTE | 2020-07-15 10:08 | Gastrointestinal Consultation ---
Date of Consultation July 15, 2020 Assessment & Plan (1) Hepatic encephalopathy: (2) Cirrhosis of liver not due to alcohol: Pt is a 79 y/o male w NAFLD cirrhosis, admitted currently w hepatic encephalopathy suspected to be related to recent decrease in Lactulose dose. Mental status improved today and ammonia level has normalized. Infectious workup so far negative, though ? pneumonitis on CXR. - Rifaximin 550mg BID + Lactulose 30g QID (titrate for goal 3-5 BMs daily) - Has outpt f/u on 07/22 w myself in GI clinic - No additional GI plans while inpt and will sign off; pls recall prn Supervising Physician Co-Signing Physician Notes I performed a history and physical examination of the patient today, including specifically on physical exam - soft abdomen. I have discussed the patient's management with the advanced practitioner. Please refer to the nurse practitioner's note for the documented findings and plan of care. Treat with Lactulose and Xifaxan. Recall Gi if needed. History of Present Illness Reason for Consultation: Encephalopathy Requesting Physician: Dr. Saji Shin Attending Physician: Dr. Bernabe Salomon History of Present Illness Pt is a 79 y/o male w hx of NAFLD cirrhosis, renal insufficiency, who was brought to hospital from personal retirement for increasing confusion. He has hx of hepatic encephalopathy suspected to be related to medical non compliance. Rec ently noted that his Lactulose dose was decreased at the home for diarrhea concerns and possible dehydration. On eval, his labs are w/o signs of leukocytosis, LFTs stable. Ammonia level elevated in 100s, today decreased to 29. UA w/o signs of infection, CT head unremarkable. CXR w possible developing pneumonitis. COVID 19 negative. He is afebrile overnight. He denies abd pain, n/v. He did note that his bowels aren't moving much recently. Stools black (on iron) but not tarry or bloody Allergies Allergy/AdvReac Type Severity Reaction Status Date / Time PRASHANT Inhibitors Allergy Severe ANGIOEDEMA Verified 07/14/20 21:35 from 10/10/11 ED adm lisinopril Allergy Severe Edema - Verified 07/14/20 21:35 face, lips and tongue simvastatin Allergy Unknown RASH, SORE Verified 07/14/20 21:35 ALL OVER. 2013: Uses Crestor Home Medications Home Medications Medication Instructions Recorded Confirmed Type empagliflozin [Jardiance] 25 mg PO DAILY@0800 01/14/19 07/14/20 History ferrous gluconate 324 mg PO BID 01/14/19 07/14/20 History folic acid 1 mg PO DAILY@0800 01/14/19 07/14/20 History metoprolol tartrate 25 mg PO BID 01/14/19 07/14/20 History rifaximin 550 mg PO BID 01/14/19 07/14/20 History tamsulosin 0.4 mg PO DAILY@0800 01/14/19 07/14/20 History albuterol sulfate [Ventolin HFA] 2 puff INHALATION Q4H PRN 02/20/19 07/14/20 History fluticasone propionate [Flonase 1 spray INTRANASAL DAILY 02/20/19 07/14/20 History Allergy Relief] furosemide [Lasix] 20 mg PO DAILY@0800 02/20/19 07/14/20 History magnesium oxide 400 mg PO BID 02/20/19 07/14/20 History nitroglycerin 0.4 mg SUBLINGUAL UD PRN 02/20/19 07/14/20 History ipratropium-albuterol 3 ml INHALATION QID 01/13/20 07/14/20 History Lantus Solostar U-100 Insulin 28 unit SUBCUT BID 03/16/20 07/14/20 History escitalopram oxalate 5 mg PO DAILY@0800 05/08/20 07/14/20 History pantoprazole 40 mg PO BID 05/08/20 07/14/20 History acetaminophen [Tylenol] 650 mg PO Q4 PRN 06/19/20 07/14/20 History insulin aspart U-100 [Novolog 0 unit SUBCUT TID 06/19/20 07/14/20 History Flexpen U-100 Insulin] lactulose 60 g PO TID #0 ml 07/08/20 07/14/20 Rx potassium chloride 20 meq PO DAILY@0800 07/14/20 07/14/20 History Patient History Medical History Anemia Anxiety Aortic stenosis "severe on echo 04/2017" On 07/03/16 17:13 Cande Poon wrote "severe on echo 04/2016" CAD (coronary artery disease) "2009 - RCA stent 2012 - RCA stent restenosis, s/p AMOS to RCA" Cirrhosis of liver not due to alcohol CKD (chronic kidney disease), stage III Diverticulosis Dyslipidemia GERD (gastroesophageal reflux disease) Hepatic encephalopathy Hiatal hernia HTN (hypertension) Hyperammonemia Insulin dependent diabetes mellitus Osteoarthritis Portal hypertensive gastropathy Transaminitis Surgical History H/O hemorrhoidectomy History of cardiac catheterization NO STENTS History of colonoscopy History of lumbar laminectomy History of tooth extraction Family History Son Family history of diabetes mellitus Family/Other Family hx of colon cancer Social History Smoking Status: Former smoker Smoking End Date: 20 years ago; Second Hand Exposure: No; Do You Dip or Chew Tobacco: No; Tobacco Cessation Education Requested by Patient: No Hx Alcohol Use: No Hx Substance Use: No Preferred Language: Tamazight Communication Ability: Impaired 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 Beliefs That Will Affect Care: None marital status: / Current Living Situation: Care Home Current Living Situation Comment: [facility] How many Children do You have: 3 Other Information That Helps Us Care for You: No Feels Safe at Home: Yes Safety Concerns: Feels Safe At This Time Assistive Devices: Glasses Review of Systems Review of Systems: All systems reviewed & are unremarkable except as noted in HPI & below Physical Exam Constitutional: WD/WN, vitals as above well groomed, cooperative and comfortable Eyes: PERRL, conjunctivae normal, anicteric sclerae ENMT: external ear and nose normal, oropharynx normal Respiratory: normal respiratory effort, lungs clear to auscultation Cardiovascular: RRR, no murmur, no edema Gastrointestinal (Abdomen): normal bowel sounds, soft, nontender, no hepatosplenomegaly Skin: no rashes, warm and dry no jaundice Neurologic: Motor/Sensory: + asterixis Psychiatric: Orientation: alert, oriented to person, oriented to place and cooperative Lymphatic: no lymphedema Results & Data ([facility]) Vital Signs (Past 12 Hours) Vital Signs Temp Pulse Pulse Resp BP BP BP 07/15/20 08:02 37.0 C 66 18 132/76 07/15/20 07:20 64 07/15/20 04:22 36.9 C 59 L 18 119/66 07/15/20 03:40 36.7 C 57 L 18 154/72 H 07/15/20 02:31 63 13 134/62 07/15/20 02:30 60 13 07/15/20 02:00 58 L 17 152/62 H 07/15/20 01:31 57 L 13 151/58 H 07/15/20 01:30 57 L 17 07/15/20 01:02 57 L 17 07/15/20 01:01 56 L 15 143/57 H 07/15/20 01:00 58 L 17 07/15/20 00:31 60 18 159/93 H 07/15/20 00:30 59 L 20 07/15/20 00:01 59 L 17 158/72 H 07/15/20 00:00 58 L 15 07/14/20 23:31 57 L 16 07/14/20 23:30 56 L 16 160/66 H 07/14/20 23:00 56 L 16 148/63 H 07/14/20 22:52 55 L 15 124/56 L 07/14/20 22:30 58 L 15 124/56 L 07/14/20 22:14 56 L 15 142/58 H Pulse Ox 07/15/20 08:02 98 07/15/20 07:20 07/15/20 04:22 94 07/15/20 03:40 96 07/15/20 02:31 96 07/15/20 02:30 95 07/15/20 02:00 96 07/15/20 01:31 97 07/15/20 01:30 97 07/15/20 01:02 96 07/15/20 01:01 95 07/15/20 01:00 07/15/20 00:31 07/15/20 00:30 07/15/20 00:01 92 07/15/20 00:00 07/14/20 23:31 94 07/14/20 23:30 94 07/14/20 23:00 93 07/14/20 22:52 95 07/14/20 22:30 93 07/14/20 22:14 95
--- NOTE | 2020-07-15 10:18 | Hospitalist Progress Note ---
Date of Service July 15, 2020 Assessment & Plan (1) Hepatic encephalopathy: NAFLD (n-Alcoholic fatty liver disease) cirrhosis Hyperammonemia -as per ED note on 07/14/2020: "79-year-old male presents emergency department for altered mental status. Patient is from [facility]. Per the staff he has been increasingly confused. He has a history of hepatic encephalopathy. They also state he fell today." -admission serum ammonia 145 -urine analysis normal -Chest X ray does not have pneumonia -no fever, blood cultures drawn -gastroenterology consult requested by admitting hospitalist for recurrent hepatic encephalopathy -telemetry reviewed and no acute telemetry events, patient can be transferred off telemetry -07/15/2020: patient awake and alert, poor eye contact. short answers in speech. sometimes, patient takes a couple seconds to focus on answering question. able to follow directions. daytime hospitalist updated patient's family member Irena ([phone], she is daughter in law, patient's son Luca also uses same phone number). serum ammonia normalized on 07/15/2020 with bowel movements as confirmed by nursing staff while on lactulose 30 mg QID and rifaximin 550 mg BID -PT/OT evaluations, speech and swallow consult, dysphagia screening, advance diet as tolerated to low sodium and diabetic diet, case management consult Thrombocytopenia -chronic Abdominal hernia -do not appreciate abdomen distension -there appears to be a hernia versus swelling to the left of umbilicus on abdomen exam -consider abdominal imaging Type 2 diabetes mellitus with alf current use of insulin -recent hemoglobin A1c of 6.23 June 2020 -on sliding scale insulin -currently on Lantus 5 units BID, titrate up as needed based on blood sugars and appetite Hypertension, History of Coronary artery disease with stent, history of aortic stenosis status post AVR -resume home dose furosemide 20 mg daily DVT prophylaxis. SCDs because of thrombocytopenia DNR as per the patient's prior wishes as per [id number], Ms. Irena Quintero as per admitting hospitalist Admission and Anticipated Discharge Date Admission Date: July 15, 2020 Subjective awake and alert, poor eye contact. short answers in speech. sometimes, patient takes a couple seconds to focus on answering question. able to follow directions. patient denies acute pain. denies other symptoms Review of Systems Review of Systems: All systems reviewed & are unremarkable except as noted in Subjective Physical Exam Constitutional: cooperative Eyes: PERRL, conjunctivae normal, anicteric sclerae EOM intact bilaterally ENMT: external ear and nose normal, oropharynx normal Neck: normal visual inspection Respiratory: normal respiratory effort, lungs clear to auscultation Cardiovascular: Rate/Rhythm: regular rhythm and + bradycardic Gastrointestinal (Abdomen): Inspection/Auscultation: normal bowel sounds - do not appreciate abdomen distension -there appears to be a hernia versus swelling to the left of umbilicus on abdomen exam Musculoskeletal: Head/Neck/Chest: normocephalic and head atraumatic Neurologic: PERRL, EOMI, accommodation nl, no face palsy, no dysarthria CN's II-XI intact bilaterally Psychiatric: Orientation: alert and cooperative awake and alert, poor eye contact. short answers in speech. sometimes, patient takes a couple seconds to focus on answering question. able to follow directions. Results & Data Results & Data ([facility]) Vital Signs (Past 12 Hours) Vital Signs Temp Pulse Pulse Resp BP BP BP 07/15/20 08:02 37.0 C 66 18 132/76 07/15/20 07:20 64 07/15/20 04:22 36.9 C 59 L 18 119/66 07/15/20 03:40 36.7 C 57 L 18 154/72 H 07/15/20 02:31 63 13 134/62 07/15/20 02:30 60 13 07/15/20 02:00 58 L 17 152/62 H 07/15/20 01:31 57 L 13 151/58 H 07/15/20 01:30 57 L 17 07/15/20 01:02 57 L 17 07/15/20 01:01 56 L 15 143/57 H 07/15/20 01:00 58 L 17 07/15/20 00:31 60 18 159/93 H 07/15/20 00:30 59 L 20 07/15/20 00:01 59 L 17 158/72 H 07/15/20 00:00 58 L 15 07/14/20 23:31 57 L 16 07/14/20 23:30 56 L 16 160/66 H 07/14/20 23:00 56 L 16 148/63 H 07/14/20 22:52 55 L 15 124/56 L 07/14/20 22:30 58 L 15 124/56 L Pulse Ox 07/15/20 08:02 98 07/15/20 07:20 07/15/20 04:22 94 07/15/20 03:40 96 07/15/20 02:31 96 07/15/20 02:30 95 07/15/20 02:00 96 07/15/20 01:31 97 07/15/20 01:30 97 07/15/20 01:02 96 07/15/20 01:01 95 07/15/20 01:00 07/15/20 00:31 07/15/20 00:30 07/15/20 00:01 92 07/15/20 00:00 07/14/20 23:31 94 07/14/20 23:30 94 07/14/20 23:00 93 07/14/20 22:52 95 07/14/20 22:30 93
[2020-07-15] MEDS: FUROSEMIDE 20 MG TAB PO SCH (11:47)
[2020-07-15] MEDS: INSULIN GLARGINE SOLOSTAR 100 UNITS/ML 3 ML PEN SC SCH (21:31)
--- NOTE | 2020-07-16 08:38 | Hospitalist Progress Note ---
Date of Service July 16, 2020 Assessment & Plan (1) Hepatic encephalopathy: NAFLD (n-Alcoholic fatty liver disease) cirrhosis Hyperammonemia -as per ED note on 07/14/2020: "79-year-old male presents emergency department for altered mental status. Patient is from [facility]. Per the staff he has been increasingly confused. He has a history of hepatic encephalopathy. They also state he fell today." -admission serum ammonia 145 -urine analysis normal -Chest X ray does not have pneumonia -no fever, blood cultures drawn -gastroenterology consult requested by admitting hospitalist for recurrent hepatic encephalopathy -telemetry reviewed and no acute telemetry events, patient can be transferred off telemetry -07/15/2020: patient awake and alert, poor eye contact. short answers in speech. sometimes, patient takes a couple seconds to focus on answering question. able to follow directions. daytime hospitalist updated patient's family member Irena ([phone], she is daughter in law, patient's son Luca also uses same phone number). serum ammonia normalized on 07/15/2020 with bowel movements as confirmed by nursing staff while on lactulose 30 mg QID and rifaximin 550 mg BID -07/16/2020 updates: Patient is slow of speech but responds to questions appropriately. He follows commands. appears to have difficulty for patient to sit up right on his own and he needed assistance. He is able to raise the legs when laying on the bed. Patient has yet to be evaluated by PT/OT. Patient denies problems with eating the hospital diet. He denies abdominal pain. Patient's abdomen is soft. There no longer appears to be any anatomical deformities around umbilicus on palpation 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 -follow the 07/16/2020 labs which are pending Thrombocytopenia -chronic Abdominal hernia? -do not appreciate abdomen distension -there appears to be a hernia versus swelling to the left of umbilicus on initial abdomen exam but not palpable on the following day exam Type 2 diabetes mellitus with penitentiary current use of insulin -recent hemoglobin A1c of 6.23 June 2020 -on sliding scale insulin -currently on Lantus 5 units BID, titrate up as needed based on blood sugars and appetite Hypertension, History of Coronary artery disease with stent, history of aortic stenosis status post AVR -resume home dose furosemide 20 mg daily DVT prophylaxis. SCDs because of thrombocytopenia DNR as per the patient's prior wishes as per [id number], Ms. Irena Quintero as per admitting hospitalist Admission and Anticipated Discharge Date Admission Date: July 15, 2020 Subjective Patient is slow of speech but responds to questions appropriately. He follows commands. appears to have difficulty for patient to sit up right on his own and he needed assistance. He is able to raise the legs when laying on the bed. Patient has yet to be evaluated by PT/OT. Patient denies problems with eating the hospital diet. He denies abdominal pain. Patient's abdomen is soft. There no longer appears to be any anatomical deformities around umbilicus on palpation 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. Physical Exam Constitutional: cooperative Eyes: PERRL, conjunctivae normal, anicteric sclerae EOM intact bilaterally ENMT: external ear and nose normal, oropharynx normal Neck: normal visual inspection Respiratory: normal respiratory effort, lungs clear to auscultation Cardiovascular: Rate/Rhythm: regular rhythm and + bradycardic Gastrointestinal (Abdomen): Inspection/Auscultation: normal bowel sounds Musculoskeletal: Head/Neck/Chest: normocephalic and head atraumatic Neurologic: PERRL, EOMI, accommodation nl, no face palsy, no dysarthria CN's II-XI intact bilaterally Psychiatric: Orientation: alert and cooperative Results & Data Results & Data ([facility]) Vital Signs (Past 12 Hours) Vital Signs Temp Pulse Resp BP BP Pulse Ox 07/16/20 07:09 36.7 C 57 L 16 107/52 L 95 07/15/20 23:48 36.9 C 56 L 16 151/77 H 93 07/15/20 21:36 54 L 131/70
[2020-07-16] MEDS: INSULIN ASPART 100 UNITS/ML 3 ML PEN SC SCH ×4 (08:50→21:46)
[2020-07-16] MEDS: FLUTICASONE PROPIONATE NA SPR 16 GM BTL SCH (08:51)
[2020-07-16] MEDS: INSULIN GLARGINE SOLOSTAR 100 UNITS/ML 3 ML PEN SC SCH ×2 (08:51→21:47)
[2020-07-16] MEDS: rifAXIMin 550 MG TABLET PO SCH ×2 (08:52→20:00)
[2020-07-16] MEDS: LACTULOSE SYRUP 30 GM/45 ML UDP PO SCH ×4 (08:52→19:58)
[2020-07-16] MEDS: ESCITALOPRAM OXALATE 10 MG TAB PO SCH (08:53)
[2020-07-16] MEDS: FUROSEMIDE 20 MG TAB PO SCH (08:53)
[2020-07-16] MEDS: TAMSULOSIN HCL 0.4 MG CAP PO SCH (08:53)
[2020-07-16] MEDS: FERROUS GLUCONATE 324 MG TAB PO SCH ×2 (08:53→19:58)
[2020-07-16] MEDS: POTASSIUM CHLORIDE 20 MEQ TABCR PO SCH (08:53)
[2020-07-16] MEDS: FOLIC ACID 1 MG TAB PO SCH (08:55)
[2020-07-16] MEDS: PANTOprazole 40 MG TAB PO SCH ×2 (09:05→19:59)
[2020-07-16 09:08] LABS: Hematocrit (blood only) 43.3 % (42-52); Mean Corpuscular Hemoglobin 33.8 pg (25-34); Mean Corpuscular Hgb Conc 34.6 g/dL (32-36); Mean Corpuscular Volume 97.5 fL (80-100); RDW Coefficient of Variation 15.7 % (11.5-14.5); RDW Standard Deviation 56.6 fL (36.4-46.3); Red Blood Count 4.44 M/uL (4.7-6.1); White Blood Count 4.68 K/uL (4.8-10.8)
[2020-07-16] MEDS: METOPROLOL TARTRATE 25 MG TAB PO SCH ×2 (09:08→20:02)
[2020-07-16 09:42] LABS: Albumin Level 2.7 gm/dl (3.4-5.0); BUN Creatinine Ratio 11.8 (10-20); Calcium 8.9 mg/dl (8.5-10.1); Creatinine Clr Calc Pharmacy 48.3 ml/min; Est GFR (African American) 69.5; Estimated Average Glucose 134 mg/dl; Hemoglobin A1C 6.3 % (4.5-5.6); Magnesium 2.2 mg/dl (1.8-2.4); Platelet Count 59 K/uL (130-400)
[2020-07-16 09:46] LABS: Albumin Globulin Ratio 0.8 (0.9-2); Bilirubin,Total 1.7 mg/dl (0.2-1); Globulin 3.3 gm/dl (2.5-4.0); Phosphorus 2.7 mg/dl (2.5-4.9)
[2020-07-16 09:49] LABS: Basophils # (auto) 0.03 K/uL (0-0.2); Basophils % (auto) 0.6 %; Eosinophils # (auto) 0.31 K/uL (0-0.5); Eosinophils % (auto) 6.6 %; Immature Granulocytes # (auto) 0.01 K/uL (0.00-0.02); Immature Granulocytes % (auto) 0.2 %; Lymphocytes # (auto) 1.19 K/uL (1.2-3.4); Lymphocytes % (auto) 25.4 %; Monocytes # (auto) 0.46 K/uL (0.11-0.59); Monocytes % (auto) 9.8 %; Neutrophils # (auto) 2.68 K/uL (1.4-6.5); Neutrophils % (auto) 57.4 %
[2020-07-17 08:23] LABS: Albumin Level 2.5 gm/dl (3.4-5.0); BUN Creatinine Ratio 13.2 (10-20); Calcium 8.8 mg/dl (8.5-10.1); Creatinine Clr Calc Pharmacy 51.5 ml/min; Est GFR (African American) 75.1; Est GFR (Non-African American) 64.8; Magnesium 2.2 mg/dl (1.8-2.4); Phosphorus 2.7 mg/dl (2.5-4.9); Potassium 3.7 mmol/L (3.5-5.1)
[2020-07-17 08:25] LABS: Albumin Globulin Ratio 0.9 (0.9-2); Bilirubin,Total 1.1 mg/dl (0.2-1); Globulin 2.9 gm/dl (2.5-4.0); Total Protein 5.4 gm/dl (6.4-8.2)
[2020-07-17] MEDS: INSULIN ASPART 100 UNITS/ML 3 ML PEN SC SCH ×4 (09:10→21:50)
[2020-07-17] MEDS: INSULIN GLARGINE SOLOSTAR 100 UNITS/ML 3 ML PEN SC SCH ×2 (09:11→22:16)
[2020-07-17] MEDS: LACTULOSE SYRUP 30 GM/45 ML UDP PO SCH ×4 (09:12→21:49)
[2020-07-17] MEDS: TAMSULOSIN HCL 0.4 MG CAP PO SCH (09:13)
[2020-07-17] MEDS: FOLIC ACID 1 MG TAB PO SCH (09:13)
[2020-07-17] MEDS: ESCITALOPRAM OXALATE 10 MG TAB PO SCH (09:13)
[2020-07-17] MEDS: FUROSEMIDE 20 MG TAB PO SCH (09:13)
[2020-07-17] MEDS: rifAXIMin 550 MG TABLET PO SCH ×2 (09:13→21:55)
[2020-07-17] MEDS: PANTOprazole 40 MG TAB PO SCH ×2 (09:14→21:52)
[2020-07-17] MEDS: METOPROLOL TARTRATE 25 MG TAB PO SCH ×2 (09:14→21:51)
[2020-07-17] MEDS: FLUTICASONE PROPIONATE NA SPR 16 GM BTL SCH (09:15)
[2020-07-17] MEDS: FERROUS GLUCONATE 324 MG TAB PO SCH ×2 (09:15→21:50)
[2020-07-17] MEDS: POTASSIUM CHLORIDE 20 MEQ TABCR PO SCH (09:15)
--- NOTE | 2020-07-17 10:05 | Hospitalist Progress Note ---
Date of Service July 17, 2020 Assessment & Plan (1) Hepatic encephalopathy: NAFLD (n-Alcoholic fatty liver disease) cirrhosis Hyperammonemia -as per ED note on 07/14/2020: "79-year-old male presents emergency department for altered mental status. Patient is from [facility]. Per the staff he has been increasingly confused. He has a history of hepatic encephalopathy. They also state he fell today." -admission serum ammonia 145 elevated but patient has had high levels in the past -urine analysis normal -Chest X ray does not have pneumonia -no fever, blood cultures drawn on 07/15/2020 with no growth -gastroenterology consult evaluated for recurrent hepatic encephalopathy; tele metry reviewed and no acute telemetry events, patient can be transferred off telemetry on 06/20/2020 -07/15/2020: patient awake and alert, poor eye contact. short answers in speech. sometimes, patient takes a couple seconds to focus on answering question. able to follow directions. daytime hospitalist updated patient's family member Irena ([phone], she is daughter in law, patient's son Luca also uses same phone number). -07/16/2020 updates: Patient is slow of speech but responds to questions appropriately. He follows commands. appears to have difficulty for patient to sit up right on his own and he needed assistance. He is able to raise the legs when laying on the bed. Patient has yet to be evaluated by PT/OT. Patient denies problems with eating the hospital diet. He denies abdominal pain. Patient's abdomen is soft. There no longer appears to be any anatomical deformities around umbilicus on palpation 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 -in regards to the ammonia levels serum ammonia 145 on 07/14/2020; appeared to be aberrantly normalized on 07/15/2020 as 29.2; on 07/16/20 was 139.8, on 07/17/2020 as 111.3 -continue lactulose 30 mg QID and rifaximin 550 mg BID -Clinically, patient continues to answer questions appropriately on 07/17/2020. his persistently elevated ammonia levels does not appear to correlate with mental status. no acute pain, on room air and no shortness of breath. patient denies other symptoms. 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 SCDs because of thrombocytopenia DNR/DNI as per the patient's prior wishes as per [id number], Ms. Irena Quintero as per admitting hospitalist Admission and Anticipated Discharge Date Admission Date: July 15, 2020 Subjective -Clinically, patient continues to answer questions appropriately on 07/17/2020. his persistently elevated ammonia levels does not appear to correlate with mental status. no acute pain, on room air and no shortness of breath. patient denies other symptoms. 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 therapy Review of Systems 2 Review of Systems: All systems reviewed & are unremarkable except as noted in Subjective Physical Exam Constitutional: cooperative Eyes: PERRL, conjunctivae normal, anicteric sclerae EOM intact bilaterally ENMT: external ear and nose normal, oropharynx normal Neck: normal visual inspection Respiratory: normal respiratory effort, lungs clear to auscultation Cardiovascular: Rate/Rhythm: regular rhythm and + bradycardic Gastrointestinal (Abdomen): Inspection/Auscultation: normal bowel sounds Musculoskeletal: Head/Neck/Chest: normocephalic and head atraumatic Neurologic: PERRL, EOMI, accommodation nl, no face palsy, no dysarthria CN's II-XI intact bilaterally Psychiatric: Orientation: alert and cooperative Results & Data Results & Data ([facility]) Vital Signs (Past 12 Hours) Vital Signs Temp Pulse Pulse Resp BP Pulse Ox 07/17/20 09:27 58 L 07/17/20 07:59 36.5 C 60 16 110/68 97 07/17/20 00:45 36.9 C 59 L 16 127/71 94
--- NOTE | 2020-07-18 08:38 | Hospitalist Progress Note ---
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 Patient is from [facility]. Per the staff he has been increasingly confused. He has a history of hepatic encephalopathy. They also state he fell today." -admission serum ammonia 145 elevated but patient has had high levels in the past -urine analysis normal -Chest X ray does not have pneumonia -no fever, blood cultures drawn on 07/15/2020 with no growth -gastroenterology consult evaluated for recurrent hepatic encephalopathy; tele metry reviewed and no acute telemetry events, patient can be transferred off telemetry on 06/20/2020 -07/15/2020: patient awake and alert, poor eye contact. short answers in speech. sometimes, patient takes a couple seconds to focus on answering question. able to follow directions. daytime hospitalist updated patient's family member Irena ([phone], she is daughter in law, patient's son Luca also uses same phone number). -07/16/2020 updates: Patient is slow of speech but responds to questions appropriately. He follows commands. appears to have difficulty for patient to sit up right on his own and he needed assistance. He is able to raise the legs when laying on the bed. Patient has yet to be evaluated by PT/OT. Patient denies problems with eating the hospital diet. He denies abdominal pain. Patient's abdomen is soft. There no longer appears to be any anatomical deformities around umbilicus on palpation 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 -in regards to the ammonia levels serum ammonia 145 on 07/14/2020; appeared to be aberrantly normalized on 07/15/2020 as 29.2; on 07/16/20 was 139.8, on 07/17/2020 as 111.3 -continue lactulose 30 mg QID and rifaximin 550 mg BID -Clinically, patient continues to answer questions appropriately on 07/17/2020. his persistently elevated ammonia levels does not appear to correlate with mental status. no acute pain, on room air and no shortness of breath. patient denies other symptoms. 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, corrections caseworker is working towards placement to a residential facility for further physical therapy -07/18/2020: patient seen and examined after he was finished placing the food orders. Patient answers questions appropriately. He denies acute pain. Continues to be breathing on room air. Patient does not report or any acute symptoms. Hospitalist explain to patient that corrections caseworker and his family are still working together to coordinate where patient would get for physical therapy after the hospital stay. Thrombocytopenia -chronic Abdominal hernia? -do not appreciate abdomen distension -there appears to be a hernia versus swelling to the left of umbilicus on initial abdomen exam but not palpable on the following day exam Type 2 diabetes mellitus with intermediate current use of insulin -recent hemoglobin A1c of 6.23 June 2020 -on sliding scale insulin -currently on Lantus 5 units BID and appears to be appropriate Hypertension, History of Coronary artery disease with stent, history of aortic stenosis status post AVR -on home dose furosemide 20 mg daily DVT prophylaxis. SCDs because of thrombocytopenia DNR/DNI as per the patient's prior wishes as per [id number], Ms. Irena Quintero as per admitting hospitalist Admission and Anticipated Discharge Date Admission Date: July 15, 2020 Subjective 07/18/2020: patient seen and examined after he was finished placing the food orders. Patient answers questions appropriately. He denies acute pain. Continues to be breathing on room air. Patient does not report or any acute symptoms. Hospitalist explain to patient that corrections caseworker and his family are still working together to coordinate where patient would get for physical therapy after the hospital stay. Review of Systems Review of Systems: All systems reviewed & are unremarkable except as noted in Subjective Physical Exam Constitutional: cooperative Eyes: PERRL, conjunctivae normal, anicteric sclerae EOM intact bilaterally ENMT: external ear and nose normal, oropharynx normal Neck: normal visual inspection Respiratory: normal respiratory effort, lungs clear to auscultation Cardiovascular: Rate/Rhythm: regular rhythm and + bradycardic Gastrointestinal (Abdomen): Inspection/Auscultation: normal bowel sounds Musculoskeletal: Head/Neck/Chest: normocephalic and head atraumatic Neurologic: PERRL, EOMI, accommodation nl, no face palsy, no dysarthria CN's II-XI intact bilaterally Psychiatric: Orientation: alert and cooperative Results & Data Results & Data ([facility]) Vital Signs (Past 12 Hours) Vital Signs Temp Pulse Resp BP BP Pulse Ox 07/18/20 07:49 36.8 C 57 L 16 160/81 H 91 10/30/20 00:11 36.7 C 60 14 125/62 94 07/17/20 21:45 63 138/66 94
[2020-07-18] MEDS ORDERED: INSULIN GLARGINE SOLOSTAR 100 UNITS/ML 3 ML PEN SC SCH (09:00)
[2020-07-18] MEDS: INSULIN ASPART 100 UNITS/ML 3 ML PEN SC SCH ×2 (10:03→13:10)
[2020-07-18] MEDS: LACTULOSE SYRUP 30 GM/45 ML UDP PO SCH ×2 (10:08→13:12)
[2020-07-18] MEDS: POTASSIUM CHLORIDE 20 MEQ TABCR PO SCH (10:09)
[2020-07-18] MEDS: METOPROLOL TARTRATE 25 MG TAB PO SCH (10:09)
[2020-07-18] MEDS: FERROUS GLUCONATE 324 MG TAB PO SCH (10:09)
[2020-07-18] MEDS: PANTOprazole 40 MG TAB PO SCH (10:09)
[2020-07-18] MEDS: ESCITALOPRAM OXALATE 10 MG TAB PO SCH (10:10)
[2020-07-18] MEDS: FUROSEMIDE 20 MG TAB PO SCH (10:10)
[2020-07-18] MEDS: TAMSULOSIN HCL 0.4 MG CAP PO SCH (10:11)
[2020-07-18] MEDS: FOLIC ACID 1 MG TAB PO SCH (10:11)
[2020-07-18] MEDS: FLUTICASONE PROPIONATE NA SPR 16 GM BTL SCH (10:12)
[2020-07-18] MEDS: rifAXIMin 550 MG TABLET PO SCH (11:10)
--- NOTE | 2020-07-18 13:40 | Discharge Summary ---
Date of Service July 18, 2020 Admission HPI Per Admitting Provider History obtained from patient, family, and records. Limited history from patient secondary to disorientation. Medical history significant for cirrhosis secondary to nonalcoholic fatty liver disease, DM2, insulin requiring, CAD sp stenting, HTN, severe aortic stenosis status post AVR, chronic renal insufficiency (baseline creatinine of 1.3), past tobacco abuse. Recent confinement last week for hepatic encephalopathy. Patient lactulose dose increased to 60 mg p.o. 3 times daily on discharge. Yesterday patient noted to be increasingly confused at [facility]. Possible fall as per documentation. Compliant with medications. Dose decrease due to increase diarrhea and concern for dehydration as per outpatient documentation. Patient denies chest pain, S OB, cough, abdominal pain, black/bloody stools. Patient given Lactulose at the ER. MEDICAL HISTORY: As above. 2018 EGD showed portal hypertensive gastropathy; Colonoscopy showed diverticulosis, polyp, internal hemorrhoids SURGERIES: Hemorrhoidectomy, back surgery. Aortic valve replacement FAMILY HISTORY: Heart disease. Diabetes, stroke PERSONAL AND SOCIAL HISTORY: Past tobacco abuse. No chronic intake of alcoholic beverages. 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 Principal Diagnosis Hepatic encephalopathy Hyperammonemia NAFLD (non-Alcoholic fatty liver disease) cirrhosis Type 2 diabetes mellitus with jail current use of insulin Discharge Exam Constitutional cooperative Eyes PERRL, conjunctivae normal, anicteric sclerae EOM intact bilaterally ENMT external ear and nose normal, oropharynx normal Neck normal visual inspection Respiratory normal respiratory effort, lungs clear to auscultation Cardiovascular Rate/Rhythm: regular rhythm and + bradycardic Gastrointestinal (Abdomen) Inspection/Auscultation: normal bowel sounds Musculoskeletal Head/Neck/Chest: normocephalic and head atraumatic Neurologic PERRL, EOMI, accommodation nl, no face palsy, no dysarthria CN's II-XI intact bilaterally Psychiatric Orientation: alert and cooperative Discharge Data Allergies Allergy/AdvReac Type Severity Reaction Status Date / Time PRASHANT Inhibitors Allergy Severe ANGIOEDEMA Verified 07/14/20 21:35 from 10/10/11 ED adm lisinopril Allergy Severe Edema - Verified 07/14/20 21:35 face, lips and tongue simvastatin Allergy Unknown RASH, SORE Verified 07/14/20 21:35 ALL OVER. 2013: Uses Crestor Consultations 07/14/20 22:22 ED Decision to Admit Stat 07/15/20 03:38 Consult Gastroenterology Routine 07/15/20 10:08 Consult Case Management - Discharge Planning Routine 07/18/20 11:52 Consult Palliative Care Routine Ordered Studies 07/14/20 20:59 CT head/brain wo con Urgent Hospital Course (1) Hepatic encephalopathy: NAFLD (n-Alcoholic fatty liver disease) cirrhosis Hyperammonemia -as per ED note on 07/14/2020: "79-year-old male presents emergency department for altered mental status. Patient is from [facility]. Per the staff he has been increasingly confused. He has a history of hepatic encephalopathy. They also state he fell today." -admission serum ammonia 145 elevated but patient has had high levels in the past -urine analysis normal -Chest X ray does not have pneumonia -no fever, blood cultures drawn on 07/15/2020 with no growth -gastroenterology consult evaluated for recurrent hepatic encephalopathy; telemetry reviewed and no acute telemetry events, patient can be transferred off telemetry on 06/20/2020 -07/15/2020: patient awake and alert, poor eye contact. short answers in speech. sometimes, patient takes a couple seconds to focus on answering question. able to follow directions. daytime hospitalist updated patient's family member Irena ([phone], she is daughter in law, patient's son Luca also uses same phone number). -07/16/2020 updates: Patient is slow of speech but responds to questions appropriately. He follows commands. appears to have difficulty for patient to sit up right on his own and he needed assistance. He is able to raise the legs when laying on the bed. Patient has yet to be evaluated by PT/OT. Patient denies problems with eating the hospital diet. He denies abdominal pain. Patient's abdomen is soft. There no longer appears to be any anatomical deformities around umbilicus on palpation 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 -in regards to the ammonia levels serum ammonia 145 on 07/14/2020; appeared to be aberrantly normalized on 07/15/2020 as 29.2; on 07/16/20 was 139.8, on 07/17/2020 as 111.3 -continue lactulose 30 mg QID and rifaximin 550 mg BID -Clinically, patient continues to answer questions appropriately on 07/17/2020. his persistently elevated ammonia levels does not appear to correlate with mental status. no acute pain, on room air and no shortness of breath. patient denies other symptoms. 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, hospice case manager is working towards placement to a [facility] facility for further physical therapy -07/18/2020: discharge to [facility] for hospice level of care as per wishes of patient's family who helps him make the medical decisions. Discussed with patient about these plans but patient does not appear really to understand complex medical decisions despite being able to follow and respond to simpler questions. Discussed with palliative care Dr. Griffin that patient has been clinically stable in hospital but because of multiple co-morbidities including liver problems and older age that patient does have higher chance of mortality in the next 6 months to a year. science manager has coordinated for discharge to [facility] in context of patient's family wishes. Hospitalist have discharge medications and appointment visits scheduled as outpatient so that patient have options to continue medical therapies and followups Discharge medication changes of Lantus to be 20 units daily 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 sent electronically to [facility] which is on [address] [place] [address] and the preferred pharmacy of [facility]. Lactulose is also re-ordered as 60 grams (90 ml) TID with refill to ensure adequate outpatient quantity Patient should avoid acetaminophen as much as possible. because of liver dysfunction Continue other home medications scheduled appointments 07/22/2020 12:00 PM Provider MICHAEL Adam Department Gastroenterology, [facility] 07/24/2020 9:40 AM Provider Syd Becker MD Department [facility] 08/20/2020 3:00 PM Provider Cooper Hemphill, Department Cardiology, [facility] Thrombocytopenia -chronic Abdominal hernia? 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 discharge on Lantus 20 units daily based on estimates of BSG while inpatient Hypertension, History of Coronary artery disease with stent, history of aortic stenosis status post AVR -on home dose furosemide 20 mg daily DVT prophylaxis. SCDs because of thrombocytopenia DNR/DNI as per the patient's prior wishes as per [id number], Ms. 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 2 diabetes mellitus with long line teamster current use of insulin Condition on Discharge: Good Activity: Per Instructions section Lifting: Gradually increase as tolerated Bathing: No limitations Weightbearing: Full weightbearing Non-emergency contact: Primary Care Provider Call non-emergency contact if: you have any medication questions Follow-up/Referrals: Duglas Evans MD [Primary Care Provider] - Diet: Carb Consistent or DM2 and Heart Healthy Diet Texture: Easy to Chew Addtl Attending Provider Instructions: -07/18/2020: discharge to [facility] for hospice level of care as per wishes of patient's family who helps him make the medical decisions. Discussed with patient about these plans but patient does not appear really to understand complex medical decisions despite being able to follow and respond to simpler questions. Discussed with palliative care Dr. Griffin that patient has been clinically stable in hospital but because of multiple co-morbidities including liver problems and older age that patient does have higher chance of mortality in the next 6 months to a year. science manager has coordinated for discharge to [facility] in context of patient's family wishes. Hospitalist have discharge medications and appointment visits scheduled as outpatient so that patient have options to continue medical therapies and followups Discharge medication changes of Lantus to be 20 units daily 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 sent electronically to [facility] which is on [address], [place] [address] and the preferred pharmacy of [facility]. Lactulose is also re-ordered as 60 grams (90 ml) TID with refill to ensure adequate outpatient quantity Patient should avoid acetaminophen as much as possible. because of liver dysfunction Continue other home medications scheduled appointments 07/22/2020 12:00 PM Provider MICHAEL Adam Department Gastroenterology, [facility] 07/24/2020 9:40 AM [facility] 3:00 PM Provider Cooper Hemphill DO Department Cardiology, [facility] Pending Studies at Discharge: No Stand-Alone Forms: My [facility] Skilled Items Patient informed of condition?: Yes DNR: Yes Discharge Level of Care: Other Communicable Disease: No Discharge Prognosis: Stable Lines: None Urinary Catheter: No Medications and DC Order Prescriptions: New Lantus Solostar U-100 Insulin 100 unit/mL (3 mL) Insulin Pen 20 unit SC DAILY 30 Days Qty: 6 RF: 0 lactulose 20 gram/30 mL Solution 90 ml PO TID 30 Days Qty: 8100 RF: 1 Continued pantoprazole 40 mg tablet,delayed release (DR/EC) 40 mg PO BID RF: 0 escitalopram oxalate 5 mg tablet 5 mg PO DAILY@0800 RF: 0 tamsulosin 0.4 mg capsule 0.4 mg PO DAILY@0800 RF: 0 folic acid 1 mg tablet 1 mg PO DAILY@0800 RF: 0 metoprolol tartrate 25 mg tablet 25 mg PO BID RF: 0 ferrous gluconate 324 mg (38 mg iron) Tablet 324 mg PO BID RF: 0 rifaximin 550 mg Tablet 550 mg PO BID RF: 0 Jardiance 25 mg Tablet 25 mg PO DAILY@0800 RF: 0 nitroglycerin 0.4 mg Tablet, Sublingual 0.4 mg sublingual UD PRN (Reason: Chest Pain) RF: 0 furosemide [Lasix] 20 mg Tablet 20 mg PO DAILY@0800 RF: 0 albuterol sulfate [Ventolin HFA] 90 mcg/actuation Hfa Aerosol Inhaler 2 puff INHALATION Q4H PRN (Reason: SHORT OF BREATH) RF: 0 fluticasone propionate [Flonase Allergy Relief] 50 mcg/actuation [place],Suspension 1 spray INTRANASAL DAILY RF: 0 magnesium oxide 400 mg magnesium Tablet 400 mg PO BID RF: 0 ipratropium-albuterol 0.5 mg-3 mg(2.5 mg base)/3 mL Solution For Nebulization 3 ml INHALATION QID RF: 0 insulin aspart U-100 [Novolog Flexpen U-100 Insulin] 100 unit/mL (3 mL) insulin pen 0 unit SUBCUT TID RF: 0 potassium chloride 20 mEq Tablet Extended Release 20 meq PO DAILY@0800 RF: 0 Discontinued lactulose 10 gram/15 mL (15 mL) Solution 60 g PO TID Qty: 0 RF: 0 Lantus Solostar U-100 Insulin 100 unit/mL (3 mL) insulin pen 28 unit subcut BID RF: 0 acetaminophen [Tylenol] 325 mg Tablet 650 mg PO Q4 PRN (Reason: Fever Or Pain) RF: 0 Discharge Orders: Discharge Order (Routine); Ordered 07/18/20 Ordered By: Saji Shin Admission Data Admit Date/Time: 07/15/20 02:17 Attending Provider: Saji Shin Admit Provider: Bj Davies Primary Care Provider: Duglas Evans Other Providers: Bj Davies ; Madeline Chan ; Sara Holly ; Agus Fritz ; Bia Flores ; Armando Green ; Zoraida Cleaning ; Kiran Russell ; Benitez Hankins ; José Christy ; Mariah Mcdaniel ; Rocio Garcia ; Neda Godinez ; Malissa Hartley ; Bernabe Salomon ; Chama,Crossett ; [facility], ; Sally Griffin.
== END 2020-07-18 16:00 | disposition hospice, inpatient (51) | DRG 443 ==
LOC: ED 20:34 → 2S 07-15 02:17 → 3W 07-15 12:54